=== PATIENT | female | born 1945 | race Caucasian/White ===

== ENCOUNTER 2019-04-07 10:59 | Emergency (ER) | payer OTHER, MEDICARE ==
--- OUTSIDE RECORDS SUMMARY | 2019-04-07 11:02 | XMS REPORT ---
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
--- OUTSIDE RECORDS SUMMARY | 2019-04-07 11:02 | XMS REPORT ---
:1945 Author Organization [employer] Care Team Providers Name Role Phone Jaziel Felder Provider Role Unavailable Allergies No Known Allergies [...] Problem Malaise and fatigue R53.81 Active Medications Medication Code Code Instructions Start End Date Status Dosage System Date Tramadol HCl [facility] 11043028629 50 MG Orally Apr 05, Active 1 tablet Once a day PRN 2019 as needed Pain Results No Known Results Summary Purpose [employer]Works Submission
--- OUTSIDE RECORDS SUMMARY | 2019-04-07 11:02 | XMS REPORT ---
[...] Medications Results No Known Results Summary Purpose [facility] Submission
--- OUTSIDE RECORDS SUMMARY | 2019-04-07 11:02 | XMS REPORT ---
:1945 Author Organization [employer] Care Team Providers Name Role Phone Padmini Hay Provider Role Unavailable Allergies, Adverse Reactions, Alerts Substance Reaction Event Type codeine Info Not Available Drug Allergy MORPHINE rash Drug Allergy Problems Problem Type Condition Code Onset Dates Condition Status Assessment Seasonal allergic rhinitis, J30.2 Active unspecified trigger Problem Vitamin D deficiency E55.9 Active Problem Benign essential HTN I10 Active Problem Anxiety and depression F41.8 Active Problem Current moderate episode of major F32.1 Active depressive disorder without prior episode Problem Gastro-esophageal reflux disease K21.9 Active without esophagitis Problem 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 Problem Restless leg syndrome G25.81 Active Problem Malaise and fatigue R53.81 Active Medications Medication Code Code Instructions Start End Status Dosage System Date Date Estrace [facility] 57772089983 0.1 MG/GM Active as Vaginal Daily directed for 2 Weeks, 2 Weeks off Vitamin D-1000 Max [facility] 26738625314 25 MCG ([address] [place]) Orally Once a day Amoxicillin-Pot [facility] [address]-98 Active not Clavulanate defined Requip [facility] 83397374089 3 MG Orally Active 1 tablet 1 Once a day to 3 hours before bedtime Citalopram [facility] 15822778854 40 MG Orally Active 1 tablet Hydrobromide Once a day Omeprazole [facility] 76902877153 10 MG Orally Active 1 capsule Once a day Ropinirole HCl [facility] [address]-76 Active not defined MethylPREDNISolone ND 04776159565 4 MG Orally Dec 23, Active as 2019 directed Hydrocodone-Acetamin [facility] [address]-14 Active not ophen defined Medrol [facility] 31639934280 4 MG Orally as Active as directed directed Vitamin D3 [facility] 10232857545 1000 UNIT Active 1 capsule Orally Once a day Trazodone HCl [facility] 88418465191 50 MG Orally Active 1 tablet Once a day at bedtime as needed Tramadol HCl ND 0 Active not defined Ropinirole HCl [facility] 33776649294 3 mg Active TAKE 1 TABLET BY MOUTH 1 TO 3 HOUR BEFORE AT BEDTIME. Results No Known Results Summary Purpose eClinicalWorks Submission
[2019-04-07] MEDS ORDERED: ONDANSETRON 4 MG/2 ML VIAL ONE (12:45)
[2019-04-07] MEDS ORDERED: FENTANYL CITR 100 MCG/2 ML ONE (12:45)
[2019-04-07 12:55] LABS: Hematocrit 36.6 % (36.0-45.0); RBC Red Blood Cell Count 4.02 M/uL (3.86-4.86)
--- NOTE | 2019-04-07 12:55 | RAD REPORT ---
EXAM DESCRIPTION: CT - Stone Protocol - 04/07/2019 12:38 pm CLINICAL HISTORY: Flank pain. Flank pain;Abd pain COMPARISON: <Comparisons> TECHNIQUE: Axial images were obtained without oral or IV contrast. Lack of contrast limits solid org an and vascular assessment. The [id number] spans the entirety of the system partially obscuring uppermost abdomen and lung bases. Coronal reformatted images were obtained and reviewed. All CT scans are performed using dose optimization technique as appropriate and may include automated exposure control or mA/KV adjustment according to patient size. FINDINGS: The lower lung babin are clear. Imaged portions of the liver and spleen show no suspicious findings on non-contrast imaging. The panc reas and adrenal glands are normal. No pathologic lymphadenopathy in the abdomen or pelvis. No urinary tract stones or obstructive uropathy. No bowel obstruction, free air, free fluid or abscess. Normal appendix noted. Moderate lower lumbar degenerative changes are present with mild degenerative anterolisthesis of L4 o n 5 seen. IMPRESSION: No urinary tract stones or obstructive uropathy. Moderate lower lumbar degenerative changes.
[2019-04-07 12:56] LABS: Absolute Lymphocytes (CBC) 2.3 K/uL (0.7-4.9); Basophils % 0.7 % (0-1.3); Lymphocytes % 32.8 % (15.3-44.8); MPV 8.2 fL (7.6-11.3)
[2019-04-07 13:20] LABS: Albumin 3.3 g/dL (3.4-5.0); Bilirubin Direct 0.1 mg/dL (0-0.2); Bilirubin Total 0.5 mg/dL (0.2-1.0); Potassium 3.4 mmol/L (3.5-5.1); Thyroid Stimulating Hormone 0.864 uIU/mL (0.360-3.740)
--- NOTE | 2019-04-07 13:33 | ER ---
Nurse's Notes [facility] Name: Oralia Garcia Age: 73 yrs Sex: Female : 1945 Arrival Date: 04/07/2019 Time: 11:01 Bed 6 Private MD: Diagnosis: Lumbago with sciatica, left side;Unspecified abdominal pain Presentation: 04/07 11:05 Presenting complaint: Patient states: "I hurt my back, I've been going to Dr. Dias, aj1 but I think I've pinched a nerve, it hurts so bad to bend over or stoop, and its going down my leg and its nauseating me. This has been going on for a week" Denies any recent injury to her back. Reports that she has had X-Rays done at Dr. Dias's office and they were normal. Transition of care: patient was not received from another setting of care. Onset of symptoms was April 07, 2019. Risk Assessment: Do you want to hurt yourself or someone else? Patient reports no desire to harm self or others. Initial Sepsis Screen: Does the patient meet any 2 criteria? No. Patient's initial sepsis screen is negative. Does the patient have a suspected source of infection? No. Patient's initial sepsis screen is negative. Care prior to arrival: None. 11:05 Method Of Arrival: Ambulatory aj1 11:05 Acuity: LIGIA 4 aj1 Triage Assessment: 11:08 General: Appears in no apparent distress. uncomfortable, Behavior is calm, cooperative, aj1 appropriate for age. Pain: Complains of pain in back Pain radiates to right leg and left leg Pain currently is 10 out of 10 on a pain scale. Neuro: Level of Consciousness is awake, alert, obeys commands, Oriented to person, place, time, situation. Cardiovascular: Patient's skin is warm and dry. Respiratory: Airway is patent Respiratory effort is even, unlabored, Respiratory pattern is regular, symmetrical. Musculoskeletal: Circulation, motion, and sensation intact. Historical: - Allergies: 11:08 Morphine; aj1 11:08 Codeine; aj1 - Home Meds: 11:08 None [Active]; aj1 - PMHx: 11:08 Hypertension; aj1 - PSHx: 11:08 Hysterectomy; Cholecystectomy; Tubal ligation; bladder lift; aj1 - Immunization history:: Flu vaccine is not up to date. - Social history:: Smoking status: Patient/guardian denies using tobacco. - Ebola Screening: : Patient denies travel to an Ebola-affected area in the 21 days before illness onset. Screenin:44 Abuse screen: Denies threats or abuse. Denies injuries from another. Nutritional ca1 screening: No deficits noted. Tuberculosis screening: No symptoms or risk factors identified. Fall Risk IV access (20 points). Gait- Weak (10 pts.). Total Galvin Fall Scale indicates Low Risk Score (25-44 pts). Fall prevention measures have been instituted. Side Rails Up X 2 Placed close to Nursing Station Frequent Obs/Assesments occuring As available Patient and Family Educated on Fall Prevention Program and strategies. Assessment: 12:44 General: Appears in no apparent distress. uncomfortable, Behavior is calm, cooperative, ca1 appropriate for age. Pain: Complains of pain in low back area Pain radiates to right leg Pain currently is 10 out of 10 on a pain scale. Quality of pain is described as sharp, shooting, Pain began 2-3 days ago. Is continuous. Neuro: Level of Consciousness is awake, alert, obeys commands, Oriented to person, place, time, situation, Moves all extremities. Cardiovascular: Patient's skin is warm and dry. Respiratory: Airway is patent Respiratory effort is even, unlabored, Respiratory pattern is regular, symmetrical. GI: Reports nausea. : No signs and/or symptoms were reported regarding the genitourinary system. EENT: No signs and/or symptoms were reported regarding the EENT system. Derm: Skin is pink, warm \\T\\ dry. 13:30 Reassessment: Patient appears in no apparent distress at this time. Patient and/or hb family updated on plan of care and expected duration. Pain level reassessed. Patient is alert, oriented x 3, equal unlabored respirations, skin warm/dry/pink. Vital Signs: 11:08 BP 133 / 83; Pulse 72; Resp 18; Temp 97.7; Pulse Ox 98% on R/A; Weight 99.79 kg (R); aj1 Height 5 ft. 4 in. (162.56 cm) (R); Pain 10/10; 12:00 BP 136 / 82; Pulse 70; Resp 15; Pulse Ox 100% on R/A; hb 11:08 Body Mass Index 37.76 (99.79 kg, 162.56 cm) aj1 ED Course: 11:01 Patient arrived in ED. as 11:07 Triage completed. aj1 11:08 Arm band placed on Patient placed in waiting room, Patient notified of wait time. aj1 11:43 Booker Cunningham NP is PHCP. pm1 11:43 Joshua Lincoln MD is Attending Physician. pm1 11:44 Attending Physician role handed off by Joshua Lincoln MD liset 11:44 Cyril Felton MD is Attending Physician. [facility] 11:50 Carey Mcnamara RN is Primary Nurse. jl7 12:38 Initial lab(s) drawn, by or, sent to lab. Inserted saline lock: 22 gauge in right ca1 forearm, using aseptic technique. Blood collected. 12:44 Patient has correct armband on for positive identification. Bed in low position. Call ca1 light in reach. Side rails up X 1. Pulse ox on. NIBP on. Warm blanket given. 12:46 CT Stone Protocol In Process Unspecified. EDMS 14:07 No provider procedures requiring assistance completed. IV discontinued, intact, jl7 bleeding controlled, No redness/swelling at site. Pressure dressing applied. Administered Medications: 13:45 Not Given (Other Intervention Used): fentaNYL (PF) 50 mcg IVP once; RASS on ADMIN: ss Combtv4, Very Agttd3, Agttd2, Rstlss1, AlertClm0, Drwsy-1, Lt Sdtn-2, Mod Sdtn-3, Dp Sdtn-4, UnArsble-5 13:50 Drug: TORadol - Ketorolac 15 mg Route: IVP; Site: right forearm; jl7 14:06 Follow up: Response: No adverse reaction; Pain is unchanged, physician notified jl7 13:51 Drug: Zofran 4 mg Route: IVP; Site: right forearm; jl7 14:07 Follow up: Response: No adverse reaction jl7 14:06 Drug: Lidocaine-Tetracaine 2 application Route: Topical; Site: affected area; jl7 14:06 Follow up: Response: Medication administered at discharge. jl7 Outcome: 13:32 Discharge ordered by . pm1 14:07 Discharged to home ambulatory. jl7 14:07 Condition: stable 14:07 Discharge instructions given to patient, Instructed on discharge instructions, follow up and referral plans. medication usage, Demonstrated understanding of instructions, follow-up care, medications, Prescriptions given X 2. 14:10 Patient left the ED. jl7 Signatures: Dispatcher [employer] EDJeanie Nunez RN RN aj1 Cyril Felton MD MD cha Martinez, Amelia as Marinas, Patrick, TOOL FILER HAND TOOL FILER HAND pm1 Marina Ayoub RN RN Carey Mcnamara RN RN jl7 Liz Dugan RN RN ca1 Tsering Ramos RN ss
--- NOTE | 2019-04-07 13:34 | EDPHYS ---
Physician Documentation [facility] Name: Oralia Garcia Age: 73 yrs Sex: Female : 1945 Arrival Date: 04/07/2019 Time: 11:01 Bed 6 Private MD: ED Physician Cyril Felton HPI: 04/07 12:29 This 73 yrs old Female presents to ER via Ambulatory with complaints of Back pm1 Pain, Nausea. 12:29 The patient presents with pain that is chronic, with no known mechanism of injury. The pm1 symptoms are located in the low back. Onset: The symptoms/episode began/occurred Back problems for many years but worse the past few weeks. Increased pain with bending forward. Noticed that her pain has been progressively getting worse since . The pain radiates to the left leg. Associated signs and symptoms: Pertinent positives: abdominal pain, nausea, Pertinent negatives: chest pain, dysuria, fever, incontinence, numbness, tingling, vomiting, weakness. Modifying factors: The patient symptoms are alleviated by rest, specific position, the patient symptoms are aggravated by bending. Severity of symptoms: in the emergency department the symptoms are actually worse. Has been seeing Dr. Dias for her right shoulder pain. Historical: - Allergies: 11:08 Morphine; aj1 11:08 Codeine; aj1 - Home Meds: 11:08 None [Active]; aj1 - PMHx: 11:08 Hypertension; aj1 - PSHx: 11:08 Hysterectomy; Cholecystectomy; Tubal ligation; bladder lift; aj1 - Immunization history:: Flu vaccine is not up to date. - Social history:: Smoking status: Patient/guardian denies using tobacco. - Ebola Screening: : Patient denies travel to an Ebola-affected area in the 21 days before illness onset. ROS: 12:29 Constitutional: Negative for fever, chills, and weight loss, Eyes: Negative for injury, pm1 pain, redness, and discharge, ENT: Negative for injury, pain, and discharge, Neck: Negative for injury, pain, and swelling, Cardiovascular: Negative for chest pain, palpitations, and edema, Respiratory: Negative for shortness of breath, cough, wheezing, and pleuritic chest pain. 12:29 : Negative for injury, bleeding, discharge, and swelling, MS/Extremity: Negative for injury and deformity, Skin: Negative for injury, rash, and discoloration, Neuro: Negative for headache, weakness, numbness, tingling, and seizure. 12:29 Abdomen/GI: Positive for abdominal pain, nausea, of the abdomen diffusely, Negative for vomiting, diarrhea, constipation. 12:29 Back: Positive for flank pain, on the left, radiation to left lower leg. Exam: 12:29 Constitutional: This is a well developed, well nourished patient who is awake, alert, pm1 and in no acute distress. Head/Face: Normocephalic, atraumatic. Neck: Trachea midline, no thyromegaly or masses palpated, and no cervical lymphadenopathy. Supple, full range of motion without nuchal rigidity, or vertebral point tenderness. No Meningismus. Chest/axilla: Normal chest wall appearance and motion. Nontender with no deformity. No lesions are appreciated. Cardiovascular: Regular rate and rhythm with a normal S1 and S2. No gallops, murmurs, or rubs. Normal PMI, no JVD. No pulse deficits. Respiratory: Lungs have equal breath sounds bilaterally, clear to auscultation and percussion. No rales, rhonchi or wheezes noted. No increased work of breathing, no retractions or nasal flaring. Abdomen/GI: Soft, non-tender, with normal bowel sounds. No distension or tympany. No guarding or rebound. No evidence of tenderness throughout. 12:29 Skin: Warm, dry with normal turgor. Normal color with no rashes, no lesions, and no evidence of cellulitis. MS/ Extremity: Pulses equal, no cyanosis. Neurovascular intact. Full, normal range of motion. 12:29 Back: normal spinal alignment noted, vertebral tenderness, is not appreciated, Straight leg raises: right lower extremity does not illicit pain, left lower extremity illicits pain, at 30 degrees. 12:29 Neuro: Orientation: is normal, Motor: is normal, moves all fours, Sensation: is normal, no obvious gross deficits. Vital Signs: 11:08 BP 133 / 83; Pulse 72; Resp 18; Temp 97.7; Pulse Ox 98% on R/A; Weight 99.79 kg (R); aj1 Height 5 ft. 4 in. (162.56 cm) (R); Pain 10/10; 12:00 BP 136 / 82; Pulse 70; Resp 15; Pulse Ox 100% on R/A; hb 11:08 Body Mass Index 37.76 (99.79 kg, 162.56 cm) aj1 MDM: 11:44 Patient medically screened. liset 13:30 Data reviewed: vital signs. Data interpreted: Pulse oximetry: on room air is 98 %. pm1 Interpretation: normal. Counseling: I had a detailed discussion with the patient and/or guardian regarding: the historical points, exam findings, and any diagnostic results supporting the discharge/admit diagnosis, lab results, radiology results, the need for outpatient follow up, for definitive care, a neurosurgeon, for MRI as needed, to return to the emergency department if symptoms worsen or persist or if there are any questions or concerns that arise at home. 04/07 12:14 Order name: Basic Metabolic Panel; Complete Time: 13:28 pm1 04/07 12:14 Order name: CBC with Diff; Complete Time: 13:28 pm1 04/07 12:14 Order name: Creatinine for Radiology; Complete Time: 13:57 pm1 04/07 12:14 Order name: Hepatic Function; Complete Time: 13:28 pm1 04/07 12:14 Order name: Lipase; Complete Time: 13:28 pm1 04/07 12:14 Order name: TSH; Complete Time: 13:28 pm1 04/07 12:14 Order name: IV Saline Lock; Complete Time: 12:42 pm1 04/07 12:14 Order name: Labs collected and sent; Complete Time: 12:42 pm1 04/07 12:14 Order name: CT Stone Protocol; Complete Time: 13:02 pm1 Administered Medications: 13:45 Not Given (Other Intervention Used): fentaNYL (PF) 50 mcg IVP once; RASS on ADMIN: ss Combtv4, Very Agttd3, Agttd2, Rstlss1, AlertClm0, Drwsy-1, Lt Sdtn-2, Mod Sdtn-3, Dp Sdtn-4, UnArsble-5 13:50 Drug: TORadol - Ketorolac 15 mg Route: IVP; Site: right forearm; jl7 14:06 Follow up: Response: No adverse reaction; Pain is unchanged, physician notified jl7 13:51 Drug: Zofran 4 mg Route: IVP; Site: right forearm; jl7 14:07 Follow up: Response: No adverse reaction [facility] 14:06 Drug: Lidocaine-Tetracaine 2 application Route: Topical; Site: affected area; [facility] 14:06 Follow up: Response: Medication administered at discharge. [facility] Disposition: 04/08 07:30 Co-signature as Attending Physician, Cyril Felton MD I agree with the assessment and liset plan of care. Disposition: 04/07/19 13:32 Discharged to Home. Impression: Lumbago with sciatica, left side, Unspecified abdominal pain. - Condition is Stable. - Discharge Instructions: Abdominal Pain, Adult, Back Pain, Adult, Sciatica. - Prescriptions for Zofran 4 mg Oral Tablet - take 1 tablet by ORAL route every 12 hours As needed; 20 tablet. Lidoderm 5 % Topical adhesive patch,medicated - apply 1 patch by TRANSDERMAL route once daily As needed; 30 unit. - Medication Reconciliation Form, Thank You Letter, Antibiotic Education, Prescription Opioid Use form. - Follow up: Emergency Department; When: As needed; Reason: Worsening of condition. Follow up: Private Physician; When: 2 - 3 days; Reason: Recheck today's complaints, Continuance of care, Re-evaluation by your physician. - Problem is new. - Symptoms have improved. Signatures: Dispatcher [employer] EDMS Jeanie Shirley RN RN aj1 Cyril Felton MD MD cha Marinas, Patrick, JERRY SHRIMP BOAT CAPTAIN pm1 Carey Mcnamara RN RN jl7 Tsering Ramos RN ss Corrections: (The following items were deleted from the chart) 04/07 14:10 13:32 04/07/2019 13:32 Discharged to Home. Impression: Lumbago with sciatica, left jl7 side; Unspecified abdominal pain. Condition is Stable. Forms are Medication Reconciliation Form, Thank You Letter, Antibiotic Education, Prescription Opioid Use. Follow up: Emergency Department; When: As needed; Reason: Worsening of condition. Follow up: Private Physician; When: 2 - 3 days; Reason: Recheck today's complaints, Continuance of care, Re-evaluation by your physician. Problem is new. Symptoms have improved. pm1
[2019-04-07] MEDS ORDERED: KETOROLAC 30 MG/ML INJ ONE (13:48)
[2019-04-07] MEDS ORDERED: LIDOCAINE 4% PATCH ONE (13:58)
[2019-04-07 14:17] VITALS: TEMP 97.7
[2019-04-07 14:19] VITALS: BP 136/82; O2SAT 100
== END 2019-04-07 14:10 | disposition home or self-care (01) ==
LOC: ER 10:59
DX: M54.42 Lumbago with sciatica, left side (principal); R10.9 Unspecified abdominal pain; Z88.6 Allergy status to analgesic agent
CPT/HCPCS: 85025; 80048; 36415; 80076; 84443; 83690; 76377; 74176; 96375; 96374; 99284; J2405; J3010

== ENCOUNTER 2020-11-26 15:02 | Emergency (ER) | payer OTHER ==
--- OUTSIDE RECORDS SUMMARY | 2020-11-26 15:06 | XMS REPORT | Continuity of Care Document ---
:1945 Author Organization [facility] t Address [address] [place] [address] Care Team Providers Name Role Phone Obi-Ofodile Attending Clinician Obi-Ofodile Admitting Clinician Problems Condition Condition Condition Status Onset Resolution Last Treating Co mments Source Name Details Category Date Date Treatment Clinician Date OBSTRUCTED Diagnosis Active 2016-09-02 Memoria UROPATHY 09-02 04:16:00 l 00:00: [place] OBSTRUCTED 00 UROPATHY Active 09/02/2016 [facility] KIDNEY Diagnosis Active 2016-09-07 Mem oria STONE ON 09-02 21:56:00 l RIGHT KIDNEY 00:00: [place] SIDE, STONE ON 00 ACCELERATE RIGHT D SIDE, ACCELERATE D Active 09/02/2016 [facility] ESSENTIAL Diagnosis Active 2016-09-07 Memoria (PRIMARY) 21:56:00 l HYPERTENSI Sheldon n ON ESSENTIAL (PRIMARY) HYPERTENSI ON Active [facility] ILLNESS, Diagnosis Active 2016-09-02 M emoria UNSPECIFIE 04:16:00 l D ILLNESS, [place]ldon n UNSPECIFIE D Active [facility] CALCULUS Diagnosis Active 2016-09-07 M emoria OF KIDNEY 21:56:00 l CALCULUS [place]on n OF KIDNEY Active [facility] Allergies, Adverse Reactions, Alerts Allergy Allergy Status Severity Reaction(s) Onset Inactive Treating Comm ents Source Name Type Date Date Clinician morphine morphine Active Memori a l [place] codeine Adverse Active rash [facility] MORPHINE Adverse Active rash [facility] Social History Smoking Status Start Date Stop Date Source Social History [facility] Medications Ordered Filled Start Stop Current Ordering Indication Dosage Frequency Signature Comments Components Source Medication Medication Date Date Medication? Clinician (SIG) Name Name Zolpidem Zolpidem 0 Yes Jaziel [address] [facility] Tartrate Tartrate 10-29 Fel[place] at bedtime [facility] 00:[facility]: Memoria 00 [facility] ondansetron No Route: IV, Memoria (ANES) 09-02 Drug form: l 16:25: INJ, ONCE, Stop date: 09/02/16 11:25:00 CDT dexamethaso No Route: IV, Memoria ne (ANES) 09-02 Drug form: l 16:25: INJ, ONCE, Stop date: 09/02/16 11:25:00 CDT propofol No Route: IV, Mem oria (ANES) 09-02 Drug form: l 16:25: INJ, ONCE, Stop date: 09/02/16 11:25:00 CDT lidocaine No Route: IV, Me moria (ANES) 09-02 Drug form: l 16:25: INJ, ONCE, Stop date: 09/02/16 11:25:00 CDT midazolam No Route: IV, Me moria (ANES) 09-02 Drug form: l 16:25: SOLN, Broderick 00 ONCE, Stop date: 09/02/16 11:25:00 CDT fentaNYL No Route: IV, Mem oria (ANES) 09-02 Drug form: l 16:25: INJ, ONCE, Stop date: 09/02/16 11:25:00 CDT tramadol Yes 1 - 2 Memoria hydrochlori -06 tabs, PO, l de 50 MG 16:23: Q4-6H, PRN Her jasso Oral Tablet 00 Pain Score [Ultram] 1-5, X 4 day, # 30 tab, 0 Refill(s) Phenazopyri Yes 200 mg = 1 Memoria dine 5-06 tab, PO, l hydrochlori 16:23: TID, PRN He qiann de 200 MG 00 Dysuria, X Oral Tablet 10 day, # [Pyridium] 30 tab, 0 Refill(s) Cephalexin Yes 500 mg = 1 M emoria 500 MG Oral 506 cap, PO, l Capsule 16:23: BID, X 10 Esme nn [Keflex] 00 day, # 20 cap, 0 Refill(s) acetaminoph No Route: IV, Memoria en (ANES) 09-02 Drug form: l (ANES) 16:00: INJ, Start Esme nn date: 09/02/16 11:00:00 CDT, Stop date: 09/02/16 12:00:00 CDT ceFAZolin No Route: IV, Me moria (ANES) 09-02 Drug form: l (ANES) 15:45: INJ, Start Esme nn date: 09/02/16 10:45:00 CDT, Stop date: 09/02/16 11:45:00 CDT sodium No Route: IV, Memor ia chloride 09-02 Total l 0.9% 1000 15:45: Volume: Esme nn ml INJ 00 1,000, (ANES) Start date: 09/02/16 10:45:00 CDT, Stop date: 09/02/16 11:45:00 CDT Hydromorpho No Notes: Diallo dulce maria ne -06 Same as l 15:14: Dilaudid Meperidine No Notes: Memor ia 5-06 (Same As: l 15:14: Demerol) Naloxone No Notes: Memoria 5-06 Same as l 15:14: Narcan Diphenhydra No Notes: Diallo dulce maria mine -06 (Same as: l 15:14: Benadryl) Glycopyrrol No Notes: Diallo dulce maria ate -06 (Same as: l 15:14: Robinul) Flumazenil No Notes: Memor ia 5-06 (Same as: l 15:14: Romazicon) Ephedrine No Notes: Memori a 5-06 final l 15:14: concentrat ion 5 mg/mL Promethazin No Notes: Do M emoria e 5-06 not give l 15:14: IV push. [place] (Same as: Phenergan) esmolol No Notes: Memoria 5-06 (Same as: l 15:14: Brevibloc) Labetalol No Notes: Memori a 5-06 (Same as: l 15:14: Normodyne, Trandate) Push over 2 minutes Give bolus over 2-3 minutes. Metoprolol No Notes: Memor ia 5-06 (Same as: l 15:14: Lopressor) Push over 2 minutes Hydralazine No Notes: Diallo dulce maria 5-06 (Same as: l 15:14: Apresoline ) Push over 5 minutes Calcium No 1,000 mL, Memor ia Chloride 06 Rate: 75 l 0.0014 15:14: ml/hr, [place] MEQ/ML / 00 Infuse Potassium over: 13.3 Chloride hr, Route: 0.004 IV, Dosing MEQ/ML / Weight Sodium 101.818 Chloride kg, Total 0.103 Volume: MEQ/ML / 1,000, Sodium Start Lactate date: 0.028 09/02/16 MEQ/ML 10:14:00 Injectable CDT, Solution Duration: 30 day, Stop date: 10/02/16 10:13:00 CDT Docusate No Notes: Memoria 5-06 (Same as: l 14:00: Colace) (Do Not Crush) Dilaudid No Notes: Memoria 5-06 Same as l 10:38: Dilaudid Saline No Notes: Memoria Flush 0.9% -06 (Same as: l 10:32: BD Posiflush) Sodium No 1,000 mL, Memori a Chloride 5-06 Rate: 75 l 0.154 10:32: ml/hr, [place] MEQ/ML 00 Infuse Injectable over: 13.3 Solution hr, Route: IV, Dosing Weight 101.818 kg, Total Volume: 1,000, Start date: 09/02/16 5:32:00 CDT, Duration: 30 day, Stop date: 10/02/16 5:31:00 CDT Ondansetron No Notes: Diallo dulce maria 09-02 (Same as: l 10:32: Zofran) [place] 00 MEDICATION WASTE Product Size: 4 mg Product Wasted: ___ mg Zofran No Notes: Memoria 09-02 (Same as: l 09:59: Zofran) [place] 00 MEDICATION WASTE Product Size: 4 mg Product Wasted: ___ mg Dilaudid No Notes: Memoria 09-02 Same as l 09:58: Dilaudid [place] 00 Sodium No 1,000 mL, Memori a Chloride 09-02 Rate: 125 l 0.154 09:52: ml/hr, [place] MEQ/ML 00 Infuse Injectable over: 8 Solution hr, Route: IV, Dosing Weight 101.818 kg, Total Volume: 1,000, Start date: 09/02/16 4:52:00 CDT, Duration: 30 day, Stop date: 10/02/16 4:51:00 CDT Trazodone Trazodone Yes Jaziel [address] [facility] HCl HCl Felder at bedtime [facility] Ondansetron Ondansetron Yes Jaziel not [facility] HCl HCl [facility] defined [facility] Mupirocin Mupirocin Yes Jaziel not [facility] Estrace Estrace Yes Jaziel as [facility] Citalopram Citalopram Yes Jaziel [address] [facility] Hydrobromid Hydrobromid Felder [facility] Lidocaine Lidocaine Yes Jaziel not [facility] Omeprazole Omeprazole Yes Jaziel [address] [facility] Requip Requip Yes Jaziel [address] [facility] Felder to 3 hours [facility] before [facility] Hydrocodone Hydrocodone Yes Jaziel (Schedule [facility] -Acetaminop -Acetaminop Felder II Drug) [facility] - hen hen TK 1 T PO Memoria Q 12 H l Outpati ent Clinics Ropinirole Ropinirole Yes Jaziel TAKE [address] [facility] HCl HCl [place]der TABLET BY [facility] - MOUTH 1 TO Memoria 3 HOUR l BEFORE AT Outpati BEDTIME. ent Clinics Celecoxib Celecoxib Yes Jaziel [address] [facility] [place] with food [facility] Methocarbam Methocarbam Yes Jaziel [address] [facility]der [facility] Immunizations Ordered Filled Immunization Date Status Comments Sourc e Immunization Name Name FluAD FluAD 2018-05-[address] [facility]00 [facility] Out[facility] Vital Signs Vital Name Observation Time Observation Value Comments Source Respitory Rate 2016-09-02 17:15:00 Memori al [place] Systolic (mm Hg) 2016-09-02 17:15:00 Diallo rial [place] Diastolic (mm Hg) 2016-09-02 17:15:00 Mem orial [place] Heart Rate 2016-09-02 17:15:00 [facility] [place] Respitory Rate 2016-09-02 17:00:00 Memori al [place] Systolic (mm Hg) 2016-09-02 17:00:00 Diallo rial [place] Diastolic (mm Hg) 2016-09-02 17:00:00 Mem orial [place] Diastolic (mm Hg) 2016-09-02 16:45:00 Mem orial [place] Respitory Rate 2016-09-02 16:45:00 Memori al [place] Systolic (mm Hg) 2016-09-02 16:45:00 Diallo rial [place] Heart Rate 2016-09-02 14:11:00 [facility] [place] Heart Rate 2016-09-02 12:41:00 [facility] [place] Temperature Oral (F) 2016-09-02 12:41:00 98.0 F [facility] [place] Height 2016-09-02 09:36:00 162.56 cm [facility] Weight 2016-09-02 09:36:00 [facility] [place] BMI Calculated 2016-09-02 09:36:00 Memori al [place] Temperature Oral (F) 2016-09-02 09:31:00 97.8 F [facility] Procedures This patient has no known procedures. Encounters Start End Encounter Admission Attending Care Care Encounter Source Date/Time Date/Time Type Type Clinicians Facility Department ID 2020-11-18 2020-11-18 Outpatient [facility] [id number] [facility] 2020-11-11 2020-11-11 Outpatient [facility]LMLC [facility] [id number] [facility] 2020-11-10 2020-11-10 Outpatient [facility] [id number] [facility] 2020-11-04 2020-11-04 [facility] [id number] [facility] 2020-10-15 2020-10-15 [facility] [id number] [facility] 2020-09-16 2020-09-16 Out[facility] [id number] [facility] 2020-09-07 2020-09-07 Outpatient STLMLC STLMLC [id number] [facility] 2020-09-02 2020-09-02 Outpatient [facility]C [facility] [id number] [facility] 2020-08-24 2020-08-24 Outpatient STLMLC STLMLC [id number] [facility] 2020-08-05 2020-08-05 Outpatient STLMLC STLMLC [id number] [facility] 2020-07-22 2020-07-22 Outpatient STLMLC STLMLC [id number] [facility] 2020-06-09 2020-06-09 Outpatient STLMLC STLMLC [id number] [facility] 2020-06-02 2020-06-02 Outpatient STLMLC STLMLC [id number] [facility] 2020-05-13 2020-05-13 Outpatient STLMLC STLMLC [id number] [facility] 2020-04-28 2020-04-28 Outpatient STLMLC STLMLC [id number] [facility] 2020-04-13 2020-04-13 Outpatient STLMLC STLMLC [id number] [facility] 2020-03-30 2020-03-30 Outpatient STLMLC STLMLC [id number] [facility] 2020-03-22 2020-03-22 Outpatient STLMLC STLMLC [id number] [facility] 2020-03-16 2020-03-16 Outpatient STLMLC STLMLC [id number] [facility] 2020-03-02 2020-03-02 Outpatient STLMLC STLMLC [id number] [facility] 2020-02-20 2020-02-20 Outpatient STLMLC STLMLC [id number] [facility] 2020-01-26 2020-01-26 Outpatient STLMLC STLMLC [id number] [facility] 2020-01-15 2020-01-15 [facility] [id number] [facility] 14:00:00 14:00:00 [place] [employer] [facility] Medicine l Medicine Outpati ent Clinics 2019-12-29 2019-12-29 [facility] [id number] [facility] 15:30:00 15:30:00 [place] [employer] [facility] l Medicine Outpati ent Clinics 2019-12-15 2019-12-15 [facility] [id number] [facility] 15:30:00 15:30:00 [place] [employer] [facility] Medicine l Medicine Outpati ent Clinics 2019-12-09 2019-12-09 [facility] [id number] [facility] 09:51:00 09:51:00 [place] [employer] [facility] Medicine Outpati ent Clinics 2019-12-01 2019-12-01 [facility] [id number] [facility] 16:45:00 16:45:00 [place] [employer] [facility] Medicine Outpati ent Clinics 2019-11-17 2019-11-17 [facility] [id number] [facility] 10:15:00 10:15:00 t [employer] [facility] Medicine Outpati ent Clinics 2019-10-30 2019-10-30 [facility] [id number] [facility] 16:00:00 16:00:00 t [employer] [facility] Medicine Outpati ent Clinics 2019-10-30 2019-10-30 [facility] [id number] [facility] 15:30:00 15:30:00 [place] [employer] [facility] Medicine Outpati ent Clinics 2019-10-16 2019-10-16 [facility] [id number] [facility] 13:30:00 13:30:00 [place] [employer] [facility] Medicine Outpati ent Clinics 2019-08-20 2019-08-20 [facility] [id number] [facility] 15:08:00 15:08:00 [place] [employer] [facility] l Medicine Outpati ent Clinics 2019 2019 [facility] [id number] [address] 10:45:00 10:45:00 t [employer] [facility] Outpati ent Clinics 2019-07-08 2019-07-08 [facility] [id number] [facility] 13:30:00 13:30:00 t [employer] [facility] Outpati ent Clinics 2019-07-02 2019-07-02 [facility] [id number] [facility] 11:14:00 11:14:00 t [employer] [facility] Medicine Outpati ent Clinics 2019-06-18 2019-06-18 [facility] [id number] [facility] 06:25:00 06:25:00 t [employer] [facility] Outpati ent Clinics 2019-06-17 2019-06-17 [facility] [id number] [facility] 14:15:00 14:15:00 t [employer] [facility] 2019-05-15 2019-05-15 [facility] [id number] [facility] 08:25:00 08:25:00 t [facility] ent Clinics 2019-05-13 2019-05-13 [facility] [id number] [facility] 14:39:00 14:39:00 t [facility] ent Clinics 2019-05-12 2019-05-12 [facility] [id number] [facility] 14:11:00 14:11:00 t [facility] ent Clinics 2019-05-07 2019-05-07 [facility] [id number] [facility] 13:00:00 13:00:00 t [employer] [facility] 2019-05-05 2019-05-05 [facility] [id number] 10:15:00 10:15:00 t [employer] [facility] ent Clinics 2019-05-01 2019-05-01 [facility] [id number] 08:30:00 08:30:00 [place] [facility] s - [facility] ent Clinics 2019-04-15 2019-04-15 [facility] [id number] 15:30:00 15:30:00 t [facility] ent Clinics 2019-04-11 2019-04-11 [facility] [id number] [facility] 11:41:00 11:41:00 t [facility] ent Clinics 2019-04-02 2019-04-02 [facility] [id number] 11:00:00 11:00:00 t [facility] ent Clinics 2019-03-05 2019-03-05 [facility] [id number] 13:00:00 13:00:00 t [facility] ent Clinics 2019-03-05 2019-03-05 [facility] [id number] 11:24:00 11:24:00 t [facility] [place] [facility] ent Clinics 2019-02-21 2019-02-21 [facility] [id number] 09:01:00 09:01:00 t [facility] ent Clinics 2019-02-12 2019-02-12 [facility] [id number] 16:21:00 16:21:00 t [facility] Clinics 2019-02-11 2019-02-11 [facility] [id number] 14:30:00 14:30:00 t [facility] ent Clinics 2019-01-30 2019-01-30 [facility] [id number] [facility] 13:10:00 13:10:00 t [facility] ent Clinics 2019-01-29 2019-01-29 [facility] [id number] 09:15:00 09:15:00 t [employer] [facility] 2018-12-23 2018-12-23 [facility] [id number] 14:30:00 14:30:00 t [facility] ent Clinics 2018-12-17 2018-12-17 [facility] [id number] [facility] 13:15:00 13:15:00 t [employer] [facility] 2018-10-03 2018-10-03 [facility] [id number] [facility] 13:30:00 13:30:00 t [facility] ent Clinics 2018-09-12 2018-09-12 [facility] [id number] [facility] 12:09:00 12:09:00 t [facility] ent Clinics 2018-09-11 2018-09-11 [facility] [id number] 10:28:00 10:28:00 t [facility] ent Clinics 2018-09-05 2018-09-05 [facility] [id number] [facility] 14:45:00 14:45:00 t [employer] [facility] 2018-08-26 2018-08-26 [facility] [id number] [facility] 13:00:00 13:00:00 t [employer] [facility] Medicine l Medicine Outpati ent Clinics 2018-07-29 2018-07-29 [facility] [id number] 16:45:00 16:45:[address] [place] [address] [facility] - [facility] Medicine l Medicine Outpati ent Clinics 2018-07-29 2018-07-29 [facility] [id number] 15:46:00 15:46:[address] [place] [address] Luke s - Drive [facility] Medicine l Medicine Outpati ent Clinics 2018-07-10 2018-07-10 [facility] [id number] [facility] 15:43:00 15:43:00 [place] [employer] [facility] s - [facility] Medicine l Medicine Outpati ent Clinics 2018-06-25 2018-06-25 [facility] [id number] 10:30:00 10:30:00 [place] [employer] [facility] s - [facility] Medicine l Medicine Outpati ent Clinics 2018-05-30 2018-05-30 [facility] [id number] [facility] 16:16:00 16:16:00 [place] [employer] [facility] - [facility] Medicine l Medicine Outpati ent Clinics 2018-05-27 2018-05-27 [facility] [id number] [facility] 13:00:00 13:00:00 [place] [employer] [facility] - [facility] Medicine l Medicine Outpati ent Clinics 2018-05-20 2018-05-20 [facility] [id number] [facility] 12:05:00 12:05:00 [place] [employer] [facility] s - [facility] Medicine l Medicine Outpati ent Clinics 2017-11-20 2017-11-20 [facility] [id number] [facility] 10:36:00 10:36:00 [place] [employer] [facility] - [facility] Medicine l Medicine Outpati ent Clinics 2017-10-02 2017-10-02 [facility] [id number] [facility] 13:15:00 13:15:[address] [place] [address] [facility] - Drive [facility] Medicine l Medicine Outpati ent Clinics 2017-09-13 2017-09-13 [facility] [id number] [facility] 10:07:00 10:07:[address] [place] [address] [facility] - Drive [facility] Medicine Outpati ent Clinics 2017-09-12 2017-09-12 [facility] [id number] [facility] 10:16:00 10:16:[address] [place] [address] [facility] - Drive [facility] Medicine Outpati ent Clinics 2017-09-11 2017-09-11 [facility] [id number] [facility] 13:15:00 13:15:[address] [place] [address] [facility] - Drive [facility] Medicine Outpati ent Clinics 2017-08-24 2017-08-24 [facility] [id number] [facility] 08:15:00 08:15:[address] [place] [address] [facility] s - Drive [facility] Outpati ent Clinics 2017-08-22 2017-08-22 [facility] [id number] 13:00:00 13:00:[address] [place] [address] [facility] s - Drive [facility] Outpati ent Clinics 2016-09-02 2016-09-02 Outpatient [facility] [id number] 05:32:00 16:00:00 , Mikael 26 Results Test Description Test Time Test Comments Results Result Comments Source CHEM PANEL 2016-09-02 0.8 [facility] 17:40:00 [place] PARATHYROID PROFILE 2016-09-02 1.17 Mem[facility] ial 17:40:00 [place] PARATHYROID PROFILE 2016-09-02 1.10 Memor ial 17:40:00 [place] CHEM PANEL 2016-09-02 2.1 [facility] 14:03:00 [place] ELECTROLYTES 2016-09-02 26 [facility] 14:03:00 [place] ELECTROLYTES 2016-09-02 8.4 [facility] 14:03:00 [place] ELECTROLYTES 2016-09-02 12.4 [facility] 14:03:00 [place] ELECTROLYTES 2016-09-02 4.4 [facility] 14:03:00 [place] ELECTROLYTES 2016-09-02 106 [facility] 14:03:00 [place] ELECTROLYTES 2016-09-02 29 [facility] 14:03:00 [place] ELECTROLYTES 2016-09-02 140 [facility] 14:03:00 [place] ELECTROLYTES 2016-09-02 51 [facility] 14:03:00 [place] ELECTROLYTES 2016-09-02 1.11 [facility] 14:03:00 [place] ELECTROLYTES 2016-09-02 98 [facility] 14:03:00 [place] ELECTROLYTES 2016-09-02 4.4 [facility] 14:03:00 [place] ELECTROLYTES 2016-09-02 8.4 [facility] 14:03:00 [place] ELECTROLYTES 2016-09-02 3.0 [facility] 14:03:00 [place] ELECTROLYTES 2016-09-02 25 [facility] 14:03:00 [place] ELECTROLYTES 2016-09-02 107 [facility] 14:03:00 [place] ELECTROLYTES 2016-09-02 141 [facility] 14:03:00 [place] ELECTROLYTES 2016-09-02 13.4 [facility] 14:03:00 [place] ELECTROLYTES 2016-09-02 49 [facility] 14:03:00 [place] ELECTROLYTES 2016-09-02 99 [facility] 14:03:00 [place] ELECTROLYTES 2016-09-02 29 [facility] 14:03:00 [place] ELECTROLYTES 2016-09-02 1.14 [facility] 14:03:00 [place] ELECTROLYTES 2016-09-02 4.5 [facility] 14:03:00 [place] HEMATOLOGY 2016-09-02 34.3 [facility] 14:03:00 [place] HEMATOLOGY 2016-09-02 11.8 [facility] 14:03:00 [place] HEMATOLOGY 2016-09-02 34.1 [facility] 14:03:00 [place] HEMATOLOGY 2016-09-02 8.3 [facility] 14:03:00 [place] HEMATOLOGY 2016-09-02 12.7 [facility] 14:03:00 [place] HEMATOLOGY 2016-09-02 213 [facility] 14:03:00 [place] HEMATOLOGY 2016-09-02 14:03:00 Test Item Value Reference Range Interpretation Comme nts MCH (test code = MCH) 30.5 pg 27.0-31.0 [facility] [id number] 14:03:0089.5[facility] 2016-09-02 14:03:0034.7[facility] [id number] 14:03:0011.8[facility] [id number] 14:03:003.88[facility] FzluhreNTZICRGYAL1066-36-19 14:03:007.3[facility] FtpiefoULRAHMCYZY6016-39-71 14:03:0038.0[facility] UFYBMEPUSO3640-23-78 14:03:0048.1[facility] LthiorfUGNCIUSYBY1668-72-39 14:03:00 0.8[facility] FaigtqvBXFWURZUUW4203-60-31 14:03:000.1[facility]annHEMATOLOGY 2016-09-02 14:03:0011.4[facility] [id number] 14:03:001.8[facility] [id number] 14:03:000.7[facility] [id number] 14:03:002.8[facility] [id number] 14:03:003.5[facility]
[2020-11-26 17:24] LABS: Absolute Lymphocytes (CBC) 2.2 K/uL (0.7-4.9); Basophils % 0.6 % (0-1.3); Hematocrit 40.8 % (36.0-45.0); Lymphocytes % 20.9 % (15.3-44.8); MPV 7.3 fL (7.6-11.3); RBC Red Blood Cell Count 4.54 M/uL (3.86-4.86)
[2020-11-26] MEDS ORDERED: FAMOTIDINE 20 MG/2 ML VIAL IV ONE (17:28)
[2020-11-26] MEDS ORDERED: ONDANSETRON 4 MG/2 ML VIAL ONE (17:28)
[2020-11-26] MEDS ORDERED: NA CHLORIDE 0.9% 1,000 ML ONE (17:28)
[2020-11-26 17:37] LABS: Protime INR 1.04
[2020-11-26 17:51] LABS: ALT/SGPT 19 U/L (12-78); AST/SGOT 17 U/L (15-37); Albumin 3.4 g/dL (3.4-5.0); Alkaline Phosphatase 81 U/L (45-117); BUN Blood Urea Nitrogen 21 mg/dL (7-18); Bicarbonate 28 mmol/L (21-32); Bilirubin Direct 0.2 mg/dL (0-0.2); Bilirubin Total 0.7 mg/dL (0.2-1.0); Glucose Level 90 mg/dL (74-106); Lipase 50 U/L (73-393); Magnesium 2.3 mg/dL (1.8-2.4); NT PRO-BNP 388 pg/mL (<125); Potassium 3.8 mmol/L (3.5-5.1); Sodium Level 140 mmol/L (136-145); Troponin (Emerg Dept Use Only) < 0.02 ng/mL (0.0-0.045)
--- NOTE | 2020-11-26 18:18 | RAD REPORT ---
EXAM DESCRIPTION: RAD - Chest Single View - 11/26/2020 5:43 pm CLINICAL HISTORY: COUGH COMPARISON: None TECHNIQUE: AP portable chest image was obtained 11/26/2020 5:43 pm . FINDINGS: Lungs are clear. Heart and vasculature are normal. No measurable pleural effusion and no p neumothorax. No acute bony abnormality seen. No acute aortic findings suspected. IMPRESSION: No acute cardiopulmonary process.
--- NOTE | 2020-11-26 18:29 | RAD REPORT ---
EXAM DESCRIPTION: CT - Abdomen Pelvis W Contrast - 11/26/2020 6:20 pm CLINICAL HISTORY: ABD PAIN COMPARISON: No comparisons TECHNIQUE: Biphasic, helical CT imaging of the abdomen and pelvis was performed following 100 ml non -ionic IV contrast. No oral contrast administered. All CT scans are performed using dose optimization technique as appropriate and may include automated exposure control or mA/KV adjustment according to patient size. FINDINGS: No suspicious findings in the lung bases. The liver, spleen, and pancreas show no suspicious findings. Gallbladder is absent. No biliary tree d ilatation. Symmetric renal function is seen with no hydronephrosis or suspicious renal mass. Two abutting upper pole left renal cysts are present 2.3 cm and 2.6 cm in size. No pyelonephritis or acute parenchymal p rocess. No bladder abnormalities. No adrenal abnormalities. No dilated bowel loops or bowel wall thickening. No suspicion for appendicitis No free air, free flui d or inflammatory stranding. No hernia, mass or bulky lymphadenopathy. Uterus is surgically absent. Ovaries are surgically absent or atrophic. No adnexal mass. Disc and bone degenerative changes are present. No acute findings seen. Vascular calcifications are p resent. IMPRESSION: Contrast enhanced CT abdomen and pelvis showing no significant or suspicious finding.
[2020-11-26 18:46] LABS: Urine Blood Trace-lysed (Negative); Urine Glucose Negative (Negative); Urine Protein Negative (Negative); Urine pH 5.5 (5.0-7.0)
[2020-11-26] MEDS ORDERED: ROPINIROLE HCL 1 MG TAB PO ONE (19:00)
--- NOTE | 2020-11-26 19:10 | ER ---
Nurse's Notes [facility] Name: Oralia Garcia Age: 75 yrs Sex: Female : 1945 Arrival Date: 11/26/2020 Time: 15:10 Bed 3 Private MD: Diagnosis: Vomiting;Diarrhea, unspecified;Headache;UTI/ Urinary tract infection, site not specified Presentation: 11/26 15:13 Chief complaint: Patient states: i was at work in the bathroom with a stomach ache. i tw2 did not pass out. i was laying on the floor to try to feel better. i eventually threw up and then felt better. i was going to lay back down. my company called them. i think i am ok. i vomited once today. yesterday i stayed home yesterday with fever, nausea. Chief complaint: Patient states: i was having stomach pain and headache before i threw up. Coronavirus screen: fatigue, nausea, vomiting. Client presents with at least one sign or symptom that may indicate coronavirus-19. Standard/surgical mask placed on the client. Provider contacted for isolation considerations. Ebola Screen: Patient denies travel to an Ebola-affected area in the 21 days before illness onset. Initial Sepsis Screen: Does the patient meet any 2 criteria? No. Patient's initial sepsis screen is negative. Does the patient have a suspected source of infection? No. Patient's initial sepsis screen is negative. Risk Assessment: Do you want to hurt yourself or someone else? Patient reports no desire to harm self or others. Onset of symptoms was November 26, 2020. 15:13 Method Of Arrival: EMS: [facility] tw2 15:13 Acuity: LIGIA 3 tw2 15:14 Chief complaint: EMS states: pt began to feel nauseous and weak yesterday , today iw vomited X 1 also having mid abd pain but felt better after vomiting. Risk Assessment: Do you want to hurt yourself or someone else? Patient reports no desire to harm self or others. Onset of symptoms. 15:14 Method Of Arrival: EMS: [facility] iw 15:14 Acuity: LIGIA 3 iw Triage Assessment: 15:17 General: Appears in no apparent distress. obese, well groomed, Behavior is calm, tw2 cooperative, appropriate for age. Pain: Complains of pain in abdomen. Neuro: Reports headache. GI: Reports nausea. Historical: - Allergies: 15:16 Codeine; tw2 15:16 Morphine; tw2 - Home Meds: 15:16 citalopram 10 mg tab 1 tab once daily [Active]; ropinirole oral [Active]; Celebrex Oral tw2 [Active]; - PMHx: 15:16 Arthritis; tw2 - PSHx: 15:16 Cholecystectomy; hysterectomy; tw2 - Immunization history:: Adult Immunizations Client reports having NOT received the Covid vaccine. - Social history:: Smoking status: Patient denies any tobacco usage or history of. - Family history:: not pertinent. Screenin:32 Abuse screen: Denies threats or abuse. Nutritional screening: No deficits noted. tw2 Tuberculosis screening: No symptoms or risk factors identified. Fall Risk Secondary diagnosis (15 points) impaired mobility, pt report weakness after throwing up and "just not feeling well". Assessment: 17:19 General: Appears in no apparent distress. Behavior is calm, cooperative. Pain: Denies hb pain. Neuro: Level of Consciousness is awake, alert, obeys commands, Oriented to person, place, time, situation, Reports dizziness. Cardiovascular: Patient's skin is warm and dry. Respiratory: Respiratory effort is even, unlabored, Respiratory pattern is regular, symmetrical. GI: Reports lower abdominal pain, nausea, vomiting. : No signs and/or symptoms were reported regarding the genitourinary system. EENT: No signs and/or symptoms were reported regarding the EENT system. Derm: Skin is pink, warm \\T\\ dry. Musculoskeletal: No signs and/or symptoms reported regarding the musculoskeletal system. 17:58 Reassessment: Dr Felton at the bedside. sv 18:23 Reassessment: Pt returned from CT. NAD. hb Vital Signs: 15:13 BP 110 / 63; Pulse 78; Resp 16; Temp 97.9(TE); Pulse Ox 96% on R/A; Weight 95.25 kg tw2 (R); Height 5 ft. 4 in. (162.56 cm); Pain 0/10; 18:00 BP 135 / 68; Pulse 73; Resp 15; Pulse Ox 99% ; hb 19:50 BP 126 / 71; Pulse 68; Resp 18; Pulse Ox 97% on R/A; ak2 15:13 Body Mass Index 36.05 (95.25 kg, 162.56 cm) tw2 Christina Coma Score: 18:04 Eye Response: spontaneous(4). Verbal Response: oriented(5). Motor Response: obeys liset commands(6). Total: 15. ED Course: 15:10 Patient arrived in ED. ds1 15:15 Triage completed. iw 15:18 Arm band placed on. tw2 16:40 Marina Ayoub RN is Primary Nurse. hb 16:59 Cyril Felton MD is Attending Physician. liset 17:10 Inserted saline lock: 20 gauge in right antecubital area, using aseptic technique. sv Blood collected. Flushed right antecubital with 5 ml normal saline. 17:14 EKG done, by ED staff, reviewed by Cyril Felton MD. sv 17:16 X-ray(s) taken. sv 17:19 Patient has correct armband on for positive identification. Placed in gown. Bed in low hb position. Call light in reach. Side rails up X 1. 17:44 XRAY Chest (1 view) In Process Unspecified. EDMS 18:20 CT Abd/Pelvis - IV Contrast Only In Process Unspecified. EDMS 18:24 Patient moved back from CT. sv 18:42 COVID swab sent to lab. sv 19:09 Report given to Keara CLARKE and Humphrey CLARKE. sv 19:51 IV discontinued. ak2 19:54 Primary Nurse role handed off by Marina Ayoub, RN mw2 Administered Medications: 17:13 Drug: NS 0.9% 1000 ml Route: IV; Rate: 1 bolus; Site: right antecubital; hb 17:13 Drug: Pepcid (famotidine) 20 mg Route: IVP; Site: right antecubital; hb 18:02 Follow up: Response: No adverse reaction hb 17:13 Drug: Zofran (Ondansetron) 4 mg Route: IVP; Site: right antecubital; hb 18:02 Follow up: Response: No adverse reaction hb 18:42 Drug: Requip (rOPINIRole) 4 mg Route: PO; sv 19:21 Drug: Rocephin (cefTRIAXone) 1 grams Route: IV; Rate: per protocol; Site: right ak2 antecubital; 19:21 Drug: Cipro (ciprofloxacin) 250 mg Route: PO; ak2 Outcome: 19:10 Discharge ordered by . liset 19:50 Discharged to home ambulatory. ak2 19:50 Condition: good 19:50 Discharge instructions given to patient. 20:10 Patient left the ED. ak2 Signatures: Dispatcher [employer] Xochitl Moraes, RN Cyril Almanzar MD MD cha Sanford, Demi ds1 Samina Sung RN RN Marina Ayoub RN RN hb Wise, Tara, RN RN tw2 [facility] Praneeth Vides ak2 Corrections: (The following items were deleted from the chart) 15:17 15:16 PMHx: Hypertension; 15:17 15:16 PSHx: Cholecystectomy; 15:17 15:16 PSHx: None; 18:26 18:23 Reassessment: Pt returned from CT. NAD. VSS. hb hb
--- NOTE | 2020-11-26 19:10 | EDPHYS ---
Physician Documentation [facility] Name: Oralia Garcia Age: 75 yrs Sex: Female : 1945 Arrival Date: 11/26/2020 Time: 15:10 Bed 3 Private MD: CHUY Physician Cyril Felton HPI: 11/26 18:02 This 75 yrs old Female presents to ER via EMS with complaints of Weakness, liset Vomiting. 18:02 The patient complains of pain to the top of head, left frontal area, left side of the liset back of head, left occipital area, left base of the skull, right frontal area, right side of the back of head, right occipital area and right base of the skull. The patient describes the headache as aching, constant. Onset: The symptoms/episode began/occurred today. The patient presents with abdominal pain in the upper abdomen, in the lower abdomen. Onset: The symptoms/episode began/occurred today. The patient presents to the emergency department with nausea, vomiting, diarrhea, abdominal pain, of the right upper quadrant, left upper quadrant, right lower quadrant and left lower quadrant, described as vague,\E\ and does not radiate. Onset: The symptoms/episode began/occurred today. Possible causes: unknown. Associated signs and symptoms: The patient has no apparent associated signs or symptoms. Severity of symptoms: At its worst the pain was mild, in the emergency department the pain is unchanged. Historical: - Allergies: 15:16 Codeine; tw2 15:16 Morphine; tw2 - Home Meds: 15:16 citalopram 10 mg tab 1 tab once daily [Active]; ropinirole oral [Active]; Celebrex Oral tw2 [Active]; - PMHx: 15:16 Arthritis; tw2 - PSHx: 15:16 Cholecystectomy; hysterectomy; tw2 - Immunization history:: Adult Immunizations Client reports having NOT received the Covid vaccine. - Social history:: Smoking status: Patient denies any tobacco usage or history of. - Family history:: not pertinent. ROS: 18:02 Constitutional: Negative for fever, chills, and weight loss, Eyes: Negative for injury, liset pain, redness, and discharge, ENT: Negative for injury, pain, and discharge, Neck: Negative for injury, pain, and swelling, Cardiovascular: Negative for chest pain, palpitations, and edema, Respiratory: Negative for shortness of breath, cough, wheezing, and pleuritic chest pain, Back: Negative for injury and pain, : Negative for injury, bleeding, discharge, and swelling, MS/Extremity: Negative for injury and deformity, Skin: Negative for injury, rash, and discoloration, Neuro: Negative for headache, weakness, numbness, tingling, and seizure, Psych: Negative for depression, anxiety, suicide ideation, homicidal ideation, and hallucinations, Allergy/Immunology: Negative for hives, rash, and allergies, Endocrine: Negative for neck swelling, polydipsia, polyuria, polyphagia, and marked weight changes, Hematologic/Lymphatic: Negative for swollen nodes, abnormal bleeding, and unusual bruising. 18:02 Abdomen/GI: Positive for abdominal pain, nausea and vomiting, diarrhea, of the right upper quadrant, left upper quadrant and abdomen diffusely. Exam: 18:02 Constitutional: This is a well developed, well nourished patient who is awake, alert, liset and in no acute distress. Head/Face: Normocephalic, atraumatic. Eyes: Pupils equal round and reactive to light, extra-ocular motions intact. Lids and lashes normal. Conjunctiva and sclera are non-icteric and not injected. Cornea within normal limits. Periorbital areas with no swelling, redness, or edema. ENT: Nares patent. No nasal discharge, no septal abnormalities noted. Tympanic membranes are normal and external auditory canals are clear. Oropharynx with no redness, swelling, or masses, exudates, or evidence of obstruction, uvula midline. Mucous membranes moist. Neck: Trachea midline, no thyromegaly or masses palpated, and no cervical lymphadenopathy. Supple, full range of motion without nuchal rigidity, or vertebral point tenderness. No Meningismus. Chest/axilla: Normal chest wall appearance and motion. Nontender with no deformity. No lesions are appreciated. Cardiovascular: Regular rate and rhythm with a normal S1 and S2. No gallops, murmurs, or rubs. Normal PMI, no JVD. No pulse deficits. Respiratory: Lungs have equal breath sounds bilaterally, clear to auscultation and percussion. No rales, rhonchi or wheezes noted. No increased work of breathing, no retractions or nasal flaring. Back: No spinal tenderness. No costovertebral tenderness. Full range of motion. Female : Normal external genitalia. Skin: Warm, dry with normal turgor. Normal color with no rashes, no lesions, and no evidence of cellulitis. MS/ Extremity: Pulses equal, no cyanosis. Neurovascular intact. Full, normal range of motion. Neuro: Awake and alert, GCS 15, oriented to person, place, time, and situation. Cranial nerves II-XII grossly intact. Motor strength 5/5 in all extremities. Sensory grossly intact. Cerebellar exam normal. Normal gait. Psych: Awake, alert, with orientation to person, place and time. Behavior, mood, and affect are within normal limits. 18:02 Abdomen/GI: Inspection: abdomen appears normal, Bowel sounds: normal, Palpation: mild abdominal tenderness, in all quadrants, Liver: no appreciated palpable abnormalities, Hernia: not appreciated. 18:11 ECG was reviewed by the Attending Physician. [facility] Vital Signs: 15:13 BP 110 / 63; Pulse 78; Resp 16; Temp 97.9(TE); Pulse Ox 96% on R/A; Weight 95.25 kg tw2 (R); Height 5 ft. 4 in. (162.56 cm); Pain 0/10; 18:00 BP 135 / 68; Pulse 73; Resp 15; Pulse Ox 99% ; hb 19:50 BP 126 / 71; Pulse 68; Resp 18; Pulse Ox 97% on R/A; ak2 15:13 Body Mass Index 36.05 (95.25 kg, 162.56 cm) tw2 Christina Coma Score: 18:04 Eye Response: spontaneous(4). Verbal Response: oriented(5). Motor Response: obeys [facility] commands(6). Total: 15. MDM: 17:06 Patient medically screened. [facility] 18:04 Differential diagnosis: Nonspecific abd pain, gastritis, cholecystitis, pancreatitis, liset diverticulitis, viral gastroenteritis, gastroenteritis, hyponatremia, migraine, otitis, subarachnoid bleed, myocardia ischemia or infarction, non-specific abd pain, Peptic Ulcer Disease, urinary tract infection. Data reviewed: vital signs, nurses notes, lab test result(s), EKG, radiologic studies, CT scan, plain films. Data interpreted: import specialist: rate is 78 beats/min, rhythm is regular, Pulse oximetry: on room air is 96 %. Test interpretation: by ED physician or midlevel provider: ECG, plain radiologic studies. Counseling: I had a detailed discussion with the patient and/or guardian regarding: the historical points, exam findings, and any diagnostic results supporting the discharge/admit diagnosis, the presence of at least one elevated blood pressure reading (>120/80) during this emergency department visit, lab results, radiology results, the need for outpatient follow up, for definitive care, 11/26 17:00 Order name: Basic Metabolic Panel; Complete Time: 18:00 [facility] 11/26 17:00 Order name: CBC with Diff; Complete Time: 18:00 [facility] 11/26 17:00 Order name: LFT's; Complete Time: 18:00 [facility] 11/26 17:00 Order name: Magnesium; Complete Time: 18:00 [facility] 11/26 17:00 Order name: NT PRO-BNP; Complete Time: 18:00 [facility] 11/26 17:00 Order name: PT-INR; Complete Time: 18:00 [facility] 11/26 17:00 Order name: Troponin (emerg Dept Use Only); Complete Time: 18:00 [facility] 11/26 17:00 Order name: XRAY Chest (1 view); Complete Time: 19:02 [facility] 11/26 17:00 Order name: Lipase; Complete Time: 18:00 [facility] 11/26 17:00 Order name: CT Abd/Pelvis - IV Contrast Only; Complete Time: 19:02 [facility] 11/26 17:00 Order name: Urine Culture [facility] 11/26 18:46 Order name: Urine Dipstick-Ancillary; Complete Time: 19:02 [facility] 11/26 19:36 Order name: SARS-COV-2 RT PCR; Complete Time: 20:05 [facility] 11/26 17:00 Order name: EKG; Complete Time: 17:01 [facility] 11/26 17:00 Order name: Cardiac monitoring; Complete Time: 17:13 [facility] 11/26 17:00 Order name: EKG - Nurse/Tech; Complete Time: 17:13 [facility] 11/26 17:00 Order name: IV Saline Lock; Complete Time: 17:13 [facility] 11/26 17:00 Order name: Labs collected and sent; Complete Time: 17:13 [facility] 11/26 17:00 Order name: O2 Per Protocol; Complete Time: 17:13 [facility] 11/26 17:00 Order name: O2 Sat Monitoring; Complete Time: 17: [facility] 11/26 17:00 Order name: Urine Dipstick-Ancillary (obtain specimen); Complete Time: 18:42 [facility] 11/26 19:09 Order name: Orthostatics liset EC:11 Rate is 72 beats/min. Rhythm is regular. QRS [place] is Normal. PA interval is normal. QRS liset interval is normal. QT interval is normal. No Q waves. T waves are Normal. No ST changes noted. Clinical impression: Normal ECG and No evidence of ischemia. Interpreted by me. Reviewed by me. Administered Medications: 17:13 Drug: NS 0.9% 1000 ml Route: IV; Rate: 1 bolus; Site: right antecubital; hb 17:13 Drug: Pepcid (famotidine) 20 mg Route: IVP; Site: right antecubital; hb 18:02 Follow up: Response: No adverse reaction hb 17:13 Drug: Zofran (Ondansetron) 4 mg Route: IVP; Site: right antecubital; hb 18:02 Follow up: Response: No adverse reaction hb 18:42 Drug: Requip (rOPINIRole) 4 mg Route: PO; sv 19:21 Drug: Rocephin (cefTRIAXone) 1 grams Route: IV; Rate: per protocol; Site: right ak2 antecubital; 19:21 Drug: Cipro (ciprofloxacin) 250 mg Route: PO; ak2 Disposition Summary: 11/26/20 19:10 Discharge Ordered Location: Home liset Problem: new liset Symptoms: have improved liset Condition: Stable liset Diagnosis - Vomiting liset - Diarrhea, unspecified liset - Headache liset - UTI/ Urinary tract infection, site not specified liset Followup: liset - With: Private Physician - When: 2 - 3 days - Reason: Recheck today's complaints, Continuance of care, Re-evaluation by your physician Discharge Instructions: - Discharge Summary Sheet liset - Abdominal Pain, Adult liset - Food Choices to Help Relieve Diarrhea, Adult liset - Diarrhea, Adult liset - General Headache Without Cause liset - Urinary Tract Infection, Adult liset - Diarrhea, Adult, Makp-cg-Tcet liset - General Headache Without Cause, Fvuc-fl-Hkrm liset - Abdominal Pain, Adult, Sdsn-iw-Xpwn liset - Urinary Tract Infection, Adult, Uypm-li-Mrco liset Forms: - Medication Reconciliation Form liset - Thank You Letter liset - Antibiotic Education liset - Prescription Opioid Use liset Prescriptions: - Pepcid 20 mg Oral Tablet - take 1 tablet by ORAL route every 12 hours for 10 days; 20 tablet; Refills: 0, [facility] Product Selection Permitted - Zofran 4 mg Oral Tablet - take 1 tablet by ORAL route every 12 hours As needed; 20 tablet; Refills: 0, [facility] Product Selection Permitted - dicyclomine 20 mg Oral Tablet - take 1 tablet by ORAL route 4 times per day; 20 tablet; Refills: 0, Product [facility] Selection Permitted - Cipro 250 mg Oral Tablet - take 1 tablet by ORAL route every 12 hours; 14 tablet; Refills: 0, Product [facility] Selection Permitted Signatures: Dispatcher [employer] EDXochitl Sifuentes RN Cyril Almanzar MD MD cha Baxter, Heather RN Arlin Brown RN RN [facility] Praneeth Vides id2 Corrections: (The following items were deleted from the chart) 15:17 15:16 PMHx: Hypertension; 15:17 15:16 PSHx: Cholecystectomy; 15:17 15:16 PSHx: None; 18:38 18:02 CORONAVIRUS+MR.LAB.BRZ ordered. EDIA EDMS
[2020-11-26] MEDS ORDERED: CIPROFLOXACIN HCL 500 MG TAB ONE (19:41)
[2020-11-26] MEDS ORDERED: CEFTRIAXONE/SWI 1gm 1 GM/10 ML SYR ONE (19:42)
[2020-11-26 20:22] VITALS: TEMP 97.9
[2020-11-26 20:26] VITALS: BP 126/71; O2SAT 97
== END 2020-11-26 20:10 | disposition home or self-care (01) ==
LOC: ER 15:02
DX: R51.9 Headache, unspecified (principal); N39.0 Urinary tract infection, site not specified; Z20.822 Contact with and (suspected) exposure to COVID-19; R19.7 Diarrhea, unspecified; R11.2 Nausea with vomiting, unspecified; M19.90 Unspecified osteoarthritis, unspecified site
CPT/HCPCS: 93005; 87088; 85025; 87086; 80048; 36415; 83735; 85610; 80076; 87077; 87186; 81003; 84484; 83690; 83880; 74177; 71045; 96375; 96374; 99284; U0003; Q9967; J0696; J7030; J2405

== ENCOUNTER 2021-03-25 03:06 | Emergency (ER) | payer OTHER ==
--- OUTSIDE RECORDS SUMMARY | 2021-03-25 03:12 | XMS REPORT | Continuity of Care Document ---
:1945 Author Organization [facility] t Address [address] [place] [address] [place] [id number] Care Team Providers Name Role Phone DAVID_S Attending Clinician Unavailable [place]enix_S Attending Clinician Unavailable DAVID_S Admitting Clinician Unavailable [place]_S Admitting Clinician Unavailable Payers Payer Name Policy Type Policy Number Effective Date Expiration Date S [facility] [id number] 2020 (MEDICARE 00:00:00 REPLACEMENT HMO) Problems This patient has no known problems. Allergies, Adverse Reactions, Alerts Allergy Allergy Status Severity Reaction(s) Onset Inactive Treating Comm ents Source Name Type Date Date Clinician codeine Adverse Active rash [facility] MORPHINE Adverse Active rash [facility] Medications Ordered Filled Start Stop Current Ordering Indication Dosage Frequency Signature Comments Components Source Medication Medication Date Date Medication? Clinician (SIG) Name Name Zolpidem Zolpidem 0 Yes Jaziel [address] [facility] Tartrate Tartrate 7-02 [facility] at bedtime [facility] Trazodone Trazodone Yes Jaziel [address] [facility] HCl HCl [facility] at bedtime [facility] Ondansetron Ondansetron Yes Jaziel not [facility] HCl HCl [facility] defined [facility] Mupirocin Mupirocin Yes Jaziel not [facility] Estrace Estrace Yes Jaziel as [facility] directed [facility] Citalopram Citalopram Yes Jaziel [address] [facility] Hydrobromid Hydrobromid Felder [facility] Lidocaine Lidocaine Yes Jaziel not [facility] defined [facility] Omeprazole Omeprazole Yes Jaziel [address] [facility] Felder [facility] Requip Requip Yes Jaziel [address] [facility] Felder to 3 hours [facility] before [facility] bedtime l [facility] Hydrocodone Hydrocodone Yes Jaziel (Schedule [facility] -Acetaminop -Acetaminop Felder II Drug) [facility] hen hen TK 1 T PO [facility] Q 12 H l [facility] Ropinirole Ropinirole Yes Jaziel TAKE [address] [facility] HCl HCl Felder TABLET BY [facility] MOUTH 1 TO [facility] 3 HOUR l BEFORE AT [facility]pat[facility] BEDTIME. ent Clinics Celecoxib Celecoxib Yes Jaziel [address] [facility] Felder with food [facility] Methocarbam Methocarbam Yes Jaziel [address] [facility] ol ol Felder [facility] Immunizations Ordered Filled Immunization Date Status Comments Sourc e Immunization Name Name Manjeet QuinonezAD 2018-05-[address] [facility] Procedures This patient has no known procedures. Encounters Start End Encounter Admission Attending Care Care Encounter Source Date/Time Date/Time Type Type Clinicians Facility Department ID 2021-03-15 Outpatient CURRY_S [facility] [id number] [facility] 07:38:40 [id number] 2021-03-14 Outpatient Kautz_S [facility] [id number] [facility] 11:31:58 [id number] [facility] 2021-03-13 Outpatient [facility] [id number] [facility] 20:26:20 [id number] [facility] 2021-03-21 2021-03-21 [facility] [id number] 2021-03-21 2021-03-21 [facility] [id number] [facility] 2021-03-18 2021-03-18 ambulatory [facility] [id number] [facility] 2021-02-16 2021-02-16 Outpatient [facility] [id number] [facility] 2021-02-02 2021-02-02 Outpatient [facility] [id number] [facility] 2021-01-20 2021-01-20 Outpatient [facility] [id number] [facility] 2021-01-12 2021-01-12 Outpatient [facility] [id number] [facility] 2021-01-12 2021-01-12 Outpatient [facility] [id number] [facility] 2020-12-29 2020-12-29 Outpatient [facility] [id number] [facility] 2020-12-29 2020-12-29 Outpatient [facility] [id number] [facility] 2020-12-22 2020-12-22 Outpatient [facility] [id number] [facility] 2020-12-17 2020-12-17 Outpatient [facility] [id number] [facility] 2020-12-08 2020-12-08 Outpatient [facility] [id number] [facility] 2020-11-18 2020-11-18 Outpatient [facility] [id number] [facility] 2020-11-11 2020-11-11 Outpatient [facility] [id number] [facility] 2020-11-10 2020-11-10 Outpatient [facility] [id number] [facility] 2020-11-04 2020-11-04 Outpatient [facility] [id number] [facility] 2020-10-15 2020-10-15 Outpatient [facility] [id number] [facility] 2020-09-16 2020-09-16 Outpatient [facility] [id number] [facility] 2020-09-07 2020-09-07 Outpatient [facility] [id number] [facility] 2020-09-02 2020-09-02 Outpatient [facility] [id number] [facility] 2020-08-24 2020-08-24 Outpatient [facility] [id number] [facility] 2020-08-05 2020-08-05 Outpatient [facility] [id number] [facility] 2020-07-22 2020-07-22 Outpatient [facility] [id number] [facility] 2020-06-09 2020-06-09 Outpatient [facility] [id number] [facility] 2020-06-02 2020-06-02 Outpatient [facility] [id number] [facility] 2020-05-13 2020-05-13 Outpatient [facility] [id number] [facility] 2020-04-28 2020-04-28 Outpatient [facility] [id number] [facility] 2020-04-13 2020-04-13 Outpatient [facility] [id number] [facility] 2020-03-30 2020-03-30 Outpatient [facility] [id number] [facility] 2020-03-22 2020-03-22 Outpatient [facility] [id number] [facility] 2020-03-16 2020-03-16 Outpatient [facility] [id number] [facility] 2020-03-02 2020-03-02 Outpatient [facility] [id number] [facility] 2020-02-20 2020-02-20 Outpatient [facility] [id number] [facility] 2020-01-26 2020-01-26 Outpatient [facility] [id number] [facility] 2020-01-15 2020-01-15 [facility] [id number] [facility] 14:00:00 14:00:00 [place] [place] [employer] [place] [facility] 2019-12-29 2019-12-29 [facility] [id number] [facility] 15:30:00 15:30:00 [place] [employer] [place] [facility] Medicine l Medicine Outpati ent Clinics 2019-12-15 2019-12-15 [facility] [id number] [facility] 15:30:00 15:30:00 [place] [employer] [place] [facility] Medicine l Medicine Outpati ent Clinics 2019-12-09 2019-12-09 [facility] [id number] [facility] 09[facility]51:00 09:51:00 [place] [employer] [place] [facility] Medicine l Medicine Outpati ent Clinics 2019-12-01 2019-12-01 [facility] [id number] [facility] 16[facility]45:00 16:45:00 t Inverted [employer] s [place] [facility] Medicine l Medicine Outpati ent Clinics 2019-11-17 2019-11-17 [facility] [id number] [facility] 10:15:00 10:15:00 t Inverted [employer] s [place] [facility] Medicine l Medicine Outpati ent Clinics 2019-10-30 2019-10-30 [facility] [id number] [facility] 16:00:00 16:00:00 t Attune RTD [facility] Medicine l Medicine Outpati ent Clinics 2019-10-30 2019-10-30 [facility] [id number] [facility] 15:30:00 15:30:00 t [employer] [place] [facility] Medicine l Medicine Outpati ent Clinics 2019-10-16 2019-10-16 [facility] [id number] [facility] 13:30:00 13:30:00 t [employer] [place] [facility] Medicine l Medicine Outpati ent Clinics 2019-08-20 2019-08-20 [facility] [id number] 15:08:00 15:08:00 t [employer] [place] [facility] Medicine l Medicine Outpati ent Clinics 2019 2019 [facility] [id number] 10:45:00 10:45:00 t Inverted [employer] s [place] [facility] Outpati ent Clinics 2019-07-08 2019-07-08 [facility] [id number] [facility] 13:30:00 13:30:00 t [place] [employer] [facility] Outpati ent Clinics 2019-07-02 2019-07-02 [facility] [id number] 11:14:00 11:14:00 t [place] [employer] [place] [facility] Outpati ent Clinics 2019-06-18 2019-06-18 [facility] [id number] 06:25:00 06:25:00 t Attune RTD [facility] Outpati ent Clinics 2019-06-17 2019-06-17 [facility] [id number] 14:15:00 14:15:00 t Attune RTD [facility] 2019-05-15 2019-05-15 [facility] [id number] [address] 08:25:00 08:25:00 t [facility] ent Clinics 2019-05-13 2019-05-13 [facility] [id number] [facility] 14:39:00 14:39:00 t [facility] ent Clinics 2019-05-12 2019-05-12 [facility] [id number] [facility] 14:11:00 14:11:00 t [facility] [place] ent Clinics 2019-05-07 2019-05-07 [facility] [id number] [facility] 13:00:00 13:00:00 t Attune RTD [facility] Outpati ent Clinics 2019-05-05 2019-05-05 [facility] [id number] [facility] 10:15:00 10:15:00 t Attune RTD [facility] 2019-05-01 2019-05-01 [facility] [id number] [facility] 08[facility]30:00 08:30:00 [place] [facility] ent Clinics 2019-04-15 2019-04-15 [facility] [id number] 15:30:00 15:30:00 t [facility] ent Clinics 2019-04-11 2019-04-11 [facility] [id number] [facility] 11:41:00 11:41:00 t [facility] ent [facility] 2019-04-02 2019-04-02 [facility] [id number] 11:00:00 11:00:00 t [facility] ent Clinics 2019-03-05 2019-03-05 [facility] [id number] [facility] 13:00:00 13:00:00 t [facility] ent [facility] 2019-03-05 2019-03-05 [facility] [id number] 11:24:00 11:24:00 [facility] 2019-02-21 2019-02-21 [facility] [id number] [facility] 09:01:00 09:01:00 t [facility] ent Clinics 2019-02-12 2019-02-12 [facility] [id number] [facility] 16:21:00 16:21:00 t [facility] ent [facility] 2019-02-11 2019-02-11 [facility] [id number] [facility] 14:30:00 14:30:00 t [facility] ent Clinics 2019-01-30 2019-01-30 [facility] [id number] 13:10:00 13:10:00 t [facility] ent Clinics 2019-01-29 2019-01-29 [facility] [id number] 09:15:00 09:15:00 t [facility] ent [facility] 2018-12-23 2018-12-23 [facility] [id number] 14:30:00 14:30:00 t [facility] ent Clinics 2018-12-17 2018-12-17 [facility] [id number] [facility] 13:15:00 13:15:00 t [facility] ent [facility] 2018-10-03 2018-10-03 [facility] [id number] [facility] 13:30:00 13:30:00 t [facility] ent Clinics 2018-09-12 2018-09-12 [facility] [id number] [facility] 12:09:00 12:09:00 t [facility] [place] ent Clinics 2018-09-11 2018-09-11 [facility] [id number] [facility] 10:28:00 10:28:00 t [facility] ent Clinics 2018-09-05 2018-09-05 [facility] [id number] 14:45:00 14:45:00 t [facility] ent [facility] 2018-08-26 2018-08-26 [facility] [id number] [facility] 13:00:00 13:00:00 t [facility] ent [facility] 2018-07-29 2018-07-29 [facility] [id number] 16:45:00 16:45:00 [place] [address] [place] [address] [address] Luke s - Drive [facility] Medicine l Medicine Outpati ent Clinics 2018-07-29 2018-07-29 [facility] [id number] 15:46:00 15:46:00 t [place] [address] [place] [address] Luke s - Drive [facility] Medicine l Medicine Outpati ent Clinics 2018-07-10 2018-07-10 [facility] [id number] [facility] 15:43:00 15:43:00 t [place] [address] [place] [address] Luke s - Drive [facility] Medicine l Medicine Outpati ent Clinics 2018-06-25 2018-06-25 [facility] [id number] 10:30:00 10:30:00 t [place] [address] [place] [place] [address] Luke s - Drive [facility] Medicine l Medicine Outpati ent Clinics 2018-05-30 2018-05-30 [facility] [id number] [facility] 16:16:00 16:16:00 t [place] [address] [place] [address] Luke s - Drive [facility] Medicine l Medicine Outpati ent Clinics 2018-05-27 2018-05-27 [facility] [id number] 13:00:00 13:00:00 t [place] [address] [place] [place] [address] Luke s - Drive [facility] Medicine l Medicine Outpati ent Clinics 2018-05-20 2018-05-20 [facility] [id number] [facility] 12:05:00 12:05:00 t [place] [address] [place] [address] Luke s - Drive [facility] Medicine l Medicine Outpati ent Clinics 2017-11-20 2017-11-20 [facility] [id number] 10:36:00 10:36:00 t [place] [address] [place] [address] Luke s - Drive [facility] Medicine l Medicine Outpati ent Clinics 2017-10-02 2017-10-02 [facility] [id number] 13:15:00 13:15:00 t [place] [address] [address] Luke s - Drive [facility] Medicine l Medicine Outpati ent Clinics 2017-09-13 2017-09-13 [facility] [id number] 10:07:00 10:07:00 t [place] [address] [place] [address] Luke s - Drive [facility] Medicine l Medicine Outpati ent Clinics 2017-09-12 2017-09-12 [facility] [id number] 10:16:00 10:16:00 t Attune RTD [facility] Medicine Outpati ent Clinics 2017-09-11 2017-09-11 [facility] [id number] 13:15:00 13:15:00 t Attune RTD [facility] Medicine Outpati ent Clinics 2017-08-24 2017-08-24 [facility] [id number] 08:15:00 08:15:00 t Attune RTD [facility] Medicine Outpati ent Clinics 2017-08-22 2017-08-22 [facility] [id number] [facility] 13:00:00 13:00:00 t Attune RTD [facility] Medicine Outpati ent Clinics Results This patient has no known results.
--- NOTE | 2021-03-25 04:06 | ER ---
Nurse's Notes [facility] Name: Oralia Garcia Age: 75 yrs Sex: Female : 1945 Arrival Date: 03/25/2021 Time: 03:16 Bed 18 Private MD: Diagnosis: Low back pain-chronic Presentation: 03/25 03:30 Chief complaint: Patient states: c/o left lower back \T\ left hip pain 10/10 on pain cc4 scale that reportedly radiates down left lateral thigh into left lateral calf SINCE 209903/24/2021. Coronavirus screen: Vaccine status: Patient reports being unvaccinated. Client denies travel out of the [place] in the last 14 days. At this time, the client does not indicate any symptoms associated with coronavirus-19. Ebola Screen: Patient negative for fever greater than or equal to 101.5 degrees Fahrenheit, and additional compatible Ebola Virus Disease symptoms No symptoms or risks identified at this time. Initial Sepsis Screen: Does the patient meet any 2 criteria? No. Patient's initial sepsis screen is negative. Risk Assessment: Do you want to hurt yourself or someone else? Patient reports no desire to harm self or others. Onset of symptoms was March 24, 2021 at 21:00. 03:30 Method Of Arrival: Ambulatory cc4 03:30 Acuity: LIGIA 5 cc4 03:30 Initial Sepsis Screen: Does the patient have a suspected source of infection? No. cc4 Patient's initial sepsis screen is negative. Triage Assessment: 03:30 General: Appears uncomfortable, Behavior is cooperative, anxious. Pain: Complains of cc4 pain in lumbar area and left leg \T\ left hip Pain radiates to lumbar area into lefthip \T\ left leg Pain currently is 10 out of 10 on a pain scale. at worst was 10 out of 10 on a pain scale. level that patient reports is acceptable is 0 out of 10 on a pain scale. Quality of pain is described as burning, throbbing, Pain began suddenly. Historical: - Allergies: 03:30 Darvon; cc4 03:30 Codeine; cc4 03:30 Morphine; cc4 - Home Meds: 04:15 ropinirole Oral once daily for restless leg syndrome [Active]; citalopram 10 mg tab 1 cc4 tab once daily for anxiety with depression [Active]; Celebrex Oral for siatica [Active]; tramadol 50 mg Oral tab 1 tab every 4-6 hours for pain [Active]; - PMHx: 03:30 Siatica; Restless leg; cc4 04:15 anxiety; Depression; cc4 - Immunization history:: Adult Immunizations up to date, Flu vaccine is up to date. - Social history:: Smoking status: Patient/guardian denies using alcohol, street drugs, IV drugs, over the counter diet medications, tobacco products. Screenin:30 Abuse screen: Denies threats or abuse. Nutritional screening: No deficits noted. cc4 Tuberculosis screening: No symptoms or risk factors identified. Fall Risk None identified. Assessment: 03:30 General: Appears uncomfortable, Behavior is cooperative, anxious. Pain: Complains of cc4 pain in lumbar area and left leg and lef hip Pain radiates to lumbar area into left hip \T\ left calf Pain currently is 10 out of 10 on a pain scale. Quality of pain is described as burning, throbbing, Pain began Is continuous, Alleviated by nothing. Neuro: No deficits noted. Level of Consciousness is awake, alert, obeys commands, Oriented to person, place, time, situation. Respiratory: No deficits noted. Airway is patent Respiratory effort is even, unlabored, Respiratory pattern is regular, symmetrical. GI: No signs and/or symptoms were reported involving the gastrointestinal system. : No signs and/or symptoms were reported regarding the genitourinary system. EENT: No signs and/or symptoms were reported regarding the EENT system. Derm: No deficits noted. Skin is intact. Musculoskeletal: Capillary refill < 3 seconds, Range of motion: intact in all extremities. 03:35 Reassessment: Dr. Garcia in to see. cc4 04:13 Reassessment: medicated as ordered;. cc4 Vital Signs: 03:30 BP 135 / 65; Pulse 69; Resp 20 S; Temp 97.7(O); Pulse Ox 96% on R/A; cc4 03:30 Weight 97.52 kg; Height 5 ft. 4 in. (162.56 cm); cc4 03:30 Body Mass Index 36.90 (97.52 kg, 162.56 cm) cc4 ED Course: 03:16 Patient arrived in ED. wm 03:19 Rock Garcia MD is Attending Physician. [facility] 03:30 Arm band placed on. cc4 03:30 Bed in low position. Call light in reach. cc4 03:30 No provider procedures requiring assistance completed. cc4 03:41 Felicitas Ramirez, RN is Primary Nurse. cc4 03:51 Triage completed. cc4 04:15 Patient did not have IV access during this emergency room visit. cc4 Administered Medications: 04:13 Drug: Acetaminophen 1000 mg Route: PO; cc4 04:15 Follow up: Response: No adverse reaction cc4 Outcome: 04:06 Discharge ordered by . [facility] 04:15 Discharged to home ambulatory. cc4 04:15 Condition: stable 04:15 Discharge instructions given to patient, Instructed on discharge instructions, follow up and referral plans. medication usage, Demonstrated understanding of instructions, follow-up care. 04:48 Patient left the ED. cc4 Signatures: Rock Garcia MD MD [facility] Krista Oliveros Felicitas Ramirez, TRICIA RN cc4 Corrections: (The following items were deleted from the chart) 03:56 03:30 PMHx: Arthritis; cc4 cc4 03:56 03:30 PSHx: Cholecystectomy; cc4 cc4 03:56 03:30 PSHx: hysterectomy; cc4 cc4 04:19 03:30 Home Meds: citalopram 10 mg tab 1 tab once daily [Inactive]; cc4 cc4 04:19 03:30 Home Meds: ropinirole Oral [Inactive]; cc4 cc4 04:19 03:30 Home Meds: Celebrex Oral [Inactive]; 4 cc4
--- NOTE | 2021-03-25 04:06 | EDPHYS ---
Physician Documentation [facility] Name: Oralia Garcia Age: 75 yrs Sex: Female : 1945 Arrival Date: 03/25/2021 Time: 03:16 Bed 18 Private MD: ED Physician Rock Garcia HPI: 03/25 03:40 This 75 yrs old Female presents to ER via Unassigned with complaints of SCIATIC PAIN. mh7 03:40 The patient presents with pain that is chronic, with no known mechanism of injury. The mh7 symptoms are located in the low back. 03:41 Onset: The symptoms/episode began/occurred 2 year(s) ago, and became worse 2 day(s) mh7 ago. The pain radiates to the left leg. Associated signs and symptoms: Pertinent negatives: abdominal pain, chest pain, constipation, dysuria, fever, headache, hematuria, incontinence, nausea, numbness, tingling, urinary retention, vomiting, weakness. The problem was sustained when bending over. Modifying factors: The patient symptoms are alleviated by remaining still, the patient symptoms are aggravated by bending, lifting, movement. Severity of symptoms: At their worst the symptoms were moderate, 2 day(s) ago, in the emergency department the symptoms have improved, moderately. The patient has experienced similar episodes in the past, chronically. Patient reports a history of sciatica for the last 2 years. Symptoms have been more frequent over the last several months. She states increased also in the last couple days due to a lot of bending standing for prolonged periods of time. She has an upcoming appointment to see a pain specialist to receive spinal injections. She came to the ED tonight in hopes of receiving those injections here. She denies any fever, chest pain, abdominal pain, nausea, vomiting, numbness/tingling, dizziness, bladder/bowel retention or incontinence, or weakness. She also request medication to help her sleep.. 03:41 She reports that she took tramadol last night. She also takes Celebrex daily. She has mh7 muscle relaxers at home but has not taken them.. Historical: - Allergies: 03:30 Darvon; cc4 03:30 Codeine; cc4 03:30 Morphine; cc4 - Home Meds: 04:15 ropinirole Oral once daily for restless leg syndrome [Active]; citalopram 10 mg tab 1 cc4 tab once daily for anxiety with depression [Active]; Celebrex Oral for siatica [Active]; tramadol 50 mg Oral tab 1 tab every 4-6 hours for pain [Active]; - PMHx: 03:30 Siatica; Restless leg; cc4 04:15 anxiety; Depression; cc4 - Immunization history:: Adult Immunizations up to date, Flu vaccine is up to date. - Social history:: Smoking status: Patient/guardian denies using alcohol, street drugs, IV drugs, over the counter diet medications, tobacco products. ROS: 03:41 Constitutional: Negative for fever, chills, and weight loss, Eyes: Negative for injury, mh7 pain, redness, and discharge, ENT: Negative for injury, pain, and discharge, Neck: Negative for injury, pain, and swelling, Cardiovascular: Negative for chest pain, palpitations, and edema, Respiratory: Negative for shortness of breath, cough, wheezing, and pleuritic chest pain, Abdomen/GI: Negative for abdominal pain, nausea, vomiting, diarrhea, and constipation, : Negative for injury, bleeding, discharge, and swelling, Skin: Negative for injury, rash, and discoloration, Neuro: Negative for headache, weakness, numbness, tingling, and seizure, Psych: Negative for depression, anxiety, suicide ideation, homicidal ideation, and hallucinations, Allergy/Immunology: Negative for hives, rash, and allergies, Endocrine: Negative for neck swelling, polydipsia, polyuria, polyphagia, and marked weight changes, Hematologic/Lymphatic: Negative for swollen nodes, abnormal bleeding, and unusual bruising. Exam: 03:41 Constitutional: This is a well developed, well nourished patient who is awake, alert, mh7 and in no acute distress. Head/Face: Normocephalic, atraumatic. Eyes: Pupils equal round and reactive to light, extra-ocular motions intact. Lids and lashes normal. Conjunctiva and sclera are non-icteric and not injected. Cornea within normal limits. Periorbital areas with no swelling, redness, or edema. Neck: Trachea midline, no thyromegaly or masses palpated, and no cervical lymphadenopathy. Supple, full range of motion without nuchal rigidity, or vertebral point tenderness. No Meningismus. Chest/axilla: Normal chest wall appearance and motion. Nontender with no deformity. No lesions are appreciated. Cardiovascular: Regular rate and rhythm with a normal S1 and S2. No gallops, murmurs, or rubs. Normal PMI, no JVD. No pulse deficits. Respiratory: Lungs have equal breath sounds bilaterally, clear to auscultation and percussion. No rales, rhonchi or wheezes noted. No increased work of breathing, no retractions or nasal flaring. Abdomen/GI: Soft, non-tender, with normal bowel sounds. No distension or tympany. No guarding or rebound. No evidence of tenderness throughout. 03:41 Neuro: Awake and alert, GCS 15, oriented to person, place, time, and situation. Cranial nerves II-XII grossly intact. Motor strength 5/5 in all extremities. Sensory grossly intact. Cerebellar exam normal. Normal gait. Psych: Awake, alert, with orientation to person, place and time. Behavior, mood, and affect are within normal limits. 03:41 Back: pain, that is mild, of the lumbar area, ROM is normal, normal spinal alignment noted, CVA tenderness, is absent, vertebral tenderness, is not appreciated, muscle spasm, is appreciated in the lumbar area, Straight leg raises: of both lower extremities does not illicit pain. Vital Signs: 03:30 BP 135 / 65; Pulse 69; Resp 20 S; Temp 97.7(O); Pulse Ox 96% on R/A; cc4 03:30 Weight 97.52 kg; Height 5 ft. 4 in. (162.56 cm); cc4 03:30 Body Mass Index 36.90 (97.52 kg, 162.56 cm) cc4 MDM: 03:41 Differential diagnosis: chronic back pain, Osteoarthritis Osteoporosis sprain, Strain. [facility] Data reviewed: vital signs, nurses notes, old medical records. 04:05 Data interpreted: Pulse oximetry: on room air is 96 %. Interpretation: normal. [facility] Counseling: I had a detailed discussion with the patient and/or guardian regarding: the historical points, exam findings, and any diagnostic results supporting the discharge/admit diagnosis, the need for outpatient follow up, a [employer]. Response to treatment: the patient's symptoms have markedly improved after treatment, patient is well hydrated. 04:06 Patient medically screened. [facility] Administered Medications: 04:13 Drug: Acetaminophen 1000 mg Route: PO; cc4 04:15 Follow up: Response: No adverse reaction cc4 Disposition Summary: 03/25/21 04:06 Discharge Ordered Location: Home [facility] Problem: chronic [facility] Symptoms: have improved [facility] Condition: Stable [facility] Diagnosis - Low back pain - chronic mh7 Followup: [facility] - With: Private Physician - When: 1 - 2 days - Reason: Worsening of condition, Recheck today's complaints, Continuance of care, Re-evaluation by your physician Discharge Instructions: - Discharge Summary Sheet [facility] - Chronic Back Pain, [id number] [facility] Forms: - Medication Reconciliation Form [facility] - Thank You Letter [facility] - Antibiotic Education [facility] - Prescription Opioid Use [facility] Signatures: Rock Garcia MD MD [facility] Felicitas Ramirez RN RN cc4 Corrections: (The following items were deleted from the chart) 03:45 03:40 Onset: The symptoms/episode began/occurred [place] [id number] 03:56 03:30 PMHx: Arthritis; cc4 cc4 03:56 03:30 PSHx: Cholecystectomy; cc4 cc4 03:56 03:30 PSHx: hysterectomy; cc4 cc4 04:19 03:30 Home Meds: citalopram 10 mg tab 1 tab once daily [Inactive]; cc4 cc4 04:19 03:30 Home Meds: ropinirole Oral [Inactive]; cc4 cc4 04:19 03:30 Home Meds: Celebrex Oral [Inactive]; cc4 cc4
[2021-03-25] MEDS ORDERED: ACETAMINOPHEN 500 MG TAB ONE (04:12)
[2021-03-25 04:53] VITALS: BP 135/65; TEMP 97.7; O2SAT 96
== END 2021-03-25 04:48 | disposition home or self-care (01) ==
LOC: ER 03:06
DX: M54.50 Low back pain, unspecified (principal); F41.8 Other specified anxiety disorders; Z88.5 Allergy status to narcotic agent
CPT/HCPCS: 99283

== ENCOUNTER 2021-09-21 14:19 | Emergency (ER) | payer OTHER ==
--- OUTSIDE RECORDS SUMMARY | 2021-09-21 14:23 | XMS REPORT | Continuity of Care Document ---
:1945 Author Organization [facility] t Address [address] [place] [address] Care Team Providers Name Role Phone David Felder Attending Clinician Unavailable DAVID_Laurie Attending Clinician Unavailable Uriel_Laurie Attending Clinician Unavailable DAVID_S Admitting Clinician Unavailable Uriel_S Admitting Clinician Unavailable Payers Payer Name Policy Type Policy Number Effective Date Expiration Date S ryan [facility] [id number] 2020 (MEDICARE 00:00:00 REPLACEMENT HMO) Problems This patient has no known problems. Allergies, Adverse Reactions, Alerts Allergy Allergy Status Severity Reaction(s) Onset Inactive Treating Comm ents Source Name Type Date Date Clinician codeine Adverse Active rash Common Reaction [facility] MORPHINE Adverse Active rash Common Reaction [facility] Medications Ordered Filled Start Stop Current Ordering Indication Dosage Frequency Signature Comments Components Source Medication Medication Date Date Medication? Clinician (SIG) Name Name Zolpidem Zolpidem Yes Jaziel 1 tablet Common Tartrate Tartrate 7-02 Felder at bedtime [facility] 00:[facility]: - [facility] 00 [facility] Trazodone Trazodone Yes Jaziel 1 tablet Common HCl HCl Felder at bedtime [facility] as needed [facility] Ondansetron Ondansetron Yes Jaziel not Common HCl HCl Felder defined [facility] Mupirocin Mupirocin Yes Jaziel not Com mon Felder defined [facility] Estrace Estrace Yes Jaziel as Common Felder directed [facility] Citalopram Citalopram Yes Jaziel 1 tablet Common Hydrobromid Hydrobromid Felder [facility] e e [facility] Lidocaine Lidocaine Yes Jaziel not Com mon Felder defined [facility] Omeprazole Omeprazole Yes Jaziel 1 capsule Common Felder [facility] Requip Requip Yes Jaziel 1 tablet 1 Com mon Felder to 3 hours Spirit before - [facility] bedtime [facility] Hydrocodone Hydrocodone Yes Jaziel (Schedule Common -Acetaminop -Acetaminop Felder II Drug) Spirit hen hen TK 1 T PO - [facility] Q 12 H [facility] Ropinirole Ropinirole Yes Jaziel TAKE 1 Common HCl HCl Felder TABLET BY Spirit MOUTH 1 TO - [facility] [address] [facility]FORE AT [facility] BEDTIME. Medical [place] Celecoxib Celecoxib Yes Jaziel 1 capsule Common Felder with food [facility] Methocarbam Methocarbam Yes Jaziel 1 tablet Common ol ol Felder [facility] Immunizations Ordered Immunization Filled Immunization Date Status Commen ts Source Name Name FluAD FluAD 2018-05-27 Completed Common [facility] 00:00:00 [facility] Procedures This patient has no known procedures. Encounters Start End Encounter Admission Attending Care Care Encounter Source Date/Time Date/Time Type Type Clinicians Facility Department ID 2021-08-31 Outpatient Felder, [facility] [id number] Common 08:13:00 Jaziel [facility] 2021-08-29 Outpatient Felder, [facility] [id number] Common 16:06:01 Jaziel [facility] 2021-08-02 Outpatient Felder, [facility] [id number] Common 15:06:01 Jaziel [facility] 2021-07-13 Outpatient Felder, [facility] [id number] Common 11:40:00 Jaziel [facility] 2021-05-25 Outpatient Felder, [facility] [id number] Common 14:11:12 Jaziel [facility] 2021-05-25 Outpatient Felder, [facility] [id number] Common 13:59:47 Jaziel [id number] [facility] 2021-05-25 Outpatient Felder, [facility] [id number] Common 13:46:37 Jaziel [id number] [facility] 2021-05-25 Outpatient Felder, [facility] [id number] Common 13:43:52 Jaziel [id number] [facility] 2021-05-25 Outpatient Felder, [facility] [id number] Common 13:36:49 Jaziel [id number] [facility] 2021-05-25 Outpatient Felder, [facility] [id number] Common 12:50:14 Jaziel [id number] [facility] 2021-05-25 Outpatient Felder, [facility] [id number] Common 12:30:16 Jazile [id number] [facility] 2021-05-25 Outpatient Felder, [facility] [id number] Common 12:29:57 Jaziel [id number] [facility] 2021-05-25 Outpatient Felder, [facility] [id number] Common 12:28:23 Jaziel [id number] [facility] 2021-05-25 Outpatient Felder, [facility] [id number] Common 12:08:37 Jaziel [id number] [facility] 2021-05-25 Outpatient Felder, [facility] [id number] Common 12:07:28 Jaziel [id number] [facility] 2021-05-25 Outpatient Felder, [facility] [id number] Common 12:01:53 Jaziel [id number] [facility] 2021-05-25 Outpatient Felder, [facility] [id number] Common 12:01:48 Jaziel [id number] [facility] 2021-05-25 Outpatient Felder, [facility] [id number] Common 11:49:47 Jaziel [id number] [facility] 2021-05-25 Outpatient Felder, [facility] [id number] Common 11:34:35 Jaziel [id number] [facility] 2021-05-25 Outpatient Felder, [facility] [id number] Common 11:27:18 Jaziel [id number] [facility] 2021-05-25 Outpatient Felder, [facility] [id number] Common 11:17:40 Jaziel 16550 [facility] 2021-05-25 Outpatient Felder, [facility] [id number] Common 11:17:19 Jaziel 16056 [facility] 2021-05-25 Outpatient Felder, [facility] [id number] Common 10:57:41 Jaziel [id number] [facility] 2021-09-15 2021-09-15 ambulatory [facility] [id number] Common 00:00:00 00:00:00 [facility] 2021-08-31 2021-08-31 ambulatory [facility]C [facility] [id number] Common 00:00:00 00:00:00 [facility] 2021-08-18 2021-08-18 ambulatory [facility]C [facility] [id number] Common 00:00:00 00:00:00 [facility] 2021-08-04 2021-08-04 ambulatory [facility] [id number] Common 00:00:00 00:00:00 [facility] 2021-08-02 2021-08-02 ambulatory [facility] [id number] Common 00:00:00 00:00:00 [facility] 2021-08-01 2021-08-01 ambulatory [facility]C ST[facility] [id number] Common 00:00:00 00:00:00 [facility] 2021-07-25 2021-07-25 ambulatory [facility]C ST[facility] [id number] Common 00:00:00 00:00:00 [facility] 2021-07-212021-07-21 ambulatory [facility]C [facility] [id number] Common 00:00:00 00:00:00 [facility] 2021-07-18 2021-07-18 ambulatory [facility]C ST[facility] [id number] Common 00:00:00 00:00:00 [facility] 2021-07-13 2021-07-13 ambulatory STLMLC ST[facility] [id number] Common 00:00:00 00:00:00 [facility] 2021-07-13 2021-07-13 ambulatory STLMLC STL[facility]C [id number] Common 00:00:00 00:00:00 [facility] 2021-07-12 2021-07-12 ambulatory STLMLC STL[facility]C [id number] Common 00:00:00 00:00:00 [facility] 2021-07-11 2021-07-11 ambulatory [facility]LMLC ST[facility] [id number] Common 00:00:00 00:00:00 [facility] 2021-07-07 2021-07-07 ambulatory STLMLC STL[facility]C [id number] Common 00:00:00 00:00:00 [facility] 2021-06-23 2021-06-23 ambulatory STLMLC ST[facility] [id number] Common 00:00:00 00:00:00 [facility] 2021-05-26 2021-05-26 ambulatory STLMLC STL[facility]C [id number] Common 00:00:00 00:00:00 [facility] 2021-05-20 2021-05-20 ambulatory STLMLC STL[facility] [id number] Common 00:00:00 00:00:00 [facility] 2021-05-20 2021-05-20 ambulatory STLMLC ST[facility]C [id number] Common 00:00:00 00:00:00 [facility] 2021-05-13 2021-05-13 ambulatory STLMLC STL[facility]C [id number] Common 00:00:00 00:00:00 [facility] 2021-05-12 2021-05-12 ambulatory STLMLC STL[facility]C [id number] Common 00:00:00 00:00:00 [facility] 2021-05-06 2021-05-06 ambulatory STLMLC STL[facility]C [id number] Common 00:00:00 00:00:00 [facility] 2021-05-06 2021-05-06 ambulatory STLMLC ST[facility] [id number] Common 00:00:00 00:00:00 [facility] 2021-04-15 2021-04-15 ambulatory STLMLC ST[facility] [id number] Common 00:00:00 00:00:00 [facility] 2021-04-05 2021-04-05 ambulatory [facility]LMLC ST[facility] [id number] Common 00:00:00 00:00:00 [facility] 2021-04-01 2021-04-01 ambulatory STLMLC STL[facility]C [id number] Common 00:00:00 00:00:00 [facility] 2021-03-21 2021-03-21 ambulatory [facility]LMLC ST[facility] [id number] Common 00:00:00 00:00:00 [facility] 2021-03-21 2021-03-21 ambulatory [facility]C ST[facility] [id number] Common 00:00:00 00:00:00 [facility] 2021-03-18 2021-03-18 ambulatory [facility]C STL[facility] [id number] Common 00:00:00 00:00:00 [facility] 2021-02-16 2021-02-16 Outpatient [facility] [id number] Common 00:00:00 00:00:00 [facility] 2021-02-02 2021-02-02 Outpatient [facility]C ST[facility] [id number] Common 00:00:00 00:00:00 [facility] 2021-01-20 2021-01-20 Outpatient [facility]C ST[facility] [id number] Common 00:00:00 00:00:00 [facility] 2021-01-12 2021-01-12 Outpatient STL[facility]C STL[facility]C [id number] Common 00:00:00 00:00:00 [facility] 2021-01-12 2021-01-12 Outpatient [facility]C ST[facility] [id number] Common 00:00:00 00:00:00 [facility] 2020-12-29 2020-12-29 Outpatient STL[facility]C ST[facility] [id number] Common 00:00:00 00:00:00 [facility] 2020-12-29 2020-12-29 Outpatient STL[facility]C STL[facility]C [id number] Common 00:00:00 00:00:00 [facility] 2020-12-22 2020-12-22 Outpatient STLMLC ST[facility]C [id number] Common 00:00:00 00:00:00 [facility] 2020-12-17 2020-12-17 Outpatient STL[facility]C ST[facility] [id number] Common 00:00:00 00:00:00 [facility] 2020-12-08 2020-12-08 Outpatient CURRY_S DMG [id number] [facility] 01:39:00 01:39:00 [facility] 2020-12-08 2020-12-08 Outpatient STLMLC STLMLC [id number] Common 00:00:00 00:00:00 [facility] 2020-11-18 2020-11-18 Outpatient STLMLC STL[facility]C [id number] Common 00:00:00 00:00:00 [facility] 2020-11-11 2020-11-11 Outpatient STLMLC STLMLC [id number] Common 00:00:00 00:00:00 [facility] 2020-11-10 2020-11-10 Outpatient STLMLC STLMLC [id number] Common 00:00:00 00:00:00 [facility] 2020-11-04 2020-11-04 Outpatient STLMLC STLMLC [id number] Common 00:00:00 00:00:00 [facility] 2020-10-29 2020-10-29 Outpatient Kautz_S DMG DMG [id number] [facility] 02:30:00 02:30:00 0702 [facility] 2020-10-15 2020-10-15 Outpatient STLMLC STLMLC [id number] Common 00:00:00 00:00:00 [facility] 2020-09-24 2020-09-24 Outpatient DMG DMG [id number] [facility] 08:00:00 08:00:00 0528 [facility] 2020-09-16 2020-09-16 Outpatient STLMLC STLMLC [id number] Common 00:00:00 00:00:00 [facility] 2020-09-07 2020-09-07 Outpatient STLMLC STLMLC [id number] Common 00:00:00 00:00:00 [facility] 2020-09-02 2020-09-02 Outpatient STLMLC STLMLC [id number] Common 00:00:00 00:00:00 [facility] 2020-08-24 2020-08-24 Outpatient STLMLC STLMLC [id number] Common 00:00:00 00:00:00 [facility] 2020-08-05 2020-08-05 Outpatient STLMLC STLMLC [id number] Common 00:00:00 00:00:00 [facility] 2020-07-22 2020-07-22 Outpatient STLMLC STLMLC [id number] Common 00:00:00 00:00:00 [facility] 2020-06-09 2020-06-09 Outpatient STLMLC STLMLC [id number] Common 00:00:00 00:00:00 [facility] 2020-06-02 2020-06-02 Outpatient STLMLC STLMLC [id number] Common 00:00:00 00:00:00 [facility] 2020-05-13 2020-05-13 Outpatient STLMLC STLMLC [id number] Common 00:00:00 00:00:00 [facility] 2020-04-28 2020-04-28 Outpatient STLMLC STLMLC [id number] Common 00:00:00 00:00:00 [facility] 2020-04-13 2020-04-13 Outpatient STLMLC STLMLC [id number] Common 00:00:00 00:00:00 [facility] 2020-03-30 2020-03-30 Outpatient STLMLC STLMLC [id number] Common 00:00:00 00:00:00 [facility] 2020-03-22 2020-03-22 Outpatient STLMLC STLMLC [id number] Common 00:00:00 00:00:00 [facility] 2020-03-16 2020-03-16 Outpatient STLMLC STLMLC [id number] Common 00:00:00 00:00:00 [facility] 2020-03-02 2020-03-02 Outpatient STLMLC STLMLC [id number] Common 00:00:00 00:00:00 [facility] 2020-02-20 2020-02-20 Outpatient STLMLC STLMLC [id number] Common 00:00:00 00:00:00 [facility] 2020-01-26 2020-01-26 Outpatient STLMLC STLMLC [id number] Common 00:00:00 00:00:00 [facility] 2020-01-15 2020-01-15 [id number] Common 14:00:00 14:00:[address] [place] [address] [facility] 2019-12-29 2019-12-29 [facility] [id number] Common 15:30:00 15:30:00 [address] [place] [address] [facility] 2019-12-15 2019-12-15 [facility] [id number] Common 15:30:00 15:30:00 [address] [place] [address] [facility] 2019-12-09 2019-12-09 [facility] [id number] Common 09:51:00 09:51:00 [address] [place] [address] [facility] 2019-12-01 2019-12-01 [facility] [id number] Common 16:45:00 16:45:00 [address] [place] [address] [facility] 2019-11-17 2019-11-17 [facility] [id number] Common 10:15:00 10:15:00 [address] [place] [address] [facility] 2019-10-30 2019-10-30 [facility] [id number] Common 16:00:00 16:00:00 [place] [address] [facility] 2019-10-30 2019-10-30 [facility] [id number] Common 15:30:00 15:30:00 [address] [place] [address] [facility] 2019-10-16 2019-10-16 [facility] [id number] Common 13:30:00 13:30:00 [address] [place] [address] [facility] 2019-08-20 2019-08-20 [facility] [id number] Common 15:08:00 15:08:00 [address] [place] [address] [facility] 2019 2019 [facility] [id number] Common 10:45:00 10:45:00 [address] [place] [address] [facility] 2019-07-08 2019-07-08 [facility] [id number] Common 13:30:00 13:30:00 [address] [place] [address] [facility] 2019-07-02 2019-07-02 [facility] [id number] Common 11:14:00 11:14:00 [address] [place] [address] [facility] 2019-06-18 2019-06-18 [facility] [id number] Common 06:25:00 06:25:00 [address] [place] [address] [facility] 2019-06-17 2019-06-17 [facility] [id number] Common 14:15:00 14:15:00 [address] [place] [address] [facility] 2019-05-15 2019-05-15 [facility] [id number] Common 08:25:00 08:25:00 [facility] 2019-05-13 2019-05-13 [facility] [id number] Common 14:39:00 14:39:00 [facility] 2019-05-12 2019-05-12 [facility] [id number] Common 14:11:00 14:11:00 [facility] 2019-05-07 2019-05-07 [facility] [id number] Common 13:00:00 13:00:00 [place] [address] [facility] 2019-05-05 2019-05-05 [facility] [id number] Common 10:15:00 10:15:00 [address] [place] [address] [facility] 2019-05-01 2019-05-01 [facility] [id number] Common 08:30:00 08:30:00 [place] [address] [facility] 2019-04-15 2019-04-15 [facility] [id number] Common 15:30:00 15:30:00 t [facility] 2019-04-11 2019-04-11 [facility] [id number] Common 11:41:00 11:41:00 t [facility] 2019-04-02 2019-04-02 [facility] [id number] Common 11:00:00 11:00:00 t [facility] 2019-03-05 2019-03-05 [facility] [id number] Common 13:00:00 13:00:[address] [facility] [address] [facility] 2019-03-05 2019-03-05 [facility] [id number] Common 11:24:00 11:24:00 [address] [place] [address] [facility] 2019-02-21 2019-02-21 [facility] [id number] Common 09:01:00 09:01:00 t [facility] 2019-02-12 2019-02-12 [facility] [id number] Common 16:21:00 16:21:00 t [facility] t [facility] 2019-02-11 2019-02-11 [facility] [id number] Common 14:30:00 14:30:00 t [facility] 2019-01-30 2019-01-30 [facility] [id number] Common 13:10:00 13:10:00 t [facility] 2019-01-29 2019-01-29 [facility] [id number] Common 09:15:00 09:15:00 [place] [address] [facility] 2018-12-23 2018-12-23 [facility] [id number] Common 14:30:00 14:30:00 [facility] 2018-12-17 2018-12-17 [facility] [id number] Common 13:15:00 13:15:00 [address] [place] [address] [facility] 2018-10-03 2018-10-03 [facility] [id number] Common 13:30:00 13:30:00 t [facility] 2018-09-12 2018-09-12 [facility] [id number] Common 12:09:00 12:09:00 t [facility] 2018-09-11 2018-09-11 [facility] [id number] Common 10:28:00 10:28:00 t [facility] 2018-09-05 2018-09-05 [facility] [id number] Common 14:45:00 14:45:00 [address] [place] [address] [facility] 2018-08-26 2018-08-26 [facility] [id number] Common 13:00:00 13:00:00 [place] [address] [facility] 2018-07-29 2018-07-29 [facility] [id number] Common 16:45:00 16:45:00 [place] [address] [facility] 2018-07-29 2018-07-29 [facility] [id number] Common 15:46:00 15:46:00 [address] [place] [address] [facility] 2018-07-10 2018-07-10 [facility] [id number] Common 15:43:00 15:43:00 [place] [address] [facility] 2018-06-25 2018-06-25 [facility] [id number] Common 10:30:00 10:30:00 [place] [address] [facility] 2018-05-30 2018-05-30 [facility] [id number] Common 16:16:00 16:16:00 [place] [address] [facility] 2018-05-27 2018-05-27 [facility] [id number] Common 13:00:00 13:00:00 [place] [address] [facility] 2018-05-20 2018-05-20 [facility] [id number] Common 12:05:00 12:05:00 [place] [address] [facility] 2017-11-20 2017-11-20 [facility] [id number] Common 10:36:00 10:36:00 [place] [address] [facility] 2017-10-02 2017-10-02 [facility] [id number] Common 13:15:00 13:15:00 [place] [address] [facility] 2017-09-13 2017-09-13 [facility] [id number] Common 10:07:00 10:07:00 [place] [address] [facility] 2017-09-12 2017-09-12 [facility] [id number] Common 10:16:00 10:16:00 [place] [address] [facility] 2017-09-11 2017-09-11 [facility] [id number] Common 13:15:00 13:15:00 [place] [address] [facility] 2017-08-24 2017-08-24 [facility] [id number] Common 08:15:00 08:15:00 [place] [address] [facility] 2017-08-22 2017-08-22 [facility] [id number] Common 13:00:00 13:00:00 [address] [place] [address] [facility] Results This patient has no known results.
[2021-09-21] MEDS ORDERED: MEPERIDINE HCL 25 MG/ML SYR ONE ×2 (14:58→19:44)
[2021-09-21] MEDS ORDERED: ONDANSETRON 4 MG/2 ML VIAL ONE ×2 (14:58→19:44)
[2021-09-21 15:02] LABS: Hematocrit 41.8 % (36.0-45.0); Lymphocytes % 9.5 % (15.3-44.8); MPV 7.3 fL (7.6-11.3); RBC Red Blood Cell Count 4.59 M/uL (3.86-4.86)
[2021-09-21] MEDS ORDERED: NA CHLORIDE 0.9% 500 ML ONE (15:04)
[2021-09-21 15:23] LABS: Bilirubin Total 1.8 mg/dL (0.2-1.0); Potassium 3.3 mmol/L (3.5-5.1); Protein, Total 7.8 g/dL (6.4-8.2)
[2021-09-21] MEDS ORDERED: PROMETHAZINE INJ 25 MG/ML AMP ONE (15:37)
[2021-09-21] MEDS ORDERED: NA CHLORIDE 0.9% 1,000 ML ONE (15:37)
[2021-09-21] MEDS ORDERED: CEFTRIAXONE 1000 MG/VIAL ONE (15:37)
--- NOTE | 2021-09-21 16:43 | RAD REPORT ---
EXAM DESCRIPTION: CT - Stone Protocol - 09/21/2021 4:36 pm CLINICAL HISTORY: Flank pain. Flank pain, kidney stone suspected COMPARISON: Abdomen Pelvis W Contrast dated 11/26/2020 TECHNIQUE: Axial images were obtained without oral or IV contrast. Lack of contrast limits solid org an and vascular assessment. The rcatn-cj-[id number] spans the entirety of the system partially obscuring uppermost abdomen and lung bases. Coronal reformatted images were obtained and reviewed. All CT scans are performed using dose optimization technique as appropriate and may include automated exposure control or mA/KV adjustment according to patient size. FINDINGS: The lower lung babin are clear. Cholecystectomy. Imaged portions of the liver and spleen show no suspicious findings on non-contrast imaging. The panc reas and adrenal glands are normal. No pathologic lymphadenopathy in the abdomen or pelvis. 6 mm stone is present distal right ureter with riqt-hv-ozfqjndx right-sided hydronephrosis and hydrou reter. Prominent cyst is present superior left kidney measuring 22 mm. No bowel obstruction, free air, free fluid or abscess. Appendectomy. No significant bony abnormality. IMPRESSION: 6 mm stone is present distal right ureter with mild to moderate right hydronephrosis.
--- NOTE | 2021-09-21 16:47 | ER ---
Nurse's Notes [facility] Name: Oralia Garcia Age: 76 yrs Sex: Female : 1945 Arrival Date: 09/21/2021 Time: 14:22 Bed 4 Private MD: Jaziel Felder Diagnosis: Severe sepsis without septic shock;UTI/ Urinary tract infection, site not specified;Hydronephrosis with renal and ureteral calculous obstruction Presentation: 09/21 17:10 Chief complaint: Patient states: burning with urination, generalized pain, bilateral oliveros flank pain. Coronavirus screen: Vaccine status: Patient reports receiving the 2nd dose of the covid vaccine. Ebola Screen: Patient denies travel to an Ebola-affected area in the 21 days before illness onset. Initial Sepsis Screen: Does the patient meet any 2 criteria? HR > 90 bpm. No. Patient's initial sepsis screen is negative. Does the patient have a suspected source of infection? Yes:. Risk Assessment: Do you want to hurt yourself or someone else? Patient reports no desire to harm self or others. Onset of symptoms was September 21, 2021. 17:10 Acuity: LIGIA 3 oliveros 17:10 Method Of Arrival: Ambulatory oliveros Triage Assessment: 17:10 General: Appears in no apparent distress. Behavior is agitated, anxious. oliveros Historical: - Allergies: 17:08 Codeine; oliveros 17:08 Morphine; oliveros 17:08 Darvon; oliveros - Home Meds: 17:08 Celebrex Oral for SIATICA [Active]; citalopram 10 mg tab 1 tab once daily for Anxiety oliveros with Depression [Active]; ropinirole Oral once daily for restless leg syndrome [Active]; - PMHx: 17:08 Anxiety; Depression; restless leg; SIATICA; oliveros - Immunization history:: Adult Immunizations up to date. - Family history:: not pertinent. - Social history:: Smoking status: Patient denies any tobacco usage or history of. - Hospitalizations: : No recent hospitalization is reported. Screenin:08 Abuse screen: Denies threats or abuse. Denies injuries from another. Nutritional oliveros screening: No deficits noted. Tuberculosis screening: No symptoms or risk factors identified. Fall Risk IV access (20 points). Gait- Weak (10 pts.). Mental Status- Overestimates/Forgets Limitations (15 pts.). Assessment: 17:08 Pain: Complains of pain in generalized pain. GI: Bowel sounds present X 4 quads. Abd is oliveros soft and non tender. : Reports burning with urination, pain urgency, urinary frequency. 17:32 Reassessment: No changes from previously documented assessment. Patient and/or family ll1 updated on plan of care and expected duration. Pain level reassessed. 18:18 Reassessment: No changes from previously documented assessment. Patient and/or family ll1 updated on plan of care and expected duration. Pain level reassessed. 18:30 General: Appears in no apparent distress. ill, Behavior is cooperative, drowsy. Neuro: jl7 Level of Consciousness is obeys commands, Drowsy, responds to verbal stimuli.. Oriented to person, place, time, situation. Cardiovascular: Patient's skin is warm and dry. Respiratory: Airway is patent Respiratory effort is even, unlabored, Respiratory pattern is regular, symmetrical. GI: Abdomen is non-distended. : Reports burning with urination. Derm: Skin is pink, warm \\T\\ dry. 19:45 Reassessment: No changes from previously documented assessment. Patient and/or family tw5 updated on plan of care and expected duration. Pain level reassessed. Vital Signs: 17:10 BP 103 / 55; Pulse 90; Resp 19; Temp 98.5(O); Pulse Ox 94% on R/A; Weight 102.06 kg; oliveros Height 5 ft. 4 in. (162.56 cm); 17:32 BP 123 / 53; Pulse 91; Resp 19; ll1 18:18 BP 132 / 59; Pulse 97; Resp 18; Pulse Ox 100% ; ll1 18:57 BP 137 / 53; Pulse 98; Resp 19 S; Temp 99.7(O); Pulse Ox 97% ; jl7 17:10 Body Mass Index 38.62 (102.06 kg, 162.56 cm) ED Course: 14:22 Patient arrived in ED. mr 14:22 Jaziel Felder DO is Private Physician. mr 14:33 Joshua Lincoln MD is Attending Physician. rn 14:38 Samina Sung, RN is Primary Nurse. iw 14:39 Samina Sung, RN is Primary Nurse. iw 15:08 Initial lab(s) drawn, by me, sent to lab. Inserted saline lock: 20 gauge in right [facility] antecubital area, using aseptic technique. Blood collected. 15:09 Patient has correct armband on for positive identification. Bed in low position. Call [facility] light in reach. Side rails up X 1. Pulse ox on. NIBP on. 15:17 Straight cath inserted, using sterile technique, 16 Fr. [facility] 15:18 Straight cath inserted, using sterile technique, 16 Fr. [facility] 15:40 First set of blood cultures drawn by ms. [facility] 15:47 Lactate Sent. 5 15:47 Blood Culture Adult (2) Sent. [facility] 15:48 Inserted saline lock: 20 gauge in left antecubital area, using aseptic technique. Blood [facility] collected. 16:38 CT Stone Protocol In Process Unspecified. EDMS 16:46 Maddy Randolph MD is Hospitalizing Provider. rn 16:52 Blood Culture Adult (2) Sent. 5 16:52 Urine Culture Sent. [facility] 16:52 Urine Microscopic Only Sent. [facility] 16:52 Urine collected: straight cath specimen, jesse colored. [facility] 16:53 COVID swab sent to lab. 5 16:53 Warm blanket given. [facility] 17:08 No provider procedures requiring assistance completed. oliveros 17:10 Arm band placed on. oliveros 17:17 Triage completed. oliveros 17:18 Marina Rodrigues, TRICIA is Primary Nurse. oliveros 17:32 SARS-COV-2 RT PCR (Document "Date of Onset" if Symptomatic) Sent. 5 17:[address] [facility]. bd 18:18 Primary Nurse role handed off by Marina Rodrigues, TRICIA [facility] 18:18 Beti Sanches, TRICIA is Primary Nurse. 1 19:00 Patient transferred, IV remains in place. intact, No redness/swelling at site. jl7 Administered Medications: 14:57 Drug: Zofran (Ondansetron) 4 mg Route: IVP; Site: right antecubital; oliveros 17:31 Follow up: Response: No adverse reaction 1 14:57 Drug: Demerol (meperidine) 25 mg Route: IVP; Site: right antecubital; oliveros 15:30 Follow up: Response: No adverse reaction oliveros 15:30 Drug: NS 0.9% 500 ml Route: IV; Rate: bolus; Site: right antecubital; oliveros 17:19 Follow up: Response: No adverse reaction oliveros 17:19 Follow up: IV Status: Completed infusion oliveros 15:42 Drug: NS 0.9% 1000 ml Route: IV; Rate: 1000 ml; Site: right antecubital; oliveros 17:19 Follow up: IV Status: Completed infusion oliveros 15:42 Drug: Rocephin (cefTRIAXone) 1 grams Route: IV; Rate: calculated rate; Site: right oliveros antecubital; 17:19 Follow up: IV Status: Completed infusion oliveros 16:48 Drug: NS 0.9% (30 ml/kg) 30 ml/kg Route: IV; Rate: bolus; Site: left antecubital; oliveros 16:48 Drug: Magnesium Sulfate 1 grams Route: IVPB; Infused Over: 1 hrs; Site: right oliveros antecubital; 17:19 Follow up: IV Status: Completed infusion oliveros 16:48 Drug: Flomax (tamsulosin) 0.4 mg Route: PO; oliveros 17:18 Follow up: Response: No adverse reaction oliveros 18:57 Drug: Tylenol 1000 mg Route: PO; jl7 19:52 Drug: Demerol (meperidine) 25 mg Route: IVP; Site: left antecubital; 5 19:52 Drug: Zofran (Ondansetron) 4 mg Route: IVP; Site: left antecubital; 5 Medication: 17:08 VIS not applicable for this client. Outcome: 16:47 Decision to Hospitalize by Provider. rn 17:24 ER care complete, transfer ordered by MD. rn 19:53 Patient left the ED. 5 Signatures: Dispatcher [employer] EDMS Martine Medina Mary mr Williams, Irene, RN Joshua Dennis MD MD rn Martinez, Maria Carey Kam RN RN jl7 Beti Sanches RN RN ll1 Wood, Tiffany 5 Kellee Weiss RN RN 5 Marina Rodrigues RN RN oliveros
--- NOTE | 2021-09-21 16:47 | EDPHYS ---
Physician Documentation [facility] Name: Oralia Garcia Age: 76 yrs Sex: Female : 1945 Arrival Date: 09/21/2021 Time: 14:22 Bed 4 Private MD: [facility] ED Physician Joshua Lincoln HPI: 09/21 15:27 This 76 yrs old Female presents to ER via Unassigned with complaints of flank rn pain/buttocks pain. 15:27 The patient complains of pain in the right low back. The pain radiates to the buttocks rn and abdomen. Onset: The symptoms/episode began/occurred 1 day(s) ago. Modifying factors: The symptoms are alleviated by nothing. the symptoms are aggravated by nothing. Associated signs and symptoms: Pertinent positives: dysuria, fever, nausea, vomiting, Pertinent negatives: headache. Severity of pain: At its worst the pain was moderate in the emergency department the pain is unchanged. The patient has experienced similar episodes in the past. The patient has not recently seen a physician. Pt reports right flank pain, right lower abd pain, radiates to buttocks, began 24 hours ago, assoc with nausea/vomiting/subjective fever. Denies trauma. Has had multiple kidney stones in past and this feels identical to her. . Historical: - Allergies: 17:08 Codeine; oliveros 17:08 Morphine; oliveros 17:08 Darvon; oliveros - Home Meds: 17:08 Celebrex Oral for SIATICA [Active]; citalopram 10 mg tab 1 tab once daily for Anxiety oliveros with Depression [Active]; ropinirole Oral once daily for restless leg syndrome [Active]; - PMHx: 17:08 Anxiety; Depression; restless leg; SIATICA; oliveros - Immunization history:: Adult Immunizations up to date. - Family history:: not pertinent. - Social history:: Smoking status: Patient denies any tobacco usage or history of. - Hospitalizations: : No recent hospitalization is reported. ROS: 15:27 Constitutional: + fever Eyes: Negative for injury, pain, redness, and discharge, ENT: rn Negative for injury, pain, and discharge, Neck: Negative for injury, pain, and swelling, Cardiovascular: Negative for chest pain, palpitations, and edema, Respiratory: Negative for shortness of breath, cough, wheezing, and pleuritic chest pain, Abdomen/GI: + abd pain and nausea/vomiting Back: + low back pain : Negative for injury, bleeding, discharge, and swelling, MS/Extremity: Negative for injury and deformity, Skin: Negative for injury, rash, and discoloration, Neuro: Negative for headache, weakness, numbness, tingling, and seizure. Exam: 15:27 Constitutional: This is a well developed, well nourished patient who is awake, alert, rn appears uncomfortable Head/Face: Normocephalic, atraumatic. Eyes: Periorbital areas with no swelling, redness, or edema. ENT: dry MM Cardiovascular: Tachycardic, regular Respiratory: Mild tachypnea Abdomen/GI: soft, non-tender Back: No spinal tenderness. No costovertebral tenderness. Skin: Warm, dry MS/ Extremity: Pulses equal, no cyanosis. Neuro: Awake and alert, GCS 15 Vital Signs: 17:10 BP 103 / 55; Pulse 90; Resp 19; Temp 98.5(O); Pulse Ox 94% on R/A; Weight 102.06 kg; oliveros Height 5 ft. 4 in. (162.56 cm); 17:32 BP 123 / 53; Pulse 91; Resp 19; ll1 18:18 BP 132 / 59; Pulse 97; Resp 18; Pulse Ox 100% ; ll1 18:57 BP 137 / 53; Pulse 98; Resp 19 S; Temp 99.7(O); Pulse Ox 97% ; jl7 17:10 Body Mass Index 38.62 (102.06 kg, 162.56 cm) oliveros MDM: 14:33 Patient medically screened. rn 16:36 ED course: Pt improved, seems much more comfortable. . rn 16:46 Differential diagnosis: nephrolithiasis, pyelonephritis, UTI, sepsis,. severe sepsis. rn Data reviewed: vital signs, nurses notes, lab test result(s), radiologic studies, CT scan, and as a result, I will admit patient. Counseling: I had a detailed discussion with the patient and/or guardian regarding: the historical points, exam findings, and any diagnostic results supporting the discharge/admit diagnosis, lab results, radiology results, the need for further work-up and treatment in the hospital. Response to treatment: the patient's symptoms have markedly improved after treatment, and as a result, I will admit patient. Admission orders: after a detailed discussion of the patient's condition and case, the admit orders are written by me. 16:50 ED course: Pt with elevate lactate, UTI as source, meets criteria for severe sepsis rn without septic shock. Abx ordered. Consulting Dr. Nevarez. . 17:06 ED course: Called Dr. Nevarez twice, no answer, will have to transfer patient without rn being able to confirm his availability and clinical condition of patient with severe sepsis. Initiating transfer to [facility].. 17:45 ED course: Accepted for transfer to [facility]. Spoke with Urology, awaiting rn hospitalist consultation.. 18:03 ED course: Sepsis reevaluation complete. . rn 18:45 ED course: Lactate improved to 2.0. rn 09/21 14:37 Order name: CBC with Diff; Complete Time: 18:07 09/21 14:37 Order name: CMP; Complete Time: 16:34 09/21 14:37 Order name: Urine Microscopic Only; Complete Time: 17:43 09/21 14:37 Order name: Urine Culture 09/21 15:20 Order name: Blood Culture Adult (2) rn 09/21 15:20 Order name: Lactate; Complete Time: 16:34 09/21 14:37 Order name: CT Stone Protocol; Complete Time: 16:45 09/21 16:51 Order name: Urine Dipstick-Ancillary; Complete Time: 16:52 [facility] 09/21 16:55 Order name: SARS-COV-2 RT PCR (Document "Date of Onset" if Symptomatic); Complete Time: iw 18:45 09/21 17:39 Order name: Manual Differential; Complete Time: 18:07 EDIL 09/21 18:03 Order name: Lactate; Complete Time: 18:45 09/21 14:37 Order name: IV Saline Lock; Complete Time: 14:57 rn 09/21 14:37 Order name: Labs collected and sent; Complete Time: 14:57 09/21 14:37 Order name: Urine Dipstick-Ancillary (obtain specimen); Complete Time: 16:52 rn Administered Medications: 14:57 Drug: Zofran (Ondansetron) 4 mg Route: IVP; Site: right antecubital; oliveros 17:31 Follow up: Response: No adverse reaction ll1 14:57 Drug: Demerol (meperidine) 25 mg Route: IVP; Site: right antecubital; oliveros 15:30 Follow up: Response: No adverse reaction oliveros 15:30 Drug: NS 0.9% 500 ml Route: IV; Rate: bolus; Site: right antecubital; oliveros 17:19 Follow up: Response: No adverse reaction oliveros 17:19 Follow up: IV Status: Completed infusion oliveros 15:42 Drug: NS 0.9% 1000 ml Route: IV; Rate: 1000 ml; Site: right antecubital; oliveros 17:19 Follow up: IV Status: Completed infusion oliveros 15:42 Drug: Rocephin (cefTRIAXone) 1 grams Route: IV; Rate: calculated rate; Site: right oliveros antecubital; 17:19 Follow up: IV Status: Completed infusion oliveros 16:48 Drug: NS 0.9% (30 ml/kg) 30 ml/kg Route: IV; Rate: bolus; Site: left antecubital; oliveros 16:48 Drug: Magnesium Sulfate 1 grams Route: IVPB; Infused Over: 1 hrs; Site: right oliveros antecubital; 17:19 Follow up: IV Status: Completed infusion oliveros 16:48 Drug: Flomax (tamsulosin) 0.4 mg Route: PO; oliveros 17:18 Follow up: Response: No adverse reaction oliveros 18:57 Drug: Tylenol 1000 mg Route: PO; jl7 19:52 Drug: Demerol (meperidine) 25 mg Route: IVP; Site: left antecubital; sm5 19:52 Drug: Zofran (Ondansetron) 4 mg Route: IVP; Site: left antecubital; 5 Disposition Summary: 09/21/21 17:24 Transfer Ordered Transfer Location: [facility] rn Reason: Higher level of care rn Condition: Stable(09/21/21 17:24) rn Problem: new(09/21/21 17:24) rn Symptoms: have improved(09/21/21 17:24) rn Accepting Physician: (09/21/21 19:53) sm5 Diagnosis - Severe sepsis without septic shock(09/21/21 17:24) rn - UTI/ Urinary tract infection, site not specified(09/21/21 17:24) rn - Hydronephrosis with renal and ureteral calculous obstruction(09/21/21 17:24) rn Forms: - Medication Reconciliation Form rn - SBAR form rn Signatures: Dispatcher [employer] EDJoshua Wallis MD MD rn Leal, Jahala, RN RN Daniela Tapia tw5 Kellee Weiss, RN RN sm5 Marina Rodrigues, RN RN Beti Gaytan RN ll1 Corrections: (The following items were deleted from the chart) 17:23 16:47 Inpatient Admission rn rn 17:23 16:47 Maddy Randolph rn rn 17:23 16:47 Telemetry/MedSurg (Inpatient) rn rn 17:23 16:47 Stable rn rn 17:23 16:47 new rn rn 17:23 16:47 have improved rn rn 17:23 16:47 Standard rn rn 17:23 16:47 rn rn 17:23 16:47 Hydronephrosis with renal and ureteral calculous obstruction rn rn 17:23 16:47 Severe sepsis without septic shock rn rn 17:23 16:47 UTI/ Urinary tract infection, site not specified rn rn 19:53 17:24 rn sm5
[2021-09-21 16:51] LABS: Urine Blood 3+ (Negative); Urine Glucose Negative (Negative); Urine Protein 3+ (Negative); Urine Specific Gravity >=1.030 (1.005-1.030)
[2021-09-21] MEDS ORDERED: NA CHLORIDE 0.9% 2,000 ML ONE (17:03)
[2021-09-21] MEDS ORDERED: TAMSULOSIN 0.4 MG SR CAP ONE (17:03)
[2021-09-21] MEDS ORDERED: Magnesium Sulfate 2gm IVPB 2 G/50 ML BAG IV ONE (17:04)
[2021-09-21 17:35] LABS: Urine Amorphous Sediment 3+ /HPF (NONE SEEN); Urine Bacteria 20-50 /HPF (<20); Urine Mucus HEAVY /HPF (NONE SEEN)
[2021-09-21 17:38] LABS: Platelet Estimate DECR
[2021-09-21 17:39] LABS: Blood Morphology Comment NOT SEEN (NOT SEEN)
[2021-09-21] MEDS ORDERED: ACETAMINOPHEN 500 MG TAB ONE (18:58)
[2021-09-21 20:04] VITALS: BP 137/53; TEMP 99.7; O2SAT 97
--- NOTE | 2021-09-22 07:53 | EKG ---
Test Date: 2021-09-21 Test Time: 18:15:52 Geodetic Technician: JOSE MEASUREMENT RESULTS: Intervals: Rate: 99 GA: 152 QRSD: 78 QT: 540 QTc: 693 [place]: P: 66 GA: 152 QRS: 67 T: 58 INTERPRETIVE STATEMENTS: Sinus rhythm with premature atrial complexes Otherwise normal ECG Compared to ECG 11/26/2020 17:12:12 Atrial premature complex(es) now present Electronically Signed On 09-22-21 07:51:58 CDT by Clifford Jerry
== END 2021-09-21 19:53 | disposition short-term general hospital (02) ==
LOC: ER 14:19
DX: N39.0 Urinary tract infection, site not specified (principal); R65.20 Severe sepsis without septic shock; N13.2 Hydronephrosis with renal and ureteral calculous obstruction; F32.A Depression, unspecified; F41.9 Anxiety disorder, unspecified; Z20.822 Contact with and (suspected) exposure to COVID-19; Z88.5 Allergy status to narcotic agent
CPT/HCPCS: 93005; 87040 ×2; 87088; 85025; 87086; 36415; 87205; 83605 ×2; 87077 ×2; 87186 ×2; 80053; 76377; 74176; 51702; 99284; U0003; J2550; J2175 ×2; J3475; J7040; J7030 ×2; J2405 ×2; 81003; 81015

== ENCOUNTER 2022-06-06 13:33 | Emergency (ER) | payer OTHER ==
--- OUTSIDE RECORDS SUMMARY | 2022-06-06 14:08 | XMS REPORT | Continuity of Care Document ---
:1945 Author Organization [facility] t Address [address] [place] [address] Care Team Providers Name Role Phone Felder DO [facility] Primary Care Physician [phone] Jaziel Felder Attending Clinician Unavailable Leon VILLATORO, Osmar Weems Attending Clinician Leena Singleton OT Attending Clinician Unavailable Hector VILLATORO, Dottie Ware Attending Clinician Lorraine Mitchell RN Attending Clinician Unavailable Shannan Hung Attending Clinician Garrett Chávez MD Attending Clinician GARRETT CHÁVEZ Attending Clinician Unavailable Lottie Shirley Attending Clinician Valentin Attending Clinician Unavailable Fam Attending Clinician Unavailable AUSTIN Attending Clinician Unavailable Margarita Quintero Attending Clinician [phone] MILLER COLEMAN Attending Clinician Unavailable Sumanth Mc Attending Clinician [phone] Brent VILLATORO, Kj Ruelas Attending Clinician [phone] Maribell Suresh MD Attending Clinician Randy VILLATORO, Nanda Nkaniu Attending Clinician KJ DIEHL Attending Clinician Unavailable MARIBELL SURESH Attending Clinician Unavailable Da VILLATORO, Jacob Garcia Attending Clinician Sumanth Mc MD Attending Clinician Kautz_S Attending Clinician Unavailable OSMAR ROUSE Admitting Clinician Unavailable GARRETT CHÁVEZ Admitting Clinician Unavailable Valentin Admitting Clinician Unavailable Fam Admitting Clinician Unavailable CURRApollo_S Admitting Clinician Unavailable MILLER COLEMAN Admitting Clinician Unavailable NANDA DUBON Admitting Clinician Unavailable Uriel_S Admitting Clinician Unavailable Payers Payer Name Policy Type Policy Effective Date Expiration Date Sour ce Number [facility] [id number] 2020 (MEDICARE 00:00:00 REPLACEMENT HMO) [place] [id number] 2020 [facility] 00:00:00 - [facility] MEDICARE NOVITAS MB [id number] 2013 [facility] 00:[facility] - [facility] MEDICARE NOVITAS [id number] 2013 [facility] 00:00:[facility] - [place] [id number] 2020 [facility] 00:00:[facility] - [place] [id number] 2020 [facility] 00:00:00 - [facility] MEDICARE NOVITAS MB [id number] 2013 [facility] 00:00:[facility] - [place] [id number] 2020 [facility] 00:00:00 - [facility] MEDICARE NOVITAS MB [id number] 2013 [facility] 00:00:00 - [facility] MEDICARE NOVITAS [id number] 2013 [facility] 00:00:00 - [place] [address] [id number] [facility] - [facility] MEDICARE NOVITAS MB [id number] 2013 [facility] 00:00:00 - [facility] [id number] [facility] [id number] [facility] MEDICARE NOVITAS MB [id number] 2013 [facility] 00[facility]00:00 - [facility] Problems Condition Condition Condition Status Onset Resolution Last Treating Co mments Source Name Details Category Date Date Treatment Clinician Date Fracture, Fracture, Disease Active 2021-04 Overview: Methodi Nely Mckay, 1-[address] left, left, 00:00: g of this Hospita closed closed 00 note l might be different from the original. Added automatic ally from request for surgery [id number] Left Left Disease Active 2021-04 Overview: Method i carpal carpal 05-[address] tunnel tunnel 00:00: g of this Hospita syndrome syndrome 00 note l might be different from the original. Added automatic ally from request for surgery [id number] Severe Severe Disease [facility] Right Right Disease Active [facility] ureteral [facility]teral [facility] calculus calculus 00:00: Medica l 00 Center Acute UTI Acute UTI Disease Active [facility] (urinary (urinary [facility] tract tract 00:00: Medical infection) infection) 00 Ce nter No known No known Disease Unive rs active active ity of problems problems [facility] Gastro-eso Gastro-eso Problem C ommon phageal phageal Spirit reflux reflux - [facility]I disease disease St without without [facility] esophagiti esophagiti Me dical s s [place] [id number] Vitamin D Problem Comm on deficiency Spirit - [facility] Restless Restless Problem Commo n legs leg Spirit syndrome syndrome - [facility] Malaise Malaise Problem Common and and Spirit fatigue fatigue - [facility] Essential Benign Problem Common hypertensi essential Spi rit on HTN - [facility] 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 - [facility] depressive [facility] [id number] Current Problem Common moderate Spirit episode of - CHI major [facility] disorder Medical without Center prior episode Postural Postural Problem Commo n vertigo vertigo Spirit - [facility] [id number] Tear of Problem Commo n right Spirit rotator - CHI cuff, unspecie [facility] d tear Medical extent, Center unspecifie d whether traumatic Sciatica Low back Problem Commo n pain with Spirit left-sided - [facility], [facility] Medical pain Center laterality , unspecifie d chronicity [id number] Daytime Problem Comm on 00 somnolence Spirit - [facility] [id number] Mixed Problem Common hyperlipid Spirit emia - [facility] [id number] Vitamin Problem Commo n B12 Spirit deficiency [facility] [id number] Constipati Problem Com mon on, Spirit unspecifie - CHI d constipati [facility] on type [facility] [id number] Insomnia, Problem Com mon unspecifie Spirit d type - [facility] [id number] Body mass Problem Com mon index [facility] [BMI] - [facility] 34.0-34.9[facility] [id number] Other Problem Common obesity 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 [facility] [id number] Status Problem Common post Spirit cystoscopy - [facility] with ureteral [facility] stent Medical placement Center Carpal Carpal Problem Common tunnel tunnel Spirit syndrome syndrome - [facility] Allergies, Adverse Reactions, Alerts Allergy Allergy Status Severity Reaction(s) Onset Inactive Treating Comm ents Source Name Type Date Date Clinician Acetamin Propensi Active GI 2021-04 Method i ophen-Co ty to Intolerance 05-09 st deine adverse 00:00: Hospita reaction 00 l s to drug Codeine Propensi Active Rash [facility] ty to 09-21 [facility] adverse 00:00: Medical reaction 00 Center s Morphine Drug Active Itching [facility] Allergy [facility]25 [facility] 00:[facility]: Medical 00 [place] MORPHINE Allergy Active Itching [facility] 5[facility]25 [facility] 00:[facility] Medical 00 Center CODEINE Allergy Active Low Rash [facility] 5[facility] 00:[facility]: Medical 00 [place] Morphine Morphine Active rash [facility] NO KNOWN Allergy Active [facility] NO KNOWN Drug Active Univers ALLERGIE Class ity of [facility] Medical Branch Family History Family Member Diagnosis Comments Start Date Stop Date Source Natural mother Heart disease [facility] Natural mother Parkinsonism [facility] Social History Social Habit Start Date Stop Date Quantity Comments Source [facility] of [facility] - Tobacco Use [facility] SDOH [facility] Alcohol Std Medical Cente r Drinks History SDOH [facility] Alcohol Binge Medical Eren ter History SDOH [facility] Alcohol Comment Medical C enter History SDOH [facility] Transport Non-Med Medical Center Alcohol intake 2022-05-18 2022-05-18 [facility] 00:00:00 00:00:00 non-drinker (finding) Exposure to 2022-02-19 2022-03-01 Not sure University SARS-CoV-2 00:00:00 17:44:00 [facility] (event) Branch History SDOH 2021-09-22 2021-09-[address] [facility] Transport Med 00:00:00 00:00:[address] [facility] 2021-09-22 2021-09-[address] [facility] Housing Unable to 00:00:00 00:00:00 Medical Center Pay History [facility] 2021-09-22 2021-09-[address] [facility] Housing Places 00:00:00 00:00:00 Medical Ce nter Lived History [facility] 2021-09-22 2021-09-[address] [facility] Housing Homeless 00:00:00 00:00:00 Medical Center Last Year History [facility] 2021-09-21 2021-09-[address] [facility] Alcohol Frequency 00:00:00 00:00:00 Medical Center Tobacco use and 2021-09-21 2021-09-[address] [facility] exposure 00:00:00 00:00:00 Medical Center Sex Assigned At [address] [facility] 00:00:00 00:00:00 Medical Center Smoking Status Start Date Stop Date Source Tobacco smoking consumption [facility] Branch Never smoked [facility] Medications Ordered Filled Start Stop Current Ordering Indication Dosage Frequency Signature Comments Components Source Medication Medication Date Date Medication? Clinician (SIG) Name Name Vitamin B12 Vitamin B12 2021-04 No 1000ug Common (Cyanocobal (Cyanocobal 2-15 S pirit rivera) rivera) 00:00: - [facility] [address] [facility] Vitamin B12 Vitamin B12 2021-04 No 1000ug Common (Cyanocobal (Cyanocobal 2-15 S pirit rivera) rivera) 00:00: - [facility] [address] [facility] Vitamin B12 Vitamin B12 2021-04 No 1000ug Common (Cyanocobal (Cyanocobal 2-15 S pirit rivera) rivera) 00:00: - [facility]I [address] [facility] Vitamin B12 Vitamin B12 2021-04 No 1000ug Common (Cyanocobal (Cyanocobal 2-01 S pirit rivera) rivera) 00:00: - [facility] [address] [facility] Vitamin B12 Vitamin B12 2021-04 No 1000ug Common (Cyanocobal (Cyanocobal 2-01 S pirit rivera) rivera) 00:00: - [facility]I [address] [facility] Vitamin B12 Vitamin B12 2021-04 No 1000ug Common (Cyanocobal (Cyanocobal 2-01 S pirit rivera) rivera) 00:00: - [facility] [address] [facility] Vitamin B12 Vitamin B12 2021-04 No 1000ug Common (Cyanocobal (Cyanocobal 2-01 S pirit rivera) rivera) 00:00: - [facility]I [address] [facility] celecoxib 2021-04 Yes celecoxib Met hodi (CeleBREX) 1-[address] 200 MG 15:38: capsule Hospita capsule 39 TAKE 1 l CAPSULE BY MOUTH EVERY DAY WITH FOOD citalopram 2021-04 Yes citalopram M ethodi (CeleXA) 40 1-[address] MG tablet 15:38: tablet Hospit a 39 l HYDROcodone 2021-04 Yes hydrocodon Methodi -acetaminop 1-[address] hen (NORCO) 15:38: mg-acetami Hospita 7.5-325 mg 39 nophen 325 l per tablet mg tablet TAKE 1 TABLET BY MOUTH EVERY 12 HOURS NEEDED FOR PAIN rOPINIRole 2021-04 Yes ropinirole M ethodi (REQUIP) 4 1-[address] MG tablet 15:38: tablet Hospit a 39 l albuterol 2021-04- No albuterol Me thodi (PROAIR 05-07 11-[address] HFA) 90 14:34: 00:00 HFA 90 Hospita mcg/actuati 43 :00 mcg/actuat l on inhaler ion aerosol inhaler INHALE 2 PUFFS BY MOUTH EVERY 6 HOURS NEEDED FOR COUGH OR WHEEZING OR SHORTNESS OF BREATH acetaminoph 2021-04- No 82058 1{tbl} Q6H Take 1 Methodi en-codeine 05-07 11-[address] (TYLENOL 00:00: 05:59 mouth Hospita WITH 00 :00 every 6 l CODEINE #3) (six) 300-30 mg hours as per tablet needed for moderate pain for up to 5 days .acute pain. FENTanyl PF 2021-04 No 50ug 50 mcg, Un eve (SUBLIMAZE 05-02 Intramuscu it y of (PF)) 00:00: 00:04 lar, ONCE, [place] injection 00 :00 1 dose, On Medi brad 50 mcg Wed Branch 03/01/22 at 1900, STAT HYDROcodone 2021-04 No 1{tbl} 1 tablet, Univers -acetaminop 05-01 Oral, ity of hen (NORCO 23:00: 00:04 ONCE, 1 Adis as 5) 5-325 mg 00 :00 dose, On Medi brad tablet 1 Wed Branch tablet 03/01/22 at 1800, PRIYA HYDROcodone 2021-04 No [id number] 1{tbl} Take 1 U nivers -acetaminop 05-01 tablet by it y of hen 5-325 00:00: 05:59 mouth [place] mg tablet 00 :00 every 6 Medical (six) Branch hours as needed for Pain (scale 4-6) or Pain (scale 7-10) for up to 20 days. Indication s: acute pain Vitamin B12 Vitamin B12 2021-04 No 1000ug Common (Cyanocobal (Cyanocobal 0-27 S pirit rivera) rivera) 00:00: - [facility] Vitamin B12 Vitamin B12 2021-04 No 1000ug Common (Cyanocobal (Cyanocobal 0-27 S pirit rivera) rivera) 00:00: - [facility] Vitamin B12 Vitamin B12 2021-04 No 1000ug Common (Cyanocobal (Cyanocobal 0-27 S pirit rivera) rivera) 00:00: - [facility] Vitamin B12 Vitamin B12 2021-04 No 1000ug Common (Cyanocobal (Cyanocobal 0-27 S pirit rivera) rivera) 00:00: - [facility] [address] [facility] Vitamin B12 Vitamin B12 2021-04 No 1000ug Common (Cyanocobal (Cyanocobal 0-27 S pirit rivera) rivera) 00:00: - [facility]I [address] [facility] Vitamin B12 Vitamin B12 2021-04 No 1000ug Common (Cyanocobal (Cyanocobal 0-27 S pirit rivera) rivera) 00:00: - [facility] [address] [facility] Vitamin B12 Vitamin B12 2021-04 No 1000ug Common (Cyanocobal (Cyanocobal 0-14 S pirit rivera) rivera) 00:00: - [facility] [address] [facility] Vitamin B12 Vitamin B12 2021-04 No 1000ug Common (Cyanocobal (Cyanocobal 0-14 S pirit rivera) rivera) 00:00: - [facility] [address] [facility] Vitamin B12 Vitamin B12 2021-04 No 1000ug Common (Cyanocobal (Cyanocobal 0-14 S pirit rivera) rivera) 00:00: - [facility] [address] [facility] Vitamin B12 Vitamin B12 2021-04 No 1000ug Common (Cyanocobal (Cyanocobal 0-14 S pirit rivera) rivera) 00:00: - [facility] [address] [facility] Vitamin B12 Vitamin B12 2021-04 No 1000ug Common (Cyanocobal (Cyanocobal 0-14 S pirit rivera) rivera) 00:00: - [facility]I [address] [facility] Vitamin B12 Vitamin B12 2021-04 No 1000ug Common (Cyanocobal (Cyanocobal 0-14 S pirit rivera) rivera) 00:00: - [facility] [address] [facility] Vitamin B12 Vitamin B12 2021-04 No 1000ug Common (Cyanocobal (Cyanocobal 0-14 S pirit rivera) rivera) 00:00: - [facility] [address] [facility] Vitamin B12 Vitamin B12 2021-04 No 1000ug Common (Cyanocobal (Cyanocobal 0-14 S pirit rivera) rivera) 00:00: - [facility] [address] [facility] Sulfamethox Sulfamethox 2021-042- No 1{table BID Sulfametho azole-Trime azole-Trime 0-14 10-24 t} xazole-Tri thoprim thoprim 00:00: 00:00 methoprim 800-160 MG 800-160 MG 00 :00 800-160 MG Sulfamethox Sulfamethox 2021-04- No 1{table BID Sulfametho azole-Trime azole-Trime 0-14 -24 t} xazole-Tri thoprim thoprim 00:00: 00:00 methoprim 800-160 MG 800-160 MG 00 :00 800-160 MG Pyridium Pyridium 2021-04- No 1{table TID Pyridium 200 MG 200 MG 0-14 -16 t_after 200 MG 00:00: 00:00 _meals} 00 :00 Pyridium Pyridium 2021-04- No 1{table TID Pyridium 200 MG 200 MG 0-14 -16 t_after 200 MG 00:00: 00:00 _meals} 00 :00 albuterol 2021-04 Yes albuterol Met hodi (PROAIR 0-[address] HFA) 90 15:27: HFA 90 Hospita mcg/actuati 55 mcg/actuat l on inhaler ion aerosol inhaler INHALE 2 PUFFS BY MOUTH EVERY 6 HOURS NEEDED FOR COUGH OR WHEEZING OR SHORTNESS OF BREATH celecoxib 2021-04 Yes celecoxib Met hodi (CeleBREX) 0-[address] 200 MG 15:27: capsule Hospita capsule 55 TAKE 1 l CAPSULE BY MOUTH EVERY DAY WITH FOOD citalopram 2021-04 Yes citalopram M ethodi (CeleXA) 40 0-[address] MG tablet 15:27: tablet Hospit a 55 l HYDROcodone 2021-04 Yes hydrocodon Methodi -acetaminop 0-[address] hen (NORCO) 15:27: mg-acetami Hospita 7.5-325 mg 55 nophen 325 l per tablet mg tablet TAKE 1 TABLET BY MOUTH EVERY 12 HOURS NEEDED FOR PAIN rOPINIRole 2021-04 Yes ropinirole M ethodi (REQUIP) 4 0-[address] MG tablet 15:27: tablet Hospit a 55 l gabapentin 2021-04 Yes 100mg Q.[id number] Take 1 Methodi (Neurontin) 0-[id number] 100 mg 00:00: 3D (100 mg Hospita capsule 00 total) by l mouth 3 (three) times a day. gabapentin 2021-04- No 100mg Q.[id number] Take 1 Methodi (Neurontin) 0-[id number] 100 mg 00:00: 00:00 3D (100 mg Hospita capsule 00 :00 total) by l mouth 3 (three) times a day. Vitamin B12 Vitamin B12 2021-0 No 1000ug Common (Cyanocobal (Cyanocobal 9-28 S pirit rivera) rivera) 00:00: - [facility] [address] [facility] Vitamin B12 Vitamin B12 2021-0 No 1000ug Common (Cyanocobal (Cyanocobal 9-28 S pirit rivera) rivera) 00:00: - [facility] [address] [facility] Vitamin B12 Vitamin B12 2021-0 No 1000ug Common (Cyanocobal (Cyanocobal 9-28 S pirit rivera) rivera) 00:00: - [facility] [address] [facility] Vitamin B12 Vitamin B12 2021-0 No 1000ug Common (Cyanocobal (Cyanocobal 9-28 S pirit rivera) rivera) 00:00: - [facility] [address] [facility] Vitamin B12 Vitamin B12 2021-0 No 1000ug Common (Cyanocobal (Cyanocobal 9-28 S pirit rivera) rivera) 00:00: - [facility] [address] [facility] Vitamin B12 Vitamin B12 2-0 No 1000ug Common (Cyanocobal (Cyanocobal 9-28 S pirit rivera) rivera) 00:00: - [facility] [address] [facility] Vitamin B12 Vitamin B12 2021-0 No 1000ug Common (Cyanocobal (Cyanocobal 9-28 S pirit rivera) rivera) 00:00: - [facility] [address] [facility] Vitamin B12 Vitamin B12 2-0 No 1000ug Common (Cyanocobal (Cyanocobal 9-28 S pirit rivera) rivera) 00:00: - [facility] [address] [facility] Vitamin B12 Vitamin B12 2-0 No 1000ug Common (Cyanocobal (Cyanocobal 9-28 S pirit rivera) rivera) 00:00: - [facility] [address] [facility] Vitamin B12 Vitamin B12 2022-0 No 1000ug Common (Cyanocobal (Cyanocobal 9-28 S pirit rivera) rivera) 00:00: - [facility] [address] [facility] Vitamin B12 Vitamin B12 2-0 No 1000ug Common (Cyanocobal (Cyanocobal 9-14 S pirit rivera) rivera) 00:00: - [facility] [address] [facility] Vitamin B12 Vitamin B12 2-0 No 1000ug Common (Cyanocobal (Cyanocobal 9-14 S pirit rivera) rivera) 00:00: - [facility] [address] [facility] Vitamin B12 Vitamin B12 2021-0 No 1000ug Common (Cyanocobal (Cyanocobal 9-14 S pirit rivera) rivera) 00:00: - [facility] [address] [facility] Vitamin B12 Vitamin B12 2021-0 No 1000ug Common (Cyanocobal (Cyanocobal 9-14 S pirit rivera) rivera) 00:00: - [facility] [address] [facility] Vitamin B12 Vitamin B12 2021-0 No 1000ug Common (Cyanocobal (Cyanocobal 9-14 S pirit rivera) rivera) 00:00: - [facility] [address] [facility] Vitamin B12 Vitamin B12 2021-0 No 1000ug Common (Cyanocobal (Cyanocobal 9-14 S pirit rivera) rivera) 00:00: - [facility] [address] [facility] Vitamin B12 Vitamin B12 2021-0 No 1000ug Common (Cyanocobal (Cyanocobal 9-14 S pirit rivear) rivera) 00:00: - [facility] [address] [facility] Vitamin B12 Vitamin B12 2-0 No 1000ug Common (Cyanocobal (Cyanocobal 9-14 S pirit rviera) rivera) 00:00: - [facility] [address] [facility] Vitamin B12 Vitamin B12 2-0 No 1000ug Common (Cyanocobal (Cyanocobal 9-14 S pirit rivera) rivera) 00:00: - [facility] [address] [facility] Vitamin B12 Vitamin B12 2-0 No 1000ug Common (Cyanocobal (Cyanocobal 9-14 S pirit rivera) rivera) 00:00: - [facility] [address] [facility] Vitamin B12 Vitamin B12 2022-0 No 1000ug Common (Cyanocobal (Cyanocobal 9-14 S pirit rivera) rivera) 00:00: - [facility] [address] [facility] Vitamin B12 Vitamin B12 2-0 No 1000ug Common (Cyanocobal (Cyanocobal 9-14 S pirit rivera) rivera) 00:00: - [facility] [address] [facility] Vitamin B12 Vitamin B12 2-0 No 1000ug Common (Cyanocobal (Cyanocobal 8-30 S pirit rivera) rivera) 00:00: - [facility] [address] [facility] Vitamin B12 Vitamin B12 2-0 No 1000ug Common (Cyanocobal (Cyanocobal 8-30 S pirit rivera) rivera) 00:00: - [facility] [address] [facility] Vitamin B12 Vitamin B12 2-0 No 1000ug Common (Cyanocobal (Cyanocobal 8-30 S pirit rivera) rivera) 00:00: - [facility] [address] [facility] Vitamin B12 Vitamin B12 2-0 No 1000ug Common (Cyanocobal (Cyanocobal 8-30 S pirit rivera) rivera) 00:00: - [facility] [address] [facility] Vitamin B12 Vitamin B12 2-0 No 1000ug Common (Cyanocobal (Cyanocobal 8-30 S pirit rivera) rivera) 00:00: - [facility] [address] [facility] Vitamin B12 Vitamin B12 2-0 No 1000ug Common (Cyanocobal (Cyanocobal 8-30 S pirit rivera) rivera) 00:00: - [facility] [address] [facility] Vitamin B12 Vitamin B12 2021-0 No 1000ug Common (Cyanocobal (Cyanocobal 8-30 S pirit rivera) rivera) 00:00: - [facility] [address] [facility] Vitamin B12 Vitamin B12 2-0 No 1000ug Common (Cyanocobal (Cyanocobal 8-30 S pirit rivera) rivera) 00:00: - [facility] [address] [facility] Vitamin B12 Vitamin B12 2-0 No 1000ug Common (Cyanocobal (Cyanocobal 8-30 S pirit rivera) rivera) 00:00: - [facility] [address] [facility] Vitamin B12 Vitamin B12 2-0 No 1000ug Common (Cyanocobal (Cyanocobal 8-30 S pirit rivera) rivera) 00:00: - [facility] [address] [facility] Vitamin B12 Vitamin B12 2022-0 No 1000ug Common (Cyanocobal (Cyanocobal 8-30 S pirit rivera) rivera) 00:00: - [facility] [address] [facility] Vitamin B12 Vitamin B12 2-0 No 1000ug Common (Cyanocobal (Cyanocobal 8-30 S pirit rivera) rivera) 00:00: - [facility] [address] [facility] Vitamin B12 Vitamin B12 2021-0 No 1000ug Common (Cyanocobal (Cyanocobal 8-30 S pirit rivera) rivera) 00:00: - [facility] [address] [facility] Vitamin B12 Vitamin B12 2021-0 No 1000ug Common (Cyanocobal (Cyanocobal 8-30 S pirit rivera) rivera) 00:00: - [facility] [address] [facility] Vitamin B12 Vitamin B12 2021-0 No 1000ug Common (Cyanocobal (Cyanocobal 8-15 S pirit rivera) rivera) 00:00: - [facility] [address] [facility] Vitamin B12 Vitamin B12 2021-0 No 1000ug Common (Cyanocobal (Cyanocobal 8-15 S pirit rivera) rivera) 00:00: - [facility] [address] [facility] Vitamin B12 Vitamin B12 2021-0 No 1000ug Common (Cyanocobal (Cyanocobal 8-15 S pirit rivera) rivera) 00:00: - [facility] [address] [facility] Vitamin B12 Vitamin B12 2021-0 No 1000ug Common (Cyanocobal (Cyanocobal 8-15 S pirit rivera) rivera) 00:00: - [facility] [address] [facility] Vitamin B12 Vitamin B12 2021-0 No 1000ug Common (Cyanocobal (Cyanocobal 8-15 S pirit rivera) rivera) 00:00: - [facility] [address] [facility] Vitamin B12 Vitamin B12 2-0 No 1000ug Common (Cyanocobal (Cyanocobal 8-15 S pirit rivera) rivera) 00:00: - [facility] [address] [facility] Vitamin B12 Vitamin B12 2-0 No 1000ug Common (Cyanocobal (Cyanocobal 8-15 S pirit rivera) rivera) 00:00: - [facility] [address] [facility] Vitamin B12 Vitamin B12 2-0 No 1000ug Common (Cyanocobal (Cyanocobal 8-15 S pirit rivera) rivera) 00:00: - [facility] [address] [facility] Vitamin B12 Vitamin B12 2022-0 No 1000ug Common (Cyanocobal (Cyanocobal 8-15 S pirit rivera) rivera) 00:00: - [facility] [address] [facility] Vitamin B12 Vitamin B12 2-0 No 1000ug Common (Cyanocobal (Cyanocobal 8-15 S pirit rivera) rivera) 00:00: - [facility] [address] [facility] Vitamin B12 Vitamin B12 2021-0 No 1000ug Common (Cyanocobal (Cyanocobal 8-15 S pirit rivera) rivera) 00:00: - [facility] [address] [facility] Vitamin B12 Vitamin B12 2-0 No 1000ug Common (Cyanocobal (Cyanocobal 8-15 S pirit rivera) rivera) 00:00: - [facility] [address] [facility] Vitamin B12 Vitamin B12 2021-0 No 1000ug Common (Cyanocobal (Cyanocobal 8-15 S pirit rivera) rivera) 00:00: - [facility] [address] [facility] Vitamin B12 Vitamin B12 2021-0 No 1000ug Common (Cyanocobal (Cyanocobal 8-15 S pirit rivera) rivera) 00:00: - [facility] [address] [facility] Vitamin B12 Vitamin B12 2021-0 No 1000ug Common (Cyanocobal (Cyanocobal 8-01 S pirit rivera) rivera) 00:00: - [facility] [address] [facility] Vitamin B12 Vitamin B12 2021-0 No 1000ug Common (Cyanocobal (Cyanocobal 8-01 S pirit rivera) rivera) 00:00: - [facility] [address] [facility] Vitamin B12 Vitamin B12 2021-0 No 1000ug Common (Cyanocobal (Cyanocobal 8-01 S pirit rivera) rivera) 00:00: - [facility] [address] [facility] Vitamin B12 Vitamin B12 2-0 No 1000ug Common (Cyanocobal (Cyanocobal 8-01 S pirit rivera) rivera) 00:00: - [facility] [address] [facility] Vitamin B12 Vitamin B12 2-0 No 1000ug Common (Cyanocobal (Cyanocobal 8-01 S pirit rivera) rivera) 00:00: - [facility] [address] [facility] Vitamin B12 Vitamin B12 2-0 No 1000ug Common (Cyanocobal (Cyanocobal 8-01 S pirit rivera) rivera) 00:00: - [facility] [address] [facility] Vitamin B12 Vitamin B12 2022-0 No 1000ug Common (Cyanocobal (Cyanocobal 8-01 S pirit rivera) rivera) 00:00: - [facility] [address] [facility] Vitamin B12 Vitamin B12 2-0 No 1000ug Common (Cyanocobal (Cyanocobal 8-01 S pirit rivera) rivera) 00:00: - [facility] [address] [facility] Vitamin B12 Vitamin B12 2-0 No 1000ug Common (Cyanocobal (Cyanocobal 8-01 S pirit rivera) rivera) 00:00: - [facility] [address] [facility] Vitamin B12 Vitamin B12 2022-0 No 1000ug Common (Cyanocobal (Cyanocobal 8-01 S pirit rivera) rivera) 00:00: - [facility] [address] [facility] Vitamin B12 Vitamin B12 2022-0 No 1000ug Common (Cyanocobal (Cyanocobal 8-01 S pirit rivera) rivera) 00:00: - [facility] [address] [facility] Vitamin B12 Vitamin B12 2-0 No 1000ug Common (Cyanocobal (Cyanocobal 8-01 S pirit rivera) rivera) 00:00: - [facility] [address] [facility] Vitamin B12 Vitamin B12 2022-0 No 1000ug Common (Cyanocobal (Cyanocobal 8-01 S pirit rivera) rivera) 00:00: - [facility] [address] [facility] Vitamin B12 Vitamin B12 2-0 No 1000ug Common (Cyanocobal (Cyanocobal 8-01 S pirit rivera) rivera) 00:00: - [facility] [address] [facility] Vitamin B12 Vitamin B12 2-0 No 1000ug Common (Cyanocobal (Cyanocobal 8-01 S pirit rivera) rivera) 00:00: - [facility] [address] [facility] Vitamin B12 Vitamin B12 2022-0 No 1000ug Common (Cyanocobal (Cyanocobal 8-01 S pirit rivera) rivera) 00:00: - [facility] [address] [facility] Vitamin B12 Vitamin B12 2022-0 No 1000ug Common (Cyanocobal (Cyanocobal 6-09 S pirit rivera) rivera) 00:00: - [facility] [address] [facility] Vitamin B12 Vitamin B12 2022-0 No 1000ug Common (Cyanocobal (Cyanocobal 6-09 S pirit rivera) rivera) 00:00: - [facility] [address] [facility] Vitamin B12 Vitamin B12 2022-0 No 1000ug Common (Cyanocobal (Cyanocobal 6-09 S pirit rivera) rivera) 00:00: - [facility] [address] [facility] Vitamin B12 Vitamin B12 2022-0 No 1000ug Common (Cyanocobal (Cyanocobal 6-09 S pirit rivera) rivera) 00:00: - [facility] [address] [facility] Vitamin B12 Vitamin B12 2022-0 No 1000ug Common (Cyanocobal (Cyanocobal 6-09 S pirit rivera) rivera) 00:00: - [facility] [address] [facility] Vitamin B12 Vitamin B12 2022-0 No 1000ug Common (Cyanocobal (Cyanocobal 6-09 S pirit rivera) rivera) 00:00: - [facility] [address] [facility] Vitamin B12 Vitamin B12 2022-0 No 1000ug Common (Cyanocobal (Cyanocobal 6-09 S pirit rivera) rivera) 00:00: - [facility] [address] [facility] Vitamin B12 Vitamin B12 2-0 No 1000ug Common (Cyanocobal (Cyanocobal 6-09 S pirit rivera) rivera) 00:00: - [facility] [address] [facility] Vitamin B12 Vitamin B12 2022-0 No 1000ug Common (Cyanocobal (Cyanocobal 6-09 S pirit rivera) rivera) 00:00: - [facility] [address] [facility] Vitamin B12 Vitamin B12 2022-0 No 1000ug Common (Cyanocobal (Cyanocobal 6-09 S pirit rivera) rivera) 00:00: - [facility] [address] [facility] Vitamin B12 Vitamin B12 2-0 No 1000ug Common (Cyanocobal (Cyanocobal 6-09 S pirit rivera) rivera) 00:00: - [facility] [address] [facility] Vitamin B12 Vitamin B12 2022-0 No 1000ug Common (Cyanocobal (Cyanocobal 6-09 S pirit rivera) rivera) 00:00: - [facility] [address] [facility] Vitamin B12 Vitamin B12 2022-0 No 1000ug Common (Cyanocobal (Cyanocobal 6-09 S pirit rivera) rivera) 00:00: - [facility] [address] [facility] Vitamin B12 Vitamin B12 2022-0 No 1000ug Common (Cyanocobal (Cyanocobal 6-09 S pirit rivera) rivera) 00:00: - [facility] [address] [facility] Vitamin B12 Vitamin B12 2022-0 No 1000ug Common (Cyanocobal (Cyanocobal 6-09 S pirit rivera) rivera) 00:00: - [facility] [address] [facility] Vitamin B12 Vitamin B12 2022-0 No 1000ug Common (Cyanocobal (Cyanocobal 6-09 S pirit rivera) rivera) 00:00: - [facility] [address] [facility] Vitamin B12 Vitamin B12 2021-0 No 1000ug Common (Cyanocobal (Cyanocobal 6-09 S pirit rivera) rivera) 00:00: - [facility] [address] [facility] Vitamin B12 Vitamin B12 2021-0 No 1000ug Common (Cyanocobal (Cyanocobal 6-09 S pirit rivera) rivera) 00:00: - [facility] [address] [facility] Ondansetron Ondansetron 0 No 1{table Ondansetro 4 MG 4 MG 6-01 t_on n 4 MG 00:00: e_tongu 00 e_and_a llow_to _dissol ve} Ondansetron Ondansetron 2021-0 No 1{table Ondansetro 4 MG 4 MG 6-01 t_on n 4 MG 00:00: e_tongu 00 e_and_a llow_to _dissol ve} Ondansetron Ondansetron 2021-0 No 1{table Ondansetro 4 MG 4 MG 6-01 t_ n 4 MG 00:00: e_tongu 00 e_and_a llow_to _dissol ve} Ondansetron Ondansetron 2021-0 No 1{table Ondansetro 4 MG 4 MG 6-01 t_ n 4 MG 00:00: e_tongu 00 e_and_a llow_to _dissol ve} Ondansetron Ondansetron 2021-0 No 1{table Ondansetro 4 MG 4 MG 6-01 t_on n 4 MG 00:00: e_tongu 00 e_and_a llow_to _dissol ve} Ondansetron Ondansetron 2021-0 No 1{table Ondansetro 4 MG 4 MG 6-01 t_onth n 4 MG 00:00: e_tongu 00 e_and_a llow_to _dissol ve} Ondansetron Ondansetron 2021-0 No 1{table Ondansetro 4 MG 4 MG 6-01 t_on n 4 MG 00:00: e_tongu 00 e_and_a llow_to _dissol ve} Ondansetron Ondansetron 2021-0 No 1{table Ondansetro 4 MG 4 MG 6-01 t_ n 4 MG 00:00: e_tongu 00 e_and_a llow_to _dissol ve} Ondansetron Ondansetron 2021-0 No 1{table Ondansetro 4 MG 4 MG 6-01 t_ n 4 MG 00:00: e_tongu 00 e_and_a llow_to _dissol ve} Ondansetron Ondansetron 2021-0 No 1{table Ondansetro 4 MG 4 MG 6- t n 4 MG 00:00: e_tongu 00 e_and_a llow_to _dissol ve} Ondansetron Ondansetron 2021-0 No 1{table Ondansetro 4 MG 4 MG 6- t n 4 MG 00:00: e_tongu 00 e_and_a llow_to _dissol ve} Ondansetron Ondansetron 2021-0 No 1{table Ondansetro 4 MG 4 MG 6- t n 4 MG 00:00: e_tongu 00 e_and_a llow_to _dissol ve} Ondansetron Ondansetron 2-0 No 1{table Ondansetro 4 MG 4 MG 6-01 t n 4 MG 00:00: e_tongu 00 e_and_a llow_to _dissol ve} Ondansetron Ondansetron 2-0 No 1{table Ondansetro 4 MG 4 MG 6-01 t_on n 4 MG 00:00: e_tongu 00 e_and_a llow_to _dissol ve} Ondansetron Ondansetron 2-0 No 1{table Ondansetro 4 MG 4 MG 6-01 t n 4 MG 00:00: e_tongu 00 e_and_a llow_to _dissol ve} Ondansetron Ondansetron No 1{table Ondansetro 4 MG 4 MG 6-01 t_ n 4 MG 00:00: e_tong e_and_a llow_to _dissol ve} Ondansetron Ondansetron No 1{table Ondansetro 4 MG 4 MG 6- t_ n 4 MG 00:00: e e_and_a llow_to _dissol ve} Ondansetron Ondansetron No 1{table Ondansetro 4 MG 4 MG 6- t_ n 4 MG 00:00: e e_and_a llow_to _dissol ve} Ondansetron Ondansetron No 1{table Ondansetro 4 MG 4 MG 6- t_ n 4 MG 00:00: e e_and_a llow_to _dissol ve} rOPINIRole Yes 4mg QD Take [address] [facility] (REQUIP) 4 5-28 by mouth [facility] tablet 13:08: nightly. [facility] celecoxib Yes 200mg QD Take [address] [facility] (CeleBREX) 5-28 mg by [facility] 200 MG 13:08: mouth Medical capsule 51 daily. [place] HYDROcodone Yes 1{tbl} Take [address] [facility] -acetaminop 5-28 tablet by Chanel yin (NORCO 13:08: mouth Medica l 7.5-325) 51 every 12 Center 7.5-325 mg (twelve) per tablet hours as needed for Pain. sulfamethox 2021- No 160mg{t Q.5D Take [address] [facility] azole-trime 5-28 06-04 rimetho tablet Sofia kenicole thoprim 00:00: 23:59 prim} (160 mg of Me dical (BACTRIM 00 :00 trimethopr Cente r DS) 800-160 im total) mg per by mouth 2 tablet (two) times daily for 7 days. nitrofurant 2021- No bacterial 100mg Q.5D Take [address] [facility] oin 5-25 05-25 urinary mg by Ivy (MACRODANTI 23:00: 00:00 tract mouth 2 M edical N) 100 MG 19 :00 infection (two) Cent er capsule times daily. Vitamin B12 Vitamin B12 2021-0 No 1000ug Common (Cyanocobal (Cyanocobal 5-19 S pirit rivera) rivera) 00:00: - [facility] [address] [facility] Vitamin B12 Vitamin B12 2021-0 No 1000ug Common (Cyanocobal (Cyanocobal 5-19 S pirit rivera) rivera) 00:00: - [facility] [address] [facility] Vitamin B12 Vitamin B12 2021-0 No 1000ug Common (Cyanocobal (Cyanocobal 5-19 S pirit rivera) rivera) 00:00: - [facility] [address] [facility] Vitamin B12 Vitamin B12 2021-0 No 1000ug Common (Cyanocobal (Cyanocobal 5-19 S pirit rivera) rivera) 00:00: - [facility] [address] [facility] Vitamin B12 Vitamin B12 2-0 No 1000ug Common (Cyanocobal (Cyanocobal 5-19 S pirit rivera) rivera) 00:00: - [facility] [address] [facility] Vitamin B12 Vitamin B12 2-0 No 1000ug Common (Cyanocobal (Cyanocobal 5-19 S pirit rivera) rivera) 00:00: - [facility] [address] [facility] Vitamin B12 Vitamin B12 2-0 No 1000ug Common (Cyanocobal (Cyanocobal 5-19 S pirit rivera) rivera) 00:00: - [facility] [address] [facility] Vitamin B12 Vitamin B12 2-0 No 1000ug Common (Cyanocobal (Cyanocobal 5-19 S pirit rivera) rivera) 00:00: - [facility] [address] [facility] Vitamin B12 Vitamin B12 2022-0 No 1000ug Common (Cyanocobal (Cyanocobal 5-19 S pirit rivera) rivera) 00:00: - [facility] [address] [facility] Vitamin B12 Vitamin B12 2022-0 No 1000ug Common (Cyanocobal (Cyanocobal 5-19 S pirit rivera) rivera) 00:00: - [facility] [address] [facility] Vitamin B12 Vitamin B12 2022-0 No 1000ug Common (Cyanocobal (Cyanocobal 5-19 S pirit rivera) rivera) 00:00: - [facility] [address] [facility] Vitamin B12 Vitamin B12 2-0 No 1000ug Common (Cyanocobal (Cyanocobal 5-19 S pirit rivera) rivera) 00:00: - [facility] [address] [facility] Vitamin B12 Vitamin B12 2-0 No 1000ug Common (Cyanocobal (Cyanocobal 5-19 S pirit rivera) rivera) 00:00: - [facility] [address] [facility] Vitamin B12 Vitamin B12 2-0 No 1000ug Common (Cyanocobal (Cyanocobal 5-19 S pirit rivera) rivera) 00:00: - [facility] [address] [facility] Vitamin B12 Vitamin B12 2-0 No 1000ug Common (Cyanocobal (Cyanocobal 5-19 S pirit rivera) rivera) 00:00: - [facility] [address] [facility] Vitamin B12 Vitamin B12 2-0 No 1000ug Common (Cyanocobal (Cyanocobal 5-19 S pirit rivera) rivera) 00:00: - [facility] [address] [facility] Vitamin B12 Vitamin B12 2-0 No 1000ug Common (Cyanocobal (Cyanocobal 5-19 S pirit rivera) rivera) 00:00: - [facility] [address] [facility] Vitamin B12 Vitamin B12 2-0 No 1000ug Common (Cyanocobal (Cyanocobal 5-19 S pirit rivera) rivera) 00:00: - [facility] [address] [facility] Vitamin B12 Vitamin B12 2-0 No 1000ug Common (Cyanocobal (Cyanocobal 5-19 S pirit rivera) rivera) 00:00: - [facility] [address] [facility] Vitamin B12 Vitamin B12 2-0 No 1000ug Common (Cyanocobal (Cyanocobal 5-19 S pirit rivera) rivera) 00:00: - [facility] [address] [facility] Vitamin B12 Vitamin B12 2-0 No 1000ug Common (Cyanocobal (Cyanocobal 5-19 S pirit rivera) rivera) 00:00: - [facility] [address] [facility] Vitamin B12 Vitamin B12 2022-0 No 1000ug Common (Cyanocobal (Cyanocobal 5-19 S pirit rivera) rivera) 00:00: - [facility] [address] [facility] Vitamin B12 Vitamin B12 2-0 No 1000ug Common (Cyanocobal (Cyanocobal 5-19 S pirit rivera) rivera) 00:00: - [facility] [address] [facility] Macrobid Macrobid 2021-0 2- No BID Macrobid 100 MG 100 MG 09-15 100 MG 00:00: 00:00 00 :00 Pyridium Pyridium 2-0 2022- No 1{table BID Pyridium 200 MG 200 MG 09-15 t_after 200 MG 00:00: 00:00 _meals} 00 :00 Vitamin B12 Vitamin B12 2021-0 No 1000ug Common (Cyanocobal (Cyanocobal 5-04 S pirit rivera) rivera) 00:00: - [facility] [address] [facility] Vitamin B12 Vitamin B12 2021-0 No 1000ug Common (Cyanocobal (Cyanocobal 5-04 S pirit rivera) rivera) 00:00: - [facility] [address] [facility] Vitamin B12 Vitamin B12 2021-0 No 1000ug Common (Cyanocobal (Cyanocobal 5-04 S pirit rivera) rivera) 00:00: - [facility] [address] [facility] Vitamin B12 Vitamin B12 2021-0 No 1000ug Common (Cyanocobal (Cyanocobal 5-04 S pirit rivera) rivera) 00:00: - [facility] [address] [facility] Vitamin B12 Vitamin B12 2021-0 No 1000ug Common (Cyanocobal (Cyanocobal 5-04 S pirit rivera) rivera) 00:00: - [facility] [address] [facility] Vitamin B12 Vitamin B12 2-0 No 1000ug Common (Cyanocobal (Cyanocobal 5-04 S pirit rivera) rivera) 00:00: - [facility] [address] [facility] Vitamin B12 Vitamin B12 2-0 No 1000ug Common (Cyanocobal (Cyanocobal 5-04 S pirit rivera) rivera) 00:00: - [facility] [address] [facility] Vitamin B12 Vitamin B12 2022-0 No 1000ug Common (Cyanocobal (Cyanocobal 5-04 S pirit rivera) rivera) 00:00: - [facility] [address] [facility] Vitamin B12 Vitamin B12 2022-0 No 1000ug Common (Cyanocobal (Cyanocobal 5-04 S pirit rivera) rivera) 00:00: - [facility] [address] [facility] Vitamin B12 Vitamin B12 2-0 No 1000ug Common (Cyanocobal (Cyanocobal 5-04 S pirit rivera) rivera) 00:00: - [facility] [address] [facility] Vitamin B12 Vitamin B12 2021-0 No 1000ug Common (Cyanocobal (Cyanocobal 5-04 S pirit rivera) rivera) 00:00: - [facility] [address] [facility] Vitamin B12 Vitamin B12 2-0 No 1000ug Common (Cyanocobal (Cyanocobal 5-04 S pirit rivera) rivera) 00:00: - [facility] [address] [facility] Vitamin B12 Vitamin B12 2021-0 No 1000ug Common (Cyanocobal (Cyanocobal 5-04 S pirit rivera) rivera) 00:00: - [facility] [address] [facility] Vitamin B12 Vitamin B12 2021-0 No 1000ug Common (Cyanocobal (Cyanocobal 5-04 S pirit rivera) rivera) 00:00: - [facility] [address] [facility] Vitamin B12 Vitamin B12 2021-0 No 1000ug Common (Cyanocobal (Cyanocobal 5-04 S pirit rivera) rivera) 00:00: - [facility] [address] [facility] Vitamin B12 Vitamin B12 2021-0 No 1000ug Common (Cyanocobal (Cyanocobal 5-04 S pirit rivera) rivera) 00:00: - [facility] [address] [facility] Vitamin B12 Vitamin B12 2021-0 No 1000ug Common (Cyanocobal (Cyanocobal 5-04 S pirit rivera) rivera) 00:00: - [facility] [address] [facility] Vitamin B12 Vitamin B12 2-0 No 1000ug Common (Cyanocobal (Cyanocobal 5-04 S pirit rivera) rivera) 00:00: - [facility] [address] [facility] Vitamin B12 Vitamin B12 2-0 No 1000ug Common (Cyanocobal (Cyanocobal 5-04 S pirit rivera) rivera) 00:00: - [facility] [address] [facility] Vitamin B12 Vitamin B12 2-0 No 1000ug Common (Cyanocobal (Cyanocobal 5-04 S pirit rivera) rivera) 00:00: - [facility] [address] [facility] Vitamin B12 Vitamin B12 2022-0 No 1000ug Common (Cyanocobal (Cyanocobal 5-04 S pirit rivera) rivera) 00:00: - [facility] [address] [facility] Vitamin B12 Vitamin B12 2-0 No 1000ug Common (Cyanocobal (Cyanocobal 5-04 S pirit rivera) rivera) 00:00: - [facility] [address] [facility] Vitamin B12 Vitamin B12 2-0 No 1000ug Common (Cyanocobal (Cyanocobal 5-04 S pirit rivera) rivera) 00:00: - [facility] [address] [facility] Vitamin B12 Vitamin B12 2022-0 No 1000ug Common (Cyanocobal (Cyanocobal 5-04 S pirit rivera) rivera) 00:00: - [facility] [address] [facility] Vitamin B12 Vitamin B12 2-0 No 1000ug Common (Cyanocobal (Cyanocobal 4-21 S pirit rivera) rivera) 00:00: - [facility] [address] [facility] Vitamin B12 Vitamin B12 2021-0 No 1000ug Common (Cyanocobal (Cyanocobal 4-21 S pirit rivera) rivera) 00:00: - [facility] [address] [facility] Vitamin B12 Vitamin B12 2-0 No 1000ug Common (Cyanocobal (Cyanocobal 4-21 S pirit rivera) rivera) 00:00: - [facility] [address] [facility] Vitamin B12 Vitamin B12 2-0 No 1000ug Common (Cyanocobal (Cyanocobal 4-21 S pirit rivera) rivera) 00:00: - [facility] [address] [facility] Vitamin B12 Vitamin B12 2-0 No 1000ug Common (Cyanocobal (Cyanocobal 4-21 S pirit rivera) rivear) 00:00: - [facility] [address] [facility] Vitamin B12 Vitamin B12 2-0 No 1000ug Common (Cyanocobal (Cyanocobal 4-21 S pirit rivera) rivera) 00:00: - [facility] [address] [facility] Vitamin B12 Vitamin B12 2022-0 No 1000ug Common (Cyanocobal (Cyanocobal 4-21 S pirit rivera) rivera) 00:00: - [facility] [address] [facility] Vitamin B12 Vitamin B12 2022-0 No 1000ug Common (Cyanocobal (Cyanocobal 4-21 S pirit rivera) rivera) 00:00: - [facility] [address] [facility] Vitamin B12 Vitamin B12 2022-0 No 1000ug Common (Cyanocobal (Cyanocobal 4-21 S pirit rivera) rivera) 00:00: - [facility] [address] [facility] Vitamin B12 Vitamin B12 2022-0 No 1000ug Common (Cyanocobal (Cyanocobal 4-21 S pirit rivera) rivera) 00:00: - [facility] [address] [facility] Vitamin B12 Vitamin B12 2022-0 No 1000ug Common (Cyanocobal (Cyanocobal 4-21 S pirit rivera) rivera) 00:00: - [facility] [address] [facility] Vitamin B12 Vitamin B12 2022-0 No 1000ug Common (Cyanocobal (Cyanocobal 4-21 S pirit rivera) rivera) 00:00: - [facility] [address] [facility] Vitamin B12 Vitamin B12 2022-0 No 1000ug Common (Cyanocobal (Cyanocobal 4-21 S pirit rivera) rivera) 00:00: - [facility] [address] [facility] Vitamin B12 Vitamin B12 2-0 No 1000ug Common (Cyanocobal (Cyanocobal 4-21 S pirit rivera) rivera) 00:00: - [facility] [address] [facility] Vitamin B12 Vitamin B12 2022-0 No 1000ug Common (Cyanocobal (Cyanocobal 4-21 S pirit rivera) rivera) 00:00: - [facility] [address] [facility] Vitamin B12 Vitamin B12 2-0 No 1000ug Common (Cyanocobal (Cyanocobal 4-21 S pirit rivera) rivera) 00:00: - [facility] [address] [facility] Vitamin B12 Vitamin B12 2-0 No 1000ug Common (Cyanocobal (Cyanocobal 4-21 S pirit rivera) rivera) 00:00: - [facility] [address] [facility] Vitamin B12 Vitamin B12 2022-0 No 1000ug Common (Cyanocobal (Cyanocobal 4-21 S pirit rivera) rivera) 00:00: - [facility] [address] [facility] Vitamin B12 Vitamin B12 2022-0 No 1000ug Common (Cyanocobal (Cyanocobal 4-21 S pirit rivera) rivera) 00:00: - [facility] [address] [facility] Vitamin B12 Vitamin B12 2022-0 No 1000ug Common (Cyanocobal (Cyanocobal 4-21 S pirit rivera) rivera) 00:00: - [facility] [address] [facility] Vitamin B12 Vitamin B12 2022-0 No 1000ug Common (Cyanocobal (Cyanocobal 4-21 S pirit rivera) rivera) 00:00: - [facility] [address] [facility] Vitamin B12 Vitamin B12 2022-0 No 1000ug Common (Cyanocobal (Cyanocobal 4-21 S pirit rivera) rivera) 00:00: - [facility] [address] [facility] Vitamin B12 Vitamin B12 2-0 No 1000ug Common (Cyanocobal (Cyanocobal 4-21 S pirit rivera) rivera) 00:00: - [facility] [address] [facility] Vitamin B12 Vitamin B12 2022-0 No 1000ug Common (Cyanocobal (Cyanocobal 4-21 S pirit rivera) rivera) 00:00: - [facility] [address] [facility] Vitamin B12 Vitamin B12 2022-0 No 1000ug Common (Cyanocobal (Cyanocobal 4-21 S pirit rivera) rivera) 00:00: - [facility] [address] [facility] Vitamin B12 Vitamin B12 2-0 No 1000ug Common (Cyanocobal (Cyanocobal 4-07 S pirit rivera) rivera) 00:00: - [facility] [address] [facility] Vitamin B12 Vitamin B12 2-0 No 1000ug Common (Cyanocobal (Cyanocobal 4-07 S pirit rivera) rivera) 00:00: - [facility] [address] [facility] Vitamin B12 Vitamin B12 2-0 No 1000ug Common (Cyanocobal (Cyanocobal 4-07 S pirit rivera) rivera) 00:00: - [facility] [address] [facility] Vitamin B12 Vitamin B12 2-0 No 1000ug Common (Cyanocobal (Cyanocobal 4-07 S pirit rivera) rivera) 00:00: - [facility] [address] [facility] Vitamin B12 Vitamin B12 2-0 No 1000ug Common (Cyanocobal (Cyanocobal 4-07 S pirit rivera) rivera) 00:00: - [facility] [address] [facility] Vitamin B12 Vitamin B12 2022-0 No 1000ug Common (Cyanocobal (Cyanocobal 4-07 S pirit rivera) rivera) 00:00: - [facility] [address] [facility] Vitamin B12 Vitamin B12 2022-0 No 1000ug Common (Cyanocobal (Cyanocobal 4-07 S pirit rivera) rivera) 00:00: - [facility] [address] [facility] Vitamin B12 Vitamin B12 2022-0 No 1000ug Common (Cyanocobal (Cyanocobal 4-07 S pirit rivera) rivera) 00:00: - [facility] [address] [facility] Vitamin B12 Vitamin B12 2022-0 No 1000ug Common (Cyanocobal (Cyanocobal 4-07 S pirit rivera) rivera) 00:00: - [facility] [address] [facility] Vitamin B12 Vitamin B12 2022-0 No 1000ug Common (Cyanocobal (Cyanocobal 4-07 S pirit rivera) rivera) 00:00: - [facility] [address] [facility] Vitamin B12 Vitamin B12 2-0 No 1000ug Common (Cyanocobal (Cyanocobal 4-07 S pirit rivera) rivera) 00:00: - [facility] [address] [facility] Vitamin B12 Vitamin B12 2-0 No 1000ug Common (Cyanocobal (Cyanocobal 4-07 S pirit rivera) rivera) 00:00: - [facility] [address] [facility] Vitamin B12 Vitamin B12 2-0 No 1000ug Common (Cyanocobal (Cyanocobal 4-07 S pirit rivera) rivera) 00:00: - [facility] [address] [facility] Vitamin B12 Vitamin B12 2-0 No 1000ug Common (Cyanocobal (Cyanocobal 4-07 S pirit rivera) rivera) 00:00: - [facility] [address] [facility] Vitamin B12 Vitamin B12 2-0 No 1000ug Common (Cyanocobal (Cyanocobal 4-07 S pirit rivera) rivera) 00:00: - [facility] [address] [facility] Vitamin B12 Vitamin B12 2-0 No 1000ug Common (Cyanocobal (Cyanocobal 4-07 S pirit rivera) rivera) 00:00: - [facility] [address] [facility] Vitamin B12 Vitamin B12 2-0 No 1000ug Common (Cyanocobal (Cyanocobal 4-07 S pirit rivera) rivera) 00:00: - [facility] [address] [facility] Vitamin B12 Vitamin B12 2022-0 No 1000ug Common (Cyanocobal (Cyanocobal 4-07 S pirit rivera) rivera) 00:00: - [facility] [address] [facility] Vitamin B12 Vitamin B12 2022-0 No 1000ug Common (Cyanocobal (Cyanocobal 4-07 S pirit rivera) rivera) 00:00: - [facility] [address] [facility] Vitamin B12 Vitamin B12 2022-0 No 1000ug Common (Cyanocobal (Cyanocobal 4-07 S pirit rivera) rivera) 00:00: - [facility] [address] [facility] Vitamin B12 Vitamin B12 2021-0 No 1000ug Common (Cyanocobal (Cyanocobal 4-07 S pirit rivera) rivera) 00:00: - [facility] [address] [facility] Vitamin B12 Vitamin B12 2021-0 No 1000ug Common (Cyanocobal (Cyanocobal 4-07 S pirit rivera) rivera) 00:00: - [facility] [address] [facility] Vitamin B12 Vitamin B12 2021-0 No 1000ug Common (Cyanocobal (Cyanocobal 4-07 S pirit rivera) rivera) 00:00: - [facility] [address] [facility] Vitamin B12 Vitamin B12 2021-0 No 1000ug Common (Cyanocobal (Cyanocobal 4-07 S pirit rivera) rivera) 00:00: - [facility] [address] [facility] Vitamin B12 Vitamin B12 2021-0 No 1000ug Common (Cyanocobal (Cyanocobal 4-07 S pirit rivera) rivera) 00:00: - [facility] [address] [facility] Vitamin B12 Vitamin B12 2021-0 No 1000ug Common (Cyanocobal (Cyanocobal 4-07 S pirit rivera) rivera) 00:00: - [facility] [address] [facility] Vitamin B12 Vitamin B12 2021-0 No 1000ug Common (Cyanocobal (Cyanocobal 4-07 S pirit rivera) rivera) 00:00: - [facility] [address] [facility] Vitamin B12 Vitamin B12 2021-0 No 1000ug Common (Cyanocobal (Cyanocobal 4-07 S pirit rivera) rivera) 00:00: - [facility] [address] [facility] Vitamin B12 Vitamin B12 2021-0 No 1000ug Common (Cyanocobal (Cyanocobal 4-07 S pirit rivera) rivera) 00:00: - [facility] [address] [facility] ProAir HFA ProAir HFA 2021-0 No 2{puffs ProAir HFA 108 (90 108 (90 3-24 _as_nee 108 (90 Base) Base) 00:00: ded} Base) MCG/ACT MCG/ACT 00 MCG/ACT Vitamin B12 Vitamin B12 0 No 1000ug Common (Cyanocobal (Cyanocobal 3-24 S pirit rivera) rivera) 00:00: - [facility] [address] [facility] ProAir HFA ProAir HFA 2021-0 No 2{puffs ProAir HFA 108 (90 108 (90 3-24 _as_nee 108 (90 Base) Base) 00:00: ded} Base) MCG/ACT MCG/ACT 00 MCG/ACT Vitamin B12 Vitamin B12 0 No 1000ug Common (Cyanocobal (Cyanocobal 3-24 S pirit rivera) rivera) 00:00: - [facility] [address] [facility] ProAir HFA ProAir HFA 0 No 2{puffs ProAir HFA 108 (90 108 (90 3-24 _as_nee 108 (90 Base) Base) 00:00: ded} Base) MCG/ACT MCG/ACT 00 MCG/ACT Vitamin B12 Vitamin B12 0 No 1000ug Common (Cyanocobal (Cyanocobal 3-24 S pirit rivera) rivera) 00:00: - [facility] ProAir HFA ProAir HFA 0 No 2{puffs ProAir HFA 108 (90 108 (90 3-24 _as_nee 108 (90 Base) Base) 00:00: ded} Base) MCG/ACT MCG/ACT 00 MCG/ACT Vitamin B12 Vitamin B12 0 No 1000ug Common (Cyanocobal (Cyanocobal 3-24 S pirit rivera) rivera) 00:00: - [facility] ProAir HFA ProAir HFA 0 No 2{puffs ProAir HFA 108 (90 108 (90 3-24 _as_nee 108 (90 Base) Base) 00:00: ded} Base) MCG/ACT MCG/ACT 00 MCG/ACT Vitamin B12 Vitamin B12 0 No 1000ug Common (Cyanocobal (Cyanocobal 3-24 S pirit rivera) rivera) 00:00: - [facility] ProAir HFA ProAir HFA 0 No 2{puffs ProAir HFA 108 (90 108 (90 3-24 _as_nee 108 (90 Base) Base) 00:00: ded} Base) MCG/ACT MCG/ACT 00 MCG/ACT Vitamin B12 Vitamin B12 0 No 1000ug Common (Cyanocobal (Cyanocobal 3-24 S pirit rivera) rivera) 00:00: - [facility] ProAir HFA ProAir HFA No 2{puffs ProAir HFA 108 (90 108 (90 3-24 _as_nee 108 (90 Base) Base) 00:00: ded} Base) MCG/ACT MCG/ACT 00 MCG/ACT ProAir HFA ProAir HFA 0 No 2{puffs ProAir HFA 108 (90 108 (90 3-24 _as_nee 108 (90 Base) Base) 00:00: ded} Base) MCG/ACT MCG/ACT 00 MCG/ACT Vitamin B12 Vitamin B12 0 No 1000ug Common (Cyanocobal (Cyanocobal 3-24 S pirit rviera) rivera) 00:00: - [facility] [address] [facility] ProAir HFA ProAir HFA No 2{puffs ProAir HFA 108 (90 108 (90 3-24 _as_nee 108 (90 Base) Base) 00:00: ded} Base) MCG/ACT MCG/ACT 00 MCG/ACT Vitamin B12 Vitamin B12 0 No 1000ug Common (Cyanocobal (Cyanocobal 3-24 S pirit rivera) rivera) 00:00: - [facility] [address] [facility] ProAir HFA ProAir HFA No 2{puffs ProAir HFA 108 (90 108 (90 3-24 _as_nee 108 (90 Base) Base) 00:00: ded} Base) MCG/ACT MCG/ACT 00 MCG/ACT Vitamin B12 Vitamin B12 0 No 1000ug Common (Cyanocobal (Cyanocobal 3-24 S pirit rivera) rivera) 00:00: - [facility] [address] [facility] ProAir HFA ProAir HFA No 2{puffs ProAir HFA 108 (90 108 (90 3-24 _as_nee 108 (90 Base) Base) 00:00: ded} Base) MCG/ACT MCG/ACT 00 MCG/ACT Vitamin B12 Vitamin B12 0 No 1000ug Common (Cyanocobal (Cyanocobal 3-24 S pirit rivera) rivera) 00:00: - [facility] [address] [facility] ProAir HFA ProAir HFA 0 No 2{puffs ProAir HFA 108 (90 108 (90 3-24 _as_nee 108 (90 Base) Base) 00:00: ded} Base) MCG/ACT MCG/ACT 00 MCG/ACT Vitamin B12 Vitamin B12 0 No 1000ug Common (Cyanocobal (Cyanocobal 3-24 S pirit rivera) rivera) 00:00: - [facility] [address] [facility] ProAir HFA ProAir HFA 0 No 2{puffs ProAir HFA 108 (90 108 (90 3-24 _as_nee 108 (90 Base) Base) 00:00: ded} Base) MCG/ACT MCG/ACT 00 MCG/ACT Vitamin B12 Vitamin B12 0 No 1000ug Common (Cyanocobal (Cyanocobal 3-24 S pirit rivera) rivera) 00:00: - [facility] [address] [facility] ProAir HFA ProAir HFA 0 No 2{puffs ProAir HFA 108 (90 108 (90 3-24 _as_nee 108 (90 Base) Base) 00:00: ded} Base) MCG/ACT MCG/ACT 00 MCG/ACT Vitamin B12 Vitamin B12 0 No 1000ug Common (Cyanocobal (Cyanocobal 3-24 S pirit rivera) rivera) 00:00: - [facility] [address] [facility] ProAir HFA ProAir HFA 0 No 2{puffs ProAir HFA 108 (90 108 (90 3-24 _as_nee 108 (90 Base) Base) 00:00: ded} Base) MCG/ACT MCG/ACT 00 MCG/ACT Vitamin B12 Vitamin B12 0 No 1000ug Common (Cyanocobal (Cyanocobal 3-24 S pirit rivera) rivera) 00:00: - [facility] [address] [facility] Vitamin B12 Vitamin B12 0 No 1000ug Common (Cyanocobal (Cyanocobal 3-24 S pirit rivera) rivera) 00:00: - [facility] [address] [facility] ProAir HFA ProAir HFA 2021-0 No 2{puffs ProAir HFA 108 (90 108 (90 3-24 _as_nee 108 (90 Base) Base) 00:00: ded} Base) MCG/ACT MCG/ACT 00 MCG/ACT Vitamin B12 Vitamin B12 0 No 1000ug Common (Cyanocobal (Cyanocobal 3-24 S pirit rivera) rivera) 00:00: - [facility] ProAir HFA ProAir HFA 0 No 2{puffs ProAir HFA 108 (90 108 (90 3-24 _as_nee 108 (90 Base) Base) 00:00: ded} Base) MCG/ACT MCG/ACT 00 MCG/ACT Vitamin B12 Vitamin B12 0 No 1000ug Common (Cyanocobal (Cyanocobal 3-24 S pirit rivera) rivera) 00:00: - [facility] ProAir HFA ProAir HFA 0 No 2{puffs ProAir HFA 108 (90 108 (90 3-24 _as_nee 108 (90 Base) Base) 00:00: ded} Base) MCG/ACT MCG/ACT 00 MCG/ACT Vitamin B12 Vitamin B12 0 No 1000ug Common (Cyanocobal (Cyanocobal 3-24 S pirit rivera) rivera) 00:00: - [facility] ProAir HFA ProAir HFA 0 No 2{puffs ProAir HFA 108 (90 108 (90 3-24 _as_nee 108 (90 Base) Base) 00:00: ded} Base) MCG/ACT MCG/ACT 00 MCG/ACT Vitamin B12 Vitamin B12 0 No 1000ug Common (Cyanocobal (Cyanocobal 3-24 S pirit rivera) rivera) 00:00: - [facility] ProAir HFA ProAir HFA 0 No 2{puffs ProAir HFA 108 (90 108 (90 3-24 _as_nee 108 (90 Base) Base) 00:00: ded} Base) MCG/ACT MCG/ACT 00 MCG/ACT Vitamin B12 Vitamin B12 0 No 1000ug Common (Cyanocobal (Cyanocobal 3-24 S pirit rivera) rivera) 00:00: - [facility] ProAir HFA ProAir HFA 0 No 2{puffs ProAir HFA 108 (90 108 (90 3-24 _as_nee 108 (90 Base) Base) 00:00: ded} Base) MCG/ACT MCG/ACT 00 MCG/ACT Vitamin B12 Vitamin B12 0 No 1000ug Common (Cyanocobal (Cyanocobal 3-24 S pirit rivera) rivera) 00:00: - [facility] [address] [facility] ProAir HFA ProAir HFA 0 No 2{puffs ProAir HFA 108 (90 108 (90 3-24 _as_nee 108 (90 Base) Base) 00:00: ded} Base) MCG/ACT MCG/ACT 00 MCG/ACT Vitamin B12 Vitamin B12 0 No 1000ug Common (Cyanocobal (Cyanocobal 3-24 S pirit rivera) rivera) 00:00: - [facility] [address] [facility] ProAir HFA ProAir HFA 0 No 2{puffs ProAir HFA 108 (90 108 (90 3-24 _as_nee 108 (90 Base) Base) 00:00: ded} Base) MCG/ACT MCG/ACT 00 MCG/ACT Vitamin B12 Vitamin B12 0 No 1000ug Common (Cyanocobal (Cyanocobal 3-24 S pirit rivera) rivera) 00:00: - [facility] ProAir HFA ProAir HFA 0 No 2{puffs ProAir HFA 108 (90 108 (90 3-24 _as_nee 108 (90 Base) Base) 00:00: ded} Base) MCG/ACT MCG/ACT 00 MCG/ACT Vitamin B12 Vitamin B12 0 No 1000ug Common (Cyanocobal (Cyanocobal 3-24 S pirit rivera) rivera) 00:00: - [facility] ProAir HFA ProAir HFA 0 No 2{puffs ProAir HFA 108 (90 108 (90 3-24 _as_nee 108 (90 Base) Base) 00:00: ded} Base) MCG/ACT MCG/ACT 00 MCG/ACT Vitamin B12 Vitamin B12 0 No 1000ug Common (Cyanocobal (Cyanocobal 3-24 S pirit rivera) rivera) 00:00: - [facility] ProAir HFA ProAir HFA 0 No 2{puffs ProAir HFA 108 (90 108 (90 3-24 _as_nee 108 (90 Base) Base) 00:00: ded} Base) MCG/ACT MCG/ACT 00 MCG/ACT Vitamin B12 Vitamin B12 2022-0 No 1000ug Common (Cyanocobal (Cyanocobal 3-24 S pirit rivera) rivera) 00:00: - [facility] [address] [facility] ProAir HFA ProAir HFA 0 No 2{puffs ProAir HFA 108 (90 108 (90 3-24 _as_nee 108 (90 Base) Base) 00:00: ded} Base) MCG/ACT MCG/ACT 00 MCG/ACT Vitamin B12 Vitamin B12 0 No 1000ug Common (Cyanocobal (Cyanocobal 3-24 S pirit rivera) rivera) 00:00: - [facility] [address] [facility] ProAir HFA ProAir HFA 0 No 2{puffs ProAir HFA 108 (90 108 (90 3-24 _as_nee 108 (90 Base) Base) 00:00: ded} Base) MCG/ACT MCG/ACT 00 MCG/ACT Vitamin B12 Vitamin B12 0 No 1000ug Common (Cyanocobal (Cyanocobal 3-24 S pirit rivera) rivera) 00:00: - [facility] ProAir HFA ProAir HFA 0 No 2{puffs ProAir HFA 108 (90 108 (90 3-24 _as_nee 108 (90 Base) Base) 00:00: ded} Base) MCG/ACT MCG/ACT 00 MCG/ACT Vitamin B12 Vitamin B12 0 No 1000ug Common (Cyanocobal (Cyanocobal 3-24 S pirit rivera) rivrea) 00:00: - [facility] ProAir HFA ProAir HFA 0 No 2{puffs ProAir HFA 108 (90 108 (90 3-24 _as_nee 108 (90 Base) Base) 00:00: ded} Base) MCG/ACT MCG/ACT 00 MCG/ACT Vitamin B12 Vitamin B12 0 No 1000ug Common (Cyanocobal (Cyanocobal 3-24 S pirit rivera) rivera) 00:00: - [facility] Medrol 4 MG Medrol 4 MG 2021- No Medrol 4 3-24 03-30 MG 00:00: 00:00 00 :00 Azithromyci Azithromyci 0 2021- No QD Azithromyc n 250 MG n 250 MG 24 03-29 in 250 MG 00:00: 00:00 00 :00 Kenalog Kenalog 2021-0 No 40mg Common (Triamcinol (Triamcinol 3-16 S pirit one) one) 00:00: - [facility] [address] [facility] Kenalog Kenalog 2021-0 No 40mg Common (Triamcinol (Triamcinol 3-16 S pirit one) one) 00:00: - [facility] [address] [facility] Kenalog Kenalog 2021-0 No 40mg Common (Triamcinol (Triamcinol 3-16 S pirit one) one) 00:00: - [facility] [address] [facility] Kenalog Kenalog 2021-0 No 40mg Common (Triamcinol (Triamcinol 3-16 S pirit one) one) 00:00: - [facility] [address] [facility] Kenalog Kenalog 2021-0 No 40mg Common (Triamcinol (Triamcinol 3-16 S pirit one) one) 00:00: - [facility] [address] [facility] Kenalog Kenalog 2021-0 No 40mg Common (Triamcinol (Triamcinol 3-16 S pirit one) one) 00:00: - [facility] [address] [facility] Kenalog Kenalog 2021-0 No 40mg Common (Triamcinol (Triamcinol 3-16 S pirit one) one) 00:00: - [facility] [address] [facility] Kenalog Kenalog 2021-0 No 40mg Common (Triamcinol (Triamcinol 3-16 S pirit one) one) 00:00: - [facility] [address] [facility] Kenalog Kenalog 2021-0 No 40mg Common (Triamcinol (Triamcinol 3-16 S pirit one) one) 00:00: - [facility] [address] [facility] Kenalog Kenalog 2021-0 No 40mg Common (Triamcinol (Triamcinol 3-16 S pirit one) one) 00:00: - [facility] [address] [facility] Kenalog Kenalog 2021-0 No 40mg Common (Triamcinol (Triamcinol 3-16 S pirit one) one) 00:00: - [facility] [address] [facility] Kenalog Kenalog 2021-0 No 40mg Common (Triamcinol (Triamcinol 3-16 S pirit one) one) 00:00: - [facility] [address] [facility] Kenalog Kenalog 2021-0 No 40mg Common (Triamcinol (Triamcinol 3-16 S pirit one) one) 00:00: - [facility] [address] [facility] Kenalog Kenalog 2021-0 No 40mg Common (Triamcinol (Triamcinol 3-16 S pirit one) one) 00:00: - [facility] [address] [facility] Kenalog Kenalog 2021-0 No 40mg Common (Triamcinol (Triamcinol 3-16 S pirit one) one) 00:00: - [facility] [address] [facility] Kenalog Kenalog 0 No 40mg Common (Triamcinol (Triamcinol 3-16 S pirit one) one) 00:00: - [facility] [address] [facility] Kenalog Kenalog 0 No 40mg Common (Triamcinol (Triamcinol 3-16 S pirit one) one) 00:00: - [facility] [address] [facility] Kenalog Kenalog 2021-0 No 40mg Common (Triamcinol (Triamcinol 3-16 S pirit one) one) 00:00: - [facility] [address] [facility] Kenalog Kenalog 2021-0 No 40mg Common (Triamcinol (Triamcinol 3-16 S pirit one) one) 00:00: - [facility] [address] [facility] Kenalog Kenalog 2021-0 No 40mg Common (Triamcinol (Triamcinol 3-16 S pirit one) one) 00:00: - [facility] [address] [facility] Kenalog Kenalog 2021-0 No 40mg Common (Triamcinol (Triamcinol 3-16 S pirit one) one) 00:00: - [facility] [address] [facility] Kenalog Kenalog 2021-0 No 40mg Common (Triamcinol (Triamcinol 3-16 S pirit one) one) 00:00: - [facility] [address] [facility] Kenalog Kenalog 2021-0 No 40mg Common (Triamcinol (Triamcinol 3-16 S pirit one) one) 00:00: - [facility] [address] [facility] Kenalog Kenalog 2021-0 No 40mg Common (Triamcinol (Triamcinol 3-16 S pirit one) one) 00:00: - [facility] [address] [facility] Kenalog Kenalog 2021-0 No 40mg Common (Triamcinol (Triamcinol 3-16 S pirit one) one) 00:00: - [facility] [address] [facility] Kenalog Kenalog 2021-0 No 40mg Common (Triamcinol (Triamcinol 3-16 S pirit one) one) 00:00: - [facility] [address] [facility] Kenjama Kenalog 0 No 40mg Common (Triamcinol (Triamcinol 3-16 S pirit one) one) 00:00: - [facility] [address] [facility] Kenjama Kenalog 2021-0 No 40mg Common (Triamcinol (Triamcinol 3-16 S pirit one) one) 00:00: - [facility] [address] [facility] Kenjama Kenalog 2021-0 No 40mg Common (Triamcinol (Triamcinol 3-16 S pirit one) one) 00:00: - [facility] [address] [facility] Kenjama Kenalog 2021-0 No 40mg Common (Triamcinol (Triamcinol 3-16 S pirit one) one) 00:00: - [facility] [address] [facility] Kenalog Kenalog 2021-0 No 40mg Common (Triamcinol (Triamcinol 3-16 S pirit one) one) 00:00: - [facility] [address] [facility] Kenalog Kenalog 2021-0 No 40mg Common (Triamcinol (Triamcinol 3-16 S pirit one) one) 00:00: - [facility] [address] [facility] Kenalog Kenalog 2021-0 No 40mg Common (Triamcinol (Triamcinol 3-16 S pirit one) one) 00:00: - [facility] [address] [facility] Kenalog Kenalog 2021-0 No 40mg Common (Triamcinol (Triamcinol 3-16 S pirit one) one) 00:00: - [facility] [address] [facility] Kenalog Kenalog 2021-0 No 40mg Common (Triamcinol (Triamcinol 3-16 S pirit one) one) 00:00: - [facility] [address] [facility] Vitamin B12 Vitamin B12 2021-0 No 1000ug Common (Cyanocobal (Cyanocobal 3-10 S pirit rivera) rivera) 00:00: - [facility] [address] [facility] Vitamin B12 Vitamin B12 2021-0 No 1000ug Common (Cyanocobal (Cyanocobal 3-10 S pirit rivera) rivera) 00:00: - [facility] [address] [facility] Vitamin B12 Vitamin B12 2021-0 No 1000ug Common (Cyanocobal (Cyanocobal 3-10 S pirit rivera) rivera) 00:00: - [facility] [address] [facility] Vitamin B12 Vitamin B12 2021-0 No 1000ug Common (Cyanocobal (Cyanocobal 3-10 S pirit rivera) rivera) 00:00: - [facility] [address] [facility] Vitamin B12 Vitamin B12 2021-0 No 1000ug Common (Cyanocobal (Cyanocobal 3-10 S pirit rivera) rivera) 00:00: - [facility] [address] [facility] Vitamin B12 Vitamin B12 2021-0 No 1000ug Common (Cyanocobal (Cyanocobal 3-10 S pirit rivera) rivera) 00:00: - [facility] [address] [facility] Vitamin B12 Vitamin B12 2021-0 No 1000ug Common (Cyanocobal (Cyanocobal 3-10 S pirit rivera) rivera) 00:00: - [facility] [address] [facility] Vitamin B12 Vitamin B12 2021-0 No 1000ug Common (Cyanocobal (Cyanocobal 3-10 S pirit rivera) rivera) 00:00: - [facility] [address] [facility] Vitamin B12 Vitamin B12 2021-0 No 1000ug Common (Cyanocobal (Cyanocobal 3-10 S pirit rivera) rivera) 00:00: - [facility] [address] [facility] Vitamin B12 Vitamin B12 2021-0 No 1000ug Common (Cyanocobal (Cyanocobal 3-10 S pirit rivera) rivera) 00:00: - [facility] [address] [facility] Vitamin B12 Vitamin B12 2021-0 No 1000ug Common (Cyanocobal (Cyanocobal 3-10 S pirit rivera) rivera) 00:00: - [facility] [address] [facility] Vitamin B12 Vitamin B12 2021-0 No 1000ug Common (Cyanocobal (Cyanocobal 3-10 S pirit rivera) rivera) 00:00: - [facility] [address] [facility] Vitamin B12 Vitamin B12 2022-0 No 1000ug Common (Cyanocobal (Cyanocobal 3-10 S pirit rivera) rivera) 00:00: - [facility] [address] [facility] Vitamin B12 Vitamin B12 2021-0 No 1000ug Common (Cyanocobal (Cyanocobal 3-10 S pirit rivera) rivera) 00:00: - [facility] [address] [facility] Vitamin B12 Vitamin B12 2021-0 No 1000ug Common (Cyanocobal (Cyanocobal 3-10 S pirit rivera) rivera) 00:00: - [facility] [address] [facility] Vitamin B12 Vitamin B12 2021-0 No 1000ug Common (Cyanocobal (Cyanocobal 3-10 S pirit rivera) rivera) 00:00: - [facility] [address] [facility] Vitamin B12 Vitamin B12 2021-0 No 1000ug Common (Cyanocobal (Cyanocobal 3-10 S pirit rivera) rivera) 00:00: - [facility] [address] [facility] Vitamin B12 Vitamin B12 2021-0 No 1000ug Common (Cyanocobal (Cyanocobal 3-10 S pirit rivera) rievra) 00:00: - [facility] [address] [facility] Vitamin B12 Vitamin B12 2-0 No 1000ug Common (Cyanocobal (Cyanocobal 3-10 S pirit rivera) rivera) 00:00: - [facility] [address] [facility] Vitamin B12 Vitamin B12 2-0 No 1000ug Common (Cyanocobal (Cyanocobal 3-10 S pirit rivera) rivera) 00:00: - [facility] [address] [facility] Vitamin B12 Vitamin B12 2-0 No 1000ug Common (Cyanocobal (Cyanocobal 3-10 S pirit rivera) rivera) 00:00: - [facility] [address] [facility] Vitamin B12 Vitamin B12 2022-0 No 1000ug Common (Cyanocobal (Cyanocobal 3-10 S pirit rivera) rivera) 00:00: - [facility] [address] [facility] Vitamin B12 Vitamin B12 2-0 No 1000ug Common (Cyanocobal (Cyanocobal 3-10 S pirit rivera) rivera) 00:00: - [facility] [address] [facility] Vitamin B12 Vitamin B12 2-0 No 1000ug Common (Cyanocobal (Cyanocobal 3-10 S pirit rivera) rivera) 00:00: - [facility] [address] [facility] Vitamin B12 Vitamin B12 2-0 No 1000ug Common (Cyanocobal (Cyanocobal 3-10 S pirit rivera) rivera) 00:00: - [facility] [address] [facility] Vitamin B12 Vitamin B12 2-0 No 1000ug Common (Cyanocobal (Cyanocobal 3-10 S pirit rivera) rivera) 00:00: - [facility] [address] [facility] Vitamin B12 Vitamin B12 2-0 No 1000ug Common (Cyanocobal (Cyanocobal 3-10 S pirit rivera) rivera) 00:00: - [facility] [address] [facility] Vitamin B12 Vitamin B12 2-0 No 1000ug Common (Cyanocobal (Cyanocobal 3-10 S pirit rivera) rivera) 00:00: - [facility] [address] [facility] Vitamin B12 Vitamin B12 2-0 No 1000ug Common (Cyanocobal (Cyanocobal 3-10 S pirit rivera) rivera) 00:00: - [facility] [address] [facility] Vitamin B12 Vitamin B12 2-0 No 1000ug Common (Cyanocobal (Cyanocobal 3-10 S pirit rivera) rivera) 00:00: - [facility] [address] [facility] Vitamin B12 Vitamin B12 2-0 No 1000ug Common (Cyanocobal (Cyanocobal 3-10 S pirit rivera) rivera) 00:00: - [facility] [address] [facility] Vitamin B12 Vitamin B12 2-0 No 1000ug Common (Cyanocobal (Cyanocobal 3-10 S pirit rivera) rivera) 00:00: - [facility] [address] [facility] Vitamin B12 Vitamin B12 2022-0 No 1000ug Common (Cyanocobal (Cyanocobal 3-10 S pirit rivera) rivera) 00:00: - [facility] [address] [facility] Vitamin B12 Vitamin B12 2022-0 No 1000ug Common (Cyanocobal (Cyanocobal 3-10 S pirit rivera) rivera) 00:00: - [facility] [address] [facility] Vitamin B12 Vitamin B12 2022-0 No 1000ug Common (Cyanocobal (Cyanocobal 3-10 S pirit rivera) rivera) 00:00: - [facility] [address] [facility] Vitamin B12 Vitamin B12 2022-0 No 1000ug Common (Cyanocobal (Cyanocobal 3-10 S pirit rivera) rivera) 00:00: - [facility] [address] [facility] Vitamin B12 Vitamin B12 2022-0 No 1000ug Common (Cyanocobal (Cyanocobal 2-24 S pirit rivera) rivera) 00:00: - [facility] [address] [facility] Vitamin B12 Vitamin B12 2022-0 No 1000ug Common (Cyanocobal (Cyanocobal 2-24 S pirit rivera) rivera) 00:00: - [facility] [address] [facility] Vitamin B12 Vitamin B12 2-0 No 1000ug Common (Cyanocobal (Cyanocobal 2-24 S pirit rivera) rivera) 00:00: - [facility] [address] [facility] Vitamin B12 Vitamin B12 2-0 No 1000ug Common (Cyanocobal (Cyanocobal 2-24 S pirit rivera) rivera) 00:00: - [facility] [address] [facility] Vitamin B12 Vitamin B12 2-0 No 1000ug Common (Cyanocobal (Cyanocobal 2-24 S pirit rivera) rivera) 00:00: - [facility] [address] [facility] Vitamin B12 Vitamin B12 2-0 No 1000ug Common (Cyanocobal (Cyanocobal 2-24 S pirit rivera) rivera) 00:00: - [facility] [address] [facility] Vitamin B12 Vitamin B12 2-0 No 1000ug Common (Cyanocobal (Cyanocobal 2-24 S pirit rivera) rivera) 00:00: - [facility] [address] [facility] Vitamin B12 Vitamin B12 2022-0 No 1000ug Common (Cyanocobal (Cyanocobal 2-24 S pirit rivera) rivera) 00:00: - [facility] [address] [facility] Vitamin B12 Vitamin B12 2022-0 No 1000ug Common (Cyanocobal (Cyanocobal 2-24 S pirit rivera) rivera) 00:00: - [facility] [address] [facility] Vitamin B12 Vitamin B12 2022-0 No 1000ug Common (Cyanocobal (Cyanocobal 2-24 S pirit rivera) rivera) 00:00: - [facility] [address] [facility] Vitamin B12 Vitamin B12 2022-0 No 1000ug Common (Cyanocobal (Cyanocobal 2-24 S pirit rivera) rivera) 00:00: - [facility] [address] [facility] Vitamin B12 Vitamin B12 2022-0 No 1000ug Common (Cyanocobal (Cyanocobal 2-24 S pirit rivera) rivera) 00:00: - [facility] [address] [facility] Vitamin B12 Vitamin B12 2022-0 No 1000ug Common (Cyanocobal (Cyanocobal 2-24 S pirit rivera) rivera) 00:00: - [facility] [address] [facility] Vitamin B12 Vitamin B12 2022-0 No 1000ug Common (Cyanocobal (Cyanocobal 2-24 S pirit rivera) rivera) 00:00: - [facility] [address] [facility] Vitamin B12 Vitamin B12 2-0 No 1000ug Common (Cyanocobal (Cyanocobal 2-24 S pirit rivera) rivera) 00:00: - [facility] [address] [facility] Vitamin B12 Vitamin B12 2-0 No 1000ug Common (Cyanocobal (Cyanocobal 2-24 S pirit rivera) rivera) 00:00: - [facility] [address] [facility] Vitamin B12 Vitamin B12 2-0 No 1000ug Common (Cyanocobal (Cyanocobal 2-24 S pirit rivera) rivera) 00:00: - [facility] [address] [facility] Vitamin B12 Vitamin B12 2-0 No 1000ug Common (Cyanocobal (Cyanocobal 2-24 S pirit rivera) rivera) 00:00: - [facility] [address] [facility] Vitamin B12 Vitamin B12 2-0 No 1000ug Common (Cyanocobal (Cyanocobal 2-24 S pirit rivera) rivera) 00:00: - [facility] [address] [facility] Vitamin B12 Vitamin B12 2022-0 No 1000ug Common (Cyanocobal (Cyanocobal 2-24 S pirit rivera) rivera) 00:00: - [facility] [address] [facility] Vitamin B12 Vitamin B12 2022-0 No 1000ug Common (Cyanocobal (Cyanocobal 2-24 S pirit rivera) rivera) 00:00: - [facility] [address] [facility] Vitamin B12 Vitamin B12 2022-0 No 1000ug Common (Cyanocobal (Cyanocobal 2-24 S pirit rivera) rivera) 00:00: - [facility] [address] [facility] Vitamin B12 Vitamin B12 2022-0 No 1000ug Common (Cyanocobal (Cyanocobal 2-24 S pirit rivera) rivera) 00:00: - [facility] [address] [facility] Vitamin B12 Vitamin B12 2-0 No 1000ug Common (Cyanocobal (Cyanocobal 2-24 S pirit rivera) rivera) 00:00: - [facility] [address] [facility] Vitamin B12 Vitamin B12 2-0 No 1000ug Common (Cyanocobal (Cyanocobal 2-24 S pirit rivera) rivera) 00:00: - [facility] [address] [facility] Vitamin B12 Vitamin B12 2-0 No 1000ug Common (Cyanocobal (Cyanocobal 2-24 S pirit rivera) rivera) 00:00: - [facility] [address] [facility] Vitamin B12 Vitamin B12 2-0 No 1000ug Common (Cyanocobal (Cyanocobal 2-24 S pirit rivera) rivera) 00:00: - [facility] [address] [facility] Vitamin B12 Vitamin B12 2-0 No 1000ug Common (Cyanocobal (Cyanocobal 2-24 S pirit rivera) rivera) 00:00: - [facility] [address] [facility] Vitamin B12 Vitamin B12 2-0 No 1000ug Common (Cyanocobal (Cyanocobal 2-24 S pirit rivera) rivera) 00:00: - [facility] [address] [facility] Vitamin B12 Vitamin B12 2-0 No 1000ug Common (Cyanocobal (Cyanocobal 2-24 S pirit rivera) rivera) 00:00: - [facility] [address] [facility] Vitamin B12 Vitamin B12 2-0 No 1000ug Common (Cyanocobal (Cyanocobal 2-24 S pirit rivera) rivera) 00:00: - [facility] [address] [facility] Vitamin B12 Vitamin B12 2022-0 No 1000ug Common (Cyanocobal (Cyanocobal 2-24 S pirit rivera) rivera) 00:00: - [facility] [address] [facility] Vitamin B12 Vitamin B12 2022-0 No 1000ug Common (Cyanocobal (Cyanocobal 2-24 S pirit rivera) rivera) 00:00: - [facility] [address] [facility] Vitamin B12 Vitamin B12 2022-0 No 1000ug Common (Cyanocobal (Cyanocobal 2-24 S pirit rivera) rivera) 00:00: - [facility] [address] [facility] Vitamin B12 Vitamin B12 2021-0 No 1000ug Common (Cyanocobal (Cyanocobal 2-24 S pirit rivera) rivera) 00:00: - [facility] [address] [facility] Vitamin B12 Vitamin B12 2021-0 No 1000ug Common (Cyanocobal (Cyanocobal 2-24 S pirit rivera) rivera) 00:00: - [facility] [address] [facility] Vitamin B12 Vitamin B12 2021-0 No 1000ug Common (Cyanocobal (Cyanocobal 2-24 S pirit rivera) rivera) 00:00: - [facility] [address] [facility] CeleBREX CeleBREX 2021-0 2022- No 1{capsu QD CeleBREX 200 MG 200 MG 05-26 le_with 200 MG 00:00: 00:00 _food} 00 :00 CeleBREX CeleBREX 2021-0 2022- No 1{capsu QD CeleBREX 200 MG 200 MG 05-26 le_with 200 MG 00:00: 00:00 _food} 00 :00 CeleBREX CeleBREX 2021-0 2022- No 1{capsu QD CeleBREX 200 MG 200 MG 05-26 le_with 200 MG 00:00: 00:00 _food} 00 :00 CeleBREX CeleBREX 2021-0 2022- No 1{capsu QD CeleBREX 200 MG 200 MG 05-26 le_with 200 MG 00:00: 00:00 _food} 00 :00 CeleBREX CeleBREX 2021-0 2022- No 1{capsu QD CeleBREX 200 MG 200 MG 05-26 le_with 200 MG 00:00: 00:00 _food} 00 :00 CeleBREX CeleBREX 2021-0 2022- No 1{capsu QD CeleBREX 200 MG 200 MG 05-26 le_with 200 MG 00:00: 00:00 _food} 00 :00 CeleBREX CeleBREX 2021-0 2022- No 1{capsu QD CeleBREX 200 MG 200 MG 05-26 le_with 200 MG 00:00: 00:00 _food} 00 :00 CeleBREX CeleBREX 2021-0 2022- No 1{capsu QD CeleBREX 200 MG 200 MG 05-26 le_with 200 MG 00:00: 00:00 _food} 00 :00 CeleBREX CeleBREX 2021-0 2022- No 1{capsu QD CeleBREX 200 MG 200 MG 05-26 le_with 200 MG 00:00: 00:00 _food} 00 :00 CeleBREX CeleBREX 2021-0 2022- No 1{capsu QD CeleBREX 200 MG 200 MG 05-26 le_with 200 MG 00:00: 00:00 _food} 00 :00 CeleBREX CeleBREX 2021-0 2022- No 1{capsu QD CeleBREX 200 MG 200 MG 05-26 le_with 200 MG 00:00: 00:00 _food} 00 :00 CeleBREX CeleBREX 2021-0 2022- No 1{capsu QD CeleBREX 200 MG 200 MG 05-26 le_with 200 MG 00:00: 00:00 _food} 00 :00 CeleBREX CeleBREX 2021-0 2022- No 1{capsu QD CeleBREX 200 MG 200 MG 05-26 le_with 200 MG 00:00: 00:00 _food} 00 :00 CeleBREX CeleBREX 2021-0 2022- No 1{capsu QD CeleBREX 200 MG 200 MG 05-26 le_with 200 MG 00:00: 00:00 _food} 00 :00 Vitamin B12 Vitamin B12 2021-0 No 1000ug Common (Cyanocobal (Cyanocobal 1-21 S pirit rivera) rivera) 00:00: - [facility] [address] [facility] Vitamin B12 Vitamin B12 2021-0 No 1000ug Common (Cyanocobal (Cyanocobal 1-21 S pirit rivera) rivera) 00:00: - [facility] [address] [facility] Vitamin B12 Vitamin B12 2021-0 No 1000ug Common (Cyanocobal (Cyanocobal 1-21 S pirit rivera) rivera) 00:00: - [facility] [address] [facility] Vitamin B12 Vitamin B12 2021-0 No 1000ug Common (Cyanocobal (Cyanocobal 1-21 S pirit rivera) rivera) 00:00: - [facility] [address] [facility] Vitamin B12 Vitamin B12 2022-0 No 1000ug Common (Cyanocobal (Cyanocobal 1-21 S pirit rivera) rivera) 00:00: - [facility] [address] [facility] Vitamin B12 Vitamin B12 2022-0 No 1000ug Common (Cyanocobal (Cyanocobal 1-21 S pirit rivera) rivera) 00:00: - [facility] [address] [facility] Vitamin B12 Vitamin B12 2-0 No 1000ug Common (Cyanocobal (Cyanocobal 1-21 S pirit rivera) rivera) 00:00: - [facility] [address] [facility] Vitamin B12 Vitamin B12 2-0 No 1000ug Common (Cyanocobal (Cyanocobal 1-21 S pirit rivera) rivera) 00:00: - [facility] [address] [facility] Vitamin B12 Vitamin B12 2-0 No 1000ug Common (Cyanocobal (Cyanocobal 1-21 S pirit rivera) rivera) 00:00: - [facility] [address] [facility] Vitamin B12 Vitamin B12 2-0 No 1000ug Common (Cyanocobal (Cyanocobal 1-21 S pirit rivera) rivera) 00:00: - [facility] [address] [facility] Vitamin B12 Vitamin B12 2-0 No 1000ug Common (Cyanocobal (Cyanocobal 1-21 S pirit rivera) rivera) 00:00: - [facility] [address] [facility] Vitamin B12 Vitamin B12 2-0 No 1000ug Common (Cyanocobal (Cyanocobal 1-21 S pirit rivera) rivera) 00:00: - [facility] [address] [facility] Vitamin B12 Vitamin B12 2-0 No 1000ug Common (Cyanocobal (Cyanocobal 1-21 S pirit rivera) rivera) 00:00: - [facility] [address] [facility] Vitamin B12 Vitamin B12 2022-0 No 1000ug Common (Cyanocobal (Cyanocobal 1-21 S pirit rivera) rivera) 00:00: - [facility] [address] [facility] Vitamin B12 Vitamin B12 2022-0 No 1000ug Common (Cyanocobal (Cyanocobal 1-21 S pirit rivera) rivera) 00:00: - [facility] [address] [facility] Vitamin B12 Vitamin B12 2022-0 No 1000ug Common (Cyanocobal (Cyanocobal 1-21 S pirit rivera) rivera) 00:00: - [facility] [address] [facility] Vitamin B12 Vitamin B12 2022-0 No 1000ug Common (Cyanocobal (Cyanocobal 1-21 S pirit rivera) rivera) 00:00: - [facility] [address] [facility] Vitamin B12 Vitamin B12 2-0 No 1000ug Common (Cyanocobal (Cyanocobal 1-21 S pirit rivera) rivera) 00:00: - [facility] [address] [facility] Vitamin B12 Vitamin B12 2-0 No 1000ug Common (Cyanocobal (Cyanocobal 1-21 S pirit rivera) rivera) 00:00: - [facility] [address] [facility] Vitamin B12 Vitamin B12 2-0 No 1000ug Common (Cyanocobal (Cyanocobal 1-21 S pirit rivera) rivera) 00:00: - [facility] [address] [facility] Vitamin B12 Vitamin B12 2-0 No 1000ug Common (Cyanocobal (Cyanocobal 1-21 S pirit rivera) rivera) 00:00: - [facility] [address] [facility] Vitamin B12 Vitamin B12 2-0 No 1000ug Common (Cyanocobal (Cyanocobal 1-21 S pirit rivera) rivera) 00:00: - [facility] [address] [facility] Vitamin B12 Vitamin B12 2-0 No 1000ug Common (Cyanocobal (Cyanocobal 1-21 S pirit rivera) rivera) 00:00: - [facility] [address] [facility] Vitamin B12 Vitamin B12 2-0 No 1000ug Common (Cyanocobal (Cyanocobal 1-21 S pirit rivera) rivera) 00:00: - [facility] [address] [facility] Vitamin B12 Vitamin B12 2-0 No 1000ug Common (Cyanocobal (Cyanocobal 1-21 S pirit rivera) rivera) 00:00: - [facility] [address] [facility] Vitamin B12 Vitamin B12 2022-0 No 1000ug Common (Cyanocobal (Cyanocobal 1-21 S pirit rivera) rivera) 00:00: - [facility] [address] [facility] Vitamin B12 Vitamin B12 2022-0 No 1000ug Common (Cyanocobal (Cyanocobal 1-21 S pirit rivera) rivera) 00:00: - [facility] [address] [facility] Vitamin B12 Vitamin B12 2022-0 No 1000ug Common (Cyanocobal (Cyanocobal 1-21 S pirit rivera) rivera) 00:00: - [facility] [address] [facility] Vitamin B12 Vitamin B12 2022-0 No 1000ug Common (Cyanocobal (Cyanocobal 1-21 S pirit rivera) rivera) 00:00: - [facility] [address] [facility] Vitamin B12 Vitamin B12 2022-0 No 1000ug Common (Cyanocobal (Cyanocobal 1-21 S pirit rivera) rivera) 00:00: - [facility] [address] [facility] Vitamin B12 Vitamin B12 2-0 No 1000ug Common (Cyanocobal (Cyanocobal 1-21 S pirit rivera) rivera) 00:00: - [facility] [address] [facility] Vitamin B12 Vitamin B12 2-0 No 1000ug Common (Cyanocobal (Cyanocobal 1-21 S pirit rivera) rivera) 00:00: - [facility] [address] [facility] Vitamin B12 Vitamin B12 2-0 No 1000ug Common (Cyanocobal (Cyanocobal 1-21 S pirit rivera) rivera) 00:00: - [facility] [address] [facility] Vitamin B12 Vitamin B12 2-0 No 1000ug Common (Cyanocobal (Cyanocobal 1-21 S pirit rivera) rivera) 00:00: - [facility] [address] [facility] Vitamin B12 Vitamin B12 2-0 No 1000ug Common (Cyanocobal (Cyanocobal 1-21 S pirit rivera) rivera) 00:00: - [facility] [address] [facility] Vitamin B12 Vitamin B12 2-0 No 1000ug Common (Cyanocobal (Cyanocobal 1-21 S pirit rivera) rivera) 00:00: - [facility] [address] [facility] Vitamin B12 Vitamin B12 2-0 No 1000ug Common (Cyanocobal (Cyanocobal 1-21 S pirit rivera) rivera) 00:00: - [facility] [address] [facility] Vitamin B12 Vitamin B12 2022-0 No 1000ug Common (Cyanocobal (Cyanocobal 1-07 S pirit rivera) rivera) 00:00: - [facility] [address] [facility] Vitamin B12 Vitamin B12 2022-0 No 1000ug Common (Cyanocobal (Cyanocobal 1-07 S pirit rivera) rivera) 00:00: - [facility] [address] [facility] Vitamin B12 Vitamin B12 2022-0 No 1000ug Common (Cyanocobal (Cyanocobal 1-07 S pirit rivera) rivera) 00:00: - [facility] [address] [facility] Vitamin B12 Vitamin B12 2022-0 No 1000ug Common (Cyanocobal (Cyanocobal 1-07 S pirit rivera) rivera) 00:00: - [facility] [address] [facility] Vitamin B12 Vitamin B12 2-0 No 1000ug Common (Cyanocobal (Cyanocobal 1-07 S pirit rivera) rivera) 00:00: - [facility] [address] [facility] Vitamin B12 Vitamin B12 2-0 No 1000ug Common (Cyanocobal (Cyanocobal 1-07 S pirit rivera) rivera) 00:00: - [facility] [address] [facility] Vitamin B12 Vitamin B12 2-0 No 1000ug Common (Cyanocobal (Cyanocobal 1-07 S pirit rivera) rivera) 00:00: - [facility] [address] [facility] Vitamin B12 Vitamin B12 2-0 No 1000ug Common (Cyanocobal (Cyanocobal 1-07 S pirit rivera) rivera) 00:00: - [facility] [address] [facility] Vitamin B12 Vitamin B12 2-0 No 1000ug Common (Cyanocobal (Cyanocobal 1-07 S pirit rivera) rivera) 00:00: - [facility] [address] [facility] Vitamin B12 Vitamin B12 2-0 No 1000ug Common (Cyanocobal (Cyanocobal 1-07 S pirit rivera) rivera) 00:00: - [facility] [address] [facility] Vitamin B12 Vitamin B12 2022-0 No 1000ug Common (Cyanocobal (Cyanocobal 1-07 S pirit rivera) rivera) 00:00: - [facility] [address] [facility] Vitamin B12 Vitamin B12 2-0 No 1000ug Common (Cyanocobal (Cyanocobal 1-07 S pirit rivera) rivera) 00:00: - [facility] [address] [facility] Vitamin B12 Vitamin B12 2022-0 No 1000ug Common (Cyanocobal (Cyanocobal 1-07 S pirit rivera) rivera) 00:00: - [facility] [address] [facility] Vitamin B12 Vitamin B12 2022-0 No 1000ug Common (Cyanocobal (Cyanocobal 1-07 S pirit rivera) rivera) 00:00: - [facility] [address] [facility] Vitamin B12 Vitamin B12 2022-0 No 1000ug Common (Cyanocobal (Cyanocobal 1-07 S pirit rivera) rivera) 00:00: - [facility] [address] [facility] Vitamin B12 Vitamin B12 2-0 No 1000ug Common (Cyanocobal (Cyanocobal 1-07 S pirit rivera) rivera) 00:00: - [facility] [address] [facility] Vitamin B12 Vitamin B12 2022-0 No 1000ug Common (Cyanocobal (Cyanocobal 1-07 S pirit rivera) rivera) 00:00: - [facility] [address] [facility] Vitamin B12 Vitamin B12 2-0 No 1000ug Common (Cyanocobal (Cyanocobal 1-07 S pirit rivera) rivera) 00:00: - [facility] [address] [facility] Vitamin B12 Vitamin B12 2-0 No 1000ug Common (Cyanocobal (Cyanocobal 1-07 S pirit rivera) rivera) 00:00: - [facility] [address] [facility] Vitamin B12 Vitamin B12 2022-0 No 1000ug Common (Cyanocobal (Cyanocobal 1-07 S pirit rivera) rivera) 00:00: - [facility] [address] [facility] Vitamin B12 Vitamin B12 2-0 No 1000ug Common (Cyanocobal (Cyanocobal 1-07 S pirit rivera) rivera) 00:00: - [facility] [address] [facility] Vitamin B12 Vitamin B12 2-0 No 1000ug Common (Cyanocobal (Cyanocobal 1-07 S pirit rivera) rivera) 00:00: - [facility] [address] [facility] Vitamin B12 Vitamin B12 2022-0 No 1000ug Common (Cyanocobal (Cyanocobal 1-07 S pirit rivera) rivera) 00:00: - [facility] [address] [facility] Vitamin B12 Vitamin B12 2022-0 No 1000ug Common (Cyanocobal (Cyanocobal 1-07 S pirit rivera) rivera) 00:00: - [facility] [address] [facility] Vitamin B12 Vitamin B12 2022-0 No 1000ug Common (Cyanocobal (Cyanocobal 1-07 S pirit rivera) rivera) 00:00: - [facility] [address] [facility] Vitamin B12 Vitamin B12 2022-0 No 1000ug Common (Cyanocobal (Cyanocobal 1-07 S pirit rivera) rivera) 00:00: - [facility] [address] [facility] Vitamin B12 Vitamin B12 2022-0 No 1000ug Common (Cyanocobal (Cyanocobal 1-07 S pirit rivera) rivera) 00:00: - [facility] [address] [facility] Vitamin B12 Vitamin B12 2021-0 No 1000ug Common (Cyanocobal (Cyanocobal 1-07 S pirit rivera) rviera) 00:00: - [facility] [address] [facility] Vitamin B12 Vitamin B12 2021-0 No 1000ug Common (Cyanocobal (Cyanocobal 1-07 S pirit rivera) rivera) 00:00: - [facility] [address] [facility] Vitamin B12 Vitamin B12 2021-0 No 1000ug Common (Cyanocobal (Cyanocobal 1-07 S pirit rivera) rivera) 00:00: - [facility] [address] [facility] Vitamin B12 Vitamin B12 2021-0 No 1000ug Common (Cyanocobal (Cyanocobal 1-07 S pirit rivera) rivera) 00:00: - [facility] [address] [facility] Vitamin B12 Vitamin B12 2021-0 No 1000ug Common (Cyanocobal (Cyanocobal 1-07 S pirit rivera) rivera) 00:00: - [facility] [address] [facility] Vitamin B12 Vitamin B12 2021-0 No 1000ug Common (Cyanocobal (Cyanocobal 1-07 S pirit rivera) rivera) 00:00: - [facility] [address] [facility] Vitamin B12 Vitamin B12 2021-0 No 1000ug Common (Cyanocobal (Cyanocobal 1-07 S pirit rivera) rivera) 00:00: - [facility] [address] [facility] Vitamin B12 Vitamin B12 2-0 No 1000ug Common (Cyanocobal (Cyanocobal 1-07 S pirit rivera) rivera) 00:00: - [facility] [address] [facility] Vitamin B12 Vitamin B12 2-0 No 1000ug Common (Cyanocobal (Cyanocobal 1-07 S pirit rivera) rivera) 00:00: - [facility] [address] [facility] Vitamin B12 Vitamin B12 2-0 No 1000ug Common (Cyanocobal (Cyanocobal 1-07 S pirit rivera) rivera) 00:00: - [facility] [address] [facility] Vitamin B12 Vitamin B12 2020-1 No 1000ug Common (Cyanocobal (Cyanocobal 2-17 S pirit rivera) rivera) 00:00: - [facility] [address] [facility] Vitamin B12 Vitamin B12 2020-1 No 1000ug Common (Cyanocobal (Cyanocobal 2-17 S pirit rivera) rivera) 00:00: - [facility] [address] [facility] Vitamin B12 Vitamin B12 2020-04 No 1000ug Common (Cyanocobal (Cyanocobal 2-17 S pirit rivera) rivera) 00:00: - [facility] [address] [facility] Vitamin B12 Vitamin B12 2020-04 No 1000ug Common (Cyanocobal (Cyanocobal 2-17 S pirit rivera) rivera) 00:00: - [facility] [address] [facility] Vitamin B12 Vitamin B12 2020-04 No 1000ug Common (Cyanocobal (Cyanocobal 2-17 S pirit rivera) rivera) 00:00: - [facility] [address] [facility] Vitamin B12 Vitamin B12 2020-04 No 1000ug Common (Cyanocobal (Cyanocobal 2-17 S pirit rivera) rivera) 00:00: - [facility] [address] [facility] Vitamin B12 Vitamin B12 2020-04 No 1000ug Common (Cyanocobal (Cyanocobal 2-17 S pirit rivera) rivera) 00:00: - [facility] [address] [facility] Vitamin B12 Vitamin B12 2020-04 No 1000ug Common (Cyanocobal (Cyanocobal 2-17 S pirit rivera) rivera) 00:00: - [facility] [address] [facility] Vitamin B12 Vitamin B12 2020-04 No 1000ug Common (Cyanocobal (Cyanocobal 2-17 S pirit rivera) rivera) 00:00: - [facility] [address] [facility] Vitamin B12 Vitamin B12 2020-04 No 1000ug Common (Cyanocobal (Cyanocobal 2-17 S pirit rivera) rivera) 00:00: - [facility] [address] [facility] Vitamin B12 Vitamin B12 2020-04 No 1000ug Common (Cyanocobal (Cyanocobal 2-17 S pirit rivera) rivera) 00:00: - [facility] [address] [facility] Vitamin B12 Vitamin B12 2020-04 No 1000ug Common (Cyanocobal (Cyanocobal 2-17 S pirit rivera) rivera) 00:00: - [facility] [address] [facility] Vitamin B12 Vitamin B12 2020-04 No 1000ug Common (Cyanocobal (Cyanocobal 2-17 S pirit rivera) rivera) 00:00: - [facility] [address] [facility] Vitamin B12 Vitamin B12 2020-04 No 1000ug Common (Cyanocobal (Cyanocobal 2-17 S pirit rivera) rivera) 00:00: - [facility] [address] [facility] Vitamin B12 Vitamin B12 2020-04 No 1000ug Common (Cyanocobal (Cyanocobal 2-17 S pirit rivera) rivera) 00:00: - [facility] [address] [facility] Vitamin B12 Vitamin B12 2020-04 No 1000ug Common (Cyanocobal (Cyanocobal 2-17 S pirit rivera) rivera) 00:00: - [facility] [address] [facility] Vitamin B12 Vitamin B12 2020-04 No 1000ug Common (Cyanocobal (Cyanocobal 2-17 S pirit rivera) rivera) 00:00: - [facility] [address] [facility] Vitamin B12 Vitamin B12 2020-04 No 1000ug Common (Cyanocobal (Cyanocobal 2-17 S pirit rivera) rivera) 00:00: - [facility] [address] [facility] Vitamin B12 Vitamin B12 2020-04 No 1000ug Common (Cyanocobal (Cyanocobal 2-17 S pirit rivera) rivera) 00:00: - [facility] [address] [facility] Vitamin B12 Vitamin B12 2020-04 No 1000ug Common (Cyanocobal (Cyanocobal 2-17 S pirit rivera) rivera) 00:00: - [facility] [address] [facility] Vitamin B12 Vitamin B12 2020-04 No 1000ug Common (Cyanocobal (Cyanocobal 2-17 S pirit rivera) rivera) 00:00: - [facility] [address] [facility] Vitamin B12 Vitamin B12 2020-04 No 1000ug Common (Cyanocobal (Cyanocobal 2-17 S pirit rivera) rivera) 00:00: - [facility] [address] [facility] Vitamin B12 Vitamin B12 2020-04 No 1000ug Common (Cyanocobal (Cyanocobal 2-17 S pirit rivera) rivera) 00:00: - [facility] [address] [facility] Vitamin B12 Vitamin B12 2020-04 No 1000ug Common (Cyanocobal (Cyanocobal 2-17 S pirit rivera) rivera) 00:00: - [facility] [address] [facility] Vitamin B12 Vitamin B12 2020-04 No 1000ug Common (Cyanocobal (Cyanocobal 2-17 S pirit rivera) rivera) 00:00: - [facility] [address] [facility] Vitamin B12 Vitamin B12 2021-1 No 1000ug Common (Cyanocobal (Cyanocobal 2-17 S pirit rivera) rivera) 00:00: - [facility] [address] [facility] Vitamin B12 Vitamin B12 2020-04 No 1000ug Common (Cyanocobal (Cyanocobal 2-17 S pirit rivera) rivera) 00:00: - [facility] [address] [facility] Vitamin B12 Vitamin B12 2020-04 No 1000ug Common (Cyanocobal (Cyanocobal 2-17 S pirit rivera) rivera) 00:00: - [facility] [address] [facility] Vitamin B12 Vitamin B12 2020-04 No 1000ug Common (Cyanocobal (Cyanocobal 2-17 S pirit rivera) rivera) 00:00: - [facility] [address] [facility] Vitamin B12 Vitamin B12 2020-04 No 1000ug Common (Cyanocobal (Cyanocobal 2-17 S pirit rivera) rivera) 00:00: - [facility] [address] [facility] Vitamin B12 Vitamin B12 2020-04 No 1000ug Common (Cyanocobal (Cyanocobal 2-17 S pirit rivera) rivera) 00:00: - [facility] [address] [facility] Vitamin B12 Vitamin B12 2020-04 No 1000ug Common (Cyanocobal (Cyanocobal 2-17 S pirit rivera) rivera) 00:00: - [facility] [address] [facility] Vitamin B12 Vitamin B12 2020-04 No 1000ug Common (Cyanocobal (Cyanocobal 2-17 S pirit rivera) rivera) 00:00: - [facility] [address] [facility] Vitamin B12 Vitamin B12 2020-04 No 1000ug Common (Cyanocobal (Cyanocobal 2-17 S pirit rivera) rivera) 00:00: - [facility] [address] [facility] Vitamin B12 Vitamin B12 2020-04 No 1000ug Common (Cyanocobal (Cyanocobal 2-17 S pirit rivera) rivera) 00:00: - [facility] [address] [facility] Vitamin B12 Vitamin B12 2020-04 No 1000ug Common (Cyanocobal (Cyanocobal 2-17 S pirit rivera) rivera) 00:00: - [facility] [address] [facility] Vitamin B12 Vitamin B12 2020-04 No 1000ug Common (Cyanocobal (Cyanocobal 2-17 S pirit rivera) rivera) 00:00: - [facility] [address] [facility] Vitamin B12 Vitamin B12 2020-04 No 1000ug Common (Cyanocobal (Cyanocobal 2-03 S pirit rivera) rivera) 00:00: - [facility] [address] [facility] Vitamin B12 Vitamin B12 2020-04 No 1000ug Common (Cyanocobal (Cyanocobal 2-03 S pirit rivera) rivera) 00:00: - [facility] [address] [facility] Vitamin B12 Vitamin B12 2020-04 No 1000ug Common (Cyanocobal (Cyanocobal 2-03 S pirit rivera) rivera) 00:00: - [facility] [address] [facility] Vitamin B12 Vitamin B12 2020-04 No 1000ug Common (Cyanocobal (Cyanocobal 2-03 S pirit rivera) rivera) 00:00: - [facility] [address] [facility] Vitamin B12 Vitamin B12 2020-04 No 1000ug Common (Cyanocobal (Cyanocobal 2-03 S pirit rivera) rivera) 00:00: - [facility] [address] [facility] Vitamin B12 Vitamin B12 2020-04 No 1000ug Common (Cyanocobal (Cyanocobal 2-03 S pirit rivera) rivera) 00:00: - [facility] [address] [facility] Vitamin B12 Vitamin B12 2020-04 No 1000ug Common (Cyanocobal (Cyanocobal 2-03 S pirit rivera) rivera) 00:00: - [facility] [address] [facility] Vitamin B12 Vitamin B12 2020-04 No 1000ug Common (Cyanocobal (Cyanocobal 2-03 S pirit rivera) rivera) 00:00: - [facility] [address] [facility] Vitamin B12 Vitamin B12 2020-04 No 1000ug Common (Cyanocobal (Cyanocobal 2-03 S pirit rivera) rivera) 00:00: - [facility] [address] [facility] Vitamin B12 Vitamin B12 2020-04 No 1000ug Common (Cyanocobal (Cyanocobal 2-03 S pirit rivera) rivera) 00:00: - [facility] [address] [facility] Vitamin B12 Vitamin B12 2020-04 No 1000ug Common (Cyanocobal (Cyanocobal 2-03 S pirit rivera) rivera) 00:00: - [facility] [address] [facility] Vitamin B12 Vitamin B12 2020-04 No 1000ug Common (Cyanocobal (Cyanocobal 2-03 S pirit rivera) rivera) 00:00: - [facility] [address] [facility] Vitamin B12 Vitamin B12 2020-04 No 1000ug Common (Cyanocobal (Cyanocobal 2-03 S pirit rivera) rivera) 00:00: - [facility] [address] [facility] Vitamin B12 Vitamin B12 2020-04 No 1000ug Common (Cyanocobal (Cyanocobal 2-03 S pirit rivera) rivera) 00:00: - [facility] [address] [facility] Vitamin B12 Vitamin B12 2020-04 No 1000ug Common (Cyanocobal (Cyanocobal 2-03 S pirit rivera) rivera) 00:00: - [facility] [address] [facility] Vitamin B12 Vitamin B12 2020-04 No 1000ug Common (Cyanocobal (Cyanocobal 2-03 S pirit rivera) rivera) 00:00: - [facility] [address] [facility] Vitamin B12 Vitamin B12 2020-04 No 1000ug Common (Cyanocobal (Cyanocobal 2-03 S pirit rivera) rivera) 00:00: - [facility] [address] [facility] Vitamin B12 Vitamin B12 2020-04 No 1000ug Common (Cyanocobal (Cyanocobal 2-03 S pirit rivera) rivera) 00:00: - [facility] [address] [facility] Vitamin B12 Vitamin B12 2020-04 No 1000ug Common (Cyanocobal (Cyanocobal 2-03 S pirit rivera) rivera) 00:00: - [facility] [address] [facility] Vitamin B12 Vitamin B12 2020-04 No 1000ug Common (Cyanocobal (Cyanocobal 2-03 S pirit rivera) rivera) 00:00: - [facility] [address] [facility] Vitamin B12 Vitamin B12 2020-04 No 1000ug Common (Cyanocobal (Cyanocobal 2-03 S pirit rivera) rivera) 00:00: - [facility] [address] [facility] Vitamin B12 Vitamin B12 2020-04 No 1000ug Common (Cyanocobal (Cyanocobal 2-03 S pirit rivera) rivera) 00:00: - [facility] [address] [facility] Vitamin B12 Vitamin B12 2020-04 No 1000ug Common (Cyanocobal (Cyanocobal 2-03 S pirit rivera) rivera) 00:00: - [facility] [address] [facility] Vitamin B12 Vitamin B12 2020-04 No 1000ug Common (Cyanocobal (Cyanocobal 2-03 S pirit rivera) rivera) 00:00: - [facility] [address] [facility] Vitamin B12 Vitamin B12 2020-04 No 1000ug Common (Cyanocobal (Cyanocobal 2-03 S pirit rivera) rivera) 00:00: - [facility] [address] [facility] Vitamin B12 Vitamin B12 2020-04 No 1000ug Common (Cyanocobal (Cyanocobal 2-03 S pirit rivera) rivera) 00:00: - [facility] [address] [facility] Vitamin B12 Vitamin B12 2020-04 No 1000ug Common (Cyanocobal (Cyanocobal 2-03 S pirit rivera) rivera) 00:00: - [facility] [address] [facility] Vitamin B12 Vitamin B12 2020-04 No 1000ug Common (Cyanocobal (Cyanocobal 2-03 S pirit rivera) rivera) 00:00: - [facility] [address] [facility] Vitamin B12 Vitamin B12 2020-04 No 1000ug Common (Cyanocobal (Cyanocobal 2-03 S pirit rivera) rivera) 00:00: - [facility] [address] [facility] Vitamin B12 Vitamin B12 2020-04 No 1000ug Common (Cyanocobal (Cyanocobal 2-03 S pirit rivera) rivera) 00:00: - [facility] [address] [facility] Vitamin B12 Vitamin B12 2020-04 No 1000ug Common (Cyanocobal (Cyanocobal 2-03 S pirit rivera) rivera) 00:00: - [facility] [address] [facility] Vitamin B12 Vitamin B12 2020-04 No 1000ug Common (Cyanocobal (Cyanocobal 2-03 S pirit rivera) rivera) 00:00: - [facility] [address] [facility] Vitamin B12 Vitamin B12 2020-04 No 1000ug Common (Cyanocobal (Cyanocobal 2-03 S pirit rivera) rivera) 00:00: - [facility] [address] [facility] Vitamin B12 Vitamin B12 2020-04 No 1000ug Common (Cyanocobal (Cyanocobal 2-03 S pirit rivera) rivera) 00:00: - [facility] [address] [facility] Vitamin B12 Vitamin B12 2020-04 No 1000ug Common (Cyanocobal (Cyanocobal 2-03 S pirit rivera) rivera) 00:00: - [facility] [address] [facility] Vitamin B12 Vitamin B12 2020-04 No 1000ug Common (Cyanocobal (Cyanocobal 2-03 S pirit rivera) rivera) 00:00: - [facility] [address] [facility] Vitamin B12 Vitamin B12 2020-04 No 1000ug Common (Cyanocobal (Cyanocobal 2-03 S pirit rivera) rivera) 00:00: - [facility] [address] [facility] Augmentin Augmentin 2020-041- No 1{table Augmentin 500-125 MG 500-125 MG 05-21 t} 500-125 MG 00:00: 00:00 00 :00 Augmentin Augmentin 2020-04- No 1{table Augmentin 500-125 MG 500-125 MG 05-21 t} 500-125 MG 00:00: 00:00 00 :00 Vitamin B12 Vitamin B12 2020-04 No 1000ug Common (Cyanocobal (Cyanocobal 1-19 S pirit rivera) rivera) 00:00: - [facility] [address] [facility] Vitamin B12 Vitamin B12 2020-04 No 1000ug Common (Cyanocobal (Cyanocobal 1-19 S pirit rivera) rivera) 00:00: - [facility] [address] [facility] Vitamin B12 Vitamin B12 2020-04 No 1000ug Common (Cyanocobal (Cyanocobal 1-19 S pirit rivera) rivera) 00:00: - [facility] [address] [facility] Vitamin B12 Vitamin B12 2020-04 No 1000ug Common (Cyanocobal (Cyanocobal 1-19 S pirit rivera) rivera) 00:00: - [facility] [address] [facility] Vitamin B12 Vitamin B12 2020-04 No 1000ug Common (Cyanocobal (Cyanocobal 1-19 S pirit rivera) rivera) 00:00: - [facility] [address] [facility] Vitamin B12 Vitamin B12 2020-04 No 1000ug Common (Cyanocobal (Cyanocobal 1-19 S pirit rivera) rivera) 00:00: - [facility] [address] [facility] Vitamin B12 Vitamin B12 2020-04 No 1000ug Common (Cyanocobal (Cyanocobal 1-19 S pirit rivera) rivera) 00:00: - [facility] [address] [facility] Vitamin B12 Vitamin B12 2020-04 No 1000ug Common (Cyanocobal (Cyanocobal 1-19 S pirit rivera) rivera) 00:00: - [facility] [address] [facility] Vitamin B12 Vitamin B12 2020-04 No 1000ug Common (Cyanocobal (Cyanocobal 1-19 S pirit rivera) rivera) 00:00: - [facility] [address] [facility] Vitamin B12 Vitamin B12 2020-04 No 1000ug Common (Cyanocobal (Cyanocobal 1-19 S pirit rivera) rivera) 00:00: - [facility] [address] [facility] Vitamin B12 Vitamin B12 2020-04 No 1000ug Common (Cyanocobal (Cyanocobal 1-19 S pirit rivera) rivera) 00:00: - [facility] [address] [facility] Vitamin B12 Vitamin B12 2020-04 No 1000ug Common (Cyanocobal (Cyanocobal 1-19 S pirit rivera) rivera) 00:00: - [facility] [address] [facility] Vitamin B12 Vitamin B12 2020-04 No 1000ug Common (Cyanocobal (Cyanocobal 1-19 S pirit rivera) rivera) 00:00: - [facility] [address] [facility] Vitamin B12 Vitamin B12 2020-04 No 1000ug Common (Cyanocobal (Cyanocobal 1-19 S pirit rivera) rivera) 00:00: - [facility] [address] [facility] Vitamin B12 Vitamin B12 2020-04 No 1000ug Common (Cyanocobal (Cyanocobal 1-19 S pirit rivera) rivera) 00:00: - [facility] [address] [facility] Vitamin B12 Vitamin B12 2020-04 No 1000ug Common (Cyanocobal (Cyanocobal 1-19 S pirit rivera) rivera) 00:00: - [facility] [address] [facility] Vitamin B12 Vitamin B12 2020-04 No 1000ug Common (Cyanocobal (Cyanocobal 1-19 S pirit rivera) rivera) 00:00: - [facility] [address] [facility] Vitamin B12 Vitamin B12 2020-04 No 1000ug Common (Cyanocobal (Cyanocobal 1-19 S pirit rivera) rivera) 00:00: - [facility] [address] [facility] Vitamin B12 Vitamin B12 2020-04 No 1000ug Common (Cyanocobal (Cyanocobal 1-19 S pirit rivera) rivera) 00:00: - [facility] [address] [facility] Vitamin B12 Vitamin B12 2020-04 No 1000ug Common (Cyanocobal (Cyanocobal 1-19 S pirit rivera) rivera) 00:00: - [facility] [address] [facility] Vitamin B12 Vitamin B12 2020-04 No 1000ug Common (Cyanocobal (Cyanocobal 1-19 S pirit rivera) rivera) 00:00: - [facility] [address] [facility] Vitamin B12 Vitamin B12 2020-04 No 1000ug Common (Cyanocobal (Cyanocobal 1-19 S pirit rivera) rivera) 00:00: - [facility] [address] [facility] Vitamin B12 Vitamin B12 2020-04 No 1000ug Common (Cyanocobal (Cyanocobal 1-19 S pirit rivera) rivera) 00:00: - [facility] [address] [facility] Vitamin B12 Vitamin B12 2020-04 No 1000ug Common (Cyanocobal (Cyanocobal 1-19 S pirit rivera) rivera) 00:00: - [facility] [address] [facility] Vitamin B12 Vitamin B12 2020-04 No 1000ug Common (Cyanocobal (Cyanocobal 1-19 S pirit rivera) rivera) 00:00: - [facility] [address] [facility] Vitamin B12 Vitamin B12 2020-04 No 1000ug Common (Cyanocobal (Cyanocobal 1-19 S pirit rivera) rivera) 00:00: - [facility] [address] [facility] Vitamin B12 Vitamin B12 2020-04 No 1000ug Common (Cyanocobal (Cyanocobal 1-19 S pirit rivera) rivera) 00:00: - [facility] [address] [facility] Vitamin B12 Vitamin B12 2020-04 No 1000ug Common (Cyanocobal (Cyanocobal 1-19 S pirit rivera) rivera) 00:00: - [facility] [address] [facility] Vitamin B12 Vitamin B12 2020-04 No 1000ug Common (Cyanocobal (Cyanocobal 1-19 S pirit rivera) rivera) 00:00: - [facility] [address] [facility] Vitamin B12 Vitamin B12 2020-04 No 1000ug Common (Cyanocobal (Cyanocobal 1-19 S pirit rivera) rivera) 00:00: - [facility] [address] [facility] Vitamin B12 Vitamin B12 2020-04 No 1000ug Common (Cyanocobal (Cyanocobal 1-19 S pirit rivera) rivera) 00:00: - [facility] [address] [facility] Vitamin B12 Vitamin B12 2020-04 No 1000ug Common (Cyanocobal (Cyanocobal 1-19 S pirit rivera) rivera) 00:00: - [facility] [address] [facility] Vitamin B12 Vitamin B12 2020-04 No 1000ug Common (Cyanocobal (Cyanocobal 1-19 S pirit rivera) rivera) 00:00: - [facility] [address] [facility] Vitamin B12 Vitamin B12 2020-04 No 1000ug Common (Cyanocobal (Cyanocobal 1-19 S pirit rivera) rivera) 00:00: - [facility] [address] [facility] Vitamin B12 Vitamin B12 2020-04 No 1000ug Common (Cyanocobal (Cyanocobal 1-19 S pirit rivera) rivera) 00:00: - [facility] [address] [facility] Vitamin B12 Vitamin B12 2020-04 No 1000ug Common (Cyanocobal (Cyanocobal 1-19 S pirit rivera) rivera) 00:00: - [facility] [address] [facility] Vitamin B12 Vitamin B12 2020-04 No 1000ug Common (Cyanocobal (Cyanocobal 1-19 S pirit rivera) rivera) 00:00: - [facility] [address] [facility] Vitamin B12 Vitamin B12 2020-04 No 1000ug Common (Cyanocobal (Cyanocobal 0-20 S pirit rivera) rivera) 00:00: - [facility] [address] [facility] Vitamin B12 Vitamin B12 2020-04 No 1000ug Common (Cyanocobal (Cyanocobal 0-20 S pirit rivera) rivera) 00:00: - [facility] [address] [facility] Vitamin B12 Vitamin B12 2020-04 No 1000ug Common (Cyanocobal (Cyanocobal 0-20 S pirit rivera) rivera) 00:00: - [facility] [address] [facility] Vitamin B12 Vitamin B12 2020-04 No 1000ug Common (Cyanocobal (Cyanocobal 0-20 S pirit rivera) rivera) 00:00: - [facility] [address] [facility] Vitamin B12 Vitamin B12 2020-04 No 1000ug Common (Cyanocobal (Cyanocobal 0-20 S pirit rivera) rivera) 00:00: - [facility] [address] [facility] Vitamin B12 Vitamin B12 2020-04 No 1000ug Common (Cyanocobal (Cyanocobal 0-20 S pirit rivera) rivera) 00:00: - [facility] [address] [facility] Vitamin B12 Vitamin B12 2020-04 No 1000ug Common (Cyanocobal (Cyanocobal 0-20 S pirit rivera) rivera) 00:00: - [facility] [address] [facility] Vitamin B12 Vitamin B12 2021-1 No 1000ug Common (Cyanocobal (Cyanocobal 0-20 S pirit rivera) irvera) 00:00: - [facility] [address] [facility] Vitamin B12 Vitamin B12 2020-04 No 1000ug Common (Cyanocobal (Cyanocobal 0-20 S pirit rivera) rivera) 00:00: - [facility] [address] [facility] Vitamin B12 Vitamin B12 2020-04 No 1000ug Common (Cyanocobal (Cyanocobal 0-20 S pirit rivera) rivera) 00:00: - [facility] [address] [facility] Vitamin B12 Vitamin B12 2020-04 No 1000ug Common (Cyanocobal (Cyanocobal 0-20 S pirit rivera) rivera) 00:00: - [facility] [address] [facility] Vitamin B12 Vitamin B12 2020-04 No 1000ug Common (Cyanocobal (Cyanocobal 0-20 S pirit rivera) rivera) 00:00: - [facility] [address] [facility] Vitamin B12 Vitamin B12 2020-04 No 1000ug Common (Cyanocobal (Cyanocobal 0-20 S pirit rivera) rivera) 00:00: - [facility] [address] [facility] Vitamin B12 Vitamin B12 2020-04 No 1000ug Common (Cyanocobal (Cyanocobal 0-20 S pirit rivera) rivera) 00:00: - [facility] [address] [facility] Vitamin B12 Vitamin B12 2020-04 No 1000ug Common (Cyanocobal (Cyanocobal 0-20 S pirit rivera) rivera) 00:00: - [facility] [address] [facility] Vitamin B12 Vitamin B12 2020-04 No 1000ug Common (Cyanocobal (Cyanocobal 0-20 S pirit rivera) rivera) 00:00: - [facility] [address] [facility] Vitamin B12 Vitamin B12 2020-04 No 1000ug Common (Cyanocobal (Cyanocobal 0-20 S pirit rivera) rivera) 00:00: - [facility] [address] [facility] Vitamin B12 Vitamin B12 2020-04 No 1000ug Common (Cyanocobal (Cyanocobal 0-20 S pirit rivera) rivera) 00:00: - [facility] [address] [facility] Vitamin B12 Vitamin B12 2020-04 No 1000ug Common (Cyanocobal (Cyanocobal 0-20 S pirit rivera) rivera) 00:00: - [facility] [address] [facility] Vitamin B12 Vitamin B12 2020-04 No 1000ug Common (Cyanocobal (Cyanocobal 0-20 S pirit rivera) rivera) 00:00: - [facility] [address] [facility] Vitamin B12 Vitamin B12 2020-04 No 1000ug Common (Cyanocobal (Cyanocobal 0-20 S pirit rivera) rivera) 00:00: - [facility] [address] [facility] Vitamin B12 Vitamin B12 2020-04 No 1000ug Common (Cyanocobal (Cyanocobal 0-20 S pirit rivera) rivera) 00:00: - [facility] [address] [facility] Vitamin B12 Vitamin B12 2020-04 No 1000ug Common (Cyanocobal (Cyanocobal 0-20 S pirit rivera) rivera) 00:00: - [facility] [address] [facility] Vitamin B12 Vitamin B12 2020-04 No 1000ug Common (Cyanocobal (Cyanocobal 0-20 S pirit rivera) rivera) 00:00: - [facility] [address] [facility] Vitamin B12 Vitamin B12 2020-04 No 1000ug Common (Cyanocobal (Cyanocobal 0-20 S pirit rivera) rivera) 00:00: - [facility] [address] [facility] Vitamin B12 Vitamin B12 2020-04 No 1000ug Common (Cyanocobal (Cyanocobal 0-20 S pirit rivera) rivera) 00:00: - [facility] [address] [facility] Vitamin B12 Vitamin B12 2020-04 No 1000ug Common (Cyanocobal (Cyanocobal 0-20 S pirit rivera) rivera) 00:00: - [facility] [address] [facility] Vitamin B12 Vitamin B12 2020-04 No 1000ug Common (Cyanocobal (Cyanocobal 0-20 S pirit rivera) rivera) 00:00: - [facility] [address] [facility] Vitamin B12 Vitamin B12 2020-04 No 1000ug Common (Cyanocobal (Cyanocobal 0-20 S pirit rivera) rivera) 00:00: - [facility] [address] [facility] Vitamin B12 Vitamin B12 2020-04 No 1000ug Common (Cyanocobal (Cyanocobal 0-20 S pirit rivera) rivera) 00:00: - [facility] [address] [facility] Vitamin B12 Vitamin B12 2020-04 No 1000ug Common (Cyanocobal (Cyanocobal 0-20 S pirit rivera) rivera) 00:00: - [facility] [address] [facility] Vitamin B12 Vitamin B12 2021-1 No 1000ug Common (Cyanocobal (Cyanocobal 0-20 S pirit rivera) rivera) 00:00: - [facility] [address] [facility] Vitamin B12 Vitamin B12 2020-1 No 1000ug Common (Cyanocobal (Cyanocobal 0-20 S pirit rivera) rivera) 00:00: - [facility] [address] [facility] Vitamin B12 Vitamin B12 2020-1 No 1000ug Common (Cyanocobal (Cyanocobal 0-20 S pirit rivera) rivera) 00:00: - [facility] [address] [facility] Vitamin B12 Vitamin B12 2020-1 No 1000ug Common (Cyanocobal (Cyanocobal 0-20 S pirit rivera) rivera) 00:00: - [facility] [address] [facility] Vitamin B12 Vitamin B12 2020-1 No 1000ug Common (Cyanocobal (Cyanocobal 0-20 S pirit rivera) rivera) 00:00: - [facility] [address] [facility] Vitamin B12 Vitamin B12 2020-1 No 1000ug Common (Cyanocobal (Cyanocobal 0-20 S pirit rivera) rivera) 00:00: - [facility] [address] [facility] Vitamin B12 Vitamin B12 2020-0 No 1000ug Common (Cyanocobal (Cyanocobal 8-25 S pirit rivera) rivera) 00:00: - [facility] [address] [facility] Vitamin B12 Vitamin B12 2020-0 No 1000ug Common (Cyanocobal (Cyanocobal 8-25 S pirit rivera) rivera) 00:00: - [facility] [address] [facility] Vitamin B12 Vitamin B12 2020-0 No 1000ug Common (Cyanocobal (Cyanocobal 8-25 S pirit rivera) rivera) 00:00: - [facility] [address] [facility] Vitamin B12 Vitamin B12 2020-0 No 1000ug Common (Cyanocobal (Cyanocobal 8-25 S pirit rivera) rivera) 00:00: - [facility] [address] [facility] Vitamin B12 Vitamin B12 2020-0 No 1000ug Common (Cyanocobal (Cyanocobal 8-25 S pirit rivera) rivera) 00:00: - [facility] [address] [facility] Vitamin B12 Vitamin B12 2020-0 No 1000ug Common (Cyanocobal (Cyanocobal 8-25 S pirit rivera) rivera) 00:00: - [facility] [address] [facility] Vitamin B12 Vitamin B12 2021-0 No 1000ug Common (Cyanocobal (Cyanocobal 8-25 S pirit rivera) rivera) 00:00: - [facility] [address] [facility] Vitamin B12 Vitamin B12 2020-0 No 1000ug Common (Cyanocobal (Cyanocobal 8-25 S pirit rivera) rivera) 00:00: - [facility] [address] [facility] Vitamin B12 Vitamin B12 1-0 No 1000ug Common (Cyanocobal (Cyanocobal 8-25 S pirit rivera) rivera) 00:00: - [facility] [address] [facility] Vitamin B12 Vitamin B12 2020-0 No 1000ug Common (Cyanocobal (Cyanocobal 8-25 S pirit rivera) rivera) 00:00: - [facility] [address] [facility] Vitamin B12 Vitamin B12 2020-0 No 1000ug Common (Cyanocobal (Cyanocobal 8-25 S pirit rivera) rivera) 00:00: - [facility] [address] [facility] Vitamin B12 Vitamin B12 2020-0 No 1000ug Common (Cyanocobal (Cyanocobal 8-25 S pirit rivera) rivera) 00:00: - [facility] [address] [facility] Vitamin B12 Vitamin B12 2020-0 No 1000ug Common (Cyanocobal (Cyanocobal 8-25 S pirit rivera) rivera) 00:00: - [facility] [address] [facility] Vitamin B12 Vitamin B12 1-0 No 1000ug Common (Cyanocobal (Cyanocobal 8-25 S pirit rivera) rivera) 00:00: - [facility] [address] [facility] Vitamin B12 Vitamin B12 1-0 No 1000ug Common (Cyanocobal (Cyanocobal 8-25 S pirit rivera) rivera) 00:00: - [facility] [address] [facility] Vitamin B12 Vitamin B12 2021-0 No 1000ug Common (Cyanocobal (Cyanocobal 8-25 S pirit rivera) rivera) 00:00: - [facility] [address] [facility] Vitamin B12 Vitamin B12 2021-0 No 1000ug Common (Cyanocobal (Cyanocobal 8-25 S pirit rivera) rivera) 00:00: - [facility] [address] [facility] Vitamin B12 Vitamin B12 2021-0 No 1000ug Common (Cyanocobal (Cyanocobal 8-25 S pirit rivera) rivera) 00:00: - [facility] [address] [facility] Vitamin B12 Vitamin B12 1-0 No 1000ug Common (Cyanocobal (Cyanocobal 8-25 S pirit rivera) rivera) 00:00: - [facility] [address] [facility] Vitamin B12 Vitamin B12 202-0 No 1000ug Common (Cyanocobal (Cyanocobal 8-25 S pirit rivera) rivera) 00:00: - [facility] [address] [facility] Vitamin B12 Vitamin B12 2020-0 No 1000ug Common (Cyanocobal (Cyanocobal 8-25 S pirit rivera) rivera) 00:00: - [facility] [address] [facility] Vitamin B12 Vitamin B12 2020-0 No 1000ug Common (Cyanocobal (Cyanocobal 8-25 S pirit rivera) rivera) 00:00: - [facility] [address] [facility] Vitamin B12 Vitamin B12 2020-0 No 1000ug Common (Cyanocobal (Cyanocobal 8-25 S pirit rivera) rivera) 00:00: - [facility] [address] [facility] Vitamin B12 Vitamin B12 2020-0 No 1000ug Common (Cyanocobal (Cyanocobal 8-25 S pirit rivera) rivera) 00:00: - [facility] [address] [facility] Vitamin B12 Vitamin B12 2020-0 No 1000ug Common (Cyanocobal (Cyanocobal 8-25 S pirit rivera) rivera) 00:00: - [facility] [address] [facility] Vitamin B12 Vitamin B12 2020-0 No 1000ug Common (Cyanocobal (Cyanocobal 8-25 S pirit rivera) rivera) 00:00: - [facility] [address] [facility] Vitamin B12 Vitamin B12 2020-0 No 1000ug Common (Cyanocobal (Cyanocobal 8-25 S pirit rivera) rivera) 00:00: - [facility] [address] [facility] Vitamin B12 Vitamin B12 1-0 No 1000ug Common (Cyanocobal (Cyanocobal 8-25 S pirit rivera) rivera) 00:00: - [facility] [address] [facility] Vitamin B12 Vitamin B12 2021-0 No 1000ug Common (Cyanocobal (Cyanocobal 8-25 S pirit rivera) rivera) 00:00: - [facility] [address] [facility] Vitamin B12 Vitamin B12 2021-0 No 1000ug Common (Cyanocobal (Cyanocobal 8-25 S pirit rivera) rivera) 00:00: - [facility] [address] [facility] Vitamin B12 Vitamin B12 2020-0 No 1000ug Common (Cyanocobal (Cyanocobal 8-25 S pirit rivera) rivera) 00:00: - [facility] [address] [facility] Vitamin B12 Vitamin B12 2020-0 No 1000ug Common (Cyanocobal (Cyanocobal 8-25 S pirit rivera) rivera) 00:00: - [facility] [address] [facility] Vitamin B12 Vitamin B12 2020-0 No 1000ug Common (Cyanocobal (Cyanocobal 8-25 S pirit rivera) rivera) 00:00: - [facility] [address] [facility] Vitamin B12 Vitamin B12 2020-0 No 1000ug Common (Cyanocobal (Cyanocobal 8-25 S pirit rivera) rivera) 00:00: - [facility] [address] [facility] Vitamin B12 Vitamin B12 2020-0 No 1000ug Common (Cyanocobal (Cyanocobal 8-25 S pirit rivera) rivera) 00:00: - [facility] [address] [facility] Vitamin B12 Vitamin B12 2020-0 No 1000ug Common (Cyanocobal (Cyanocobal 8-25 S pirit rivera) rivera) 00:00: - [facility] [address] [facility] Vitamin B12 Vitamin B12 2020-0 No 1000ug Common (Cyanocobal (Cyanocobal 8-25 S pirit rivera) rivera) 00:00: - [facility] [address] [facility] Vitamin B12 Vitamin B12 1-0 No 1000ug Common (Cyanocobal (Cyanocobal 8-11 S pirit rivera) rivera) 00:00: - [facility] [address] [facility] Vitamin B12 Vitamin B12 2020-0 No 1000ug Common (Cyanocobal (Cyanocobal 8-11 S pirit rivera) rivera) 00:00: - [facility] [address] [facility] Vitamin B12 Vitamin B12 1-0 No 1000ug Common (Cyanocobal (Cyanocobal 8-11 S pirit rivera) rivera) 00:00: - [facility] [address] [facility] Vitamin B12 Vitamin B12 2021-0 No 1000ug Common (Cyanocobal (Cyanocobal 8-11 S pirit rivera) rivera) 00:00: - [facility] [address] [facility] Vitamin B12 Vitamin B12 2021-0 No 1000ug Common (Cyanocobal (Cyanocobal 8-11 S pirit rivera) rivera) 00:00: - [facility] [address] [facility] Vitamin B12 Vitamin B12 2021-0 No 1000ug Common (Cyanocobal (Cyanocobal 8-11 S pirit rivera) rivera) 00:00: - [facility] [address] [facility] Vitamin B12 Vitamin B12 2021-0 No 1000ug Common (Cyanocobal (Cyanocobal 8-11 S pirit rivera) rivera) 00:00: - [facility] [address] [facility] Vitamin B12 Vitamin B12 1-0 No 1000ug Common (Cyanocobal (Cyanocobal 8-11 S pirit rivera) rivera) 00:00: - [facility] [address] [facility] Vitamin B12 Vitamin B12 1-0 No 1000ug Common (Cyanocobal (Cyanocobal 8-11 S pirit rivera) rivera) 00:00: - [facility] [address] [facility] Vitamin B12 Vitamin B12 1-0 No 1000ug Common (Cyanocobal (Cyanocobal 8-11 S pirit rivera) rivera) 00:00: - [facility] [address] [facility] Vitamin B12 Vitamin B12 1-0 No 1000ug Common (Cyanocobal (Cyanocobal 8-11 S pirit rivera) rivera) 00:00: - [facility] [address] [facility] Vitamin B12 Vitamin B12 1-0 No 1000ug Common (Cyanocobal (Cyanocobal 8-11 S pirit rivera) rivera) 00:00: - [facility] [address] [facility] Vitamin B12 Vitamin B12 1-0 No 1000ug Common (Cyanocobal (Cyanocobal 8-11 S pirit rivera) rivera) 00:00: - [facility] [address] [facility] Vitamin B12 Vitamin B12 1-0 No 1000ug Common (Cyanocobal (Cyanocobal 8-11 S pirit rivera) rivera) 00:00: - [facility] [address] [facility] Vitamin B12 Vitamin B12 2021-0 No 1000ug Common (Cyanocobal (Cyanocobal 8-11 S pirit rivera) rivera) 00:00: - [facility] [address] [facility] Vitamin B12 Vitamin B12 2021-0 No 1000ug Common (Cyanocobal (Cyanocobal 8-11 S pirit rivera) rivera) 00:00: - [facility] [address] [facility] Vitamin B12 Vitamin B12 2021-0 No 1000ug Common (Cyanocobal (Cyanocobal 8-11 S pirit rivera) rivera) 00:00: - [facility] [address] [facility] Vitamin B12 Vitamin B12 1-0 No 1000ug Common (Cyanocobal (Cyanocobal 8-11 S pirit rivera) rivera) 00:00: - [facility] [address] [facility] Vitamin B12 Vitamin B12 1-0 No 1000ug Common (Cyanocobal (Cyanocobal 8-11 S pirit rivera) rivera) 00:00: - [facility] [address] [facility] Vitamin B12 Vitamin B12 2020-0 No 1000ug Common (Cyanocobal (Cyanocobal 8-11 S pirit rivera) rviera) 00:00: - [facility] [address] [facility] Vitamin B12 Vitamin B12 2020-0 No 1000ug Common (Cyanocobal (Cyanocobal 8-11 S pirit rivera) rivera) 00:00: - [facility] [address] [facility] Vitamin B12 Vitamin B12 2020-0 No 1000ug Common (Cyanocobal (Cyanocobal 8-11 S pirit rivera) rivera) 00:00: - [facility] [address] [facility] Vitamin B12 Vitamin B12 2020-0 No 1000ug Common (Cyanocobal (Cyanocobal 8-11 S pirit rivera) rivera) 00:00: - [facility] [address] [facility] Vitamin B12 Vitamin B12 2020-0 No 1000ug Common (Cyanocobal (Cyanocobal 8-11 S pirit rivera) rivera) 00:00: - [facility] [address] [facility] Vitamin B12 Vitamin B12 1-0 No 1000ug Common (Cyanocobal (Cyanocobal 8-11 S pirit rivera) rivera) 00:00: - [facility] [address] [facility] Vitamin B12 Vitamin B12 1-0 No 1000ug Common (Cyanocobal (Cyanocobal 8-11 S pirit rivera) rivera) 00:00: - [facility] [address] [facility] Vitamin B12 Vitamin B12 1-0 No 1000ug Common (Cyanocobal (Cyanocobal 8-11 S pirit rivera) rivera) 00:00: - [facility] [address] [facility] Vitamin B12 Vitamin B12 2021-0 No 1000ug Common (Cyanocobal (Cyanocobal 8-11 S pirit rivera) rivera) 00:00: - [facility] [address] [facility] Vitamin B12 Vitamin B12 1-0 No 1000ug Common (Cyanocobal (Cyanocobal 8-11 S pirit rivera) rivera) 00:00: - [facility] [address] [facility] Vitamin B12 Vitamin B12 1-0 No 1000ug Common (Cyanocobal (Cyanocobal 8-11 S pirit rivera) rivera) 00:00: - [facility] [address] [facility] Vitamin B12 Vitamin B12 2021-0 No 1000ug Common (Cyanocobal (Cyanocobal 8-11 S pirit rivera) rivera) 00:00: - [facility] [address] [facility] Vitamin B12 Vitamin B12 1-0 No 1000ug Common (Cyanocobal (Cyanocobal 8-11 S pirit rivera) rivera) 00:00: - [facility] [address] [facility] Vitamin B12 Vitamin B12 1-0 No 1000ug Common (Cyanocobal (Cyanocobal 8-11 S pirit rivera) rivera) 00:00: - [facility] [address] [facility] Vitamin B12 Vitamin B12 1-0 No 1000ug Common (Cyanocobal (Cyanocobal 8-11 S pirit rivera) rivera) 00:00: - [facility] [address] [facility] Vitamin B12 Vitamin B12 1-0 No 1000ug Common (Cyanocobal (Cyanocobal 8-11 S pirit rivera) rivera) 00:00: - [facility] [address] [facility] Vitamin B12 Vitamin B12 1-0 No 1000ug Common (Cyanocobal (Cyanocobal 8-11 S pirit rivera) rivera) 00:00: - [facility] [address] [facility] Vitamin B12 Vitamin B12 1-0 No 1000ug Common (Cyanocobal (Cyanocobal 8-11 S pirit rivera) rivera) 00:00: - [facility] [address] [facility] CeleBREX CeleBREX 2020-0 2021- No 1{capsu CeleBREX 200 MG 200 MG 12-08 le_with 200 MG 00:00: 00:00 _food} 00 :00 CeleBREX CeleBREX 2020-0 2021- No 1{capsu CeleBREX 200 MG 200 MG 12-08 le_with 200 MG 00:00: 00:00 _food} 00 :00 CeleBREX CeleBREX 2020-0 2021- No 1{capsu CeleBREX 200 MG 200 MG 12-08 le_with 200 MG 00:00: 00:00 _food} 00 :00 Vitamin B12 Vitamin B12 2020-0 No 1000ug Common (Cyanocobal (Cyanocobal 7-22 S pirit rivera) rivera) 00:00: - [facility] [address] [facility] Vitamin B12 Vitamin B12 1-0 No 1000ug Common (Cyanocobal (Cyanocobal 7-22 S pirit rivera) rivera) 00:00: - [facility] [address] [facility] Vitamin B12 Vitamin B12 2020-0 No 1000ug Common (Cyanocobal (Cyanocobal 7-22 S pirit rivera) rivera) 00:00: - [facility] [address] [facility] Vitamin B12 Vitamin B12 2020-0 No 1000ug Common (Cyanocobal (Cyanocobal 7-22 S pirit rivera) rivera) 00:00: - [facility] [address] [facility] Vitamin B12 Vitamin B12 2020-0 No 1000ug Common (Cyanocobal (Cyanocobal 7-22 S pirit rivera) rivera) 00:00: - [facility] [address] [facility] Vitamin B12 Vitamin B12 2020-0 No 1000ug Common (Cyanocobal (Cyanocobal 7-22 S pirit rivera) rivera) 00:00: - [facility] [address] [facility] Vitamin B12 Vitamin B12 2020-0 No 1000ug Common (Cyanocobal (Cyanocobal 7-22 S pirit rivera) rivera) 00:00: - [facility] [address] [facility] Vitamin B12 Vitamin B12 2020-0 No 1000ug Common (Cyanocobal (Cyanocobal 7-22 S pirit rivera) rivera) 00:00: - [facility] [address] [facility] Vitamin B12 Vitamin B12 2020-0 No 1000ug Common (Cyanocobal (Cyanocobal 7-22 S pirit rivera) rivera) 00:00: - [facility] [address] [facility] Vitamin B12 Vitamin B12 1-0 No 1000ug Common (Cyanocobal (Cyanocobal 7-22 S pirit rivera) rivera) 00:00: - [facility] [address] [facility] Vitamin B12 Vitamin B12 2021-0 No 1000ug Common (Cyanocobal (Cyanocobal 7-22 S pirit rivera) rivera) 00:00: - [facility] [address] [facility] Vitamin B12 Vitamin B12 2021-0 No 1000ug Common (Cyanocobal (Cyanocobal 7-22 S pirit rivera) rivera) 00:00: - [facility] [address] [facility] Vitamin B12 Vitamin B12 2021-0 No 1000ug Common (Cyanocobal (Cyanocobal 7-22 S pirit rivera) rivera) 00:00: - [facility] [address] [facility] Vitamin B12 Vitamin B12 1-0 No 1000ug Common (Cyanocobal (Cyanocobal 7-22 S pirit rivera) rivera) 00:00: - [facility] [address] [facility] Vitamin B12 Vitamin B12 1-0 No 1000ug Common (Cyanocobal (Cyanocobal 7-22 S pirit rivera) rivera) 00:00: - [facility] [address] [facility] Vitamin B12 Vitamin B12 2020-0 No 1000ug Common (Cyanocobal (Cyanocobal 7-22 S pirit rivera) rivera) 00:00: - [facility] [address] [facility] Vitamin B12 Vitamin B12 2020-0 No 1000ug Common (Cyanocobal (Cyanocobal 7-22 S pirit rivera) rivera) 00:00: - [facility] [address] [facility] Vitamin B12 Vitamin B12 2020-0 No 1000ug Common (Cyanocobal (Cyanocobal 7-22 S pirit rivera) rivera) 00:00: - [facility] [address] [facility] Vitamin B12 Vitamin B12 1-0 No 1000ug Common (Cyanocobal (Cyanocobal 7-22 S pirit rivera) rivera) 00:00: - [facility] [address] [facility] Vitamin B12 Vitamin B12 1-0 No 1000ug Common (Cyanocobal (Cyanocobal 7-22 S pirit rivera) rivera) 00:00: - [facility] [address] [facility] Vitamin B12 Vitamin B12 1-0 No 1000ug Common (Cyanocobal (Cyanocobal 7-22 S pirit rivera) rivera) 00:00: - [facility] [address] [facility] Vitamin B12 Vitamin B12 2021-0 No 1000ug Common (Cyanocobal (Cyanocobal 7-22 S pirit rivera) rivera) 00:00: - [facility] [address] [facility] Vitamin B12 Vitamin B12 2021-0 No 1000ug Common (Cyanocobal (Cyanocobal 7-22 S pirit rivera) rivera) 00:00: - [facility] [address] [facility] Vitamin B12 Vitamin B12 2021-0 No 1000ug Common (Cyanocobal (Cyanocobal 7-22 S pirit rivera) rivera) 00:00: - [facility] [address] [facility] Vitamin B12 Vitamin B12 1-0 No 1000ug Common (Cyanocobal (Cyanocobal 7-22 S pirit rivera) rivera) 00:00: - [facility] [address] [facility] Vitamin B12 Vitamin B12 1-0 No 1000ug Common (Cyanocobal (Cyanocobal 7-22 S pirit rivera) rivera) 00:00: - [facility] [address] [facility] Vitamin B12 Vitamin B12 2020-0 No 1000ug Common (Cyanocobal (Cyanocobal 7-22 S pirit rivera) rivera) 00:00: - [facility] [address] [facility] Vitamin B12 Vitamin B12 2020-0 No 1000ug Common (Cyanocobal (Cyanocobal 7-22 S pirit rivera) rivera) 00:00: - [facility] [address] [facility] Vitamin B12 Vitamin B12 2020-0 No 1000ug Common (Cyanocobal (Cyanocobal 7-22 S pirit rivera) rivera) 00:00: - [facility] [address] [facility] Vitamin B12 Vitamin B12 1-0 No 1000ug Common (Cyanocobal (Cyanocobal 7-22 S pirit rivera) rivera) 00:00: - [facility] [address] [facility] Vitamin B12 Vitamin B12 1-0 No 1000ug Common (Cyanocobal (Cyanocobal 7-22 S pirit rivera) rivera) 00:00: - [facility] [address] [facility] Vitamin B12 Vitamin B12 1-0 No 1000ug Common (Cyanocobal (Cyanocobal 7-22 S pirit rivera) rivera) 00:00: - [facility] [address] [facility] Vitamin B12 Vitamin B12 1-0 No 1000ug Common (Cyanocobal (Cyanocobal 7-22 S pirit rivera) rivera) 00:00: - [facility] [address] [facility] Vitamin B12 Vitamin B12 2021-0 No 1000ug Common (Cyanocobal (Cyanocobal 7-22 S pirit rivera) rivera) 00:00: - [facility] [address] [facility] Vitamin B12 Vitamin B12 2021-0 No 1000ug Common (Cyanocobal (Cyanocobal 7-22 S pirit rivera) rivera) 00:00: - [facility] [address] [facility] Vitamin B12 Vitamin B12 2021-0 No 1000ug Common (Cyanocobal (Cyanocobal 7-22 S pirit rivera) rivera) 00:00: - [facility] Vitamin B12 Vitamin B12 0 No 1000ug Common (Cyanocobal (Cyanocobal 7-22 S pirit rivera) rivera) 00:00: - [facility] LORazepam LORazepam 0 No QD LORazepam 0.5 MG 0.5 MG 7-14 0.5 MG 00:: LORazepam LORazepam 2020-0 No QD LORazepam 0.5 MG 0.5 MG 7-14 0.5 MG 00:: LORazepam LORazepam 0 No QD LORazepam 0.5 MG 0.5 MG 7-14 0.5 MG 00:: LORazepam LORazepam 0 No QD LORazepam 0.5 MG 0.5 MG 7-14 0.5 MG 00:: LORazepam LORazepam 0 No QD LORazepam 0.5 MG 0.5 MG 7-14 0.5 MG 00:: LORazepam LORazepam 2020-0 No QD LORazepam 0.5 MG 0.5 MG 7-14 0.5 MG 00:: LORazepam LORazepam 0 No QD LORazepam 0.5 MG 0.5 MG 7-14 0.5 MG 00:: LORazepam LORazepam 0 No QD LORazepam 0.5 MG 0.5 MG 7-14 0.5 MG 00:: LORazepam LORazepam 2020-0 No QD LORazepam 0.5 MG 0.5 MG 7-14 0.5 MG 00:: LORazepam LORazepam 0 No QD LORazepam 0.5 MG 0.5 MG 7-14 0.5 MG 00:: LORazepam LORazepam 2020-0 No QD LORazepam 0.5 MG 0.5 MG 7-14 0.5 MG 00:00: LORazepam LORazepam 2020-0 No QD LORazepam 0.5 MG 0.5 MG 7-14 0.5 MG 00:00: LORazepam LORazepam 0 No QD LORazepam 0.5 MG 0.5 MG 7-14 0.5 MG 00:00: 00 LORazepam LORazepam 2020-0 No QD LORazepam 0.5 MG 0.5 MG 7-14 0.5 MG 00:00: LORazepam LORazepam 0 No QD LORazepam 0.5 MG 0.5 MG 7-14 0.5 MG 00: LORazepam LORazepam 0 No QD LORazepam 0.5 MG 0.5 MG 7-14 0.5 MG :: LORazepam LORazepam 0 No QD LORazepam 0.5 MG 0.5 MG 7-14 0.5 MG :: LORazepam LORazepam 0 No QD LORazepam 0.5 MG 0.5 MG 7-14 0.5 MG :: LORazepam LORazepam 0 No QD LORazepam 0.5 MG 0.5 MG 7-14 0.5 MG : LORazepam LORazepam 0 No QD LORazepam 0.5 MG 0.5 MG 7-14 0.5 MG 00:: LORazepam LORazepam 0 No QD LORazepam 0.5 MG 0.5 MG 7-14 0.5 MG : LORazepam LORazepam 0 No QD LORazepam 0.5 MG 0.5 MG 7-14 0.5 MG :: LORazepam LORazepam 0 No QD LORazepam 0.5 MG 0.5 MG 7-14 0.5 MG :: LORazepam LORazepam 0 No QD LORazepam 0.5 MG 0.5 MG 7-14 0.5 MG 00:: LORazepam LORazepam 0 No QD LORazepam 0.5 MG 0.5 MG 7-14 0.5 MG :: LORazepam LORazepam 0 No QD LORazepam 0.5 MG 0.5 MG 7-14 0.5 MG 00:: LORazepam LORazepam 0 No QD LORazepam 0.5 MG 0.5 MG 7-14 0.5 MG :: LORazepam LORazepam 0 No QD LORazepam 0.5 MG 0.5 MG 7-14 0.5 MG 00:: LORazepam LORazepam 0 No QD LORazepam 0.5 MG 0.5 MG 7-14 0.5 MG :: LORazepam LORazepam 0 No QD LORazepam 0.5 MG 0.5 MG 7-14 0.5 MG 00:: LORazepam LORazepam 0 No QD LORazepam 0.5 MG 0.5 MG 7-14 0.5 MG 00:: LORazepam LORazepam 0 No QD LORazepam 0.5 MG 0.5 MG 7-14 0.5 MG 00:: LORazepam LORazepam 2020-0 No QD LORazepam 0.5 MG 0.5 MG 7-14 0.5 MG :: LORazepam LORazepam 2020-0 No QD LORazepam 0.5 MG 0.5 MG 7-14 0.5 MG 00:: LORazepam LORazepam 0 No QD LORazepam 0.5 MG 0.5 MG 7-14 0.5 MG :: LORazepam LORazepam 0 No QD LORazepam 0.5 MG 0.5 MG 7-14 0.5 MG 00:: LORazepam LORazepam 2020-0 No QD LORazepam 0.5 MG 0.5 MG 7-14 0.5 MG : LORazepam LORazepam 0 No QD LORazepam 0.5 MG 0.5 MG 7-14 0.5 MG 00:: LORazepam LORazepam 0 No QD LORazepam 0.5 MG 0.5 MG 7-14 0.5 MG :: LORazepam LORazepam 2020-0 No QD LORazepam 0.5 MG 0.5 MG 7-14 0.5 MG 00:: LORazepam LORazepam 2020-0 No QD LORazepam 0.5 MG 0.5 MG 7-14 0.5 MG :: LORazepam LORazepam 2020-0 No QD LORazepam 0.5 MG 0.5 MG 7-14 0.5 MG 00:: LORazepam LORazepam 2020-0 No QD LORazepam 0.5 MG 0.5 MG 7-14 0.5 MG 00:: LORazepam LORazepam 2020-0 No QD LORazepam 0.5 MG 0.5 MG 7-14 0.5 MG 00:00: LORazepam LORazepam 2020-0 No QD LORazepam 0.5 MG 0.5 MG 7-14 0.5 MG :: 00 LORazepam LORazepam 2020-0 No QD LORazepam 0.5 MG 0.5 MG 7-14 0.5 MG 00:00: 00 LORazepam LORazepam 2020-0 No QD LORazepam 0.5 MG 0.5 MG 7-14 0.5 MG 00:00: 00 LORazepam LORazepam 2020-0 No QD LORazepam 0.5 MG 0.5 MG 7-14 0.5 MG 00:00: 00 LORazepam LORazepam 2020-0 No QD LORazepam 0.5 MG 0.5 MG 7-14 0.5 MG 00:00: 00 LORazepam LORazepam 2020-0 No QD LORazepam 0.5 MG 0.5 MG 7-14 0.5 MG 00:00: 00 LORazepam LORazepam 2020-0 No QD LORazepam 0.5 MG 0.5 MG 7-14 0.5 MG 00:00: 00 LORazepam LORazepam 2020-0 No QD LORazepam 0.5 MG 0.5 MG 7-14 0.5 MG 00:00: 00 LORazepam LORazepam 2020-0 No QD LORazepam 0.5 MG 0.5 MG 7-14 0.5 MG 00:00: 00 Vitamin B12 Vitamin B12 0 No 1000ug Common (Cyanocobal (Cyanocobal 7-08 S pirit rivera) rivera) 00:00: - [facility] Vitamin B12 Vitamin B12 2020-0 No 1000ug Common (Cyanocobal (Cyanocobal 7-08 S pirit rivera) rivera) 00:00: - [facility] Vitamin B12 Vitamin B12 2020-0 No 1000ug Common (Cyanocobal (Cyanocobal 7-08 S pirit rivera) rivera) 00:00: - [facility] [address] [facility] Vitamin B12 Vitamin B12 2020-0 No 1000ug Common (Cyanocobal (Cyanocobal 7-08 S pirit rivera) rivera) 00:00: - [facility] Vitamin B12 Vitamin B12 2020-0 No 1000ug Common (Cyanocobal (Cyanocobal 7-08 S pirit rivera) rivera) 00:00: - [facility] Vitamin B12 Vitamin B12 2020-0 No 1000ug Common (Cyanocobal (Cyanocobal 7-08 S pirit rivera) rivera) 00:00: - [facility] Vitamin B12 Vitamin B12 2021-0 No 1000ug Common (Cyanocobal (Cyanocobal 7-08 S pirit rivera) rivera) 00:00: - [facility] [address] [facility] Vitamin B12 Vitamin B12 2021-0 No 1000ug Common (Cyanocobal (Cyanocobal 7-08 S pirit rivera) rivera) 00:00: - [facility] [address] [facility] Vitamin B12 Vitamin B12 2021-0 No 1000ug Common (Cyanocobal (Cyanocobal 7-08 S pirit rivera) rivera) 00:00: - [facility] [address] [facility] Vitamin B12 Vitamin B12 2020-0 No 1000ug Common (Cyanocobal (Cyanocobal 7-08 S pirit rivera) rivera) 00:00: - [facility] [address] [facility] Vitamin B12 Vitamin B12 2020-0 No 1000ug Common (Cyanocobal (Cyanocobal 7-08 S pirit rivera) rivera) 00:00: - [facility] [address] [facility] Vitamin B12 Vitamin B12 2020-0 No 1000ug Common (Cyanocobal (Cyanocobal 7-08 S pirit rivera) rivera) 00:00: - [facility] [address] [facility] Vitamin B12 Vitamin B12 1-0 No 1000ug Common (Cyanocobal (Cyanocobal 7-08 S pirit rivera) rivera) 00:00: - [facility] [address] [facility] Vitamin B12 Vitamin B12 1-0 No 1000ug Common (Cyanocobal (Cyanocobal 7-08 S pirit rivera) rivera) 00:00: - [facility] [address] [facility] Vitamin B12 Vitamin B12 2021-0 No 1000ug Common (Cyanocobal (Cyanocobal 7-08 S pirit rivera) rivera) 00:00: - [facility] [address] [facility] Vitamin B12 Vitamin B12 2021-0 No 1000ug Common (Cyanocobal (Cyanocobal 7-08 S pirit rivera) rivera) 00:00: - [facility] [address] [facility] Vitamin B12 Vitamin B12 2021-0 No 1000ug Common (Cyanocobal (Cyanocobal 7-08 S pirit rivera) rivera) 00:00: - [facility] [address] [facility] Vitamin B12 Vitamin B12 2021-0 No 1000ug Common (Cyanocobal (Cyanocobal 7-08 S pirit rivera) rivera) 00:00: - [facility] [address] [facility] Vitamin B12 Vitamin B12 2021-0 No 1000ug Common (Cyanocobal (Cyanocobal 7-08 S pirit rivera) rivera) 00:00: - [facility] [address] [facility] Vitamin B12 Vitamin B12 1-0 No 1000ug Common (Cyanocobal (Cyanocobal 7-08 S pirit rivera) rivera) 00:00: - [facility] [address] [facility] Vitamin B12 Vitamin B12 2021-0 No 1000ug Common (Cyanocobal (Cyanocobal 7-08 S pirit rivera) rivera) 00:00: - [facility] [address] [facility] Vitamin B12 Vitamin B12 2020-0 No 1000ug Common (Cyanocobal (Cyanocobal 7-08 S pirit rivera) rivera) 00:00: - [facility] [address] [facility] Vitamin B12 Vitamin B12 1-0 No 1000ug Common (Cyanocobal (Cyanocobal 7-08 S pirit rivera) rivera) 00:00: - [facility] [address] [facility] Vitamin B12 Vitamin B12 1-0 No 1000ug Common (Cyanocobal (Cyanocobal 7-08 S pirit rivera) rivera) 00:00: - [facility] [address] [facility] Vitamin B12 Vitamin B12 1-0 No 1000ug Common (Cyanocobal (Cyanocobal 7-08 S pirit rivera) rivera) 00:00: - [facility] [address] [facility] Vitamin B12 Vitamin B12 2021-0 No 1000ug Common (Cyanocobal (Cyanocobal 7-08 S pirit rivera) rivera) 00:00: - [facility] [address] [facility] Vitamin B12 Vitamin B12 1-0 No 1000ug Common (Cyanocobal (Cyanocobal 7-08 S pirit rivera) rivera) 00:00: - [facility] [address] [facility] Vitamin B12 Vitamin B12 2021-0 No 1000ug Common (Cyanocobal (Cyanocobal 7-08 S pirit rivera) rivera) 00:00: - [facility] [address] [facility] Vitamin B12 Vitamin B12 2021-0 No 1000ug Common (Cyanocobal (Cyanocobal 7-08 S pirit rivera) rivera) 00:00: - [facility] [address] [facility] Vitamin B12 Vitamin B12 2021-0 No 1000ug Common (Cyanocobal (Cyanocobal 7-08 S pirit rivera) rivera) 00:00: - [facility] [address] [facility] Vitamin B12 Vitamin B12 1-0 No 1000ug Common (Cyanocobal (Cyanocobal 7-08 S pirit rivera) rivera) 00:00: - [facility] [address] [facility] Vitamin B12 Vitamin B12 1-0 No 1000ug Common (Cyanocobal (Cyanocobal 7-08 S pirit rivera) rivera) 00:00: - [facility] [address] [facility] Vitamin B12 Vitamin B12 2020-0 No 1000ug Common (Cyanocobal (Cyanocobal 7-08 S pirit rivera) rivera) 00:00: - [facility] [address] [facility] Vitamin B12 Vitamin B12 2020-0 No 1000ug Common (Cyanocobal (Cyanocobal 7-08 S pirit rivera) rivera) 00:00: - [facility] [address] [facility] Vitamin B12 Vitamin B12 2020-0 No 1000ug Common (Cyanocobal (Cyanocobal 7-08 S pirit rivera) rivera) 00:00: - [facility] [address] [facility] Vitamin B12 Vitamin B12 2020-0 No 1000ug Common (Cyanocobal (Cyanocobal 7-08 S pirit rivera) rivera) 00:00: - [facility] [address] [facility] Vitamin B12 Vitamin B12 2020-0 No 1000ug Common (Cyanocobal (Cyanocobal 7-08 S pirit rivera) rivera) 00:00: - [facility] [address] [facility] Vitamin B12 Vitamin B12 1-0 No 1000ug Common (Cyanocobal (Cyanocobal 6-18 S pirit rivera) rivera) 00:00: - [facility] [address] [facility] Vitamin B12 Vitamin B12 1-0 No 1000ug Common (Cyanocobal (Cyanocobal 6-18 S pirit rivera) rivera) 00:00: - [facility] [address] [facility] Vitamin B12 Vitamin B12 2021-0 No 1000ug Common (Cyanocobal (Cyanocobal 6-18 S pirit rivera) rivera) 00:00: - [facility] [address] [facility] Vitamin B12 Vitamin B12 2021-0 No 1000ug Common (Cyanocobal (Cyanocobal 6-18 S pirit rivera) rivera) 00:00: - [facility] [address] [facility] Vitamin B12 Vitamin B12 2021-0 No 1000ug Common (Cyanocobal (Cyanocobal 6-18 S pirit rivera) rivera) 00:00: - [facility] [address] [facility] Vitamin B12 Vitamin B12 2020-0 No 1000ug Common (Cyanocobal (Cyanocobal 6-18 S pirit rivera) rivera) 00:00: - [facility] [address] [facility] Vitamin B12 Vitamin B12 2020-0 No 1000ug Common (Cyanocobal (Cyanocobal 6-18 S pirit rivera) rivera) 00:00: - [facility] [address] [facility] Vitamin B12 Vitamin B12 2020-0 No 1000ug Common (Cyanocobal (Cyanocobal 6-18 S pirit rivera) rivera) 00:00: - [facility] [address] [facility] Vitamin B12 Vitamin B12 2020-0 No 1000ug Common (Cyanocobal (Cyanocobal 6-18 S pirit rivera) rivera) 00:00: - [facility] [address] [facility] Vitamin B12 Vitamin B12 2020-0 No 1000ug Common (Cyanocobal (Cyanocobal 6-18 S pirit rivera) rivera) 00:00: - [facility] [address] [facility] Vitamin B12 Vitamin B12 2020-0 No 1000ug Common (Cyanocobal (Cyanocobal 6-18 S pirit rivera) rivera) 00:00: - [facility] [address] [facility] Vitamin B12 Vitamin B12 2020-0 No 1000ug Common (Cyanocobal (Cyanocobal 6-18 S pirit rivera) rivera) 00:00: - [facility] [address] [facility] Vitamin B12 Vitamin B12 1-0 No 1000ug Common (Cyanocobal (Cyanocobal 6-18 S pirit rivera) rivera) 00:00: - [facility] [address] [facility] Vitamin B12 Vitamin B12 2020-0 No 1000ug Common (Cyanocobal (Cyanocobal 6-18 S pirit rivera) rivera) 00:00: - [facility] [address] [facility] Vitamin B12 Vitamin B12 1-0 No 1000ug Common (Cyanocobal (Cyanocobal 6-18 S pirit rivera) rivera) 00:00: - [facility] [address] [facility] Vitamin B12 Vitamin B12 1-0 No 1000ug Common (Cyanocobal (Cyanocobal 6-18 S pirit rivera) rivera) 00:00: - [facility] [address] [facility] Vitamin B12 Vitamin B12 2020-0 No 1000ug Common (Cyanocobal (Cyanocobal 6-18 S pirit rivera) rivera) 00:00: - [facility] [address] [facility] Vitamin B12 Vitamin B12 2020-0 No 1000ug Common (Cyanocobal (Cyanocobal 6-18 S pirit rivera) rivera) 00:00: - [facility] [address] [facility] Vitamin B12 Vitamin B12 2020-0 No 1000ug Common (Cyanocobal (Cyanocobal 6-18 S pirit rivera) rivera) 00:00: - [facility] [address] [facility] Vitamin B12 Vitamin B12 2020-0 No 1000ug Common (Cyanocobal (Cyanocobal 6-18 S pirit rivera) rivera) 00:00: - [facility] [address] [facility] Vitamin B12 Vitamin B12 2020-0 No 1000ug Common (Cyanocobal (Cyanocobal 6-18 S pirit rivera) rivera) 00:00: - [facility] [address] [facility] Vitamin B12 Vitamin B12 2020-0 No 1000ug Common (Cyanocobal (Cyanocobal 6-18 S pirit rivera) rivera) 00:00: - [facility] [address] [facility] Vitamin B12 Vitamin B12 2020-0 No 1000ug Common (Cyanocobal (Cyanocobal 6-18 S pirit rivera) rivera) 00:00: - [facility] [address] [facility] Vitamin B12 Vitamin B12 2020-0 No 1000ug Common (Cyanocobal (Cyanocobal 6-18 S pirit rivera) rivera) 00:00: - [facility] [address] [facility] Vitamin B12 Vitamin B12 2020-0 No 1000ug Common (Cyanocobal (Cyanocobal 6-18 S pirit rivera) rivera) 00:00: - [facility] [address] [facility] Vitamin B12 Vitamin B12 2020-0 No 1000ug Common (Cyanocobal (Cyanocobal 6-18 S pirit rivera) rivera) 00:00: - [facility] [address] [facility] Vitamin B12 Vitamin B12 1-0 No 1000ug Common (Cyanocobal (Cyanocobal 6-18 S pirit rivera) rivera) 00:00: - [facility] [address] [facility] Vitamin B12 Vitamin B12 2021-0 No 1000ug Common (Cyanocobal (Cyanocobal 6-18 S pirit rivera) rivera) 00:00: - [facility] [address] [facility] Vitamin B12 Vitamin B12 2020-0 No 1000ug Common (Cyanocobal (Cyanocobal 6-18 S pirit rivera) rivera) 00:00: - [facility] [address] [facility] Vitamin B12 Vitamin B12 2020-0 No 1000ug Common (Cyanocobal (Cyanocobal 6-18 S pirit rivera) rivera) 00:00: - [facility] [address] [facility] Vitamin B12 Vitamin B12 2020-0 No 1000ug Common (Cyanocobal (Cyanocobal 6-18 S pirit rivera) rivera) 00:00: - [facility] [address] [facility] Vitamin B12 Vitamin B12 2020-0 No 1000ug Common (Cyanocobal (Cyanocobal 6-18 S pirit rivera) rivera) 00:00: - [facility] [address] [facility] Vitamin B12 Vitamin B12 2020-0 No 1000ug Common (Cyanocobal (Cyanocobal 6-18 S pirit rivera) rivera) 00:00: - [facility] [address] [facility] Vitamin B12 Vitamin B12 2020-0 No 1000ug Common (Cyanocobal (Cyanocobal 6-18 S pirit rivera) rivera) 00:00: - [facility] [address] [facility] Vitamin B12 Vitamin B12 2020-0 No 1000ug Common (Cyanocobal (Cyanocobal 6-18 S pirit rivera) rivera) 00:00: - [facility] [address] [facility] Vitamin B12 Vitamin B12 2020-0 No 1000ug Common (Cyanocobal (Cyanocobal 6-18 S pirit rivera) rivera) 00:00: - [facility] [address] [facility] Vitamin B12 Vitamin B12 2020-0 No 1000ug Common (Cyanocobal (Cyanocobal 6-18 S pirit rivera) rivera) 00:00: - [facility] [address] [facility] Vitamin B12 Vitamin B12 2020-0 No 1000ug Common (Cyanocobal (Cyanocobal 5-20 S pirit rivera) rivera) 00:00: - [facility] [address] [facility] Vitamin B12 Vitamin B12 2020-0 No 1000ug Common (Cyanocobal (Cyanocobal 5-20 S pirit rivera) rivera) 00:00: - [facility] [address] [facility] Vitamin B12 Vitamin B12 2020-0 No 1000ug Common (Cyanocobal (Cyanocobal 5-20 S pirit rivera) rivera) 00:00: - [facility] [address] [facility] Vitamin B12 Vitamin B12 2020-0 No 1000ug Common (Cyanocobal (Cyanocobal 5-20 S pirit rivera) rivera) 00:00: - [facility] [address] [facility] Vitamin B12 Vitamin B12 1-0 No 1000ug Common (Cyanocobal (Cyanocobal 5-20 S pirit rivera) rivera) 00:00: - [facility] [address] [facility] Vitamin B12 Vitamin B12 1-0 No 1000ug Common (Cyanocobal (Cyanocobal 5-20 S pirit rivera) rivera) 00:00: - [facility] [address] [facility] Vitamin B12 Vitamin B12 2020-0 No 1000ug Common (Cyanocobal (Cyanocobal 5-20 S pirit rivera) rivera) 00:00: - [facility] [address] [facility] Vitamin B12 Vitamin B12 2020-0 No 1000ug Common (Cyanocobal (Cyanocobal 5-20 S pirit rivera) rviera) 00:00: - [facility] [address] [facility] Vitamin B12 Vitamin B12 2020-0 No 1000ug Common (Cyanocobal (Cyanocobal 5-20 S pirit rivera) rivera) 00:00: - [facility] [address] [facility] Vitamin B12 Vitamin B12 2020-0 No 1000ug Common (Cyanocobal (Cyanocobal 5-20 S pirit rivera) rivera) 00:00: - [facility] [address] [facility] Vitamin B12 Vitamin B12 2020-0 No 1000ug Common (Cyanocobal (Cyanocobal 5-20 S pirit rivera) rivera) 00:00: - [facility] [address] [facility] Vitamin B12 Vitamin B12 1-0 No 1000ug Common (Cyanocobal (Cyanocobal 5-20 S pirit rivera) rivera) 00:00: - [facility] [address] [facility] Vitamin B12 Vitamin B12 1-0 No 1000ug Common (Cyanocobal (Cyanocobal 5-20 S pirit rivera) rivera) 00:00: - [facility] [address] [facility] Vitamin B12 Vitamin B12 1-0 No 1000ug Common (Cyanocobal (Cyanocobal 5-20 S pirit rivera) rivera) 00:00: - [facility] [address] [facility] Vitamin B12 Vitamin B12 2021-0 No 1000ug Common (Cyanocobal (Cyanocobal 5-20 S pirit rivera) rivera) 00:00: - [facility] [address] [facility] Vitamin B12 Vitamin B12 2021-0 No 1000ug Common (Cyanocobal (Cyanocobal 5-20 S pirit rivera) rivera) 00:00: - [facility] [address] [facility] Vitamin B12 Vitamin B12 2020-0 No 1000ug Common (Cyanocobal (Cyanocobal 5-20 S pirit rivera) rivera) 00:00: - [facility] [address] [facility] Vitamin B12 Vitamin B12 1-0 No 1000ug Common (Cyanocobal (Cyanocobal 5-20 S pirit rivera) rivera) 00:00: - [facility] [address] [facility] Vitamin B12 Vitamin B12 2020-0 No 1000ug Common (Cyanocobal (Cyanocobal 5-20 S pirit rivera) rivera) 00:00: - [facility] [address] [facility] Vitamin B12 Vitamin B12 2020-0 No 1000ug Common (Cyanocobal (Cyanocobal 5-20 S pirit rivera) rivera) 00:00: - [facility] [address] [facility] Vitamin B12 Vitamin B12 2020-0 No 1000ug Common (Cyanocobal (Cyanocobal 5-20 S pirit rivera) rivera) 00:00: - [facility] [address] [facility] Vitamin B12 Vitamin B12 2020-0 No 1000ug Common (Cyanocobal (Cyanocobal 5-20 S pirit rivera) rivera) 00:00: - [facility] [address] [facility] Vitamin B12 Vitamin B12 2020-0 No 1000ug Common (Cyanocobal (Cyanocobal 5-20 S pirit rivera) rivera) 00:00: - [facility] [address] [facility] Vitamin B12 Vitamin B12 1-0 No 1000ug Common (Cyanocobal (Cyanocobal 5-20 S pirit rivera) rivera) 00:00: - [facility] [address] [facility] Vitamin B12 Vitamin B12 1-0 No 1000ug Common (Cyanocobal (Cyanocobal 5-20 S pirit rivera) rivera) 00:00: - [facility] [address] [facility] Vitamin B12 Vitamin B12 1-0 No 1000ug Common (Cyanocobal (Cyanocobal 5-20 S pirit rivera) rivera) 00:00: - [facility] [address] [facility] Vitamin B12 Vitamin B12 2021-0 No 1000ug Common (Cyanocobal (Cyanocobal 5-20 S pirit rivera) rivera) 00:00: - [facility] [address] [facility] Vitamin B12 Vitamin B12 2021-0 No 1000ug Common (Cyanocobal (Cyanocobal 5-20 S pirit rivera) rivera) 00:00: - [facility] [address] [facility] Vitamin B12 Vitamin B12 1-0 No 1000ug Common (Cyanocobal (Cyanocobal 5-20 S pirit rivera) rivera) 00:00: - [facility] [address] [facility] Vitamin B12 Vitamin B12 1-0 No 1000ug Common (Cyanocobal (Cyanocobal 5-20 S pirit rivera) rivera) 00:00: - [facility] [address] [facility] Vitamin B12 Vitamin B12 1-0 No 1000ug Common (Cyanocobal (Cyanocobal 5-20 S pirit rivera) rivera) 00:00: - [facility] [address] [facility] Vitamin B12 Vitamin B12 2020-0 No 1000ug Common (Cyanocobal (Cyanocobal 5-20 S pirit rivera) rivera) 00:00: - [facility] [address] [facility] Vitamin B12 Vitamin B12 1-0 No 1000ug Common (Cyanocobal (Cyanocobal 5-20 S pirit rivera) rivera) 00:00: - [facility] [address] [facility] Vitamin B12 Vitamin B12 1-0 No 1000ug Common (Cyanocobal (Cyanocobal 5-20 S pirit rivera) rivera) 00:00: - [facility] [address] [facility] Vitamin B12 Vitamin B12 1-0 No 1000ug Common (Cyanocobal (Cyanocobal 5-20 S pirit rivera) rivera) 00:00: - [facility] [address] [facility] Vitamin B12 Vitamin B12 1-0 No 1000ug Common (Cyanocobal (Cyanocobal 5-20 S pirit rivera) rivera) 00:00: - [facility] [address] [facility] Vitamin B12 Vitamin B12 2021-0 No 1000ug Common (Cyanocobal (Cyanocobal 5-20 S pirit rivera) rivera) 00:00: - [facility] [address] [facility] Vitamin B12 Vitamin B12 2021-0 No 1000ug Common (Cyanocobal (Cyanocobal 5-06 S pirit rivera) rivera) 00:00: - [facility] [address] [facility] Vitamin B12 Vitamin B12 2021-0 No 1000ug Common (Cyanocobal (Cyanocobal 5-06 S pirit rivera) rivera) 00:00: - [facility] [address] [facility] Vitamin B12 Vitamin B12 2021-0 No 1000ug Common (Cyanocobal (Cyanocobal 5-06 S pirit rivera) rivera) 00:00: - [facility] [address] [facility] Vitamin B12 Vitamin B12 2021-0 No 1000ug Common (Cyanocobal (Cyanocobal 5-06 S pirit rivera) rivera) 00:00: - [facility] [address] [facility] Vitamin B12 Vitamin B12 1-0 No 1000ug Common (Cyanocobal (Cyanocobal 5-06 S pirit rivera) rivera) 00:00: - [facility] [address] [facility] Vitamin B12 Vitamin B12 2020-0 No 1000ug Common (Cyanocobal (Cyanocobal 5-06 S pirit rivera) rivera) 00:00: - [facility] [address] [facility] Vitamin B12 Vitamin B12 2020-0 No 1000ug Common (Cyanocobal (Cyanocobal 5-06 S pirit rivera) rivera) 00:00: - [facility] [address] [facility] Vitamin B12 Vitamin B12 2020-0 No 1000ug Common (Cyanocobal (Cyanocobal 5-06 S pirit rivera) rivera) 00:00: - [facility] [address] [facility] Vitamin B12 Vitamin B12 1-0 No 1000ug Common (Cyanocobal (Cyanocobal 5-06 S pirit rivera) rivera) 00:00: - [facility] [address] [facility] Vitamin B12 Vitamin B12 1-0 No 1000ug Common (Cyanocobal (Cyanocobal 5-06 S pirit rivera) rivera) 00:00: - [facility] [address] [facility] Vitamin B12 Vitamin B12 1-0 No 1000ug Common (Cyanocobal (Cyanocobal 5-06 S pirit rivera) irvera) 00:00: - [facility] [address] [facility] Vitamin B12 Vitamin B12 2021-0 No 1000ug Common (Cyanocobal (Cyanocobal 5-06 S pirit rivera) rivera) 00:00: - [facility] [address] [facility] Vitamin B12 Vitamin B12 2021-0 No 1000ug Common (Cyanocobal (Cyanocobal 5-06 S pirit rivera) rivera) 00:00: - [facility] [address] [facility] Vitamin B12 Vitamin B12 2021-0 No 1000ug Common (Cyanocobal (Cyanocobal 5-06 S pirit rivera) rivera) 00:00: - [facility] [address] [facility] Vitamin B12 Vitamin B12 2021-0 No 1000ug Common (Cyanocobal (Cyanocobal 5-06 S pirit rivera) rivera) 00:00: - [facility] [address] [facility] Vitamin B12 Vitamin B12 2021-0 No 1000ug Common (Cyanocobal (Cyanocobal 5-06 S pirit rivera) rivera) 00:00: - [facility] [address] [facility] Vitamin B12 Vitamin B12 2020-0 No 1000ug Common (Cyanocobal (Cyanocobal 5-06 S pirit rivera) rivera) 00:00: - [facility] [address] [facility] Vitamin B12 Vitamin B12 2020-0 No 1000ug Common (Cyanocobal (Cyanocobal 5-06 S pirit rivera) rivera) 00:00: - [facility] [address] [facility] Vitamin B12 Vitamin B12 2020-0 No 1000ug Common (Cyanocobal (Cyanocobal 5-06 S pirit rivera) rivera) 00:00: - [facility] [address] [facility] Vitamin B12 Vitamin B12 2020-0 No 1000ug Common (Cyanocobal (Cyanocobal 5-06 S pirit rivera) rivera) 00:00: - [facility] [address] [facility] Vitamin B12 Vitamin B12 2020-0 No 1000ug Common (Cyanocobal (Cyanocobal 5-06 S pirit rivera) rivera) 00:00: - [facility] [address] [facility] Vitamin B12 Vitamin B12 1-0 No 1000ug Common (Cyanocobal (Cyanocobal 5-06 S pirit rivera) rivera) 00:00: - [facility] [address] [facility] Vitamin B12 Vitamin B12 2020-0 No 1000ug Common (Cyanocobal (Cyanocobal 5-06 S pirit rivera) rivera) 00:00: - [facility] [address] [facility] Vitamin B12 Vitamin B12 2021-0 No 1000ug Common (Cyanocobal (Cyanocobal 5-06 S pirit rivera) rivera) 00:00: - [facility] [address] [facility] Vitamin B12 Vitamin B12 2021-0 No 1000ug Common (Cyanocobal (Cyanocobal 5-06 S pirit rivera) rivera) 00:00: - [facility] [address] [facility] Vitamin B12 Vitamin B12 2021-0 No 1000ug Common (Cyanocobal (Cyanocobal 5-06 S pirit rivera) rivera) 00:00: - [facility] [address] [facility] Vitamin B12 Vitamin B12 1-0 No 1000ug Common (Cyanocobal (Cyanocobal 5-06 S pirit rivera) rivera) 00:00: - [facility] [address] [facility] Vitamin B12 Vitamin B12 2020-0 No 1000ug Common (Cyanocobal (Cyanocobal 5-06 S pirit rivera) rivera) 00:00: - [facility] [address] [facility] Vitamin B12 Vitamin B12 2020-0 No 1000ug Common (Cyanocobal (Cyanocobal 5-06 S pirit rivera) rivera) 00:00: - [facility] [address] [facility] Vitamin B12 Vitamin B12 2020-0 No 1000ug Common (Cyanocobal (Cyanocobal 5-06 S pirit rivera) rivera) 00:00: - [facility] [address] [facility] Vitamin B12 Vitamin B12 2020-0 No 1000ug Common (Cyanocobal (Cyanocobal 5-06 S pirit rivera) rivera) 00:00: - [facility] [address] [facility] Vitamin B12 Vitamin B12 2020-0 No 1000ug Common (Cyanocobal (Cyanocobal 5-06 S pirit rivera) rivera) 00:00: - [facility] [address] [facility] Vitamin B12 Vitamin B12 2020-0 No 1000ug Common (Cyanocobal (Cyanocobal 5-06 S pirit rivera) rivera) 00:00: - [facility] [address] [facility] Vitamin B12 Vitamin B12 1-0 No 1000ug Common (Cyanocobal (Cyanocobal 5-06 S pirit rivera) rivera) 00:00: - [facility] [address] [facility] Vitamin B12 Vitamin B12 2020-0 No 1000ug Common (Cyanocobal (Cyanocobal 5-06 S pirit rivera) rivera) 00:00: - [facility] [address] [facility] Vitamin B12 Vitamin B12 1-0 No 1000ug Common (Cyanocobal (Cyanocobal 5-06 S pirit rivera) rivera) 00:00: - [facility] [address] [facility] Vitamin B12 Vitamin B12 2021-0 No 1000ug Common (Cyanocobal (Cyanocobal 5-06 S pirit rivera) rivera) 00:00: - [facility] [address] [facility] Vitamin B12 Vitamin B12 2021-0 No 1000ug Common (Cyanocobal (Cyanocobal 4-27 S pirit rivera) rivera) 00:00: - [facility] [address] [facility] Vitamin B12 Vitamin B12 1-0 No 1000ug Common (Cyanocobal (Cyanocobal 4-27 S pirit rivera) rivrea) 00:00: - [facility] [address] [facility] Vitamin B12 Vitamin B12 1-0 No 1000ug Common (Cyanocobal (Cyanocobal 4-27 S pirit rivera) rivera) 00:00: - [facility] [address] [facility] Vitamin B12 Vitamin B12 2020-0 No 1000ug Common (Cyanocobal (Cyanocobal 4-27 S pirit rivera) rivera) 00:00: - [facility] [address] [facility] Vitamin B12 Vitamin B12 2020-0 No 1000ug Common (Cyanocobal (Cyanocobal 4-27 S pirit rivera) rivera) 00:00: - [facility] [address] [facility] Vitamin B12 Vitamin B12 2020-0 No 1000ug Common (Cyanocobal (Cyanocobal 4-27 S pirit rivera) rivera) 00:00: - [facility] [address] [facility] Vitamin B12 Vitamin B12 1-0 No 1000ug Common (Cyanocobal (Cyanocobal 4-27 S pirit rivera) rivera) 00:00: - [facility] [address] [facility] Vitamin B12 Vitamin B12 2020-0 No 1000ug Common (Cyanocobal (Cyanocobal 4-27 S pirit rivera) rivera) 00:00: - [facility] [address] [facility] Vitamin B12 Vitamin B12 1-0 No 1000ug Common (Cyanocobal (Cyanocobal 4-27 S pirit rivera) rivera) 00:00: - [facility] [address] [facility] Vitamin B12 Vitamin B12 1-0 No 1000ug Common (Cyanocobal (Cyanocobal 4-27 S pirit rivera) rivera) 00:00: - [facility] [address] [facility] Vitamin B12 Vitamin B12 2021-0 No 1000ug Common (Cyanocobal (Cyanocobal 4-27 S pirit rivera) rivera) 00:00: - [facility] [address] [facility] Vitamin B12 Vitamin B12 2021-0 No 1000ug Common (Cyanocobal (Cyanocobal 4-27 S pirit rivera) rivera) 00:00: - [facility] [address] [facility] Vitamin B12 Vitamin B12 2021-0 No 1000ug Common (Cyanocobal (Cyanocobal 4-27 S pirit rivera) rivera) 00:00: - [facility] [address] [facility] Vitamin B12 Vitamin B12 1-0 No 1000ug Common (Cyanocobal (Cyanocobal 4-27 S pirit rivera) rivera) 00:00: - [facility] [address] [facility] Vitamin B12 Vitamin B12 1-0 No 1000ug Common (Cyanocobal (Cyanocobal 4-27 S pirit rivera) rivera) 00:00: - [facility] [address] [facility] Vitamin B12 Vitamin B12 1-0 No 1000ug Common (Cyanocobal (Cyanocobal 4-27 S pirit rivera) rivera) 00:00: - [facility] [address] [facility] Vitamin B12 Vitamin B12 1-0 No 1000ug Common (Cyanocobal (Cyanocobal 4-27 S pirit rivera) rivera) 00:00: - [facility] [address] [facility] Vitamin B12 Vitamin B12 2020-0 No 1000ug Common (Cyanocobal (Cyanocobal 4-27 S pirit rivera) rivera) 00:00: - [facility] [address] [facility] Vitamin B12 Vitamin B12 2020-0 No 1000ug Common (Cyanocobal (Cyanocobal 4-27 S pirit rivera) rivera) 00:00: - [facility] [address] [facility] Vitamin B12 Vitamin B12 2020-0 No 1000ug Common (Cyanocobal (Cyanocobal 4-27 S pirit rivera) rivera) 00:00: - [facility] [address] [facility] Vitamin B12 Vitamin B12 1-0 No 1000ug Common (Cyanocobal (Cyanocobal 4-27 S pirit rivera) rivera) 00:00: - [facility] [address] [facility] Vitamin B12 Vitamin B12 1-0 No 1000ug Common (Cyanocobal (Cyanocobal 4-27 S pirit rivera) rivera) 00:00: - [facility] [address] [facility] Vitamin B12 Vitamin B12 2021-0 No 1000ug Common (Cyanocobal (Cyanocobal 4-27 S pirit rivera) rivera) 00:00: - [facility] [address] [facility] Vitamin B12 Vitamin B12 2021-0 No 1000ug Common (Cyanocobal (Cyanocobal 4-27 S pirit rivera) rivera) 00:00: - [facility] [address] [facility] Vitamin B12 Vitamin B12 2021-0 No 1000ug Common (Cyanocobal (Cyanocobal 4-27 S pirit rivera) rivera) 00:00: - [facility] [address] [facility] Vitamin B12 Vitamin B12 1-0 No 1000ug Common (Cyanocobal (Cyanocobal 4-27 S pirit rivera) rivera) 00:00: - [facility] [address] [facility] Vitamin B12 Vitamin B12 2020-0 No 1000ug Common (Cyanocobal (Cyanocobal 4-27 S pirit rivera) rivera) 00:00: - [facility] [address] [facility] Vitamin B12 Vitamin B12 2020-0 No 1000ug Common (Cyanocobal (Cyanocobal 4-27 S pirit rivera) rivera) 00:00: - [facility] [address] [facility] Vitamin B12 Vitamin B12 2020-0 No 1000ug Common (Cyanocobal (Cyanocobal 4-27 S pirit rivera) rivera) 00:00: - [facility] [address] [facility] Vitamin B12 Vitamin B12 2020-0 No 1000ug Common (Cyanocobal (Cyanocobal 4-27 S pirit rivera) rivera) 00:00: - [facility] [address] [facility] Vitamin B12 Vitamin B12 2020-0 No 1000ug Common (Cyanocobal (Cyanocobal 4-27 S pirit rivera) rivera) 00:00: - [facility] [address] [facility] Vitamin B12 Vitamin B12 2020-0 No 1000ug Common (Cyanocobal (Cyanocobal 4-27 S pirit rivera) rivera) 00:00: - [facility] [address] [facility] Vitamin B12 Vitamin B12 1-0 No 1000ug Common (Cyanocobal (Cyanocobal 4-27 S pirit rivera) rivera) 00:00: - [facility] [address] [facility] Vitamin B12 Vitamin B12 1-0 No 1000ug Common (Cyanocobal (Cyanocobal 4-27 S pirit rivera) rivera) 00:00: - [facility] [address] [facility] Vitamin B12 Vitamin B12 1-0 No 1000ug Common (Cyanocobal (Cyanocobal 4-27 S pirit rivera) rivera) 00:00: - [facility] [address] [facility] Vitamin B12 Vitamin B12 2021-0 No 1000ug Common (Cyanocobal (Cyanocobal 4-27 S pirit rivera) rivera) 00:00: - [facility] [address] [facility] Vitamin B12 Vitamin B12 2020-0 No 1000ug Common (Cyanocobal (Cyanocobal 4-27 S pirit rivera) rivera) 00:00: - [facility] [address] [facility] Vitamin B12 Vitamin B12 2020-0 No 1000ug Common (Cyanocobal (Cyanocobal 4-08 S pirit rivera) rivera) 00:00: - [facility] [address] [facility] Vitamin B12 Vitamin B12 2020-0 No 1000ug Common (Cyanocobal (Cyanocobal 4-08 S pirit rivera) rivera) 00:00: - [facility] [address] [facility] Vitamin B12 Vitamin B12 2020-0 No 1000ug Common (Cyanocobal (Cyanocobal 4-08 S pirit rivera) rivera) 00:00: - [facility] [address] [facility] Vitamin B12 Vitamin B12 2020-0 No 1000ug Common (Cyanocobal (Cyanocobal 4-08 S pirit rivera) rivera) 00:00: - [facility] [address] [facility] Vitamin B12 Vitamin B12 2020-0 No 1000ug Common (Cyanocobal (Cyanocobal 4-08 S pirit rivera) rivera) 00:00: - [facility] [address] [facility] Vitamin B12 Vitamin B12 2020-0 No 1000ug Common (Cyanocobal (Cyanocobal 4-08 S pirit rivera) rivera) 00:00: - [facility] [address] [facility] Vitamin B12 Vitamin B12 2020-0 No 1000ug Common (Cyanocobal (Cyanocobal 4-08 S pirit rivera) rivera) 00:00: - [facility] [address] [facility] Vitamin B12 Vitamin B12 2020-0 No 1000ug Common (Cyanocobal (Cyanocobal 4-08 S pirit rivera) rivera) 00:00: - [facility] [address] [facility] Vitamin B12 Vitamin B12 2020-0 No 1000ug Common (Cyanocobal (Cyanocobal 4-08 S pirit rivera) rivera) 00:00: - [facility] [address] [facility] Vitamin B12 Vitamin B12 2020-0 No 1000ug Common (Cyanocobal (Cyanocobal 4-08 S pirit rivera) rivera) 00:00: - [facility] [address] [facility] Vitamin B12 Vitamin B12 2021-0 No 1000ug Common (Cyanocobal (Cyanocobal 4-08 S pirit rivera) rivera) 00:00: - [facility] [address] [facility] Vitamin B12 Vitamin B12 2020-0 No 1000ug Common (Cyanocobal (Cyanocobal 4-08 S pirit rivera) rivera) 00:00: - [facility] [address] [facility] Vitamin B12 Vitamin B12 2021-0 No 1000ug Common (Cyanocobal (Cyanocobal 4-08 S pirit rivera) rivera) 00:00: - [facility] [address] [facility] Vitamin B12 Vitamin B12 2021-0 No 1000ug Common (Cyanocobal (Cyanocobal 4-08 S pirit rivera) rivera) 00:00: - [facility] [address] [facility] Vitamin B12 Vitamin B12 2021-0 No 1000ug Common (Cyanocobal (Cyanocobal 4-08 S pirit rivera) rivera) 00:00: - [facility] [address] [facility] Vitamin B12 Vitamin B12 2020-0 No 1000ug Common (Cyanocobal (Cyanocobal 4-08 S pirit rivera) rivera) 00:00: - [facility] [address] [facility] Vitamin B12 Vitamin B12 2021-0 No 1000ug Common (Cyanocobal (Cyanocobal 4-08 S pirit rivera) rivera) 00:00: - [facility] [address] [facility] Vitamin B12 Vitamin B12 1-0 No 1000ug Common (Cyanocobal (Cyanocobal 4-08 S pirit rivera) rivera) 00:00: - [facility] [address] [facility] Vitamin B12 Vitamin B12 2020-0 No 1000ug Common (Cyanocobal (Cyanocobal 4-08 S pirit rivera) rivera) 00:00: - [facility] [address] [facility] Vitamin B12 Vitamin B12 2021-0 No 1000ug Common (Cyanocobal (Cyanocobal 4-08 S pirit rivera) rivera) 00:00: - [facility] [address] [facility] Vitamin B12 Vitamin B12 2021-0 No 1000ug Common (Cyanocobal (Cyanocobal 4-08 S pirit rivera) rivera) 00:00: - [facility] [address] [facility] Vitamin B12 Vitamin B12 2021-0 No 1000ug Common (Cyanocobal (Cyanocobal 4-08 S pirit rivera) rivera) 00:00: - [facility] [address] [facility] Vitamin B12 Vitamin B12 2021-0 No 1000ug Common (Cyanocobal (Cyanocobal 4-08 S pirit rivera) rivera) 00:00: - [facility] [address] [facility] Vitamin B12 Vitamin B12 2021-0 No 1000ug Common (Cyanocobal (Cyanocobal 4-08 S pirit rivera) rivera) 00:00: - [facility] [address] [facility] Vitamin B12 Vitamin B12 2021-0 No 1000ug Common (Cyanocobal (Cyanocobal 4-08 S pirit rivera) rivera) 00:00: - [facility] [address] [facility] Vitamin B12 Vitamin B12 2021-0 No 1000ug Common (Cyanocobal (Cyanocobal 4-08 S pirit rivera) rivera) 00:00: - [facility] [address] [facility] Vitamin B12 Vitamin B12 2021-0 No 1000ug Common (Cyanocobal (Cyanocobal 4-08 S pirit rivera) rivera) 00:00: - [facility] [address] [facility] Vitamin B12 Vitamin B12 2020-0 No 1000ug Common (Cyanocobal (Cyanocobal 4-08 S pirit rivera) rivera) 00:00: - [facility] [address] [facility] Vitamin B12 Vitamin B12 2021-0 No 1000ug Common (Cyanocobal (Cyanocobal 4-08 S pirit rivera) rivera) 00:00: - [facility] [address] [facility] Vitamin B12 Vitamin B12 1-0 No 1000ug Common (Cyanocobal (Cyanocobal 4-08 S pirit rivera) rivera) 00:00: - [facility] [address] [facility] Vitamin B12 Vitamin B12 1-0 No 1000ug Common (Cyanocobal (Cyanocobal 4-08 S pirit rivera) rivera) 00:00: - [facility] [address] [facility] Vitamin B12 Vitamin B12 2021-0 No 1000ug Common (Cyanocobal (Cyanocobal 4-08 S pirit rivera) rivera) 00:00: - [facility] [address] [facility] Vitamin B12 Vitamin B12 2021-0 No 1000ug Common (Cyanocobal (Cyanocobal 4-08 S pirit rivera) rivera) 00:00: - [facility] [address] [facility] Vitamin B12 Vitamin B12 2021-0 No 1000ug Common (Cyanocobal (Cyanocobal 4-08 S pirit rivera) rivera) 00:00: - [facility] [address] [facility] Vitamin B12 Vitamin B12 2021-0 No 1000ug Common (Cyanocobal (Cyanocobal 4-08 S pirit rivera) rivera) 00:00: - [facility] [address] [facility] Vitamin B12 Vitamin B12 2021-0 No 1000ug Common (Cyanocobal (Cyanocobal 4-08 S pirit rivera) rivera) 00:00: - [facility] [address] [facility] Vitamin B12 Vitamin B12 2021-0 No 1000ug Common (Cyanocobal (Cyanocobal 4-08 S pirit rivera) rivera) 00:00: - [facility] [address] [facility] Vitamin B12 Vitamin B12 2021-0 No 1000ug Common (Cyanocobal (Cyanocobal 3-25 S pirit rivera) rivera) 00:00: - [facility] [address] [facility] Vitamin B12 Vitamin B12 2021-0 No 1000ug Common (Cyanocobal (Cyanocobal 3-25 S pirit rivera) rivera) 00:00: - [facility] [address] [facility] Vitamin B12 Vitamin B12 1-0 No 1000ug Common (Cyanocobal (Cyanocobal 3-25 S pirit rivera) rivera) 00:00: - [facility] [address] [facility] Vitamin B12 Vitamin B12 1-0 No 1000ug Common (Cyanocobal (Cyanocobal 3-25 S pirit rivera) rivera) 00:00: - [facility] [address] [facility] Vitamin B12 Vitamin B12 1-0 No 1000ug Common (Cyanocobal (Cyanocobal 3-25 S pirit rivera) rivera) 00:00: - [facility] [address] [facility] Vitamin B12 Vitamin B12 1-0 No 1000ug Common (Cyanocobal (Cyanocobal 3-25 S pirit rivera) rivera) 00:00: - [facility] [address] [facility] Vitamin B12 Vitamin B12 1-0 No 1000ug Common (Cyanocobal (Cyanocobal 3-25 S pirit rivera) rivera) 00:00: - [facility] [address] [facility] Vitamin B12 Vitamin B12 2021-0 No 1000ug Common (Cyanocobal (Cyanocobal 3-25 S pirit rivera) rivera) 00:00: - [facility] [address] [facility] Vitamin B12 Vitamin B12 2021-0 No 1000ug Common (Cyanocobal (Cyanocobal 3-25 S pirit rivera) rivera) 00:00: - [facility] [address] [facility] Vitamin B12 Vitamin B12 2021-0 No 1000ug Common (Cyanocobal (Cyanocobal 3-25 S pirit rivera) rivera) 00:00: - [facility] [address] [facility] Vitamin B12 Vitamin B12 2021-0 No 1000ug Common (Cyanocobal (Cyanocobal 3-25 S pirit rivera) rivera) 00:00: - [facility] [address] [facility] Vitamin B12 Vitamin B12 2021-0 No 1000ug Common (Cyanocobal (Cyanocobal 3-25 S pirit rivera) rivera) 00:00: - [facility] [address] [facility] Vitamin B12 Vitamin B12 1-0 No 1000ug Common (Cyanocobal (Cyanocobal 3-25 S pirit rivera) rivera) 00:00: - [facility] [address] [facility] Vitamin B12 Vitamin B12 1-0 No 1000ug Common (Cyanocobal (Cyanocobal 3-25 S pirit rivera) rivera) 00:00: - [facility] [address] [facility] Vitamin B12 Vitamin B12 2020-0 No 1000ug Common (Cyanocobal (Cyanocobal 3-25 S pirit rivera) rivera) 00:00: - [facility] [address] [facility] Vitamin B12 Vitamin B12 1-0 No 1000ug Common (Cyanocobal (Cyanocobal 3-25 S pirit rivera) rivera) 00:00: - [facility] [address] [facility] Vitamin B12 Vitamin B12 1-0 No 1000ug Common (Cyanocobal (Cyanocobal 3-25 S pirit rivera) rivera) 00:00: - [facility] [address] [facility] Vitamin B12 Vitamin B12 1-0 No 1000ug Common (Cyanocobal (Cyanocobal 3-25 S pirit rivera) rivera) 00:00: - [facility] [address] [facility] Vitamin B12 Vitamin B12 1-0 No 1000ug Common (Cyanocobal (Cyanocobal 3-25 S pirit rivera) rivera) 00:00: - [facility] [address] [facility] Vitamin B12 Vitamin B12 2021-0 No 1000ug Common (Cyanocobal (Cyanocobal 3-25 S pirit rivera) rivera) 00:00: - [facility] [address] [facility] Vitamin B12 Vitamin B12 2021-0 No 1000ug Common (Cyanocobal (Cyanocobal 3-25 S pirit rivera) rivera) 00:00: - [facility] [address] [facility] Vitamin B12 Vitamin B12 2021-0 No 1000ug Common (Cyanocobal (Cyanocobal 3-25 S pirit rivera) rivera) 00:00: - [facility] [address] [facility] Vitamin B12 Vitamin B12 1-0 No 1000ug Common (Cyanocobal (Cyanocobal 3-25 S pirit rivera) rivera) 00:00: - [facility] [address] [facility] Vitamin B12 Vitamin B12 2020-0 No 1000ug Common (Cyanocobal (Cyanocobal 3-25 S pirit rivera) rivera) 00:00: - [facility] [address] [facility] Vitamin B12 Vitamin B12 1-0 No 1000ug Common (Cyanocobal (Cyanocobal 3-25 S pirit rivera) rivera) 00:00: - [facility] [address] [facility] Vitamin B12 Vitamin B12 2020-0 No 1000ug Common (Cyanocobal (Cyanocobal 3-25 S pirit rivera) rivera) 00:00: - [facility] [address] [facility] Vitamin B12 Vitamin B12 2020-0 No 1000ug Common (Cyanocobal (Cyanocobal 3-25 S pirit rivera) rivera) 00:00: - [facility] [address] [facility] Vitamin B12 Vitamin B12 2020-0 No 1000ug Common (Cyanocobal (Cyanocobal 3-25 S pirit rivera) rivera) 00:00: - [facility] [address] [facility] Vitamin B12 Vitamin B12 2020-0 No 1000ug Common (Cyanocobal (Cyanocobal 3-25 S pirit rivera) rivera) 00:00: - [facility] [address] [facility] Vitamin B12 Vitamin B12 2020-0 No 1000ug Common (Cyanocobal (Cyanocobal 3-25 S pirit rivera) rivera) 00:00: - [facility] [address] [facility] Vitamin B12 Vitamin B12 2020-0 No 1000ug Common (Cyanocobal (Cyanocobal 3-25 S pirit rivera) rivera) 00:00: - [facility] [address] [facility] Vitamin B12 Vitamin B12 1-0 No 1000ug Common (Cyanocobal (Cyanocobal 3-25 S pirit rivera) rivera) 00:00: - [facility] [address] [facility] Vitamin B12 Vitamin B12 2021-0 No 1000ug Common (Cyanocobal (Cyanocobal 3-25 S pirit rivera) rivera) 00:00: - [facility] [address] [facility] Vitamin B12 Vitamin B12 2021-0 No 1000ug Common (Cyanocobal (Cyanocobal 3-25 S pirit rivera) rivera) 00:00: - [facility] [address] [facility] Vitamin B12 Vitamin B12 2020-0 No 1000ug Common (Cyanocobal (Cyanocobal 3-25 S pirit rivera) rivera) 00:00: - [facility] [address] [facility] Vitamin B12 Vitamin B12 2020-0 No 1000ug Common (Cyanocobal (Cyanocobal 3-25 S pirit rivera) rivera) 00:00: - [facility] [address] [facility] Vitamin B12 Vitamin B12 2020-0 No 1000ug Common (Cyanocobal (Cyanocobal 3-25 S pirit rivera) rivera) 00:00: - [facility] [address] [facility] Vitamin B12 Vitamin B12 2020-0 No 1000ug Common (Cyanocobal (Cyanocobal 2-10 S pirit rivera) rivera) 00:00: - [facility] [address] [facility] Vitamin B12 Vitamin B12 2020-0 No 1000ug Common (Cyanocobal (Cyanocobal 2-10 S pirit rivera) rivera) 00:00: - [facility] [address] [facility] Vitamin B12 Vitamin B12 2020-0 No 1000ug Common (Cyanocobal (Cyanocobal 2-10 S pirit rivera) rivera) 00:00: - [facility] [address] [facility] Vitamin B12 Vitamin B12 2020-0 No 1000ug Common (Cyanocobal (Cyanocobal 2-10 S pirit rivera) rivera) 00:00: - [facility] [address] [facility] Vitamin B12 Vitamin B12 2020-0 No 1000ug Common (Cyanocobal (Cyanocobal 2-10 S pirit rivera) rivera) 00:00: - [facility] [address] [facility] Vitamin B12 Vitamin B12 2020-0 No 1000ug Common (Cyanocobal (Cyanocobal 2-10 S pirit rivera) rivera) 00:00: - [facility] [address] [facility] Vitamin B12 Vitamin B12 2020-0 No 1000ug Common (Cyanocobal (Cyanocobal 2-10 S pirit rivera) rivera) 00:00: - [facility] [address] [facility] Vitamin B12 Vitamin B12 202-0 No 1000ug Common (Cyanocobal (Cyanocobal 2-10 S pirit rivera) rivera) 00:00: - [facility] [address] [facility] Vitamin B12 Vitamin B12 2021-0 No 1000ug Common (Cyanocobal (Cyanocobal 2-10 S pirit rivera) rivera) 00:00: - [facility] [address] [facility] Vitamin B12 Vitamin B12 2020-0 No 1000ug Common (Cyanocobal (Cyanocobal 2-10 S pirit rivera) rivera) 00:00: - [facility] [address] [facility] Vitamin B12 Vitamin B12 2020-0 No 1000ug Common (Cyanocobal (Cyanocobal 2-10 S pirit rivera) rivera) 00:00: - [facility] [address] [facility] Vitamin B12 Vitamin B12 2020-0 No 1000ug Common (Cyanocobal (Cyanocobal 2-10 S pirit rivera) rivera) 00:00: - [facility] [address] [facility] Vitamin B12 Vitamin B12 2020-0 No 1000ug Common (Cyanocobal (Cyanocobal 2-10 S pirit rivera) rivera) 00:00: - [facility] [address] [facility] Vitamin B12 Vitamin B12 2020-0 No 1000ug Common (Cyanocobal (Cyanocobal 2-10 S pirit rivera) rivera) 00:00: - [facility] [address] [facility] Vitamin B12 Vitamin B12 2020-0 No 1000ug Common (Cyanocobal (Cyanocobal 2-10 S pirit rivera) rivera) 00:00: - [facility] [address] [facility] Vitamin B12 Vitamin B12 2020-0 No 1000ug Common (Cyanocobal (Cyanocobal 2-10 S pirit rivera) rivera) 00:00: - [facility] [address] [facility] Vitamin B12 Vitamin B12 2020-0 No 1000ug Common (Cyanocobal (Cyanocobal 2-10 S pirit rivera) rivera) 00:00: - [facility] [address] [facility] Vitamin B12 Vitamin B12 2020-0 No 1000ug Common (Cyanocobal (Cyanocobal 2-10 S pirit rivera) rivera) 00:00: - [facility] [address] [facility] Vitamin B12 Vitamin B12 1-0 No 1000ug Common (Cyanocobal (Cyanocobal 2-10 S pirit rivera) rivera) 00:00: - [facility] [address] [facility] Vitamin B12 Vitamin B12 2020-0 No 1000ug Common (Cyanocobal (Cyanocobal 2-10 S pirit rivera) rivera) 00:00: - [facility] [address] [facility] Vitamin B12 Vitamin B12 1-0 No 1000ug Common (Cyanocobal (Cyanocobal 2-10 S pirit rivera) rivera) 00:00: - [facility] [address] [facility] Vitamin B12 Vitamin B12 2020-0 No 1000ug Common (Cyanocobal (Cyanocobal 2-10 S pirit rivera) rivera) 00:00: - [facility] [address] [facility] Vitamin B12 Vitamin B12 2020-0 No 1000ug Common (Cyanocobal (Cyanocobal 2-10 S pirit rivera) rivera) 00:00: - [facility] [address] [facility] Vitamin B12 Vitamin B12 2020-0 No 1000ug Common (Cyanocobal (Cyanocobal 2-10 S pirit rivera) rivera) 00:00: - [facility] [address] [facility] Vitamin B12 Vitamin B12 2020-0 No 1000ug Common (Cyanocobal (Cyanocobal 2-10 S pirit rivera) rivera) 00:00: - [facility] [address] [facility] Vitamin B12 Vitamin B12 2020-0 No 1000ug Common (Cyanocobal (Cyanocobal 2-10 S pirit rivera) rivera) 00:00: - [facility] [address] [facility] Vitamin B12 Vitamin B12 2020-0 No 1000ug Common (Cyanocobal (Cyanocobal 2-10 S pirit rivera) rivera) 00:00: - [facility] [address] [facility] Vitamin B12 Vitamin B12 2020-0 No 1000ug Common (Cyanocobal (Cyanocobal 2-10 S pirit rivera) rivera) 00:00: - [facility] [address] [facility] Vitamin B12 Vitamin B12 2020-0 No 1000ug Common (Cyanocobal (Cyanocobal 2-10 S pirit rivera) rivera) 00:00: - [facility] [address] [facility] Vitamin B12 Vitamin B12 2020-0 No 1000ug Common (Cyanocobal (Cyanocobal 2-10 S pirit rivera) rivera) 00:00: - [facility] [address] [facility] Vitamin B12 Vitamin B12 1-0 No 1000ug Common (Cyanocobal (Cyanocobal 2-10 S pirit rivera) rivera) 00:00: - [facility] [address] [facility] Vitamin B12 Vitamin B12 1-0 No 1000ug Common (Cyanocobal (Cyanocobal 2-10 S pirit rivera) rivera) 00:00: - [facility] [address] [facility] Vitamin B12 Vitamin B12 2020-0 No 1000ug Common (Cyanocobal (Cyanocobal 2-10 S pirit rivera) rivera) 00:00: - [facility] [address] [facility] Vitamin B12 Vitamin B12 2020-0 No 1000ug Common (Cyanocobal (Cyanocobal 2-10 S pirit rivera) rivera) 00:00: - [facility] [address] [facility] Vitamin B12 Vitamin B12 2020-0 No 1000ug Common (Cyanocobal (Cyanocobal 2-10 S pirit rivera) rivera) 00:00: - [facility] [address] [facility] Vitamin B12 Vitamin B12 2020-0 No 1000ug Common (Cyanocobal (Cyanocobal 2-10 S pirit rivera) rivera) 00:00: - [facility] [address] [facility] Vitamin B12 Vitamin B12 2020-0 No 1000ug Common (Cyanocobal (Cyanocobal 2-10 S pirit rivera) rivera) 00:00: - [facility] [address] [facility] Vitamin B12 Vitamin B12 2020-0 No 1000ug Common (Cyanocobal (Cyanocobal 2-03 S pirit rivera) rivera) 00:00: - [facility] [address] [facility] Vitamin B12 Vitamin B12 2020-0 No 1000ug Common (Cyanocobal (Cyanocobal 2-03 S pirit rivera) rivera) 00:00: - [facility] [address] [facility] Vitamin B12 Vitamin B12 2020-0 No 1000ug Common (Cyanocobal (Cyanocobal 2-03 S pirit rivera) rivera) 00:00: - [facility] [address] [facility] Vitamin B12 Vitamin B12 1-0 No 1000ug Common (Cyanocobal (Cyanocobal 2-03 S pirit rivera) rivera) 00:00: - [facility] [address] [facility] Vitamin B12 Vitamin B12 2020-0 No 1000ug Common (Cyanocobal (Cyanocobal 2-03 S pirit rivera) rivera) 00:00: - [facility] [address] [facility] Vitamin B12 Vitamin B12 1-0 No 1000ug Common (Cyanocobal (Cyanocobal 2-03 S pirit rivera) rivera) 00:00: - [facility] [address] [facility] Vitamin B12 Vitamin B12 1-0 No 1000ug Common (Cyanocobal (Cyanocobal 2-03 S pirit rivera) rivera) 00:00: - [facility] [address] [facility] Vitamin B12 Vitamin B12 2020-0 No 1000ug Common (Cyanocobal (Cyanocobal 2-03 S pirit rivera) rivera) 00:00: - [facility] [address] [facility] Vitamin B12 Vitamin B12 2020-0 No 1000ug Common (Cyanocobal (Cyanocobal 2-03 S pirit rivera) rivera) 00:00: - [facility] [address] [facility] Vitamin B12 Vitamin B12 2020-0 No 1000ug Common (Cyanocobal (Cyanocobal 2-03 S pirit rivera) rivera) 00:00: - [facility] [address] [facility] Vitamin B12 Vitamin B12 2020-0 No 1000ug Common (Cyanocobal (Cyanocobal 2-03 S pirit rivera) rivera) 00:00: - [facility] [address] [facility] Vitamin B12 Vitamin B12 2020-0 No 1000ug Common (Cyanocobal (Cyanocobal 2-03 S pirit rivera) rivera) 00:00: - [facility] [address] [facility] Vitamin B12 Vitamin B12 2020-0 No 1000ug Common (Cyanocobal (Cyanocobal 2-03 S pirit rivera) rivera) 00:00: - [facility] [address] [facility] Vitamin B12 Vitamin B12 2020-0 No 1000ug Common (Cyanocobal (Cyanocobal 2-03 S pirit rivera) rivera) 00:00: - [facility] [address] [facility] [place] Vitamin B12 Vitamin B12 2020-0 No 1000ug Common (Cyanocobal (Cyanocobal 2-03 S pirit rivera) rivera) 00:00: - [facility] [address] [facility] [place] Vitamin B12 Vitamin B12 2020-0 No 1000ug Common (Cyanocobal (Cyanocobal 2-03 S pirit rivera) rivera) 00:00: - [facility] [address] [facility] [place] Vitamin B12 Vitamin B12 2020-0 No 1000ug Common (Cyanocobal (Cyanocobal 2-03 S pirit rivera) rivera) 00:00: - [facility] [address] [facility] [place] Vitamin B12 Vitamin B12 1-0 No 1000ug Common (Cyanocobal (Cyanocobal 2-03 S pirit rivera) rivera) 00:00: - [facility] [address] [facility] [place] Vitamin B12 Vitamin B12 2021-0 No 1000ug Common (Cyanocobal (Cyanocobal 2-03 S pirit rivera) rivera) 00:00: - [facility] [address] [facility] [place] Vitamin B12 Vitamin B12 2020-0 No 1000ug Common (Cyanocobal (Cyanocobal 2-03 S pirit rivera) rivera) 00:00: - [facility] [address] [facility] [place] Vitamin B12 Vitamin B12 2020-0 No 1000ug Common (Cyanocobal (Cyanocobal 2-03 S pirit rivera) rivera) 00:00: - [facility] [address] [facility] [place] Vitamin B12 Vitamin B12 2020-0 No 1000ug Common (Cyanocobal (Cyanocobal 2-03 S pirit rivera) rivera) 00:00: - [facility] [address] [facility] [place] Vitamin B12 Vitamin B12 2020-0 No 1000ug Common (Cyanocobal (Cyanocobal 2-03 S pirit rivera) rivera) 00:00: - [facility] [address] [facility] [place] Vitamin B12 Vitamin B12 2020-0 No 1000ug Common (Cyanocobal (Cyanocobal 2-03 S pirit rivera) rivera) 00:00: - [facility] [address] [facility] [place] Vitamin B12 Vitamin B12 2020-0 No 1000ug Common (Cyanocobal (Cyanocobal 2-03 S pirit rivera) rivera) 00:00: - [facility] [address] [facility] [place] Vitamin B12 Vitamin B12 2020-0 No 1000ug Common (Cyanocobal (Cyanocobal 2-03 S pirit rivera) rivera) 00:00: - [facility] [address] [facility] [place] Vitamin B12 Vitamin B12 2020-0 No 1000ug Common (Cyanocobal (Cyanocobal 2-03 S pirit rivera) rivera) 00:00: - [facility] [address] [facility] [place] Vitamin B12 Vitamin B12 2020-0 No 1000ug Common (Cyanocobal (Cyanocobal 2-03 S pirit rivera) rivera) 00:00: - [facility] [address] [facility] [place] Vitamin B12 Vitamin B12 2020-0 No 1000ug Common (Cyanocobal (Cyanocobal 2-03 S pirit rivera) rivera) 00:00: - [facility] [address] [facility] [place] Vitamin B12 Vitamin B12 2020-0 No 1000ug Common (Cyanocobal (Cyanocobal 2-03 S pirit rivera) rivera) 00:00: - [facility] [address] [facility] [place] Vitamin B12 Vitamin B12 2021-0 No 1000ug Common (Cyanocobal (Cyanocobal 2-03 S pirit rivera) rivera) 00:00: - [facility] [address] [facility] [place] Vitamin B12 Vitamin B12 2020-0 No 1000ug Common (Cyanocobal (Cyanocobal 2-03 S pirit rivera) rivera) 00:00: - [facility] [address] [facility] [place] Vitamin B12 Vitamin B12 1-0 No 1000ug Common (Cyanocobal (Cyanocobal 2-03 S pirit rivera) rivera) 00:00: - [facility] [address] [facility] [place] Vitamin B12 Vitamin B12 2021-0 No 1000ug Common (Cyanocobal (Cyanocobal 2-03 S pirit rivera) rivera) 00:00: - [facility] [address] [facility] [place] Vitamin B12 Vitamin B12 2020-0 No 1000ug Common (Cyanocobal (Cyanocobal 2-03 S pirit rivera) rivera) 00:00: - [facility] [address] [facility] [place] Vitamin B12 Vitamin B12 2020-0 No 1000ug Common (Cyanocobal (Cyanocobal 2-03 S pirit rivera) rivera) 00:00: - [facility] [address] [facility] [place] Vitamin B12 Vitamin B12 2020-0 No 1000ug Common (Cyanocobal (Cyanocobal 2-03 S pirit rivera) rivera) 00:00: - [facility] [address] [facility] [place] Vitamin B12 Vitamin B12 2020-0 No 1000ug Common (Cyanocobal (Cyanocobal 1-14 S pirit rivera) rivera) 00:00: - [facility] [address] [facility] [place] Vitamin B12 Vitamin B12 2020-0 No 1000ug Common (Cyanocobal (Cyanocobal 1-14 S pirit rivera) rivera) 00:00: - [facility] [address] [facility] [place] Vitamin B12 Vitamin B12 2020-0 No 1000ug Common (Cyanocobal (Cyanocobal 1-14 S pirit rivera) rivera) 00:00: - [facility] [address] [facility] [place] Vitamin B12 Vitamin B12 2021-0 No 1000ug Common (Cyanocobal (Cyanocobal 1-14 S pirit rivera) rivera) 00:00: - [facility] [address] [facility] [place] Vitamin B12 Vitamin B12 2021-0 No 1000ug Common (Cyanocobal (Cyanocobal 1-14 S pirit rivera) rivera) 00:00: - [facility] [address] [facility] [place] Vitamin B12 Vitamin B12 2021-0 No 1000ug Common (Cyanocobal (Cyanocobal 1-14 S pirit rivera) rivera) 00:00: - [facility] [address] [facility] [place] Vitamin B12 Vitamin B12 2021-0 No 1000ug Common (Cyanocobal (Cyanocobal 1-14 S pirit rivera) rivera) 00:00: - [facility] [address] [facility] [place] Vitamin B12 Vitamin B12 2020-0 No 1000ug Common (Cyanocobal (Cyanocobal 1-14 S pirit rivera) rivera) 00:00: - [facility] [address] [facility] [place] Vitamin B12 Vitamin B12 1-0 No 1000ug Common (Cyanocobal (Cyanocobal 1-14 S pirit rivera) rivera) 00:00: - [facility] [address] [facility] [place] Vitamin B12 Vitamin B12 2020-0 No 1000ug Common (Cyanocobal (Cyanocobal 1-14 S pirit rivera) rivera) 00:00: - [facility] [address] [facility] [place] Vitamin B12 Vitamin B12 2020-0 No 1000ug Common (Cyanocobal (Cyanocobal 1-14 S pirit rivera) rivera) 00:00: - [facility] [address] [facility] [place] Vitamin B12 Vitamin B12 2020-0 No 1000ug Common (Cyanocobal (Cyanocobal 1-14 S pirit rivera) rivera) 00:00: - [facility] [address] [facility] [place] Vitamin B12 Vitamin B12 2020-0 No 1000ug Common (Cyanocobal (Cyanocobal 1-14 S pirit rivera) rivera) 00:00: - [facility] [address] [facility] [place] Vitamin B12 Vitamin B12 2020-0 No 1000ug Common (Cyanocobal (Cyanocobal 1-14 S pirit rivera) rivera) 00:00: - [facility] [address] [facility] [place] Vitamin B12 Vitamin B12 1-0 No 1000ug Common (Cyanocobal (Cyanocobal 1-14 S pirit rivera) rivera) 00:00: - [facility] [address] [facility] [place] Vitamin B12 Vitamin B12 2021-0 No 1000ug Common (Cyanocobal (Cyanocobal 1-14 S pirit rivera) rivera) 00:00: - [facility] [address] [facility] [place] Vitamin B12 Vitamin B12 2021-0 No 1000ug Common (Cyanocobal (Cyanocobal 1-14 S pirit rivera) rivera) 00:00: - [facility] [address] [facility] [place] Vitamin B12 Vitamin B12 2021-0 No 1000ug Common (Cyanocobal (Cyanocobal 1-14 S pirit rivera) rivera) 00:00: - [facility] [address] [facility] [place] Vitamin B12 Vitamin B12 2021-0 No 1000ug Common (Cyanocobal (Cyanocobal 1-14 S pirit rivera) rivera) 00:00: - [facility] [address] [facility] [place] Vitamin B12 Vitamin B12 1-0 No 1000ug Common (Cyanocobal (Cyanocobal 1-14 S pirit rivera) rivera) 00:00: - [facility] [address] [facility] [place] Vitamin B12 Vitamin B12 2021-0 No 1000ug Common (Cyanocobal (Cyanocobal 1-14 S pirit rivera) rivera) 00:00: - [facility] [address] [facility] [place] Vitamin B12 Vitamin B12 2020-0 No 1000ug Common (Cyanocobal (Cyanocobal 1-14 S pirit rivera) rivera) 00:00: - [facility] [address] [facility] [place] Vitamin B12 Vitamin B12 2020-0 No 1000ug Common (Cyanocobal (Cyanocobal 1-14 S pirit rivera) rivera) 00:00: - [facility] [address] [facility] [place] Vitamin B12 Vitamin B12 2020-0 No 1000ug Common (Cyanocobal (Cyanocobal 1-14 S pirit rivera) rivera) 00:00: - [facility] [address] [facility] [place] Vitamin B12 Vitamin B12 2020-0 No 1000ug Common (Cyanocobal (Cyanocobal 1-14 S pirit rivera) rivera) 00:00: - [facility] [address] [facility] [place] Vitamin B12 Vitamin B12 2020-0 No 1000ug Common (Cyanocobal (Cyanocobal 1-14 S pirit rivera) rivera) 00:00: - [facility] [address] [facility] [place] Vitamin B12 Vitamin B12 1-0 No 1000ug Common (Cyanocobal (Cyanocobal 1-14 S pirit rivera) rivera) 00:00: - [facility] [address] [facility] [place] Vitamin B12 Vitamin B12 2021-0 No 1000ug Common (Cyanocobal (Cyanocobal 1-14 S pirit rivera) rivera) 00:00: - [facility] [address] [facility] [place] Vitamin B12 Vitamin B12 2021-0 No 1000ug Common (Cyanocobal (Cyanocobal 1-14 S pirit rivera) rivera) 00:00: - [facility] [address] [facility] [place] Vitamin B12 Vitamin B12 2021-0 No 1000ug Common (Cyanocobal (Cyanocobal 1-14 S pirit rivera) rivera) 00:00: - [facility] [address] [facility] [place] Vitamin B12 Vitamin B12 2021-0 No 1000ug Common (Cyanocobal (Cyanocobal 1-14 S pirit rivera) rivera) 00:00: - [facility] [address] [facility] [place] Vitamin B12 Vitamin B12 2020-0 No 1000ug Common (Cyanocobal (Cyanocobal 1-14 S pirit rivera) rivera) 00:00: - [facility] [address] [facility] [place] Vitamin B12 Vitamin B12 2020-0 No 1000ug Common (Cyanocobal (Cyanocobal 1-14 S pirit rivera) rivera) 00:00: - [facility] [address] [facility] [place] Vitamin B12 Vitamin B12 2020-0 No 1000ug Common (Cyanocobal (Cyanocobal 1-14 S pirit rivera) rivera) 00:00: - [facility] [address] [facility] [place] Vitamin B12 Vitamin B12 2020-0 No 1000ug Common (Cyanocobal (Cyanocobal 1-14 S pirit rivera) rivera) 00:00: - [facility] [address] [facility] [place] Vitamin B12 Vitamin B12 2020-0 No 1000ug Common (Cyanocobal (Cyanocobal 1-14 S pirit rivera) rivera) 00:00: - [facility] [address] [facility] [place] Vitamin B12 Vitamin B12 2020-0 No 1000ug Common (Cyanocobal (Cyanocobal 1-14 S pirit rivera) rivera) 00:00: - [facility] [address] [facility] [place] Vitamin B12 Vitamin B12 2020-1 No 1000ug Common (Cyanocobal (Cyanocobal 2-30 S pirit rivera) rivera) 00:00: - [facility] [address] [facility] [place] Vitamin B12 Vitamin B12 2020-1 No 1000ug Common (Cyanocobal (Cyanocobal 2-30 S pirit rivera) rivera) 00:00: - [facility] [address] [facility] [place] Vitamin B12 Vitamin B12 2020-1 No 1000ug Common (Cyanocobal (Cyanocobal 2-30 S pirit rivera) rivera) 00:00: - [facility] [address] [facility] [place] Vitamin B12 Vitamin B12 2020-1 No 1000ug Common (Cyanocobal (Cyanocobal 2-30 S pirit rivera) rivera) 00:00: - [facility] [address] [facility] [place] Vitamin B12 Vitamin B12 2020-1 No 1000ug Common (Cyanocobal (Cyanocobal 2-30 S pirit rivera) rivera) 00:00: - [facility] [address] [facility] [place] Vitamin B12 Vitamin B12 2020-1 No 1000ug Common (Cyanocobal (Cyanocobal 2-30 S pirit rviera) rivera) 00:00: - [facility] [address] [facility] [place] Vitamin B12 Vitamin B12 2020-1 No 1000ug Common (Cyanocobal (Cyanocobal 2-30 S pirit rivera) rivera) 00:00: - [facility] [address] [facility] [place] Vitamin B12 Vitamin B12 2020-1 No 1000ug Common (Cyanocobal (Cyanocobal 2-30 S pirit rivera) rivera) 00:00: - [facility] [address] [facility] [place] Vitamin B12 Vitamin B12 2020-1 No 1000ug Common (Cyanocobal (Cyanocobal 2-30 S pirit rivera) rivera) 00:00: - [facility] [address] [facility] [place] Vitamin B12 Vitamin B12 2020-1 No 1000ug Common (Cyanocobal (Cyanocobal 2-30 S pirit rivera) rivera) 00:00: - [facility] [address] [facility] [place] Vitamin B12 Vitamin B12 2020-1 No 1000ug Common (Cyanocobal (Cyanocobal 2-30 S pirit rivera) rivera) 00:00: - [facility] [address] [facility] [place] Vitamin B12 Vitamin B12 2020-1 No 1000ug Common (Cyanocobal (Cyanocobal 2-30 S pirit rivera) rivera) 00:00: - [facility] [address] [facility] [place] Vitamin B12 Vitamin B12 2020-1 No 1000ug Common (Cyanocobal (Cyanocobal 2-30 S pirit rivera) rivera) 00:00: - [facility] [address] [facility] [place] Vitamin B12 Vitamin B12 2020-1 No 1000ug Common (Cyanocobal (Cyanocobal 2-30 S pirit rivera) rivera) 00:00: - [facility] [address] [facility] [place] Vitamin B12 Vitamin B12 2020-1 No 1000ug Common (Cyanocobal (Cyanocobal 2-30 S pirit rivera) rivera) 00:00: - [facility] [address] [facility] [place] Vitamin B12 Vitamin B12 2020-1 No 1000ug Common (Cyanocobal (Cyanocobal 2-30 S pirit rivera) rivera) 00:00: - [facility] [address] [facility] [place] Vitamin B12 Vitamin B12 2020-1 No 1000ug Common (Cyanocobal (Cyanocobal 2-30 S pirit rivera) rivera) 00:00: - [facility] [address] [facility] [place] Vitamin B12 Vitamin B12 2020-1 No 1000ug Common (Cyanocobal (Cyanocobal 2-30 S pirit rivera) rivera) 00:00: - [facility] [address] [facility] [place] Vitamin B12 Vitamin B12 2020-1 No 1000ug Common (Cyanocobal (Cyanocobal 2-30 S pirit rivera) rivera) 00:00: - [facility] [address] [facility] [place] Vitamin B12 Vitamin B12 2020-1 No 1000ug Common (Cyanocobal (Cyanocobal 2-30 S pirit rivera) rivera) 00:00: - [facility] [address] [facility] [place] Vitamin B12 Vitamin B12 2020-1 No 1000ug Common (Cyanocobal (Cyanocobal 2-30 S pirit rivera) rivera) 00:00: - [facility] [address] [facility] [place] Vitamin B12 Vitamin B12 2020-1 No 1000ug Common (Cyanocobal (Cyanocobal 2-30 S pirit rivera) rivera) 00:00: - [facility] [address] [facility] [place] Vitamin B12 Vitamin B12 2020-1 No 1000ug Common (Cyanocobal (Cyanocobal 2-30 S pirit rivera) rivera) 00:00: - [facility] [address] [facility] [place] Vitamin B12 Vitamin B12 2020-1 No 1000ug Common (Cyanocobal (Cyanocobal 2-30 S pirit rivera) rivera) 00:00: - [facility] [address] [facility] [place] Vitamin B12 Vitamin B12 2020-1 No 1000ug Common (Cyanocobal (Cyanocobal 2-30 S pirit rivera) rivera) 00:00: - [facility] [address] [facility] [place] Vitamin B12 Vitamin B12 2020-1 No 1000ug Common (Cyanocobal (Cyanocobal 2-30 S pirit rivera) rivera) 00:00: - [facility] [address] [facility] [place] Vitamin B12 Vitamin B12 2020-1 No 1000ug Common (Cyanocobal (Cyanocobal 2-30 S pirit rivera) rivera) 00:00: - [facility] [address] [facility] [place] Vitamin B12 Vitamin B12 2020-1 No 1000ug Common (Cyanocobal (Cyanocobal 2-30 S pirit rivera) rivera) 00:00: - [facility] [address] [facility] [place] Vitamin B12 Vitamin B12 2020-1 No 1000ug Common (Cyanocobal (Cyanocobal 2-30 S pirit rivera) rivera) 00:00: - [facility] [address] [facility] [place] Vitamin B12 Vitamin B12 2020-1 No 1000ug Common (Cyanocobal (Cyanocobal 2-30 S pirit rivera) rivera) 00:00: - [facility] [address] [facility] [place] Vitamin B12 Vitamin B12 2020-1 No 1000ug Common (Cyanocobal (Cyanocobal 2-30 S pirit rivera) rivera) 00:00: - [facility] [address] [facility] [place] Vitamin B12 Vitamin B12 2020-1 No 1000ug Common (Cyanocobal (Cyanocobal 2-30 S pirit rivera) rivera) 00:00: - [facility] [address] [facility] [place] Vitamin B12 Vitamin B12 2020-1 No 1000ug Common (Cyanocobal (Cyanocobal 2-30 S pirit rivera) rivera) 00:00: - [facility] [address] [facility] [place] Vitamin B12 Vitamin B12 2020-1 No 1000ug Common (Cyanocobal (Cyanocobal 2-30 S pirit rivera) rivera) 00:00: - [facility] [address] [facility] [place] Vitamin B12 Vitamin B12 2020-1 No 1000ug Common (Cyanocobal (Cyanocobal 2-30 S pirit rivera) rivera) 00:00: - [facility] [address] [facility] [place] Vitamin B12 Vitamin B12 2020-1 No 1000ug Common (Cyanocobal (Cyanocobal 2-30 S pirit rivera) rivera) 00:00: - [facility] [address] [facility] [place] Vitamin B12 Vitamin B12 2020-1 No 1000ug Common (Cyanocobal (Cyanocobal 2-30 S pirit rivera) rivera) 00:00: - [facility] [address] [facility] [place] Vitamin B12 Vitamin B12 2020-1 No 1000ug Common (Cyanocobal (Cyanocobal 2-15 S pirit rivera) rivera) 00:00: - [facility] [address] [facility] [place] Vitamin B12 Vitamin B12 2020-1 No 1000ug Common (Cyanocobal (Cyanocobal 2-15 S pirit rivera) rivera) 00:00: - [facility] [address] [facility] [place] Vitamin B12 Vitamin B12 2020-1 No 1000ug Common (Cyanocobal (Cyanocobal 2-15 S pirit rivera) rivera) 00:00: - [facility] [address] [facility] [place] Vitamin B12 Vitamin B12 2020-1 No 1000ug Common (Cyanocobal (Cyanocobal 2-15 S pirit rivera) rivera) 00:00: - [facility] [address] [facility] [place] Vitamin B12 Vitamin B12 2020-1 No 1000ug Common (Cyanocobal (Cyanocobal 2-15 S pirit rivera) rivera) 00:00: - [facility] [address] [facility] [place] Vitamin B12 Vitamin B12 2020-1 No 1000ug Common (Cyanocobal (Cyanocobal 2-15 S pirit rivera) rivera) 00:00: - [facility] [address] [facility] [place] Vitamin B12 Vitamin B12 2020-1 No 1000ug Common (Cyanocobal (Cyanocobal 2-15 S pirit rivera) rivera) 00:00: - [facility] [address] [facility] [place] Vitamin B12 Vitamin B12 2020-1 No 1000ug Common (Cyanocobal (Cyanocobal 2-15 S pirit rivera) rivera) 00:00: - [facility] [address] [facility] [place] Vitamin B12 Vitamin B12 2020-1 No 1000ug Common (Cyanocobal (Cyanocobal 2-15 S pirit rivera) rivera) 00:00: - [facility] [address] [facility] [place] Vitamin B12 Vitamin B12 2020-1 No 1000ug Common (Cyanocobal (Cyanocobal 2-15 S pirit rivera) rivera) 00:00: - [facility] [address] [facility] [place] Vitamin B12 Vitamin B12 2020-1 No 1000ug Common (Cyanocobal (Cyanocobal 2-15 S pirit rivera) rivera) 00:00: - [facility] [address] [facility] [place] Vitamin B12 Vitamin B12 2020-1 No 1000ug Common (Cyanocobal (Cyanocobal 2-15 S pirit rivera) rivera) 00:00: - [facility] [address] [facility] [place] Vitamin B12 Vitamin B12 2020-1 No 1000ug Common (Cyanocobal (Cyanocobal 2-15 S pirit rivera) rivera) 00:00: - [facility] [address] [facility] [place] Vitamin B12 Vitamin B12 2020-1 No 1000ug Common (Cyanocobal (Cyanocobal 2-15 S pirit rivera) rivera) 00:00: - [facility] [address] [facility] [place] Vitamin B12 Vitamin B12 2020-1 No 1000ug Common (Cyanocobal (Cyanocobal 2-15 S pirit rivera) rivera) 00:00: - [facility] [address] [facility] [place] Vitamin B12 Vitamin B12 2020-1 No 1000ug Common (Cyanocobal (Cyanocobal 2-15 S pirit rivera) rivera) 00:00: - [facility] [address] [facility] [place] Vitamin B12 Vitamin B12 2020-1 No 1000ug Common (Cyanocobal (Cyanocobal 2-15 S pirit rivera) rivera) 00:00: - [facility] [address] [facility] [place] Vitamin B12 Vitamin B12 2020-1 No 1000ug Common (Cyanocobal (Cyanocobal 2-15 S pirit rivera) rivera) 00:00: - [facility] [address] [facility] [place] Vitamin B12 Vitamin B12 2020-1 No 1000ug Common (Cyanocobal (Cyanocobal 2-15 S pirit rivera) rivera) 00:00: - [facility] [address] [facility] [place] Vitamin B12 Vitamin B12 2020-1 No 1000ug Common (Cyanocobal (Cyanocobal 2-15 S pirit rivera) rivera) 00:00: - [facility] [address] [facility] [place] Vitamin B12 Vitamin B12 2020-1 No 1000ug Common (Cyanocobal (Cyanocobal 2-15 S pirit rivera) rivera) 00:00: - [facility] [address] [facility] [place] Vitamin B12 Vitamin B12 2020-1 No 1000ug Common (Cyanocobal (Cyanocobal 2-15 S pirit rivera) rivera) 00:00: - [facility] [address] [facility] [place] Vitamin B12 Vitamin B12 2020-1 No 1000ug Common (Cyanocobal (Cyanocobal 2-15 S pirit rivera) rivera) 00:00: - [facility] [address] [facility] [place] Vitamin B12 Vitamin B12 2020-1 No 1000ug Common (Cyanocobal (Cyanocobal 2-15 S pirit rivera) rivera) 00:00: - [facility] [address] [facility] [place] Vitamin B12 Vitamin B12 2020-1 No 1000ug Common (Cyanocobal (Cyanocobal 2-15 S pirit rivera) rivera) 00:00: - [facility] [address] [facility] [place] Vitamin B12 Vitamin B12 2020-1 No 1000ug Common (Cyanocobal (Cyanocobal 2-15 S pirit rivera) rivera) 00:00: - [facility] [address] [facility] [place] Vitamin B12 Vitamin B12 2020-1 No 1000ug Common (Cyanocobal (Cyanocobal 2-15 S pirit rivera) rivera) 00:00: - [facility] [address] [facility] [place] Vitamin B12 Vitamin B12 2020-1 No 1000ug Common (Cyanocobal (Cyanocobal 2-15 S pirit rivera) rivera) 00:00: - [facility] [address] [facility] [place] Vitamin B12 Vitamin B12 2020-1 No 1000ug Common (Cyanocobal (Cyanocobal 2-15 S pirit rivera) rivera) 00:00: - [facility] [address] [facility] [place] Vitamin B12 Vitamin B12 2020-1 No 1000ug Common (Cyanocobal (Cyanocobal 2-15 S pirit rivera) rivera) 00:00: - [facility] [address] [facility] [place] Vitamin B12 Vitamin B12 2020-1 No 1000ug Common (Cyanocobal (Cyanocobal 2-15 S pirit rivera) rivera) 00:00: - [facility] [address] [facility] [place] Vitamin B12 Vitamin B12 2020-1 No 1000ug Common (Cyanocobal (Cyanocobal 2-15 S pirit rivera) rivera) 00:00: - [facility] [address] [facility] [place] Vitamin B12 Vitamin B12 2020-1 No 1000ug Common (Cyanocobal (Cyanocobal 2-15 S pirit rivera) rivera) 00:00: - [facility] [address] [facility] [place] Vitamin B12 Vitamin B12 2020-1 No 1000ug Common (Cyanocobal (Cyanocobal 2-15 S pirit rivera) rivera) 00:00: - [facility] [address] [facility] [place] Vitamin B12 Vitamin B12 2020-1 No 1000ug Common (Cyanocobal (Cyanocobal 2-15 S pirit rivera) rivera) 00:00: - [facility] [address] [facility] [place] Vitamin B12 Vitamin B12 2020-1 No 1000ug Common (Cyanocobal (Cyanocobal 2-15 S pirit rivera) rivera) 00:00: - [facility] [address] [facility] [place] Vitamin B12 Vitamin B12 2020-1 No 1000ug Common (Cyanocobal (Cyanocobal 2-15 S pirit rivera) rivera) 00:00: - [facility] [address] [facility] [place] Vitamin B12 Vitamin B12 2020-1 No 1000ug Common (Cyanocobal (Cyanocobal 2-01 S pirit rivera) rivera) 00:00: - [facility] [address] [facility] [place] Vitamin B12 Vitamin B12 2020-1 No 1000ug Common (Cyanocobal (Cyanocobal 2-01 S pirit rivera) rivera) 00:00: - [facility] [address] [facility] [place] Vitamin B12 Vitamin B12 2020-1 No 1000ug Common (Cyanocobal (Cyanocobal 2-01 S pirit rivera) rivera) 00:00: - [facility] [address] [facility] [place] Vitamin B12 Vitamin B12 2020-1 No 1000ug Common (Cyanocobal (Cyanocobal 2-01 S pirit rivera) rivera) 00:00: - [facility] [address] [facility] [place] Vitamin B12 Vitamin B12 2020-1 No 1000ug Common (Cyanocobal (Cyanocobal 2-01 S pirit rivera) rivera) 00:00: - [facility] [address] [facility] [place] Vitamin B12 Vitamin B12 2020-1 No 1000ug Common (Cyanocobal (Cyanocobal 2-01 S pirit rivera) rivera) 00:00: - [facility] [address] [facility] [place] Vitamin B12 Vitamin B12 2020-1 No 1000ug Common (Cyanocobal (Cyanocobal 2-01 S pirit rivera) rivera) 00:00: - [facility] [address] [facility] [place] Vitamin B12 Vitamin B12 2020-1 No 1000ug Common (Cyanocobal (Cyanocobal 2-01 S pirit rivera) rivera) 00:00: - [facility] [address] [facility] [place] Vitamin B12 Vitamin B12 2020-1 No 1000ug Common (Cyanocobal (Cyanocobal 2-01 S pirit rivera) rivera) 00:00: - [facility] [address] [facility] [place] Vitamin B12 Vitamin B12 2020-1 No 1000ug Common (Cyanocobal (Cyanocobal 2-01 S pirit rivera) rivera) 00:00: - [facility] [address] [facility] [place] Vitamin B12 Vitamin B12 2020-1 No 1000ug Common (Cyanocobal (Cyanocobal 2-01 S pirit rivera) rivera) 00:00: - [facility] [address] [facility] [place] Vitamin B12 Vitamin B12 2020-1 No 1000ug Common (Cyanocobal (Cyanocobal 2-01 S pirit rivera) rivera) 00:00: - [facility] [address] [facility] [place] Vitamin B12 Vitamin B12 2020-1 No 1000ug Common (Cyanocobal (Cyanocobal 2-01 S pirit rivera) rivera) 00:00: - [facility] [address] [facility] [place] Vitamin B12 Vitamin B12 2020-1 No 1000ug Common (Cyanocobal (Cyanocobal 2-01 S pirit rivera) rivera) 00:00: - [facility] [address] [facility] [place] Vitamin B12 Vitamin B12 2020-1 No 1000ug Common (Cyanocobal (Cyanocobal 2-01 S pirit rivera) rivera) 00:00: - [facility] [address] [facility] [place] Vitamin B12 Vitamin B12 2020-1 No 1000ug Common (Cyanocobal (Cyanocobal 2-01 S pirit rivera) rviera) 00:00: - [facility] [address] [facility] [place] Vitamin B12 Vitamin B12 2020-1 No 1000ug Common (Cyanocobal (Cyanocobal 2-01 S pirit rivera) rivera) 00:00: - [facility] [address] [facility] [place] Vitamin B12 Vitamin B12 2020-1 No 1000ug Common (Cyanocobal (Cyanocobal 2-01 S pirit rivera) rivera) 00:00: - [facility] [address] [facility] [place] Vitamin B12 Vitamin B12 2020-1 No 1000ug Common (Cyanocobal (Cyanocobal 2-01 S pirit rivera) rivera) 00:00: - [facility] [address] [facility] [place] Vitamin B12 Vitamin B12 2020-1 No 1000ug Common (Cyanocobal (Cyanocobal 2-01 S pirit rivera) rivera) 00:00: - [facility] [address] [facility] [place] Vitamin B12 Vitamin B12 2020-1 No 1000ug Common (Cyanocobal (Cyanocobal 2-01 S pirit rivera) rivera) 00:00: - [facility] [address] [facility] [place] Vitamin B12 Vitamin B12 2020-1 No 1000ug Common (Cyanocobal (Cyanocobal 2-01 S pirit rivera) rivera) 00:00: - [facility] [address] [facility] [place] Vitamin B12 Vitamin B12 2020-1 No 1000ug Common (Cyanocobal (Cyanocobal 2-01 S pirit rivera) rivera) 00:00: - [facility] [address] [facility] [place] Vitamin B12 Vitamin B12 2020-1 No 1000ug Common (Cyanocobal (Cyanocobal 2-01 S pirit rivera) rivera) 00:00: - [facility] [address] [facility] [place] Vitamin B12 Vitamin B12 2020-1 No 1000ug Common (Cyanocobal (Cyanocobal 2-01 S pirit rivera) rivera) 00:00: - [facility] [address] [facility] [place] Vitamin B12 Vitamin B12 2020-1 No 1000ug Common (Cyanocobal (Cyanocobal 2-01 S pirit rivera) rivera) 00:00: - [facility] [address] [facility] [place] Vitamin B12 Vitamin B12 2020-1 No 1000ug Common (Cyanocobal (Cyanocobal 2-01 S pirit rivera) rivera) 00:00: - [facility] [address] [facility] [place] Vitamin B12 Vitamin B12 2020-1 No 1000ug Common (Cyanocobal (Cyanocobal 2-01 S pirit rivera) rivera) 00:00: - [facility] [address] [facility] Vitamin B12 Vitamin B12 2020-1 No 1000ug Common (Cyanocobal (Cyanocobal 2-01 S pirit rivera) rivera) 00:00: - [facility] [address] [facility] Vitamin B12 Vitamin B12 2020-1 No 1000ug Common (Cyanocobal (Cyanocobal 2-01 S pirit rivera) rivera) 00:00: - [facility] [address] [facility] Vitamin B12 Vitamin B12 2020-1 No 1000ug Common (Cyanocobal (Cyanocobal 2-01 S pirit rivera) rivera) 00:00: - [facility] [address] [facility] Vitamin B12 Vitamin B12 2020-1 No 1000ug Common (Cyanocobal (Cyanocobal 2-01 S pirit rivera) rivera) 00:00: - [facility] [address] [facility] Vitamin B12 Vitamin B12 2020-1 No 1000ug Common (Cyanocobal (Cyanocobal 2-01 S pirit rivera) rivera) 00:00: - [facility] [address] [facility] Vitamin B12 Vitamin B12 2020-1 No 1000ug Common (Cyanocobal (Cyanocobal 2-01 S pirit rivera) rivera) 00:00: - [facility] [address] [facility] Vitamin B12 Vitamin B12 2020-1 No 1000ug Common (Cyanocobal (Cyanocobal 2-01 S pirit rivera) rivera) 00:00: - [facility] [address] [facility] Vitamin B12 Vitamin B12 2020-1 No 1000ug Common (Cyanocobal (Cyanocobal 2-01 S pirit rivera) rivera) 00:00: - [facility] [address] [facility] Vitamin B12 Vitamin B12 2020-1 No 1000ug Common (Cyanocobal (Cyanocobal 2-01 S pirit rivera) rivera) 00:00: - [facility] [address] [facility] Bupivicaine Bupivicaine 2020-1 No Common [place]-23 Spirit 00:00: - [facility] [address] [facility] Kenalog Kenalog 2020-1 No 40mg Common (Triamcinol (Triamcinol 1-23 S pirit one) one) 00:00: - [facility] [address] [facility] Bupivicaine Bupivicaine 2020-1 No Common [place] 1-23 Spirit 00:00: - [facility] [address] [facility] Kenalog Kenalog 2020-1 No 40mg Common (Triamcinol (Triamcinol 1-23 S pirit one) one) 00:00: - [facility] [address] [facility] Bupivicaine Bupivicaine 2020-1 No Common [place] 1-23 Spirit 00:00: - [facility] [address] [facility] Kenalog Kenalog 2020- No 40mg Common (Triamcinol (Triamcinol 1-23 S pirit one) one) 00:00: - [facility] [address] [facility] Bupivicaine Bupivicaine 2020- No Common [place] 1-23 Spirit 00:00: - [facility] [address] [facility] Kenalog Kenalog 2020- No 40mg Common (Triamcinol (Triamcinol 1-23 S pirit one) one) 00:00: - [facility] [address] [facility] Kenalog Kenalog 2020- No 40mg Common (Triamcinol (Triamcinol 1-23 S pirit one) one) 00:00: - [facility] [address] [facility] Bupivicaine Bupivicaine 2020- No Common [place] 1-23 Spirit 00:00: - [facility] [address] [facility] Bupivicaine Bupivicaine 2020- No 2.5mg Common [place] 1-23 Spirit 00:00: - [facility] [address] [facility] Kenalog Kenalog 2019- No 40mg Common (Triamcinol (Triamcinol 1-23 S pirit one) one) 00:00: - [facility] [address] [facility] Bupivicaine Bupivicaine 2020- No 2.5mg Common [place] 1-23 Spirit 00:00: - [facility] [address] [facility] Kenalog Kenalog 2020- No 40mg Common (Triamcinol (Triamcinol 1-23 S pirit one) one) 00:00: - [facility] [address] [facility] Bupivicaine Bupivicaine 2020- No 2.5mg Common [place] 1-23 Spirit 00:00: - [facility] [address] [facility] Kenalog Kenalog 2020- No 40mg Common (Triamcinol (Triamcinol 1-23 S pirit one) one) 00:00: - [facility] [address] [facility] Bupivicaine Bupivicaine 2020- No 2.5mg Common [place] 1-23 Spirit 00:00: - [facility] [address] [facility] Kenalog Kenalog 2020- No 40mg Common (Triamcinol (Triamcinol 1-23 S pirit one) one) 00:00: - [facility] [address] [facility] Kenalog Kenalog 2020- No 40mg Common (Triamcinol (Triamcinol 1-23 S pirit one) one) 00:00: - [facility] [address] [facility] Bupivicaine Bupivicaine 2020-1 No 2.5mg Common [place] 1-23 Spirit 00:00: - [facility] [address] [facility] Kenalog Kenalog 2019- No 40mg Common (Triamcinol (Triamcinol 1-23 S pirit one) one) 00:00: - [facility] [address] [facility] Bupivicaine Bupivicaine 2020-1 No 2.5mg Common [place] 1-23 Spirit 00:00: - [facility] [address] [facility] Kenalog Kenalog 2019- No 40mg Common (Triamcinol (Triamcinol 1-23 S pirit one) one) 00:00: - [facility] [address] [facility] Bupivicaine Bupivicaine 2020-1 No 2.5mg Common [place] 1-23 Spirit 00:00: - [facility] [address] [facility] Kenalog Kenalog 2019- No 40mg Common (Triamcinol (Triamcinol 1-23 S pirit one) one) 00:00: - [facility] [address] [facility] Bupivicaine Bupivicaine 2019-1 No 2.5mg Common [place] 1-23 Spirit 00:00: - [facility] [address] [facility] Bupivicaine Bupivicaine 2019-1 No 2.5mg Common [place] 1-23 Spirit 00:00: - [facility] [address] [facility] Kenalog Kenalog 2019- No 40mg Common (Triamcinol (Triamcinol 1-23 S pirit one) one) 00:00: - [facility] [address] [facility] Bupivicaine Bupivicaine 2020-1 No 2.5mg Common [place] 1-23 Spirit 00:00: - [facility] [address] [facility] Kenalog Kenalog 2020- No 40mg Common (Triamcinol (Triamcinol 1-23 S pirit one) one) 00:00: - [facility] [address] [facility] Kenalog Kenalog 2020-1 No 40mg Common (Triamcinol (Triamcinol 1-23 S pirit one) one) 00:00: - [facility] [address] [facility] Bupivicaine Bupivicaine 2020-1 No 2.5mg Common [place] 1-23 Spirit 00:00: - [facility] [address] [facility] Kenalog Kenalog 2019- No 40mg Common (Triamcinol (Triamcinol 1-23 S pirit one) one) 00:00: - [facility] [address] [facility] Bupivicaine Bupivicaine 2019-1 No 2.5mg Common [place] 1-23 Spirit 00:00: - [facility] [address] [facility] Kenalog Kenalog 2019- No 40mg Common (Triamcinol (Triamcinol 1-23 S pirit one) one) 00:00: - [facility] [address] [facility] Bupivicaine Bupivicaine 2020-1 No 2.5mg Common [place] 1-23 Spirit 00:00: - [facility] [address] [facility] Kenalog Kenalog 2019- No 40mg Common (Triamcinol (Triamcinol 1-23 S pirit one) one) 00:00: - [facility] [address] [facility] Bupivicaine Bupivicaine 2020-1 No 2.5mg Common [place] 1-23 Spirit 00:00: - [facility] [address] [facility] Kenalog Kenalog 2019- No 40mg Common (Triamcinol (Triamcinol 1-23 S pirit one) one) 00:00: - [facility] [address] [facility] Bupivicaine Bupivicaine 2020-1 No 2.5mg Common [place] 1-23 Spirit 00:00: - [facility] [address] [facility] Kenalog Kenalog 2020-1 No 40mg Common (Triamcinol (Triamcinol 1-23 S pirit one) one) 00:00: - [facility] [address] [facility] Bupivicaine Bupivicaine 2020-1 No 2.5mg Common [place] 1-23 Spirit 00:00: - [facility] [address] [facility] Kenalog Kenalog 2020-1 No 40mg Common (Triamcinol (Triamcinol 1-23 S pirit one) one) 00:00: - [facility] [address] [facility] Bupivicaine Bupivicaine 2020-1 No 2.5mg Common [place] 1-23 Spirit 00:00: - [facility] [address] [facility] Kenalog Kenalog 2019- No 40mg Common (Triamcinol (Triamcinol 1-23 S pirit one) one) 00:00: - [facility] [address] [facility] Bupivicaine Bupivicaine 2020-1 No 2.5mg Common [place] 1-23 Spirit 00:00: - [facility] [address] [facility] Kenalog Kenalog 2019- No 40mg Common (Triamcinol (Triamcinol 1-23 S pirit one) one) 00:00: - [facility] [address] [facility] Bupivicaine Bupivicaine 2020-1 No 2.5mg Common [place] 1-23 Spirit 00:00: - [facility] [address] [facility] Kenalog Kenalog 2019-1 No 40mg Common (Triamcinol (Triamcinol 1-23 S pirit one) one) 00:00: - [facility] [address] [facility] Bupivicaine Bupivicaine 2020-1 No 2.5mg Common [place] 1-23 Spirit 00:00: - [facility] [address] [facility] Bupivicaine Bupivicaine 2020-1 No 2.5mg Common [place] -23 Spirit 00:00: - [facility] [address] [facility] Kenalog Kenalog 2019-1 No 40mg Common (Triamcinol (Triamcinol 1-23 S pirit one) one) 00:00: - [facility] [address] [facility] Kenalog Kenalog 2020-1 No 40mg Common (Triamcinol (Triamcinol 1-23 S pirit one) one) 00:00: - [facility] [address] [facility] Bupivicaine Bupivicaine 2020-1 No 2.5mg Common [place] 1-23 Spirit 00:00: - [facility] [address] [facility] Kenalog Kenalog 2020-1 No 40mg Common (Triamcinol (Triamcinol 1-23 S pirit one) one) 00:00: - [facility] [address] [facility] Bupivicaine Bupivicaine 2020-1 No 2.5mg Common [place] 1-23 Spirit 00:00: - [facility] [address] [facility] Kenalog Kenalog 2020-1 No 40mg Common (Triamcinol (Triamcinol 1-23 S pirit one) one) 00:00: - [facility] [address] [facility] Bupivicaine Bupivicaine 2020-1 No 2.5mg Common [place] 1-23 Spirit 00:00: - [facility] [address] [facility] Kenalog Kenalog 2020-1 No 40mg Common (Triamcinol (Triamcinol 1-23 S pirit one) one) 00:00: - [facility] [address] [facility] Bupivicaine Bupivicaine 2020-1 No 2.5mg Common [place] 1-23 Spirit 00:00: - [facility] [address] [facility] Kenalog Kenalog 2020-1 No 40mg Common (Triamcinol (Triamcinol 1-23 S pirit one) one) 00:00: - [facility] [address] [facility] Bupivicaine Bupivicaine 2020-1 No 2.5mg Common [place] 1-23 Spirit 00:00: - [facility] [address] [facility] Kenalog Kenalog 2020-1 No 40mg Common (Triamcinol (Triamcinol 1-23 S pirit one) one) 00:00: - [facility] [address] [facility] Bupivicaine Bupivicaine 2020-1 No 2.5mg Common [place] 1-23 Spirit 00:00: - [facility] [address] [facility] Kenalog Kenalog 2020-1 No 40mg Common (Triamcinol (Triamcinol 1-23 S pirit one) one) 00:00: - [facility] [address] [facility] Bupivicaine Bupivicaine 2020-1 No 2.5mg Common [place] 1-23 Spirit 00:00: - [facility] [address] [facility] Kenalog Kenalog 2020-1 No 40mg Common (Triamcinol (Triamcinol 1-23 S pirit one) one) 00:00: - [facility] [address] [facility] Bupivicaine Bupivicaine 2020-1 No 2.5mg Common [place] 1-23 Spirit 00:00: - [facility] [address] [facility] Bupivicaine Bupivicaine 2020-1 No Common [place] 1-23 Spirit 00:00: - [facility] [address] [facility] Kenalog Kenalog 2020-1 No 40mg Common (Triamcinol (Triamcinol 1-23 S pirit one) one) 00:00: - [facility] [address] [facility] Kenalog Kenalog 2020-1 No 40mg Common (Triamcinol (Triamcinol 1-23 S pirit one) one) 00:00: - [facility] [address] [facility] Bupivicaine Bupivicaine 2020-1 No Common [place] 1-23 Spirit 00:00: - [facility] [address] [facility] Bupivicaine Bupivicaine 2020-1 No Common [place] 1-23 Spirit 00:00: - [facility] [address] [facility] Kenalog Kenalog 2020-1 No 40mg Common (Triamcinol (Triamcinol 1-23 S pirit one) one) 00:00: - [facility] [address] [facility] Vitamin B12 Vitamin B12 2020-1 No 1000ug Common (Cyanocobal (Cyanocobal 1-17 S pirit rivera) rivera) 00:00: - [facility] [address] [facility] Vitamin B12 Vitamin B12 2020-1 No 1000ug Common (Cyanocobal (Cyanocobal 1-17 S pirit rivera) rivera) 00:00: - [facility] [address] [facility] Vitamin B12 Vitamin B12 2020-1 No 1000ug Common (Cyanocobal (Cyanocobal 1-17 S pirit rivera) rivera) 00:00: - [facility] [address] [facility] Vitamin B12 Vitamin B12 2020-1 No 1000ug Common (Cyanocobal (Cyanocobal 1-17 S pirit rivera) rivera) 00:00: - [facility] [address] [facility] Vitamin B12 Vitamin B12 2020-1 No 1000ug Common (Cyanocobal (Cyanocobal 1-17 S pirit rivera) rivera) 00:00: - [facility] [address] [facility] Vitamin B12 Vitamin B12 2020-1 No 1000ug Common (Cyanocobal (Cyanocobal 1-17 S pirit rivera) rivera) 00:00: - [facility] [address] [facility] Vitamin B12 Vitamin B12 2020-1 No 1000ug Common (Cyanocobal (Cyanocobal 1-17 S pirit rivera) rivera) 00:00: - [facility] [address] [facility] Vitamin B12 Vitamin B12 2020-1 No 1000ug Common (Cyanocobal (Cyanocobal 1-17 S pirit rivera) rivera) 00:00: - [facility] [address] [facility] Vitamin B12 Vitamin B12 2020-1 No 1000ug Common (Cyanocobal (Cyanocobal 1-17 S pirit rivera) rivera) 00:00: - [facility] [address] [facility] Vitamin B12 Vitamin B12 2020-1 No 1000ug Common (Cyanocobal (Cyanocobal 1-17 S pirit rivera) rivera) 00:00: - [facility] [address] [facility] Vitamin B12 Vitamin B12 2020-1 No 1000ug Common (Cyanocobal (Cyanocobal 1-17 S pirit rivera) rivera) 00:00: - [facility] [address] [facility] Vitamin B12 Vitamin B12 2020-1 No 1000ug Common (Cyanocobal (Cyanocobal 1-17 S pirit rivera) rivera) 00:00: - [facility] [address] [facility] Vitamin B12 Vitamin B12 2020-1 No 1000ug Common (Cyanocobal (Cyanocobal 1-17 S pirit rivera) rivera) 00:00: - [facility] [address] [facility] Vitamin B12 Vitamin B12 2020-1 No 1000ug Common (Cyanocobal (Cyanocobal 1-17 S pirit rivera) rivera) 00:00: - [facility] [address] [facility] Vitamin B12 Vitamin B12 2020-1 No 1000ug Common (Cyanocobal (Cyanocobal 1-17 S pirit rivera) rivera) 00:00: - [facility] [address] [facility] Vitamin B12 Vitamin B12 2020-1 No 1000ug Common (Cyanocobal (Cyanocobal 1-17 S pirit rivera) rivera) 00:00: - [facility] [address] [facility] Vitamin B12 Vitamin B12 2020-1 No 1000ug Common (Cyanocobal (Cyanocobal 1-17 S pirit rivera) rivera) 00:00: - [facility] [address] [facility] Vitamin B12 Vitamin B12 2020-1 No 1000ug Common (Cyanocobal (Cyanocobal 1-17 S pirit rivera) rivera) 00:00: - [facility] [address] [facility] Vitamin B12 Vitamin B12 2020-1 No 1000ug Common (Cyanocobal (Cyanocobal 1-17 S pirit rivera) rivera) 00:00: - [facility] [address] [facility] Vitamin B12 Vitamin B12 2020-1 No 1000ug Common (Cyanocobal (Cyanocobal 1-17 S pirit rivera) rivera) 00:00: - [facility] [address] [facility] Vitamin B12 Vitamin B12 2020-1 No 1000ug Common (Cyanocobal (Cyanocobal 1-17 S pirit rivera) rivera) 00:00: - [facility] [address] [facility] Vitamin B12 Vitamin B12 2020-1 No 1000ug Common (Cyanocobal (Cyanocobal 1-17 S pirit rivera) rivera) 00:00: - [facility] [address] [facility] Vitamin B12 Vitamin B12 2020-1 No 1000ug Common (Cyanocobal (Cyanocobal 1-17 S pirit rivera) rivera) 00:00: - [facility] [address] [facility] Vitamin B12 Vitamin B12 2020-1 No 1000ug Common (Cyanocobal (Cyanocobal 1-17 S pirit rivera) rivera) 00:00: - [facility] [address] [facility] Vitamin B12 Vitamin B12 2020-1 No 1000ug Common (Cyanocobal (Cyanocobal 1-17 S pirit rivera) rivera) 00:00: - [facility] [address] [facility] Vitamin B12 Vitamin B12 2020-1 No 1000ug Common (Cyanocobal (Cyanocobal 1-17 S pirit rivera) rivera) 00:00: - [facility] [address] [facility] Vitamin B12 Vitamin B12 2020-1 No 1000ug Common (Cyanocobal (Cyanocobal 1-17 S pirit rivera) rivera) 00:00: - [facility] [address] [facility] Vitamin B12 Vitamin B12 2020-1 No 1000ug Common (Cyanocobal (Cyanocobal 1-17 S pirit rivera) rivera) 00:00: - [facility] [address] [facility] Vitamin B12 Vitamin B12 2020-1 No 1000ug Common (Cyanocobal (Cyanocobal 1-17 S pirit rivera) rivera) 00:00: - [facility] [address] [facility] Vitamin B12 Vitamin B12 2020-1 No 1000ug Common (Cyanocobal (Cyanocobal 1-17 S pirit rivera) rivera) 00:00: - [facility] [address] [facility] Vitamin B12 Vitamin B12 2020-1 No 1000ug Common (Cyanocobal (Cyanocobal 1-17 S pirit rivera) rivera) 00:00: - [facility] [address] [facility] Vitamin B12 Vitamin B12 2020-1 No 1000ug Common (Cyanocobal (Cyanocobal 1-17 S pirit rivera) rivera) 00:00: - [facility] [address] [facility] Vitamin B12 Vitamin B12 2020-1 No 1000ug Common (Cyanocobal (Cyanocobal 1-17 S pirit rivera) rivera) 00:00: - [facility] [address] [facility] Vitamin B12 Vitamin B12 2020-1 No 1000ug Common (Cyanocobal (Cyanocobal 1-17 S pirit rivera) rivera) 00:00: - [facility] [address] [facility] Vitamin B12 Vitamin B12 2020-1 No 1000ug Common (Cyanocobal (Cyanocobal 1-17 S pirit rivera) rivera) 00:00: - [facility] [address] [facility] Vitamin B12 Vitamin B12 2020-1 No 1000ug Common (Cyanocobal (Cyanocobal 1-17 S pirit rivera) rivera) 00:00: - [facility] [address] [facility] Vitamin B12 Vitamin B12 2020-1 No 1000ug Common (Cyanocobal (Cyanocobal 1-17 S pirit rivera) rivera) 00:00: - [facility] [address] [facility] Vitamin B12 Vitamin B12 2020-1 No 1000ug Common (Cyanocobal (Cyanocobal 1-03 S pirit rivera) rivera) 00:00: - [facility] [address] [facility] Vitamin B12 Vitamin B12 2020-1 No 1000ug Common (Cyanocobal (Cyanocobal 1-03 S pirit rivera) rivera) 00:00: - [facility] [address] [facility] Vitamin B12 Vitamin B12 2020-1 No 1000ug Common (Cyanocobal (Cyanocobal 1-03 S pirit rivera) rivera) 00:00: - [facility] [address] [facility] Vitamin B12 Vitamin B12 2020-1 No 1000ug Common (Cyanocobal (Cyanocobal 1-03 S pirit rivera) rivera) 00:00: - [facility] [address] [facility] Vitamin B12 Vitamin B12 2020-1 No 1000ug Common (Cyanocobal (Cyanocobal 1-03 S pirit rivera) rivera) 00:00: - [facility] [address] [facility] Vitamin B12 Vitamin B12 2020-1 No 1000ug Common (Cyanocobal (Cyanocobal 1-03 S pirit rivera) rivera) 00:00: - [facility] [address] [facility] Vitamin B12 Vitamin B12 2020-1 No 1000ug Common (Cyanocobal (Cyanocobal 1-03 S pirit rivera) rivera) 00:00: - [facility] [address] [facility] Vitamin B12 Vitamin B12 2020-1 No 1000ug Common (Cyanocobal (Cyanocobal 1-03 S pirit rivera) rivera) 00:00: - [facility] [address] [facility] Vitamin B12 Vitamin B12 2020-1 No 1000ug Common (Cyanocobal (Cyanocobal 1-03 S pirit rivera) rivera) 00:00: - [facility] [address] [facility] Vitamin B12 Vitamin B12 2020-1 No 1000ug Common (Cyanocobal (Cyanocobal 1-03 S pirit rivera) rivera) 00:00: - [facility] [address] [facility] Vitamin B12 Vitamin B12 2020-1 No 1000ug Common (Cyanocobal (Cyanocobal 1-03 S pirit rivera) rivera) 00:00: - [facility] [address] [facility] Vitamin B12 Vitamin B12 2020-1 No 1000ug Common (Cyanocobal (Cyanocobal 1-03 S pirit rivera) rivera) 00:00: - [facility] [address] [facility] Vitamin B12 Vitamin B12 2020-1 No 1000ug Common (Cyanocobal (Cyanocobal 1-03 S pirit rivera) rivera) 00:00: - [facility] [address] [facility] Vitamin B12 Vitamin B12 2020-1 No 1000ug Common (Cyanocobal (Cyanocobal 1-03 S pirit rivera) rivera) 00:00: - [facility] [address] [facility] Vitamin B12 Vitamin B12 2020-1 No 1000ug Common (Cyanocobal (Cyanocobal 1-03 S pirit rivera) rivera) 00:00: - [facility] [address] [facility] Vitamin B12 Vitamin B12 2020-1 No 1000ug Common (Cyanocobal (Cyanocobal 1-03 S pirit rivera) rivera) 00:00: - [facility] [address] [facility] Vitamin B12 Vitamin B12 2020-1 No 1000ug Common (Cyanocobal (Cyanocobal 1-03 S pirit rivera) rivera) 00:00: - [facility] [address] [facility] Vitamin B12 Vitamin B12 2020-1 No 1000ug Common (Cyanocobal (Cyanocobal 1-03 S pirit rivera) rivera) 00:00: - [facility] [address] [facility] Vitamin B12 Vitamin B12 2020-1 No 1000ug Common (Cyanocobal (Cyanocobal 1-03 S pirit rivera) rivera) 00:00: - [facility] [address] [facility] Vitamin B12 Vitamin B12 2020-1 No 1000ug Common (Cyanocobal (Cyanocobal 1-03 S pirit rivera) rivera) 00:00: - [facility] [address] [facility] Vitamin B12 Vitamin B12 2020-1 No 1000ug Common (Cyanocobal (Cyanocobal 1-03 S pirit rivera) rivera) 00:00: - [facility] [address] [facility] Vitamin B12 Vitamin B12 2020-1 No 1000ug Common (Cyanocobal (Cyanocobal 1-03 S pirit rivera) rivera) 00:00: - [facility] [address] [facility] Vitamin B12 Vitamin B12 2020-1 No 1000ug Common (Cyanocobal (Cyanocobal 1-03 S pirit rivera) rivera) 00:00: - [facility] [address] [facility] Vitamin B12 Vitamin B12 2020-1 No 1000ug Common (Cyanocobal (Cyanocobal 1-03 S pirit rivera) rivera) 00:00: - [facility] [address] [facility] Vitamin B12 Vitamin B12 2020-1 No 1000ug Common (Cyanocobal (Cyanocobal 1-03 S pirit rivera) rivera) 00:00: - [facility] [address] [facility] Vitamin B12 Vitamin B12 2020-1 No 1000ug Common (Cyanocobal (Cyanocobal 1-03 S pirit rivera) rivera) 00:00: - [facility] [address] [facility] Vitamin B12 Vitamin B12 2020-1 No 1000ug Common (Cyanocobal (Cyanocobal 1-03 S pirit rivera) rivera) 00:00: - [facility] [address] [facility] Vitamin B12 Vitamin B12 2020-1 No 1000ug Common (Cyanocobal (Cyanocobal 1-03 S pirit rivera) rivera) 00:00: - [facility] [address] [facility] Vitamin B12 Vitamin B12 2020-1 No 1000ug Common (Cyanocobal (Cyanocobal 1-03 S pirit rivera) rivera) 00:00: - [facility] [address] [facility] Vitamin B12 Vitamin B12 2020-1 No 1000ug Common (Cyanocobal (Cyanocobal 1-03 S pirit rivera) rivera) 00:00: - [facility] [address] [facility] Vitamin B12 Vitamin B12 2020-1 No 1000ug Common (Cyanocobal (Cyanocobal 1-03 S pirit rivera) rivera) 00:00: - [facility] [address] [facility] Vitamin B12 Vitamin B12 2020-1 No 1000ug Common (Cyanocobal (Cyanocobal 1-03 S pirit rivera) rivera) 00:00: - [facility] [address] [facility] Vitamin B12 Vitamin B12 2020-1 No 1000ug Common (Cyanocobal (Cyanocobal 1-03 S pirit rivera) rivera) 00:00: - [facility] [address] [facility] Vitamin B12 Vitamin B12 2020-1 No 1000ug Common (Cyanocobal (Cyanocobal 1-03 S pirit rivera) rivera) 00:00: - [facility] [address] [facility] Vitamin B12 Vitamin B12 2020-1 No 1000ug Common (Cyanocobal (Cyanocobal 1-03 S pirit rivera) rivera) 00:00: - [facility] [address] [facility] Vitamin B12 Vitamin B12 2020-1 No 1000ug Common (Cyanocobal (Cyanocobal 1-03 S pirit rivera) rivera) 00:00: - [facility] [address] [facility] Vitamin B12 Vitamin B12 2020-1 No 1000ug Common (Cyanocobal (Cyanocobal 1-03 S pirit rivera) rivera) 00:00: - [facility] [address] [facility] Vitamin B12 Vitamin B12 2020-1 No 1000ug Common (Cyanocobal (Cyanocobal 0-23 S pirit rivera) rivera) 00:00: - [facility] [address] [facility] Vitamin B12 Vitamin B12 2020-1 No 1000ug Common (Cyanocobal (Cyanocobal 0-23 S pirit rivera) rivera) 00:00: - [facility] [address] [facility] Vitamin B12 Vitamin B12 2020-1 No 1000ug Common (Cyanocobal (Cyanocobal 0-23 S pirit rivera) rivera) 00:00: - [facility] [address] [facility] Vitamin B12 Vitamin B12 2020-1 No 1000ug Common (Cyanocobal (Cyanocobal 0-23 S pirit rivera) rivera) 00:00: - [facility] [address] [facility] Vitamin B12 Vitamin B12 2020-1 No 1000ug Common (Cyanocobal (Cyanocobal 0-23 S pirit rivera) rivera) 00:00: - [facility] [address] [facility] Vitamin B12 Vitamin B12 2020-1 No 1000ug Common (Cyanocobal (Cyanocobal 0-23 S pirit rivera) rivera) 00:00: - [facility] [address] [facility] Vitamin B12 Vitamin B12 2020-1 No 1000ug Common (Cyanocobal (Cyanocobal 0-23 S pirit rivera) rivera) 00:00: - [facility] [address] [facility] Vitamin B12 Vitamin B12 2020-1 No 1000ug Common (Cyanocobal (Cyanocobal 0-23 S pirit rivera) rivera) 00:00: - [facility] [address] [facility] Vitamin B12 Vitamin B12 2020-1 No 1000ug Common (Cyanocobal (Cyanocobal 0-23 S pirit rivera) rivera) 00:00: - [facility] [address] [facility] Vitamin B12 Vitamin B12 2020-1 No 1000ug Common (Cyanocobal (Cyanocobal 0-23 S pirit rivera) rivera) 00:00: - [facility] [address] [facility] Vitamin B12 Vitamin B12 2020-1 No 1000ug Common (Cyanocobal (Cyanocobal 0-23 S pirit rivera) rivera) 00:00: - [facility] [address] [facility] Vitamin B12 Vitamin B12 2020-1 No 1000ug Common (Cyanocobal (Cyanocobal 0-23 S pirit rivera) rivera) 00:00: - [facility] [address] [facility] Vitamin B12 Vitamin B12 2020-1 No 1000ug Common (Cyanocobal (Cyanocobal 0-23 S pirit rivera) rivera) 00:00: - [facility] [address] [facility] Vitamin B12 Vitamin B12 2020-1 No 1000ug Common (Cyanocobal (Cyanocobal 0-23 S pirit rivera) rivera) 00:00: - [facility] [address] [facility] Vitamin B12 Vitamin B12 2020-1 No 1000ug Common (Cyanocobal (Cyanocobal 0-23 S pirit rivera) rivera) 00:00: - [facility] [address] [facility] Vitamin B12 Vitamin B12 2020-1 No 1000ug Common (Cyanocobal (Cyanocobal 0-23 S pirit rivera) rivear) 00:00: - [facility] [address] [facility] Vitamin B12 Vitamin B12 2020-1 No 1000ug Common (Cyanocobal (Cyanocobal 0-23 S pirit rivera) rivera) 00:00: - [facility] [address] [facility] Vitamin B12 Vitamin B12 2020-1 No 1000ug Common (Cyanocobal (Cyanocobal 0-23 S pirit rivera) rivera) 00:00: - [facility] [address] [facility] Vitamin B12 Vitamin B12 2020-1 No 1000ug Common (Cyanocobal (Cyanocobal 0-23 S pirit rivera) rivera) 00:00: - [facility] [address] [facility] Vitamin B12 Vitamin B12 2020-1 No 1000ug Common (Cyanocobal (Cyanocobal 0-23 S pirit rivera) rivera) 00:00: - [facility] [address] [facility] Vitamin B12 Vitamin B12 2020-1 No 1000ug Common (Cyanocobal (Cyanocobal 0-23 S pirit rivera) rivera) 00:00: - [facility] [address] [facility] Vitamin B12 Vitamin B12 2020-1 No 1000ug Common (Cyanocobal (Cyanocobal 0-23 S pirit rivera) rivera) 00:00: - [facility] [address] [facility] Vitamin B12 Vitamin B12 2020-1 No 1000ug Common (Cyanocobal (Cyanocobal 0-23 S pirit rivera) rivera) 00:00: - [facility] [address] [facility] Vitamin B12 Vitamin B12 2020-1 No 1000ug Common (Cyanocobal (Cyanocobal 0-23 S pirit rivera) rivera) 00:00: - [facility] [address] [facility] Vitamin B12 Vitamin B12 2020-1 No 1000ug Common (Cyanocobal (Cyanocobal 0-23 S pirit rivera) rivera) 00:00: - [facility] [address] [facility] Vitamin B12 Vitamin B12 2020-1 No 1000ug Common (Cyanocobal (Cyanocobal 0-23 S pirit rivera) rivera) 00:00: - [facility] [address] [facility] Vitamin B12 Vitamin B12 2020-1 No 1000ug Common (Cyanocobal (Cyanocobal 0-23 S pirit rivera) rivera) 00:00: - [facility] [address] [facility] Vitamin B12 Vitamin B12 2020-1 No 1000ug Common (Cyanocobal (Cyanocobal 0-23 S pirit rivera) rivera) 00:00: - [facility] [address] [facility] Vitamin B12 Vitamin B12 2020-1 No 1000ug Common (Cyanocobal (Cyanocobal 0-23 S pirit rivera) rivera) 00:00: - [facility] [address] [facility] Vitamin B12 Vitamin B12 2020-1 No 1000ug Common (Cyanocobal (Cyanocobal 0-23 S pirit rivera) rivera) 00:00: - [facility] [address] [facility] Vitamin B12 Vitamin B12 2020-1 No 1000ug Common (Cyanocobal (Cyanocobal 0-23 S pirit rivera) rivera) 00:00: - [facility] [address] [facility] Vitamin B12 Vitamin B12 2020-1 No 1000ug Common (Cyanocobal (Cyanocobal 0-23 S pirit rivera) rivera) 00:00: - [facility] [address] [facility] Vitamin B12 Vitamin B12 2020-1 No 1000ug Common (Cyanocobal (Cyanocobal 0-23 S pirit rivera) rivera) 00:00: - [facility] [address] [facility] Vitamin B12 Vitamin B12 2020-1 No 1000ug Common (Cyanocobal (Cyanocobal 0-23 S pirit rivera) rivera) 00:00: - [facility] [address] [facility] Vitamin B12 Vitamin B12 2020-1 No 1000ug Common (Cyanocobal (Cyanocobal 0-23 S pirit rivera) rivera) 00:00: - [facility] [address] [facility] Vitamin B12 Vitamin B12 2020-1 No 1000ug Common (Cyanocobal (Cyanocobal 0-23 S pirit rivera) rivera) 00:00: - [facility] [address] [facility] Vitamin B12 Vitamin B12 2020-1 No 1000ug Common (Cyanocobal (Cyanocobal 0-23 S pirit rivera) rivera) 00:00: - [facility] [address] [facility] Vitamin B12 Vitamin B12 2020-0 No 1000ug Common (Cyanocobal (Cyanocobal 9-28 S pirit rivera) rivera) 00:00: - [facility] [address] [facility] Vitamin B12 Vitamin B12 2020-0 No 1000ug Common (Cyanocobal (Cyanocobal 9-28 S pirit rivera) rivera) 00:00: - [facility] [address] [facility] Vitamin B12 Vitamin B12 2020-0 No 1000ug Common (Cyanocobal (Cyanocobal 9-28 S pirit rivera) rivera) 00:00: - [facility] [address] [facility] Vitamin B12 Vitamin B12 2020-0 No 1000ug Common (Cyanocobal (Cyanocobal 9-28 S pirit rivera) rivera) 00:00: - [facility] [address] [facility] Vitamin B12 Vitamin B12 2020-0 No 1000ug Common (Cyanocobal (Cyanocobal 9-28 S pirit rivera) rivera) 00:00: - [facility] [address] [facility] Vitamin B12 Vitamin B12 2020-0 No 1000ug Common (Cyanocobal (Cyanocobal 9-28 S pirit rivera) rivera) 00:00: - [facility] [address] [facility] Vitamin B12 Vitamin B12 2020-0 No 1000ug Common (Cyanocobal (Cyanocobal 9-28 S pirit rivera) rivera) 00:00: - [facility] [address] [facility] Vitamin B12 Vitamin B12 2020-0 No 1000ug Common (Cyanocobal (Cyanocobal 9-28 S pirit rivera) rivera) 00:00: - [facility] [address] [facility] Vitamin B12 Vitamin B12 2020-0 No 1000ug Common (Cyanocobal (Cyanocobal 9-28 S pirit rivera) rivera) 00:00: - [facility] [address] [facility] Vitamin B12 Vitamin B12 2020-0 No 1000ug Common (Cyanocobal (Cyanocobal 9-28 S pirit rivera) rivera) 00:00: - [facility] [address] [facility] Vitamin B12 Vitamin B12 2020-0 No 1000ug Common (Cyanocobal (Cyanocobal 9-28 S pirit rivera) rivera) 00:00: - [facility] [address] [facility] Vitamin B12 Vitamin B12 2020-0 No 1000ug Common (Cyanocobal (Cyanocobal 9-28 S pirit rivera) rivera) 00:00: - [facility] [address] [facility] Vitamin B12 Vitamin B12 2020-0 No 1000ug Common (Cyanocobal (Cyanocobal 9-28 S pirit rivera) rivera) 00:00: - [facility] [address] [facility] Vitamin B12 Vitamin B12 2020-0 No 1000ug Common (Cyanocobal (Cyanocobal 9-28 S pirit rivera) rivera) 00:00: - [facility] [address] [facility] Vitamin B12 Vitamin B12 2020-0 No 1000ug Common (Cyanocobal (Cyanocobal 9-28 S pirit rivera) rivera) 00:00: - [facility] [address] [facility] Vitamin B12 Vitamin B12 2020-0 No 1000ug Common (Cyanocobal (Cyanocobal 9-28 S pirit rivera) rivera) 00:00: - [facility] [address] [facility] Vitamin B12 Vitamin B12 2020-0 No 1000ug Common (Cyanocobal (Cyanocobal 9-28 S pirit rivera) rivera) 00:00: - [facility] [address] [facility] Vitamin B12 Vitamin B12 2020-0 No 1000ug Common (Cyanocobal (Cyanocobal 9-28 S pirit rivera) rivera) 00:00: - [facility] [address] [facility] Vitamin B12 Vitamin B12 2020-0 No 1000ug Common (Cyanocobal (Cyanocobal 9-28 S pirit rivera) rivera) 00:00: - [facility] [address] [facility] Vitamin B12 Vitamin B12 2020-0 No 1000ug Common (Cyanocobal (Cyanocobal 9-28 S pirit rivera) rivera) 00:00: - [facility] [address] [facility] Vitamin B12 Vitamin B12 2020-0 No 1000ug Common (Cyanocobal (Cyanocobal 9-28 S pirit rivera) rivera) 00:00: - [facility] [address] [facility] Vitamin B12 Vitamin B12 2020-0 No 1000ug Common (Cyanocobal (Cyanocobal 9-28 S pirit rivera) rivera) 00:00: - [facility] [address] [facility] Vitamin B12 Vitamin B12 2020-0 No 1000ug Common (Cyanocobal (Cyanocobal 9-28 S pirit rivera) rivera) 00:00: - [facility] [address] [facility] Vitamin B12 Vitamin B12 2020-0 No 1000ug Common (Cyanocobal (Cyanocobal 9-28 S pirit rivera) rivera) 00:00: - [facility] [address] [facility] Vitamin B12 Vitamin B12 2020-0 No 1000ug Common (Cyanocobal (Cyanocobal 9-28 S pirit rivera) rivera) 00:00: - [facility] [address] [facility] Vitamin B12 Vitamin B12 2020-0 No 1000ug Common (Cyanocobal (Cyanocobal 9-28 S pirit rivera) rivera) 00:00: - [facility] [address] [facility] Vitamin B12 Vitamin B12 2020-0 No 1000ug Common (Cyanocobal (Cyanocobal 9-28 S pirit rivera) rivera) 00:00: - [facility] [address] [facility] Vitamin B12 Vitamin B12 2020-0 No 1000ug Common (Cyanocobal (Cyanocobal 9-28 S pirit rivera) rivera) 00:00: - [facility] [address] [facility] Vitamin B12 Vitamin B12 2020-0 No 1000ug Common (Cyanocobal (Cyanocobal 9-28 S pirit rivera) rivera) 00:00: - [facility] [address] [facility] Vitamin B12 Vitamin B12 2020-0 No 1000ug Common (Cyanocobal (Cyanocobal 9-28 S pirit rivera) rivera) 00:00: - [facility] [address] [facility] Vitamin B12 Vitamin B12 2020-0 No 1000ug Common (Cyanocobal (Cyanocobal 9-28 S pirit rivera) rivera) 00:00: - [facility] [address] [facility] Vitamin B12 Vitamin B12 2020-0 No 1000ug Common (Cyanocobal (Cyanocobal 9-28 S pirit rivera) rivera) 00:00: - [facility] [address] [facility] Vitamin B12 Vitamin B12 2020-0 No 1000ug Common (Cyanocobal (Cyanocobal 9-28 S pirit rivera) rivera) 00:00: - [facility] [address] [facility] Vitamin B12 Vitamin B12 2020-0 No 1000ug Common (Cyanocobal (Cyanocobal 9-28 S pirit rivera) rivera) 00:00: - [facility] [address] [facility] Vitamin B12 Vitamin B12 2020-0 No 1000ug Common (Cyanocobal (Cyanocobal 9-28 S pirit rivera) rivera) 00:00: - [facility] [address] [facility] Vitamin B12 Vitamin B12 2020-0 No 1000ug Common (Cyanocobal (Cyanocobal 9-28 S pirit rivera) rivera) 00:00: - [facility] [address] [facility] Vitamin B12 Vitamin B12 2020-0 No 1000ug Common (Cyanocobal (Cyanocobal 9-28 S pirit rivera) rivera) 00:00: - [facility] [address] [facility] Vitamin B12 Vitamin B12 2020-0 No 1000ug Common (Cyanocobal (Cyanocobal 9-17 S pirit rivera) rivera) 00:00: - [facility] [address] [facility] Vitamin B12 Vitamin B12 2020-0 No 1000ug Common (Cyanocobal (Cyanocobal 9-17 S pirit rivera) rivera) 00:00: - [facility] [address] [facility] Vitamin B12 Vitamin B12 2020-0 No 1000ug Common (Cyanocobal (Cyanocobal 9-17 S pirit rivera) rivera) 00:00: - [facility] [address] [facility] Vitamin B12 Vitamin B12 2020-0 No 1000ug Common (Cyanocobal (Cyanocobal 9-17 S pirit rivera) rivera) 00:00: - [facility] [address] [facility] Vitamin B12 Vitamin B12 2020-0 No 1000ug Common (Cyanocobal (Cyanocobal 9-17 S pirit rivera) rivera) 00:00: - [facility] [address] [facility] Vitamin B12 Vitamin B12 2020-0 No 1000ug Common (Cyanocobal (Cyanocobal 9-17 S pirit rivera) rivera) 00:00: - [facility] [address] [facility] Vitamin B12 Vitamin B12 2020-0 No 1000ug Common (Cyanocobal (Cyanocobal 9-17 S pirit rivera) rivera) 00:00: - [facility] [address] [facility] Vitamin B12 Vitamin B12 2020-0 No 1000ug Common (Cyanocobal (Cyanocobal 9-17 S pirit rivera) rivera) 00:00: - [facility] [address] [facility] Vitamin B12 Vitamin B12 2020-0 No 1000ug Common (Cyanocobal (Cyanocobal 9-17 S pirit rivera) rivera) 00:00: - [facility] [address] [facility] Vitamin B12 Vitamin B12 2020-0 No 1000ug Common (Cyanocobal (Cyanocobal 9-17 S pirit rivera) rivera) 00:00: - [facility] [address] [facility] Vitamin B12 Vitamin B12 2020-0 No 1000ug Common (Cyanocobal (Cyanocobal 9-17 S pirit rivera) rivera) 00:00: - [facility] [address] [facility] Vitamin B12 Vitamin B12 2020-0 No 1000ug Common (Cyanocobal (Cyanocobal 9-17 S pirit rivera) rivera) 00:00: - [facility] [address] [facility] Vitamin B12 Vitamin B12 2020-0 No 1000ug Common (Cyanocobal (Cyanocobal 9-17 S pirit rivera) rivera) 00:00: - [facility] [address] [facility] Vitamin B12 Vitamin B12 2020-0 No 1000ug Common (Cyanocobal (Cyanocobal 9-17 S pirit rivera) rivera) 00:00: - [facility] [address] [facility] Vitamin B12 Vitamin B12 2020-0 No 1000ug Common (Cyanocobal (Cyanocobal 9-17 S pirit rivera) rivera) 00:00: - [facility] [address] [facility] Vitamin B12 Vitamin B12 2020-0 No 1000ug Common (Cyanocobal (Cyanocobal 9-17 S pirit rivera) rivera) 00:00: - [facility] [address] [facility] Vitamin B12 Vitamin B12 2020-0 No 1000ug Common (Cyanocobal (Cyanocobal 9-17 S pirit rivera) rivera) 00:00: - [facility] [address] [facility] Vitamin B12 Vitamin B12 2020-0 No 1000ug Common (Cyanocobal (Cyanocobal 9-17 S pirit rivera) rivera) 00:00: - [facility] [address] [facility] Vitamin B12 Vitamin B12 2020-0 No 1000ug Common (Cyanocobal (Cyanocobal 9-17 S pirit rivera) rivera) 00:00: - [facility] [address] [facility] Vitamin B12 Vitamin B12 2020-0 No 1000ug Common (Cyanocobal (Cyanocobal 9-17 S pirit rivera) rivera) 00:00: - [facility] [address] [facility] Vitamin B12 Vitamin B12 2020-0 No 1000ug Common (Cyanocobal (Cyanocobal 9-17 S pirit rivera) rivera) 00:00: - [facility] [address] [facility] Vitamin B12 Vitamin B12 2020-0 No 1000ug Common (Cyanocobal (Cyanocobal 9-17 S pirit rivera) rivera) 00:00: - [facility] [address] [facility] Vitamin B12 Vitamin B12 2020-0 No 1000ug Common (Cyanocobal (Cyanocobal 9-17 S pirit rivera) rivera) 00:00: - [facility] [address] [facility] Vitamin B12 Vitamin B12 2020-0 No 1000ug Common (Cyanocobal (Cyanocobal 9-17 S pirit rivera) rivera) 00:00: - [facility] [address] [facility] Vitamin B12 Vitamin B12 2020-0 No 1000ug Common (Cyanocobal (Cyanocobal 9-17 S pirit rivera) rivera) 00:00: - [facility] [address] [facility] Vitamin B12 Vitamin B12 2020-0 No 1000ug Common (Cyanocobal (Cyanocobal 9-17 S pirit rivera) rivera) 00:00: - [facility] [address] [facility] Vitamin B12 Vitamin B12 2020-0 No 1000ug Common (Cyanocobal (Cyanocobal 9-17 S pirit rivera) rivera) 00:00: - [facility] [address] [facility] Vitamin B12 Vitamin B12 2020-0 No 1000ug Common (Cyanocobal (Cyanocobal 9-17 S pirit rivera) rivera) 00:00: - [facility] [address] [facility] Vitamin B12 Vitamin B12 2020-0 No 1000ug Common (Cyanocobal (Cyanocobal 9-17 S pirit rivera) rivera) 00:00: - [facility] [address] [facility] Vitamin B12 Vitamin B12 2020-0 No 1000ug Common (Cyanocobal (Cyanocobal 9-17 S pirit rivera) rivera) 00:00: - [facility] [address] [facility] Vitamin B12 Vitamin B12 2020-0 No 1000ug Common (Cyanocobal (Cyanocobal 9-17 S pirit rivera) rivera) 00:00: - [facility] [address] [facility] Vitamin B12 Vitamin B12 2020-0 No 1000ug Common (Cyanocobal (Cyanocobal 9-17 S pirit rivera) rivera) 00:00: - [facility] [address] [facility] Vitamin B12 Vitamin B12 2020-0 No 1000ug Common (Cyanocobal (Cyanocobal 9-17 S pirit rivera) rivera) 00:00: - [facility] [address] [facility] Vitamin B12 Vitamin B12 2020-0 No 1000ug Common (Cyanocobal (Cyanocobal 9-17 S pirit rivera) rivera) 00:00: - [facility] [address] [facility] Vitamin B12 Vitamin B12 2020-0 No 1000ug Common (Cyanocobal (Cyanocobal 9-17 S pirit rivera) rivera) 00:00: - [facility] [address] [facility] Vitamin B12 Vitamin B12 2020-0 No 1000ug Common (Cyanocobal (Cyanocobal 9-17 S pirit rivera) rivera) 00:00: - [facility] [address] [facility] Vitamin B12 Vitamin B12 2020-0 No 1000ug Common (Cyanocobal (Cyanocobal 9-17 S pirit rivera) rivera) 00:00: - [facility] [address] [facility] Vitamin B12 Vitamin B12 2020-0 No 1000ug Common (Cyanocobal (Cyanocobal 8-31 S pirit rivera) rivera) 00:00: - [facility] [address] [facility] Vitamin B12 Vitamin B12 2020-0 No 1000ug Common (Cyanocobal (Cyanocobal 8-31 S pirit rivera) rivera) 00:00: - [facility] [address] [facility] Vitamin B12 Vitamin B12 2020-0 No 1000ug Common (Cyanocobal (Cyanocobal 8-31 S pirit rivera) rivera) 00:00: - [facility] [address] [facility] Vitamin B12 Vitamin B12 2020-0 No 1000ug Common (Cyanocobal (Cyanocobal 8-31 S pirit rivera) rivera) 00:00: - [facility] [address] [facility] Vitamin B12 Vitamin B12 2020-0 No 1000ug Common (Cyanocobal (Cyanocobal 8-31 S pirit rivera) rivera) 00:00: - [facility] [address] [facility] Vitamin B12 Vitamin B12 2020-0 No 1000ug Common (Cyanocobal (Cyanocobal 8-31 S pirit rivera) rivera) 00:00: - [facility] [address] [facility] Vitamin B12 Vitamin B12 2020-0 No 1000ug Common (Cyanocobal (Cyanocobal 8-31 S pirit rivera) rivera) 00:00: - [facility] [address] [facility] Vitamin B12 Vitamin B12 2020-0 No 1000ug Common (Cyanocobal (Cyanocobal 8-31 S pirit rivera) rivera) 00:00: - [facility] [address] [facility] Vitamin B12 Vitamin B12 2020-0 No 1000ug Common (Cyanocobal (Cyanocobal 8-31 S pirit rivera) rivera) 00:00: - [facility] [address] [facility] Vitamin B12 Vitamin B12 2020-0 No 1000ug Common (Cyanocobal (Cyanocobal 8-31 S pirit rivera) rivera) 00:00: - [facility] [address] [facility] Vitamin B12 Vitamin B12 2020-0 No 1000ug Common (Cyanocobal (Cyanocobal 8-31 S pirit rivera) rivera) 00:00: - [facility] [address] [facility] Vitamin B12 Vitamin B12 2020-0 No 1000ug Common (Cyanocobal (Cyanocobal 8-31 S pirit rivera) rivera) 00:00: - [facility] [address] [facility] Vitamin B12 Vitamin B12 2020-0 No 1000ug Common (Cyanocobal (Cyanocobal 8-31 S pirit rivera) rivera) 00:00: - [facility] [address] [facility] Vitamin B12 Vitamin B12 2020-0 No 1000ug Common (Cyanocobal (Cyanocobal 8-31 S pirit rivera) rivera) 00:00: - [facility] [address] [facility] Vitamin B12 Vitamin B12 2020-0 No 1000ug Common (Cyanocobal (Cyanocobal 8-31 S pirit rivera) rivera) 00:00: - [facility] [address] [facility] Vitamin B12 Vitamin B12 2020-0 No 1000ug Common (Cyanocobal (Cyanocobal 8-31 S pirit rivera) rivera) 00:00: - [facility] [address] [facility] Vitamin B12 Vitamin B12 2020-0 No 1000ug Common (Cyanocobal (Cyanocobal 8-31 S pirit rivera) rivera) 00:00: - [facility] [address] [facility] Vitamin B12 Vitamin B12 2020-0 No 1000ug Common (Cyanocobal (Cyanocobal 8-31 S pirit rivera) rivera) 00:00: - [facility] [address] [facility] Vitamin B12 Vitamin B12 2020-0 No 1000ug Common (Cyanocobal (Cyanocobal 8-31 S pirit rivera) rivera) 00:00: - [facility] [address] [facility] Vitamin B12 Vitamin B12 2020-0 No 1000ug Common (Cyanocobal (Cyanocobal 8-31 S pirit rivera) rivera) 00:00: - [facility] [address] [facility] Vitamin B12 Vitamin B12 2020-0 No 1000ug Common (Cyanocobal (Cyanocobal 8-31 S pirit rivera) rivera) 00:00: - [facility] [address] [facility] Vitamin B12 Vitamin B12 2020-0 No 1000ug Common (Cyanocobal (Cyanocobal 8-31 S pirit rievra) rivera) 00:00: - [facility] [address] [facility] Vitamin B12 Vitamin B12 2020-0 No 1000ug Common (Cyanocobal (Cyanocobal 8-31 S pirit rivera) rivera) 00:00: - [facility] [address] [facility] Vitamin B12 Vitamin B12 2020-0 No 1000ug Common (Cyanocobal (Cyanocobal 8-31 S pirit rivera) rivera) 00:00: - [facility] [address] [facility] Vitamin B12 Vitamin B12 2020-0 No 1000ug Common (Cyanocobal (Cyanocobal 8-31 S pirit rivera) rivera) 00:00: - [facility] [address] [facility] Vitamin B12 Vitamin B12 2020-0 No 1000ug Common (Cyanocobal (Cyanocobal 8-31 S pirit rivera) rivera) 00:00: - [facility] [address] [facility] Vitamin B12 Vitamin B12 2020-0 No 1000ug Common (Cyanocobal (Cyanocobal 8-31 S pirit rivera) rivera) 00:00: - [facility] [address] [facility] Vitamin B12 Vitamin B12 2020-0 No 1000ug Common (Cyanocobal (Cyanocobal 8-31 S pirit rivera) rivera) 00:00: - [facility] [address] [facility] Vitamin B12 Vitamin B12 2020-0 No 1000ug Common (Cyanocobal (Cyanocobal 8-31 S pirit rivera) rivera) 00:00: - [facility] [address] [facility] Vitamin B12 Vitamin B12 2020-0 No 1000ug Common (Cyanocobal (Cyanocobal 8-31 S pirit rivera) rivera) 00:00: - [facility] [address] [facility] Vitamin B12 Vitamin B12 2020-0 No 1000ug Common (Cyanocobal (Cyanocobal 8-31 S pirit rivera) rivera) 00:00: - [facility] [address] [facility] Vitamin B12 Vitamin B12 2020-0 No 1000ug Common (Cyanocobal (Cyanocobal 8-31 S pirit rivera) rivera) 00:00: - [facility] [address] [facility] Vitamin B12 Vitamin B12 2020-0 No 1000ug Common (Cyanocobal (Cyanocobal 8-31 S pirit rivera) rivera) 00:00: - [facility] [address] [facility] Vitamin B12 Vitamin B12 2020-0 No 1000ug Common (Cyanocobal (Cyanocobal 8-31 S pirit rivera) rivera) 00:00: - [facility] [address] [facility] Vitamin B12 Vitamin B12 2020-0 No 1000ug Common (Cyanocobal (Cyanocobal 8-31 S pirit rivera) rivera) 00:00: - [facility] [address] [facility] Vitamin B12 Vitamin B12 2020-0 No 1000ug Common (Cyanocobal (Cyanocobal 8-31 S pirit rivera) rivera) 00:00: - [facility] [address] [facility] Vitamin B12 Vitamin B12 2020-0 No 1000ug Common (Cyanocobal (Cyanocobal 8-31 S pirit rivera) rivera) 00:00: - [facility] [address] [facility] Vitamin B12 Vitamin B12 2020-0 No 1000ug Common (Cyanocobal (Cyanocobal 8-17 S pirit rivera) rivera) 00:00: - [facility] [address] [facility] Vitamin B12 Vitamin B12 2020-0 No 1000ug Common (Cyanocobal (Cyanocobal 8-17 S pirit rivera) rivera) 00:00: - [facility] [address] [facility] Vitamin B12 Vitamin B12 2020-0 No 1000ug Common (Cyanocobal (Cyanocobal 8-17 S pirit rivera) rivera) 00:00: - [facility] [address] [facility] Vitamin B12 Vitamin B12 2020-0 No 1000ug Common (Cyanocobal (Cyanocobal 8-17 S pirit rivera) rivera) 00:00: - [facility] [address] [facility] Vitamin B12 Vitamin B12 2020-0 No 1000ug Common (Cyanocobal (Cyanocobal 8-17 S pirit rivera) rivera) 00:00: - [facility] [address] [facility] Vitamin B12 Vitamin B12 2020-0 No 1000ug Common (Cyanocobal (Cyanocobal 8-17 S pirit rivera) rivera) 00:00: - [facility] [address] [facility] Vitamin B12 Vitamin B12 2020-0 No 1000ug Common (Cyanocobal (Cyanocobal 8-17 S pirit rivera) rivera) 00:00: - [facility] [address] [facility] Vitamin B12 Vitamin B12 2020-0 No 1000ug Common (Cyanocobal (Cyanocobal 8-17 S pirit rivera) rivera) 00:00: - [facility] [address] [facility] Vitamin B12 Vitamin B12 2020-0 No 1000ug Common (Cyanocobal (Cyanocobal 8-17 S pirit rivera) rivera) 00:00: - [facility] [address] [facility] Vitamin B12 Vitamin B12 2020-0 No 1000ug Common (Cyanocobal (Cyanocobal 8-17 S pirit rivera) rivera) 00:00: - [facility] [address] [facility] Vitamin B12 Vitamin B12 2020-0 No 1000ug Common (Cyanocobal (Cyanocobal 8-17 S pirit rivera) rivera) 00:00: - [facility] [address] [facility] Vitamin B12 Vitamin B12 2020-0 No 1000ug Common (Cyanocobal (Cyanocobal 8-17 S pirit rivera) rivera) 00:00: - [facility] [address] [facility] Vitamin B12 Vitamin B12 2020-0 No 1000ug Common (Cyanocobal (Cyanocobal 8-17 S pirit rivera) rivera) 00:00: - [facility] [address] [facility] Vitamin B12 Vitamin B12 2020-0 No 1000ug Common (Cyanocobal (Cyanocobal 8-17 S pirit rivera) rivera) 00:00: - [facility] [address] [facility] Vitamin B12 Vitamin B12 2020-0 No 1000ug Common (Cyanocobal (Cyanocobal 8-17 S pirit rivera) rivera) 00:00: - [facility] [address] [facility] Vitamin B12 Vitamin B12 2020-0 No 1000ug Common (Cyanocobal (Cyanocobal 8-17 S pirit rivera) rivera) 00:00: - [facility] [address] [facility] Vitamin B12 Vitamin B12 2020-0 No 1000ug Common (Cyanocobal (Cyanocobal 8-17 S pirit rivera) rivera) 00:00: - [facility] [address] [facility] Vitamin B12 Vitamin B12 2020-0 No 1000ug Common (Cyanocobal (Cyanocobal 8-17 S pirit rivera) rivera) 00:00: - [facility] [address] [facility] Vitamin B12 Vitamin B12 2020-0 No 1000ug Common (Cyanocobal (Cyanocobal 8-17 S pirit rivera) rivera) 00:00: - [facility] [address] [facility] Vitamin B12 Vitamin B12 2020-0 No 1000ug Common (Cyanocobal (Cyanocobal 8-17 S pirit rivera) rivera) 00:00: - [facility] [address] [facility] Vitamin B12 Vitamin B12 2020-0 No 1000ug Common (Cyanocobal (Cyanocobal 8-17 S pirit rivera) rivera) 00:00: - [facility] [address] [facility] Vitamin B12 Vitamin B12 2020-0 No 1000ug Common (Cyanocobal (Cyanocobal 8-17 S pirit rivera) rivera) 00:00: - [facility] [address] [facility] Vitamin B12 Vitamin B12 2020-0 No 1000ug Common (Cyanocobal (Cyanocobal 8-17 S pirit rivera) rivera) 00:00: - [facility] [address] [facility] Vitamin B12 Vitamin B12 2020-0 No 1000ug Common (Cyanocobal (Cyanocobal 8-17 S pirit rivera) rivera) 00:00: - [facility] [address] [facility] Vitamin B12 Vitamin B12 2020-0 No 1000ug Common (Cyanocobal (Cyanocobal 8-17 S pirit rivera) rivera) 00:00: - [facility] [address] [facility] Vitamin B12 Vitamin B12 2020-0 No 1000ug Common (Cyanocobal (Cyanocobal 8-17 S pirit rivera) rivera) 00:00: - [facility] [address] [facility] Vitamin B12 Vitamin B12 2020-0 No 1000ug Common (Cyanocobal (Cyanocobal 8-17 S pirit rivera) rivera) 00:00: - [facility] [address] [facility] Vitamin B12 Vitamin B12 2020-0 No 1000ug Common (Cyanocobal (Cyanocobal 8-17 S pirit rivera) rivera) 00:00: - [facility] [address] [facility] Vitamin B12 Vitamin B12 2020-0 No 1000ug Common (Cyanocobal (Cyanocobal 8-17 S pirit rivera) rivera) 00:00: - [facility] [address] [facility] Vitamin B12 Vitamin B12 2020-0 No 1000ug Common (Cyanocobal (Cyanocobal 8-17 S pirit rivera) rivera) 00:00: - [facility] [address] [facility] Vitamin B12 Vitamin B12 2020-0 No 1000ug Common (Cyanocobal (Cyanocobal 8-17 S pirit rivera) rivera) 00:00: - [facility] [address] [facility] Vitamin B12 Vitamin B12 2020-0 No 1000ug Common (Cyanocobal (Cyanocobal 8-17 S pirit rivera) rivera) 00:00: - [facility] [address] [facility] Vitamin B12 Vitamin B12 2020-0 No 1000ug Common (Cyanocobal (Cyanocobal 8-17 S pirit rivera) rivera) 00:00: - [facility] [address] [facility] Vitamin B12 Vitamin B12 2020-0 No 1000ug Common (Cyanocobal (Cyanocobal 8-17 S pirit rivera) rivera) 00:00: - [facility] [address] [facility] Vitamin B12 Vitamin B12 2020-0 No 1000ug Common (Cyanocobal (Cyanocobal 8-17 S pirit rivera) rivera) 00:00: - [facility] [address] [facility] Vitamin B12 Vitamin B12 2020-0 No 1000ug Common (Cyanocobal (Cyanocobal 8-17 S pirit rivera) rivera) 00:00: - [facility] [address] [facility] [place] Vitamin B12 Vitamin B12 2020-0 No 1000ug Common (Cyanocobal (Cyanocobal 8-17 S pirit rivera) rivera) 00:00: - [facility] [address] [facility] [place] Vitamin B12 Vitamin B12 2020-0 No 1000ug Common (Cyanocobal (Cyanocobal 8-03 S pirit rivera) rivera) 00:00: - [facility] [address] [facility] [place] Vitamin B12 Vitamin B12 2020-0 No 1000ug Common (Cyanocobal (Cyanocobal 8-03 S pirit rivera) rivera) 00:00: - [facility] [address] [facility] [place] Vitamin B12 Vitamin B12 2020-0 No 1000ug Common (Cyanocobal (Cyanocobal 8-03 S pirit rivera) rivera) 00:00: - [facility] [address] [facility] Vitamin B12 Vitamin B12 2020-0 No 1000ug Common (Cyanocobal (Cyanocobal 8-03 S pirit rivera) rivera) 00:00: - [facility] [address] [facility] Vitamin B12 Vitamin B12 2020-0 No 1000ug Common (Cyanocobal (Cyanocobal 8-03 S pirit rivera) rivera) 00:00: - [facility] [address] [facility] Vitamin B12 Vitamin B12 2020-0 No 1000ug Common (Cyanocobal (Cyanocobal 8-03 S pirit rivera) rivera) 00:00: - [facility] [address] [facility] Vitamin B12 Vitamin B12 2020-0 No 1000ug Common (Cyanocobal (Cyanocobal 8-03 S pirit rivera) rivera) 00:00: - [facility] [address] [facility] Vitamin B12 Vitamin B12 2020-0 No 1000ug Common (Cyanocobal (Cyanocobal 8-03 S pirit rivera) rivera) 00:00: - [facility] [address] [facility] Vitamin B12 Vitamin B12 2020-0 No 1000ug Common (Cyanocobal (Cyanocobal 8-03 S pirit rivera) rivera) 00:00: - [facility] [address] [facility] Vitamin B12 Vitamin B12 2020-0 No 1000ug Common (Cyanocobal (Cyanocobal 8-03 S pirit rivera) rivera) 00:00: - [facility] [address] [facility] Vitamin B12 Vitamin B12 2020-0 No 1000ug Common (Cyanocobal (Cyanocobal 8-03 S pirit irvera) rivera) 00:00: - [facility] [address] [facility] Vitamin B12 Vitamin B12 2020-0 No 1000ug Common (Cyanocobal (Cyanocobal 8-03 S pirit rivera) rivera) 00:00: - [facility] [address] [facility] Vitamin B12 Vitamin B12 2020-0 No 1000ug Common (Cyanocobal (Cyanocobal 8-03 S pirit rivera) rivera) 00:00: - [facility] [address] [facility] Vitamin B12 Vitamin B12 2020-0 No 1000ug Common (Cyanocobal (Cyanocobal 8-03 S pirit rivera) rivera) 00:00: - [facility] [address] [facility] Vitamin B12 Vitamin B12 2020-0 No 1000ug Common (Cyanocobal (Cyanocobal 8-03 S pirit rivera) rivera) 00:00: - [facility] [address] [facility] Vitamin B12 Vitamin B12 2020-0 No 1000ug Common (Cyanocobal (Cyanocobal 8-03 S pirit rivera) rivera) 00:00: - [facility] [address] [facility] Vitamin B12 Vitamin B12 2020-0 No 1000ug Common (Cyanocobal (Cyanocobal 8-03 S pirit rivera) rivera) 00:00: - [facility] [address] [facility] Vitamin B12 Vitamin B12 2020-0 No 1000ug Common (Cyanocobal (Cyanocobal 8-03 S pirit rivera) rivera) 00:00: - [facility] [address] [facility] Vitamin B12 Vitamin B12 2020-0 No 1000ug Common (Cyanocobal (Cyanocobal 8-03 S pirit rivera) rivera) 00:00: - [facility] [address] [facility] Vitamin B12 Vitamin B12 2020-0 No 1000ug Common (Cyanocobal (Cyanocobal 8-03 S pirit rivera) rivera) 00:00: - [facility] [address] [facility] Vitamin B12 Vitamin B12 2020-0 No 1000ug Common (Cyanocobal (Cyanocobal 8-03 S pirit rivera) rivera) 00:00: - [facility] [address] [facility] Vitamin B12 Vitamin B12 2020-0 No 1000ug Common (Cyanocobal (Cyanocobal 8-03 S pirit rivera) rivera) 00:00: - [facility] [address] [facility] Vitamin B12 Vitamin B12 2020-0 No 1000ug Common (Cyanocobal (Cyanocobal 8-03 S pirit rivera) rivera) 00:00: - [facility] [address] [facility] Vitamin B12 Vitamin B12 2020-0 No 1000ug Common (Cyanocobal (Cyanocobal 8-03 S pirit rivera) rivera) 00:00: - [facility] [address] [facility] Vitamin B12 Vitamin B12 2020-0 No 1000ug Common (Cyanocobal (Cyanocobal 8-03 S pirit rivera) rivera) 00:00: - [facility] [address] [facility] Vitamin B12 Vitamin B12 2020-0 No 1000ug Common (Cyanocobal (Cyanocobal 8-03 S pirit rivera) rivera) 00:00: - [facility] [address] [facility] Vitamin B12 Vitamin B12 2020-0 No 1000ug Common (Cyanocobal (Cyanocobal 8-03 S pirit rivera) rivera) 00:00: - [facility] [address] [facility] Vitamin B12 Vitamin B12 2020-0 No 1000ug Common (Cyanocobal (Cyanocobal 8-03 S pirit rivera) rivera) 00:00: - [facility] [address] [facility] Vitamin B12 Vitamin B12 2020-0 No 1000ug Common (Cyanocobal (Cyanocobal 8-03 S pirit rivera) rivera) 00:00: - [facility] [address] [facility] Vitamin B12 Vitamin B12 2020-0 No 1000ug Common (Cyanocobal (Cyanocobal 8-03 S pirit rivera) rivera) 00:00: - [facility] [address] [facility] Vitamin B12 Vitamin B12 2020-0 No 1000ug Common (Cyanocobal (Cyanocobal 8-03 S pirit rivera) rivera) 00:00: - [facility] [address] [facility] Vitamin B12 Vitamin B12 2020-0 No 1000ug Common (Cyanocobal (Cyanocobal 8-03 S pirit rivera) rivera) 00:00: - [facility] [address] [facility] Vitamin B12 Vitamin B12 2020-0 No 1000ug Common (Cyanocobal (Cyanocobal 8-03 S pirit rivera) rivera) 00:00: - [facility] [address] [facility] Vitamin B12 Vitamin B12 2020-0 No 1000ug Common (Cyanocobal (Cyanocobal 8-03 S pirit rivera) rivera) 00:00: - [facility] [address] [facility] Vitamin B12 Vitamin B12 2020-0 No 1000ug Common (Cyanocobal (Cyanocobal 8-03 S pirit rivera) rivera) 00:00: - [facility] [address] [facility] Vitamin B12 Vitamin B12 2020-0 No 1000ug Common (Cyanocobal (Cyanocobal 8-03 S pirit rivera) rivera) 00:00: - [facility] [address] [facility] Vitamin B12 Vitamin B12 2020-0 No 1000ug Common (Cyanocobal (Cyanocobal 8-03 S pirit rivera) rivera) 00:00: - [facility] [address] [facility] Vitamin B12 Vitamin B12 2020-0 No 1000ug Common (Cyanocobal (Cyanocobal 7-20 S pirit rivera) rivera) 00:00: - [facility] [address] [facility] Vitamin B12 Vitamin B12 2020-0 No 1000ug Common (Cyanocobal (Cyanocobal 7-20 S pirit rivera) rivera) 00:00: - [facility] [address] [facility] Vitamin B12 Vitamin B12 2020-0 No 1000ug Common (Cyanocobal (Cyanocobal 7-20 S pirit rivera) rivera) 00:00: - [facility] [address] [facility] Vitamin B12 Vitamin B12 2020-0 No 1000ug Common (Cyanocobal (Cyanocobal 7-20 S pirit rivera) rivera) 00:00: - [facility] [address] [facility] Vitamin B12 Vitamin B12 2020-0 No 1000ug Common (Cyanocobal (Cyanocobal 7-20 S pirit rivera) rivera) 00:00: - [facility] [address] [facility] Vitamin B12 Vitamin B12 2020-0 No 1000ug Common (Cyanocobal (Cyanocobal 7-20 S pirit rivera) rivera) 00:00: - [facility] [address] [facility] Vitamin B12 Vitamin B12 2020-0 No 1000ug Common (Cyanocobal (Cyanocobal 7-20 S pirit rivera) rivera) 00:00: - [facility] [address] [facility] Vitamin B12 Vitamin B12 2020-0 No 1000ug Common (Cyanocobal (Cyanocobal 7-20 S pirit rivera) rivera) 00:00: - [facility] [address] [facility] Vitamin B12 Vitamin B12 2020-0 No 1000ug Common (Cyanocobal (Cyanocobal 7-20 S pirit rivera) rivera) 00:00: - [facility] [address] [facility] Vitamin B12 Vitamin B12 2020-0 No 1000ug Common (Cyanocobal (Cyanocobal 7-20 S pirit rivera) rivera) 00:00: - [facility] [address] [facility] Vitamin B12 Vitamin B12 2020-0 No 1000ug Common (Cyanocobal (Cyanocobal 7-20 S pirit rivera) rivera) 00:00: - [facility] [address] [facility] Vitamin B12 Vitamin B12 2020-0 No 1000ug Common (Cyanocobal (Cyanocobal 7-20 S pirit rivera) rivera) 00:00: - [facility] [address] [facility] Vitamin B12 Vitamin B12 2020-0 No 1000ug Common (Cyanocobal (Cyanocobal 7-20 S pirit rivera) rivera) 00:00: - [facility] [address] [facility] Vitamin B12 Vitamin B12 2020-0 No 1000ug Common (Cyanocobal (Cyanocobal 7-20 S pirit rivera) rivera) 00:00: - [facility] [address] [facility] Vitamin B12 Vitamin B12 2020-0 No 1000ug Common (Cyanocobal (Cyanocobal 7-20 S pirit rivera) rivera) 00:00: - [facility] [address] [facility] Vitamin B12 Vitamin B12 2020-0 No 1000ug Common (Cyanocobal (Cyanocobal 7-20 S pirit rivera) rivera) 00:00: - [facility] [address] [facility] Vitamin B12 Vitamin B12 2020-0 No 1000ug Common (Cyanocobal (Cyanocobal 7-20 S pirit rivera) rivera) 00:00: - [facility] [address] [facility] Vitamin B12 Vitamin B12 2020-0 No 1000ug Common (Cyanocobal (Cyanocobal 7-20 S pirit rivera) rivera) 00:00: - [facility] [address] [facility] Vitamin B12 Vitamin B12 2020-0 No 1000ug Common (Cyanocobal (Cyanocobal 7-20 S pirit rivera) rivera) 00:00: - [facility] [address] [facility] Vitamin B12 Vitamin B12 2020-0 No 1000ug Common (Cyanocobal (Cyanocobal 7-20 S pirit rivera) rivera) 00:00: - [facility] [address] [facility] Vitamin B12 Vitamin B12 2020-0 No 1000ug Common (Cyanocobal (Cyanocobal 7-20 S pirit rivera) rivear) 00:00: - [facility] [address] [facility] Vitamin B12 Vitamin B12 2020-0 No 1000ug Common (Cyanocobal (Cyanocobal 7-20 S pirit rivera) rivera) 00:00: - [facility] [address] [facility] Vitamin B12 Vitamin B12 2020-0 No 1000ug Common (Cyanocobal (Cyanocobal 7-20 S pirit rivera) rivera) 00:00: - [facility] [address] [facility] Vitamin B12 Vitamin B12 2020-0 No 1000ug Common (Cyanocobal (Cyanocobal 7-20 S pirit rivera) rivera) 00:00: - [facility] [address] [facility] Vitamin B12 Vitamin B12 2020-0 No 1000ug Common (Cyanocobal (Cyanocobal 7-20 S pirit rivera) rivera) 00:00: - [facility] [address] [facility] Vitamin B12 Vitamin B12 2020-0 No 1000ug Common (Cyanocobal (Cyanocobal 7-20 S pirit rivera) rivera) 00:00: - [facility] [address] [facility] Vitamin B12 Vitamin B12 2020-0 No 1000ug Common (Cyanocobal (Cyanocobal 7-20 S pirit rivera) rivera) 00:00: - [facility] [address] [facility] Vitamin B12 Vitamin B12 2020-0 No 1000ug Common (Cyanocobal (Cyanocobal 7-20 S pirit rivera) rivera) 00:00: - [facility] [address] [facility] Vitamin B12 Vitamin B12 2020-0 No 1000ug Common (Cyanocobal (Cyanocobal 7-20 S pirit rivera) rivera) 00:00: - [facility] [address] [facility] Vitamin B12 Vitamin B12 2020-0 No 1000ug Common (Cyanocobal (Cyanocobal 7-20 S pirit rivera) rivera) 00:00: - [facility] [address] [facility] Vitamin B12 Vitamin B12 2020-0 No 1000ug Common (Cyanocobal (Cyanocobal 7-20 S pirit rivera) rivera) 00:00: - [facility] [address] [facility] Vitamin B12 Vitamin B12 2020-0 No 1000ug Common (Cyanocobal (Cyanocobal 7-20 S pirit rivera) rivera) 00:00: - [facility] [address] [facility] Vitamin B12 Vitamin B12 2020-0 No 1000ug Common (Cyanocobal (Cyanocobal 7-20 S pirit rivera) rivera) 00:00: - [facility] [address] [facility] Vitamin B12 Vitamin B12 2020-0 No 1000ug Common (Cyanocobal (Cyanocobal 7-20 S pirit rivera) rivera) 00:00: - [facility] [address] [facility] Vitamin B12 Vitamin B12 2020-0 No 1000ug Common (Cyanocobal (Cyanocobal 7-20 S pirit rivera) rivera) 00:00: - [facility] [address] [facility] Vitamin B12 Vitamin B12 2020-0 No 1000ug Common (Cyanocobal (Cyanocobal 7-20 S pirit rivera) rivera) 00:00: - [facility] [address] [facility] Vitamin B12 Vitamin B12 2020-0 No 1000ug Common (Cyanocobal (Cyanocobal 7-20 S pirit rivera) rivera) 00:00: - [facility] [address] [facility] Zolpidem Zolpidem 2020-0 Yes Jaziel 1 tablet Common Tartrate Tartrate 7- Felder at bedtime Spirit 00:00: - [facility] [address] [facility] Vitamin B12 Vitamin B12 2020-0 No 1000ug Common (Cyanocobal (Cyanocobal 7-02 S pirit rivera) rivera) 00:00: - [facility] [address] [facility] Vitamin B12 Vitamin B12 2020-0 No 1000ug Common (Cyanocobal (Cyanocobal 7-02 S pirit rivera) rivera) 00:00: - [facility] [address] [facility] Vitamin B12 Vitamin B12 2020-0 No 1000ug Common (Cyanocobal (Cyanocobal 7-02 S pirit rivera) rivera) 00:00: - [facility] [address] [facility] Vitamin B12 Vitamin B12 2020-0 No 1000ug Common (Cyanocobal (Cyanocobal 7-02 S pirit rivera) rivera) 00:00: - [facility] [address] [facility] Vitamin B12 Vitamin B12 2020-0 No 1000ug Common (Cyanocobal (Cyanocobal 7-02 S pirit rivera) rivera) 00:00: - [facility] [address] [facility] Vitamin B12 Vitamin B12 2020-0 No 1000ug Common (Cyanocobal (Cyanocobal 7-02 S pirit rivera) rivera) 00:00: - [facility] [address] [facility] Vitamin B12 Vitamin B12 2020-0 No 1000ug Common (Cyanocobal (Cyanocobal 7-02 S pirit rivera) rivera) 00:00: - [facility] [address] [facility] Vitamin B12 Vitamin B12 2020-0 No 1000ug Common (Cyanocobal (Cyanocobal 7-02 S pirit rivera) rivera) 00:00: - [facility] [address] [facility] Vitamin B12 Vitamin B12 2020-0 No 1000ug Common (Cyanocobal (Cyanocobal 7-02 S pirit rivera) rivera) 00:00: - [facility] [address] [facility] Vitamin B12 Vitamin B12 2020-0 No 1000ug Common (Cyanocobal (Cyanocobal 7-02 S pirit rivera) rivera) 00:00: - [facility] [address] [facility] Vitamin B12 Vitamin B12 2020-0 No 1000ug Common (Cyanocobal (Cyanocobal 7-02 S pirit rivera) rivera) 00:00: - [facility] [address] [facility] Vitamin B12 Vitamin B12 2020-0 No 1000ug Common (Cyanocobal (Cyanocobal 7-02 S pirit rivera) rivera) 00:00: - [facility] [address] [facility] Vitamin B12 Vitamin B12 2020-0 No 1000ug Common (Cyanocobal (Cyanocobal 7-02 S pirit rivera) rivera) 00:00: - [facility] [address] [facility] Vitamin B12 Vitamin B12 2020-0 No 1000ug Common (Cyanocobal (Cyanocobal 7-02 S pirit rivera) rivera) 00:00: - [facility] [address] [facility] Vitamin B12 Vitamin B12 2020-0 No 1000ug Common (Cyanocobal (Cyanocobal 7-02 S pirit rivera) rivera) 00:00: - [facility] [address] [facility] Vitamin B12 Vitamin B12 2020-0 No 1000ug Common (Cyanocobal (Cyanocobal 7-02 S pirit rivera) rivera) 00:00: - [facility] [address] [facility] Vitamin B12 Vitamin B12 2020-0 No 1000ug Common (Cyanocobal (Cyanocobal 7-02 S pirit rivera) rivera) 00:00: - [facility] [address] [facility] Vitamin B12 Vitamin B12 2020-0 No 1000ug Common (Cyanocobal (Cyanocobal 7-02 S pirit rivera) rivera) 00:00: - [facility] [address] [facility] Vitamin B12 Vitamin B12 2020-0 No 1000ug Common (Cyanocobal (Cyanocobal 7-02 S pirit rivera) rivera) 00:00: - [facility] [address] [facility] Vitamin B12 Vitamin B12 2020-0 No 1000ug Common (Cyanocobal (Cyanocobal 7-02 S pirit rivera) rivera) 00:00: - [facility] [address] [facility] Vitamin B12 Vitamin B12 2020-0 No 1000ug Common (Cyanocobal (Cyanocobal 7-02 S pirit rivera) rivera) 00:00: - [facility] [address] [facility] Vitamin B12 Vitamin B12 2020-0 No 1000ug Common (Cyanocobal (Cyanocobal 7-02 S pirit rivera) rivera) 00:00: - [facility] [address] [facility] Vitamin B12 Vitamin B12 2020-0 No 1000ug Common (Cyanocobal (Cyanocobal 7-02 S pirit rivera) rivera) 00:00: - [facility] [address] [facility] Vitamin B12 Vitamin B12 2020-0 No 1000ug Common (Cyanocobal (Cyanocobal 7-02 S pirit rivera) rivera) 00:00: - [facility] [address] [facility] Vitamin B12 Vitamin B12 2020-0 No 1000ug Common (Cyanocobal (Cyanocobal 7-02 S pirit rivera) rivera) 00:00: - [facility] [address] [facility] Vitamin B12 Vitamin B12 2020-0 No 1000ug Common (Cyanocobal (Cyanocobal 7-02 S pirit rivera) rivera) 00:00: - [facility] [address] [facility] Vitamin B12 Vitamin B12 2020-0 No 1000ug Common (Cyanocobal (Cyanocobal 7-02 S pirit rivera) rivera) 00:00: - [facility] [address] [facility] Vitamin B12 Vitamin B12 2020-0 No 1000ug Common (Cyanocobal (Cyanocobal 7-02 S pirit rivera) rivera) 00:00: - [facility] [address] [facility] Vitamin B12 Vitamin B12 2020-0 No 1000ug Common (Cyanocobal (Cyanocobal 7-02 S pirit rivera) rivera) 00:00: - [facility] [address] [facility] Vitamin B12 Vitamin B12 2020-0 No 1000ug Common (Cyanocobal (Cyanocobal 7-02 S pirit rivera) rivera) 00:00: - [facility] [address] [facility] Vitamin B12 Vitamin B12 2020-0 No 1000ug Common (Cyanocobal (Cyanocobal 7-02 S pirit rivera) rivera) 00:00: - [facility] [address] [facility] Vitamin B12 Vitamin B12 2020-0 No 1000ug Common (Cyanocobal (Cyanocobal 7-02 S pirit rivera) rivera) 00:00: - [facility] [address] [facility] Vitamin B12 Vitamin B12 2020-0 No 1000ug Common (Cyanocobal (Cyanocobal 7-02 S pirit rivera) rivera) 00:00: - [facility] [address] [facility] Vitamin B12 Vitamin B12 2020-0 No 1000ug Common (Cyanocobal (Cyanocobal 7-02 S pirit rivera) rivera) 00:00: - [facility] [address] [facility] Vitamin B12 Vitamin B12 2020-0 No 1000ug Common (Cyanocobal (Cyanocobal 7-02 S pirit rivera) rivera) 00:00: - [facility] [address] [facility] Vitamin B12 Vitamin B12 2020-0 No 1000ug Common (Cyanocobal (Cyanocobal 7-02 S pirit rivera) rivera) 00:00: - [facility] [address] [facility] Vitamin B12 Vitamin B12 2020-0 No 1000ug Common (Cyanocobal (Cyanocobal 7-02 S pirit rivera) rivera) 00:00: - [facility] [address] [facility] Kenalog Kenalog 2020-0 No 40mg Common (Triamcinol (Triamcinol 6-18 S pirit one) one) 00:00: - [facility] [address] [facility] Kenalog Kenalog 2020-0 No 40mg Common (Triamcinol (Triamcinol 6-18 S pirit one) one) 00:00: - [facility] [address] [facility] Kenalog Kenalog 2020-0 No 40mg Common (Triamcinol (Triamcinol 6-18 S pirit one) one) 00:00: - [facility] [address] [facility] Kenalog Kenalog 2020-0 No 40mg Common (Triamcinol (Triamcinol 6-18 S pirit one) one) 00:00: - [facility] [address] [facility] Kenalog Kenalog 2020-0 No 40mg Common (Triamcinol (Triamcinol 6-18 S pirit one) one) 00:00: - [facility] [address] [facility] Kenalog Kenalog 2020-0 No 40mg Common (Triamcinol (Triamcinol 6-18 S pirit one) one) 00:00: - [facility] [address] [facility] Kenalog Kenalog 2020-0 No 40mg Common (Triamcinol (Triamcinol 6-18 S pirit one) one) 00:00: - [facility] [address] [facility] Kenalog Kenalog 2020-0 No 40mg Common (Triamcinol (Triamcinol 6-18 S pirit one) one) 00:00: - [facility] [address] [facility] Kenalog Kenalog 2020-0 No 40mg Common (Triamcinol (Triamcinol 6-18 S pirit one) one) 00:00: - [facility] [address] [facility] Kenalog Kenalog 2020-0 No 40mg Common (Triamcinol (Triamcinol 6-18 S pirit one) one) 00:00: - [facility] [address] [facility] Kenalog Kenalog 2020-0 No 40mg Common (Triamcinol (Triamcinol 6-18 S pirit one) one) 00:00: - [facility] [address] [facility] Kenalog Kenalog 2020-0 No 40mg Common (Triamcinol (Triamcinol 6-18 S pirit one) one) 00:00: - [facility] [address] [facility] Kenalog Kenalog 2020-0 No 40mg Common (Triamcinol (Triamcinol 6-18 S pirit one) one) 00:00: - [facility] [address] [facility] Kenalog Kenalog 2020-0 No 40mg Common (Triamcinol (Triamcinol 6-18 S pirit one) one) 00:00: - [facility] [address] [facility] Kenalog Kenalog 2020-0 No 40mg Common (Triamcinol (Triamcinol 6-18 S pirit one) one) 00:00: - [facility] [address] [facility] Kenalog Kenalog 2020-0 No 40mg Common (Triamcinol (Triamcinol 6-18 S pirit one) one) 00:00: - [facility] [address] [facility] Kenalog Kenalog 2020-0 No 40mg Common (Triamcinol (Triamcinol 6-18 S pirit one) one) 00:00: - [facility] [address] [facility] Kenalog Kenalog 2020-0 No 40mg Common (Triamcinol (Triamcinol 6-18 S pirit one) one) 00:00: - [facility] [address] [facility] Kenalog Kenalog 2020-0 No 40mg Common (Triamcinol (Triamcinol 6-18 S pirit one) one) 00:00: - [facility] [address] [facility] Kenalog Kenalog 2020-0 No 40mg Common (Triamcinol (Triamcinol 6-18 S pirit one) one) 00:00: - [facility] [address] [facility] Kenalog Kenalog 2020-0 No 40mg Common (Triamcinol (Triamcinol 6-18 S pirit one) one) 00:00: - [facility] [address] [facility] Kenalog Kenalog 2020-0 No 40mg Common (Triamcinol (Triamcinol 6-18 S pirit one) one) 00:00: - [facility] [address] [facility] Kenalog Kenalog 2020-0 No 40mg Common (Triamcinol (Triamcinol 6-18 S pirit one) one) 00:00: - [facility] [address] [facility] Kenalog Kenalog 2020-0 No 40mg Common (Triamcinol (Triamcinol 6-18 S pirit one) one) 00:00: - [facility] [address] [facility] Kenalog Kenalog 2020-0 No 40mg Common (Triamcinol (Triamcinol 6-18 S pirit one) one) 00:00: - [facility] [address] [facility] Kenalog Kenalog 2020-0 No 40mg Common (Triamcinol (Triamcinol 6-18 S pirit one) one) 00:00: - [facility] [address] [facility] Kenalog Kenalog 2020-0 No 40mg Common (Triamcinol (Triamcinol 6-18 S pirit one) one) 00:00: - [facility] [address] [facility] Kenalog Kenalog 2020-0 No 40mg Common (Triamcinol (Triamcinol 6-18 S pirit one) one) 00:00: - [facility] [address] [facility] Kenalog Kenalog 2020-0 No 40mg Common (Triamcinol (Triamcinol 6-18 S pirit one) one) 00:00: - [facility] [address] [facility] Kenalog Kenalog 2020-0 No 40mg Common (Triamcinol (Triamcinol 6-18 S pirit one) one) 00:00: - [facility] [address] [facility] Kenalog Kenalog 2020-0 No 40mg Common (Triamcinol (Triamcinol 6-18 S pirit one) one) 00:00: - [facility] [address] [facility] Kenalog Kenalog 2020-0 No 40mg Common (Triamcinol (Triamcinol 6-18 S pirit one) one) 00:00: - [facility] [address] [facility] Kenalog Kenalog 2020-0 No 40mg Common (Triamcinol (Triamcinol 6-18 S pirit one) one) 00:00: - [facility] [address] [facility] Kenalog Kenalog 2020-0 No 40mg Common (Triamcinol (Triamcinol 6-18 S pirit one) one) 00:00: - [facility] [address] [facility] Kenalog Kenalog 2020-0 No 40mg Common (Triamcinol (Triamcinol 6-18 S pirit one) one) 00:00: - [facility] [address] [facility] Kenalog Kenalog 2020-0 No 40mg Common (Triamcinol (Triamcinol 6-18 S pirit one) one) 00:00: - [facility] [address] [facility] Kenalog Kenalog 2020-0 No 40mg Common (Triamcinol (Triamcinol 6-18 S pirit one) one) 00:00: - [facility] [address] [facility] Vitamin B12 Vitamin B12 2020-0 No 1000ug Common (Cyanocobal (Cyanocobal 3-10 S pirit rivera) rivera) 00:00: - [facility] [address] [facility] Vitamin B12 Vitamin B12 2020-0 No 1000ug Common (Cyanocobal (Cyanocobal 3-10 S pirit rivera) rivera) 00:00: - [facility] [address] [facility] Vitamin B12 Vitamin B12 2020-0 No 1000ug Common (Cyanocobal (Cyanocobal 3-10 S pirit rivera) rivera) 00:00: - [facility] [address] [facility] Vitamin B12 Vitamin B12 2020-0 No 1000ug Common (Cyanocobal (Cyanocobal 3-10 S pirit rivera) rivera) 00:00: - [facility] [address] [facility] Vitamin B12 Vitamin B12 2020-0 No 1000ug Common (Cyanocobal (Cyanocobal 3-10 S pirit rivera) rivera) 00:00: - [facility] [address] [facility] Vitamin B12 Vitamin B12 2020-0 No 1000ug Common (Cyanocobal (Cyanocobal 3-10 S pirit rivera) rivera) 00:00: - [facility] [address] [facility] Vitamin B12 Vitamin B12 2020-0 No 1000ug Common (Cyanocobal (Cyanocobal 3-10 S pirit rivera) rivera) 00:00: - [facility] [address] [facility] Vitamin B12 Vitamin B12 2020-0 No 1000ug Common (Cyanocobal (Cyanocobal 3-10 S pirit rivera) rivera) 00:00: - [facility] [address] [facility] Vitamin B12 Vitamin B12 2020-0 No 1000ug Common (Cyanocobal (Cyanocobal 3-10 S pirit rivera) rivera) 00:00: - [facility] [address] [facility] Vitamin B12 Vitamin B12 2020-0 No 1000ug Common (Cyanocobal (Cyanocobal 3-10 S pirit rivera) rivera) 00:00: - [facility] [address] [facility] Vitamin B12 Vitamin B12 2020-0 No 1000ug Common (Cyanocobal (Cyanocobal 3-10 S pirit rivera) rivera) 00:00: - [facility] [address] [facility] Vitamin B12 Vitamin B12 2020-0 No 1000ug Common (Cyanocobal (Cyanocobal 3-10 S pirit rivera) rivera) 00:00: - [facility] [address] [facility] Vitamin B12 Vitamin B12 2020-0 No 1000ug Common (Cyanocobal (Cyanocobal 3-10 S pirit rivera) rivera) 00:00: - [facility] [address] [facility] Vitamin B12 Vitamin B12 2020-0 No 1000ug Common (Cyanocobal (Cyanocobal 3-10 S pirit rivera) rivera) 00:00: - [facility] [address] [facility] Vitamin B12 Vitamin B12 2020-0 No 1000ug Common (Cyanocobal (Cyanocobal 3-10 S pirit rivera) rivera) 00:00: - [facility] [address] [facility] Vitamin B12 Vitamin B12 2020-0 No 1000ug Common (Cyanocobal (Cyanocobal 3-10 S pirit rivera) rivera) 00:00: - [facility] [address] [facility] Vitamin B12 Vitamin B12 2020-0 No 1000ug Common (Cyanocobal (Cyanocobal 3-10 S pirit rivera) rivera) 00:00: - [facility] [address] [facility] Vitamin B12 Vitamin B12 2020-0 No 1000ug Common (Cyanocobal (Cyanocobal 3-10 S pirit rivera) rivera) 00:00: - [facility] [address] [facility] Vitamin B12 Vitamin B12 2020-0 No 1000ug Common (Cyanocobal (Cyanocobal 3-10 S pirit rivera) rivera) 00:00: - [facility] [address] [facility] Vitamin B12 Vitamin B12 2020-0 No 1000ug Common (Cyanocobal (Cyanocobal 3-10 S pirit rivera) rivera) 00:00: - [facility] [address] [facility] Vitamin B12 Vitamin B12 2020-0 No 1000ug Common (Cyanocobal (Cyanocobal 3-10 S pirit rivera) rivera) 00:00: - [facility] [address] [facility] Vitamin B12 Vitamin B12 2020-0 No 1000ug Common (Cyanocobal (Cyanocobal 3-10 S pirit rivera) rivera) 00:00: - [facility] [address] [facility] Vitamin B12 Vitamin B12 2020-0 No 1000ug Common (Cyanocobal (Cyanocobal 3-10 S pirit rivera) rivera) 00:00: - [facility] [address] [facility] Vitamin B12 Vitamin B12 2020-0 No 1000ug Common (Cyanocobal (Cyanocobal 3-10 S pirit rivera) rivera) 00:00: - [facility] [address] [facility] Vitamin B12 Vitamin B12 2020-0 No 1000ug Common (Cyanocobal (Cyanocobal 3-10 S pirit rivera) rivera) 00:00: - [facility] [address] [facility] Vitamin B12 Vitamin B12 2020-0 No 1000ug Common (Cyanocobal (Cyanocobal 3-10 S pirit rivera) rivera) 00:00: - [facility] [address] [facility] Vitamin B12 Vitamin B12 2020-0 No 1000ug Common (Cyanocobal (Cyanocobal 3-10 S pirit rivera) rivera) 00:00: - [facility] [address] [facility] Vitamin B12 Vitamin B12 2020-0 No 1000ug Common (Cyanocobal (Cyanocobal 3-10 S pirit rivera) rivera) 00:00: - [facility] [address] [facility] Vitamin B12 Vitamin B12 2020-0 No 1000ug Common (Cyanocobal (Cyanocobal 3-10 S pirit rivera) rivera) 00:00: - [facility] [address] [facility] Vitamin B12 Vitamin B12 2020-0 No 1000ug Common (Cyanocobal (Cyanocobal 3-10 S pirit rivera) rivera) 00:00: - [facility] [address] [facility] Vitamin B12 Vitamin B12 2020-0 No 1000ug Common (Cyanocobal (Cyanocobal 3-10 S pirit rivera) rivera) 00:00: - [facility] [address] [facility] Vitamin B12 Vitamin B12 2020-0 No 1000ug Common (Cyanocobal (Cyanocobal 3-10 S pirit rivera) rivera) 00:00: - [facility] [address] [facility] Vitamin B12 Vitamin B12 2020-0 No 1000ug Common (Cyanocobal (Cyanocobal 3-10 S pirit rivera) rivera) 00:00: - [facility] [address] [facility] Vitamin B12 Vitamin B12 2020-0 No 1000ug Common (Cyanocobal (Cyanocobal 3-10 S pirit rivera) rivera) 00:00: - [facility] [address] [facility] Vitamin B12 Vitamin B12 2020-0 No 1000ug Common (Cyanocobal (Cyanocobal 3-10 S pirit rivera) rivera) 00:00: - [facility] [address] [facility] Vitamin B12 Vitamin B12 2020-0 No 1000ug Common (Cyanocobal (Cyanocobal 3-10 S pirit rivera) rivera) 00:00: - [facility] [address] [facility] Vitamin B12 Vitamin B12 2020-0 No 1000ug Common (Cyanocobal (Cyanocobal 3-10 S pirit rivera) rivera) 00:00: - [facility] [address] [facility] Vitamin B12 Vitamin B12 2020-0 No 1000ug Common (Cyanocobal (Cyanocobal 2-18 S pirit rivera) rivera) 00:00: - [facility] [address] [facility] Vitamin B12 Vitamin B12 2020-0 No 1000ug Common (Cyanocobal (Cyanocobal 2-18 S pirit rivera) rivera) 00:00: - [facility] [address] [facility] Vitamin B12 Vitamin B12 2020-0 No 1000ug Common (Cyanocobal (Cyanocobal 2-18 S pirit rivera) rivera) 00:00: - [facility] [address] [facility] Vitamin B12 Vitamin B12 2020-0 No 1000ug Common (Cyanocobal (Cyanocobal 2-18 S pirit rivera) rivera) 00:00: - [facility] [address] [facility] Vitamin B12 Vitamin B12 2020-0 No 1000ug Common (Cyanocobal (Cyanocobal 2-18 S pirit rivera) rivera) 00:00: - [facility] [address] [facility] Vitamin B12 Vitamin B12 2020-0 No 1000ug Common (Cyanocobal (Cyanocobal 2-18 S pirit rivera) rivera) 00:00: - [facility] [address] [facility] Vitamin B12 Vitamin B12 2020-0 No 1000ug Common (Cyanocobal (Cyanocobal 2-18 S pirit rivera) rivera) 00:00: - [facility] [address] [facility] Vitamin B12 Vitamin B12 2020-0 No 1000ug Common (Cyanocobal (Cyanocobal 2-18 S pirit rivera) rivera) 00:00: - [facility] [address] [facility] Vitamin B12 Vitamin B12 2020-0 No 1000ug Common (Cyanocobal (Cyanocobal 2-18 S pirit rivera) rivera) 00:00: - [facility] [address] [facility] Vitamin B12 Vitamin B12 2020-0 No 1000ug Common (Cyanocobal (Cyanocobal 2-18 S pirit rivera) rivera) 00:00: - [facility] [address] [facility] Vitamin B12 Vitamin B12 2020-0 No 1000ug Common (Cyanocobal (Cyanocobal 2-18 S pirit rivera) rivera) 00:00: - [facility] [address] [facility] Vitamin B12 Vitamin B12 2020-0 No 1000ug Common (Cyanocobal (Cyanocobal 2-18 S pirit rivera) rivera) 00:00: - [facility] [address] [facility] Vitamin B12 Vitamin B12 2020-0 No 1000ug Common (Cyanocobal (Cyanocobal 2-18 S pirit rivera) rivera) 00:00: - [facility] [address] [facility] Vitamin B12 Vitamin B12 2020-0 No 1000ug Common (Cyanocobal (Cyanocobal 2-18 S pirit rivera) rivera) 00:00: - [facility] [address] [facility] Vitamin B12 Vitamin B12 2020-0 No 1000ug Common (Cyanocobal (Cyanocobal 2-18 S pirit rivera) rivera) 00:00: - [facility] [address] [facility] Vitamin B12 Vitamin B12 2020-0 No 1000ug Common (Cyanocobal (Cyanocobal 2-18 S pirit rivera) rivera) 00:00: - [facility] [address] [facility] Vitamin B12 Vitamin B12 2020-0 No 1000ug Common (Cyanocobal (Cyanocobal 2-18 S pirit rivera) rivera) 00:00: - [facility] [address] [facility] Vitamin B12 Vitamin B12 2020-0 No 1000ug Common (Cyanocobal (Cyanocobal 2-18 S pirit rivera) rivera) 00:00: - [facility] [address] [facility] Vitamin B12 Vitamin B12 2020-0 No 1000ug Common (Cyanocobal (Cyanocobal 2-18 S pirit rivera) rivera) 00:00: - [facility] [address] [facility] Vitamin B12 Vitamin B12 2020-0 No 1000ug Common (Cyanocobal (Cyanocobal 2-18 S pirit rivera) rivera) 00:00: - [facility] [address] [facility] Vitamin B12 Vitamin B12 2020-0 No 1000ug Common (Cyanocobal (Cyanocobal 2-18 S pirit rivera) rivera) 00:00: - [facility] [address] [facility] Vitamin B12 Vitamin B12 2020-0 No 1000ug Common (Cyanocobal (Cyanocobal 2-18 S pirit rivera) rivera) 00:00: - [facility] [address] [facility] Vitamin B12 Vitamin B12 2020-0 No 1000ug Common (Cyanocobal (Cyanocobal 2-18 S pirit rivera) rivera) 00:00: - [facility] [address] [facility] Vitamin B12 Vitamin B12 2020-0 No 1000ug Common (Cyanocobal (Cyanocobal 2-18 S pirit rivera) rivera) 00:00: - [facility] [address] [facility] Vitamin B12 Vitamin B12 2020-0 No 1000ug Common (Cyanocobal (Cyanocobal 2-18 S pirit rivera) rivera) 00:00: - [facility] [address] [facility] Vitamin B12 Vitamin B12 2020-0 No 1000ug Common (Cyanocobal (Cyanocobal 2-18 S pirit rivera) rivera) 00:00: - [facility] [address] [facility] Vitamin B12 Vitamin B12 2020-0 No 1000ug Common (Cyanocobal (Cyanocobal 2-18 S pirit rivera) rivera) 00:00: - [facility] [address] [facility] Vitamin B12 Vitamin B12 2020-0 No 1000ug Common (Cyanocobal (Cyanocobal 2-18 S pirit rivera) rivera) 00:00: - [facility] [address] [facility] Vitamin B12 Vitamin B12 2020-0 No 1000ug Common (Cyanocobal (Cyanocobal 2-18 S pirit rivera) rivera) 00:00: - [facility] [address] [facility] Vitamin B12 Vitamin B12 2020-0 No 1000ug Common (Cyanocobal (Cyanocobal 2-18 S pirit rivera) rivera) 00:00: - [facility] [address] [facility] Vitamin B12 Vitamin B12 2020-0 No 1000ug Common (Cyanocobal (Cyanocobal 2-18 S pirit rivera) rivera) 00:00: - [facility] [address] [facility] Vitamin B12 Vitamin B12 2020-0 No 1000ug Common (Cyanocobal (Cyanocobal 2-18 S pirit rivera) rivera) 00:00: - [facility] [address] [facility] Vitamin B12 Vitamin B12 2020-0 No 1000ug Common (Cyanocobal (Cyanocobal 2-18 S pirit rivera) rivera) 00:00: - [facility] [address] [facility] Vitamin B12 Vitamin B12 2020-0 No 1000ug Common (Cyanocobal (Cyanocobal 2-18 S pirit rivera) rivera) 00:00: - [facility] [address] [facility] Vitamin B12 Vitamin B12 2020-0 No 1000ug Common (Cyanocobal (Cyanocobal 2-18 S pirit rivera) rivera) 00:00: - [facility] [address] [facility] Vitamin B12 Vitamin B12 2020-0 No 1000ug Common (Cyanocobal (Cyanocobal 2-18 S pirit rivera) rivera) 00:00: - [facility] [address] [facility] Vitamin B12 Vitamin B12 2020-0 No 1000ug Common (Cyanocobal (Cyanocobal 2-18 S pirit rivera) rivera) 00:00: - [facility] [address] [facility] Vitamin B12 Vitamin B12 2020-0 No 1000ug Common (Cyanocobal (Cyanocobal 1-08 S pirit rivera) rivera) 00:00: - [facility] [address] [facility] Vitamin B12 Vitamin B12 2020-0 No 1000ug Common (Cyanocobal (Cyanocobal 1-08 S pirit rivera) rivera) 00:00: - [facility] [address] [facility] Vitamin B12 Vitamin B12 2020-0 No 1000ug Common (Cyanocobal (Cyanocobal 1-08 S pirit rivera) rivera) 00:00: - [facility] [address] [facility] Vitamin B12 Vitamin B12 2020-0 No 1000ug Common (Cyanocobal (Cyanocobal 1-08 S pirit rivera) rivera) 00:00: - [facility] [address] [facility] Vitamin B12 Vitamin B12 2020-0 No 1000ug Common (Cyanocobal (Cyanocobal 1-08 S pirit rivera) rivera) 00:00: - [facility] [address] [facility] Vitamin B12 Vitamin B12 2020-0 No 1000ug Common (Cyanocobal (Cyanocobal 1-08 S pirit rivera) rivera) 00:00: - [facility] [address] [facility] Vitamin B12 Vitamin B12 2020-0 No 1000ug Common (Cyanocobal (Cyanocobal 1-08 S pirit rivera) rivera) 00:00: - [facility] [address] [facility] Vitamin B12 Vitamin B12 2020-0 No 1000ug Common (Cyanocobal (Cyanocobal 1-08 S pirit rivera) rivera) 00:00: - [facility] [address] [facility] Vitamin B12 Vitamin B12 2020-0 No 1000ug Common (Cyanocobal (Cyanocobal 1-08 S pirit rivera) rivera) 00:00: - [facility] [address] [facility] Vitamin B12 Vitamin B12 2020-0 No 1000ug Common (Cyanocobal (Cyanocobal 1-08 S pirit rivera) rivera) 00:00: - [facility] [address] [facility] Vitamin B12 Vitamin B12 2020-0 No 1000ug Common (Cyanocobal (Cyanocobal 1-08 S pirit rivera) rivera) 00:00: - [facility] [address] [facility] Vitamin B12 Vitamin B12 2020-0 No 1000ug Common (Cyanocobal (Cyanocobal 1-08 S pirit rivera) rivera) 00:00: - [facility] [address] [facility] Vitamin B12 Vitamin B12 2020-0 No 1000ug Common (Cyanocobal (Cyanocobal 1-08 S pirit rivera) rivera) 00:00: - [facility] [address] [facility] Vitamin B12 Vitamin B12 2020-0 No 1000ug Common (Cyanocobal (Cyanocobal 1-08 S pirit rivera) rivera) 00:00: - [facility] [address] [facility] Vitamin B12 Vitamin B12 2020-0 No 1000ug Common (Cyanocobal (Cyanocobal 1-08 S pirit rivera) rivera) 00:00: - [facility] [address] [facility] Vitamin B12 Vitamin B12 2020-0 No 1000ug Common (Cyanocobal (Cyanocobal 1-08 S pirit rivera) rivera) 00:00: - [facility] [address] [facility] Vitamin B12 Vitamin B12 2020-0 No 1000ug Common (Cyanocobal (Cyanocobal 1-08 S pirit rivera) rivera) 00:00: - [facility] [address] [facility] Vitamin B12 Vitamin B12 2020-0 No 1000ug Common (Cyanocobal (Cyanocobal 1-08 S pirit rivera) rivera) 00:00: - [facility] [address] [facility] Vitamin B12 Vitamin B12 2020-0 No 1000ug Common (Cyanocobal (Cyanocobal 1-08 S pirit rivera) rivera) 00:00: - [facility] [address] [facility] Vitamin B12 Vitamin B12 2020-0 No 1000ug Common (Cyanocobal (Cyanocobal 1-08 S pirit rivera) rivera) 00:00: - [facility] [address] [facility] Vitamin B12 Vitamin B12 2020-0 No 1000ug Common (Cyanocobal (Cyanocobal 1-08 S pirit rivera) rivera) 00:00: - [facility] [address] [facility] Vitamin B12 Vitamin B12 2020-0 No 1000ug Common (Cyanocobal (Cyanocobal 1-08 S pirit rivera) rivera) 00:00: - [facility] [address] [facility] Vitamin B12 Vitamin B12 2020-0 No 1000ug Common (Cyanocobal (Cyanocobal 1-08 S pirit rivera) rivera) 00:00: - [facility] [address] [facility] Vitamin B12 Vitamin B12 2020-0 No 1000ug Common (Cyanocobal (Cyanocobal 1-08 S pirit rivera) rivera) 00:00: - [facility] [address] [facility] Vitamin B12 Vitamin B12 2020-0 No 1000ug Common (Cyanocobal (Cyanocobal 1-08 S pirit rivera) rivera) 00:00: - [facility] [address] [facility] Vitamin B12 Vitamin B12 2020-0 No 1000ug Common (Cyanocobal (Cyanocobal 1-08 S pirit rivera) rivera) 00:00: - [facility] [address] [facility] Vitamin B12 Vitamin B12 2020-0 No 1000ug Common (Cyanocobal (Cyanocobal 1-08 S pirit rivera) rivera) 00:00: - [facility] [address] [facility] Vitamin B12 Vitamin B12 2020-0 No 1000ug Common (Cyanocobal (Cyanocobal 1-08 S pirit rivera) rivera) 00:00: - [facility] [address] [facility] Vitamin B12 Vitamin B12 2020-0 No 1000ug Common (Cyanocobal (Cyanocobal 1-08 S pirit rivera) rivera) 00:00: - [facility] [address] [facility] Vitamin B12 Vitamin B12 2020-0 No 1000ug Common (Cyanocobal (Cyanocobal 1-08 S pirit rivera) rivera) 00:00: - [facility] [address] [facility] Vitamin B12 Vitamin B12 2020-0 No 1000ug Common (Cyanocobal (Cyanocobal 1-08 S pirit rivera) rivera) 00:00: - [facility] [address] [facility] Vitamin B12 Vitamin B12 2020-0 No 1000ug Common (Cyanocobal (Cyanocobal 1-08 S pirit rivera) rivera) 00:00: - [facility] [address] [facility] Vitamin B12 Vitamin B12 2020-0 No 1000ug Common (Cyanocobal (Cyanocobal 1-08 S pirit rivera) rivera) 00:00: - [facility] [address] [facility] Vitamin B12 Vitamin B12 2020-0 No 1000ug Common (Cyanocobal (Cyanocobal 1-08 S pirit rivera) rivera) 00:00: - [facility] [address] [facility] Vitamin B12 Vitamin B12 2020-0 No 1000ug Common (Cyanocobal (Cyanocobal 1-08 S pirit rivera) rivera) 00:00: - [facility] [address] [facility] Vitamin B12 Vitamin B12 2020-0 No 1000ug Common (Cyanocobal (Cyanocobal 1-08 S pirit rivera) rivera) 00:00: - [facility] [address] [facility] Vitamin B12 Vitamin B12 2020-0 No 1000ug Common (Cyanocobal (Cyanocobal 1-08 S pirit rivera) rivera) 00:00: - [facility] [address] [facility] Kenalog Kenalog 2019-1 No 1mL Common (Triamcinol (Triamcinol 0-15 S pirit one) one) 00:00: - [facility] [address] [facility] LIDOCAINE LIDOCAINE 2019-1 No 5mL Com mon HCL 10MG/ML HCL 10MG/ML 0-15 S pirit 00:00: - [facility] [address] [facility] Kenalog Kenalog 2019-1 No 1mL Common (Triamcinol (Triamcinol 0-15 S pirit one) one) 00:00: - [facility] [address] [facility] LIDOCAINE LIDOCAINE 2019-1 No 5mL Com mon HCL 10MG/ML HCL 10MG/ML 0-15 S pirit 00:00: - [facility] [address] [facility] Kenalog Kenalog 2019-1 No 1mL Common (Triamcinol (Triamcinol 0-15 S pirit one) one) 00:00: - [facility] [address] [facility] LIDOCAINE LIDOCAINE 2019-1 No 5mL Com mon HCL 10MG/ML HCL 10MG/ML 0-15 S pirit 00:00: - [facility] [address] [facility] Kenalog Kenalog 2019-1 No 1mL Common (Triamcinol (Triamcinol 0-15 S pirit one) one) 00:00: - [facility] [address] [facility] LIDOCAINE LIDOCAINE 2019-1 No 5mL Com mon HCL 10MG/ML HCL 10MG/ML 0-15 S pirit 00:00: - [facility] [address] [facility] Kenalog Kenalog 2019-1 No 1mL Common (Triamcinol (Triamcinol 0-15 S pirit one) one) 00:00: - [facility] [address] [facility] LIDOCAINE LIDOCAINE 2019-1 No 5mL Com mon HCL 10MG/ML HCL 10MG/ML 0-15 S pirit 00:00: - [facility] [address] [facility] Kenalog Kenalog 2019-1 No 1mL Common (Triamcinol (Triamcinol 0-15 S pirit one) one) 00:00: - [facility] [address] [facility] LIDOCAINE LIDOCAINE 2019-1 No 5mL Com mon HCL 10MG/ML HCL 10MG/ML 0-15 S pirit 00:00: - [facility] [address] [facility] Kenalog Kenalog 2019-1 No 1mL Common (Triamcinol (Triamcinol 0-15 S pirit one) one) 00:00: - [facility] [address] [facility] LIDOCAINE LIDOCAINE 2019-1 No 5mL Com mon HCL 10MG/ML HCL 10MG/ML 0-15 S pirit 00:00: - [facility] [address] [facility] Kenalog Kenalog 2019-1 No 1mL Common (Triamcinol (Triamcinol 0-15 S pirit one) one) 00:00: - [facility] [address] [facility] LIDOCAINE LIDOCAINE 2019-1 No 5mL Com mon HCL 10MG/ML HCL 10MG/ML 0-15 S pirit 00:00: - [facility] [address] [facility] Kenalog Kenalog 2019-1 No 1mL Common (Triamcinol (Triamcinol 0-15 S pirit one) one) 00:00: - [facility] [address] [facility] LIDOCAINE LIDOCAINE 2019-1 No 5mL Com mon HCL 10MG/ML HCL 10MG/ML 0-15 S pirit 00:00: - [facility] [address] [facility] Kenalog Kenalog 2019-1 No 1mL Common (Triamcinol (Triamcinol 0-15 S pirit one) one) 00:00: - [facility] [address] [facility] LIDOCAINE LIDOCAINE 2019-1 No 5mL Com mon HCL 10MG/ML HCL 10MG/ML 0-15 S pirit 00:00: - [facility] [address] [facility] LIDOCAINE LIDOCAINE 2019-1 No 5mL Com mon HCL 10MG/ML HCL 10MG/ML 0-15 S pirit 00:00: - [facility] [address] [facility] Kenalog Kenalog 2019-1 No 1mL Common (Triamcinol (Triamcinol 0-15 S pirit one) one) 00:00: - [facility] [address] [facility] LIDOCAINE LIDOCAINE 2019-1 No 5mL Com mon HCL 10MG/ML HCL 10MG/ML 0-15 S pirit 00:00: - [facility] [address] [facility] Kenalog Kenalog 2019-1 No 1mL Common (Triamcinol (Triamcinol 0-15 S pirit one) one) 00:00: - [facility] [address] [facility] LIDOCAINE LIDOCAINE 2019-1 No 5mL Com mon HCL 10MG/ML HCL 10MG/ML 0-15 S pirit 00:00: - [facility] [address] [facility] Kenalog Kenalog 2019-1 No 1mL Common (Triamcinol (Triamcinol 0-15 S pirit one) one) 00:00: - [facility] [address] [facility] LIDOCAINE LIDOCAINE 2019-1 No 5mL Com mon HCL 10MG/ML HCL 10MG/ML 0-15 S pirit 00:00: - [facility] [address] [facility] LIDOCAINE LIDOCAINE 2019-1 No 5mL Com mon HCL 10MG/ML HCL 10MG/ML 0-15 S pirit 00:00: - [facility] Kenalog Kenalog 2019-1 No 1mL Common (Triamcinol (Triamcinol 0-15 S pirit one) one) 00:00: - [facility] LIDOCAINE LIDOCAINE 2019-1 No 5mL Com mon HCL 10MG/ML HCL 10MG/ML 0-15 S pirit 00:00: - [facility] [address] [facility] Kenalog Kenalog 2019-1 No 1mL Common (Triamcinol (Triamcinol 0-15 S pirit one) one) 00:00: - [facility] [address] [facility] LIDOCAINE LIDOCAINE 2019-1 No 5mL Com mon HCL 10MG/ML HCL 10MG/ML 0-15 S pirit 00:00: - [facility] Kenalog Kenalog 2019-1 No 1mL Common (Triamcinol (Triamcinol 0-15 S pirit one) one) 00:00: - [facility] [address] [facility] Kenalog Kenalog 2019-1 No 1mL Common (Triamcinol (Triamcinol 0-15 S pirit one) one) 00:00: - [facility] [address] [facility] LIDOCAINE LIDOCAINE 2019-1 No 5mL Com mon HCL 10MG/ML HCL 10MG/ML 0-15 S pirit 00:00: - [facility] [address] [facility] Kenalog Kenalog 2019-1 No 1mL Common (Triamcinol (Triamcinol 0-15 S pirit one) one) 00:00: - [facility] [address] [facility] LIDOCAINE LIDOCAINE 2019-1 No 5mL Com mon HCL 10MG/ML HCL 10MG/ML 0-15 S pirit 00:00: - [facility] [address] [facility] Kenalog Kenalog 2019-1 No 1mL Common (Triamcinol (Triamcinol 0-15 S pirit one) one) 00:00: - [facility] [address] [facility] LIDOCAINE LIDOCAINE 2019-1 No 5mL Com mon HCL 10MG/ML HCL 10MG/ML 0-15 S pirit 00:00: - [facility] [address] [facility] Kenalog Kenalog 2019-1 No 1mL Common (Triamcinol (Triamcinol 0-15 S pirit one) one) 00:00: - [facility] [address] [facility] LIDOCAINE LIDOCAINE 2019-1 No 5mL Com mon HCL 10MG/ML HCL 10MG/ML 0-15 S pirit 00:00: - [facility] [address] [facility] Kenalog Kenalog 2019-1 No 1mL Common (Triamcinol (Triamcinol 0-15 S pirit one) one) 00:00: - [facility] [address] [facility] LIDOCAINE LIDOCAINE 2019-1 No 5mL Com mon HCL 10MG/ML HCL 10MG/ML 0-15 S pirit 00:00: - [facility] [address] [facility] Kenalog Kenalog 2019-1 No 1mL Common (Triamcinol (Triamcinol 0-15 S pirit one) one) 00:00: - [facility] [address] [facility] LIDOCAINE LIDOCAINE 2019-1 No 5mL Com mon HCL 10MG/ML HCL 10MG/ML 0-15 S pirit 00:00: - [facility] [address] [facility] Kenalog Kenalog 2019-1 No 1mL Common (Triamcinol (Triamcinol 0-15 S pirit one) one) 00:00: - [facility] [address] [facility] LIDOCAINE LIDOCAINE 2019-1 No 5mL Com mon HCL 10MG/ML HCL 10MG/ML 0-15 S pirit 00:00: - [facility] [address] [facility] Kenalog Kenalog 2019-1 No 1mL Common (Triamcinol (Triamcinol 0-15 S pirit one) one) 00:00: - [facility] [address] [facility] LIDOCAINE LIDOCAINE 2019-1 No 5mL Com mon HCL 10MG/ML HCL 10MG/ML 0-15 S pirit 00:00: - [facility] [address] [facility] Kenalog Kenalog 2019-1 No 1mL Common (Triamcinol (Triamcinol 0-15 S pirit one) one) 00:00: - [facility] [address] [facility] LIDOCAINE LIDOCAINE 2019-1 No 5mL Com mon HCL 10MG/ML HCL 10MG/ML 0-15 S pirit 00:00: - [facility] [address] [facility] Kenalog Kenalog 2019-1 No 1mL Common (Triamcinol (Triamcinol 0-15 S pirit one) one) 00:00: - [facility] [address] [facility] LIDOCAINE LIDOCAINE 2019-1 No 5mL Com mon HCL 10MG/ML HCL 10MG/ML 0-15 S pirit 00:00: - [facility] [address] [facility] Hardyalog Kenalog 2019-1 No 1mL Common (Triamcinol (Triamcinol 0-15 S pirit one) one) 00:00: - [facility] [address] [facility] LIDOCAINE LIDOCAINE 2019-1 No 5mL Com mon HCL 10MG/ML HCL 10MG/ML 0-15 S pirit 00:00: - [facility] [address] [facility] Kenalog Kenalog 2019-1 No 1mL Common (Triamcinol (Triamcinol 0-15 S pirit one) one) 00:00: - [facility] [address] [facility] LIDOCAINE LIDOCAINE 2019-1 No 5mL Com mon HCL 10MG/ML HCL 10MG/ML 0-15 S pirit 00:00: - [facility] [address] [facility] Kenalog Kenalog 2019-1 No 1mL Common (Triamcinol (Triamcinol 0-15 S pirit one) one) 00:00: - [facility] [address] [facility] LIDOCAINE LIDOCAINE 2019-1 No 5mL Com mon HCL 10MG/ML HCL 10MG/ML 0-15 S pirit 00:00: - [facility] [address] [facility] Kenalog Kenalog 2019-1 No 1mL Common (Triamcinol (Triamcinol 0-15 S pirit one) one) 00:00: - [facility] [address] [facility] LIDOCAINE LIDOCAINE 2019-1 No 5mL Com mon HCL 10MG/ML HCL 10MG/ML 0-15 S pirit 00:00: - [facility] [address] [facility] Kenalog Kenalog 2019-1 No 1mL Common (Triamcinol (Triamcinol 0-15 S pirit one) one) 00:00: - [facility] [address] [facility] LIDOCAINE LIDOCAINE 2019-1 No 5mL Com mon HCL 10MG/ML HCL 10MG/ML 0-15 S pirit 00:00: - [facility] [address] [facility] Kenalog Kenalog 2019-1 No 1mL Common (Triamcinol (Triamcinol 0-15 S pirit one) one) 00:00: - [facility] [address] [facility] LIDOCAINE LIDOCAINE 2019-1 No 5mL Com mon HCL 10MG/ML HCL 10MG/ML 0-15 S pirit 00:00: - [facility] [address] [facility] Kenalog Kenalog 2019-1 No 1mL Common (Triamcinol (Triamcinol 0-15 S pirit one) one) 00:00: - [facility] LIDOCAINE LIDOCAINE 2019-1 No 5mL Com mon HCL 10MG/ML HCL 10MG/ML 0-15 S pirit 00:00: - [facility] [address] [facility] Kenalog Kenalog 2019-1 No 1mL Common (Triamcinol (Triamcinol 0-15 S pirit one) one) 00:00: - [facility] [address] [facility] Kenalog Kenalog 2019-1 No 1mL Common (Triamcinol (Triamcinol 0-15 S pirit one) one) 00:00: - [facility] [address] [facility] LIDOCAINE LIDOCAINE 2019-1 No 5mL Com mon HCL 10MG/ML HCL 10MG/ML 0-15 S pirit 00:00: - [facility] [address] [facility] Kenalog Kenalog 2019-1 No 1mL Common (Triamcinol (Triamcinol 0-15 S pirit one) one) 00:00: - [facility] [address] [facility] LIDOCAINE LIDOCAINE 2019-1 No 5mL Com mon HCL 10MG/ML HCL 10MG/ML 0-15 S pirit 00:00: - [facility] [address] [facility] Kenalog Kenalog 2019-1 No 1mL Common (Triamcinol (Triamcinol 0-15 S pirit one) one) 00:00: - [facility] [address] [facility] LIDOCAINE LIDOCAINE 2019-1 No 5mL Com mon HCL 10MG/ML HCL 10MG/ML 0-15 S pirit 00:00: - [facility] [address] [facility] Kenalog Kenalog 2019-0 No 40mg Common (Triamcinol (Triamcinol 8-20 S pirit one) one) 00:00: - [facility] [address] [facility] Kenalog Kenalog 2019-0 No 40mg Common (Triamcinol (Triamcinol 8-20 S pirit one) one) 00:00: - [facility] [address] [facility] Kenalog Kenalog 2019-0 No 40mg Common (Triamcinol (Triamcinol 8-20 S pirit one) one) 00:00: - [facility] [address] [facility] Kenjama Kenalog 2019-0 No 40mg Common (Triamcinol (Triamcinol 8-20 S pirit one) one) 00:00: - [facility] [address] [facility] Kenjama Kenalog 2019-0 No 40mg Common (Triamcinol (Triamcinol 8-20 S pirit one) one) 00:00: - [facility] [address] [facility] Kenjama Kenalog 2019-0 No 40mg Common (Triamcinol (Triamcinol 8-20 S pirit one) one) 00:00: - [facility] [address] [facility] Kenjama Kenalog 2019-0 No 40mg Common (Triamcinol (Triamcinol 8-20 S pirit one) one) 00:00: - [facility] [address] [facility] Kenalog Kenalog 2019-0 No 40mg Common (Triamcinol (Triamcinol 8-20 S pirit one) one) 00:00: - [facility] [address] [facility] Kenalog Kenalog 2019-0 No 40mg Common (Triamcinol (Triamcinol 8-20 S pirit one) one) 00:00: - [facility] [address] [facility] Kenalog Kenalog 2019-0 No 40mg Common (Triamcinol (Triamcinol 8-20 S pirit one) one) 00:00: - [facility] [address] [facility] Kenalog Kenalog 2019-0 No 40mg Common (Triamcinol (Triamcinol 8-20 S pirit one) one) 00:00: - [facility] [address] [facility] Kenalog Kenalog 2019-0 No 40mg Common (Triamcinol (Triamcinol 8-20 S pirit one) one) 00:00: - [facility] [address] [facility] Kenalog Kenalog 2019-0 No 40mg Common (Triamcinol (Triamcinol 8-20 S pirit one) one) 00:00: - [facility] [address] [facility] Kenalog Kenalog 2019-0 No 40mg Common (Triamcinol (Triamcinol 8-20 S pirit one) one) 00:00: - [facility] [address] [facility] Kenalog Kenalog 2019-0 No 40mg Common (Triamcinol (Triamcinol 8-20 S pirit one) one) 00:00: - [facility] [address] [facility] Kenalog Kenalog 2019-0 No 40mg Common (Triamcinol (Triamcinol 8-20 S pirit one) one) 00:00: - [facility] [address] [facility] Kenalog Kenalog 2019-0 No 40mg Common (Triamcinol (Triamcinol 8-20 S pirit one) one) 00:00: - [facility] [address] [facility] Kenalog Kenalog 2019-0 No 40mg Common (Triamcinol (Triamcinol 8-20 S pirit one) one) 00:00: - [facility] [address] [facility] Kenalog Kenalog 2019-0 No 40mg Common (Triamcinol (Triamcinol 8-20 S pirit one) one) 00:00: - [facility] [address] [facility] Kenalog Kenalog 2019-0 No 40mg Common (Triamcinol (Triamcinol 8-20 S pirit one) one) 00:00: - [facility] [address] [facility] Kenalog Kenalog 2019-0 No 40mg Common (Triamcinol (Triamcinol 8-20 S pirit one) one) 00:00: - [facility] [address] [facility] Kenalog Kenalog 2019-0 No 40mg Common (Triamcinol (Triamcinol 8-20 S pirit one) one) 00:00: - [facility] [address] [facility] Kenalog Kenalog 2019-0 No 40mg Common (Triamcinol (Triamcinol 8-20 S pirit one) one) 00:00: - [facility] [address] [facility] Kenalog Kenalog 2019-0 No 40mg Common (Triamcinol (Triamcinol 8-20 S pirit one) one) 00:00: - [facility] [address] [facility] Kenalog Kenalog 2019-0 No 40mg Common (Triamcinol (Triamcinol 8-20 S pirit one) one) 00:00: - [facility] [address] [facility] Kenalog Kenalog 2019-0 No 40mg Common (Triamcinol (Triamcinol 8-20 S pirit one) one) 00:00: - [facility] [address] [facility] Kenalog Kenalog 2019-0 No 40mg Common (Triamcinol (Triamcinol 8-20 S pirit one) one) 00:00: - [facility] [address] [facility] Kenalog Kenalog 2019-0 No 40mg Common (Triamcinol (Triamcinol 8-20 S pirit one) one) 00:00: - [facility] [address] [facility] Kenalog Kenalog 2019-0 No 40mg Common (Triamcinol (Triamcinol 8-20 S pirit one) one) 00:00: - [facility] [address] [facility] Kenjama Kenalog 2019-0 No 40mg Common (Triamcinol (Triamcinol 8-20 S pirit one) one) 00:00: - [facility] [address] [facility] Kenalog Kenalog 2019-0 No 40mg Common (Triamcinol (Triamcinol 8-20 S pirit one) one) 00:00: - [facility] [address] [facility] Kenalog Kenalog 2019-0 No 40mg Common (Triamcinol (Triamcinol 8-20 S pirit one) one) 00:00: - [facility] [address] [facility] Kenalog Kenalog 2019-0 No 40mg Common (Triamcinol (Triamcinol 8-20 S pirit one) one) 00:00: - [facility] [address] [facility] Kenalog Kenalog 2019-0 No 40mg Common (Triamcinol (Triamcinol 8-20 S pirit one) one) 00:00: - [facility] [address] [facility] Kenalog Kenalog 2019-0 No 40mg Common (Triamcinol (Triamcinol 8-20 S pirit one) one) 00:00: - [facility] [address] [facility] Kenalog Kenalog 2019-0 No 40mg Common (Triamcinol (Triamcinol 8-20 S pirit one) one) 00:00: - [facility] [address] [facility] Kenalog Kenalog 2019-0 No 40mg Common (Triamcinol (Triamcinol 8-20 S pirit one) one) 00:00: - [facility] [address] [facility] Kenalog Kenalog 2019-0 No 40mg Common (Triamcinol (Triamcinol 2-26 S pirit one) one) 00:00: - [facility] [address] [facility] Kenjama Kenalog 2019-0 No 40mg Common (Triamcinol (Triamcinol 2-26 S pirit one) one) 00:00: - [facility] [address] [facility] Kenalog Kenalog 2019-0 No 40mg Common (Triamcinol (Triamcinol 2-26 S pirit one) one) 00:00: - [facility] [address] [facility] Kenjama Kenalog 2019-0 No 40mg Common (Triamcinol (Triamcinol 2-26 S pirit one) one) 00:00: - [facility] [address] [facility] Kenjama Kenalog 2019-0 No 40mg Common (Triamcinol (Triamcinol 2-26 S pirit one) one) 00:00: - [facility] [address] [facility] Kenalog Kenalog 2019-0 No 40mg Common (Triamcinol (Triamcinol 2-26 S pirit one) one) 00:00: - [facility] [address] [facility] Kenalog Kenalog 2019-0 No 40mg Common (Triamcinol (Triamcinol 2-26 S pirit one) one) 00:00: - [facility] [address] [facility] Kenalog Kenalog 2019-0 No 40mg Common (Triamcinol (Triamcinol 2-26 S pirit one) one) 00:00: - [facility] [address] [facility] Kenalog Kenalog 2019-0 No 40mg Common (Triamcinol (Triamcinol 2-26 S pirit one) one) 00:00: - [facility] [address] [facility] Kenalog Kenalog 2019-0 No 40mg Common (Triamcinol (Triamcinol 2-26 S pirit one) one) 00:00: - [facility] [address] [facility] Kenalog Kenalog 2019-0 No 40mg Common (Triamcinol (Triamcinol 2-26 S pirit one) one) 00:00: - [facility] [address] [facility] Kenalog Kenalog 2019-0 No 40mg Common (Triamcinol (Triamcinol 2-26 S pirit one) one) 00:00: - [facility] [address] [facility] Kenalog Kenalog 2019-0 No 40mg Common (Triamcinol (Triamcinol 2-26 S pirit one) one) 00:00: - [facility] [address] [facility] Kenalog Kenalog 2019-0 No 40mg Common (Triamcinol (Triamcinol 2-26 S pirit one) one) 00:00: - [facility] [address] [facility] Kenalog Kenalog 2019-0 No 40mg Common (Triamcinol (Triamcinol 2-26 S pirit one) one) 00:00: - [facility] [address] [facility] Kenjama Kenalog 2019-0 No 40mg Common (Triamcinol (Triamcinol 2-26 S pirit one) one) 00:00: - [facility] [address] [facility] Kenalog Kenalog 2019-0 No 40mg Common (Triamcinol (Triamcinol 2-26 S pirit one) one) 00:00: - [facility] [address] [facility] Kenalog Kenalog 2019-0 No 40mg Common (Triamcinol (Triamcinol 2-26 S pirit one) one) 00:00: - [facility] [address] [facility] Kenalog Kenalog 2019-0 No 40mg Common (Triamcinol (Triamcinol 2-26 S pirit one) one) 00:00: - [facility] [address] [facility] Kenalog Kenalog 2019-0 No 40mg Common (Triamcinol (Triamcinol 2-26 S pirit one) one) 00:00: - [facility] [address] [facility] Kenalog Kenalog 2019-0 No 40mg Common (Triamcinol (Triamcinol 2-26 S pirit one) one) 00:00: - [facility] [address] [facility] Kenalog Kenalog 2019-0 No 40mg Common (Triamcinol (Triamcinol 2-26 S pirit one) one) 00:00: - [facility] [address] [facility] Kenalog Kenalog 2019-0 No 40mg Common (Triamcinol (Triamcinol 2-26 S pirit one) one) 00:00: - [facility] [address] [facility] Kenjama Kenalog 2019-0 No 40mg Common (Triamcinol (Triamcinol 2-26 S pirit one) one) 00:00: - [facility] [address] [facility] Kenjama Kenalog 2019-0 No 40mg Common (Triamcinol (Triamcinol 2-26 S pirit one) one) 00:00: - [facility] [address] [facility] Kenjama Kenalog 2019-0 No 40mg Common (Triamcinol (Triamcinol 2-26 S pirit one) one) 00:00: - [facility] [address] [facility] Kenjama Kenalog 2019-0 No 40mg Common (Triamcinol (Triamcinol 2-26 S pirit one) one) 00:00: - [facility] [address] [facility] Kenjama Kenalog 2019-0 No 40mg Common (Triamcinol (Triamcinol 2-26 S pirit one) one) 00:00: - [facility] [address] [facility] Kenjama Kenalog 2019-0 No 40mg Common (Triamcinol (Triamcinol 2-26 S pirit one) one) 00:00: - [facility] [address] [facility] Kenalog Kenalog 2019-0 No 40mg Common (Triamcinol (Triamcinol 2-26 S pirit one) one) 00:00: - [facility] [address] [facility] Kenjama Kenalog 2019-0 No 40mg Common (Triamcinol (Triamcinol 2-26 S pirit one) one) 00:00: - [facility] [address] [facility] Kenalog Kenalog 2019-0 No 40mg Common (Triamcinol (Triamcinol 2-26 S pirit one) one) 00:00: - [facility] [address] [facility] Xochitl Leung 2018-0 No 40mg Common (Triamcinol (Triamcinol 2-26 S pirit one) one) 00:00: - [facility] [address] [facility] Xochitl Leung 2018-0 No 40mg Common (Triamcinol (Triamcinol 2-26 S pirit one) one) 00:00: - [facility] Xochitl Leung 2018-0 No 40mg Common (Triamcinol (Triamcinol 2-26 S pirit one) one) 00:00: - [facility] [address] [facility] Xochitl Leung 0 No 40mg Common (Triamcinol (Triamcinol 2-26 S pirit one) one) 00:00: - [facility] [address] [facility] Xochitl Leung 0 No 40mg Common (Triamcinol (Triamcinol 2-26 S pirit one) one) 00:00: - [facility] [address] [facility] albuterol albuterol No albuterol [place] sulfate HFA sulfate HFA sulfate [facility] 90 90 HFA 90 Urology mcg/actuati mcg/actuati mcg/actuat on aerosol on aerosol ion inhaler inhaler aerosol INHALE 2 INHALE 2 inhaler PUFFS BY PUFFS BY INHALE 2 MOUTH EVERY MOUTH EVERY PUFFS BY 6 HOURS 6 HOURS MOUTH NEEDED FOR NEEDED FOR EVERY 6 COUGH OR COUGH OR HOURS WHEEZING OR WHEEZING OR NEEDED FOR SHORTNESS SHORTNESS COUGH OR OF BREATH OF BREATH WHEEZING OR SHORTNESS OF BREATH azelastine- azelastine- No azelastine [place] fluticasone fluticasone -fluticaso [facility] 137 mcg-50 137 mcg-50 ne 137 U rology mcg/spray mcg/spray mcg-50 nasal spray nasal spray mcg/spray SHAKE SHAKE nasal LIQUID AND LIQUID AND spray USE 1 SPRAY USE 1 SPRAY SHAKE IN EACH IN EACH LIQUID AND NOSTRIL NOSTRIL USE 1 TWICE DAILY TWICE DAILY SPRAY IN EACH NOSTRIL TWICE DAILY Bactrim DS Bactrim DS No 1 Q12H Bactrim DS [place] 800 mg-160 800 mg-160 800 mg-160 Metro mg tablet mg tablet mg tablet Urology Take 1 Take 1 Take 1 tablet tablet tablet every 12 every 12 every 12 hours by hours by hours by oral route oral route oral route for 14 for 14 for 14 days. days. days. celecoxib celecoxib No celecoxib [place] 200 mg 200 mg 200 mg [facility] capsule capsule capsule Urolog y TAKE 1 TAKE 1 TAKE 1 CAPSULE BY CAPSULE BY CAPSULE BY MOUTH EVERY MOUTH EVERY MOUTH DAY WITH DAY WITH EVERY DAY FOOD FOOD WITH FOOD citalopram citalopram No citalopram [place] 40 mg 40 mg 40 mg [facility] tablet TAKE tablet TAKE tablet Urology 1 TABLET BY 1 TABLET BY TAKE 1 MOUTH EVERY MOUTH EVERY TABLET BY DAY DAY MOUTH EVERY DAY dexamethaso dexamethaso No dexamethas [place] ne 4 mg ne 4 mg one 4 mg [facility] tablet TAKE tablet TAKE tablet Urology ONE TABLET ONE TABLET TAKE ONE BY MOUTH BY MOUTH TABLET BY ONCE A DAY ONCE A DAY MOUTH ONCE WITH FOOD WITH FOOD A DAY WITH FOOD dicyclomine dicyclomine No dicyclomin [place] 20 mg 20 mg e 20 mg [facility] tablet TAKE tablet TAKE tablet Urology 1 TABLET BY 1 TABLET BY TAKE 1 MOUTH FOUR MOUTH FOUR TABLET BY TIMES DAILY TIMES DAILY MOUTH FOUR TIMES DAILY famotidine famotidine No famotidine [place] 20 mg 20 mg 20 mg [facility] tablet TAKE tablet TAKE tablet Urology 1 TABLET BY 1 TABLET BY TAKE 1 MOUTH EVERY MOUTH EVERY TABLET BY 12 HOURS 12 HOURS MOUTH FOR 10 DAYS FOR 10 DAYS EVERY 12 HOURS FOR 10 DAYS hydrocodone hydrocodone No hydrocodon [place] 7.5 7.5 e 7.5 [facility] mg-acetamin mg-acetamin mg-acetami Urology ophen 325 ophen 325 nophen 325 mg tablet mg tablet mg tablet TAKE 1 TAKE 1 TAKE 1 TABLET BY TABLET BY TABLET BY MOUTH EVERY MOUTH EVERY MOUTH 12 HOURS 12 HOURS EVERY 12 NEEDED FOR NEEDED FOR HOURS PAIN PAIN NEEDED FOR PAIN lorazepam lorazepam No lorazepam [place] 0.5 mg 0.5 mg 0.5 mg [facility] tablet TAKE tablet TAKE tablet Urology 1 TABLET BY 1 TABLET BY TAKE 1 MOUTH PRIOR MOUTH PRIOR TABLET BY TO MRI. AUGUST TO . AUGUST MOUTH REPEAT IN REPEAT IN PRIOR TO 15 MINUTES 15 MINUTES MRI. MAY NEEDED NEEDED REPEAT IN 15 MINUTES NEEDED montelukast montelukast No montelukas [place] 10 mg 10 mg t 10 mg [facility] tablet TAKE tablet TAKE tablet Urology 1 TABLET BY 1 TABLET BY TAKE 1 MOUTH EVERY MOUTH EVERY TABLET BY DAY DAY MOUTH EVERY DAY ondansetron ondansetron No ondansetro [place] HCl 8 mg HCl 8 mg n HCl 8 mg M etro tablet TAKE tablet TAKE tablet Urology 1 TABLET BY 1 TABLET BY TAKE 1 MOUTH TWICE MOUTH TWICE TABLET BY DAILY FOR 5 DAILY FOR 5 MOUTH DAYS DAYS TWICE DAILY FOR 5 DAYS phenazopyri phenazopyri No phenazopyr [place] dine 200 mg dine 200 mg idine 200 [facility] tablet TAKE tablet TAKE mg tablet Urology 1 TABLET BY 1 TABLET BY TAKE 1 MOUTH TWICE MOUTH TWICE TABLET BY DAILY AFTER DAILY AFTER MOUTH MEALS FOR 2 MEALS FOR 2 TWICE DAYS DAYS DAILY AFTER MEALS FOR 2 DAYS prednisone prednisone No prednisone [place] 10 mg 10 mg 10 mg [facility] tablet tablet tablet Urology Promethegan Promethegan No Promethega [place] 12.5 mg 12.5 mg n 12.5 mg Metr o rectal rectal rectal Urology suppository suppository suppositor INSERT ONE INSERT ONE y INSERT SUPPOSITORY SUPPOSITORY ONE RECTALLY RECTALLY SUPPOSITOR EVERY 12 EVERY 12 Y RECTALLY HOURS FOR HOURS FOR EVERY 12 10 DAYS 10 DAYS HOURS FOR 10 DAYS ropinirole ropinirole No ropinirole [place] 4 mg tablet 4 mg tablet 4 mg M etro TAKE 1 TAKE 1 tablet Urology TABLET BY TABLET BY TAKE 1 MOUTH EVERY MOUTH EVERY TABLET BY NIGHT 1 TO NIGHT 1 TO MOUTH 3 HOURS 3 HOURS EVERY BEFORE BEFORE NIGHT 1 TO BEDTIME BEDTIME 3 HOURS BEFORE BEDTIME tramadol 50 tramadol 50 No tramadol [place] mg tablet mg tablet 50 mg Metr o TAKE 1 TAKE 1 tablet Urology TABLET BY TABLET BY TAKE 1 MOUTH EVERY MOUTH EVERY TABLET BY 12 HOURS 12 HOURS MOUTH NEEDED FOR NEEDED FOR EVERY 12 PAIN PAIN HOURS NEEDED FOR PAIN albuterol albuterol No albuterol [place] sulfate HFA sulfate HFA sulfate [facility] 90 90 HFA 90 Urology mcg/actuati mcg/actuati mcg/actuat on aerosol on aerosol ion inhaler inhaler aerosol INHALE 2 INHALE 2 inhaler PUFFS BY PUFFS BY INHALE 2 MOUTH EVERY MOUTH EVERY PUFFS BY 6 HOURS 6 HOURS MOUTH NEEDED FOR NEEDED FOR EVERY 6 COUGH OR COUGH OR HOURS WHEEZING OR WHEEZING OR NEEDED FOR SHORTNESS SHORTNESS COUGH OR OF BREATH OF BREATH WHEEZING OR SHORTNESS OF BREATH azelastine- azelastine- No azelastine [place] fluticasone fluticasone -fluticaso [facility] 137 mcg-50 137 mcg-50 ne 137 U rology mcg/spray mcg/spray mcg-50 nasal spray nasal spray mcg/spray SHAKE SHAKE nasal LIQUID AND LIQUID AND spray USE 1 SPRAY USE 1 SPRAY SHAKE IN EACH IN EACH LIQUID AND NOSTRIL NOSTRIL USE 1 TWICE DAILY TWICE DAILY SPRAY IN EACH NOSTRIL TWICE DAILY celecoxib celecoxib No celecoxib [place] 200 mg 200 mg 200 mg [facility] capsule capsule capsule Urolog y TAKE 1 TAKE 1 TAKE 1 CAPSULE BY CAPSULE BY CAPSULE BY MOUTH EVERY MOUTH EVERY MOUTH DAY WITH DAY WITH EVERY DAY FOOD FOOD WITH FOOD ciprofloxac ciprofloxac No ciprofloxa [place] in 500 mg in 500 mg avril 500 mg [facility] tablet TAKE tablet TAKE tablet Urology 1 TABLET BY 1 TABLET BY TAKE 1 MOUTH EVERY MOUTH EVERY TABLET BY 12 HOURS 12 HOURS MOUTH FOR 5 DAYS FOR 5 DAYS EVERY 12 HOURS FOR 5 DAYS citalopram citalopram No citalopram [place] 40 mg 40 mg 40 mg [facility] tablet TAKE tablet TAKE tablet Urology 1 TABLET BY 1 TABLET BY TAKE 1 MOUTH EVERY MOUTH EVERY TABLET BY DAY DAY MOUTH EVERY DAY dexamethaso dexamethaso No dexamethas [place] ne 4 mg ne 4 mg one 4 mg [facility] tablet TAKE tablet TAKE tablet Urology ONE TABLET ONE TABLET TAKE ONE BY MOUTH BY MOUTH TABLET BY ONCE A DAY ONCE A DAY MOUTH ONCE WITH FOOD WITH FOOD A DAY WITH FOOD dicyclomine dicyclomine No dicyclomin [place] 20 mg 20 mg e 20 mg [facility] tablet TAKE tablet TAKE tablet Urology 1 TABLET BY 1 TABLET BY TAKE 1 MOUTH FOUR MOUTH FOUR TABLET BY TIMES DAILY TIMES DAILY MOUTH FOUR TIMES DAILY famotidine famotidine No famotidine [place] 20 mg 20 mg 20 mg [facility] tablet TAKE tablet TAKE tablet Urology 1 TABLET BY 1 TABLET BY TAKE 1 MOUTH EVERY MOUTH EVERY TABLET BY 12 HOURS 12 HOURS MOUTH FOR 10 DAYS FOR 10 DAYS EVERY 12 HOURS FOR 10 DAYS fluconazole fluconazole No 1 Q2D fluconazol [place] 150 mg 150 mg e 150 mg [facility] tablet Take tablet Take tablet Urology 1 tablet 1 tablet Take 1 every other every other tablet day by oral day by oral every route for 3 route for 3 other day days. days. by oral route for 3 days. hydrocodone hydrocodone No hydrocodon [place] 7.5 7.5 e 7.5 [facility] mg-acetamin mg-acetamin mg-acetami Urology ophen 325 ophen 325 nophen 325 mg tablet mg tablet mg tablet TAKE 1 TAKE 1 TAKE 1 TABLET BY TABLET BY TABLET BY MOUTH EVERY MOUTH EVERY MOUTH 12 HOURS 12 HOURS EVERY 12 NEEDED FOR NEEDED FOR HOURS PAIN PAIN NEEDED FOR PAIN levofloxaci levofloxaci No levofloxac [place] n 500 mg n 500 mg in 500 mg Me tro tablet TAKE tablet TAKE tablet Urology 1 TABLET BY 1 TABLET BY TAKE 1 MOUTH EVERY MOUTH EVERY TABLET BY 24 HOURS 24 HOURS MOUTH FOR 7 DAYS FOR 7 DAYS EVERY 24 HOURS FOR 7 DAYS lorazepam lorazepam No lorazepam [place] 0.5 mg 0.5 mg 0.5 mg [facility] tablet TAKE tablet TAKE tablet Urology 1 TABLET BY 1 TABLET BY TAKE 1 MOUTH PRIOR MOUTH PRIOR TABLET BY TO MRI. AUGUST TO MRI. AUGUST MOUTH REPEAT IN REPEAT IN PRIOR TO 15 MINUTES 15 MINUTES MRI. MAY NEEDED NEEDED REPEAT IN 15 MINUTES NEEDED montelukast montelukast No montelukas [place] 10 mg 10 mg t 10 mg [facility] tablet TAKE tablet TAKE tablet Urology 1 TABLET BY 1 TABLET BY TAKE 1 MOUTH EVERY MOUTH EVERY TABLET BY DAY DAY MOUTH EVERY DAY nystatin nystatin No nystatin Jacob ston 100,000 100,000 100,000 [facility] unit/gram unit/gram unit/gram Urology topical topical topical cream APPLY cream APPLY cream TO THE TO THE APPLY TO AFFECTED AFFECTED THE AREA(S) BY AREA(S) BY AFFECTED TOPICAL TOPICAL AREA(S) BY ROUTE 2 ROUTE 2 TOPICAL TIMES PER TIMES PER ROUTE 2 DAY DAY TIMES PER DAY ondansetron ondansetron No ondansetro [place] HCl 8 mg HCl 8 mg n HCl 8 mg M etro tablet TAKE tablet TAKE tablet Urology 1 TABLET BY 1 TABLET BY TAKE 1 MOUTH TWICE MOUTH TWICE TABLET BY DAILY FOR 5 DAILY FOR 5 MOUTH DAYS DAYS TWICE DAILY FOR 5 DAYS phenazopyri phenazopyri No phenazopyr [place] dine 200 mg dine 200 mg idine 200 [facility] tablet TAKE tablet TAKE mg tablet Urology 1 TABLET BY 1 TABLET BY TAKE 1 MOUTH TWICE MOUTH TWICE TABLET BY DAILY AFTER DAILY AFTER MOUTH MEALS FOR 2 MEALS FOR 2 TWICE DAYS DAYS DAILY AFTER MEALS FOR 2 DAYS prednisone prednisone No prednisone [place] 10 mg 10 mg 10 mg [facility] tablet tablet tablet Urology Promethegan Promethegan No Promethega [place] 12.5 mg 12.5 mg n 12.5 mg Metr o rectal rectal rectal Urology suppository suppository suppositor INSERT ONE INSERT ONE y INSERT SUPPOSITORY SUPPOSITORY ONE RECTALLY RECTALLY SUPPOSITOR EVERY 12 EVERY 12 Y RECTALLY HOURS FOR HOURS FOR EVERY 12 10 DAYS 10 DAYS HOURS FOR 10 DAYS ropinirole ropinirole No ropinirole [place] 4 mg tablet 4 mg tablet 4 mg M etro TAKE 1 TAKE 1 tablet Urology TABLET BY TABLET BY TAKE 1 MOUTH EVERY MOUTH EVERY TABLET BY NIGHT 1 TO NIGHT 1 TO MOUTH 3 HOURS 3 HOURS EVERY BEFORE BEFORE NIGHT 1 TO BEDTIME BEDTIME 3 HOURS BEFORE BEDTIME sulfamethox sulfamethox No sulfametho [place] azole 800 azole 800 xazole 800 [facility] mg-trimetho mg-trimetho mg-trimeth Urology prim 160 mg prim 160 mg oprim 160 tablet TAKE tablet TAKE mg tablet 1 TABLET BY 1 TABLET BY TAKE 1 MOUTH EVERY MOUTH EVERY TABLET BY 12 HOURS 12 HOURS MOUTH FOR 14 DAYS FOR 14 DAYS EVERY 12 HOURS FOR 14 DAYS tramadol 50 tramadol 50 No tramadol [place] mg tablet mg tablet 50 mg Metr o TAKE 1 TAKE 1 tablet Urology TABLET BY TABLET BY TAKE 1 MOUTH EVERY MOUTH EVERY TABLET BY 12 HOURS 12 HOURS MOUTH NEEDED FOR NEEDED FOR EVERY 12 PAIN PAIN HOURS NEEDED FOR PAIN Trazodone Trazodone Yes Jaziel 1 tablet Common HCl HCl Felder at bedtime [facility] as needed [facility] Ondansetron Ondansetron Yes Jaziel not Common HCl HCl Felder defined [facility] Mupirocin Mupirocin Yes Jaziel not Com mon Felder defined [facility] Estrace Estrace Yes Jaziel as Common Felder directed [facility] Citalopram Citalopram Yes Jaziel 1 tablet Common Hydrobromid Hydrobromid Felder [facility] e e [facility] Lidocaine Lidocaine Yes Jaziel not Com mon Felder defined [facility] Omeprazole Omeprazole Yes Jaziel 1 capsule Common Felder [facility] Requip Requip Yes Jaziel 1 tablet 1 Com mon Felder to 3 hours [facility] before [facility] bedtime [facility] Hydrocodone Hydrocodone Yes Jaziel (Schedule Common -Acetaminop -Acetaminop Felder II Drug) [facility] hen hen TK 1 T PO - [facility] Q [address] [facility] Ropinirole Ropinirole Yes Jaziel TAKE 1 Common HCl HCl Felder TABLET BY [facility] MOUTH 1 TO - [facility] [address] [facility] AT [facility] Celecoxib Celecoxib Yes Jaziel 1 capsule Common Felder with food [facility] Methocarbam Methocarbam Yes Jaziel 1 tablet Common ol ol Felder [facility] rOPINIRole rOPINIRole No rOPINIRole HCl 3 MG HCl 3 MG HCl 3 MG HYDROcodone HYDROcodone No HYDROcodon -Acetaminop -Acetaminop e-Acetamin hen 7.5-325 hen 7.5-325 ophen MG MG 7.5-325 MG Pregabalin Pregabalin No Pregabalin 75 MG 75 MG 75 MG Citalopram Citalopram No Citalopram Hydrobromid Hydrobromid Hydrobromi e 40 MG e 40 MG de 40 MG Montelukast Montelukast No Montelukas Sodium 10 Sodium 10 t Sodium MG MG 10 MG Benzonatate Benzonatate No 1{capsu TID Benzonatat 200 MG 200 MG le} e 200 MG Methocarbam Methocarbam No 1{table QD Methocarba ol 750 MG ol 750 MG t} mol 750 MG Azelastine- Azelastine- No 1{spray BID Azelastine Fluticasone Fluticasone _in_eac -Fluticaso 137-50 137-50 h_nostr ne 137-50 MCG/ACT MCG/ACT il} MCG/ACT Lidocaine Lidocaine No Lidocaine Vitamin D3 Vitamin D3 No 1{capsu Vitamin D3 [id number] UNIT [id number] UNIT le} [id number] UNIT Dicyclomine Dicyclomine No Dicyclomin HCl 20 MG HCl 20 MG e HCl 20 MG Estrace 0.1 Estrace 0.1 No Estrace MG/GM MG/GM 0.1 MG/GM traMADol traMADol No traMADol HCl 50 MG HCl 50 MG HCl 50 MG Ondansetron Ondansetron No Ondansetro HCl HCl n HCl Famotidine Famotidine No Famotidine 20 MG 20 MG 20 MG rOPINIRole rOPINIRole No rOPINIRole HCl 4 MG HCl 4 MG HCl 4 MG predniSONE predniSONE No QD predniSONE 10 MG 10 MG 10 MG Omeprazole Omeprazole No 1{capsu QD Omeprazole 10 MG 10 MG le} 10 MG Mupirocin Mupirocin No Mupirocin rOPINIRole rOPINIRole No rOPINIRole HCl 3 MG HCl 3 MG HCl 3 MG HYDROcodone HYDROcodone No HYDROcodon -Acetaminop -Acetaminop e-Acetamin hen 7.5-325 hen 7.5-325 ophen MG MG 7.5-325 MG Pregabalin Pregabalin No Pregabalin 75 MG 75 MG 75 MG Citalopram Citalopram No Citalopram Hydrobromid Hydrobromid Hydrobromi e 40 MG e 40 MG de 40 MG Montelukast Montelukast No Montelukas Sodium 10 Sodium 10 t Sodium MG MG 10 MG Benzonatate Benzonatate No 1{capsu TID Benzonatat 200 MG 200 MG le} e 200 MG Methocarbam Methocarbam No 1{table QD Methocarba ol 750 MG ol 750 MG t} mol 750 MG Azelastine- Azelastine- No 1{spray BID Azelastine Fluticasone Fluticasone _in_eac -Fluticaso 137-50 137-50 h_nostr ne 137-50 MCG/ACT MCG/ACT il} MCG/ACT Lidocaine Lidocaine No Lidocaine Vitamin D3 Vitamin D3 No 1{capsu Vitamin D3 69205 UNIT [id number] UNIT le} [id number] UNIT Dicyclomine Dicyclomine No Dicyclomin HCl 20 MG HCl 20 MG e HCl 20 MG Estrace 0.1 Estrace 0.1 No Estrace MG/GM MG/GM 0.1 MG/GM traMADol traMADol No traMADol HCl 50 MG HCl 50 MG HCl 50 MG Ondansetron Ondansetron No Ondansetro HCl HCl n HCl Famotidine Famotidine No Famotidine 20 MG 20 MG 20 MG rOPINIRole rOPINIRole No rOPINIRole HCl 4 MG HCl 4 MG HCl 4 MG predniSONE predniSONE No QD predniSONE 10 MG 10 MG 10 MG Omeprazole Omeprazole No 1{capsu QD Omeprazole 10 MG 10 MG le} 10 MG Mupirocin Mupirocin No Mupirocin rOPINIRole rOPINIRole No rOPINIRole HCl 3 MG HCl 3 MG HCl 3 MG HYDROcodone HYDROcodone No HYDROcodon -Acetaminop -Acetaminop e-Acetamin hen 7.5-325 hen 7.5-325 ophen MG MG 7.5-325 MG Pregabalin Pregabalin No Pregabalin 75 MG 75 MG 75 MG Citalopram Citalopram No Citalopram Hydrobromid Hydrobromid Hydrobromi e 40 MG e 40 MG de 40 MG Montelukast Montelukast No Montelukas Sodium 10 Sodium 10 t Sodium MG MG 10 MG Benzonatate Benzonatate No 1{capsu TID Benzonatat 200 MG 200 MG le} e 200 MG Methocarbam Methocarbam No 1{table QD Methocarba ol 750 MG ol 750 MG t} mol 750 MG Azelastine- Azelastine- No 1{spray BID Azelastine Fluticasone Fluticasone _in_eac -Fluticaso 137-50 137-50 h_nostr ne 137-50 MCG/ACT MCG/ACT il} MCG/ACT Lidocaine Lidocaine No Lidocaine Vitamin D3 Vitamin D3 No 1{capsu Vitamin D3 41489 UNIT [id number] UNIT le} [id number] UNIT Dicyclomine Dicyclomine No Dicyclomin HCl 20 MG HCl 20 MG e HCl 20 MG Estrace 0.1 Estrace 0.1 No Estrace MG/GM MG/GM 0.1 MG/GM traMADol traMADol No traMADol HCl 50 MG HCl 50 MG HCl 50 MG Ondansetron Ondansetron No Ondansetro HCl HCl n HCl Famotidine Famotidine No Famotidine 20 MG 20 MG 20 MG rOPINIRole rOPINIRole No rOPINIRole HCl 4 MG HCl 4 MG HCl 4 MG predniSONE predniSONE No QD predniSONE 10 MG 10 MG 10 MG Omeprazole Omeprazole No 1{capsu QD Omeprazole 10 MG 10 MG le} 10 MG Mupirocin Mupirocin No Mupirocin rOPINIRole rOPINIRole No rOPINIRole HCl 3 MG HCl 3 MG HCl 3 MG HYDROcodone HYDROcodone No HYDROcodon -Acetaminop -Acetaminop e-Acetamin hen 7.5-325 hen 7.5-325 ophen MG MG 7.5-325 MG Pregabalin Pregabalin No Pregabalin 75 MG 75 MG 75 MG Citalopram Citalopram No Citalopram Hydrobromid Hydrobromid Hydrobromi e 40 MG e 40 MG de 40 MG Montelukast Montelukast No Montelukas Sodium 10 Sodium 10 t Sodium MG MG 10 MG Benzonatate Benzonatate No 1{capsu TID Benzonatat 200 MG 200 MG le} e 200 MG Methocarbam Methocarbam No 1{table QD Methocarba ol 750 MG ol 750 MG t} mol 750 MG Azelastine- Azelastine- No 1{spray BID Azelastine Fluticasone Fluticasone _in_eac -Fluticaso 137-50 137-50 h_nostr ne 137-50 MCG/ACT MCG/ACT il} MCG/ACT Lidocaine Lidocaine No Lidocaine Vitamin D3 Vitamin D3 No 1{capsu Vitamin D3 23564 UNIT 82944 UNIT le} 73238 UNIT Dicyclomine Dicyclomine No Dicyclomin HCl 20 MG HCl 20 MG e HCl 20 MG Estrace 0.1 Estrace 0.1 No Estrace MG/GM MG/GM 0.1 MG/GM traMADol traMADol No traMADol HCl 50 MG HCl 50 MG HCl 50 MG Ondansetron Ondansetron No Ondansetro HCl HCl n HCl Famotidine Famotidine No Famotidine 20 MG 20 MG 20 MG rOPINIRole rOPINIRole No rOPINIRole HCl 3 MG HCl 3 MG HCl 3 MG Citalopram Citalopram No QD Citalopram Hydrobromid Hydrobromid Hydrobromi e 40 MG e 40 MG de 40 MG Ondansetron Ondansetron No Ondansetro HCl HCl n HCl Montelukast Montelukast No Montelukas Sodium 10 Sodium 10 t Sodium MG MG 10 MG Benzonatate Benzonatate No 1{capsu TID Benzonatat 200 MG 200 MG le} e 200 MG Methocarbam Methocarbam No 1{table QD Methocarba ol 750 MG ol 750 MG t} mol 750 MG Pregabalin Pregabalin No Pregabalin 75 MG 75 MG 75 MG Estrace 0.1 Estrace 0.1 No Estrace MG/GM MG/GM 0.1 MG/GM Omeprazole Omeprazole No 1{capsu QD Omeprazole 10 MG 10 MG le} 10 MG Vitamin D3 Vitamin D3 No 1{capsu Vitamin D3 94884 UNIT 10102 UNIT le} 40970 UNIT rOPINIRole rOPINIRole No rOPINIRole HCl 4 MG HCl 4 MG HCl 4 MG Dicyclomine Dicyclomine No Dicyclomin HCl 20 MG HCl 20 MG e HCl 20 MG Lidocaine Lidocaine No Lidocaine Famotidine Famotidine No Famotidine 20 MG 20 MG 20 MG traMADol traMADol No traMADol HCl 50 MG HCl 50 MG HCl 50 MG Azelastine- Azelastine- No 1{spray BID Azelastine Fluticasone Fluticasone _in_eac -Fluticaso 137-50 137-50 h_nostr ne 137-50 MCG/ACT MCG/ACT il} MCG/ACT predniSONE predniSONE No QD predniSONE 10 MG 10 MG 10 MG Mupirocin Mupirocin No Mupirocin HYDROcodone HYDROcodone No HYDROcodon -Acetaminop -Acetaminop e-Acetamin hen 7.5-325 hen 7.5-325 ophen MG MG 7.5-325 MG Azelastine- Azelastine- No 1{spray BID Azelastine Fluticasone Fluticasone _in_eac -Fluticaso 137-50 137-50 h_nostr ne 137-50 MCG/ACT MCG/ACT il} MCG/ACT Famotidine Famotidine No Famotidine 20 MG 20 MG 20 MG Benzonatate Benzonatate No 1{capsu TID Benzonatat 200 MG 200 MG le} e 200 MG rOPINIRole rOPINIRole No rOPINIRole HCl 3 MG HCl 3 MG HCl 3 MG Dicyclomine Dicyclomine No Dicyclomin HCl 20 MG HCl 20 MG e HCl 20 MG Lidocaine Lidocaine No Lidocaine Omeprazole Omeprazole No 1{capsu QD Omeprazole 10 MG 10 MG le} 10 MG Citalopram Citalopram No QD Citalopram Hydrobromid Hydrobromid Hydrobromi e 40 MG e 40 MG de 40 MG Montelukast Montelukast No Montelukas Sodium 10 Sodium 10 t Sodium MG MG 10 MG Methocarbam Methocarbam No 1{table QD Methocarba ol 750 MG ol 750 MG t} mol 750 MG Mupirocin Mupirocin No Mupirocin traMADol traMADol No traMADol HCl 50 MG HCl 50 MG HCl 50 MG Vitamin D3 Vitamin D3 No 1{capsu Vitamin D3 67725 UNIT 56118 UNIT le} 63362 UNIT Ondansetron Ondansetron No Ondansetro HCl HCl n HCl Pregabalin Pregabalin No Pregabalin 75 MG 75 MG 75 MG rOPINIRole rOPINIRole No rOPINIRole HCl 4 MG HCl 4 MG HCl 4 MG Estrace 0.1 Estrace 0.1 No Estrace MG/GM MG/GM 0.1 MG/GM HYDROcodone HYDROcodone No HYDROcodon -Acetaminop -Acetaminop e-Acetamin hen 7.5-325 hen 7.5-325 ophen MG MG 7.5-325 MG predniSONE predniSONE No QD predniSONE 10 MG 10 MG 10 MG Azelastine- Azelastine- No 1{spray BID Azelastine Fluticasone Fluticasone _in_eac -Fluticaso 137-50 137-50 h_nostr ne 137-50 MCG/ACT MCG/ACT il} MCG/ACT Famotidine Famotidine No Famotidine 20 MG 20 MG 20 MG Benzonatate Benzonatate No 1{capsu TID Benzonatat 200 MG 200 MG le} e 200 MG rOPINIRole rOPINIRole No rOPINIRole HCl 3 MG HCl 3 MG HCl 3 MG Dicyclomine Dicyclomine No Dicyclomin HCl 20 MG HCl 20 MG e HCl 20 MG Lidocaine Lidocaine No Lidocaine Omeprazole Omeprazole No 1{capsu QD Omeprazole 10 MG 10 MG le} 10 MG Citalopram Citalopram No QD Citalopram Hydrobromid Hydrobromid Hydrobromi e 40 MG e 40 MG de 40 MG Montelukast Montelukast No Montelukas Sodium 10 Sodium 10 t Sodium MG MG 10 MG Methocarbam Methocarbam No 1{table QD Methocarba ol 750 MG ol 750 MG t} mol 750 MG Mupirocin Mupirocin No Mupirocin traMADol traMADol No traMADol HCl 50 MG HCl 50 MG HCl 50 MG Vitamin D3 Vitamin D3 No 1{capsu Vitamin D3 97746 UNIT 73877 UNIT le} 12374 UNIT Ondansetron Ondansetron No Ondansetro HCl HCl n HCl Pregabalin Pregabalin No Pregabalin 75 MG 75 MG 75 MG rOPINIRole rOPINIRole No rOPINIRole HCl 4 MG HCl 4 MG HCl 4 MG Estrace 0.1 Estrace 0.1 No Estrace MG/GM MG/GM 0.1 MG/GM HYDROcodone HYDROcodone No HYDROcodon -Acetaminop -Acetaminop e-Acetamin hen 7.5-325 hen 7.5-325 ophen MG MG 7.5-325 MG predniSONE predniSONE No QD predniSONE 10 MG 10 MG 10 MG Azelastine- Azelastine- No 1{spray BID Azelastine Fluticasone Fluticasone _in_eac -Fluticaso 137-50 137-50 h_nostr ne 137-50 MCG/ACT MCG/ACT il} MCG/ACT Famotidine Famotidine No Famotidine 20 MG 20 MG 20 MG Benzonatate Benzonatate No 1{capsu TID Benzonatat 200 MG 200 MG le} e 200 MG rOPINIRole rOPINIRole No rOPINIRole HCl 3 MG HCl 3 MG HCl 3 MG Dicyclomine Dicyclomine No Dicyclomin HCl 20 MG HCl 20 MG e HCl 20 MG Lidocaine Lidocaine No Lidocaine Omeprazole Omeprazole No 1{capsu QD Omeprazole 10 MG 10 MG le} 10 MG Citalopram Citalopram No QD Citalopram Hydrobromid Hydrobromid Hydrobromi e 40 MG e 40 MG de 40 MG Montelukast Montelukast No Montelukas Sodium 10 Sodium 10 t Sodium MG MG 10 MG Methocarbam Methocarbam No 1{table QD Methocarba ol 750 MG ol 750 MG t} mol 750 MG Mupirocin Mupirocin No Mupirocin traMADol traMADol No traMADol HCl 50 MG HCl 50 MG HCl 50 MG Vitamin D3 Vitamin D3 No 1{capsu Vitamin D3 01492 UNIT 37843 UNIT le} 30271 UNIT Ondansetron Ondansetron No Ondansetro HCl HCl n HCl Pregabalin Pregabalin No Pregabalin 75 MG 75 MG 75 MG rOPINIRole rOPINIRole No rOPINIRole HCl 4 MG HCl 4 MG HCl 4 MG Estrace 0.1 Estrace 0.1 No Estrace MG/GM MG/GM 0.1 MG/GM HYDROcodone HYDROcodone No HYDROcodon -Acetaminop -Acetaminop e-Acetamin hen 7.5-325 hen 7.5-325 ophen MG MG 7.5-325 MG predniSONE predniSONE No QD predniSONE 10 MG 10 MG 10 MG Azelastine- Azelastine- No 1{spray BID Azelastine Fluticasone Fluticasone _in_eac -Fluticaso 137-50 137-50 h_nostr ne 137-50 MCG/ACT MCG/ACT il} MCG/ACT Famotidine Famotidine No Famotidine 20 MG 20 MG 20 MG Benzonatate Benzonatate No 1{capsu TID Benzonatat 200 MG 200 MG le} e 200 MG rOPINIRole rOPINIRole No rOPINIRole HCl 3 MG HCl 3 MG HCl 3 MG Dicyclomine Dicyclomine No Dicyclomin HCl 20 MG HCl 20 MG e HCl 20 MG Lidocaine Lidocaine No Lidocaine Omeprazole Omeprazole No 1{capsu QD Omeprazole 10 MG 10 MG le} 10 MG Citalopram Citalopram No QD Citalopram Hydrobromid Hydrobromid Hydrobromi e 40 MG e 40 MG de 40 MG Montelukast Montelukast No Montelukas Sodium 10 Sodium 10 t Sodium MG MG 10 MG Methocarbam Methocarbam No 1{table QD Methocarba ol 750 MG ol 750 MG t} mol 750 MG Mupirocin Mupirocin No Mupirocin traMADol traMADol No traMADol HCl 50 MG HCl 50 MG HCl 50 MG Vitamin D3 Vitamin D3 No 1{capsu Vitamin D3 51729 UNIT 92000 UNIT le} 05498 UNIT Ondansetron Ondansetron No Ondansetro HCl HCl n HCl Pregabalin Pregabalin No Pregabalin 75 MG 75 MG 75 MG rOPINIRole rOPINIRole No rOPINIRole HCl 4 MG HCl 4 MG HCl 4 MG Estrace 0.1 Estrace 0.1 No Estrace MG/GM MG/GM 0.1 MG/GM HYDROcodone HYDROcodone No HYDROcodon -Acetaminop -Acetaminop e-Acetamin hen 7.5-325 hen 7.5-325 ophen MG MG 7.5-325 MG predniSONE predniSONE No QD predniSONE 10 MG 10 MG 10 MG Citalopram Citalopram No QD Citalopram Hydrobromid Hydrobromid Hydrobromi e 40 MG e 40 MG de 40 MG rOPINIRole rOPINIRole No QD rOPINIRole HCl 4 MG HCl 4 MG HCl 4 MG Pregabalin Pregabalin No Pregabalin 75 MG 75 MG 75 MG Vitamin D3 Vitamin D3 No 1{capsu Vitamin D3 23366 UNIT 88424 UNIT le} 87126 UNIT Lidocaine Lidocaine No Lidocaine Famotidine Famotidine No Famotidine 20 MG 20 MG 20 MG traMADol traMADol No traMADol HCl 50 MG HCl 50 MG HCl 50 MG Montelukast Montelukast No Montelukas Sodium 10 Sodium 10 t Sodium MG MG 10 MG rOPINIRole rOPINIRole No rOPINIRole HCl 3 MG HCl 3 MG HCl 3 MG Mupirocin Mupirocin No Mupirocin HYDROcodone HYDROcodone No HYDROcodon -Acetaminop -Acetaminop e-Acetamin hen 7.5-325 hen 7.5-325 ophen MG MG 7.5-325 MG Ondansetron Ondansetron No Ondansetro HCl HCl n HCl predniSONE predniSONE No QD predniSONE 10 MG 10 MG 10 MG Dicyclomine Dicyclomine No Dicyclomin HCl 20 MG HCl 20 MG e HCl 20 MG Methocarbam Methocarbam No 1{table QD Methocarba ol 750 MG ol 750 MG t} mol 750 MG Citalopram Citalopram No 1{table QD Citalopram Hydrobromid Hydrobromid t} Hydrobromi e 40 MG e 40 MG de 40 MG rOPINIRole rOPINIRole No rOPINIRole HCl 4 MG HCl 4 MG HCl 4 MG Azelastine- Azelastine- No 1{spray BID Azelastine Fluticasone Fluticasone _in_eac -Fluticaso 137-50 137-50 h_nostr ne 137-50 MCG/ACT MCG/ACT il} MCG/ACT Estrace 0.1 Estrace 0.1 No Estrace MG/GM MG/GM 0.1 MG/GM Omeprazole Omeprazole No 1{capsu QD Omeprazole 10 MG 10 MG le} 10 MG Benzonatate Benzonatate No 1{capsu TID Benzonatat 200 MG 200 MG le} e 200 MG rOPINIRole rOPINIRole No rOPINIRole HCl 3 MG HCl 3 MG HCl 3 MG Famotidine Famotidine No Famotidine 20 MG 20 MG 20 MG Estrace 0.1 Estrace 0.1 No Estrace MG/GM MG/GM 0.1 MG/GM Lidocaine Lidocaine No Lidocaine HYDROcodone HYDROcodone No HYDROcodon -Acetaminop -Acetaminop e-Acetamin hen 7.5-325 hen 7.5-325 ophen MG MG 7.5-325 MG HYDROcodone HYDROcodone No HYDROcodon -Acetaminop -Acetaminop e-Acetamin hen 7.5-325 hen 7.5-325 ophen MG MG 7.5-325 MG Citalopram Citalopram No 1{table QD Citalopram Hydrobromid Hydrobromid t} Hydrobromi e 40 MG e 40 MG de 40 MG Montelukast Montelukast No Montelukas Sodium 10 Sodium 10 t Sodium MG MG 10 MG Pregabalin Pregabalin No Pregabalin 75 MG 75 MG 75 MG rOPINIRole rOPINIRole No rOPINIRole HCl 3 MG HCl 3 MG HCl 3 MG Ondansetron Ondansetron No Ondansetro HCl HCl n HCl Vitamin D3 Vitamin D3 No 1{capsu Vitamin D3 37026 UNIT 94832 UNIT le} 58383 UNIT CeleBREX CeleBREX No 1{capsu QD CeleBREX 200 MG 200 MG le_with 200 MG _food} Azelastine- Azelastine- No 1{spray BID Azelastine Fluticasone Fluticasone _in_eac -Fluticaso 137-50 137-50 h_nostr ne 137-50 MCG/ACT MCG/ACT il} MCG/ACT Mupirocin Mupirocin No Mupirocin Famotidine Famotidine No Famotidine 20 MG 20 MG 20 MG Methocarbam Methocarbam No 1{table QD Methocarba ol 750 MG ol 750 MG t} mol 750 MG traMADol traMADol No traMADol HCl 50 MG HCl 50 MG HCl 50 MG Benzonatate Benzonatate No 1{capsu TID Benzonatat 200 MG 200 MG le} e 200 MG Dicyclomine Dicyclomine No Dicyclomin HCl 20 MG HCl 20 MG e HCl 20 MG Omeprazole Omeprazole No 1{capsu QD Omeprazole 10 MG 10 MG le} 10 MG Citalopram Citalopram No QD Citalopram Hydrobromid Hydrobromid Hydrobromi e 40 MG e 40 MG de 40 MG rOPINIRole rOPINIRole No rOPINIRole HCl 4 MG HCl 4 MG HCl 4 MG rOPINIRole rOPINIRole No QD rOPINIRole HCl 4 MG HCl 4 MG HCl 4 MG Estrace 0.1 Estrace 0.1 No Estrace MG/GM MG/GM 0.1 MG/GM predniSONE predniSONE No QD predniSONE 10 MG 10 MG 10 MG Methocarbam Methocarbam No 1{table QD Methocarba ol 750 MG ol 750 MG t} mol 750 MG rOPINIRole rOPINIRole No rOPINIRole HCl 4 MG HCl 4 MG HCl 4 MG Azelastine- Azelastine- No 1{spray BID Azelastine Fluticasone Fluticasone _in_eac -Fluticaso 137-50 137-50 h_nostr ne 137-50 MCG/ACT MCG/ACT il} MCG/ACT Citalopram Citalopram No Citalopram Hydrobromid Hydrobromid Hydrobromi e 40 MG e 40 MG de 40 MG predniSONE predniSONE No QD predniSONE 10 MG 10 MG 10 MG Celecoxib Celecoxib No Celecoxib 200 MG 200 MG 200 MG Montelukast Montelukast No Montelukas Sodium 10 Sodium 10 t Sodium MG MG 10 MG Montelukast Montelukast No Montelukas Sodium 10 Sodium 10 t Sodium MG MG 10 MG rOPINIRole rOPINIRole No rOPINIRole HCl 3 MG HCl 3 MG HCl 3 MG Azelastine- Azelastine- No 1{spray BID Azelastine Fluticasone Fluticasone _in_eac -Fluticaso 137-50 137-50 h_nostr ne 137-50 MCG/ACT MCG/ACT il} MCG/ACT Omeprazole Omeprazole No 1{capsu QD Omeprazole 10 MG 10 MG le} 10 MG predniSONE predniSONE No QD predniSONE 10 MG 10 MG 10 MG CeleBREX CeleBREX No 1{capsu QD CeleBREX 200 MG 200 MG le_with 200 MG _food} Benzonatate Benzonatate No 1{capsu TID Benzonatat 200 MG 200 MG le} e 200 MG rOPINIRole rOPINIRole No QD rOPINIRole HCl 4 MG HCl 4 MG HCl 4 MG Vitamin D3 Vitamin D3 No 1{capsu Vitamin D3 71014 UNIT 51873 UNIT le} 77875 UNIT Dicyclomine Dicyclomine No Dicyclomin HCl 20 MG HCl 20 MG e HCl 20 MG Citalopram Citalopram No 1{table QD Citalopram Hydrobromid Hydrobromid t} Hydrobromi e 40 MG e 40 MG de 40 MG traMADol traMADol No traMADol HCl 50 MG HCl 50 MG HCl 50 MG CeleBREX CeleBREX No 1{capsu QD CeleBREX 200 MG 200 MG le_with 200 MG _food} Estrace 0.1 Estrace 0.1 No Estrace MG/GM MG/GM 0.1 MG/GM Citalopram Citalopram No QD Citalopram Hydrobromid Hydrobromid Hydrobromi e 40 MG e 40 MG de 40 MG Dicyclomine Dicyclomine No Dicyclomin HCl 20 MG HCl 20 MG e HCl 20 MG rOPINIRole rOPINIRole No rOPINIRole HCl 4 MG HCl 4 MG HCl 4 MG HYDROcodone HYDROcodone No HYDROcodon -Acetaminop -Acetaminop e-Acetamin hen 7.5-325 hen 7.5-325 ophen MG MG 7.5-325 MG Lidocaine Lidocaine No Lidocaine Famotidine Famotidine No Famotidine 20 MG 20 MG 20 MG Methocarbam Methocarbam No 1{table QD Methocarba ol 750 MG ol 750 MG t} mol 750 MG Pregabalin Pregabalin No Pregabalin 75 MG 75 MG 75 MG Ondansetron Ondansetron No Ondansetro HCl HCl n HCl Mupirocin Mupirocin No Mupirocin Mupirocin Mupirocin No Mupirocin Vitamin D3 Vitamin D3 No 1{capsu Vitamin D3 83550 UNIT 05448 UNIT le} 56728 UNIT Ondansetron Ondansetron No Ondansetro HCl HCl n HCl traMADol traMADol No traMADol HCl 50 MG HCl 50 MG HCl 50 MG Pregabalin Pregabalin No Pregabalin 75 MG 75 MG 75 MG Omeprazole Omeprazole No 1{capsu QD Omeprazole 10 MG 10 MG le} 10 MG Dicyclomine Dicyclomine No Dicyclomin HCl 20 MG HCl 20 MG e HCl 20 MG Citalopram Citalopram No 1{table QD Citalopram Hydrobromid Hydrobromid t} Hydrobromi e 40 MG e 40 MG de 40 MG CeleBREX CeleBREX No 1{capsu QD CeleBREX 200 MG 200 MG le_with 200 MG _food} Methocarbam Methocarbam No 1{table QD Methocarba ol 750 MG ol 750 MG t} mol 750 MG Mupirocin Mupirocin No Mupirocin Lidocaine Lidocaine No Lidocaine Montelukast Montelukast No Montelukas Sodium 10 Sodium 10 t Sodium MG MG 10 MG Omeprazole Omeprazole No 1{capsu QD Omeprazole 10 MG 10 MG le} 10 MG predniSONE predniSONE No QD predniSONE 10 MG 10 MG 10 MG rOPINIRole rOPINIRole No rOPINIRole HCl 3 MG HCl 3 MG HCl 3 MG Pregabalin Pregabalin No Pregabalin 75 MG 75 MG 75 MG Citalopram Citalopram No QD Citalopram Hydrobromid Hydrobromid Hydrobromi e 40 MG e 40 MG de 40 MG Azelastine- Azelastine- No 1{spray BID Azelastine Fluticasone Fluticasone _in_eac -Fluticaso 137-50 137-50 h_nostr ne 137-50 MCG/ACT MCG/ACT il} MCG/ACT Famotidine Famotidine No Famotidine 20 MG 20 MG 20 MG rOPINIRole rOPINIRole No QD rOPINIRole HCl 4 MG HCl 4 MG HCl 4 MG Benzonatate Benzonatate No 1{capsu TID Benzonatat 200 MG 200 MG le} e 200 MG traMADol traMADol No traMADol HCl 50 MG HCl 50 MG HCl 50 MG Vitamin D3 Vitamin D3 No 1{capsu Vitamin D3 20183 UNIT 60792 UNIT le} 42481 UNIT Benzonatate Benzonatate No 1{capsu TID Benzonatat 200 MG 200 MG le} e 200 MG Estrace 0.1 Estrace 0.1 No Estrace MG/GM MG/GM 0.1 MG/GM HYDROcodone HYDROcodone No HYDROcodon -Acetaminop -Acetaminop e-Acetamin hen 7.5-325 hen 7.5-325 ophen MG MG 7.5-325 MG Ondansetron Ondansetron No Ondansetro HCl HCl n HCl rOPINIRole rOPINIRole No rOPINIRole HCl 4 MG HCl 4 MG HCl 4 MG Lidocaine Lidocaine No Lidocaine Omeprazole Omeprazole No 1{capsu QD Omeprazole 10 MG 10 MG le} 10 MG Dicyclomine Dicyclomine No Dicyclomin HCl 20 MG HCl 20 MG e HCl 20 MG Citalopram Citalopram No 1{table QD Citalopram Hydrobromid Hydrobromid t} Hydrobromi e 40 MG e 40 MG de 40 MG CeleBREX CeleBREX No 1{capsu QD CeleBREX 200 MG 200 MG le_with 200 MG _food} Methocarbam Methocarbam No 1{table QD Methocarba ol 750 MG ol 750 MG t} mol 750 MG Mupirocin Mupirocin No Mupirocin Lidocaine Lidocaine No Lidocaine Montelukast Montelukast No Montelukas Sodium 10 Sodium 10 t Sodium MG MG 10 MG predniSONE predniSONE No QD predniSONE 10 MG 10 MG 10 MG rOPINIRole rOPINIRole No rOPINIRole HCl 3 MG HCl 3 MG HCl 3 MG Pregabalin Pregabalin No Pregabalin 75 MG 75 MG 75 MG Citalopram Citalopram No QD Citalopram Hydrobromid Hydrobromid Hydrobromi e 40 MG e 40 MG de 40 MG Azelastine- Azelastine- No 1{spray BID Azelastine Fluticasone Fluticasone _in_eac -Fluticaso 137-50 137-50 h_nostr ne 137-50 MCG/ACT MCG/ACT il} MCG/ACT Famotidine Famotidine No Famotidine 20 MG 20 MG 20 MG rOPINIRole rOPINIRole No QD rOPINIRole HCl 4 MG HCl 4 MG HCl 4 MG Benzonatate Benzonatate No 1{capsu TID Benzonatat 200 MG 200 MG le} e 200 MG traMADol traMADol No traMADol HCl 50 MG HCl 50 MG HCl 50 MG Vitamin D3 Vitamin D3 No 1{capsu Vitamin D3 91266 UNIT 04704 UNIT le} 77480 UNIT Estrace 0.1 Estrace 0.1 No Estrace MG/GM MG/GM 0.1 MG/GM HYDROcodone HYDROcodone No HYDROcodon -Acetaminop -Acetaminop e-Acetamin hen 7.5-325 hen 7.5-325 ophen MG MG 7.5-325 MG Ondansetron Ondansetron No Ondansetro HCl HCl n HCl rOPINIRole rOPINIRole No rOPINIRole HCl 4 MG HCl 4 MG HCl 4 MG Omeprazole Omeprazole No 1{capsu QD Omeprazole 10 MG 10 MG le} 10 MG Dicyclomine Dicyclomine No Dicyclomin HCl 20 MG HCl 20 MG e HCl 20 MG Citalopram Citalopram No 1{table QD Citalopram Hydrobromid Hydrobromid t} Hydrobromi e 40 MG e 40 MG de 40 MG CeleBREX CeleBREX No 1{capsu QD CeleBREX 200 MG 200 MG le_with 200 MG _food} Methocarbam Methocarbam No 1{table QD Methocarba ol 750 MG ol 750 MG t} mol 750 MG Mupirocin Mupirocin No Mupirocin Lidocaine Lidocaine No Lidocaine Montelukast Montelukast No Montelukas Sodium 10 Sodium 10 t Sodium MG MG 10 MG predniSONE predniSONE No QD predniSONE 10 MG 10 MG 10 MG rOPINIRole rOPINIRole No rOPINIRole HCl 3 MG HCl 3 MG HCl 3 MG Pregabalin Pregabalin No Pregabalin 75 MG 75 MG 75 MG Citalopram Citalopram No QD Citalopram Hydrobromid Hydrobromid Hydrobromi e 40 MG e 40 MG de 40 MG Azelastine- Azelastine- No 1{spray BID Azelastine Fluticasone Fluticasone _in_eac -Fluticaso 137-50 137-50 h_nostr ne 137-50 MCG/ACT MCG/ACT il} MCG/ACT Famotidine Famotidine No Famotidine 20 MG 20 MG 20 MG rOPINIRole rOPINIRole No QD rOPINIRole HCl 4 MG HCl 4 MG HCl 4 MG Benzonatate Benzonatate No 1{capsu TID Benzonatat 200 MG 200 MG le} e 200 MG traMADol traMADol No traMADol HCl 50 MG HCl 50 MG HCl 50 MG Vitamin D3 Vitamin D3 No 1{capsu Vitamin D3 90585 UNIT 96227 UNIT le} 10324 UNIT Estrace 0.1 Estrace 0.1 No Estrace MG/GM MG/GM 0.1 MG/GM HYDROcodone HYDROcodone No HYDROcodon -Acetaminop -Acetaminop e-Acetamin hen 7.5-325 hen 7.5-325 ophen MG MG 7.5-325 MG Ondansetron Ondansetron No Ondansetro HCl HCl n HCl rOPINIRole rOPINIRole No rOPINIRole HCl 4 MG HCl 4 MG HCl 4 MG Famotidine Famotidine No Famotidine 20 MG 20 MG 20 MG Pregabalin Pregabalin No Pregabalin 75 MG 75 MG 75 MG Vitamin D3 Vitamin D3 No 1{capsu Vitamin D3 50034 UNIT 14200 UNIT le} 58889 UNIT Ondansetron Ondansetron No Ondansetro HCl HCl n HCl Omeprazole Omeprazole No 1{capsu QD Omeprazole 10 MG 10 MG le} 10 MG rOPINIRole rOPINIRole No QD rOPINIRole HCl 4 MG HCl 4 MG HCl 4 MG Methocarbam Methocarbam No 1{table QD Methocarba ol 750 MG ol 750 MG t} mol 750 MG rOPINIRole rOPINIRole No rOPINIRole HCl 3 MG HCl 3 MG HCl 3 MG Benzonatate Benzonatate No 1{capsu TID Benzonatat 200 MG 200 MG le} e 200 MG traMADol traMADol No traMADol HCl 50 MG HCl 50 MG HCl 50 MG Citalopram Citalopram No 1{table QD Citalopram Hydrobromid Hydrobromid t} Hydrobromi e 40 MG e 40 MG de 40 MG predniSONE predniSONE No QD predniSONE 10 MG 10 MG 10 MG CeleBREX CeleBREX No 1{capsu QD CeleBREX 200 MG 200 MG le_with 200 MG _food} Estrace 0.1 Estrace 0.1 No Estrace MG/GM MG/GM 0.1 MG/GM Mupirocin Mupirocin No Mupirocin Montelukast Montelukast No Montelukas Sodium 10 Sodium 10 t Sodium MG MG 10 MG rOPINIRole rOPINIRole No rOPINIRole HCl 4 MG HCl 4 MG HCl 4 MG HYDROcodone HYDROcodone No HYDROcodon -Acetaminop -Acetaminop e-Acetamin hen 7.5-325 hen 7.5-325 ophen MG MG 7.5-325 MG Azelastine- Azelastine- No 1{spray BID Azelastine Fluticasone Fluticasone _in_eac -Fluticaso 137-50 137-50 h_nostr ne 137-50 MCG/ACT MCG/ACT il} MCG/ACT Dicyclomine Dicyclomine No Dicyclomin HCl 20 MG HCl 20 MG e HCl 20 MG Citalopram Citalopram No QD Citalopram Hydrobromid Hydrobromid Hydrobromi e 40 MG e 40 MG de 40 MG Lidocaine Lidocaine No Lidocaine predniSONE predniSONE No QD predniSONE 10 MG 10 MG 10 MG Vitamin D3 Vitamin D3 No 1{capsu Vitamin D3 65443 UNIT 24326 UNIT le} 08500 UNIT Citalopram Citalopram No QD Citalopram Hydrobromid Hydrobromid Hydrobromi e 40 MG e 40 MG de 40 MG CeleBREX CeleBREX No 1{capsu QD CeleBREX 200 MG 200 MG le_with 200 MG _food} Azelastine- Azelastine- No 1{spray BID Azelastine Fluticasone Fluticasone _in_eac -Fluticaso 137-50 137-50 h_nostr ne 137-50 MCG/ACT MCG/ACT il} MCG/ACT HYDROcodone HYDROcodone No HYDROcodon -Acetaminop -Acetaminop e-Acetamin hen 7.5-325 hen 7.5-325 ophen MG MG 7.5-325 MG Methocarbam Methocarbam No 1{table QD Methocarba ol 750 MG ol 750 MG t} mol 750 MG Omeprazole Omeprazole No 1{capsu QD Omeprazole 10 MG 10 MG le} 10 MG Pregabalin Pregabalin No Pregabalin 75 MG 75 MG 75 MG Estrace 0.1 Estrace 0.1 No Estrace MG/GM MG/GM 0.1 MG/GM rOPINIRole rOPINIRole No rOPINIRole HCl 4 MG HCl 4 MG HCl 4 MG Citalopram Citalopram No 1{table QD Citalopram Hydrobromid Hydrobromid t} Hydrobromi e 40 MG e 40 MG de 40 MG rOPINIRole rOPINIRole No QD rOPINIRole HCl 4 MG HCl 4 MG HCl 4 MG traMADol traMADol No traMADol HCl 50 MG HCl 50 MG HCl 50 MG Benzonatate Benzonatate No 1{capsu TID Benzonatat 200 MG 200 MG le} e 200 MG Famotidine Famotidine No Famotidine 20 MG 20 MG 20 MG Mupirocin Mupirocin No Mupirocin Ondansetron Ondansetron No Ondansetro HCl HCl n HCl rOPINIRole rOPINIRole No rOPINIRole HCl 3 MG HCl 3 MG HCl 3 MG Dicyclomine Dicyclomine No Dicyclomin HCl 20 MG HCl 20 MG e HCl 20 MG Lidocaine Lidocaine No Lidocaine Montelukast Montelukast No Montelukas Sodium 10 Sodium 10 t Sodium MG MG 10 MG predniSONE predniSONE No QD predniSONE 10 MG 10 MG 10 MG Vitamin D3 Vitamin D3 No 1{capsu Vitamin D3 16627 UNIT [id number] UNIT le} [id number] UNIT Citalopram Citalopram No QD Citalopram Hydrobromid Hydrobromid Hydrobromi e 40 MG e 40 MG de 40 MG CeleBREX CeleBREX No 1{capsu QD CeleBREX 200 MG 200 MG le_with 200 MG _food} Azelastine- Azelastine- No 1{spray BID Azelastine Fluticasone Fluticasone _in_eac -Fluticaso 137-50 137-50 h_nostr ne 137-50 MCG/ACT MCG/ACT il} MCG/ACT HYDROcodone HYDROcodone No HYDROcodon -Acetaminop -Acetaminop e-Acetamin hen 7.5-325 hen 7.5-325 ophen MG MG 7.5-325 MG Methocarbam Methocarbam No 1{table QD Methocarba ol 750 MG ol 750 MG t} mol 750 MG Omeprazole Omeprazole No 1{capsu QD Omeprazole 10 MG 10 MG le} 10 MG Pregabalin Pregabalin No Pregabalin 75 MG 75 MG 75 MG Estrace 0.1 Estrace 0.1 No Estrace MG/GM MG/GM 0.1 MG/GM rOPINIRole rOPINIRole No rOPINIRole HCl 4 MG HCl 4 MG HCl 4 MG Citalopram Citalopram No 1{table QD Citalopram Hydrobromid Hydrobromid t} Hydrobromi e 40 MG e 40 MG de 40 MG rOPINIRole rOPINIRole No QD rOPINIRole HCl 4 MG HCl 4 MG HCl 4 MG traMADol traMADol No traMADol HCl 50 MG HCl 50 MG HCl 50 MG Benzonatate Benzonatate No 1{capsu TID Benzonatat 200 MG 200 MG le} e 200 MG Famotidine Famotidine No Famotidine 20 MG 20 MG 20 MG Mupirocin Mupirocin No Mupirocin Ondansetron Ondansetron No Ondansetro HCl HCl n HCl rOPINIRole rOPINIRole No rOPINIRole HCl 3 MG HCl 3 MG HCl 3 MG Dicyclomine Dicyclomine No Dicyclomin HCl 20 MG HCl 20 MG e HCl 20 MG Lidocaine Lidocaine No Lidocaine Montelukast Montelukast No Montelukas Sodium 10 Sodium 10 t Sodium MG MG 10 MG Ondansetron Ondansetron No Ondansetro HCl HCl n HCl CeleBREX CeleBREX No 1{capsu QD CeleBREX 200 MG 200 MG le_with 200 MG _food} Methocarbam Methocarbam No 1{table QD Methocarba ol 750 MG ol 750 MG t} mol 750 MG HYDROcodone HYDROcodone No HYDROcodon -Acetaminop -Acetaminop e-Acetamin hen 7.5-325 hen 7.5-325 ophen MG MG 7.5-325 MG Montelukast Montelukast No Montelukas Sodium 10 Sodium 10 t Sodium MG MG 10 MG traMADol traMADol No traMADol HCl 50 MG HCl 50 MG HCl 50 MG predniSONE predniSONE No QD predniSONE 10 MG 10 MG 10 MG rOPINIRole rOPINIRole No rOPINIRole HCl 4 MG HCl 4 MG HCl 4 MG Mupirocin Mupirocin No Mupirocin Famotidine Famotidine No Famotidine 20 MG 20 MG 20 MG Dicyclomine Dicyclomine No Dicyclomin HCl 20 MG HCl 20 MG e HCl 20 MG Citalopram Citalopram No Citalopram Hydrobromid Hydrobromid Hydrobromi e 40 MG e 40 MG de 40 MG Celecoxib Celecoxib No Celecoxib 200 MG 200 MG 200 MG Omeprazole Omeprazole No 1{capsu QD Omeprazole 10 MG 10 MG le} 10 MG Lidocaine Lidocaine No Lidocaine Estrace 0.1 Estrace 0.1 No Estrace MG/GM MG/GM 0.1 MG/GM Benzonatate Benzonatate No 1{capsu TID Benzonatat 200 MG 200 MG le} e 200 MG Pregabalin Pregabalin No Pregabalin 75 MG 75 MG 75 MG Azelastine- Azelastine- No 1{spray BID Azelastine Fluticasone Fluticasone _in_eac -Fluticaso 137-50 137-50 h_nostr ne 137-50 MCG/ACT MCG/ACT il} MCG/ACT rOPINIRole rOPINIRole No rOPINIRole HCl 3 MG HCl 3 MG HCl 3 MG Vitamin D3 Vitamin D3 No 1{capsu Vitamin D3 63313 UNIT 71851 UNIT le} 66445 UNIT Ondansetron Ondansetron No Ondansetro HCl HCl n HCl CeleBREX CeleBREX No 1{capsu QD CeleBREX 200 MG 200 MG le_with 200 MG _food} Methocarbam Methocarbam No 1{table QD Methocarba ol 750 MG ol 750 MG t} mol 750 MG HYDROcodone HYDROcodone No HYDROcodon -Acetaminop -Acetaminop e-Acetamin hen 7.5-325 hen 7.5-325 ophen MG MG 7.5-325 MG Montelukast Montelukast No Montelukas Sodium 10 Sodium 10 t Sodium MG MG 10 MG traMADol traMADol No traMADol HCl 50 MG HCl 50 MG HCl 50 MG predniSONE predniSONE No QD predniSONE 10 MG 10 MG 10 MG rOPINIRole rOPINIRole No rOPINIRole HCl 4 MG HCl 4 MG HCl 4 MG Mupirocin Mupirocin No Mupirocin Famotidine Famotidine No Famotidine 20 MG 20 MG 20 MG Dicyclomine Dicyclomine No Dicyclomin HCl 20 MG HCl 20 MG e HCl 20 MG Citalopram Citalopram No Citalopram Hydrobromid Hydrobromid Hydrobromi e 40 MG e 40 MG de 40 MG Celecoxib Celecoxib No Celecoxib 200 MG 200 MG 200 MG Omeprazole Omeprazole No 1{capsu QD Omeprazole 10 MG 10 MG le} 10 MG Lidocaine Lidocaine No Lidocaine Estrace 0.1 Estrace 0.1 No Estrace MG/GM MG/GM 0.1 MG/GM Benzonatate Benzonatate No 1{capsu TID Benzonatat 200 MG 200 MG le} e 200 MG Pregabalin Pregabalin No Pregabalin 75 MG 75 MG 75 MG Azelastine- Azelastine- No 1{spray BID Azelastine Fluticasone Fluticasone _in_eac -Fluticaso 137-50 137-50 h_nostr ne 137-50 MCG/ACT MCG/ACT il} MCG/ACT rOPINIRole rOPINIRole No rOPINIRole HCl 3 MG HCl 3 MG HCl 3 MG Vitamin D3 Vitamin D3 No 1{capsu Vitamin D3 46348 UNIT 66975 UNIT le} 44060 UNIT HYDROcodone HYDROcodone No HYDROcodon -Acetaminop -Acetaminop e-Acetamin hen 7.5-325 hen 7.5-325 ophen MG MG 7.5-325 MG Ondansetron Ondansetron No Ondansetro HCl HCl n HCl CeleBREX CeleBREX No 1{capsu QD CeleBREX 200 MG 200 MG le_with 200 MG _food} Mupirocin Mupirocin No Mupirocin Famotidine Famotidine No Famotidine 20 MG 20 MG 20 MG Estrace 0.1 Estrace 0.1 No Estrace MG/GM MG/GM 0.1 MG/GM Pregabalin Pregabalin No Pregabalin 75 MG 75 MG 75 MG Montelukast Montelukast No Montelukas Sodium 10 Sodium 10 t Sodium MG MG 10 MG Celecoxib Celecoxib No Celecoxib 200 MG 200 MG 200 MG Omeprazole Omeprazole No 1{capsu QD Omeprazole 10 MG 10 MG le} 10 MG rOPINIRole rOPINIRole No rOPINIRole HCl 4 MG HCl 4 MG HCl 4 MG predniSONE predniSONE No QD predniSONE 10 MG 10 MG 10 MG rOPINIRole rOPINIRole No rOPINIRole HCl 3 MG HCl 3 MG HCl 3 MG Methocarbam Methocarbam No 1{table QD Methocarba ol 750 MG ol 750 MG t} mol 750 MG Vitamin D3 Vitamin D3 No 1{capsu Vitamin D3 98783 UNIT 93383 UNIT le} 92976 UNIT Azelastine- Azelastine- No 1{spray BID Azelastine Fluticasone Fluticasone _in_eac -Fluticaso 137-50 137-50 h_nostr ne 137-50 MCG/ACT MCG/ACT il} MCG/ACT traMADol traMADol No traMADol HCl 50 MG HCl 50 MG HCl 50 MG Lidocaine Lidocaine No Lidocaine Dicyclomine Dicyclomine No Dicyclomin HCl 20 MG HCl 20 MG e HCl 20 MG Citalopram Citalopram No Citalopram Hydrobromid Hydrobromid Hydrobromi e 40 MG e 40 MG de 40 MG Benzonatate Benzonatate No 1{capsu TID Benzonatat 200 MG 200 MG le} e 200 MG Vitamin D3 Vitamin D3 No 1{capsu Vitamin D3 98521 UNIT 44164 UNIT le} 02285 UNIT Mupirocin Mupirocin No Mupirocin Ondansetron Ondansetron No Ondansetro HCl HCl n HCl Celecoxib Celecoxib No 1{capsu QD Celecoxib 200 MG 200 MG le_with 200 MG _food} HYDROcodone HYDROcodone No HYDROcodon -Acetaminop -Acetaminop e-Acetamin hen 7.5-325 hen 7.5-325 ophen MG MG 7.5-325 MG Ondansetron Ondansetron No Ondansetro HCl HCl n HCl CeleBREX CeleBREX No 1{capsu QD CeleBREX 200 MG 200 MG le_with 200 MG _food} Mupirocin Mupirocin No Mupirocin Famotidine Famotidine No Famotidine 20 MG 20 MG 20 MG Estrace 0.1 Estrace 0.1 No Estrace MG/GM MG/GM 0.1 MG/GM Pregabalin Pregabalin No Pregabalin 75 MG 75 MG 75 MG Montelukast Montelukast No Montelukas Sodium 10 Sodium 10 t Sodium MG MG 10 MG rOPINIRole rOPINIRole No rOPINIRole HCl 3 MG HCl 3 MG HCl 3 MG Celecoxib Celecoxib No Celecoxib 200 MG 200 MG 200 MG Omeprazole Omeprazole No 1{capsu QD Omeprazole 10 MG 10 MG le} 10 MG rOPINIRole rOPINIRole No rOPINIRole HCl 4 MG HCl 4 MG HCl 4 MG predniSONE predniSONE No QD predniSONE 10 MG 10 MG 10 MG rOPINIRole rOPINIRole No rOPINIRole HCl 3 MG HCl 3 MG HCl 3 MG Methocarbam Methocarbam No 1{table QD Methocarba ol 750 MG ol 750 MG t} mol 750 MG Vitamin D3 Vitamin D3 No 1{capsu Vitamin D3 76034 UNIT 07631 UNIT le} 35977 UNIT Azelastine- Azelastine- No 1{spray BID Azelastine Fluticasone Fluticasone _in_eac -Fluticaso 137-50 137-50 h_nostr ne 137-50 MCG/ACT MCG/ACT il} MCG/ACT traMADol traMADol No traMADol HCl 50 MG HCl 50 MG HCl 50 MG Lidocaine Lidocaine No Lidocaine Dicyclomine Dicyclomine No Dicyclomin HCl 20 MG HCl 20 MG e HCl 20 MG Citalopram Citalopram No Citalopram Hydrobromid Hydrobromid Hydrobromi e 40 MG e 40 MG de 40 MG Benzonatate Benzonatate No 1{capsu TID Benzonatat 200 MG 200 MG le} e 200 MG HYDROcodone HYDROcodone No HYDROcodon -Acetaminop -Acetaminop e-Acetamin hen 7.5-325 hen 7.5-325 ophen MG MG 7.5-325 MG predniSONE predniSONE No QD predniSONE 10 MG 10 MG 10 MG Pregabalin Pregabalin No Pregabalin 75 MG 75 MG 75 MG Azelastine- Azelastine- No 1{spray BID Azelastine Fluticasone Fluticasone _in_eac -Fluticaso 137-50 137-50 h_nostr ne 137-50 MCG/ACT MCG/ACT il} MCG/ACT rOPINIRole rOPINIRole No rOPINIRole HCl 4 MG HCl 4 MG HCl 4 MG Dicyclomine Dicyclomine No Dicyclomin HCl 20 MG HCl 20 MG e HCl 20 MG Omeprazole Omeprazole No 1{capsu QD Omeprazole 10 MG 10 MG le} 10 MG Estrace 0.1 Estrace 0.1 No Estrace MG/GM MG/GM 0.1 MG/GM Mupirocin Mupirocin No Mupirocin Montelukast Montelukast No Montelukas Sodium 10 Sodium 10 t Sodium MG MG 10 MG Ondansetron Ondansetron No Ondansetro HCl HCl n HCl rOPINIRole rOPINIRole No rOPINIRole HCl 4 MG HCl 4 MG HCl 4 MG Dicyclomine Dicyclomine No Dicyclomin HCl 20 MG HCl 20 MG e HCl 20 MG rOPINIRole rOPINIRole No rOPINIRole HCl 3 MG HCl 3 MG HCl 3 MG Lidocaine Lidocaine No Lidocaine Celecoxib Celecoxib No Celecoxib 200 MG 200 MG 200 MG Benzonatate Benzonatate No 1{capsu TID Benzonatat 200 MG 200 MG le} e 200 MG Citalopram Citalopram No Citalopram Hydrobromid Hydrobromid Hydrobromi e 40 MG e 40 MG de 40 MG Vitamin D3 Vitamin D3 No 1{capsu Vitamin D3 93085 UNIT 87912 UNIT le} 34885 UNIT traMADol traMADol No traMADol HCl 50 MG HCl 50 MG HCl 50 MG Famotidine Famotidine No Famotidine 20 MG 20 MG 20 MG HYDROcodone HYDROcodone No HYDROcodon -Acetaminop -Acetaminop e-Acetamin hen 7.5-325 hen 7.5-325 ophen MG MG 7.5-325 MG CeleBREX CeleBREX No 1{capsu QD CeleBREX 200 MG 200 MG le_with 200 MG _food} predniSONE predniSONE No QD predniSONE 10 MG 10 MG 10 MG Pregabalin Pregabalin No Pregabalin 75 MG 75 MG 75 MG Azelastine- Azelastine- No 1{spray BID Azelastine Fluticasone Fluticasone _in_eac -Fluticaso 137-50 137-50 h_nostr ne 137-50 MCG/ACT MCG/ACT il} MCG/ACT Citalopram Citalopram No Citalopram Hydrobromid Hydrobromid Hydrobromi e 40 MG e 40 MG de 40 MG Methocarbam Methocarbam No 1{table QD Methocarba ol 750 MG ol 750 MG t} mol 750 MG Methocarbam Methocarbam No 1{table QD Methocarba ol 750 MG ol 750 MG t} mol 750 MG Omeprazole Omeprazole No 1{capsu QD Omeprazole 10 MG 10 MG le} 10 MG traMADol traMADol No traMADol HCl 50 MG HCl 50 MG HCl 50 MG Benzonatate Benzonatate No 1{capsu TID Benzonatat 200 MG 200 MG le} e 200 MG Citalopram Citalopram No 1{table QD Citalopram Hydrobromid Hydrobromid t} Hydrobromi e 40 MG e 40 MG de 40 MG Estrace 0.1 Estrace 0.1 No Estrace MG/GM MG/GM 0.1 MG/GM Montelukast Montelukast No Montelukas Sodium 10 Sodium 10 t Sodium MG MG 10 MG Famotidine Famotidine No Famotidine 20 MG 20 MG 20 MG Lidocaine Lidocaine No Lidocaine Estrace 0.1 Estrace 0.1 No Estrace MG/GM MG/GM 0.1 MG/GM Mupirocin Mupirocin No Mupirocin Montelukast Montelukast No Montelukas Sodium 10 Sodium 10 t Sodium MG MG 10 MG Ondansetron Ondansetron No Ondansetro HCl HCl n HCl rOPINIRole rOPINIRole No rOPINIRole HCl 4 MG HCl 4 MG HCl 4 MG Dicyclomine Dicyclomine No Dicyclomin HCl 20 MG HCl 20 MG e HCl 20 MG rOPINIRole rOPINIRole No rOPINIRole HCl 3 MG HCl 3 MG HCl 3 MG Lidocaine Lidocaine No Lidocaine Celecoxib Celecoxib No Celecoxib 200 MG 200 MG 200 MG Benzonatate Benzonatate No 1{capsu TID Benzonatat 200 MG 200 MG le} e 200 MG Vitamin D3 Vitamin D3 No 1{capsu Vitamin D3 94934 UNIT 99930 UNIT le} 65770 UNIT traMADol traMADol No traMADol HCl 50 MG HCl 50 MG HCl 50 MG Famotidine Famotidine No Famotidine 20 MG 20 MG 20 MG HYDROcodone HYDROcodone No HYDROcodon -Acetaminop -Acetaminop e-Acetamin hen 7.5-325 hen 7.5-325 ophen MG MG 7.5-325 MG CeleBREX CeleBREX No 1{capsu QD CeleBREX 200 MG 200 MG le_with 200 MG _food} predniSONE predniSONE No QD predniSONE 10 MG 10 MG 10 MG Pregabalin Pregabalin No Pregabalin 75 MG 75 MG 75 MG Azelastine- Azelastine- No 1{spray BID Azelastine Fluticasone Fluticasone _in_eac -Fluticaso 137-50 137-50 h_nostr ne 137-50 MCG/ACT MCG/ACT il} MCG/ACT Citalopram Citalopram No Citalopram Hydrobromid Hydrobromid Hydrobromi e 40 MG e 40 MG de 40 MG Methocarbam Methocarbam No 1{table QD Methocarba ol 750 MG ol 750 MG t} mol 750 MG Omeprazole Omeprazole No 1{capsu QD Omeprazole 10 MG 10 MG le} 10 MG rOPINIRole rOPINIRole No rOPINIRole HCl 3 MG HCl 3 MG HCl 3 MG Famotidine Famotidine No Famotidine 20 MG 20 MG 20 MG Estrace 0.1 Estrace 0.1 No Estrace MG/GM MG/GM 0.1 MG/GM HYDROcodone HYDROcodone No HYDROcodon -Acetaminop -Acetaminop e-Acetamin hen 7.5-325 hen 7.5-325 ophen MG MG 7.5-325 MG Methocarbam Methocarbam No 1{table QD Methocarba ol 750 MG ol 750 MG t} mol 750 MG rOPINIRole rOPINIRole No rOPINIRole HCl 4 MG HCl 4 MG HCl 4 MG Azelastine- Azelastine- No 1{spray BID Azelastine Fluticasone Fluticasone _in_eac -Fluticaso 137-50 137-50 h_nostr ne 137-50 MCG/ACT MCG/ACT il} MCG/ACT Citalopram Citalopram No Citalopram Hydrobromid Hydrobromid Hydrobromi e 40 MG e 40 MG de 40 MG predniSONE predniSONE No QD predniSONE 10 MG 10 MG 10 MG Celecoxib Celecoxib No Celecoxib 200 MG 200 MG 200 MG Montelukast Montelukast No Montelukas Sodium 10 Sodium 10 t Sodium MG MG 10 MG CeleBREX CeleBREX No 1{capsu QD CeleBREX 200 MG 200 MG le_with 200 MG _food} Dicyclomine Dicyclomine No Dicyclomin HCl 20 MG HCl 20 MG e HCl 20 MG Mupirocin Mupirocin No Mupirocin Vitamin D3 Vitamin D3 No 1{capsu Vitamin D3 01763 UNIT 44081 UNIT le} 55269 UNIT Ondansetron Ondansetron No Ondansetro HCl HCl n HCl traMADol traMADol No traMADol HCl 50 MG HCl 50 MG HCl 50 MG Pregabalin Pregabalin No Pregabalin 75 MG 75 MG 75 MG Omeprazole Omeprazole No 1{capsu QD Omeprazole 10 MG 10 MG le} 10 MG Benzonatate Benzonatate No 1{capsu TID Benzonatat 200 MG 200 MG le} e 200 MG Lidocaine Lidocaine No Lidocaine Omeprazole Omeprazole No 1{capsu QD Omeprazole 10 MG 10 MG le} 10 MG Dicyclomine Dicyclomine No Dicyclomin HCl 20 MG HCl 20 MG e HCl 20 MG Estrace 0.1 Estrace 0.1 No Estrace MG/GM MG/GM 0.1 MG/GM Pregabalin Pregabalin No Pregabalin 75 MG 75 MG 75 MG Celecoxib Celecoxib No Celecoxib 200 MG 200 MG 200 MG Methocarbam Methocarbam No 1{table QD Methocarba ol 750 MG ol 750 MG t} mol 750 MG rOPINIRole rOPINIRole No rOPINIRole HCl 3 MG HCl 3 MG HCl 3 MG traMADol traMADol No traMADol HCl 50 MG HCl 50 MG HCl 50 MG Citalopram Citalopram No Citalopram Hydrobromid Hydrobromid Hydrobromi e 40 MG e 40 MG de 40 MG Mupirocin Mupirocin No Mupirocin Lidocaine Lidocaine No Lidocaine Vitamin D3 Vitamin D3 No 1{capsu Vitamin D3 73762 UNIT 23036 UNIT le} 90392 UNIT Famotidine Famotidine No Famotidine 20 MG 20 MG 20 MG CeleBREX CeleBREX No 1{capsu QD CeleBREX 200 MG 200 MG le_with 200 MG _food} Ondansetron Ondansetron No Ondansetro HCl HCl n HCl HYDROcodone HYDROcodone No HYDROcodon -Acetaminop -Acetaminop e-Acetamin hen 7.5-325 hen 7.5-325 ophen MG MG 7.5-325 MG predniSONE predniSONE No QD predniSONE 10 MG 10 MG 10 MG Montelukast Montelukast No Montelukas Sodium 10 Sodium 10 t Sodium MG MG 10 MG rOPINIRole rOPINIRole No rOPINIRole HCl 4 MG HCl 4 MG HCl 4 MG Benzonatate Benzonatate No 1{capsu TID Benzonatat 200 MG 200 MG le} e 200 MG Azelastine- Azelastine- No 1{spray BID Azelastine Fluticasone Fluticasone _in_eac -Fluticaso 137-50 137-50 h_nostr ne 137-50 MCG/ACT MCG/ACT il} MCG/ACT Omeprazole Omeprazole No 1{capsu QD Omeprazole 10 MG 10 MG le} 10 MG Dicyclomine Dicyclomine No Dicyclomin HCl 20 MG HCl 20 MG e HCl 20 MG Estrace 0.1 Estrace 0.1 No Estrace MG/GM MG/GM 0.1 MG/GM Pregabalin Pregabalin No Pregabalin 75 MG 75 MG 75 MG Celecoxib Celecoxib No Celecoxib 200 MG 200 MG 200 MG Methocarbam Methocarbam No 1{table QD Methocarba ol 750 MG ol 750 MG t} mol 750 MG rOPINIRole rOPINIRole No rOPINIRole HCl 3 MG HCl 3 MG HCl 3 MG traMADol traMADol No traMADol HCl 50 MG HCl 50 MG HCl 50 MG Citalopram Citalopram No Citalopram Hydrobromid Hydrobromid Hydrobromi e 40 MG e 40 MG de 40 MG Mupirocin Mupirocin No Mupirocin Lidocaine Lidocaine No Lidocaine Vitamin D3 Vitamin D3 No 1{capsu Vitamin D3 55074 UNIT 39434 UNIT le} 16205 UNIT Famotidine Famotidine No Famotidine 20 MG 20 MG 20 MG CeleBREX CeleBREX No 1{capsu QD CeleBREX 200 MG 200 MG le_with 200 MG _food} Ondansetron Ondansetron No Ondansetro HCl HCl n HCl HYDROcodone HYDROcodone No HYDROcodon -Acetaminop -Acetaminop e-Acetamin hen 7.5-325 hen 7.5-325 ophen MG MG 7.5-325 MG predniSONE predniSONE No QD predniSONE 10 MG 10 MG 10 MG Montelukast Montelukast No Montelukas Sodium 10 Sodium 10 t Sodium MG MG 10 MG rOPINIRole rOPINIRole No rOPINIRole HCl 4 MG HCl 4 MG HCl 4 MG Benzonatate Benzonatate No 1{capsu TID Benzonatat 200 MG 200 MG le} e 200 MG Azelastine- Azelastine- No 1{spray BID Azelastine Fluticasone Fluticasone _in_eac -Fluticaso 137-50 137-50 h_nostr ne 137-50 MCG/ACT MCG/ACT il} MCG/ACT Lidocaine Lidocaine No Lidocaine Pregabalin Pregabalin No Pregabalin 75 MG 75 MG 75 MG Vitamin D3 Vitamin D3 No 1{capsu Vitamin D3 83591 UNIT 51037 UNIT le} 33044 UNIT Famotidine Famotidine No Famotidine 20 MG 20 MG 20 MG Celecoxib Celecoxib No Celecoxib 200 MG 200 MG 200 MG HYDROcodone HYDROcodone No HYDROcodon -Acetaminop -Acetaminop e-Acetamin hen 7.5-325 hen 7.5-325 ophen MG MG 7.5-325 MG Omeprazole Omeprazole No 1{capsu QD Omeprazole 10 MG 10 MG le} 10 MG Benzonatate Benzonatate No 1{capsu TID Benzonatat 200 MG 200 MG le} e 200 MG Ondansetron Ondansetron No Ondansetro HCl HCl n HCl Mupirocin Mupirocin No Mupirocin Citalopram Citalopram No Citalopram Hydrobromid Hydrobromid Hydrobromi e 40 MG e 40 MG de 40 MG Estrace 0.1 Estrace 0.1 No Estrace MG/GM MG/GM 0.1 MG/GM Montelukast Montelukast No Montelukas Sodium 10 Sodium 10 t Sodium MG MG 10 MG CeleBREX CeleBREX No 1{capsu QD CeleBREX 200 MG 200 MG le_with 200 MG _food} traMADol traMADol No traMADol HCl 50 MG HCl 50 MG HCl 50 MG predniSONE predniSONE No QD predniSONE 10 MG 10 MG 10 MG rOPINIRole rOPINIRole No rOPINIRole HCl 3 MG HCl 3 MG HCl 3 MG Dicyclomine Dicyclomine No Dicyclomin HCl 20 MG HCl 20 MG e HCl 20 MG Methocarbam Methocarbam No 1{table QD Methocarba ol 750 MG ol 750 MG t} mol 750 MG Azelastine- Azelastine- No 1{spray BID Azelastine Fluticasone Fluticasone _in_eac -Fluticaso 137-50 137-50 h_nostr ne 137-50 MCG/ACT MCG/ACT il} MCG/ACT rOPINIRole rOPINIRole No rOPINIRole HCl 4 MG HCl 4 MG HCl 4 MG Vitamin D3 Vitamin D3 No 1{capsu Vitamin D3 68461 UNIT 57588 UNIT le} 60728 UNIT Mupirocin Mupirocin No Mupirocin Ondansetron Ondansetron No Ondansetro HCl HCl n HCl Celecoxib Celecoxib No 1{capsu QD Celecoxib 200 MG 200 MG le_with 200 MG _food} rOPINIRole rOPINIRole No rOPINIRole HCl 3 MG HCl 3 MG HCl 3 MG Lidocaine Lidocaine No Lidocaine Pregabalin Pregabalin No Pregabalin 75 MG 75 MG 75 MG Vitamin D3 Vitamin D3 No 1{capsu Vitamin D3 70485 UNIT 96735 UNIT le} 76708 UNIT Famotidine Famotidine No Famotidine 20 MG 20 MG 20 MG Celecoxib Celecoxib No Celecoxib 200 MG 200 MG 200 MG HYDROcodone HYDROcodone No HYDROcodon -Acetaminop -Acetaminop e-Acetamin hen 7.5-325 hen 7.5-325 ophen MG MG 7.5-325 MG Omeprazole Omeprazole No 1{capsu QD Omeprazole 10 MG 10 MG le} 10 MG Benzonatate Benzonatate No 1{capsu TID Benzonatat 200 MG 200 MG le} e 200 MG Ondansetron Ondansetron No Ondansetro HCl HCl n HCl Mupirocin Mupirocin No Mupirocin Citalopram Citalopram No Citalopram Hydrobromid Hydrobromid Hydrobromi e 40 MG e 40 MG de 40 MG Estrace 0.1 Estrace 0.1 No Estrace MG/GM MG/GM 0.1 MG/GM Montelukast Montelukast No Montelukas Sodium 10 Sodium 10 t Sodium MG MG 10 MG CeleBREX CeleBREX No 1{capsu QD CeleBREX 200 MG 200 MG le_with 200 MG _food} traMADol traMADol No traMADol HCl 50 MG HCl 50 MG HCl 50 MG predniSONE predniSONE No QD predniSONE 10 MG 10 MG 10 MG rOPINIRole rOPINIRole No rOPINIRole HCl 3 MG HCl 3 MG HCl 3 MG HYDROcodone HYDROcodone No HYDROcodon -Acetaminop -Acetaminop e-Acetamin hen 7.5-325 hen 7.5-325 ophen MG MG 7.5-325 MG Dicyclomine Dicyclomine No Dicyclomin HCl 20 MG HCl 20 MG e HCl 20 MG Methocarbam Methocarbam No 1{table QD Methocarba ol 750 MG ol 750 MG t} mol 750 MG Azelastine- Azelastine- No 1{spray BID Azelastine Fluticasone Fluticasone _in_eac -Fluticaso 137-50 137-50 h_nostr ne 137-50 MCG/ACT MCG/ACT il} MCG/ACT rOPINIRole rOPINIRole No rOPINIRole HCl 4 MG HCl 4 MG HCl 4 MG predniSONE predniSONE No QD predniSONE 10 MG 10 MG 10 MG Pregabalin Pregabalin No Pregabalin 75 MG 75 MG 75 MG Azelastine- Azelastine- No 1{spray BID Azelastine Fluticasone Fluticasone _in_eac -Fluticaso 137-50 137-50 h_nostr ne 137-50 MCG/ACT MCG/ACT il} MCG/ACT rOPINIRole rOPINIRole No rOPINIRole HCl 4 MG HCl 4 MG HCl 4 MG Dicyclomine Dicyclomine No Dicyclomin HCl 20 MG HCl 20 MG e HCl 20 MG Omeprazole Omeprazole No 1{capsu QD Omeprazole 10 MG 10 MG le} 10 MG Citalopram Citalopram No Citalopram Hydrobromid Hydrobromid Hydrobromi e 40 MG e 40 MG de 40 MG HYDROcodone HYDROcodone No HYDROcodon -Acetaminop -Acetaminop e-Acetamin hen 7.5-325 hen 7.5-325 ophen MG MG 7.5-325 MG CeleBREX CeleBREX No 1{capsu QD CeleBREX 200 MG 200 MG le_with 200 MG _food} Lidocaine Lidocaine No Lidocaine Dicyclomine Dicyclomine No Dicyclomin HCl 20 MG HCl 20 MG e HCl 20 MG Montelukast Montelukast No Montelukas Sodium 10 Sodium 10 t Sodium MG MG 10 MG Famotidine Famotidine No Famotidine 20 MG 20 MG 20 MG Estrace 0.1 Estrace 0.1 No Estrace MG/GM MG/GM 0.1 MG/GM traMADol traMADol No traMADol HCl 50 MG HCl 50 MG HCl 50 MG Methocarbam Methocarbam No 1{table QD Methocarba ol 750 MG ol 750 MG t} mol 750 MG Methocarbam Methocarbam No 1{table QD Methocarba ol 750 MG ol 750 MG t} mol 750 MG Pregabalin Pregabalin No Pregabalin 75 MG 75 MG 75 MG Benzonatate Benzonatate No 1{capsu TID Benzonatat 200 MG 200 MG le} e 200 MG rOPINIRole rOPINIRole No rOPINIRole HCl 4 MG HCl 4 MG HCl 4 MG predniSONE predniSONE No QD predniSONE 10 MG 10 MG 10 MG Azelastine- Azelastine- No 1{spray BID Azelastine Fluticasone Fluticasone _in_eac -Fluticaso 137-50 137-50 h_nostr ne 137-50 MCG/ACT MCG/ACT il} MCG/ACT Citalopram Citalopram No Citalopram Hydrobromid Hydrobromid Hydrobromi e 40 MG e 40 MG de 40 MG Omeprazole Omeprazole No 1{capsu QD Omeprazole 10 MG 10 MG le} 10 MG Ondansetron Ondansetron No Ondansetro HCl HCl n HCl rOPINIRole rOPINIRole No rOPINIRole HCl 3 MG HCl 3 MG HCl 3 MG traMADol traMADol No traMADol HCl 50 MG HCl 50 MG HCl 50 MG Vitamin D3 Vitamin D3 No 1{capsu Vitamin D3 65873 UNIT 06185 UNIT le} 69012 UNIT Celecoxib Celecoxib No Celecoxib 200 MG 200 MG 200 MG Mupirocin Mupirocin No Mupirocin Benzonatate Benzonatate No 1{capsu TID Benzonatat 200 MG 200 MG le} e 200 MG Citalopram Citalopram No 1{table QD Citalopram Hydrobromid Hydrobromid t} Hydrobromi e 40 MG e 40 MG de 40 MG Estrace 0.1 Estrace 0.1 No Estrace MG/GM MG/GM 0.1 MG/GM Montelukast Montelukast No Montelukas Sodium 10 Sodium 10 t Sodium MG MG 10 MG Famotidine Famotidine No Famotidine 20 MG 20 MG 20 MG Lidocaine Lidocaine No Lidocaine Benzonatate Benzonatate No 1{capsu TID Benzonatat 200 MG 200 MG le} e 200 MG rOPINIRole rOPINIRole No rOPINIRole HCl 4 MG HCl 4 MG HCl 4 MG Methocarbam Methocarbam No 1{table QD Methocarba ol 750 MG ol 750 MG t} mol 750 MG Montelukast Montelukast No Montelukas Sodium 10 Sodium 10 t Sodium MG MG 10 MG Azelastine- Azelastine- No 1{spray BID Azelastine Fluticasone Fluticasone _in_eac -Fluticaso 137-50 137-50 h_nostr ne 137-50 MCG/ACT MCG/ACT il} MCG/ACT Dicyclomine Dicyclomine No Dicyclomin HCl 20 MG HCl 20 MG e HCl 20 MG Ondansetron Ondansetron No Ondansetro HCl HCl n HCl Lidocaine Lidocaine No Lidocaine Mupirocin Mupirocin No Mupirocin Citalopram Citalopram No Citalopram Hydrobromid Hydrobromid Hydrobromi e 40 MG e 40 MG de 40 MG Vitamin D3 Vitamin D3 No 1{capsu Vitamin D3 68435 UNIT 12143 UNIT le} 27869 UNIT rOPINIRole rOPINIRole No rOPINIRole HCl 3 MG HCl 3 MG HCl 3 MG Famotidine Famotidine No Famotidine 20 MG 20 MG 20 MG HYDROcodone HYDROcodone No HYDROcodon -Acetaminop -Acetaminop e-Acetamin hen 7.5-325 hen 7.5-325 ophen MG MG 7.5-325 MG CeleBREX CeleBREX No 1{capsu QD CeleBREX 200 MG 200 MG le_with 200 MG _food} Pregabalin Pregabalin No Pregabalin 75 MG 75 MG 75 MG Celecoxib Celecoxib No Celecoxib 200 MG 200 MG 200 MG predniSONE predniSONE No QD predniSONE 10 MG 10 MG 10 MG Omeprazole Omeprazole No 1{capsu QD Omeprazole 10 MG 10 MG le} 10 MG Estrace 0.1 Estrace 0.1 No Estrace MG/GM MG/GM 0.1 MG/GM traMADol traMADol No traMADol HCl 50 MG HCl 50 MG HCl 50 MG Methocarbam Methocarbam No 1{table QD Methocarba ol 750 MG ol 750 MG t} mol 750 MG Montelukast Montelukast No Montelukas Sodium 10 Sodium 10 t Sodium MG MG 10 MG traMADol traMADol No traMADol HCl 50 MG HCl 50 MG HCl 50 MG Omeprazole Omeprazole No 1{capsu QD Omeprazole 10 MG 10 MG le} 10 MG Ondansetron Ondansetron No Ondansetro HCl HCl n HCl Benzonatate Benzonatate No 1{capsu TID Benzonatat 200 MG 200 MG le} e 200 MG Vitamin D3 Vitamin D3 No 1{capsu Vitamin D3 78610 UNIT 17852 UNIT le} [id number] UNIT Azelastine- Azelastine- No 1{spray BID Azelastine Fluticasone Fluticasone _in_eac -Fluticaso 137-50 137-50 h_nostr ne 137-50 MCG/ACT MCG/ACT il} MCG/ACT rOPINIRole rOPINIRole No rOPINIRole HCl 3 MG HCl 3 MG HCl 3 MG Citalopram Citalopram No Citalopram Hydrobromid Hydrobromid Hydrobromi e 40 MG e 40 MG de 40 MG Estrace 0.1 Estrace 0.1 No Estrace MG/GM MG/GM 0.1 MG/GM HYDROcodone HYDROcodone No HYDROcodon -Acetaminop -Acetaminop e-Acetamin hen 7.5-325 hen 7.5-325 ophen MG MG 7.5-325 MG Dicyclomine Dicyclomine No Dicyclomin HCl 20 MG HCl 20 MG e HCl 20 MG Lidocaine Lidocaine No Lidocaine predniSONE predniSONE No QD predniSONE 10 MG 10 MG 10 MG Famotidine Famotidine No Famotidine 20 MG 20 MG 20 MG Mupirocin Mupirocin No Mupirocin Celecoxib Celecoxib No Celecoxib 200 MG 200 MG 200 MG rOPINIRole rOPINIRole No rOPINIRole HCl 4 MG HCl 4 MG HCl 4 MG CeleBREX CeleBREX No 1{capsu QD CeleBREX 200 MG 200 MG le_with 200 MG _food} Pregabalin Pregabalin No Pregabalin 75 MG 75 MG 75 MG CeleBREX CeleBREX No 1{capsu QD CeleBREX 200 MG 200 MG le_with 200 MG _food} Lidocaine Lidocaine No Lidocaine rOPINIRole rOPINIRole No QD rOPINIRole HCl 4 MG HCl 4 MG HCl 4 MG rOPINIRole rOPINIRole No rOPINIRole HCl 3 MG HCl 3 MG HCl 3 MG Ondansetron Ondansetron No Ondansetro HCl HCl n HCl Pregabalin Pregabalin No Pregabalin 75 MG 75 MG 75 MG Omeprazole Omeprazole No 1{capsu QD Omeprazole 10 MG 10 MG le} 10 MG Famotidine Famotidine No Famotidine 20 MG 20 MG 20 MG Citalopram Citalopram No 1{table QD Citalopram Hydrobromid Hydrobromid t} Hydrobromi e 40 MG e 40 MG de 40 MG Citalopram Citalopram No Citalopram Hydrobromid Hydrobromid Hydrobromi e 40 MG e 40 MG de 40 MG traMADol traMADol No traMADol HCl 50 MG HCl 50 MG HCl 50 MG Celecoxib Celecoxib No Celecoxib 200 MG 200 MG 200 MG Methocarbam Methocarbam No 1{table QD Methocarba ol 750 MG ol 750 MG t} mol 750 MG rOPINIRole rOPINIRole No rOPINIRole HCl 4 MG HCl 4 MG HCl 4 MG Mupirocin Mupirocin No Mupirocin Dicyclomine Dicyclomine No Dicyclomin HCl 20 MG HCl 20 MG e HCl 20 MG Vitamin D3 Vitamin D3 No 1{capsu Vitamin D3 73676 UNIT 30970 UNIT le} 37910 UNIT Estrace 0.1 Estrace 0.1 No Estrace MG/GM MG/GM 0.1 MG/GM HYDROcodone HYDROcodone No HYDROcodon -Acetaminop -Acetaminop e-Acetamin hen 7.5-325 hen 7.5-325 ophen MG MG 7.5-325 MG Benzonatate Benzonatate No 1{capsu TID Benzonatat 200 MG 200 MG le} e 200 MG Azelastine- Azelastine- No 1{spray BID Azelastine Fluticasone Fluticasone _in_eac -Fluticaso 137-50 137-50 h_nostr ne 137-50 MCG/ACT MCG/ACT il} MCG/ACT Montelukast Montelukast No Montelukas Sodium 10 Sodium 10 t Sodium MG MG 10 MG predniSONE predniSONE No QD predniSONE 10 MG 10 MG 10 MG Famotidine Famotidine No Famotidine 20 MG 20 MG 20 MG Montelukast Montelukast No Montelukas Sodium 10 Sodium 10 t Sodium MG MG 10 MG traMADol traMADol No traMADol HCl 50 MG HCl 50 MG HCl 50 MG Citalopram Citalopram No Citalopram Hydrobromid Hydrobromid Hydrobromi e 40 MG e 40 MG de 40 MG Benzonatate Benzonatate No 1{capsu TID Benzonatat 200 MG 200 MG le} e 200 MG rOPINIRole rOPINIRole No rOPINIRole HCl 3 MG HCl 3 MG HCl 3 MG Azelastine- Azelastine- No 1{spray BID Azelastine Fluticasone Fluticasone _in_eac -Fluticaso 137-50 137-50 h_nostr ne 137-50 MCG/ACT MCG/ACT il} MCG/ACT rOPINIRole rOPINIRole No rOPINIRole HCl 4 MG HCl 4 MG HCl 4 MG Estrace 0.1 Estrace 0.1 No Estrace MG/GM MG/GM 0.1 MG/GM Dicyclomine Dicyclomine No Dicyclomin HCl 20 MG HCl 20 MG e HCl 20 MG Ondansetron Ondansetron No Ondansetro HCl HCl n HCl Omeprazole Omeprazole No 1{capsu QD Omeprazole 10 MG 10 MG le} 10 MG Vitamin D3 Vitamin D3 No 1{capsu Vitamin D3 69601 UNIT 14402 UNIT le} 43419 UNIT predniSONE predniSONE No QD predniSONE 10 MG 10 MG 10 MG Lidocaine Lidocaine No Lidocaine Methocarbam Methocarbam No 1{table QD Methocarba ol 750 MG ol 750 MG t} mol 750 MG Pregabalin Pregabalin No Pregabalin 75 MG 75 MG 75 MG Celecoxib Celecoxib No 1{capsu QD Celecoxib 200 MG 200 MG le_with 200 MG _food} Mupirocin Mupirocin No Mupirocin HYDROcodone HYDROcodone No HYDROcodon -Acetaminop -Acetaminop e-Acetamin hen 7.5-325 hen 7.5-325 ophen MG MG 7.5-325 MG Celecoxib Celecoxib No 1{capsu QD Celecoxib 200 MG 200 MG le_with 200 MG _food} Lidocaine Lidocaine No Lidocaine traMADol traMADol No traMADol HCl 50 MG HCl 50 MG HCl 50 MG Mupirocin Mupirocin No Mupirocin HYDROcodone HYDROcodone No HYDROcodon -Acetaminop -Acetaminop e-Acetamin hen 7.5-325 hen 7.5-325 ophen MG MG 7.5-325 MG rOPINIRole rOPINIRole No rOPINIRole HCl 4 MG HCl 4 MG HCl 4 MG rOPINIRole rOPINIRole No rOPINIRole HCl 3 MG HCl 3 MG HCl 3 MG Estrace 0.1 Estrace 0.1 No Estrace MG/GM MG/GM 0.1 MG/GM Omeprazole Omeprazole No 1{capsu QD Omeprazole 10 MG 10 MG le} 10 MG Pregabalin Pregabalin No Pregabalin 75 MG 75 MG 75 MG predniSONE predniSONE No QD predniSONE 10 MG 10 MG 10 MG Vitamin D3 Vitamin D3 No 1{capsu Vitamin D3 99629 UNIT 69453 UNIT le} 49397 UNIT Methocarbam Methocarbam No 1{table QD Methocarba ol 750 MG ol 750 MG t} mol 750 MG Benzonatate Benzonatate No 1{capsu TID Benzonatat 200 MG 200 MG le} e 200 MG Azelastine- Azelastine- No 1{spray BID Azelastine Fluticasone Fluticasone _in_eac -Fluticaso 137-50 137-50 h_nostr ne 137-50 MCG/ACT MCG/ACT il} MCG/ACT Montelukast Montelukast No Montelukas Sodium 10 Sodium 10 t Sodium MG MG 10 MG Dicyclomine Dicyclomine No Dicyclomin HCl 20 MG HCl 20 MG e HCl 20 MG Ondansetron Ondansetron No Ondansetro HCl HCl n HCl Famotidine Famotidine No Famotidine 20 MG 20 MG 20 MG Citalopram Citalopram No Citalopram Hydrobromid Hydrobromid Hydrobromi e 40 MG e 40 MG de 40 MG Ondansetron Ondansetron No Ondansetro HCl HCl n HCl Benzonatate Benzonatate No 1{capsu TID Benzonatat 200 MG 200 MG le} e 200 MG rOPINIRole rOPINIRole No rOPINIRole HCl 3 MG HCl 3 MG HCl 3 MG Azelastine- Azelastine- No 1{spray BID Azelastine Fluticasone Fluticasone _in_eac -Fluticaso 137-50 137-50 h_nostr ne 137-50 MCG/ACT MCG/ACT il} MCG/ACT Omeprazole Omeprazole No 1{capsu QD Omeprazole 10 MG 10 MG le} 10 MG Lidocaine Lidocaine No Lidocaine Pregabalin Pregabalin No Pregabalin 75 MG 75 MG 75 MG Vitamin D3 Vitamin D3 No 1{capsu Vitamin D3 42044 UNIT 11584 UNIT le} 64843 UNIT HYDROcodone HYDROcodone No HYDROcodon -Acetaminop -Acetaminop e-Acetamin hen 7.5-325 hen 7.5-325 ophen MG MG 7.5-325 MG predniSONE predniSONE No QD predniSONE 10 MG 10 MG 10 MG traMADol traMADol No traMADol HCl 50 MG HCl 50 MG HCl 50 MG Celecoxib Celecoxib No 1{capsu QD Celecoxib 200 MG 200 MG le_with 200 MG _food} rOPINIRole rOPINIRole No rOPINIRole HCl 4 MG HCl 4 MG HCl 4 MG Methocarbam Methocarbam No 1{table QD Methocarba ol 750 MG ol 750 MG t} mol 750 MG Famotidine Famotidine No Famotidine 20 MG 20 MG 20 MG Montelukast Montelukast No Montelukas Sodium 10 Sodium 10 t Sodium MG MG 10 MG Citalopram Citalopram No Citalopram Hydrobromid Hydrobromid Hydrobromi e 40 MG e 40 MG de 40 MG Estrace 0.1 Estrace 0.1 No Estrace MG/GM MG/GM 0.1 MG/GM Mupirocin Mupirocin No Mupirocin Dicyclomine Dicyclomine No Dicyclomin HCl 20 MG HCl 20 MG e HCl 20 MG Ondansetron Ondansetron No Ondansetro HCl HCl n HCl Benzonatate Benzonatate No 1{capsu TID Benzonatat 200 MG 200 MG le} e 200 MG rOPINIRole rOPINIRole No rOPINIRole HCl 3 MG HCl 3 MG HCl 3 MG Azelastine- Azelastine- No 1{spray BID Azelastine Fluticasone Fluticasone _in_eac -Fluticaso 137-50 137-50 h_nostr ne 137-50 MCG/ACT MCG/ACT il} MCG/ACT Omeprazole Omeprazole No 1{capsu QD Omeprazole 10 MG 10 MG le} 10 MG Lidocaine Lidocaine No Lidocaine Pregabalin Pregabalin No Pregabalin 75 MG 75 MG 75 MG Vitamin D3 Vitamin D3 No 1{capsu Vitamin D3 44957 UNIT 84408 UNIT le} 96263 UNIT HYDROcodone HYDROcodone No HYDROcodon -Acetaminop -Acetaminop e-Acetamin hen 7.5-325 hen 7.5-325 ophen MG MG 7.5-325 MG predniSONE predniSONE No QD predniSONE 10 MG 10 MG 10 MG traMADol traMADol No traMADol HCl 50 MG HCl 50 MG HCl 50 MG Celecoxib Celecoxib No 1{capsu QD Celecoxib 200 MG 200 MG le_with 200 MG _food} rOPINIRole rOPINIRole No rOPINIRole HCl 4 MG HCl 4 MG HCl 4 MG Methocarbam Methocarbam No 1{table QD Methocarba ol 750 MG ol 750 MG t} mol 750 MG Famotidine Famotidine No Famotidine 20 MG 20 MG 20 MG Montelukast Montelukast No Montelukas Sodium 10 Sodium 10 t Sodium MG MG 10 MG Citalopram Citalopram No Citalopram Hydrobromid Hydrobromid Hydrobromi e 40 MG e 40 MG de 40 MG Estrace 0.1 Estrace 0.1 No Estrace MG/GM MG/GM 0.1 MG/GM Mupirocin Mupirocin No Mupirocin Dicyclomine Dicyclomine No Dicyclomin HCl 20 MG HCl 20 MG e HCl 20 MG HYDROcodone HYDROcodone No HYDROcodon -Acetaminop -Acetaminop e-Acetamin hen 7.5-325 hen 7.5-325 ophen MG MG 7.5-325 MG Estrace 0.1 Estrace 0.1 No Estrace MG/GM MG/GM 0.1 MG/GM rOPINIRole rOPINIRole No rOPINIRole HCl 3 MG HCl 3 MG HCl 3 MG Benzonatate Benzonatate No 1{capsu TID Benzonatat 200 MG 200 MG le} e 200 MG Omeprazole Omeprazole No 1{capsu QD Omeprazole 10 MG 10 MG le} 10 MG Mupirocin Mupirocin No Mupirocin traMADol traMADol No traMADol HCl 50 MG HCl 50 MG HCl 50 MG predniSONE predniSONE No QD predniSONE 10 MG 10 MG 10 MG Celecoxib Celecoxib No 1{capsu QD Celecoxib 200 MG 200 MG le_with 200 MG _food} Montelukast Montelukast No Montelukas Sodium 10 Sodium 10 t Sodium MG MG 10 MG rOPINIRole rOPINIRole No rOPINIRole HCl 4 MG HCl 4 MG HCl 4 MG Vitamin D3 Vitamin D3 No 1{capsu Vitamin D3 44657 UNIT 26831 UNIT le} 60433 UNIT Methocarbam Methocarbam No 1{table QD Methocarba ol 750 MG ol 750 MG t} mol 750 MG Azelastine- Azelastine- No 1{spray BID Azelastine Fluticasone Fluticasone _in_eac -Fluticaso 137-50 137-50 h_nostr ne 137-50 MCG/ACT MCG/ACT il} MCG/ACT Dicyclomine Dicyclomine No Dicyclomin HCl 20 MG HCl 20 MG e HCl 20 MG Ondansetron Ondansetron No Ondansetro HCl HCl n HCl Famotidine Famotidine No Famotidine 20 MG 20 MG 20 MG Pregabalin Pregabalin No Pregabalin 75 MG 75 MG 75 MG Lidocaine Lidocaine No Lidocaine Citalopram Citalopram No Citalopram Hydrobromid Hydrobromid Hydrobromi e 40 MG e 40 MG de 40 MG Omeprazole Omeprazole No 1{capsu QD Omeprazole 10 MG 10 MG le} 10 MG HYDROcodone HYDROcodone No HYDROcodon -Acetaminop -Acetaminop e-Acetamin hen 7.5-325 hen 7.5-325 ophen MG MG 7.5-325 MG traMADol traMADol No traMADol HCl 50 MG HCl 50 MG HCl 50 MG Benzonatate Benzonatate No 1{capsu TID Benzonatat 200 MG 200 MG le} e 200 MG rOPINIRole rOPINIRole No rOPINIRole HCl 3 MG HCl 3 MG HCl 3 MG Mupirocin Mupirocin No Mupirocin Famotidine Famotidine No Famotidine 20 MG 20 MG 20 MG predniSONE predniSONE No QD predniSONE 10 MG 10 MG 10 MG rOPINIRole rOPINIRole No rOPINIRole HCl 4 MG HCl 4 MG HCl 4 MG Montelukast Montelukast No Montelukas Sodium 10 Sodium 10 t Sodium MG MG 10 MG Ondansetron Ondansetron No Ondansetro HCl HCl n HCl Vitamin D3 Vitamin D3 No 1{capsu Vitamin D3 25485 UNIT 46262 UNIT le} 59311 UNIT Citalopram Citalopram No Citalopram Hydrobromid Hydrobromid Hydrobromi e 40 MG e 40 MG de 40 MG Dicyclomine Dicyclomine No Dicyclomin HCl 20 MG HCl 20 MG e HCl 20 MG Methocarbam Methocarbam No 1{table QD Methocarba ol 750 MG ol 750 MG t} mol 750 MG Azelastine- Azelastine- No 1{spray BID Azelastine Fluticasone Fluticasone _in_eac -Fluticaso 137-50 137-50 h_nostr ne 137-50 MCG/ACT MCG/ACT il} MCG/ACT Pregabalin Pregabalin No Pregabalin 75 MG 75 MG 75 MG Lidocaine Lidocaine No Lidocaine Estrace 0.1 Estrace 0.1 No Estrace MG/GM MG/GM 0.1 MG/GM Mupirocin Mupirocin No Mupirocin Dicyclomine Dicyclomine No Dicyclomin HCl 20 MG HCl 20 MG e HCl 20 MG rOPINIRole rOPINIRole No rOPINIRole HCl 3 MG HCl 3 MG HCl 3 MG Benzonatate Benzonatate No 1{capsu TID Benzonatat 200 MG 200 MG le} e 200 MG Methocarbam Methocarbam No 1{table QD Methocarba ol 750 MG ol 750 MG t} mol 750 MG Azelastine- Azelastine- No 1{spray BID Azelastine Fluticasone Fluticasone _in_eac -Fluticaso 137-50 137-50 h_nostr ne 137-50 MCG/ACT MCG/ACT il} MCG/ACT Pregabalin Pregabalin No Pregabalin 75 MG 75 MG 75 MG Citalopram Citalopram No Citalopram Hydrobromid Hydrobromid Hydrobromi e 40 MG e 40 MG de 40 MG Montelukast Montelukast No Montelukas Sodium 10 Sodium 10 t Sodium MG MG 10 MG HYDROcodone HYDROcodone No HYDROcodon -Acetaminop -Acetaminop e-Acetamin hen 7.5-325 hen 7.5-325 ophen MG MG 7.5-325 MG Omeprazole Omeprazole No 1{capsu QD Omeprazole 10 MG 10 MG le} 10 MG rOPINIRole rOPINIRole No rOPINIRole HCl 4 MG HCl 4 MG HCl 4 MG Lidocaine Lidocaine No Lidocaine predniSONE predniSONE No QD predniSONE 10 MG 10 MG 10 MG Ondansetron Ondansetron No Ondansetro HCl HCl n HCl Estrace 0.1 Estrace 0.1 No Estrace MG/GM MG/GM 0.1 MG/GM Famotidine Famotidine No Famotidine 20 MG 20 MG 20 MG traMADol traMADol No traMADol HCl 50 MG HCl 50 MG HCl 50 MG Vitamin D3 Vitamin D3 No 1{capsu Vitamin D3 58553 UNIT 31802 UNIT le} 20648 UNIT HYDROcodone HYDROcodone No HYDROcodon -Acetaminop -Acetaminop e-Acetamin hen 7.5-325 hen 7.5-325 ophen MG MG 7.5-325 MG Omeprazole Omeprazole No 1{capsu QD Omeprazole 10 MG 10 MG le} 10 MG Benzonatate Benzonatate No 1{capsu TID Benzonatat 200 MG 200 MG le} e 200 MG Montelukast Montelukast No Montelukas Sodium 10 Sodium 10 t Sodium MG MG 10 MG rOPINIRole rOPINIRole No rOPINIRole HCl 3 MG HCl 3 MG HCl 3 MG Vitamin D3 Vitamin D3 No 1{capsu Vitamin D3 01159 UNIT 16649 UNIT le} 99143 UNIT Pregabalin Pregabalin No Pregabalin 75 MG 75 MG 75 MG Citalopram Citalopram No Citalopram Hydrobromid Hydrobromid Hydrobromi e 40 MG e 40 MG de 40 MG rOPINIRole rOPINIRole No rOPINIRole HCl 4 MG HCl 4 MG HCl 4 MG predniSONE predniSONE No QD predniSONE 10 MG 10 MG 10 MG Famotidine Famotidine No Famotidine 20 MG 20 MG 20 MG Ondansetron Ondansetron No Ondansetro HCl HCl n HCl Estrace 0.1 Estrace 0.1 No Estrace MG/GM MG/GM 0.1 MG/GM traMADol traMADol No traMADol HCl 50 MG HCl 50 MG HCl 50 MG Dicyclomine Dicyclomine No Dicyclomin HCl 20 MG HCl 20 MG e HCl 20 MG Mupirocin Mupirocin No Mupirocin Methocarbam Methocarbam No 1{table QD Methocarba ol 750 MG ol 750 MG t} mol 750 MG Azelastine- Azelastine- No 1{spray BID Azelastine Fluticasone Fluticasone _in_eac -Fluticaso 137-50 137-50 h_nostr ne 137-50 MCG/ACT MCG/ACT il} MCG/ACT Lidocaine Lidocaine No Lidocaine HYDROcodone HYDROcodone No HYDROcodon -Acetaminop -Acetaminop e-Acetamin hen 7.5-325 hen 7.5-325 ophen MG MG 7.5-325 MG Omeprazole Omeprazole No 1{capsu QD Omeprazole 10 MG 10 MG le} 10 MG Benzonatate Benzonatate No 1{capsu TID Benzonatat 200 MG 200 MG le} e 200 MG Montelukast Montelukast No Montelukas Sodium 10 Sodium 10 t Sodium MG MG 10 MG rOPINIRole rOPINIRole No rOPINIRole HCl 3 MG HCl 3 MG HCl 3 MG Vitamin D3 Vitamin D3 No 1{capsu Vitamin D3 80061 UNIT 70882 UNIT le} 58014 UNIT Pregabalin Pregabalin No Pregabalin 75 MG 75 MG 75 MG Citalopram Citalopram No Citalopram Hydrobromid Hydrobromid Hydrobromi e 40 MG e 40 MG de 40 MG rOPINIRole rOPINIRole No rOPINIRole HCl 4 MG HCl 4 MG HCl 4 MG predniSONE predniSONE No QD predniSONE 10 MG 10 MG 10 MG Famotidine Famotidine No Famotidine 20 MG 20 MG 20 MG Ondansetron Ondansetron No Ondansetro HCl HCl n HCl Estrace 0.1 Estrace 0.1 No Estrace MG/GM MG/GM 0.1 MG/GM traMADol traMADol No traMADol HCl 50 MG HCl 50 MG HCl 50 MG Dicyclomine Dicyclomine No Dicyclomin HCl 20 MG HCl 20 MG e HCl 20 MG Mupirocin Mupirocin No Mupirocin Methocarbam Methocarbam No 1{table QD Methocarba ol 750 MG ol 750 MG t} mol 750 MG Azelastine- Azelastine- No 1{spray BID Azelastine Fluticasone Fluticasone _in_eac -Fluticaso 137-50 137-50 h_nostr ne 137-50 MCG/ACT MCG/ACT il} MCG/ACT Lidocaine Lidocaine No Lidocaine predniSONE predniSONE No QD predniSONE 10 MG 10 MG 10 MG Famotidine Famotidine No Famotidine 20 MG 20 MG 20 MG Montelukast Montelukast No Montelukas Sodium 10 Sodium 10 t Sodium MG MG 10 MG rOPINIRole rOPINIRole No rOPINIRole HCl 3 MG HCl 3 MG HCl 3 MG traMADol traMADol No traMADol HCl 50 MG HCl 50 MG HCl 50 MG Vitamin D3 Vitamin D3 No 1{capsu Vitamin D3 54542 UNIT 98232 UNIT le} 16151 UNIT Pregabalin Pregabalin No Pregabalin 75 MG 75 MG 75 MG Estrace 0.1 Estrace 0.1 No Estrace MG/GM MG/GM 0.1 MG/GM Lidocaine Lidocaine No Lidocaine HYDROcodone HYDROcodone No HYDROcodon -Acetaminop -Acetaminop e-Acetamin hen 7.5-325 hen 7.5-325 ophen MG MG 7.5-325 MG Citalopram Citalopram No Citalopram Hydrobromid Hydrobromid Hydrobromi e 40 MG e 40 MG de 40 MG Methocarbam Methocarbam No 1{table QD Methocarba ol 750 MG ol 750 MG t} mol 750 MG Mupirocin Mupirocin No Mupirocin Dicyclomine Dicyclomine No Dicyclomin HCl 20 MG HCl 20 MG e HCl 20 MG Benzonatate Benzonatate No 1{capsu TID Benzonatat 200 MG 200 MG le} e 200 MG Ondansetron Ondansetron No Ondansetro HCl HCl n HCl rOPINIRole rOPINIRole No rOPINIRole HCl 4 MG HCl 4 MG HCl 4 MG Omeprazole Omeprazole No 1{capsu QD Omeprazole 10 MG 10 MG le} 10 MG Azelastine- Azelastine- No 1{spray BID Azelastine Fluticasone Fluticasone _in_eac -Fluticaso 137-50 137-50 h_nostr ne 137-50 MCG/ACT MCG/ACT il} MCG/ACT Lidocaine Lidocaine No Lidocaine Estrace 0.1 Estrace 0.1 No Estrace MG/GM MG/GM 0.1 MG/GM HYDROcodone HYDROcodone No HYDROcodon -Acetaminop -Acetaminop e-Acetamin hen 7.5-325 hen 7.5-325 ophen MG MG 7.5-325 MG Dicyclomine Dicyclomine No Dicyclomin HCl 20 MG HCl 20 MG e HCl 20 MG Omeprazole Omeprazole No 1{capsu QD Omeprazole 10 MG 10 MG le} 10 MG Citalopram Citalopram No Citalopram Hydrobromid Hydrobromid Hydrobromi e 40 MG e 40 MG de 40 MG rOPINIRole rOPINIRole No rOPINIRole HCl 3 MG HCl 3 MG HCl 3 MG Montelukast Montelukast No Montelukas Sodium 10 Sodium 10 t Sodium MG MG 10 MG Methocarbam Methocarbam No 1{table QD Methocarba ol 750 MG ol 750 MG t} mol 750 MG traMADol traMADol No traMADol HCl 50 MG HCl 50 MG HCl 50 MG Azelastine- Azelastine- No 1{spray BID Azelastine Fluticasone Fluticasone _in_eac -Fluticaso 137-50 137-50 h_nostr ne 137-50 MCG/ACT MCG/ACT il} MCG/ACT rOPINIRole rOPINIRole No rOPINIRole HCl 4 MG HCl 4 MG HCl 4 MG Vitamin D3 Vitamin D3 No 1{capsu Vitamin D3 78864 UNIT 77410 UNIT le} 62785 UNIT predniSONE predniSONE No QD predniSONE 10 MG 10 MG 10 MG Benzonatate Benzonatate No 1{capsu TID Benzonatat 200 MG 200 MG le} e 200 MG Ondansetron Ondansetron No Ondansetro HCl HCl n HCl Pregabalin Pregabalin No Pregabalin 75 MG 75 MG 75 MG Famotidine Famotidine No Famotidine 20 MG 20 MG 20 MG Mupirocin Mupirocin No Mupirocin Lidocaine Lidocaine No Lidocaine Estrace 0.1 Estrace 0.1 No Estrace MG/GM MG/GM 0.1 MG/GM HYDROcodone HYDROcodone No HYDROcodon -Acetaminop -Acetaminop e-Acetamin hen 7.5-325 hen 7.5-325 ophen MG MG 7.5-325 MG Dicyclomine Dicyclomine No Dicyclomin HCl 20 MG HCl 20 MG e HCl 20 MG Omeprazole Omeprazole No 1{capsu QD Omeprazole 10 MG 10 MG le} 10 MG Citalopram Citalopram No Citalopram Hydrobromid Hydrobromid Hydrobromi e 40 MG e 40 MG de 40 MG rOPINIRole rOPINIRole No rOPINIRole HCl 3 MG HCl 3 MG HCl 3 MG Montelukast Montelukast No Montelukas Sodium 10 Sodium 10 t Sodium MG MG 10 MG Methocarbam Methocarbam No 1{table QD Methocarba ol 750 MG ol 750 MG t} mol 750 MG traMADol traMADol No traMADol HCl 50 MG HCl 50 MG HCl 50 MG Azelastine- Azelastine- No 1{spray BID Azelastine Fluticasone Fluticasone _in_eac -Fluticaso 137-50 137-50 h_nostr ne 137-50 MCG/ACT MCG/ACT il} MCG/ACT rOPINIRole rOPINIRole No rOPINIRole HCl 4 MG HCl 4 MG HCl 4 MG Vitamin D3 Vitamin D3 No 1{capsu Vitamin D3 83796 UNIT 82105 UNIT le} 44834 UNIT predniSONE predniSONE No QD predniSONE 10 MG 10 MG 10 MG Benzonatate Benzonatate No 1{capsu TID Benzonatat 200 MG 200 MG le} e 200 MG Ondansetron Ondansetron No Ondansetro HCl HCl n HCl Pregabalin Pregabalin No Pregabalin 75 MG 75 MG 75 MG Famotidine Famotidine No Famotidine 20 MG 20 MG 20 MG Mupirocin Mupirocin No Mupirocin Lidocaine Lidocaine No Lidocaine Estrace 0.1 Estrace 0.1 No Estrace MG/GM MG/GM 0.1 MG/GM HYDROcodone HYDROcodone No HYDROcodon -Acetaminop -Acetaminop e-Acetamin hen 7.5-325 hen 7.5-325 ophen MG MG 7.5-325 MG Dicyclomine Dicyclomine No Dicyclomin HCl 20 MG HCl 20 MG e HCl 20 MG Omeprazole Omeprazole No 1{capsu QD Omeprazole 10 MG 10 MG le} 10 MG Citalopram Citalopram No Citalopram Hydrobromid Hydrobromid Hydrobromi e 40 MG e 40 MG de 40 MG rOPINIRole rOPINIRole No rOPINIRole HCl 3 MG HCl 3 MG HCl 3 MG Montelukast Montelukast No Montelukas Sodium 10 Sodium 10 t Sodium MG MG 10 MG Methocarbam Methocarbam No 1{table QD Methocarba ol 750 MG ol 750 MG t} mol 750 MG traMADol traMADol No traMADol HCl 50 MG HCl 50 MG HCl 50 MG Azelastine- Azelastine- No 1{spray BID Azelastine Fluticasone Fluticasone _in_eac -Fluticaso 137-50 137-50 h_nostr ne 137-50 MCG/ACT MCG/ACT il} MCG/ACT rOPINIRole rOPINIRole No rOPINIRole HCl 4 MG HCl 4 MG HCl 4 MG Vitamin D3 Vitamin D3 No 1{capsu Vitamin D3 55517 UNIT 33211 UNIT le} 01902 UNIT predniSONE predniSONE No QD predniSONE 10 MG 10 MG 10 MG Benzonatate Benzonatate No 1{capsu TID Benzonatat 200 MG 200 MG le} e 200 MG Ondansetron Ondansetron No Ondansetro HCl HCl n HCl Pregabalin Pregabalin No Pregabalin 75 MG 75 MG 75 MG Famotidine Famotidine No Famotidine 20 MG 20 MG 20 MG Mupirocin Mupirocin No Mupirocin Estrace 0.1 Estrace 0.1 No Estrace MG/GM MG/GM 0.1 MG/GM Mupirocin Mupirocin No Mupirocin Omeprazole Omeprazole No 1{capsu QD Omeprazole 10 MG 10 MG le} 10 MG predniSONE predniSONE No QD predniSONE 10 MG 10 MG 10 MG Lidocaine Lidocaine No Lidocaine Methocarbam Methocarbam No 1{table QD Methocarba ol 750 MG ol 750 MG t} mol 750 MG HYDROcodone HYDROcodone No HYDROcodon -Acetaminop -Acetaminop e-Acetamin hen 7.5-325 hen 7.5-325 ophen MG MG 7.5-325 MG Montelukast Montelukast No Montelukas Sodium 10 Sodium 10 t Sodium MG MG 10 MG traMADol traMADol No traMADol HCl 50 MG HCl 50 MG HCl 50 MG Azelastine- Azelastine- No 1{spray BID Azelastine Fluticasone Fluticasone _in_eac -Fluticaso 137-50 137-50 h_nostr ne 137-50 MCG/ACT MCG/ACT il} MCG/ACT Dicyclomine Dicyclomine No Dicyclomin HCl 20 MG HCl 20 MG e HCl 20 MG Citalopram Citalopram No Citalopram Hydrobromid Hydrobromid Hydrobromi e 40 MG e 40 MG de 40 MG Benzonatate Benzonatate No 1{capsu TID Benzonatat 200 MG 200 MG le} e 200 MG Ondansetron Ondansetron No Ondansetro HCl HCl n HCl Famotidine Famotidine No Famotidine 20 MG 20 MG 20 MG rOPINIRole rOPINIRole No rOPINIRole HCl 3 MG HCl 3 MG HCl 3 MG Pregabalin Pregabalin No Pregabalin 75 MG 75 MG 75 MG rOPINIRole rOPINIRole No rOPINIRole HCl 4 MG HCl 4 MG HCl 4 MG Vitamin D3 Vitamin D3 No 1{capsu Vitamin D3 48586 UNIT 59156 UNIT le} 84402 UNIT predniSONE predniSONE No QD predniSONE 10 MG 10 MG 10 MG Famotidine Famotidine No Famotidine 20 MG 20 MG 20 MG Methocarbam Methocarbam No 1{table QD Methocarba ol 750 MG ol 750 MG t} mol 750 MG Dicyclomine Dicyclomine No Dicyclomin HCl 20 MG HCl 20 MG e HCl 20 MG HYDROcodone HYDROcodone No HYDROcodon -Acetaminop -Acetaminop e-Acetamin hen 7.5-325 hen 7.5-325 ophen MG MG 7.5-325 MG Benzonatate Benzonatate No 1{capsu TID Benzonatat 200 MG 200 MG le} e 200 MG Lidocaine Lidocaine No Lidocaine Omeprazole Omeprazole No 1{capsu QD Omeprazole 10 MG 10 MG le} 10 MG Estrace 0.1 Estrace 0.1 No Estrace MG/GM MG/GM 0.1 MG/GM Pregabalin Pregabalin No Pregabalin 75 MG 75 MG 75 MG Citalopram Citalopram No Citalopram Hydrobromid Hydrobromid Hydrobromi e 40 MG e 40 MG de 40 MG rOPINIRole rOPINIRole No rOPINIRole HCl 3 MG HCl 3 MG HCl 3 MG traMADol traMADol No traMADol HCl 50 MG HCl 50 MG HCl 50 MG Mupirocin Mupirocin No Mupirocin Ondansetron Ondansetron No Ondansetro HCl HCl n HCl rOPINIRole rOPINIRole No rOPINIRole HCl 4 MG HCl 4 MG HCl 4 MG Vitamin D3 Vitamin D3 No 1{capsu Vitamin D3 64858 UNIT 93334 UNIT le} 30725 UNIT Azelastine- Azelastine- No 1{spray BID Azelastine Fluticasone Fluticasone _in_eac -Fluticaso 137-50 137-50 h_nostr ne 137-50 MCG/ACT MCG/ACT il} MCG/ACT Montelukast Montelukast No Montelukas Sodium 10 Sodium 10 t Sodium MG MG 10 MG Estrace 0.1 Estrace 0.1 No Estrace MG/GM MG/GM 0.1 MG/GM Famotidine Famotidine No Famotidine 20 MG 20 MG 20 MG Omeprazole Omeprazole No 1{capsu QD Omeprazole 10 MG 10 MG le} 10 MG Citalopram Citalopram No Citalopram Hydrobromid Hydrobromid Hydrobromi e 40 MG e 40 MG de 40 MG Lidocaine Lidocaine No Lidocaine Azelastine- Azelastine- No 1{spray BID Azelastine Fluticasone Fluticasone _in_eac -Fluticaso 137-50 137-50 h_nostr ne 137-50 MCG/ACT MCG/ACT il} MCG/ACT HYDROcodone HYDROcodone No HYDROcodon -Acetaminop -Acetaminop e-Acetamin hen 7.5-325 hen 7.5-325 ophen MG MG 7.5-325 MG Vitamin D3 Vitamin D3 No 1{capsu Vitamin D3 16397 UNIT 93618 UNIT le} 83070 UNIT predniSONE predniSONE No QD predniSONE 10 MG 10 MG 10 MG Montelukast Montelukast No Montelukas Sodium 10 Sodium 10 t Sodium MG MG 10 MG rOPINIRole rOPINIRole No rOPINIRole HCl 4 MG HCl 4 MG HCl 4 MG Benzonatate Benzonatate No 1{capsu TID Benzonatat 200 MG 200 MG le} e 200 MG Pregabalin Pregabalin No Pregabalin 75 MG 75 MG 75 MG Ondansetron Ondansetron No Ondansetro HCl HCl n HCl Methocarbam Methocarbam No 1{table QD Methocarba ol 750 MG ol 750 MG t} mol 750 MG rOPINIRole rOPINIRole No rOPINIRole HCl 3 MG HCl 3 MG HCl 3 MG Dicyclomine Dicyclomine No Dicyclomin HCl 20 MG HCl 20 MG e HCl 20 MG Mupirocin Mupirocin No Mupirocin traMADol traMADol No traMADol HCl 50 MG HCl 50 MG HCl 50 MG rOPINIRole rOPINIRole No rOPINIRole HCl 4 MG HCl 4 MG HCl 4 MG predniSONE predniSONE No QD predniSONE 10 MG 10 MG 10 MG Omeprazole Omeprazole No 1{capsu QD Omeprazole 10 MG 10 MG le} 10 MG Mupirocin Mupirocin No Mupirocin rOPINIRole rOPINIRole No rOPINIRole HCl 3 MG HCl 3 MG HCl 3 MG HYDROcodone HYDROcodone No HYDROcodon -Acetaminop -Acetaminop e-Acetamin hen 7.5-325 hen 7.5-325 ophen MG MG 7.5-325 MG Pregabalin Pregabalin No Pregabalin 75 MG 75 MG 75 MG Citalopram Citalopram No Citalopram Hydrobromid Hydrobromid Hydrobromi e 40 MG e 40 MG de 40 MG Montelukast Montelukast No Montelukas Sodium 10 Sodium 10 t Sodium MG MG 10 MG Benzonatate Benzonatate No 1{capsu TID Benzonatat 200 MG 200 MG le} e 200 MG Methocarbam Methocarbam No 1{table QD Methocarba ol 750 MG ol 750 MG t} mol 750 MG Azelastine- Azelastine- No 1{spray BID Azelastine Fluticasone Fluticasone _in_eac -Fluticaso 137-50 137-50 h_nostr ne 137-50 MCG/ACT MCG/ACT il} MCG/ACT Lidocaine Lidocaine No Lidocaine Vitamin D3 Vitamin D3 No 1{capsu Vitamin D3 07989 UNIT 48242 UNIT le} 75034 UNIT Dicyclomine Dicyclomine No Dicyclomin HCl 20 MG HCl 20 MG e HCl 20 MG Estrace 0.1 Estrace 0.1 No Estrace MG/GM MG/GM 0.1 MG/GM traMADol traMADol No traMADol HCl 50 MG HCl 50 MG HCl 50 MG Ondansetron Ondansetron No Ondansetro HCl HCl n HCl Famotidine Famotidine No Famotidine 20 MG 20 MG 20 MG rOPINIRole rOPINIRole No rOPINIRole HCl 4 MG HCl 4 MG HCl 4 MG predniSONE predniSONE No QD predniSONE 10 MG 10 MG 10 MG Omeprazole Omeprazole No 1{capsu QD Omeprazole 10 MG 10 MG le} 10 MG Mupirocin Mupirocin No Mupirocin Celecoxib Celecoxib 2021- No 1{capsu QD Celecoxib 200 MG 200 MG 05-05 le_with 200 MG 00:00 _food} :00 Celecoxib Celecoxib 2021- No 1{capsu QD Celecoxib 200 MG 200 MG -06 le_with 200 MG 00:00 _food} :00 Immunizations Ordered Immunization Filled Immunization Date Status Commen ts Source Name Name Vitamin B12 Vitamin B12 2021-02-16 [facility]Cyanocobalamin[facility] 11:21:00 - [facility] FluAD FluAD 2021-02-16 [facility] 11:19:00 - [facility] FluAD FluAD 2021-02-16 [facility] 11:19:00 - [facility] FluAD FluAD 2021-02-16 [facility] 11:19: - [facility] FluAD FluAD 2021-02-16 [facility] 11:: - [facility] FluAD FluAD 2021-02-16 [facility] 11:: - [facility] FluAD FluAD 2021-02-16 [facility] 11:: - [facility] FluAD FluAD 2021-02-16 [facility] 11:19: - [facility] FluAD FluAD 2021-02-16 [facility] 11:19: - [facility] FluAD FluAD 2021-02-16 [facility] 11:: - [facility] Flu[facility] FluAD 2021-02-16 [facility] 11:: - [facility] Flu[facility] FluAD 2021-02-16 [facility] 11:: - [facility] Flu[facility] FluAD 2021-02-16 [facility] 11:: - [facility] Flu[facility] FluAD 2021-02-16 [facility] 11:: - [facility] Flu[facility] FluAD 2021-02-16 [facility] 11:: - [facility] Flu[facility] FluAD 2021-02-16 [facility] 11:: - [facility] Flu[facility] FluAD 2021-02-16 [facility] 11:: - [facility] Flu[facility] FluAD 2021-02-16 [facility] 11:: - [facility] Flu[facility] FluAD 2021-02-16 Com[facility] 11::00 - [facility] FluAD FluAD 2021-02-16 Completed [facility] 11:19:00 - [facility] FluAD FluAD 2021-02-16 Completed [facility] 11::00 - [facility] FluAD FluAD 2021-02-16 Completed [facility] 11::00 - [facility] FluAD FluAD 2021-02-16 Completed [facility] 11::00 - [facility] FluAD FluAD 2021-02-16 Completed [facility] 11:19: - [facility] FluAD FluAD 2021-02-16 Completed [facility] 11:: - [facility] Flu[facility] FluAD 2021-02-16 Com[facility] 11:: - [facility] Flu[facility] FluAD 2021-02-16 [facility] 11:: - [facility] FluAD FluAD 2021-02-16 Completed [facility] 11:19: - [facility] FluAD FluAD 2021-02-16 Completed [facility] 11:19: - [facility] Flu[facility] FluAD 2021-02-16 Completed [facility] 11:: - [facility] Flu[facility] FluAD 2021-02-16 Com[facility] 11:: - [facility] Flu[facility] FluAD 2021-02-16 Com[facility] 11:: - [facility] Flu[facility] FluAD 2021-02-16 Com[facility] 11:: - [facility] Flu[facility] FluAD 2021-02-16 Com[facility] 11:: - [facility] Flu[facility] FluAD 2021-02-16 Completed [facility] 11:: - [facility] Flu[facility] FluAD 2021-02-16 Completed [facility] 11:: - [facility] Flu[facility] FluAD 2021-02-16 Completed [facility] 11:: - [facility] FluAD FluAD 2021-02-16 Completed [facility] 11:: - [facility] Flu[facility] FluAD 2021-02-16 Completed [facility] 11::00 - [facility] FluAD FluAD 2021-02-16 Completed [facility] 11:19:00 - [facility] FluAD FluAD 2021-02-16 Completed [facility] 11::00 - [facility] FluAD FluAD 2021-02-16 Completed [facility] 11::00 - [facility] FluAD FluAD 2021-02-16 Completed [facility] 11::00 - [facility] FluAD FluAD 2021-02-16 Completed [facility] 11:19:00 - [facility] FluAD FluAD 2021-02-16 Completed [facility] 11:19:00 - [facility] FluAD FluAD 2021-02-16 Completed [facility] 11::00 - [facility] FluAD FluAD 2021-02-16 Completed [facility] 11:19:00 - [facility] FluAD FluAD 2021-02-16 Completed [facility] 11:19:00 - [facility] FluAD FluAD 2021-02-16 Completed [facility] 11:19:00 - [facility] FluAD FluAD 2021-02-16 Completed [facility] 11::00 - [facility] FluAD FluAD 2021-02-16 Completed [facility] 11::00 - [facility] FluAD FluAD 2021-02-16 Com[facility] 11:: [facility] Vitamin B12 Vitamin B12 2020-12-22 [facility] (Cyanocobalamin) (Cyanocobalamin) 14:35:00 [facility] Vitamin B12 Vitamin B12 2020-12-22 Com[facility] (Cyanocobalamin) (Cyanocobalamin) 14:35:00 [facility] Vitamin B12 Vitamin B12 2020-12-22 Completed [facility] (Cyanocobalamin) (Cyanocobalamin) 14:35:00 [facility] Vitamin B12 Vitamin B12 2020-12-08 Completed [facility] (Cyanocobalamin) (Cyanocobalamin) 15:07:00 [facility] Vitamin B12 Vitamin B12 2020-12-08 Completed [facility] (Cyanocobalamin) (Cyanocobalamin) 15:07:00 [facility] Vitamin B12 Vitamin B12 2020-12-08 Completed [facility] (Cyanocobalamin) (Cyanocobalamin) 15::00 [facility] Vitamin B12 Vitamin B12 2020-11-18 Completed [facility] (Cyanocobalamin) (Cyanocobalamin) 09:43:00 [facility] Vitamin B12 Vitamin B12 2020-11-18 Completed [facility] (Cyanocobalamin) (Cyanocobalamin) 09:43:00 [facility] Vitamin B12 Vitamin B12 2020-11-18 Completed [facility] (Cyanocobalamin) (Cyanocobalamin) 09:43:00 [facility] Vitamin B12 Vitamin B12 2020-11-04 Completed [facility] (Cyanocobalamin) (Cyanocobalamin) 15:40:00 [facility] Vitamin B12 Vitamin B12 2020-11-04 Completed [facility] (Cyanocobalamin) (Cyanocobalamin) 15:40:00 [facility] Vitamin B12 Vitamin B12 2020-11-04 Completed [facility] (Cyanocobalamin) (Cyanocobalamin) 15:40:00 [facility] Vitamin B12 Vitamin B12 2020-10-15 Completed [facility] (Cyanocobalamin) (Cyanocobalamin) 10:32:00 [facility] Vitamin B12 Vitamin B12 2020-10-15 Completed [facility] (Cyanocobalamin) (Cyanocobalamin) 10:32:00 [facility] Vitamin B12 Vitamin B12 2020-10-15 Completed [facility] (Cyanocobalamin) (Cyanocobalamin) 10:32:00 [facility] Vitamin B12 Vitamin B12 2020-09-16 Completed [facility] (Cyanocobalamin) (Cyanocobalamin) 15:47:00 [facility] Vitamin B12 Vitamin B12 2020-09-16 Completed [facility] (Cyanocobalamin) (Cyanocobalamin) 15:47:00 [facility] Vitamin B12 Vitamin B12 2020-09-16 Completed [facility] (Cyanocobalamin) (Cyanocobalamin) 15:47:00 [facility] Vitamin B12 Vitamin B12 2020-09-02 Completed [facility] (Cyanocobalamin) (Cyanocobalamin) 13:49:00 [facility] Vitamin B12 Vitamin B12 2020-09-02 Completed [facility] (Cyanocobalamin) (Cyanocobalamin) 13:49:00 [facility] Vitamin B12 Vitamin B12 2020-09-02 Completed [facility] (Cyanocobalamin) (Cyanocobalamin) 13:49:00 [facility] Vitamin B12 Vitamin B12 2020-08-24 Completed [facility] (Cyanocobalamin) (Cyanocobalamin) 14:16:00 [facility] Vitamin B12 Vitamin B12 2020-08-24 Completed [facility] (Cyanocobalamin) (Cyanocobalamin) 14:16:00 [facility] Vitamin B12 Vitamin B12 2020-08-24 Completed [facility] (Cyanocobalamin) (Cyanocobalamin) 14:16:00 [facility] Vitamin B12 Vitamin B12 2020-08-05 Completed [facility] (Cyanocobalamin) (Cyanocobalamin) 13:38:00 [facility] Vitamin B12 Vitamin B12 2020-08-05 Completed [facility] (Cyanocobalamin) (Cyanocobalamin) 13:38:00 [facility] Vitamin B12 Vitamin B12 2020-08-05 Completed [facility] (Cyanocobalamin) (Cyanocobalamin) 13:38:00 [facility] Vitamin B12 Vitamin B12 2020-07-22 Completed [facility] (Cyanocobalamin) (Cyanocobalamin) 13:34:00 [facility] Vitamin B12 Vitamin B12 2020-07-22 Completed [facility] (Cyanocobalamin) (Cyanocobalamin) 13:34:00 [facility] Vitamin B12 Vitamin B12 2020-07-22 Completed [facility] (Cyanocobalamin) (Cyanocobalamin) 13:34:00 [facility] Vitamin B12 Vitamin B12 2020-06-09 Completed [facility] (Cyanocobalamin) (Cyanocobalamin) 14:06:00 [facility] Vitamin B12 Vitamin B12 2020-06-09 Completed [facility] (Cyanocobalamin) (Cyanocobalamin) 14:06:00 [facility] Vitamin B12 Vitamin B12 2020-06-09 Completed [facility] (Cyanocobalamin) (Cyanocobalamin) 14:06: [facility] Vitamin B12 Vitamin B12 2020-06-02 Completed [facility] (Cyanocobalamin) (Cyanocobalamin) 14:19:00 [facility] Vitamin B12 Vitamin B12 2020-06-02 Completed [facility] (Cyanocobalamin) (Cyanocobalamin) 14:19: [facility] Vitamin B12 Vitamin B12 2020-06-02 Completed [facility] (Cyanocobalamin) (Cyanocobalamin) 14:19: [facility] Vitamin B12 Vitamin B12 2020-05-13 Completed [facility] (Cyanocobalamin) (Cyanocobalamin) 14:12: [facility] Vitamin B12 Vitamin B12 2020-05-13 Completed [facility] (Cyanocobalamin) (Cyanocobalamin) 14:12: [facility] Vitamin B12 Vitamin B12 2020-05-13 Completed [facility] (Cyanocobalamin) (Cyanocobalamin) 14:12: [facility] Vitamin B12 Vitamin B12 2020-04-28 Completed [facility] (Cyanocobalamin) (Cyanocobalamin) 09:47:00 [facility] Vitamin B12 Vitamin B12 2020-04-28 Completed [facility] (Cyanocobalamin) (Cyanocobalamin) 09:47:00 [facility] Vitamin B12 Vitamin B12 2020-04-28 Completed [facility] (Cyanocobalamin) (Cyanocobalamin) 09:47:00 [facility] Vitamin B12 Vitamin B12 2020-04-13 Completed [facility] (Cyanocobalamin) (Cyanocobalamin) 15:44:00 [facility] Vitamin B12 Vitamin B12 2020-04-13 Completed [facility] (Cyanocobalamin) (Cyanocobalamin) 15:44: [facility] Vitamin B12 Vitamin B12 2020-04-13 Completed [facility] (Cyanocobalamin) (Cyanocobalamin) 15:44:00 [facility] Vitamin B12 Vitamin B12 2020-03-30 Completed [facility] (Cyanocobalamin) (Cyanocobalamin) 15:59:00 [facility] Vitamin B12 Vitamin B12 2020-03-30 Completed [facility] (Cyanocobalamin) (Cyanocobalamin) 15:59:00 - [facility] Vitamin B12 Vitamin B12 2020-03-30 Completed [facility] (Cyanocobalamin) (Cyanocobalamin) 15:59:00 - [facility] Kenalog Kenalog 2020-03-22 Completed [facility] (Triamcinolone) (Triamcinolone) 10:40:00 - [facility] Kenalog Kenalog 2020-03-22 Completed [facility] (Triamcinolone) (Triamcinolone) 10:40:00 - [facility] Kenalog Kenalog 2020-03-22 Completed [facility] (Triamcinolone) (Triamcinolone) 10:40:00 [facility] Bupivicaine [place] Bupivicaine [place] 2020-03-22 Completed [facility] 10:39:00 - [facility] Bupivicaine [place] Bupivicaine [place] 2020-03-22 Completed [facility] 10:39:00 - [facility] Bupivicaine [place] Bupivicaine [place] 2020-03-22 Completed [facility] 10:39:00 - [facility] Vitamin B12 Vitamin B12 2020-03-16 Completed [facility] (Cyanocobalamin) (Cyanocobalamin) 15:51:00 - [facility] Vitamin B12 Vitamin B12 2020-03-16 Completed [facility] (Cyanocobalamin) (Cyanocobalamin) 15:51:00 - [facility] Vitamin B12 Vitamin B12 2020-03-16 Completed [facility] (Cyanocobalamin) (Cyanocobalamin) 15:51:00 [facility] FLUZONE HIGH DOSE FLUZONE HIGH DOSE 2020-03-02 Completed [facility] OVER 65 OVER 65 17:02:00 - [facility] FLUZONE HIGH DOSE FLUZONE HIGH DOSE 2020-03-02 Completed [facility] OVER 65 OVER 65 17:02:00 - [facility] FLUZONE HIGH DOSE FLUZONE HIGH DOSE 2020-03-02 Completed [facility] OVER 65 OVER 65 17:02:00 - [facility] FLUZONE HIGH DOSE FLUZONE HIGH DOSE 2020-03-02 Completed [facility] OVER 65 OVER 65 17:02:00 - [facility] FLUZONE HIGH DOSE FLUZONE HIGH DOSE 2020-03-02 Completed [facility] OVER 65 OVER 65 17:02:00 - [facility] FLUZONE HIGH DOSE FLUZONE HIGH DOSE 2020-03-02 Completed [facility] OVER 65 OVER 65 17:02:00 - [facility] FLUZONE HIGH DOSE FLUZONE HIGH DOSE 2020-03-02 Completed [facility] OVER 65 OVER 65 17:02:00 - [facility] FLUZONE HIGH DOSE FLUZONE HIGH DOSE 2020-03-02 Completed [facility] OVER 65 OVER 65 17:02:00 - [facility] FLUZONE HIGH DOSE FLUZONE HIGH DOSE 2020-03-02 Completed [facility] OVER 65 OVER 65 17:02:00 - [facility] FLUZONE HIGH DOSE FLUZONE HIGH DOSE 2020-03-02 Completed [facility] OVER 65 OVER 65 17:02:00 - [facility] FLUZONE HIGH DOSE FLUZONE HIGH DOSE 2020-03-02 Completed [facility] OVER 65 OVER 65 17:02:00 - [facility] FLUZONE HIGH DOSE FLUZONE HIGH DOSE 2020-03-02 Completed [facility] OVER 65 OVER 65 17:02:00 - [facility] FLUZONE HIGH DOSE FLUZONE HIGH DOSE 2020-03-02 Completed [facility] OVER 65 OVER 65 17:02:00 - [facility] FLUZONE HIGH DOSE FLUZONE HIGH DOSE 2020-03-02 Completed [facility] OVER 65 OVER 65 17:02:00 - [facility] FLUZONE HIGH DOSE FLUZONE HIGH DOSE 2020-03-02 Completed [facility] OVER 65 OVER 65 17:02:00 - [facility] FLUZONE HIGH DOSE FLUZONE HIGH DOSE 2020-03-02 Completed [facility] OVER 65 OVER 65 17:02:00 - [facility] FLUZONE HIGH DOSE FLUZONE HIGH DOSE 2020-03-02 Completed [facility] OVER 65 OVER 65 17:02:00 - [facility] FLUZONE HIGH DOSE FLUZONE HIGH DOSE 2020-03-02 Completed [facility] OVER 65 OVER 65 17:02:00 - [facility] FLUZONE HIGH DOSE FLUZONE HIGH DOSE 2020-03-02 Completed [facility] OVER 65 OVER 65 17:02:00 - [facility] FLUZONE HIGH DOSE FLUZONE HIGH DOSE 2020-03-02 Completed [facility] OVER 65 OVER 65 17:02:00 - [facility] FLUZONE HIGH DOSE FLUZONE HIGH DOSE 2020-03-02 Completed [facility] OVER 65 OVER 65 17:02:00 - [facility] FLUZONE HIGH DOSE FLUZONE HIGH DOSE 2020-03-02 Completed [facility] OVER 65 OVER 65 17:02:00 - [facility] FLUZONE HIGH DOSE FLUZONE HIGH DOSE 2020-03-02 Completed [facility] OVER 65 OVER 65 17:02:00 - [facility] FLUZONE HIGH DOSE FLUZONE HIGH DOSE 2020-03-02 Completed [facility] OVER 65 OVER 65 17:02:00 - [facility] FLUZONE HIGH DOSE FLUZONE HIGH DOSE 2020-03-02 Completed [facility] OVER 65 OVER 65 17:02:00 - [facility] FLUZONE HIGH DOSE FLUZONE HIGH DOSE 2020-03-02 Completed [facility] OVER 65 OVER 65 17:02:00 - [facility] FLUZONE HIGH DOSE FLUZONE HIGH DOSE 2020-03-02 Completed [facility] OVER 65 OVER 65 17:02:00 - [facility] FLUZONE HIGH DOSE FLUZONE HIGH DOSE 2020-03-02 Completed [facility] OVER 65 OVER 65 17:02:00 - [facility] FLUZONE HIGH DOSE FLUZONE HIGH DOSE 2020-03-02 Completed [facility] OVER 65 OVER 65 17:02:00 - [facility] Vitamin B12 Vitamin B12 2020-03-02 Completed [facility] (Cyanocobalamin) (Cyanocobalamin) 17:02:00 - [facility] FLUZONE HIGH DOSE FLUZONE HIGH DOSE 2020-03-02 Completed [facility] OVER 65 OVER 65 17:02:00 - [facility] FLUZONE HIGH DOSE FLUZONE HIGH DOSE 2020-03-02 Completed [facility] OVER 65 OVER 65 17:02:00 - [facility] FLUZONE HIGH DOSE FLUZONE HIGH DOSE 2020-03-02 Completed [facility] OVER 65 OVER 65 17:02:00 - [facility] FLUZONE HIGH DOSE FLUZONE HIGH DOSE 2020-03-02 Completed [facility] OVER 65 OVER 65 17:02:00 - [facility] FLUZONE HIGH DOSE FLUZONE HIGH DOSE 2020-03-02 Completed [facility] OVER 65 OVER 65 17:02:00 - [facility] FLUZONE HIGH DOSE FLUZONE HIGH DOSE 2020-03-02 Completed [facility] OVER 65 OVER 65 17:02:00 - [facility] FLUZONE HIGH DOSE FLUZONE HIGH DOSE 2020-03-02 Completed [facility] OVER 65 OVER 65 17:02:00 - [facility] Vitamin B12 Vitamin B12 2020-03-02 Com[facility] (Cyanocobalamin) (Cyanocobalamin) 17:02:00 - [facility] FLUZONE HIGH DOSE FLUZONE HIGH DOSE 2020-03-02 Completed [facility] OVER 65 OVER 65 17:02:00 - [facility] Vitamin B12 Vitamin B12 2020-03-02 Completed [facility] (Cyanocobalamin) (Cyanocobalamin) 17:02:00 - [facility] FLUZONE HIGH DOSE FLUZONE HIGH DOSE 2020-03-02 Completed [facility] OVER 65 OVER 65 17:02:00 - [facility] FLUZONE HIGH DOSE FLUZONE HIGH DOSE 2020-03-02 Completed [facility] OVER 65 OVER 65 17:02:00 - [facility] FLUZONE HIGH DOSE FLUZONE HIGH DOSE 2020-03-02 Completed [facility] OVER 65 OVER 65 17:02:00 - [facility] FLUZONE HIGH DOSE FLUZONE HIGH DOSE 2020-03-02 Completed [facility] OVER 65 OVER 65 17:02:00 - [facility] FLUZONE HIGH DOSE FLUZONE HIGH DOSE 2020-03-02 Completed [facility] OVER 65 OVER 65 17:02:00 - [facility] FLUZONE HIGH DOSE FLUZONE HIGH DOSE 2020-03-02 Completed [facility] OVER 65 OVER 65 17:02:00 - [facility] FLUZONE HIGH DOSE FLUZONE HIGH DOSE 2020-03-02 Completed [facility] OVER 65 OVER 65 17:02:00 - [facility] FLUZONE HIGH DOSE FLUZONE HIGH DOSE 2020-03-02 Completed [facility] OVER 65 OVER 65 17:02:00 - [facility] FLUZONE HIGH DOSE FLUZONE HIGH DOSE 2020-03-02 Completed [facility] OVER 65 OVER 65 17:02:00 - [facility] FLUZONE HIGH DOSE FLUZONE HIGH DOSE 2020-03-02 Completed [facility] OVER 65 OVER 65 17:02:00 - [facility] FLUZONE HIGH DOSE FLUZONE HIGH DOSE 2020-03-02 Completed [facility] OVER 65 OVER 65 17:02:00 - [facility] FLUZONE HIGH DOSE FLUZONE HIGH DOSE 2020-03-02 Completed [facility] OVER 65 OVER 65 17:02:00 - [facility] FLUZONE HIGH DOSE FLUZONE HIGH DOSE 2020-03-02 Completed [facility] OVER 65 OVER 65 17:02:00 - [facility] FLUZONE HIGH DOSE FLUZONE HIGH DOSE 2020-03-02 Completed [facility] OVER 65 OVER 65 17:02:00 - [facility] FLUZONE HIGH DOSE FLUZONE HIGH DOSE 2020-03-02 Completed [facility] OVER 65 OVER 65 17:02:00 - [facility] FLUZONE HIGH DOSE FLUZONE HIGH DOSE 2020-03-02 Completed [facility] OVER 65 OVER 65 17:02:00 [facility] Vitamin B12 Vitamin B12 2020-02-20 Com[facility] (Cyanocobalamin) (Cyanocobalamin) 09:11: [facility] Vitamin B12 Vitamin B12 2020-02-20 Completed [facility] (Cyanocobalamin) (Cyanocobalamin) 09:11: [facility] Vitamin B12 Vitamin B12 2020-02-20 Completed [facility] (Cyanocobalamin) (Cyanocobalamin) 09:: [facility] Vitamin B12 Vitamin B12 2020-01-26 Completed [facility] (Cyanocobalamin) (Cyanocobalamin) 13:24: [facility] Vitamin B12 Vitamin B12 2020-01-26 Completed [facility] (Cyanocobalamin) (Cyanocobalamin) 13:24: [facility] Vitamin B12 Vitamin B12 2020-01-26 Completed [facility] (Cyanocobalamin) (Cyanocobalamin) 13:24:00 [facility] Vitamin B12 Vitamin B12 2020-01-15 Completed [facility] (Cyanocobalamin) (Cyanocobalamin) 15:: [facility] Vitamin B12 Vitamin B12 2020-01-15 Completed [facility] (Cyanocobalamin) (Cyanocobalamin) 15:: [facility] Vitamin B12 Vitamin B12 2020-01-15 Completed [facility] (Cyanocobalamin) (Cyanocobalamin) 15:09: [facility] Vitamin B12 Vitamin B12 2019-12-29 Completed [facility] (Cyanocobalamin) (Cyanocobalamin) 16:18: [facility] Vitamin B12 Vitamin B12 2019-12-29 Completed [facility] (Cyanocobalamin) (Cyanocobalamin) 16:18: [facility] Vitamin B12 Vitamin B12 2019-12-29 Completed [facility] (Cyanocobalamin) (Cyanocobalamin) 16:18: [facility] Vitamin B12 Vitamin B12 2019-12-15 Completed [facility] (Cyanocobalamin) (Cyanocobalamin) 15:48:00 [facility] Vitamin B12 Vitamin B12 2019-12-15 Completed [facility] (Cyanocobalamin) (Cyanocobalamin) 15:48: [facility] Vitamin B12 Vitamin B12 2019-12-15 Completed [facility] (Cyanocobalamin) (Cyanocobalamin) 15:48:00 [facility] Vitamin B12 Vitamin B12 2019-12-01 Completed [facility] (Cyanocobalamin) (Cyanocobalamin) 16:57:00 [facility] Vitamin B12 Vitamin B12 2019-12-01 Completed [facility] (Cyanocobalamin) (Cyanocobalamin) 16:57:00 [facility] Vitamin B12 Vitamin B12 2019-12-01 Completed [facility] (Cyanocobalamin) (Cyanocobalamin) 16:57: [facility] Vitamin B12 Vitamin B12 2019-11-17 Completed [facility] (Cyanocobalamin) (Cyanocobalamin) 00:00:00 - [facility] Vitamin B12 Vitamin B12 2019-11-17 Completed [facility] (Cyanocobalamin) (Cyanocobalamin) 00:00: [facility] Vitamin B12 Vitamin B12 2019-11-17 Completed [facility] (Cyanocobalamin) (Cyanocobalamin) 00:00: [facility] Vitamin B12 Vitamin B12 2019-10-30 Completed [facility] (Cyanocobalamin) (Cyanocobalamin) 16:10: [facility] Vitamin B12 Vitamin B12 2019-10-30 Completed [facility] (Cyanocobalamin) (Cyanocobalamin) 16:10: [facility] Vitamin B12 Vitamin B12 2019-10-30 Completed [facility] (Cyanocobalamin) (Cyanocobalamin) 16:10: [facility] Kenalog Kenalog 2019-10-16 Completed [facility] (Triamcinolone) (Triamcinolone) 13:33:00 - [facility] Kenalog Kenalog 2019-10-16 Completed [facility] (Triamcinolone) (Triamcinolone) 13:33:00 - [facility] Kenalog Kenalog 2019-10-16 Completed [facility] (Triamcinolone) (Triamcinolone) 13:33:00 - [facility] Vitamin B12 Vitamin B12 2019-07-08 Completed [facility] (Cyanocobalamin) (Cyanocobalamin) 14:11:00 [facility] Vitamin B12 Vitamin B12 2019-07-08 Completed [facility] (Cyanocobalamin) (Cyanocobalamin) 14:11: [facility] Vitamin B12 Vitamin B12 2019-07-08 Completed [facility] (Cyanocobalamin) (Cyanocobalamin) 14:11: [facility] Vitamin B12 Vitamin B12 2019-06-17 Completed [facility] (Cyanocobalamin) (Cyanocobalamin) 15:37:00 [facility] Vitamin B12 Vitamin B12 2019-06-17 Completed [facility] (Cyanocobalamin) (Cyanocobalamin) 15:37:00 - [facility] Vitamin B12 Vitamin B12 2019-06-17 Completed [facility] (Cyanocobalamin) (Cyanocobalamin) 15:37:00 [facility] Vitamin B12 Vitamin B12 2019-05-07 Completed [facility] (Cyanocobalamin) (Cyanocobalamin) 13:27: [facility] Vitamin B12 Vitamin B12 2019-05-07 Completed [facility] (Cyanocobalamin) (Cyanocobalamin) 13:27: - [facility] Vitamin B12 Vitamin B12 2019-05-07 [facility] (Cyanocobalamin) (Cyanocobalamin) 13:: [facility] 2019-02-11 Completed [facility] (Triamcinolone) (Triamcinolone) 16:18:00 [facility] 2019-02-11 Completed [facility] (Triamcinolone) (Triamcinolone) 16:18:00 - [facility] 2019-02-11 Completed [facility] (Triamcinolone) (Triamcinolone) 16:18:00 [facility] LIDOCAINE HCL LIDOCAINE HCL 2019-02-11 [facility] 10MG/ML 10MG/ML 16:17: [facility] LIDOCAINE HCL LIDOCAINE HCL 2019-02-11 Completed [facility] 10MG/ML 10MG/ML 16:17: [facility] LIDOCAINE HCL LIDOCAINE HCL 2019-02-11 Completed [facility] 10MG/ML 10MG/ML 16:17:00 [facility] 2018-12-17 Completed [facility] (Triamcinolone) (Triamcinolone) 13:45:00 - [facility] 2018-12-17 Com[facility] (Triamcinolone) (Triamcinolone) 13:45:00 [facility] 2018-12-17 Completed [facility] (Triamcinolone) (Triamcinolone) 13:45:00 [facility] 2018-06-25 Completed [facility] (Triamcinolone) (Triamcinolone) 10:58:00 - I [facility] Xochitl Leung 2018-06-25 Completed [facility] (Triamcinolone) (Triamcinolone) 10:58:00 - [facility] Xochitl Leung 2018-06-25 Completed [facility] (Triamcinolone) (Triamcinolone) 10:58:00 - [facility] FluAD FluAD 2018-05-27 Completed [facility] 13:25:00 - [facility] FluAD FluAD 2018-05-27 Completed [facility] 13:25:00 - [facility] FluAD FluAD 2018-05-27 Completed [facility] 13:25:00 - [facility] FluAD FluAD 2018-05-27 Completed [facility] 13:25:00 - [facility] FluAD FluAD 2018-05-27 Completed [facility] 13:25:00 - [facility] FluAD FluAD 2018-05-27 Completed [facility] 13:25:00 - [facility] FluAD FluAD 2018-05-27 Completed [facility] 13:25:00 - [facility] FluAD FluAD 2018-05-27 Completed [facility] 13:25:00 - [facility] FluAD FluAD 2018-05-27 Completed [facility] 13:25:00 - [facility] FluAD FluAD 2018-05-27 Completed [facility] 13:25:00 - [facility] FluAD FluAD 2018-05-27 Completed [facility] 13:25:00 - [facility] FluAD FluAD 2018-05-27 Completed [facility] 13:25:00 - [facility] FluAD FluAD 2018-05-27 Completed [facility] 13:25:00 - [facility] FluAD FluAD 2018-05-27 Completed [facility] 13:25:00 - [facility] FluAD FluAD 2018-05-27 Completed [facility] 13:25:00 - [facility] FluAD FluAD 2018-05-27 Completed [facility] 13:25:00 - [facility] FluAD FluAD 2018-05-27 Completed [facility] 13:25:00 - [facility] FluAD FluAD 2018-05-27 Completed [facility] 13:25:00 - [facility] FluAD FluAD 2018-05-27 Completed [facility] 13:25:00 - [facility] FluAD FluAD 2018-05-27 Completed [facility] 13:25:00 - [facility] FluAD FluAD 2018-05-27 Completed [facility] 13:25:00 - [facility] FluAD FluAD 2018-05-27 Completed [facility] 13:25:00 - [facility] FluAD FluAD 2018-05-27 Completed [facility] 13:25:00 - [facility] FluAD FluAD 2018-05-27 Completed [facility] 13:25:00 - [facility] FluAD FluAD 2018-05-27 Completed [facility] 13:25:00 - [facility] FluAD FluAD 2018-05-27 Completed [facility] 13:25:00 - [facility] FluAD FluAD 2018-05-27 Completed [facility] 13:25:00 - [facility] FluAD FluAD 2018-05-27 Completed [facility] 13:25:00 - [facility] FluAD FluAD 2018-05-27 Completed [facility] 13:25:00 - [facility] FluAD FluAD 2018-05-27 Completed [facility] 13:25:00 - [facility] FluAD FluAD 2018-05-27 Completed [facility] 13:25:00 - [facility] FluAD FluAD 2018-05-27 Completed [facility] 13:25:00 - [facility] FluAD FluAD 2018-05-27 Completed [facility] 13:25:00 - [facility] FluAD FluAD 2018-05-27 Completed [facility] 13:25:00 - [facility] FluAD FluAD 2018-05-27 Completed [facility] 13:25:00 - [facility] FluAD FluAD 2018-05-27 Completed [facility] 13:25:00 - [facility] FluAD FluAD 2018-05-27 Completed [facility] 13:25:00 - [facility] FluAD FluAD 2018-05-27 Completed [facility] 13:25:00 - [facility] FluAD FluAD 2018-05-27 Completed [facility] 13:25:00 - [facility] FluAD FluAD 2018-05-27 Completed [facility] 13:25:00 - [facility] FluAD FluAD 2018-05-27 Completed [facility] 13:25:00 - [facility] FluAD FluAD 2018-05-27 Completed [facility] 13:25:00 - [facility] FluAD FluAD 2018-05-27 Completed [facility] 13:25:00 - [facility] FluAD FluAD 2018-05-27 Completed [facility] 13:25:00 - [facility] FluAD FluAD 2018-05-27 Completed [facility] 13:25:00 - [facility] FluAD FluAD 2018-05-27 Completed [facility] 13:25:00 - [facility] FluAD FluAD 2018-05-27 Completed [facility] 13:25:00 - [facility] FluAD FluAD 2018-05-27 Completed [facility] 13:25:00 - [facility] FluAD FluAD 2018-05-27 Completed [facility] 13:25:00 - [facility] FluAD FluAD 2018-05-27 Completed [facility] 13:25:00 - [facility] FluAD FluAD 2018-05-27 Completed [facility] 13:25:00 - [facility] FluAD FluAD 2018-05-27 Completed [facility] 13:25:00 - [facility] FluAD FluAD 2018-05-27 Completed [facility] 13:25:00 - [facility] FluAD FluAD 2018-05-27 Completed [facility] 00:00:00 - [facility] Vital Signs Vital Name Observation Time Observation Value Comments Source height 2022-05-05 14:00:00 64.5 [in_i] Common [facility] weight 2022-05-05 14:00:00 195.0 [lb_av] Common [facility] temperature 2022-05-05 14:00:00 97.2 [degF] [facility] bmi 2022-05-05 14:00:00 32.95 kg/m2 [facility] oximetry 2022-05-05 14:00:00 97 % [facility] respiratory rate 2022-05-05 14:00:00 18 /min Comm on [facility] blood pressure 2022-05-05 14:00:00 130 mm[Hg] Common [facility] - systolic [facility] blood pressure 2022-05-05 14:00:00 70 mm[Hg] Common [facility] - diastolic [facility] height 2022-03-30 10:00:00 64.5 [in_i] [facility] weight 2022-03-30 10:00:00 198.6 [lb_av] [facility] temperature 2022-03-30 10:00:00 97.5 [degF] [facility] bmi 2022-03-30 10:00:00 33.56 kg/m2 [facility] oximetry 2022-03-30 10:00:00 97 % [facility] respiratory rate 2022-03-30 10:00:00 18 /min Comm on [facility] blood pressure 2022-03-30 10:00:00 138 mm[Hg] Common [facility] - systolic [facility] blood pressure 2022-03-30 10:00:00 71 mm[Hg] Common [facility] diastolic [facility] Systolic blood 2022-03-02 00:31:00 179 mm[Hg] Univer sity of pressure [facility] Diastolic blood 2022-03-02 00:31:00 84 mm[Hg] Unive rsity of pressure [facility] Heart rate 2022-03-02 00:31:00 71 /min [facility] of [facility] Respiratory rate 2022-03-02 00:31:00 18 /min Univ ersity [facility] Oxygen saturation in 2022-03-02 00:31:00 97 /min [facility] Arterial blood by [facility] Pulse oximetry Branch Body temperature 2022-03-01 22:45:00 36.39 [facility] Body height 2022-03-01 22:45:00 162.6 cm [facility] Body weight 2022-03-01 22:45:00 90.719 kg [facility] BMI 2022-03-01 22:45:00 34.33 kg/m2 [facility] height 2022-02-10 09:00:00 64.5 [in_i] Common [facility] weight 2022-02-10 09:00:00 202.3 [lb_av] [facility] temperature 2022-02-10 09:00:00 97.1 [degF] [facility] bmi 2022-02-10 09:00:00 34.18 kg/m2 [facility] oximetry 2022-02-10 09:00:00 97 % [facility] respiratory rate 2022-02-10 09:00:00 16 /min Comm on [facility] blood pressure 2022-02-10 09:00:00 132 mm[Hg] Common [facility] - systolic [facility] blood pressure 2022-02-10 09:00:00 75 mm[Hg] [facility] diastolic [facility] height 2022-01-25 08:10:00 64.5 [in_i] Common [facility] weight 2022-01-25 08:10:00 210 [lb_av] [facility] temperature 2022-01-25 08:10:00 97.2 [degF] [facility] bmi 2022-01-25 08:10:00 35.49 kg/m2 [facility] oximetry 2022-01-25 08:10:00 98 % [facility] respiratory rate 2022-01-25 08:10:00 17 /min Comm on [facility] blood pressure 2022-01-25 08:10:00 138 mm[Hg] Common [facility] - systolic [facility] blood pressure 2022-01-25 08:10:00 76 mm[Hg] [facility] - diastolic [facility] height 2022-01-11 08:30:00 64.5 [in_i] Common [facility] weight 2022-01-11 08:30:00 210.2 [lb_av] Common [facility] - [facility] temperature 2022-01-11 08:30:00 97.3 [degF] [facility] bmi 2022-01-11 08:30:00 35.52 kg/m2 [facility] oximetry 2022-01-11 08:30:00 96 % Common [facility] respiratory rate 2022-01-11 08:30:00 17 /min Comm on [facility] blood pressure 2022-01-11 08:30:00 132 mm[Hg] [facility] - systolic [facility] blood pressure 2022-01-11 08:30:00 67 mm[Hg] Common [facility] - diastolic [facility] height 2021-12-27 08:20:00 64.5 [in_i] Common [facility] weight 2021-12-27 08:20:00 207 [lb_av] [facility] temperature 2021-12-27 08:20:00 97.7 [degF] [facility] bmi 2021-12-27 08:20:00 34.98 kg/m2 [facility] oximetry 2021-12-27 08:20:00 98 % [facility] respiratory rate 2021-12-27 08:20:00 18 /min Comm on [facility] blood pressure 2021-12-27 08:20:00 137 mm[Hg] [facility] - systolic [facility] blood pressure 2021-12-27 08:20:00 83 mm[Hg] [facility] - diastolic [facility] height 2021-12-12 13:30:00 64.5 [in_i] [facility] weight 2021-12-12 13:30:00 210.6 [lb_av] Common [facility] temperature 2021-12-12 13:30:00 97.5 [degF] [facility] bmi 2021-12-12 13:30:00 35.59 kg/m2 [facility] oximetry 2021-12-12 13:30:00 96 % Common [facility] respiratory rate 2021-12-12 13:30:00 17 /min Comm on [facility] blood pressure 2021-12-12 13:30:00 139 mm[Hg] Common [facility] - systolic [facility] blood pressure 2021-12-12 13:30:00 78 mm[Hg] Common [facility] - diastolic [facility] height 2021-11-28 13:30:00 64.5 [in_i] Common [facility] weight 2021-11-28 13:30:00 210.2 [lb_av] [facility] temperature 2021-11-28 13:30:00 97.5 [degF] Common [facility] bmi 2021-11-28 13:30:00 35.52 kg/m2 [facility] oximetry 2021-11-28 13:30:00 95 % [facility] respiratory rate 2021-11-28 13:30:00 17 /min Comm on [facility] blood pressure 2021-11-28 13:30:00 139 mm[Hg] Common [facility] - systolic [facility] blood pressure 2021-11-28 13:30:00 72 mm[Hg] Common [facility] - diastolic [facility] BP Diastolic 2021-10-17 00:00:00 84 mm[Hg] [facility] Height 2021-10-17 00:00:00 64 [in_i] [facility] BMI (Body Mass 2021-10-17 00:00:00 34.3 kg/m2 [facility] Index[facility] Urology BP Systolic 2021-10-17 00:00:00 132 mm[Hg] [facility] Body Weight 2021-10-17 00:00:00 200 [lb_av] [facility] height 2021-10-06 11:20:00 64.5 [in_i] Common [facility] weight 2021-10-06 11:20:00 212.9 [lb_av] [facility] temperature 2021-10-06 11:20:00 97.2 [degF] [facility] bmi 2021-10-06 11:20:00 35.98 kg/m2 [facility] oximetry 2021-10-06 11:20:00 95 % [facility] respiratory rate 2021-10-06 11:20:00 16 /min Comm on [facility] blood pressure 2021-10-06 11:20:00 163 mm[Hg] Common [facility] - systolic [facility] blood pressure 2021-10-06 11:20:00 87 mm[Hg] Common [facility] diastolic [facility] height 2021-10-06 11:00:00 64.5 [in_i] [facility] weight 2021-10-06 11:00:00 212.9 [lb_av] [facility] temperature 2021-10-06 11:00:00 97.2 [degF] [facility] bmi 2021-10-06 11:00:00 35.98 kg/m2 [facility] oximetry 2021-10-06 11:00:00 95 % [facility] respiratory rate 2021-10-06 11:00:00 16 /min Comm on [facility] blood pressure 2021-10-06 11:00:00 138 mm[Hg] [facility] - systolic [facility] blood pressure 2021-10-06 11:00:00 78 mm[Hg] [facility] - diastolic [facility] BP Diastolic 2021-10-03 00:00:00 82 mm[Hg] [facility] Height 2021-10-03 00:00:00 64 [in_i] [facility] BMI (Body Mass 2021-10-03 00:00:00 34.3 [facility] BP Systolic 2021-10-03 00:00:00 136 mm[Hg] [facility] Body Weight 2021-10-03 00:00:00 200 [lb_av] [facility] height 2021-09-28 15:30:00 64.5 [in_i] [facility] weight 2021-09-28 15:30:00 217 [lb_av] [facility] temperature 2021-09-28 15:30:00 98 [degF] [facility] bmi 2021-09-28 15:30:00 36.67 kg/m2 [facility] blood pressure 2021-09-28 15:30:00 132 mm[Hg] [facility] - systolic [facility] blood pressure 2021-09-28 15:30:00 70 mm[Hg] [facility] - diastolic [facility] HEIGHT 2021-09-21 21:23:00 162.6 cm WEIGHT 2021-09-21 21:23:00 95.255 kg HEIGHT 2021-09-21 21:23:00 162.6 cm WEIGHT 2021-09-21 21:23:00 95.255 kg HEIGHT 2021-09-21 21:23:00 162.6 cm WEIGHT 2021-09-21 21:23:00 95.255 kg height 2021-09-15 13:30:00 64.5 [in_i] [facility] weight 2021-09-15 13:30:00 219.4 [lb_av] [facility] - [facility] temperature 2021-09-15 13:30:00 97.2 [degF] Common [facility] bmi 2021-09-15 13:30:00 37.07 kg/m2 [facility] oximetry 2021-09-15 13:30:00 97 % Common [facility] respiratory rate 2021-09-15 13:30:00 17 /min Comm on [facility] blood pressure 2021-09-15 13:30:00 138 mm[Hg] Common [facility] - systolic [facility] blood pressure 2021-09-15 13:30:00 75 mm[Hg] Common [facility] - diastolic [facility] height 2021-08-31 09:40:00 64.5 [in_i] [facility] weight 2021-08-31 09:40:00 217.8 [lb_av] [facility] temperature 2021-08-31 09:40:00 97.2 [degF] Common [facility] bmi 2021-08-31 09:40:00 36.8 kg/m2 [facility] oximetry 2021-08-31 09:40:00 89 % Common [facility] respiratory rate 2021-08-31 09:40:00 16 /min Comm on [facility] blood pressure 2021-08-31 09:40:00 134 mm[Hg] Common [facility] - systolic [facility] blood pressure 2021-08-31 09:40:00 71 mm[Hg] Common [facility] - diastolic [facility] height 2021-08-18 15:10:00 64.5 [in_i] Common [facility] weight 2021-08-18 15:10:00 218.3 [lb_av] [facility] temperature 2021-08-18 15:10:00 98.1 [degF] [facility] bmi 2021-08-18 15:10:00 36.89 kg/m2 [facility] oximetry 2021-08-18 15:10:00 94 % Common [facility] respiratory rate 2021-08-18 15:10:00 16 /min Comm on [facility] blood pressure 2021-08-18 15:10:00 138 mm[Hg] Common [facility] - systolic [facility] blood pressure 2021-08-18 15:10:00 72 mm[Hg] Common [facility] - diastolic [facility] height 2021-07-21 08:40:00 64.5 [in_i] Common [facility] weight 2021-07-21 08:40:00 220.8 [lb_av] [facility] temperature 2021-07-21 08:40:00 97.2 [degF] Common [facility] bmi 2021-07-21 08:40:00 37.31 kg/m2 [facility] oximetry 2021-07-21 08:40:00 96 % [facility] respiratory rate 2021-07-21 08:40:00 17 /min Comm on [facility] blood pressure 2021-07-21 08:40:00 145 mm[Hg] [facility] systolic [facility] blood pressure 2021-07-21 08:40:00 73 mm[Hg] Common [facility] diastolic [facility] height 2021-07-13 11:40:00 64.5 [in_i] Common [facility] weight 2021-07-13 11:40:00 219.1 [lb_av] [facility] temperature 2021-07-13 11:40:00 97.9 [degF] [facility] bmi 2021-07-13 11:40:00 37.02 kg/m2 [facility] oximetry 2021-07-13 11:40:00 96 % Common [facility] respiratory rate 2021-07-13 11:40:00 16 /min Comm on [facility] blood pressure 2021-07-13 11:40:00 138 mm[Hg] Common [facility] - systolic [facility] blood pressure 2021-07-13 11:40:00 71 mm[Hg] [facility] - diastolic [facility] height 2021-05-13 10:40:00 64.5 [in_i] Common [facility] weight 2021-05-13 10:40:00 221 [lb_av] [facility] temperature 2021-05-13 10:40:00 98 [degF] [facility] bmi 2021-05-13 10:40:00 37.34 kg/m2 [facility] oximetry 2021-05-13 10:40:00 98 % [facility] respiratory rate 2021-05-13 10:40:00 18 /min Comm on [facility] blood pressure 2021-05-13 10:40:00 129 mm[Hg] Common [facility] - systolic [facility] blood pressure 2021-05-13 10:40:00 68 mm[Hg] Common [facility] - diastolic [facility] height 2021-03-21 10:30:00 64.5 [in_i] [facility] weight 2021-03-21 10:30:00 221 [lb_av] [facility] bmi 2021-03-21 10:30:00 37.34 kg/m2 [facility] Systolic blood 2022-03-09 21:03:00 138 mm[Hg] [facility] pressure Diastolic blood 2022-03-09 21:03:00 63 mm[Hg] [facility] pressure Heart rate 2022-03-09 21:03:00 86 /min [facility] Body temperature 2022-03-09 21:03:00 36.5 Sheyla [facility] Respiratory rate 2022-03-09 21:03:00 17 /min [facility] Oxygen saturation in 2022-03-09 21:03:00 95 /min [facility] Arterial blood by Pulse oximetry Body height 2022-03-07 20:32:00 162.6 cm [facility] Body weight 2022-03-07 20:32:00 89.268 kg [facility] BMI 2022-03-07 20:32:00 33.78 kg/m2 [facility] Body weight 2022-02-06 20:28:00 90.719 kg [facility] BMI 2022-02-06 20:28:00 34.33 kg/m2 [facility] Body height 2022-02-06 20:28:00 162.6 cm [facility] Systolic blood 2021-09-24 07:00:00 149 mm[Hg] [facility] Diastolic blood 2021-09-24 07:00:00 68 mm[Hg] [facility] Heart rate 2021-09-24 07:00:00 79 /min [facility] Body temperature 2021-09-24 07:00:00 36.22 Sheyla [facility] Respiratory rate 2021-09-24 07:00:00 18 /min [facility] Oxygen saturation in 2021-09-24 07:00:00 96 /min [facility] Arterial blood by [facility] Pulse oximetry Body height 2021-09-21 21:23:00 162.6 cm [facility] Body weight 2021-09-21 21:23:00 95.255 kg [facility] BMI 2021-09-21 21:23:00 36.05 kg/m2 [facility] Procedures Procedure Date / Time Performing Clinician Source Performed MRI SHOULDER W CONTRAST 2022-05-03 22:59:09 Osmar Rouse [facility] LEFT FL ARTHROGRAM SHOULDER 2022-05-03 20:34:[address] [facility] LEFT XR WRIST 2 VW LEFT 2022-04-14 21:23:12 RouseOsmar [facility] XR WRIST 2 VW LEFT 2022-03-16 15:25:20 Osmar Rouse [facility] CO AN ELECTIVE 2022-03-09 18:56:00 Mary Pemberton [facility] SUPRAGLOTTIC AIRWAY Vee Moore CARPAL TUNNEL RELEASE, 2022-03-09 18:39:00 Rouse, [facility] ENDOSCOPIC ORIF, FRACTURE, RADIUS, 2022-03-09 18:39:00 Rouse, [facility] DISTAL HC NERVE BLOCK, 2022-03-09 17:43:00 Dottie Young [facility] INTERSCALENE W IMG GUID POC GLUCOSE 2022-03-09 16:47:00 Rouse, [facility] ECG PRE/POST OP 2022-03-07 20:54:21 [facility] ospital BASIC METABOLIC PANEL 2022-03-07 20:44:00 [facility] CBC WITH PLATELET AND 2022-03-07 20:44:00 [facility] DIFFERENTIAL HEMOGLOBIN A1C 2022-03-07 20:44:00 [facility] ospital PROTHROMBIN TIME WITH INR 2022-03-07 20:44:00 [facility] PARTIAL THROMBOPLASTIN 2022-03-07 20:44:00 [facility] TIME (PTT) ESTIMATED GFR 2022-03-07 20:44:00 [facility] ospital COVID-19 QUALITATIVE 2022-03-07 20:44:[address] [facility] RT-PCR XR WRIST 3+ VW LEFT 2022-03-07 19:05:01 [facility] CO APPLY FOREARM 2022-03-02 00:17:[address] [facility] SPLINT,STATIC Medical Branch CO STRAPPING OF ELBOW OR 2022-03-02 00:17:20 Garrett Chávez [facility] WRIST Medical Branch NOTICE OF PRIVACY 2022-03-01 22:30:12 Doctor Mitul, [facility] PRACTICES [facility] CONSENT/REFUSAL FOR 2022-03-01 22:29:08 Doctor Mitul, [facility] DIAGNOSIS AND TREATMENT [facility] CT, abdomen + pelvis, w/o 2021-10-03 00:00:00 Lalo Snyder contrast Urology CBC W/PLT COUNT & AUTO 2021-09-24 05:48:00 Alexandro, Sumanth Coreas [facility] DIFFERENTIAL [place] BASIC METABOLIC PANEL 2021-09-24 05:48:00 Alexandro Sumanth Ezio [facility] MAGNESIUM 2021-09-24 05:48:00 [facility] 2021-09-24 05:48:00 [facility] W/PLT COUNT & AUTO 2021-09-24 05:48:00 Maribell Suresh [facility] CBC W/PLT COUNT & AUTO 2021-09-23 05:05:00 AlexandroSumanth [facility] BASIC METABOLIC PANEL 2021-09-23 05:05:00 AlexandroSumanth [facility] MAGNESIUM 2021-09-23 05:05:00 Alexandro Sumanth Ezio [facility] PHOSPHORUS 2021-09-23 05:05:00 Alexandro [facility] CBC W/PLT COUNT & AUTO 2021-09-23 05:05[facility]00 [facility] [place] FLUORO NON-SPECIFIC UP 2021-09-22 19:00:00 Sumanth [facility] TO 1 [facility] Center CYSTOSCOPY, WITH URETERAL 2021-09-22 18:19:00 Sumanth [facility] STENT INSERTION Center URINE CULTURE 2021-09-22 04:42:00 [facility] URINALYSIS W/ REFLEX URINE 2021-09-22 04:42:00 Nanda Dubon [facility] CULTURE iru [place] BLOOD CULTURE 2021-09-22 00:10:00 Randy [facility] COMPREHENSIVE METABOLIC 2021-09-22 00:07:00 Randy [facility] Medical PANEL [facility] CBC W/PLT COUNT & AUTO 2021-09-22 00:07:00 Nanda Dubon [facility] DIFFERENTIAL [facility] MAGNESIUM 2021-09-22 00:07:00 [facility] PHOSPHORUS 2021-09-22 00:07:00 Randy [facility] PROTHROMBIN TIME/INR 2021-09-22 00:07:00 Randy [facility] LACTIC ACID, VENOUS 2021-09-22 00:07:00 [facility] CBC W/PLT COUNT & AUTO 2021-09-22 00:07:00 [facility] BLOOD CULTURE 2021-09-21 23:58:00 Randy [facility] Hysterectomy [facility] Cholecystectomy [facility] Plan of Care Planned Activity Planned Date Details Comments Source Future Scheduled 2022-09-21 Tobacco Cessation [facility] Test 00:00:00 Counseling and Medical Cente r Screening (12+) [code = Tobacco Cessation Counseling and Screening (12+)] Future Scheduled 2022-06-06 COVID-19 VACCINE (#1) [facility] Test 13:43:44 [code = COVID-19 VACCINE (#1)] Future Scheduled 2022-06-06 Hepatitis C screening [facility] Test 13:43:44 (procedure) [code = 084018100] Future Scheduled 2022-06-06 BREAST CANCER [facility] Test 13:43:44 SCREENING [code = BREAST CANCER SCREENING] Future Scheduled 2022-06-[address] [facility] Test 13:43:44 [code = COLONOSCOPY SCREENING] Future Scheduled 2022-06-06 SHINGLES VACCINES (1 [facility] Test 13:43:44 of 2) [code = SHINGLES VACCINES (1 of 2)] Future Scheduled 2022-06-06 65+ [facility]OCOCCAL [facility] Test 13:43:44 VACCINE (1 - PCV) [code = 65+ PNEUMOCOCCAL VACCINE (1 - PCV)] Future Scheduled 2022-06-06 INFLUENZA VACCINE Method [facility] Test 13:43:44 [code = INFLUENZA VACCINE] Future Scheduled 2022-04-[address] [facility] Test 00:00:00 (12+) [code = Medical Center DEPRESSION SCREENING (12+)] Future Scheduled 2022-04-30 FALLS RISK SCREENING [facility] Test 00:00:00 [code = FALLS RISK Medical C enter SCREENING] Future Scheduled 2022-02-06 HEPATITIS B VACCINES Met [facility] Test 20:01:45 (1 of 3 - 3-dose series) [code = HEPATITIS B VACCINES (1 of 3 - 3-dose series)] Future Scheduled 2022-02-06 COVID-19 VACCINE (#1) [facility] Test 20:01:45 [code = COVID-19 VACCINE (#1)] Future Scheduled 2022-02-06 Hepatitis C screening [facility] Test 20:01:45 (procedure) [code = 558284184] Future Scheduled 2022-02-06 BREAST CANCER [facility] Test 20:01:45 SCREENING [code = BREAST CANCER SCREENING] Future Scheduled 2022-02-[address] [facility] Test 20:01:45 [code = COLONOSCOPY SCREENING] Future Scheduled 2022-02-06 SHINGLES VACCINES ([address] [facility] Test 20:01:45 of 2) [code = SHINGLES VACCINES (1 of 2)] Future Scheduled 2022-02-06 65+ P[facility]UMOCOCCAL [facility] Test 20:01:45 VACCINE (1 - PCV) [code = 65+ PNEUMOCOCCAL VACCINE (1 - PCV)] Future Scheduled 2022-02-06 INFLUENZA VACCINE Method [facility] Test 20:01:45 [code = INFLUENZA VACCINE] Future Scheduled 2021-12-29 INFLUENZA VACCINE (#1) [facility] Test 00:00:00 [code = INFLUENZA Medical Ce nter VACCINE (#1)] Diagnostic Test 2021-10-17 urinalysis, dipstick [place] [facility] Pending 00:00:00 [code = urinalysis, Urology dipstick] Diagnostic Test 2021-10-17 culture, urine + [place] [facility] Pending 00:00:00 sensitivity [code = Urology culture, urine + sensitivity] Future Scheduled 2021-09-[address] [facility] Test 00:00:00 WELLNESS (YEAR 2 or Medical Center FIRST YEAR if no IPPE) [code = MEDICARE ANNUAL WELLNESS (YEAR 2 or FIRST YEAR if no IPPE)] Future Scheduled 2012-08-07 PNEUMOCOCCAL 65+ YRS [facility] Test 00:00:00 (1 - PCV) [code = Medical Ce nter PNEUMOCOCCAL 65+ YRS (1 - PCV)] Future Scheduled 1997-08-07 SHINGLES VACCINES ([address] [facility] Test 00:00:00 of 2) [code = SHINGLES Medic al Center VACCINES (1 of 2)] Future Scheduled 1966-08-07 DTAP/TDAP/TD VACCINES [facility] Test 00:00:00 (1 - Tdap) [code = Medical C enter DTAP/TDAP/TD VACCINES (1 - Tdap)] Future Scheduled 1965-08-07 HEPATITIS C SCREENING [facility] Test 00:00:00 [code = HEPATITIS C Medical Center SCREENING] Future Scheduled 1948-02-07 COVID-19 VACCINE (#1) [facility] Test 00:00:00 [code = COVID-[address] VACCINE (#1)] Future Scheduled [address] [facility] Test 00:00:00 malignant neoplasm of Medica l Center breast (procedure) [code = 027006530] Future Scheduled [address] [facility] Test 00:00:00 (combo) [code = CT Medical C enter Colonography (combo)] Future Scheduled [address] [facility] Test 00:00:00 malignant neoplasm of Medica l Center colon (procedure) [code = 322992765] Future Scheduled [address] [facility] Test 00:00:00 malignant neoplasm of Medica l Center colon (procedure) [code = 578365581] Future Scheduled 1947 DXA SCAN [code = DXA [facility] Test 00:00:00 SCAN] Medical Center Future Scheduled [address] [facility] [facility] Test 00:00:00 malignant neoplasm of Medica l Center colon (procedure) [code = 231611872] Future Scheduled [address] [facility] [facility] Test 00:00:00 malignant neoplasm of Medica l Center colon (procedure) [code = 903826244] Future Scheduled 1947 Sigmoidoscopy [code = CH I [facility] Test 00:00:00 Sigmoidoscopy] Medical Cente r Encounters Start End Encounter Admission Attending Care Care Encounter Source Date/Time Date/Time Type Type Clinicians Facility Department ID 2022-05-02 Outpatient Felder, [facility] [id number] Common 09:14:00 Jaziel [id number] [facility] 2022-03-16 Outpatient Felder, STLMLC STLC [id number] Common 10:57:01 Jaziel [facility] 2021-11-15 Outpatient Felder, [facility] [id number] Common 10:22:00 Jaziel [facility] 2021-08-31 Outpatient Felder, [facility] [id number] Common 08:13:00 Jaziel [facility] 2021-08-29 Outpatient Felder, [facility] [id number] Common 16:06:01 Jaziel [facility] 2021-08-02 Outpatient Felder, STLMLC STLC [id number] Common 15:06:01 Jaziel [facility] 2021-07-13 Outpatient Felder, [facility] [id number] Common 11:40:00 Jaziel [facility] 2021-05-25 Outpatient Felder, STLMLC STLC [id number] Common 14:11:12 Jaziel [id number] [facility] 2021-05-25 Outpatient Felder, STLMLC STLC [id number] Common 13:59:47 Jaziel [id number] [facility] 2021-05-25 Outpatient Felder, STLMLC STLC [id number] Common 13:46:37 Jaziel [id number] [facility] 2021-05-25 Outpatient Felder, [facility]C [facility] [id number] Common 13:43:52 Jaziel [id number] [facility] 2021-05-25 Outpatient Felder, STLMLC STLC [id number] Common 13:36:49 Jaziel [id number] [facility] 2021-05-25 Outpatient Felder, STLMLC STLMLC [id number] Common 12:50:14 Jaziel [id number] [facility] 2021-05-25 Outpatient Felder, STLMLC STLMLC [id number] Common 12:30:16 Jaziel [id number] [facility] 2021-05-25 Outpatient Felder, STLMLC ST[facility]C [id number] Common 12:29:57 Jaziel [id number] [facility] 2021-05-25 Outpatient Felder, STLMLC STLC [id number] Common 12:28:23 Jaziel [id number] [facility] 2021-05-25 Outpatient Felder, STLMLC STLC [id number] Common 12:08:37 Jaziel [id number] [facility] 2021-05-25 Outpatient Feldre, STLMLC STLC [id number] Common 12:07:28 Jaziel [id number] [facility] 2021-05-25 Outpatient Felder, STLMLC STLC [id number] Common 12:01:53 Jaziel [id number] [facility] 2021-05-25 Outpatient Felder, STLMLC STLC [id number] Common 12:01:48 Jaziel [id number] [facility] 2021-05-25 Outpatient Felder, STLMLC STLMLC [id number] Common 11:49:47 Jaziel [id number] [facility] 2021-05-25 Outpatient Felder, STLMLC STLMLC [id number] Common 11:34:35 Jaziel [id number] [facility] 2021-05-25 Outpatient Felder, STLMLC STLC [id number] Common 11:27:18 Jaziel [id number] [facility] 2021-05-25 Outpatient Felder, STLMLC STLC [id number] Common 11:17:40 Jaziel [id number] [facility] 2021-05-25 Outpatient Felder, STLMLC STLMLC [id number] Common 11:17:19 [facility] [id number] [facility] 2021-05-[address] [facility] [id number] Common 10:57:41 [facility] 71756 [facility] 2022-05-26 2022-05-26 Treatment RouseOsmar noble 1.2.840.1 [id number] Methodi 15:00:00 16:00:00 Leena Singleton 20785.1.1 732 s t 3.430.2.7 Hospit a .3.303410 l .8 2022-05-26 2022-05-26 Outpatient ROUSE, [facility] [id number] [place] 00:00:00 00:00:00 OSMAR 732 Method i 2022-05-18 2022-05-18 Office Rouse, 1.2.840.1 [id number] Methodi 08:40:00 09:09:39 Visit Osmar 18198.1.[address] Dank 3.430.2.7 Hospit a .3.871293 l .8 2022-05-18 2022-05-18 Outpatient ROUSE, [facility] [id number] [place] 00:00:00 00:00:00 OSMAR 755 Method i 2022-05-18 2022-05-18 Outpatient ROUSE, [facility] [id number] [place] 00:00:00 00:00:00 OSMAR 600 Method i 2022-05-18 2022-05-18 Travel 1.2.840.1 1.2.621.417 4230 [id number] Methodi 00:00:00 00:00:[address] 3.430.2.7 0.2.7.3.698 Ho spita .3.409273 084.8 l .8 2022-05-09 2022-05-09 Treatment RouseOsmar 1.2.840.1 104 [id number] Methodi 11:00:00 12:00:00 Leena Singleton 70980.1.1 727 s t 3.430.2.7 Hospit a .3.659361 l .8 2022-05-09 2022-05-09 Outpatient ROUSE, [facility] [id number] [place] 00:00:00 00:00:00 VINCENT 727 Method i 2022-05-05 2022-05-05 OFF[facility] [id number] Co mmon 00:00:00 00:00:00 VISIT Spirit ESTAB PT - CHI LEVEL [address] [facility] 2022-05-03 2022-05-03 [facility], 1.2.840.1 [id number] Methodi 14:45:00 23:59:00 Encounter Osmar 90545.1.[address] Dank 3.430.2.7 Hospit a .3.261751 l .8 2022-05-03 2022-05-03 [facility], 1.2.840.1 [id number] Methodi 13:05:56 14:44:00 Encounter Osmar 15880.1.[address] Dank 3.430.2.7 Hospit a .3.972742 l .8 2022-05-03 2022-05-03 Travel 1.2.840.1 1.2.672.368 6971 [id number] Methodi 00:00:00 00:00:[address] 3.430.2.7 0.2.7.3.698 Ho spita .3.595128 084.8 l .8 2022-05-03 2022-05-03 Outpatient ROUSE, [facility] [id number] [place] 00:00:00 00:00:00 VINCENT 848 Method i 2022-05-03 2022-05-03 Outpatient [facility] [id number] 259 [place] 00:00:00 00:00:00 VINCENT 847 Method i 2022-04-28 2022-04-28 Evaluation Rouse Vikaswetha Dank 1.2.840.1 10 [id number] Methodi 13:00:00 14:00:00 Leena Singleton 08545.1.1 290 s t 3.430.2.7 Hospit a .3.039978 l .8 2022-04-28 2022-04-28 Plan of 1.2.840.1 [id number] 4085 Methodi 00:00:00 00:00:[address] Documentat 3.430.2.7 Hos annmarie ion .3.649366 l .8 2022-04-28 2022-04-28 Outpatient ROUSE, [facility] [id number] [place] 00:00:00 00:00:00 VINCSWETHA [address] 2022-04-27 2022-04-27 (TEL) STLMLC STLMLC [id number] Co mmon 00:00:00 00:00:00 Spirit [facility] 2022-04-14 2022-04-14 Office Rouse, 1.2.840.1 [id number] 8176 Methodi 15:20:00 16:16:24 Visit Vincent 81222.1.[address] Dank 3.430.2.7 Hospit a .3.997694 l .8 2022-04-14 2022-04-14 Outpatient ROUSE, [facility] [id number] [place] 00:00:00 00:00:[address] V[address]HA [address] 2022-04-14 2022-04-14 Travel 1.2.840.1 1.2.990.255 9347 [id number] Methodi 00:00:00 00:00:[address] 3.430.2.7 0.2.7.3.698 Ho spita .3.361548 084.8 l .8 2022-04-14 2022-04-14 Outpatient ROUSE, [facility] [id number] [place] 00:00:00 00:00:00 VINCENT [address] 2022-04-13 2022-04-13 (INJ) STLMLC STLMLC [id number] Co mmon 00:00:00 00:00:00 Injection Spir it - [facility] 2022-03-31 2022-03-31 Travel 1.2.840.1 1.2.280.728 0258 [id number] Methodi 00:00:00 00:00:[address] 3.430.2.7 0.2.7.3.698 Ho spita .3.418259 084.8 l .8 2022-03-30 2022-03-30 OFFICE STLMLC STLMLC [id number] Co mmon 00:00:00 00:00:00 VISIT Spirit ESTAB PT - CHI LEVEL [address] [facility] 2022-03-16 2022-03-16 Office Rouse, 1.2.840.1 [id number] Methodi 09:10:00 10:13:42 Visit Osmar 17057.1.[address] Dank 3.430.2.7 Hospit a .3.039883 l .8 2022-03-16 2022-03-16 Outpatient ROUSE, [facility] [id number] [place] 00:00:00 00:00:00 VINCENT [address] 2022-03-16 2022-03-16 Outpatient ROUSE, [facility] [id number] [place] 00:00:00 00:00:00 VINCENT [address] 2022-03-16 2022-03-16 Travel 1.2.840.1 1.2.100.717 5442 [id number] Methodi 00:00:00 00:00:[address] 3.430.2.7 0.2.7.3.698 Ho spita .3.534833 084.8 l .8 2022-03-10 2022-03-10 Telephone Hector, 1.2.840.1 [id number] 2099 [id number] Methodi 00:00:00 00:00:[address] Jeanie 3.430.2.7 Hospit a .3.363229 l .8 2022-03-10 2022-03-10 Telephone Paula, 1.2.840.1 [id number] 2099 628345 Methodi 00:00:00 00:00:[address] 3.430.2.7 Hospit a .3.297739 l .8 2022-03-10 2022-03-10 Telephone Mitchell, 1.2.840.1 [id number] 2100 [id number] Methodi 00:00:00 00:00:[address] 3.430.2.7 Hospit a .3.637497 l .8 2022-03-09 2022-03-09 Hospital [facility], 1.2.840.1 [id number] 70294 Methodi 09:31:00 15:38:00 Encounter Vincent 87510.1.[address] Dank 3.430.2.7 Hospit a .3.444041 l .8 2022-03-09 2022-03-09 Anesthesia Dottie Young 1.2.840.1 1 [id number] Methodi 12:39:00 14:00:00 Event Shannan Nicolas 68120.1.[address] 3.430.2.7 Hospit a .3.411690 l .8 2022-03-09 2022-03-09 Surgery [facility], 1.2.840.1 [id number] 5573 Methodi 12:15:00 13:55:[address] Dank 3.430.2.7 Hospit a .3.089476 l .8 2022-03-09 2022-03-09 Outpatient [facility] 527 [id number] 318 [place] 00:00:00 00:00:00 VINCENT [address] 2022-03-09 2022-03-09 Travel 1.2.840.1 1.2.493.996 2245 235385 Methodi 00:00:00 00:00:[address] 3.430.2.7 0.2.7.3.698 Ho spita .3.007994 084.8 l .8 2022-03-07 2022-03-07 Pre-Admiss Rouse, 1.2.840.1 [id number] 621 [id number] Methodi 15:00:00 16:00:00 ion Vincent 93794.1.[address] Testing Dank 3.430.2.7 Hospit a .3.780143 l .8 2022-03-07 2022-03-07 Office Rouse, 1.2.840.1 [id number] 6495 Methodi 13:00:00 13:57:43 Visit Vincent 41336.1.[address] Dank 3.430.2.7 Hospit a .3.485212 l .8 2022-03-07 2022-03-07 Outpatient ROUSE, [facility] [id number] 117 [place] 00:00:00 00:00:00 VINCENT [address] 2022-03-07 2022-03-07 Outpatient ROUSE, [facility] [id number] 312 [place] 00:00:00 00:00:00 VINCENT [address] 2022-03-07 2022-03-07 Outpatient ROUSE, [facility] [id number] 324 [place] 00:00:00 00:00:00 VINCENT [address] 2022-03-07 2022-03-07 Transcribe Rouse, 1.2.840.1 [id number] Methodi 00:00:00 00:00:00 Orders Vincent 99630.1.[address] Dank 3.430.2.7 Hospit a .3.915824 l .8 2022-03-07 2022-03-07 Travel 1.2.840.1 1.2.944.140 2764 806770 Methodi 00:00:00 00:00:[address] 3.430.2.7 0.2.7.3.698 Ho spita .3.481498 084.8 l .8 2022-03-06 2022-03-06 (TEL) STLMLC STLMLC [id number] Co mmon 00:00:00 00:00:00 [facility] 2022-03-02 2022-03-02 (TEL) STLMLC STLMLC [id number] Co mmon 00:00:00 00:00:00 [facility] 2022-03-01 2022-03-[address] [facility] 1.2.459.149 2557 5904 Univers 17:47:00 19:37:00 Garrett JONNATHANSULEMAN 350.1.13.10 i ty of Supa CRUM 4.2.7.2.686 [facility] 309.3550258 [address] 2022-03-01 2022-03-01 [facility] [id number] 53 Univers 17:47:00 19:37:00 GARRETT enrique [facility] 2022-02-10 2022-02-10 OFFICE STLMLC STLMLC [id number] Co mmon 00:00:00 00:00:00 VISIT EST Spir it PT LEVEL 3 - [facility] 2022-02-09 2022-02-09 (TEL) STLMLC STLMLC [id number] Co mmon 00:00:00 00:00:00 Spirit - [facility] 2022-02-06 2022-02-06 Office Rouse, 1.2.840.1 [id number] 4700 Methodi 14:50:00 16:55:25 Visit Osmar 44277.1.[address] Dank 3.430.2.7 Hospit a .3.615580 l .8 2022-02-06 2022-02-06 Office Rouse, 1.2.840.1 [id number] 1910 Methodi 14:50:00 16:55:25 Visit Osmar 13185.1.[address] Dank 3.430.2.7 Hospit a .3.531824 l .8 2022-02-06 2022-02-06 Travel 1.2.840.1 1.2.653.614 7218 712977 Methodi 00:00:00 00:00:[address] 3.430.2.7 0.2.7.3.698 Ho spita .3.883401 084.8 l .8 2022-02-06 2022-02-06 Travel 1.2.840.1 1.2.725.956 2058 535233 Methodi 00:00:00 00:00:[address] 3.430.2.7 0.2.7.3.698 Ho spita .3.296509 084.8 l .8 2022-02-03 2022-02-03 PATRICIA Tafoya 2.16.840. 2.16.840.1. CLAC [id number] [facility] 20:00:00 21:00:00 Casper 1.335774. 195275.4.6. 9[facility] 4.6.22590 [id number] 93794 2022-01-26 2022-01-26 Outpatient Czerwinski_ DMG DMG 537 [facility] 00:00:00 00:00:00 K 0929 Medica l Group 2022-01-25 2022-01-25 OFFICE STLMLC STLMLC [id number] Co mmon 00:00:00 00:00:00 VISIT Spirit [facility] PT - CHI LEVEL [address] [facility] 2022-01-20 2022-01-20 Travel 1.2.840.1 1.2.857.226 5130 501663 Methodi 00:00:00 00:00:[address] 3.430.2.7 0.2.7.3.698 Ho spita .3.588139 084.8 l .8 2022-01-20 2022-01-20 Travel 1.2.840.1 1.2.972.670 0349 553426 Methodi 00:00:00 00:00:[address] 3.430.2.7 0.2.7.3.698 Ho spita .3.847752 084.8 l .8 2022-01-12 2022-01-12 (TEL) STLMLC STLMLC [id number] Co mmon 00:00:00 00:00:00 Spirit - [facility] 2022-01-11 2022-01-11 OFFICE STLMLC STLMLC [id number] Co mmon 00:00:00 00:00:00 VISIT Spirit ESTAB PT - CHI LEVEL [address] [facility] 2022-01-09 2022-01-09 Outpatient FOG_Mehlhof AOSM AOSM 641 [id number] [place] 00:00:00 00:00:00 Jenny [id number] [facility] 2021-12-27 2021-12-27 OFFICE STLMLC STLC [id number] Co mmon 00:00:00 00:00:[address] 2021-12-12 2021-12-12 ([place]) [facility] [id number] Common 00:00:00 00:00:00 Visit [facility] 2021-11-28 2021-11-28 (TEL) STLMLC STLC [id number] Co mmon 00:00:00 00:00:00 [facility] 2021-11-28 2021-11-28 ([place]) Nurse [facility] [id number] Common 00:00:00 00:00:00 Visit [facility] 2021-11-11 2021-11-11 Outpatient CURRY_S DMG DMG [id number] [facility] 03:26:00 03:26:00 0715 Medica l Group 2021-10-19 2021-10-19 Outpatient Baum_L [facility] [id number] [place] 09:02:00 09:02:00 [address]23 [facility] 2021-10-17 2021-10-17 Outpatient Baum_L U [facility] [id number] [place] 02:53:00 02:53:00 73102 [facility] 2021-10-17 2021-10-17 Outpatient Gamalodr, Zoe [facility] [id number] 00:00:00 00:00:00 Margarita Sosa [id number] 8654-06-20 2021-10-[address] [facility] [place] [id number] [place] 00:00:00 00:00:00 Leon TOP CUTTER: [facility] [address] [facility] [address], [place] [address] , Ph. 2021-10-11 2021-10-12 Outpatient E [facility] 21:36:00 14:20:00 VINCENTIA 2021-10-06 2021-10-06 SUB ANNUAL STLMLC STLMLC [id number] Common 00:00:00 00:00:00 MCR Spirit WELLNESS - CHI VISIT [facility] 2021-10-06 2021-10-06 OFFICE STLC STLMLC [id number] Co mmon 00:00:00 00:00:00 VISIT Spirit ESTAB PT - CHI LEVEL [address] [facility] 2021-10-04 2021-10-04 Outpatient Baum_L [facility] [id number] [place] 10:53:00 10:53:00 [facility] 2021-10-03 2021-10-03 Outpatient Baum_L [facility] [id number]- [place] 05:53:00 05:53:00 [facility] 2021-10-03 2021-10-03 Outpatient Alexandro, [facility] [id number] 00:00:00 00:00:00 Sumanth [id number] 2021-10-03 2021-10-[address] [facility] [place] [id number] [place] 00:00:00 00:00:00 MD Alexandro: [place] [id number] [facility] [address], [place] [address] , Ph. 2021-09-30 2021-09-30 Outpatient Baum_L [facility] [id number]- [place] 05:15:00 05:15:00 [facility] 2021-09-28 2021-09-28 Outpatient Baum_L [facility] [id number] [place] 12:20:00 12:20:00 [id number] [facility] 2021-09-28 2021-09-28 (EST. STLMLC STLMLC [id number] Co mmon 00:00:00 00:00:00 VIDEO) EST Spi rit VIRTUAL - CHI VIDEO [facility] 2021-09-27 2021-09-27 Outpatient Baum_L [place] [id number] [place] 10:19:00 10:19:00 [id number] [facility] 2021-09-26 2021-09-26 (TEL) STLC STLC [id number] Co mmon 00:00:00 00:00:00 [facility] 2021-09-21 2021-09-24 [facility] Kj DiehlBenito [facility] [id number] [facility] 21:05:00 13:08:00 Encounter Maribell Suresh elier [facility] 2021-09-21 2021-09-24 [facility] [id number] [facility] 21:05:00 13:08:00 MARIBELL 2021-09-22 2021-09-22 Anesthesia Jacob Roberson [facility] [id number] [facility] 18:21:00 19:13:00 Event [facility] 2021-09-22 2021-09-22 Surgery Alexandro, [facility] [id number] [facility] 17:45:00 18:29:00 [facility] 2021-09-22 2021-09-22 (TEL) STLC STLC [id number] Co mmon 00:00:00 00:00:00 [facility] 2021-09-21 2021-09-21 Travel [facility] [id number] [facility] 00:00:00 [facility] 2021-09-20 2021-09-20 (TEL) STLC STLC [id number] Co mmon 00:00:00 00:00:00 [facility] 2021-09-15 2021-09-15 OFFICE STLMLC STLC [id number] Co mmon 00:00:00 00:00:00 VISIT Spirit ESTAB PT - CHI LEVEL [address] [facility] 2021-08-31 2021-08-31 OFFICE STLMLC STLMLC [id number] Co mmon 00:00:00 00:00:00 VISIT Spirit ESTAB PT - CHI LEVEL [address] [facility] 2021-08-18 2021-08-18 OFFICE STLMLC STLMLC [id number] Co mmon 00:00:00 00:00:00 VISIT Spirit ESTAB PT - CHI LEVEL [address] [facility] 2021-08-04 2021-08-04 ([place]) Nurse STLMLC STLMLC [id number] Common 00:00:00 00:00:00 Visit Spirit - CHI [facility] 2021-08-02 2021-08-02 OFFICE STLMLC STLMLC [id number] Co mmon 00:00:00 00:00:00 VISIT Spirit ESTAB PT - CHI LEVEL [address] [facility] 2021-08-01 2021-08-01 (TEL) STLMLC STLMLC [id number] Co mmon 00:00:00 00:00:00 [facility] 2021-07-25 2021-07-25 (TEL) STLMLC STLMLC [id number] Co mmon 00:00:00 00:00:00 [facility] 2021-07-21 2021-07-21 OFFICE STLMLC STLMLC [id number] Co mmon 00:00:00 00:00:00 VISIT EST Spir it PT LEVEL 3 - [facility] 2021-07-18 2021-07-18 (TEL) STLMLC STLMLC [id number] Co mmon 00:00:00 00:00:00 [facility] 2021-07-13 2021-07-13 OFFICE STLMLC STLMLC [id number] Co mmon 00:00:00 00:00:00 VISIT Spirit ESTAB PT - CHI LEVEL 2 [facility] 2021-07-13 2021-07-13 (TEL) STLMLC STLMLC [id number] Co mmon 00:00:00 00:00:00 [facility] 2021-07-12 2021-07-12 OFFICE STLMLC STLMLC [id number] Co mmon 00:00:00 00:00:00 VISIT Spirit ESTAB PT - CHI LEVEL [address] [facility] 2021-07-11 2021-07-11 (TEL) STLMLC STLMLC [id number] Co mmon 00:00:00 00:00:00 [facility] 2021-07-07 2021-07-07 ([place]) Nurse STLMLC STLMLC [id number] Common 00:00:00 00:00:00 Visit [facility] 2021-06-23 2021-06-23 (INJ) STLMLC STLMLC [id number] Co mmon 00:00:00 00:00:00 Injection Spir it [facility] 2021-05-26 2021-05-26 (TEL) STLMLC STLMLC [id number] Co mmon 00:00:00 00:00:00 [facility] 2021-05-20 2021-05-20 ([place]) Nurse STLMLC STLMLC [id number] Common 00:00:00 00:00:00 Visit [facility] 2021-05-20 2021-05-20 (TEL) STLMLC STLMLC [id number] Co mmon 00:00:00 00:00:00 [facility] 2021-05-13 2021-05-13 OFFICE STLMLC STLMLC [id number] Co mmon 00:00:00 00:00:00 VISIT EST Spir it PT LEVEL 3 [facility] 2021-05-12 2021-05-12 (TEL) STLMLC STLMLC [id number] Co mmon 00:00:00 00:00:00 [facility] 2021-05-06 2021-05-06 (TEL) STLMLC STLMLC [id number] Co mmon 00:00:00 00:00:00 [facility] 2021-05-06 2021-05-06 ([place]) Nurse STLMLC STLMLC [id number] Common 00:00:00 00:00:00 Visit [facility] 2021-04-15 2021-04-15 ([place]) Nurse STLMLC STLMLC [id number] Common 00:00:00 00:00:00 Visit [facility] 2021-04-05 2021-04-05 (TEL) STLMLC STLMLC [id number] Co mmon 00:00:00 00:00:00 [facility] 2021-04-01 2021-04-01 ([place]) Nurse STLMLC STLMLC [id number] Common 00:00:00 00:00:00 Visit [facility] 2021-03-21 2021-03-21 (TEL) STLMLC STLMLC [id number] Co mmon 00:00:00 00:00:00 [facility] 2021-03-21 2021-03-21 OFFICE STLMLC STLMLC [id number] Co mmon 00:00:00 00:00:00 VISIT EST Spir it PT LEVEL 3 [facility] 2021-03-18 2021-03-18 (INJ) STLMLC STLMLC [id number] Co mmon 00:00:00 00:00:00 Injection Spir [facility] 2021-02-16 2021-02-16 (INJ) STLMLC STLMLC [id number] Co mmon 00:00:00 00:00:00 Injection Spir [facility] 2021-02-02 2021-02-02 (TEL) STLMLC STLMLC [id number] Co mmon 00:00:00 00:00:00 [facility] 2021-01-20 2021-01-20 (TEL) STLMLC STLMLC [id number] Co mmon 00:00:00 00:00:00 [facility] 2021-01-12 2021-01-12 Outpatient STLMLC STLMLC [id number] Common 00:00:00 00:00:00 [facility] 2021-01-12 2021-01-12 Outpatient STLMLC STLMLC [id number] Common 00:00:00 00:00:00 [facility] 2020-12-29 2020-12-29 Outpatient STLMLC STLMLC [id number] Common 00:00:00 00:00:00 [facility] 2020-12-29 2020-12-29 Outpatient STLMLC STLMLC [id number] Common 00:00:00 00:00:00 [facility] 2020-12-22 2020-12-22 Outpatient STLMLC STLMLC [id number] Common 00:00:00 00:00:00 [facility] 2020-12-17 2020-12-17 Outpatient STLMLC STLMLC [id number] Common 00:00:00 00:00:00 [facility] 2020-12-08 2020-12-08 Outpatient CURRY_S DMG SASKIA [id number] [facility] 01:39:00 01:39:00 [facility] 2020-12-08 2020-12-08 Outpatient STLMLC STLMLC [id number] Common 00:00:00 00:00:00 [facility] 2020-11-18 2020-11-18 Outpatient STLMLC STLMLC [id number] Common 00:00:00 00:00:00 [facility] 2020-11-11 2020-11-11 Outpatient STLMLC STLMLC [id number] Common 00:00:00 00:00:00 [facility] 2020-11-10 2020-11-10 Outpatient STLMLC STLMLC [id number] Common 00:00:00 00:00:00 [facility] 2020-11-04 2020-11-04 Outpatient STLMLC STLMLC [id number] Common 00:00:00 00:00:00 [facility] 2020-10-29 2020-10-29 Outpatient Kautz_S DMG SASKIAG [id number] [facility] 02:30:00 02:30:00 0702 [facility] 2020-10-15 2020-10-15 Outpatient STLMLC STLMLC [id number] Common 00:00:00 00:00:00 [facility] 2020-09-24 2020-09-24 Outpatient DMG SASKIAG [id number] [facility] 08:00:00 08:00:00 0528 [facility] 2020-09-16 2020-09-16 Outpatient STLMLC STLMLC [id number] Common 00:00:00 00:00:00 [facility] 2020-09-07 2020-09-07 Outpatient STLMLC STLMLC [id number] Common 00:00:00 00:00:00 [facility] 2020-09-02 2020-09-02 Outpatient STLMLC STLMLC [id number] Common 00:00:00 00:00:00 [facility] 2020-08-24 2020-08-24 Outpatient STLMLC STLMLC [id number] Common 00:00:00 00:00:00 [facility] 2020-08-05 2020-08-05 Outpatient STLMLC STLMLC [id number] Common 00:00:00 00:00:00 [facility] 2020-07-22 2020-07-22 Outpatient STLMLC STLMLC [id number] Common 00:00:00 00:00:00 [facility] 2020-06-09 2020-06-09 Outpatient STLMLC STLMLC [id number] Common 00:00:00 00:00:00 [facility] 2020-06-02 2020-06-02 Outpatient STLMLC STLMLC [id number] Common 00:00:00 00:00:00 [facility] 2020-05-13 2020-05-13 Outpatient STLMLC STLMLC [id number] Common 00:00:00 00:00:00 [facility] 2020-04-28 2020-04-28 Outpatient STLMLC STLMLC [id number] Common 00:00:00 00:00:00 [facility] 2020-04-13 2020-04-13 Outpatient STLMLC STLMLC [id number] Common 00:00:00 00:00:00 [facility] 2020-03-30 2020-03-30 Outpatient STLMLC STLMLC [id number] Common 00:00:00 00:00:00 [facility] 2020-03-22 2020-03-22 Outpatient STLMLC STLMLC [id number] Common 00:00:00 00:00:00 [facility] 2020-03-16 2020-03-16 Outpatient STLMLC STLMLC [id number] Common 00:00:00 00:00:00 [facility] 2020-03-02 2020-03-02 Outpatient STLMLC STLMLC [id number] Common 00:00:00 00:00:00 [facility] 2020-02-20 2020-02-20 Outpatient STLMLC STLMLC [id number] Common 00:00:00 00:00:00 [facility] 2020-01-26 2020-01-26 Outpatient STLMLC STLMLC [id number] Common 00:00:00 00:00:00 [facility] 2020-01-15 2020-01-15 [id number] Common 14:00:00 14:00:[address] [facility] 2019-12-29 2019-12-29 [facility] [id number] Common 15:30:00 15:30:[address] [address] [address] [facility] 2019-12-15 2019-12-15 [facility] [id number] Common 15:30:00 15:30:00 [address] [address] [address] [facility] 2019-12-09 2019-12-09 [facility] [id number] Common 09:51:00 09:51:00 [address] [address] [facility] 2019-12-01 2019-12-01 [facility] [id number] Common 16:45:00 16:45:[address] [facility] 2019-11-17 2019-11-17 [facility] [id number] Common 10:15:00 10:15:[address] [facility] 2019-10-30 2019-10-30 [facility] [id number] Common 16:00:00 16:00:00 [address] [facility] 2019-10-30 2019-10-30 [facility] [id number] Common 15:30:00 15:30:[address] [facility] 2019-10-16 2019-10-16 [facility] [id number] Common 13:30:00 13:30:[address] [address] [facility] 2019-08-20 2019-08-20 [facility] [id number] Common 15:08:00 15:08:00 [address] [facility] 2019 2019 [facility] [id number] Common 10:45:00 10:45:[address] [facility] 2019-07-08 2019-07-08 [facility] [id number] Common 13:30:00 13:30:[address] [facility] 2019-07-02 2019-07-02 [facility] [id number] Common 11:14:00 11:14:00 [address] [facility] 2019-06-18 2019-06-18 [facility] [id number] Common 06:25:00 06:25:[address] [facility] 2019-06-17 2019-06-17 [facility] [id number] Common 14:15:00 14:15:[address] [facility] 2019-05-15 2019-05-15 [facility] [id number] Common 08:25:00 08:25:00 t [facility] 2019-05-13 2019-05-13 [facility] [id number] Common 14:39:00 14:39:00 t Bone Bone and Spiri t and Joint [facility] 2019-05-12 2019-05-12 [facility] [id number] Common 14:11:00 14:11:00 t Bone Bone and Spiri t and Joint [facility] 2019-05-07 2019-05-07 [facility] [id number] Common 13:00:00 13:00:[address] [facility] 2019-05-05 2019-05-05 [facility] [id number] Common 10:15:00 10:15:[address] [facility] 2019-05-01 2019-05-01 [facility] [id number] Common 08:30:00 08:30:[address] [facility] 2019-04-15 2019-04-15 [facility] [id number] Common 15:30:00 15:30:00 t Bone Bone and Spiri t and Joint [facility] 2019-04-11 2019-04-11 [facility] [id number] Common 11:41:00 11:41:00 t Bone Bone and Spiri t and Joint [facility] 2019-04-02 2019-04-02 [facility] [id number] Common 11:00:00 11:00:00 t Bone Bone and Spiri t and Joint [facility] 2019-03-05 2019-03-05 [facility] [id number] Common 13:00:00 13:00:[address] [facility] 2019-03-05 2019-03-05 [facility] [id number] Common 11:24:00 11:24:[address] [facility] 2019-02-21 2019-02-21 [facility] [id number] Common 09:01:00 09:01:00 t Bone Bone and Spiri t and Joint [facility] 2019-02-12 2019-02-12 [facility] [id number] Common 16:21:00 16:21:00 t Bone Bone and Spiri t and Joint [facility] 2019-02-11 2019-02-11 [facility] [id number] Common 14:30:00 14:30:00 t Bone Bone and Spiri t and Joint [facility] 2019-01-30 2019-01-30 [facility] [id number] Common 13:10:00 13:10:00 t Bone Bone and Spiri t and Joint [facility] 2019-01-29 2019-01-29 [facility] [id number] Common 09:15:00 09:15:[address] [facility] 2018-12-23 2018-12-23 [facility] [id number] Common 14:30:00 14:30:00 t Bone Bone and Spiri t and Joint [facility] 2018-12-17 2018-12-17 [facility] [id number] Common 13:15:00 13:15:[address] [facility] 2018-10-03 2018-10-03 [facility] [id number] Common 13:30:00 13:30:00 t Bone Bone and Spiri t and Joint [facility] 2018-09-12 2018-09-12 [facility] [id number] Common 12:09:00 12:09:00 t Bone Bone and Spiri t and Joint [facility] 2018-09-11 2018-09-11 [facility] [id number] Common 10:28:00 10:28:00 t Bone Bone and Spiri t and Joint [facility] 2018-09-05 2018-09-05 [facility] [id number] Common 14:45:00 14:45:[address] [place] [address] [address] [address] [facility] 2018-08-26 2018-08-26 [facility] [id number] Common 13:00:00 13:00:00 [address] [place] [address] [facility] 2018-07-29 2018-07-29 [facility] [id number] Common 16:45:00 16:45:00 [address] [place] [address] [facility] 2018-07-29 2018-07-29 [facility] [id number] Common 15:46:00 15:46:00 [address] [place] [address] [facility] 2018-07-10 2018-07-10 [facility] [id number] Common 15:43:00 15:43:00 [address] [place] [address] [facility] 2018-06-25 2018-06-25 [facility] [id number] Common 10:30:00 10:30:00 [address] [place] [address] [facility] 2018-05-30 2018-05-30 [facility] [id number] Common 16:16:00 16:16:00 [address] [place] [address] [facility] 2018-05-27 2018-05-27 [facility] [id number] Common 13:00:00 13:00:00 [address] [place] [address] [place] [address] [facility] 2018-05-20 2018-05-20 [facility] [id number] Common 12:05:00 12:05:[address] [facility] 2017-11-20 2017-11-20 [facility] [id number] Common 10:36:00 10:36:00 [address] [address] [facility] 2017-10-02 2017-10-02 Out[facility] [id number] Common 13:15:00 13:15:00 [address] [place] [address] [facility] 2017-09-13 2017-09-13 [facility] [id number] Common 10:07:00 10:07:00 [address] [place] [address] [facility] 2017-09-12 2017-09-12 [facility] [id number] Common 10:16:00 10:16:00 [address] [place] [address] [facility] 2017-09-11 2017-09-11 [facility] [id number] Common 13:15:00 13:15:00 [address] [place] [address] [facility] 2017-08-24 2017-08-24 [facility] [id number] Common 08:15:00 08:15:00 [address] [place] [address] [facility] 2017-08-22 2017-08-22 [facility] [id number] Common 13:00:00 13:00:00 [address] [place] [address] [facility] Results Test Description Test Time Test Comments Results Result Comments Source POC glucose 2022-03-09 16:56:00 Test Item Value Reference Range Interpretation Comme nts POC glucose (test code = 118 mg/dL 65-99 H Ope rator Name: Valeriano Slater [id number]) ID: [id number] hartable: RN Notified Lab Interpretation (test code = Abnormal 51495-4) [id number] 20:54:04 Test Item Value Reference Range Interpretation Comments Ventricular rate (test 66 code = 253) Atrial rate (test code = 66 255) CO interval (test code = 152 266) QRSD interval (test code 80 = 260) QT interval (test code = 422 264) QTC interval (test code 442 = 265) P axis 1 (test code = 24 267) QRS axis 1 (test code = 37 268) T wave axis (test code = 57 270) EKG impression (test Normal sinus code = 273) rhythm-Normal ECG-No previous ECGs available-Electronica lly Signed By Carol Sams MD ([id number]) on 03/08/2022 2:53:06 PM [facility] [Presence] in Respiratory specimen by CONNER with probe [id number] 22:05:44 Test Item Value Reference Range Interpretation Comments SARS-CoV-2 (COVID-19) RNA Not detected [Presence] in Respiratory specimen by CONNER with probe detection (test code = 46441-8) Whether patient is employed in a Unknown healthcare setting (test code = 89904-4) Whether the patient has symptoms Unknown related to condition of interest (test code = 50526-8) Whether the patient was Unknown hospitalized for condition of interest (test code = 58776-6) Whether the patient was admitted Unknown to intensive care unit (ICU) for condition of interest (test code = 29063-6) Whether patient resides in a Unknown congregate care setting (test code = 78219-3) status (test code = Unknown 07648-5) Date and time of symptom onset Unknown (test code = 61262-2) [facility] Urine by Culture 2021-10-07 00:00:00 Test Item Value Reference Range Interpretation Comments Bacteria identified in Urine by see below no growth A Culture (test code = 630-4) [facility] UrologyUrinalysis macro (dipstick) panel - [id number] 10:55:00 Test Item Value Reference Range Interpretation Comments leukocytes (test code moderate neg A = leukocytes) urobilinogen (test 1.0 E.U./dL sm amt (.5-1mg/dL) code = urobilinogen) protein (test code = 100 mg/dL See_Comment A [Autom ated protein) message] The sy stem which generated this result transmitted reference range : <=150 mg/d. The reference range was not used to interpret this result as normal/abnormal . pH (test code = pH) 6.0 4.5-8 blood (test code = large See_Comment A [Automat ed blood) message] The sy stem which generated this result transmitted reference range : <=3 RBC. The reference range was not used to interpret this result as normal/abnormal . specific gravity 1.025 1.005-1.025 (test code = specific gravity) ketone (test code = negative none ketone) bilirubin (test code small neg A = bilirubin) glucose (test code = negative See_Comment [Autom ated glucose) message] The sy stem which generated this result transmitted reference range : <=130 mg/d. The reference range was not used to interpret this result as normal/abnormal . color (test code = yellow yellow color) clarity (test code = clear clear or cloudy clarity) nitrite (test code = negative neg nitrite) [facility] UrologyUrinalysis macro (dipstick) panel - [id number] 10:55:00 Test Item Value Reference Range Interpretation Comments leukocytes (test code moderate neg A = leukocytes) urobilinogen (test 1.0 E.U./dL sm amt (.5-1mg/dL) code = urobilinogen) protein (test code = 100 mg/dL See_Comment A [Autom ated protein) message] The sy stem which generated this result transmitted reference range : <=150 mg/d. The reference range was not used to interpret this result as normal/abnormal . pH (test code = pH) 6.0 4.5-8 blood (test code = large See_Comment A [Automat ed blood) message] The sy stem which generated this result transmitted reference range : <=3 RBC. The reference range was not used to interpret this result as normal/abnormal . specific gravity 1.025 1.005-1.025 (test code = specific gravity) ketone (test code = negative none ketone) bilirubin (test code small neg A = bilirubin) glucose (test code = negative See_Comment [Autom ated glucose) message] The sy stem which generated this result transmitted reference range : <=130 mg/d. The reference range was not used to interpret this result as normal/abnormal . color (test code = yellow yellow color) clarity (test code = clear clear or cloudy clarity) nitrite (test code = negative neg nitrite) [facility] UrologyBLOOD [id number] 04:00:29 Test Item Value Reference Range Interpretation Comments CULTURE (BEAKER) (test No growth in 5 days code = 1095) BLOOD [id number] 04:00:28 Test Item Value Reference Range Interpretation Comments CULTURE (BEAKER) (test No growth in 5 days code = 1095) Urine [id number] 08:32:56 Test Item Value Reference Range Interpretation Comments Result (test code = 6463-4) [facility] growth [id number] 07:13:57 Test Item Value Reference Range Interpretation Comments MAGNESIUM (BEAKER) 2.1 mg/dL 1.5-3.0 Specimen slightly (test code = 627) hemolyzed Regional Operations Manager ID - LITOOperator ID - LITOOperator ID - LITOOperator ID - LITOBASIC METABOLIC [id number] 07:12:39 Test Item Value Reference Range Interpretation Comments SODIUM (BEAKER) 138 meq/L 135-148 (test code = 381) POTASSIUM (BEAKER) 4.3 meq/L 3.6-5.5 Specimen slightly (test code = 379) hemolyzed CHLORIDE (BEAKER) 110 meq/L 98-106 H (test code = 382) CO2 (BEAKER) (test 21 meq/L 20-29 code = 355) BLOOD UREA NITROGEN 13 mg/dL 10-26 (BEAKER) (test code = 354) CREATININE (BEAKER) 0.79 mg/dL 0.50-1.20 Specimen slightly (test code = 358) hemolyzed GLUCOSE RANDOM 83 mg/dL 70-110 (BEAKER) (test code = 652) CALCIUM (BEAKER) 8.3 mg/dL 8.5-10.5 L (test code = 697) EGFR (BEAKER) (test 71 mL/min/1.73 ESTIMA RONI GFR IS code = 1092) sq m NOT ACCURATE CREATININE CLEARANCE IN PREDICTING GLOMERULAR FILTRATION RATE . ESTIMATED GFR I S NOT APPLICABLE FOR DIALYSIS PATIEN TS. Regional Operations Manager ID - LITOOperator ID - LITOOperator ID - LITOOperator ID - LITOOperator ID - LITOOperator ID - LITOOperator ID - LITOOperator ID - LITOOperator ID - [id number] 07:11:21 Test Item Value Reference Range Interpretation Comments PHOSPHORUS (BEAKER) 2.4 mg/dL 2.5-4.5 L Specimen slightly (test code = 604) hemolyzed Regional Operations Manager ID - LITOCBC W/PLT COUNT & AUTO [id number] 06:52:06 Test Item Value Reference Range Interpretation Comments WHITE BLOOD CELL COUNT (BEAKER) 8.0 K/ L 4.0-10.0 (test code = 775) RED BLOOD CELL COUNT (BEAKER) 3.49 M/ L 4.00-5.00 L (test code = 761) HEMOGLOBIN (BEAKER) (test code = 10.8 GM/DL 12.0-15.5 L 410) HEMATOCRIT (BEAKER) (test code = 33.9 % 36.0-46.0 L 411) MEAN CORPUSCULAR VOLUME (BEAKER) 97.1 fL 82.0-99.0 (test code = 753) MEAN CORPUSCULAR HEMOGLOBIN 30.9 pg 27.0-33.0 (BEAKER) (test code = 751) MEAN CORPUSCULAR HEMOGLOBIN CONC 31.9 GM/DL 32.0-36.0 L (BEAKER) (test code = 752) RED CELL DISTRIBUTION WIDTH 13.3 % 12.0-15.0 (BEAKER) (test code = 412) PLATELET COUNT (BEAKER) (test 198 K/CU MM 150-430 code = 756) MEAN PLATELET VOLUME (BEAKER) 9.9 fL 6.0-11.5 (test code = 754) NUCLEATED RED BLOOD CELLS 0 /100 WBC 0-0 (BEAKER) (test code = 413) NEUTROPHILS RELATIVE PERCENT 66 % (BEAKER) (test code = 429) LYMPHOCYTES RELATIVE PERCENT 21 % (BEAKER) (test code = 430) MONOCYTES RELATIVE PERCENT 10 % (BEAKER) (test code = 431) EOSINOPHILS RELATIVE PERCENT 2 % (BEAKER) (test code = 432) BASOPHILS RELATIVE PERCENT 1 % (BEAKER) (test code = 437) NEUTROPHILS ABSOLUTE COUNT 5.28 K/ L 1.80-8.00 (BEAKER) (test code = 670) LYMPHOCYTES ABSOLUTE COUNT 1.72 K/ L 1.48-4.50 (BEAKER) (test code = 414) MONOCYTES ABSOLUTE COUNT (BEAKER) 0.76 K/ L 0.00-1.30 (test code = 415) EOSINOPHILS ABSOLUTE COUNT 0.17 K/ L 0.00-0.50 (BEAKER) (test code = 416) BASOPHILS ABSOLUTE COUNT (BEAKER) 0.05 K/ L 0.00-0.20 (test code = 417) IMMATURE GRANULOCYTES-RELATIVE 1 % 0-0 H PERCENT (BEAKER) (test code = 2801) [id number] 06:14:42 Test Item Value Reference Range Interpretation Comments MAGNESIUM (BEAKER) (test code = 2.2 mg/dL 1.5-3.0 627) Regional Operations Manager ID - [id number] ID - [id number] ID - [id number] ID - [id number] BASIC METABOLIC [id number] 06:13:34 Test Item Value Reference Range Interpretation Comments SODIUM (BEAKER) 137 meq/L 135-148 (test code = 381) POTASSIUM (BEAKER) 3.8 meq/L 3.6-5.5 (test code = 379) CHLORIDE (BEAKER) 111 meq/L 98-106 H (test code = 382) CO2 (BEAKER) (test 19 meq/L 20-29 L code = 355) BLOOD UREA NITROGEN 18 mg/dL 10-26 (BEAKER) (test code = 354) CREATININE (BEAKER) 0.74 mg/dL 0.50-1.20 (test code = 358) GLUCOSE RANDOM 113 mg/dL 70-110 H (BEAKER) (test code = 652) CALCIUM (BEAKER) 8.0 mg/dL 8.5-10.5 L (test code = 697) EGFR (BEAKER) (test 77 mL/min/1.73 ESTIMA RONI GFR IS code = 1092) sq m NOT ACCURATE CREATININE CLEARANCE IN PREDICTING GLOMERULAR FILTRATION RATE . ESTIMATED GFR I S NOT APPLICABLE FOR DIALYSIS PATIEN TS. Regional Operations Manager ID - [id number] ID - [id number] ID - [id number] ID - [id number] ID - [id number] ID - [id number] ID - [id number] ID - [id number] ID - [id number] ID - [id number] W/PLT COUNT & AUTO [id number] 06:12:05 Test Item Value Reference Range Interpretation Comments WHITE BLOOD CELL COUNT (BEAKER) 10.4 K/ L 4.0-10.0 H (test code = 775) RED BLOOD CELL COUNT (BEAKER) 3.25 M/ L 4.00-5.00 L (test code = 761) HEMOGLOBIN (BEAKER) (test code = 10.1 GM/DL 12.0-15.5 L 410) HEMATOCRIT (BEAKER) (test code = 30.7 % 36.0-46.0 L 411) MEAN CORPUSCULAR VOLUME (BEAKER) 94.5 fL 82.0-99.0 (test code = 753) MEAN CORPUSCULAR HEMOGLOBIN 31.1 pg 27.0-33.0 (BEAKER) (test code = 751) MEAN CORPUSCULAR HEMOGLOBIN CONC 32.9 GM/DL 32.0-36.0 (BEAKER) (test code = 752) RED CELL DISTRIBUTION WIDTH 13.2 % 12.0-15.0 (BEAKER) (test code = 412) PLATELET COUNT (BEAKER) (test 152 K/CU MM 150-430 code = 756) MEAN PLATELET VOLUME (BEAKER) 9.7 fL 6.0-11.5 (test code = 754) NUCLEATED RED BLOOD CELLS 0 /100 WBC 0-0 (BEAKER) (test code = 413) NEUTROPHILS RELATIVE PERCENT 76 % (BEAKER) (test code = 429) LYMPHOCYTES RELATIVE PERCENT 13 % (BEAKER) (test code = 430) MONOCYTES RELATIVE PERCENT 9 % (BEAKER) (test code = 431) EOSINOPHILS RELATIVE PERCENT 1 % (BEAKER) (test code = 432) BASOPHILS RELATIVE PERCENT 0 % (BEAKER) (test code = 437) NEUTROPHILS ABSOLUTE COUNT 7.90 K/ L 1.80-8.00 (BEAKER) (test code = 670) LYMPHOCYTES ABSOLUTE COUNT 1.36 K/ L 1.48-4.50 L (BEAKER) (test code = 414) MONOCYTES ABSOLUTE COUNT (BEAKER) 0.91 K/ L 0.00-1.30 (test code = 415) EOSINOPHILS ABSOLUTE COUNT 0.09 K/ L 0.00-0.50 (BEAKER) (test code = 416) BASOPHILS ABSOLUTE COUNT (BEAKER) 0.03 K/ L 0.00-0.20 (test code = 417) IMMATURE GRANULOCYTES-RELATIVE 1 % 0-0 H PERCENT (BEAKER) (test code = 2800) [id number] 06:12:02 Test Item Value Reference Range Interpretation Comments PHOSPHORUS (BEAKER) (test code = 2.1 mg/dL 2.5-4.5 L 604) Regional Operations Manager ID - [id number], FLUORO, NON-SPECIFIC, UP TO 1 [id number] 19:00:00 Reason for exam:->cysto w/ stent placement [facility] CENTERName: ORALIA PIERCE : 1945 Sex: FAn imaging unit was utilized for this procedure. No radiologist interpretation was requested. Refer to the EMR for findings. Refer to PACS for any patient radiation dose information.Urinalysis w/Microscopic + Reflex to [id number] 05:25:57 Test Item Value Reference Range Interpretation Comments Color, UA (test code = Yellow 5778-6) Clarity, UA (test code = Clear 5767-9) Specific [place], UA >=1.030 1.001-1.035 (test code = 5811-5) pH, UA (test code = 5.5 5.0-8.0 5803-2) Protein, UA (test code = 30 mg/dL Negative A 77910-0) Glucose, UA (test code = Negative Negative 365) Ketones, UA (test code = Negative Negative 2514-8) Bilirubin, UA (test code Negative Negative = 51831-3) Blood, UA (test code = Moderate Negative A 68993-9) Nitrite, UA (test code = Negative Negative 5802-4) Leukocytes, UA (test Trace Negative A code = 5799-2) Urobilinogen, UA (test 1.0 mg/dL 0.2-1.0 code = 07071-9) Bacteria, UA (test code Many = 32543-8) RBC, UA (test code = >100 See_Comment [Autom ated message] 799-7) The system [employer] generated this result transmit roni reference range : /HPF. The refer ence range was not u sed to interpret th is result as normal/abnormal . WBC, UA (test code = >100 See_Comment [Autom ated message] 80390-6) The system whic h generated this result transmit roni reference range : /HPF. The refer ence range was not u sed to interpret th is result as normal/abnormal . SQUAMOUS EPITHELIAL 50-100 See_Comment [Automa roni message] (test code = 62902-3) The sy stem which generated this result transmit roni reference range : /HPF. The refer ence range was not u sed to interpret th is result as normal/abnormal . Specimen Source (test code = 2795) Lab Interpretation (test Abnormal code = 67165-2) [facility] [id number] 05:25:57 Test Item Value Reference Range Interpretation Comments COLOR (BEAKER) (test code = 470) Yellow CLARITY (BEAKER) (test code = Clear 469) SPECIFIC GRAVITY UA (BEAKER) >= 1.001-1.035 (test code = 468) PH UA (BEAKER) (test code = 467) 5.5 5.0-8.0 PROTEIN UA (BEAKER) (test code = 30 mg/dL Negative A 464) GLUCOSE UA (BEAKER) (test code = Negative Negative 365) KETONES UA (BEAKER) (test code = Negative Negative 371) BILIRUBIN UA (BEAKER) (test code Negative Negative = 462) BLOOD UA (BEAKER) (test code = Moderate Negative A 461) NITRITE UA (BEAKER) (test code = Negative Negative 465) LEUKOCYTE ESTERASE UA (BEAKER) Trace Negative A (test code = 466) UROBILINOGEN UA (BEAKER) (test 1.0 mg/dL 0.2-1.0 code = 463) BACTERIA (BEAKER) (test code = Many 517) RBC UA-MANUAL (BEAKER) (test code >100 /HPF = 1659) WBC UA-MANUAL (BEAKER) (test code >100 /HPF = 1661) SQUAMOUS EPITHELIAL MANUAL 50-100 /HPF (BEAKER) (test code = 1663) SOURCE(BEAKER) (test code = 2795) COMPREHENSIVE METABOLIC [id number] 00:47:30 Test Item Value Reference Range Interpretation Comments TOTAL PROTEIN 5.8 gm/dL 6.0-8.5 L (BEAKER) (test code = 770) ALBUMIN (BEAKER) 2.6 g/dL 3.5-5.0 L (test code = 1145) ALKALINE PHOSPHATASE 50 U/L 30-115 (BEAKER) (test code = 346) BILIRUBIN TOTAL 1.3 mg/dL 0.1-1.2 H (BEAKER) (test code = 377) SODIUM (BEAKER) (test 135 meq/L 135-148 code = 381) POTASSIUM (BEAKER) 3.3 meq/L 3.6-5.5 L (test code = 379) CHLORIDE (BEAKER) 108 meq/L 98-106 H (test code = 382) CO2 (BEAKER) (test 20 meq/L 20-29 code = 355) BLOOD UREA NITROGEN 16 mg/dL 10-26 (BEAKER) (test code = 354) CREATININE (BEAKER) 0.83 mg/dL 0.50-1.20 (test code = 358) GLUCOSE RANDOM 151 mg/dL 70-110 H (BEAKER) (test code = 652) CALCIUM (BEAKER) 7.6 mg/dL 8.5-10.5 L (test code = 697) AST (SGOT) (BEAKER) 14 U/L 5-40 (test code = 353) ALT (SGPT) (BEAKER) 10 U/L 5-50 (test code = 347) EGFR (BEAKER) (test INSUFFIC IENT CLINICAL code = 1092) DATA TO CALCULA TE ESTIMATED GFR. Regional Operations Manager ID - [id number] ID - [id number] ID - [id number] ID - [id number] ID - [id number] ID - [id number] ID - [id number] ID - [id number] ID - [id number] ID - [id number] ID - [id number] ID - [id number] ID - [id number] ID - [id number] ID - [id number] ID -[id number] 00:40:39 Test Item Value Reference Range Interpretation Comments MAGNESIUM (BEAKER) (test code = 1.9 mg/dL 1.5-3.0 627) Regional Operations Manager ID - [id number] ID - [id number] ID - [id number] ID - [id number] 00:37:05 Test Item Value Reference Range Interpretation Comments PHOSPHORUS (BEAKER) (test code = 3.0 mg/dL 2.5-4.5 604) Regional Operations Manager ID - [id number] ACID, [id number] 00:37:05 Test Item Value Reference Range Interpretation Comments LACTATE BLOOD 0.78 mmol/L See_Comment [Automated me ssage] VENOUS (2) (BEAKER) The syst em which (test code = 2872) generated this result transmitted ref erence range: 0.50-<2. 00. The reference range was not used to interpr et this result as normal/abnormal . Regional Operations Manager ID - [id number] ID - [id number] ID - [id number] ID - [id number] [id number] 00:33:44 Test Item Value Reference Range Interpretation Comments PROTIME (BEAKER) 11.9 seconds 9.3-12.0 Final Infor mation (test code = 759) (Auto Outp ut) INR (BEAKER) (test 1.09 See_Comment Final Inf ormation code = 370) (Auto Output) [Automated mess age] The system ic h generated this result transmitted ref erence range: <=5.90. The reference range was not used to int erpret this result as normal/abnormal . RECOMMENDED COUMADIN/WARFARIN INR THERAPY RANGESSTANDARD DOSE: 2.0 - 3.0 Includes: PROPHYLAXIS for venous thrombosis, systemic embolization; TREATMENT for venous thrombosis and/or pulmonary embolus.HIGH RISK: Target INR is 2.5-3.5 for patients with mechanical heart valves.CBC W/PLT COUNT & AUTO [id number] 00:25:33 Test Item Value Reference Range Interpretation Comments WHITE BLOOD CELL COUNT (BEAKER) 18.1 K/ L 4.0-10.0 H (test code = 775) RED BLOOD CELL COUNT (BEAKER) 3.52 M/ L 4.00-5.00 L (test code = 761) HEMOGLOBIN (BEAKER) (test code = 11.2 GM/DL 12.0-15.5 L 410) HEMATOCRIT (BEAKER) (test code = 32.5 % 36.0-46.0 L 411) MEAN CORPUSCULAR VOLUME (BEAKER) 92.3 fL 82.0-99.0 (test code = 753) MEAN CORPUSCULAR HEMOGLOBIN 31.8 pg 27.0-33.0 (BEAKER) (test code = 751) MEAN CORPUSCULAR HEMOGLOBIN CONC 34.5 GM/DL 32.0-36.0 (BEAKER) (test code = 752) RED CELL DISTRIBUTION WIDTH 13.1 % 12.0-15.0 (BEAKER) (test code = 412) PLATELET COUNT (BEAKER) (test 172 K/CU MM 150-430 code = 756) MEAN PLATELET VOLUME (BEAKER) 9.2 fL 6.0-11.5 (test code = 754) NUCLEATED RED BLOOD CELLS 0 /100 WBC 0-0 (BEAKER) (test code = 413) NEUTROPHILS RELATIVE PERCENT 82 % (BEAKER) (test code = 429) LYMPHOCYTES RELATIVE PERCENT 9 % (BEAKER) (test code = 430) MONOCYTES RELATIVE PERCENT 8 % (BEAKER) (test code = 431) EOSINOPHILS RELATIVE PERCENT 0 % (BEAKER) (test code = 432) BASOPHILS RELATIVE PERCENT 0 % (BEAKER) (test code = 437) NEUTROPHILS ABSOLUTE COUNT 14.77 K/ L 1.80-8.00 H (BEAKER) (test code = 670) LYMPHOCYTES ABSOLUTE COUNT 1.59 K/ L 1.48-4.50 (BEAKER) (test code = 414) MONOCYTES ABSOLUTE COUNT (BEAKER) 1.40 K/ L 0.00-1.30 H (test code = 415) EOSINOPHILS ABSOLUTE COUNT 0.00 K/ L 0.00-0.50 (BEAKER) (test code = 416) BASOPHILS ABSOLUTE COUNT (BEAKER) 0.04 K/ L 0.00-0.20 (test code = 417) IMMATURE GRANULOCYTES-RELATIVE 2 % 0-0 H PERCENT (BEAKER) (test code = 2801) SARS-COV-2(COVID19),[id number] 00:00:00 Test Item Value Reference Range Interpretation Comments SARS-CoV-2 INTERPRETATION NEGATIVE SEE NOTE (test code = 77866-9) SOURCE (test code = 07712-0) NASOPHARYNGEAL Comp. Metabolic Panel (14) (CMP)[id number] 00:00:00 Test Item Value Reference Range Interpretation Comments Glucose (test code = 2345-7) 91 65-99 BUN (test code = 3094-0) 23 8-27 Creatinine (test code = 2160-0) 0.68 0.57-1.00 eGFR If NonAfricn Am (test code = 87 >59 18938-0) eGFR If Africn Am (test code = 16575-8) 100 >59 BUN/Creatinine Ratio (test code = 34 - 3097-3) Sodium (test code = 2951-2) 141 134-144 Potassium (test code = 2823-3) 4.5 3.5-5.2 Chloride (test code = 2075-0) 104 96-106 Carbon Dioxide, Total (test code = 24 -2027-12) Calcium (test code = 07922-0) 8.8 8.7-10.3 Protein, Total (test code = 2885-2) 7.1 6.0-8.5 Albumin (test code = 1751-7) 3.9 3.7-4.7 Globulin, Total (test code = 02644-7) 3.2 1.5-4.5 A/G Ratio (test code = 1759-0) 1.2 1.2-2.2 Bilirubin, Total (test code = 1974-) 0.6 0.0-1.2 Alkaline Phosphatase (test code = 77 44-121 6768-6) AST (SGOT) (test code = 1920-8) 15 0-40 ALT (SGPT) (test code = 1742-6) 15 0-32 SARS-COV 2 AntigenSARS-COV 2 AntigenSARS-COV 2 AntigenSARS-COV 2 Antigen
--- NOTE | 2022-06-06 14:18 | RAD REPORT ---
EXAM DESCRIPTION: RAD - Chest Single View - 06/06/2022 2:07 pm CLINICAL HISTORY: CHEST PAIN Chest pain. COMPARISON: Chest Single View dated 02/08/2022; Chest Single View dated 11/26/2020 FINDINGS: Portable technique limits examination quality. The lungs are grossly clear. The heart is normal in size. No displaced fractures. IMPRESSION: No acute intrathoracic process suspected.
[2022-06-06 14:48] LABS: Absolute Lymphocytes (CBC) 1.9 K/uL (0.7-4.9); Hematocrit 35.8 % (36.0-45.0); Lymphocytes % 30.2 % (15.3-44.8); MCV 91.3 fL (80-100); MPV 7.7 fL (7.6-11.3); RBC Red Blood Cell Count 3.92 M/uL (3.86-4.86)
[2022-06-06 15:12] LABS: Potassium 3.9 mmol/L (3.5-5.1); Troponin High Sensitivity 6.9 pg/mL (<58.9)
--- NOTE | 2022-06-06 16:09 | RAD REPORT ---
EXAM DESCRIPTION: CT - Chest For Pe Angio - 06/06/2022 3:57 pm CLINICAL HISTORY: Chest pain. Chest pain COMPARISON: No comparisons TECHNIQUE: CT angiogram of the pulmonary arteries was performed with MIP. All CT scans are performed using dose optimization technique as appropriate and may include automated exposure control or mA/KV adjustment according to patient size. FINDINGS: No evidence of pulmonary thromboembolism. No acute aortic finding demonstrated. The lungs are clear. No significant pericardial or pleural fluid. No concerning bony finding. IMPRESSION: No evidence of pulmonary thromboembolism. No acute lung findings.
--- NOTE | 2022-06-06 16:17 | EDPHYS ---
Physician Documentation [facility] Name: Oralia Garcia Age: 76 yrs Sex: Female : 1945 Arrival Date: 06/06/2022 Time: 13:39 Bed 18 Private MD: [facility] ED Physician Matteo Garner HPI: 06/06 14:35 This 76 yrs old Female presents to ER via Ambulatory with complaints of Chest Pain. ms3 14:35 76-year-old female with past medical history of anxiety, depression, restless legs, ms3 sciatica presents for chest spasms that began last night. Patient states the spasms last for a few seconds and are rated a 10/10. Patient states her current pain is a 0/10. Patient denies alleviating factors. Patient states the pain is worse with some movements.. Historical: - Allergies: 13:42 Codeine; ld1 13:42 Darvon; ld1 13:42 Morphine; ld1 - PMHx: 13:42 Anxiety; Depression; restless leg; SIATICA; ld1 - PSHx: 13:42 Cholecystectomy; Total abdominal hysterectomy; ld1 - Immunization history:: Adult Immunizations not immunized, Client reports receiving the 2nd dose of the Covid vaccine. - Social history:: Smoking status: Patient denies any tobacco usage or history of. Patient/guardian denies using alcohol. ROS: 14:35 Constitutional: Negative for fever, and chills. Neck: Negative for injury, pain, and ms3 swelling. 14:35 Respiratory: Negative for shortness of breath, cough, wheezing, and pleuritic chest pain, Abdomen/GI: Negative for abdominal pain, nausea, vomiting, diarrhea, and constipation, MS/Extremity: Negative for injury and deformity, Skin: Negative for injury, rash, and discoloration. 14:35 Cardiovascular: Positive for chest pain. 14:35 All other systems are negative. Exam: 13:48 ECG was reviewed by the Attending Physician. ms3 14:35 Constitutional: This is a well developed, well nourished patient who is awake, alert, ms3 and in no acute distress. Head/Face: Normocephalic, atraumatic. Neck: Trachea midline, no cervical lymphadenopathy. Supple, full range of motion without nuchal rigidity, or vertebral point tenderness. No Meningismus. Cardiovascular: Regular rate and rhythm with a normal S1 and S2. No gallops, murmurs, or rubs. Normal PMI, no JVD. No pulse deficits. Respiratory: Lungs have equal breath sounds bilaterally, clear to auscultation and percussion. No rales, rhonchi or wheezes noted. No increased work of breathing, no retractions or nasal flaring. Abdomen/GI: Soft, non-tender, with normal bowel sounds. No distension or tympany. No guarding or rebound. No evidence of tenderness throughout. Back: No spinal tenderness. No costovertebral tenderness. Full range of motion. Skin: Warm, dry with normal turgor. Normal color with no rashes, no lesions, and no evidence of cellulitis. MS/ Extremity: Pulses equal, no cyanosis. Neurovascular intact. Full, normal range of motion. 14:35 Psych: Awake, alert, with orientation to person, place and time. Behavior, mood, and affect are within normal limits. 14:35 Chest/axilla: Inspection: normal, Palpation: tenderness, that is moderate, of the Left lateral chestwall. Vital Signs: 13:40 Pulse 91; Resp 18; Temp 98.9(O); Pulse Ox 99% on R/A; Weight 86.18 kg; Height 5 ft. 4 ld1 in. (162.56 cm); Pain 0/10; 13:43 BP 119 / 65; ld1 15:48 BP 153 / 58; Pulse 82; Pulse Ox 100% on R/A; ap3 13:40 Body Mass Index 32.61 (86.18 kg, 162.56 cm) ld1 MDM: 13:46 Patient medically screened. ms3 18:08 Differential diagnosis: abnormal EKG, acute myocardial infarction, coronary artery ms3 disease chest wall pain, pulmonary embolus. HEART Score: History: Slightly Suspicious (0), ECG: Normal (0), Age: > or = 65 years (2), Risk Factors: No Risk Factors Known (0), Troponin: < or = 1 x Normal Limit (0), Total Score = 2. 18:09 Data reviewed: vital signs, nurses notes, lab test result(s), EKG, radiologic studies, ms3 and as a result, I will discharge patient. Consideration of Admission/Observation Escalation of care including admission/observation considered. Troponin negative, heart score 2, CT PE negative.. Independent interpretation of the following test(s) in the Emergency Department X-Ray: My interpretation is Chest x-ray image reviewed by me negative.. Counseling: I had a detailed discussion with the patient and/or guardian regarding: the historical points, exam findings, and any diagnostic results supporting the discharge/admit diagnosis, lab results, radiology results, the need for outpatient follow up, to return to the emergency department if symptoms worsen or persist or if there are any questions or concerns that arise at home. ED course: Discussed labs, EKG, chest x-ray, CTA with patient. Patient to follow-up with Dr. Cruz as discussed. Patient or stands and agrees with plan. All questions were answered. Return precautions discussed include worsening symptoms, or any other concerns. On reevaluation patient is alert and oriented x4, no apparent distress, nontoxic, ambulatory in emergency department, speaking full sentences. 06/06 13:44 Order name: Basic Metabolic Panel; Complete Time: 15:30 06/06 13:44 Order name: CBC with Diff; Complete Time: 15:30 06/06 13:44 Order name: D-Dimer; Complete Time: 15:30 06/06 13:44 Order name: Troponin HS; Complete Time: 15:30 06/06 13:44 Order name: XRAY Chest (1 view); Complete Time: 14:46 06/06 15:30 Order name: CT Chest For PE Angio; Complete Time: 16:11 ms3 06/06 13:44 Order name: EKG; Complete Time: 13:44 06/06 13:44 Order name: Cardiac monitoring; Complete Time: 14:29 06/06 13:44 Order name: EKG - Nurse/Tech; Complete Time: 13:44 06/06 13:44 Order name: IV Saline Lock; Complete Time: 14:29 06/06 13:44 Order name: Labs collected and sent; Complete Time: 14:29 06/06 13:44 Order name: O2 Per Protocol; Complete Time: 13:44 06/06 13:44 Order name: O2 Sat Monitoring; Complete Time: 13:44 ld EC:48 Rate is 88 beats/min. Rhythm is regular. QRS [place] is Normal. VT interval is normal. QRS ms3 interval is normal. Clinical impression: Normal ECG. Interpreted by me. Reviewed by me. Administered Medications: No medications were administered Disposition Summary: 06/06/22 16:17 Discharge Ordered Location: Home ms3 Condition: Stable ms3 Diagnosis - Chest pain, unspecified ms3 - Shortness of breath ms3 - Elevated blood-pressure reading, without diagnosis of hypertension ms3 Followup: ms3 - With: Jaziel Felder DO - When: 2 - 3 days - Reason: Recheck today's complaints Discharge Instructions: - Discharge Summary Sheet ms3 - Nonspecific Chest Pain, Adult ms3 - Shortness of Breath, Adult ms3 Forms: - Medication Reconciliation Form ms3 - Thank You Letter ms3 - Antibiotic Education ms3 - Prescription Opioid Use ms3 Prescriptions: - Cyclobenzaprine 5 mg Oral Tablet - take 1 tablet by ORAL route 3 times per day As needed; 15 tablet; Refills: 0, ms3 Product Selection Permitted Signatures: Dispatcher [employer] EDMatteo Carlson DO DO ms3 Margarette Reyes, RN RN ld1
--- NOTE | 2022-06-06 16:17 | ER ---
Nurse's Notes [facility] Name: Oralia Garcia Age: 76 yrs Sex: Female : 1945 Arrival Date: 06/06/2022 Time: 13:39 Bed 18 Private MD: Jaziel Felder Diagnosis: Chest pain, unspecified;Shortness of breath;Elevated blood-pressure reading, without diagnosis of hypertension Presentation: 06/06 13:40 Chief complaint: Patient states: Chest spasms began last night before bed. Coronavirus ld1 screen: At this time, the client does not indicate any symptoms associated with coronavirus-19. Ebola Screen: No symptoms or risks identified at this time. Initial Sepsis Screen: Does the patient meet any 2 criteria? No. Patient's initial sepsis screen is negative. Does the patient have a suspected source of infection? No. Patient's initial sepsis screen is negative. Risk Assessment: Do you want to hurt yourself or someone else? Patient reports no desire to harm self or others. Onset of symptoms was June 06, 2022. 13:40 Method Of Arrival: Ambulatory ld1 13:40 Acuity: LIGIA 3 ld1 Triage Assessment: 13:42 General: Appears in no apparent distress. comfortable, Behavior is calm, cooperative, ld1 appropriate for age. Pain: Complains of pain in chest Pain does not radiate. Pain currently is 0 out of 10 on a pain scale. at worst was 10 out of 10 on a pain scale. Quality of pain is described as throbbing. EENT: No signs and/or symptoms were reported regarding the EENT system. Neuro: Level of Consciousness is awake, alert, obeys commands, Oriented to person, place, time, situation. Cardiovascular: Capillary refill < 3 seconds Patient's skin is warm and dry. Respiratory: Airway is patent Respiratory effort is even, unlabored. GI: Abdomen is round non-distended. : No signs and/or symptoms were reported regarding the genitourinary system. Derm: No signs and/or symptoms reported regarding the dermatologic system. Musculoskeletal: No signs and/or symptoms reported regarding the musculoskeletal system. Historical: - Allergies: 13:42 Codeine; ld1 13:42 Darvon; ld1 13:42 Morphine; ld1 - PMHx: 13:42 Anxiety; Depression; restless leg; SIATICA; ld1 - PSHx: 13:42 Cholecystectomy; Total abdominal hysterectomy; ld1 - Immunization history:: Adult Immunizations not immunized, Client reports receiving the 2nd dose of the Covid vaccine. - Social history:: Smoking status: Patient denies any tobacco usage or history of. Patient/guardian denies using alcohol. Screenin:35 [facility] ED Fall Risk Assessment (Adult) History of falling in the last 3 months, ap3 including since admission Yes- single mechanical fall (1 pt) Confusion or Disorientation No (0 pts) Intoxicated or Sedated No (0 pts). Abuse screen: Denies threats or abuse. Nutritional screening: No deficits noted. Tuberculosis screening: No symptoms or risk factors identified. Assessment: 14:29 General: Appears comfortable, Behavior is calm, cooperative. Pain: Complains of pain in ap3 diaphragm and left breast Pain radiates to back Pain began gradually, 1 day ago. Neuro: Level of Consciousness is awake, alert, obeys commands, Oriented to person, place, time, situation, Speech is normal. Cardiovascular: Patient's skin is warm and dry. Respiratory: Airway is patent Respiratory effort is even, unlabored, Respiratory pattern is regular, symmetrical. Vital Signs: 13:40 Pulse 91; Resp 18; Temp 98.9(O); Pulse Ox 99% on R/A; Weight 86.18 kg; Height 5 ft. 4 ld1 in. (162.56 cm); Pain 0/10; 13:43 BP 119 / 65; ld1 15:48 BP 153 / 58; Pulse 82; Pulse Ox 100% on R/A; ap3 13:40 Body Mass Index 32.61 (86.18 kg, 162.56 cm) ld1 ED Course: 13:39 Patient arrived in ED. am2 13:39 Jaziel Felder DO is Private Physician. am2 13:42 Triage completed. ld1 13:42 Arm band placed on right wrist. EKG completed in triage. Results shown to MD. ld1 13:46 Matteo Garner DO is Attending Physician. ms3 14:03 XRAY Chest (1 view) In Process Unspecified. EDMS 14:22 Pallavi To, TRICIA is Primary Nurse. ap3 14:35 Patient has correct armband on for positive identification. Bed in low position. Call ap3 light in reach. Side rails up X 1. theatrical rigger on. Pulse ox on. NIBP on. Door closed. Noise minimized. 14:35 No provider procedures requiring assistance completed. Patient maintains SpO2 ap3 saturation greater than 95% on room air. 15:59 CT Chest For PE Angio In Process Unspecified. EDMS 16:16 aJziel Felder DO is Referral Physician. ms3 16:26 IV discontinued, intact, bleeding controlled, No redness/swelling at site. Pressure ap3 dressing applied. Administered Medications: No medications were administered Medication: 14:35 VIS not applicable for this client. ap3 Outcome: 16:17 Discharge ordered by MD. ms3 16:25 Discharged to home ambulatory. ap3 16:25 Condition: good 16:25 Discharge instructions given to patient, Instructed on discharge instructions, follow up and referral plans. medication usage, Demonstrated understanding of instructions, follow-up care, medications, Prescriptions given X 1. 16:34 Patient left the ED. ap3 Signatures: Dispatcher [employer] EDSC Pallavi Valentine am2 Pallavi To, RN RN ap3 Matteo Garner DO DO ms3 Margarette Reyes RN RN ld1
[2022-06-06 17:03] VITALS: TEMP 98.9
[2022-06-06 17:04] VITALS: BP 153/58; O2SAT 100
== END 2022-06-06 16:34 | disposition home or self-care (01) ==
LOC: ER 13:33
DX: R07.89 Other chest pain (principal); R03.0 Elevated blood-pressure reading, without diagnosis of hypertension; R06.02 Shortness of breath; Z88.5 Allergy status to narcotic agent
CPT/HCPCS: 85025; 80048; 36415; 85379; 84484; 71275; 71045; Q9967; 93005

== ENCOUNTER 2022-10-11 10:57 | Day surgery (SDC) | payer OTHER ==
[2022-10-11] MEDS: Ringers Lactate 1,000 ML IV ONE ×2 (11:27→11:46)
[2022-10-11] MEDS ORDERED: BUPIVACAINE 0.25% PF 10 ML VIAL ONE (11:35)
[2022-10-11] MEDS ORDERED: LIDOCAINE 1% 20 ML MDV ONE (11:36)
[2022-10-11] MEDS ORDERED: TRIAMCINOLONE ACETON 40 MG/ML VIAL ONE (11:36)
[2022-10-11] MEDS ORDERED: LIDOCAINE 2% MPF 5 ML VIAL ONE (11:52)
[2022-10-11] MEDS ORDERED: propofoL 200 MG/20 ML VIAL IV ONE ×2 (11:52→12:51)
[2022-10-11] MEDS ORDERED: HYDROCODONE/APAP 10/325 TAB ONE (13:26)
[2022-10-11 13:45] VITALS: O2SAT 100
--- NOTE | 2022-10-11 13:50 | RAD REPORT ---
EXAM DESCRIPTION: RAD - Fluoroscopy <1 Hour - 10/11/2022 1:43 pm CLINICAL HISTORY: BILATERAL SACROILITIS INJECTION COMPARISON: None available. FINDINGS: Two Images were sent to PACS, documenting needle positions during an image guided sacroili ac injection pain procedure. No radiologist was available for the procedure, nor will any image inter pretation he provided. Please refer to the procedural report for additional details. Fluoroscopy time: 0.4 Minutes. IMPRESSION: Documentation of fluoroscopy utilization as above.
[2022-10-11 13:52] VITALS: BP 112/63
[2022-10-11 13:56] VITALS: TEMP 97
== END 2022-10-11 13:32 | disposition home or self-care (01) ==
LOC: PRE 10:57 → OR 13:32
PROVIDERS: ATTEND Pain Medicine Interventional Pain Medicine
PROC: 3E0U33Z Introduction of Anti-inflammatory into Joints, Percutaneous Approach (ICD-10-PCS; principal; 2022-10-11 12:15)
DX: M46.1 Sacroiliitis, not elsewhere classified (principal); M54.16 Radiculopathy, lumbar region; M60.9 Myositis, unspecified; M70.61 Trochanteric bursitis, right hip; M70.62 Trochanteric bursitis, left hip; G89.4 Chronic pain syndrome; Z79.891 Long term (current) use of opiate analgesic
CPT/HCPCS: 27096; J2704 ×2; J2001 ×2; J3301; J7120; Q9967; 76000

== ENCOUNTER 2022-10-30 20:34 | Emergency (ER) | payer OTHER ==
--- OUTSIDE RECORDS SUMMARY | 2022-10-30 21:01 | XMS REPORT | Continuity of Care Document ---
:1945 Author Organization [facility] t Address [address] [place] [address]. [address] [place] [address] Care Team Providers Name Role Phone TOM FELDER Primary Care Physician Unavailable Tom Felder Attending Clinician Unavailable Osmar Rouse MD Attending Clinician Leena Singleton OT Attending Clinician Unavailable Hector VILLATORO, Dottie Ware Attending Clinician Lorraine Mitchell RN Attending Clinician Unavailable Shannan Hung Attending Clinician Garrett Chávez MD Attending Clinician GARRETT CHÁVEZ Attending Clinician Unavailable Lottie Shirley Attending Clinician Valentin Attending Clinician Unavailable Fam Attending Clinician Unavailable AUSTIN Attending Clinician Unavailable Margarita Quintero Attending Clinician [phone] MILLER COLEMAN Attending Clinician Unavailable Estuardo Mc Attending Clinician [phone] Brent VILLATORO, Javy Ruelas Attending Clinician [phone] Maribell Collins MD Attending Clinician Randy VILLATORO, Nanda Macias Attending Clinician MARIBELL SURESH Attending Clinician Unavailable Da VLILATORO, Jacob Garcia Attending Clinician Estuardo Mc MD Attending Clinician Kautz_S Attending Clinician Unavailable OSMAR ROUSE Admitting Clinician Unavailable GARRETT CHÁVEZ Admitting Clinician Unavailable Valentin Admitting Clinician Unavailable Fam Admitting Clinician Unavailable DAVID_S Admitting Clinician Unavailable MILLER COLEMAN Admitting Clinician Unavailable NANDA DUBON Admitting Clinician Unavailable [place]_S Admitting Clinician Unavailable Payers Payer Name Policy Type Policy Effective Date Expiration Date Sour ce Number [facility] [id number] 2020 (MEDICARE 00:00:00 REPLACEMENT HMO) [place] [id number] 2020 [facility] 00:00:00 - [facility] MEDICARE NOVITAS [id number] 2013 [facility] 00:00:00 - [facility] MEDICARE NOVITAS [id number] 2013 [facility] 00:00:00 - [facility] [place] [id number] 2020 [facility] 00:00:00 - [place] [id number] 2020 [facility] 00:00:00 - [facility] MEDICARE NOVITAS MB [id number] 2013 [facility] 00:00:00 - [facility] [place] [id number] 2020 [facility] 00:00:00 - [facility] MEDICARE NOVITAS MB [id number] 2013 [facility] 00:00:00 - [facility] MEDICARE NOVITAS [id number] 2013 [facility] 00:00:00 - [place] [id number] [facility] - [facility] MEDICARE NOVITAS MB [id number] 2013 [facility] 00:00:00 - [facility] C1 [id number] [facility] Health C1 [id number] [facility] - [facility] MEDICARE NOVITAS MB [id number] 2013 [facility] 00:00:00 - [facility] Problems Condition Condition Condition Status Onset Resolution Last Treating Co mments Source Name Details Category Date Date Treatment Clinician Date Fracture, Fracture, Disease Active 2021-04 Overview: Methodi Maria Fernandas, Nely, [address] left, left, 00:00: g of this Hospita closed closed 00 note l might be different from the original. Added automatic ally from request for surgery [id number] Left Left Disease Active 2021-04 Overview: Method i carpal carpal 05-[address] tunnel tunnel 00:00: g of this Hospita syndrome syndrome 00 note l might be different from the original. Added automatic ally from request for surgery [id number] Severe Severe Disease Recurre [facility] sepsis [facility] Right Right Disease Active [facility] ureteral [facility]teral [facility] calculus calculus 00:00: Medica l 00 Center Acute UTI Acute UTI Disease Active [facility] (urinary (urinary [facility] tract tract 00:00: Medical infection) infection) 00 Ce nter Gastro-eso Gastro-eso Problem C ommon phageal phageal Spirit reflux reflux - CHI disease disease St without without [facility] esophagiti esophagiti Me dical s s Center [id number] Vitamin D Problem Comm on deficiency Spirit - [facility] Restless Restless Problem Commo n legs leg Spirit syndrome syndrome - [facility] Malaise Malaise Problem Common and and Spirit fatigue fatigue - [facility] Essential Benign Problem Common hypertensi essential Spi rit on HTN - [facility] 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 - [facility] depressive [facility] [id number] Current Problem Common moderate Spirit episode of - [facility] major depressive [facility] disorder Medical without Center prior episode Postural Postural Problem Commo n vertigo vertigo Spirit - [facility] [id number] Tear of Problem Commo n right [facility] extent, Center unspecifie d whether traumatic Sciatica Low back Problem Commo n pain with Spirit left-sided - [facility], [facility] Medical pain Center laterality , unspecifie d chronicity [id number] Daytime Problem Comm on 00 somnolence Spirit - [facility] [id number] Mixed Problem Common hyperlipid Spirit emia - [facility] [id number] Vitamin Problem Commo n B12 Spirit deficiency - [facility] [id number] Constipati Problem Com mon on, Spirit unspecifie - [facility] [id number] Insomnia, Problem Com mon unspecifie Spirit d type - [facility] [id number] Body mass Problem Com mon index Spirit [BMI] - [facility] 34.0-34.9, [facility] [id number] Other Problem Common obesity 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 [facility] [id number] Status Problem Common post Spirit cystoscopy - [facility] with ureteral [facility] stent Medical placement Center Carpal Carpal Problem Common tunnel tunnel Spirit syndrome syndrome - [facility] No known No known Disease Unive rs active active ity of problems problems [facility] Allergies, Adverse Reactions, Alerts Allergy Allergy Status Severity Reaction(s) Onset Inactive Treating Comm ents Source Name Type Date Date Clinician Acetamin Propensi Active GI 2021-04 Method i ophen-Co ty to Intolerance 05-[address] [facility] adverse 00:00: Hospita reaction 00 l s to drug MORPHINE Allergy Active Itching [facility] 00:[facility] Medical 00 Center CODEINE Allergy Active Low Rash [facility] 00:00: Medical 00 Debary Codeine Propensi Active Rash [facility] ty to 5-25 [facility] adverse 00:00: Medical reaction 00 Center s Morphine Drug Active Itching [facility] Allergy 5-25 [facility] 00:[facility]: Medical 00 Center NO KNOWN Drug Active Univers ALLERGIE Class ity of S [facility] NO KNOWN Allergy Active [facility] Morphine Morphine Active rash [facility] - [facility] Family History Family Member Diagnosis Comments Start Date Stop Date Source Natural mother Heart disease [facility] Natural mother Parkinsonism [facility] Social History Social Habit Start Date Stop Date Quantity Comments Source Gender identity 2022-01-31 Identifies as Method ist 13:35:49 female gender Hospital (finding) History of Tobacco [facility] - Use [facility] Sexual orientation Method ist Hospital History SDOH [facility] Alcohol Comment Medical C enter History SDOH [facility] Transport Non-Med Medical Center History SDOH [facility] Alcohol Std Drinks Medica l Center History SDOH [facility] Alcohol Binge Medical Eren ter History of Social 2022-05-18 2022-05-[address] function 00:00:00 00:00:00 Hospital Exposure to 2022-02-19 2022-03-01 Not sure University of SARS-CoV-2 (event) 00:00:00 17:44:00 [facility] Alcohol intake 2021-09-23 2021-09-[address] [facility] 00:00:00 00:00:00 non-drinker Medical Cente r (finding) History [facility] 2021-09-22 2021-09-[address] [facility] Transport Med 00:00:00 00:00:[address] History [facility] 2021-09-22 2021-09-[address] [facility] Housing Unable to 00:00:00 00:00:00 Medical Center Pay History [facility] 2021-09-22 2021-09-[address] [facility] Housing Places 00:00:00 00:00:00 Medical Ce nter Lived History [facility] 2021-09-22 2021-09-[address] [facility] Housing Homeless 00:00:00 00:00:00 Medical Center Last Year History [facility] 2021-09-21 2021-09-[address] [facility] Alcohol Frequency 00:00:00 00:00:00 Medical Center Tobacco use and 2021-09-21 2021-09-[address] [facility] exposure 00:00:00 00:00:00 Medical Center Sex Assigned At [address] [facility] 00:00:00 00:00:00 Medical Center Smoking Status Start Date Stop Date Source Tobacco smoking consumption [facility] unknown Branch Never smoked tobacco [facility] Medications Ordered Filled Start Stop Current Ordering Indication Dosage Frequency Signature Comments Components Source Medication Medication Date Date Medication? Clinician (SIG) Name Name Vitamin B12 Vitamin B12 2021-04 No 1000ug Common (Cyanocobal (Cyanocobal 2-15 S pirit rivera) rivera) 00:00: - [facility] Vitamin B12 Vitamin B12 2021-04 No 1000ug Common (Cyanocobal (Cyanocobal 2-15 S pirit rivera) rivera) 00:00: - [facility] Vitamin B12 Vitamin B12 2021-04 No 1000ug Common (Cyanocobal (Cyanocobal 2-15 S pirit rivera) rivera) 00:00: - [facility] Cyanocobala Cyanocobala 2021-04 No 1000ug Common min min 2-15 Spirit 00:00: - [facility] Vitamin B12 Vitamin B12 2021-04 No 1000ug Common (Cyanocobal (Cyanocobal 2-01 S pirit rivera) rivera) 00:00: - [facility] Vitamin B12 Vitamin B12 2021-04 No 1000ug Common (Cyanocobal (Cyanocobal 2-01 S pirit rivera) rivera) 00:00: - [facility] Vitamin B12 Vitamin B12 2021-04 No 1000ug Common (Cyanocobal (Cyanocobal 2-01 S pirit rivera) rivera) 00:00: - [facility] Vitamin B12 Vitamin B12 2021-04 No 1000ug Common (Cyanocobal (Cyanocobal 2-01 S pirit rivera) rivera) 00:00: - [facility] Cyanocobala Cyanocobala 2021-04 No 1000ug Common min min 2-01 Spirit 00:00: - [facility] celecoxib 2021-04 Yes celecoxib Met hodi (CeleBREX) [...] tablet 15:38: tablet Hospit a 39 l celecoxib 2021-04 Yes celecoxib [facility] (CeleBREX) [...] 2021-04- No albuterol Me thodi (PROAIR 05-[address] HFA) 90 14:34: 00:00 HFA 90 Hospita mcg/actuati 43 :00 mcg/actuat l on inhaler ion aerosol inhaler INHALE 2 PUFFS BY MOUTH EVERY 6 HOURS NEEDED FOR COUGH OR WHEEZING OR SHORTNESS OF BREATH albuterol 2021-04- No albuterol Me thodi (PROAIR 05-[address] HFA) 90 14:34: 00:00 HFA 90 Hospita mcg/actuati 43 :00 mcg/actuat l on inhaler ion aerosol inhaler INHALE 2 PUFFS BY MOUTH EVERY 6 HOURS NEEDED FOR COUGH OR WHEEZING OR SHORTNESS OF BREATH acetaminoph 2021-04- No [id number] 1{tbl} Q6H Take 1 Methodi en-codeine 05-[address] (TYLENOL 00:00: 05:59 mouth Hospita WITH 00 :00 every 6 l CODEINE #3) (six) 300-30 mg hours as per tablet needed for moderate pain for up to 5 days .acute pain. acetaminoph 2021-04- [place] [id number] 1{tbl} Q6H Take 1 Methodi en-codeine 05-[address] (TYLENOL 00:00: 05:59 mouth [...] Wed Branch 03/01/22 at 1900, STAT HYDROcodone 2021-04- No 1{tbl} 1 tablet, Univers -acetaminop 05-01 Oral, ity of hen (NORCO 23:00: 00:04 ONCE, 1 Adis as 5) 5-325 mg 00 :00 dose, On Medi brad tablet 1 Wed Branch tablet 03/01/22 at 1800, PRIYA HYDROcodone 2021-04- No [id number] 1{tbl} Take 1 U nivers [...] S pirit rivera) rivera) 00:00: - [facility] Vitamin B12 Vitamin B12 2021-04 No 1000ug Common (Cyanocobal (Cyanocobal 0-27 S pirit rivera) rivera) 00:00: - [facility] Vitamin B12 Vitamin B12 2021-04 No 1000ug Common (Cyanocobal (Cyanocobal 0-27 S pirit rivera) rivera) 00:00: - [facility] Vitamin B12 Vitamin B12 2021-04 No 1000ug Common (Cyanocobal (Cyanocobal 0-27 S pirit rivera) rivera) 00:00: - [facility] Vitamin B12 Vitamin B12 2021-04 No 1000ug Common (Cyanocobal (Cyanocobal 0-27 S pirit rivera) rivera) 00:00: - [facility] Vitamin B12 Vitamin B12 2021-04 No 1000ug Common (Cyanocobal (Cyanocobal 0-27 S pirit rivera) rivera) 00:00: - [facility] Cyanocobala Cyanocobala 2021-04 No 1000ug Common min min 0-27 Spirit 00:00: - [facility] Vitamin B12 Vitamin B12 2021-04 No 1000ug Common (Cyanocobal (Cyanocobal 0-14 S pirit rivera) rivera) 00:00: - [facility] Vitamin B12 Vitamin B12 2021-04 No 1000ug Common (Cyanocobal (Cyanocobal 0-14 S pirit rivera) rivera) 00:00: - [facility] Vitamin B12 Vitamin B12 2021-04 No 1000ug Common (Cyanocobal (Cyanocobal 0-14 S pirit rivera) rivera) 00:00: - [facility] Vitamin B12 Vitamin B12 2021-04 No 1000ug Common (Cyanocobal (Cyanocobal 0-14 S pirit rivera) rivera) 00:00: - [facility] Vitamin B12 Vitamin B12 2021-04 No 1000ug Common (Cyanocobal (Cyanocobal 0-14 S pirit rivera) rivera) 00:00: - [facility] Vitamin B12 Vitamin B12 2021-04 No 1000ug Common (Cyanocobal (Cyanocobal 0-14 S pirit rivera) rivera) 00:00: - [facility] Vitamin B12 Vitamin B12 2021-04 No 1000ug Common (Cyanocobal (Cyanocobal 0-14 S pirit rivera) rivera) 00:00: - [facility] Vitamin B12 Vitamin B12 2021-04 No 1000ug Common (Cyanocobal (Cyanocobal 0-14 S pirit rivera) rivera) 00:00: - [facility] Cyanocobala Cyanocobala 2021-04 No 1000ug Common min min 0-14 Spirit 00:00: - [facility] Sulfamethox Sulfamethox 2021-04- No 1{table BID Sulfametho [...] TID Pyridium 200 MG 200 MG 0-14 10-16 t_after 200 MG 00:00: 00:00 _meals} 00 [...] a 55 l gabapentin 2021-04 Yes 100mg [id number] Take 1 Methodi (Neurontin) 0-[id number] 100 mg 00:00: 3D (100 mg Hospita capsule 00 total) by l mouth 3 (three) times a day. gabapentin 2021-04- No 100mg Q.[id number] Take 1 [facility] (Neurontin) 0-10 11-[id number] 100 mg 00:00: 00:00 3D (100 mg Hospita capsule 00 :00 total) by l mouth 3 (three) times a day. gabapentin 2021-04- No 100mg Q.[id number] Take 1 [facility] (Neurontin) 0-10 11-[id number] 100 mg 00:00: 00:00 3D (100 mg Hospita capsule 00 :00 total) by l mouth 3 (three) times a day. Vitamin B12 Vitamin B12 0 No 1000ug Common (Cyanocobal (Cyanocobal 9-28 S pirit rivera) rivera) 00:00: - [facility] Vitamin B12 Vitamin B12 2021-0 No 1000ug Common (Cyanocobal (Cyanocobal 9-28 S pirit rivera) rivera) 00:00: - [facility] Vitamin B12 Vitamin B12 2021-0 No 1000ug Common (Cyanocobal (Cyanocobal 9-28 S pirit rivera) rivera) 00:00: - [facility] Vitamin B12 Vitamin B12 2021-0 No 1000ug Common (Cyanocobal (Cyanocobal 9-28 S pirit rivera) rivera) 00:00: - [facility] Vitamin B12 Vitamin B12 2021-0 No 1000ug Common (Cyanocobal (Cyanocobal 9-28 S pirit rivera) rivera) 00:00: - [facility] Vitamin B12 Vitamin B12 2021-0 No 1000ug Common (Cyanocobal (Cyanocobal 9-28 S pirit rivera) rivera) 00:00: - [facility] Vitamin B12 Vitamin B12 2021-0 No 1000ug Common (Cyanocobal (Cyanocobal 9-28 S pirit rivera) rivera) 00:00: - [facility] Vitamin B12 Vitamin B12 2021-0 No 1000ug Common (Cyanocobal (Cyanocobal 9-28 S pirit rivera) rivera) 00:00: - [facility] Vitamin B12 Vitamin B12 2021-0 No 1000ug Common (Cyanocobal (Cyanocobal 9-28 S pirit rivera) rivera) 00:00: - [facility] Vitamin B12 Vitamin B12 2021-0 No 1000ug Common (Cyanocobal (Cyanocobal 9-28 S pirit rivera) rivera) 00:00: - [facility] Cyanocobala Cyanocobala 2021-0 No 1000ug Common min min 9-28 Spirit 00:00: - [facility] Vitamin B12 Vitamin B12 2021-0 No 1000ug Common (Cyanocobal (Cyanocobal 9-14 S pirit rivera) rivera) 00:00: - [facility] Vitamin B12 Vitamin B12 2021-0 No 1000ug Common (Cyanocobal (Cyanocobal 9-14 S pirit rivera) rivera) 00:00: - [facility] Vitamin B12 Vitamin B12 2021-0 No 1000ug Common (Cyanocobal (Cyanocobal 9-14 S pirit rivera) rivera) 00:00: - [facility] Vitamin B12 Vitamin B12 2021-0 No 1000ug Common (Cyanocobal (Cyanocobal 9-14 S pirit rivera) rivera) 00:00: - [facility] Vitamin B12 Vitamin B12 2-0 No 1000ug Common (Cyanocobal (Cyanocobal 9-14 S pirit rivera) rivera) 00:00: - [facility] Vitamin B12 Vitamin B12 2-0 No 1000ug Common (Cyanocobal (Cyanocobal 9-14 S pirit rivera) rivera) 00:00: - [facility] Vitamin B12 Vitamin B12 2022-0 No 1000ug Common (Cyanocobal (Cyanocobal 9-14 S pirit rivera) rivera) 00:00: - [facility] Vitamin B12 Vitamin B12 2022-0 No 1000ug Common (Cyanocobal (Cyanocobal 9-14 S pirit rivera) rivera) 00:00: - [facility] Vitamin B12 Vitamin B12 2-0 No 1000ug Common (Cyanocobal (Cyanocobal 9-14 S pirit rivera) rivera) 00:00: - [facility] Vitamin B12 Vitamin B12 2021-0 No 1000ug Common (Cyanocobal (Cyanocobal 9-14 S pirit rivera) rivera) 00:00: - [facility] Vitamin B12 Vitamin B12 2-0 No 1000ug Common (Cyanocobal (Cyanocobal 9-14 S pirit rivera) rivera) 00:00: - [facility] Vitamin B12 Vitamin B12 2021-0 No 1000ug Common (Cyanocobal (Cyanocobal 9-14 S pirit rivera) rivera) 00:00: - [facility] Cyanocobala Cyanocobala 2021-0 No 1000ug Common min min 9-14 Spirit 00:00: - [facility] Vitamin B12 Vitamin B12 2021-0 No 1000ug Common (Cyanocobal (Cyanocobal 8-30 S pirit rivera) rivera) 00:00: - [facility] Vitamin B12 Vitamin B12 2021-0 No 1000ug Common (Cyanocobal (Cyanocobal 8-30 S pirit rivera) rivera) 00:00: - [facility] Vitamin B12 Vitamin B12 2-0 No 1000ug Common (Cyanocobal (Cyanocobal 8-30 S pirit rivrea) rivera) 00:00: - [facility] Vitamin B12 Vitamin B12 2-0 No 1000ug Common (Cyanocobal (Cyanocobal 8-30 S pirit rivera) rivera) 00:00: - [facility] Vitamin B12 Vitamin B12 2-0 No 1000ug Common (Cyanocobal (Cyanocobal 8-30 S pirit rivera) rivera) 00:00: - [facility] Vitamin B12 Vitamin B12 2-0 No 1000ug Common (Cyanocobal (Cyanocobal 8-30 S pirit rivera) rivera) 00:00: - [facility] Vitamin B12 Vitamin B12 2022-0 No 1000ug Common (Cyanocobal (Cyanocobal 8-30 S pirit rivera) rivera) 00:00: - [facility] Vitamin B12 Vitamin B12 2021-0 No 1000ug Common (Cyanocobal (Cyanocobal 8-30 S pirit rivera) rivera) 00:00: - [facility] Vitamin B12 Vitamin B12 2021-0 No 1000ug Common (Cyanocobal (Cyanocobal 8-30 S pirit rivera) rivera) 00:00: - [facility] Vitamin B12 Vitamin B12 2021-0 No 1000ug Common (Cyanocobal (Cyanocobal 8-30 S pirit rivera) rivera) 00:00: - [facility] Vitamin B12 Vitamin B12 2021-0 No 1000ug Common (Cyanocobal (Cyanocobal 8-30 S pirit rivera) rivera) 00:00: - [facility] Vitamin B12 Vitamin B12 2021-0 No 1000ug Common (Cyanocobal (Cyanocobal 8-30 S pirit rivera) rivera) 00:00: - [facility] Vitamin B12 Vitamin B12 2021-0 No 1000ug Common (Cyanocobal (Cyanocobal 8-30 S pirit rivera) rivera) 00:00: - [facility] Vitamin B12 Vitamin B12 2021-0 No 1000ug Common (Cyanocobal (Cyanocobal 8-30 S pirit rivera) rivera) 00:00: - [facility] Cyanocobala Cyanocobala 2021-0 No 1000ug Common min min 8-30 Spirit 00:00: - [facility] Vitamin B12 Vitamin B12 2-0 No 1000ug Common (Cyanocobal (Cyanocobal 8-15 S pirit rivera) rivera) 00:00: - [facility] Vitamin B12 Vitamin B12 2-0 No 1000ug Common (Cyanocobal (Cyanocobal 8-15 S pirit rivera) rivera) 00:00: - [facility] Vitamin B12 Vitamin B12 2-0 No 1000ug Common (Cyanocobal (Cyanocobal 8-15 S pirit rivera) rivera) 00:00: - [facility] Vitamin B12 Vitamin B12 2-0 No 1000ug Common (Cyanocobal (Cyanocobal 8-15 S pirit rivera) rivera) 00:00: - [facility] Vitamin B12 Vitamin B12 2022-0 No 1000ug Common (Cyanocobal (Cyanocobal 8-15 S pirit rivera) rivera) 00:00: - [facility] Vitamin B12 Vitamin B12 2021-0 No 1000ug Common (Cyanocobal (Cyanocobal 8-15 S pirit rivera) rivera) 00:00: - [facility] Vitamin B12 Vitamin B12 2-0 No 1000ug Common (Cyanocobal (Cyanocobal 8-15 S pirit rivera) rivera) 00:00: - [facility] Vitamin B12 Vitamin B12 2021-0 No 1000ug Common (Cyanocobal (Cyanocobal 8-15 S pirit rivera) rivera) 00:00: - [facility] Vitamin B12 Vitamin B12 2021-0 No 1000ug Common (Cyanocobal (Cyanocobal 8-15 S pirit rivera) rivera) 00:00: - [facility] Vitamin B12 Vitamin B12 2021-0 No 1000ug Common (Cyanocobal (Cyanocobal 8-15 S pirit rivera) rivera) 00:00: - [facility] Vitamin B12 Vitamin B12 2021-0 No 1000ug Common (Cyanocobal (Cyanocobal 8-15 S pirit rivera) rivera) 00:00: - [facility] Vitamin B12 Vitamin B12 2021-0 No 1000ug Common (Cyanocobal (Cyanocobal 8-15 S pirit rivera) rivera) 00:00: - [facility] Vitamin B12 Vitamin B12 2021-0 No 1000ug Common (Cyanocobal (Cyanocobal 8-15 S pirit rivera) rivera) 00:00: - [facility] Vitamin B12 Vitamin B12 2-0 No 1000ug Common (Cyanocobal (Cyanocobal 8-15 S pirit rivera) rivera) 00:00: - [facility] Cyanocobala Cyanocobala 2021-0 No 1000ug Common min min 8-15 Spirit 00:00: - [facility] Vitamin B12 Vitamin B12 2-0 No 1000ug Common (Cyanocobal (Cyanocobal 8-01 S pirit rivera) rivera) 00:00: - [facility] Vitamin B12 Vitamin B12 2022-0 No 1000ug Common (Cyanocobal (Cyanocobal 8-01 S pirit rivera) rivera) 00:00: - [facility] Vitamin B12 Vitamin B12 2-0 No 1000ug Common (Cyanocobal (Cyanocobal 8-01 S pirit rivera) rivera) 00:00: - [facility] Vitamin B12 Vitamin B12 2022-0 No 1000ug Common (Cyanocobal (Cyanocobal 8-01 S pirit rivera) rivera) 00:00: - [facility] Vitamin B12 Vitamin B12 2022-0 No 1000ug Common (Cyanocobal (Cyanocobal 8-01 S pirit rivera) rivera) 00:00: - [facility] Vitamin B12 Vitamin B12 2-0 No 1000ug Common (Cyanocobal (Cyanocobal 8-01 S pirit rivera) rivera) 00:00: - [facility] Vitamin B12 Vitamin B12 2-0 No 1000ug Common (Cyanocobal (Cyanocobal 8-01 S pirit rivera) rivera) 00:00: - [facility] Vitamin B12 Vitamin B12 2-0 No 1000ug Common (Cyanocobal (Cyanocobal 8-01 S pirit rivera) rivera) 00:00: - [facility] Vitamin B12 Vitamin B12 2-0 No 1000ug Common (Cyanocobal (Cyanocobal 8-01 S pirit rivera) rivera) 00:00: - [facility] Vitamin B12 Vitamin B12 2-0 No 1000ug Common (Cyanocobal (Cyanocobal 8-01 S pirit rivera) rivera) 00:00: - [facility] Vitamin B12 Vitamin B12 2022-0 No 1000ug Common (Cyanocobal (Cyanocobal 8-01 S pirit rivera) rivera) 00:00: - [facility] Vitamin B12 Vitamin B12 2022-0 No 1000ug Common (Cyanocobal (Cyanocobal 8-01 S pirit rivera) rivera) 00:00: - [facility] Vitamin B12 Vitamin B12 2022-0 No 1000ug Common (Cyanocobal (Cyanocobal 8-01 S pirit rivera) rivera) 00:00: - [facility] Vitamin B12 Vitamin B12 2022-0 No 1000ug Common (Cyanocobal (Cyanocobal 8-01 S pirit rivera) rivera) 00:00: - [facility] Vitamin B12 Vitamin B12 2-0 No 1000ug Common (Cyanocobal (Cyanocobal 8-01 S pirit rivera) rivera) 00:00: - [facility] Vitamin B12 Vitamin B12 2-0 No 1000ug Common (Cyanocobal (Cyanocobal 8-01 S pirit rivera) rivera) 00:00: - [facility] Cyanocobala Cyanocobala 2021-0 No 1000ug Common min min 11-28 Spirit 00:00: - [facility] Vitamin B12 Vitamin B12 2021-0 No 1000ug Common (Cyanocobal (Cyanocobal 6-09 S pirit rivera) rivera) 00:00: - [facility] Vitamin B12 Vitamin B12 2-0 No 1000ug Common (Cyanocobal (Cyanocobal 6-09 S pirit rivera) rivera) 00:00: - [facility] Vitamin B12 Vitamin B12 2-0 No 1000ug Common (Cyanocobal (Cyanocobal 6-09 S pirit rivera) rivera) 00:00: - [facility] Vitamin B12 Vitamin B12 2-0 No 1000ug Common (Cyanocobal (Cyanocobal 6-09 S pirit rivera) rivera) 00:00: - [facility] Vitamin B12 Vitamin B12 2-0 No 1000ug Common (Cyanocobal (Cyanocobal 6-09 S pirit rivera) rivera) 00:00: - [facility] Vitamin B12 Vitamin B12 2022-0 No 1000ug Common (Cyanocobal (Cyanocobal 6-09 S pirit rivera) rivera) 00:00: - [facility] Vitamin B12 Vitamin B12 2022-0 No 1000ug Common (Cyanocobal (Cyanocobal 6-09 S pirit rivera) rivera) 00:00: - [facility] Vitamin B12 Vitamin B12 2022-0 No 1000ug Common (Cyanocobal (Cyanocobal 6-09 S pirit rivera) rivera) 00:00: - [facility] Vitamin B12 Vitamin B12 2022-0 No 1000ug Common (Cyanocobal (Cyanocobal 6-09 S pirit rivera) rivera) 00:00: - [facility] Vitamin B12 Vitamin B12 2-0 No 1000ug Common (Cyanocobal (Cyanocobal 6-09 S pirit rivera) rivera) 00:00: - [facility] Vitamin B12 Vitamin B12 2022-0 No 1000ug Common (Cyanocobal (Cyanocobal 6-09 S pirit rivera) rivera) 00:00: - [facility] Vitamin B12 Vitamin B12 2022-0 No 1000ug Common (Cyanocobal (Cyanocobal 6-09 S pirit rivera) rivera) 00:00: - [facility] Vitamin B12 Vitamin B12 2-0 No 1000ug Common (Cyanocobal (Cyanocobal 6-09 S pirit rivera) rivera) 00:00: - [facility] Vitamin B12 Vitamin B12 2022-0 No 1000ug Common (Cyanocobal (Cyanocobal 6-09 S pirit rivera) rivera) 00:00: - [facility] Vitamin B12 Vitamin B12 2-0 No 1000ug Common (Cyanocobal (Cyanocobal 6-09 S pirit rivera) rivera) 00:00: - [facility] Vitamin B12 Vitamin B12 2-0 No 1000ug Common (Cyanocobal (Cyanocobal 6-09 S pirit rivera) rivera) 00:00: - [facility] Vitamin B12 Vitamin B12 2-0 No 1000ug Common (Cyanocobal (Cyanocobal 6-09 S pirit rivera) rivera) 00:00: - [facility] Vitamin B12 Vitamin B12 2022-0 No 1000ug Common (Cyanocobal (Cyanocobal 6-09 S pirit rivera) rivera) 00:00: - [facility] Vitamin B12 Vitamin B12 2022-0 No 1000ug Common (Cyanocobal (Cyanocobal 6-09 S pirit rivera) rivera) 00:00: - [facility] Ondansetron Ondansetron 2021-0 No 1{table Ondansetro 4 MG 4 MG 6__ n 4 MG 00:00: e_tongu 00 e_and_a [...] 6-01 t n 4 MG 00:00: e_tongu e_and_a llow_to _dissol ve} Ondansetron Ondansetron 2021-0 No 1{table Ondansetro 4 MG 4 MG 6-01 t n 4 MG 00:00: e_tongu e_and_a llow_to _dissol ve} Ondansetron Ondansetron 2021-0 No 1{table Ondansetro 4 MG 4 MG 6-01 t n 4 MG 00:00: e_tongu e_and_a llow_to _dissol ve} Ondansetron Ondansetron 2021-0 No 1{table Ondansetro 4 MG 4 MG 6-01 t n 4 MG 00:00: e_tongu e_and_a llow_to _dissol ve} Ondansetron Ondansetron 2021-0 No 1{table Ondansetro 4 MG 4 MG 6-01 t_on n 4 MG 00:00: e_tongu 00 e_and_a llow_to _dissol ve} Ondansetron Ondansetron 2021-0 No 1{table Ondansetro 4 MG 4 MG 6-01 t_ n 4 MG 00:00: e_tongu e_and_a llow_to _dissol ve} Ondansetron Ondansetron 2021-0 [...] by mouth [facility] tablet 13:08: nightly. [address] celecoxib Yes 200mg QD Take [address] [facility] (CeleBREX) 5-28 mg by [facility] 200 MG 13:08: mouth Medical capsule 51 daily. [place] HYDROcodone 0 Yes 1{tbl} Take [address] [facility] -acetaminop 5-28 tablet by Chanel es [facility] (NORCO 13:08: mouth Medica l 7.5-325) 51 every 12 Center 7.5-325 mg (twelve) per tablet hours as needed for Pain. rOPINIRole Yes 4mg QD Take [address] [facility] [address] [facility] (REQUIP) 4 5-28 by mouth [facility] tablet 13:08: nightly. [address] celecoxib 0 Yes 200mg QD Take [address] [facility] (CeleBREX) 5-28 mg by [facility] 200 MG 13:08: mouth Medical capsule 51 daily. [place] HYDROcodone 0 Yes 1{tbl} Take [address] -acetaminop 5-28 tablet by [facility]el es [facility] (NORCO 13:08: mouth Medica l 7.5-325) 51 every 12 Center 7.5-325 mg (twelve) per tablet hours as needed for Pain. sulfamethox 0 2021- No 160mg{t Q.5D Take [address] [facility] azole-trime 5-28 06-04 rimetho tablet Sofia kes thoprim 00:00: 23:59 prim} (160 mg of Me dical (BACTRIM 00 :00 trimethopr Cente r DS) 800-160 im total) mg per by mouth 2 tablet (two) times daily for 7 days. nitrofurant 0 2022- No bacterial 100mg Q.5D Take [address] [facility] oin 5-25 05-25 urinary mg by [facility] (MACRODANTI 23:00: 00:00 tract mouth 2 M edical N) 100 MG 19 :00 infection (two) Cent er capsule times daily. Vitamin B12 Vitamin B12 0 No 1000ug Common (Cyanocobal (Cyanocobal 5-19 S pirit rivera) rivera) 00:00: - [facility] Vitamin B12 Vitamin B12 2021-0 No 1000ug Common (Cyanocobal (Cyanocobal 5-19 S pirit rivera) rivera) 00:00: - [facility] Vitamin B12 Vitamin B12 2021-0 No 1000ug Common (Cyanocobal (Cyanocobal 5-19 S pirit rivera) rivera) 00:00: - [facility] Vitamin B12 Vitamin B12 2021-0 No 1000ug Common (Cyanocobal (Cyanocobal 5-19 S pirit rivera) rivera) 00:00: - [facility] Vitamin B12 Vitamin B12 2021-0 No 1000ug Common (Cyanocobal (Cyanocobal 5-19 S pirit rivera) rivera) 00:00: - [facility] Vitamin B12 Vitamin B12 2021-0 No 1000ug Common (Cyanocobal (Cyanocobal 5-19 S pirit rivera) rivera) 00:00: - [facility] Vitamin B12 Vitamin B12 2021-0 No 1000ug Common (Cyanocobal (Cyanocobal 5-19 S pirit rivera) rivera) 00:00: - [facility] Vitamin B12 Vitamin B12 2-0 No 1000ug Common (Cyanocobal (Cyanocobal 5-19 S pirit rivera) rivera) 00:00: - [facility] Vitamin B12 Vitamin B12 2-0 No 1000ug Common (Cyanocobal (Cyanocobal 5-19 S pirit rivera) rivera) 00:00: - [facility] Vitamin B12 Vitamin B12 2-0 No 1000ug Common (Cyanocobal (Cyanocobal 5-19 S pirit rivera) rivera) 00:00: - [facility] Vitamin B12 Vitamin B12 2-0 No 1000ug Common (Cyanocobal (Cyanocobal 5-19 S pirit rivera) rivera) 00:00: - [facility] Vitamin B12 Vitamin B12 2-0 No 1000ug Common (Cyanocobal (Cyanocobal 5-19 S pirit rivera) rivera) 00:00: - [facility] Vitamin B12 Vitamin B12 2-0 No 1000ug Common (Cyanocobal (Cyanocobal 5-19 S pirit rivera) rivera) 00:00: - [facility] Vitamin B12 Vitamin B12 2-0 No 1000ug Common (Cyanocobal (Cyanocobal 5-19 S pirit rivera) rivera) 00:00: - [facility] Vitamin B12 Vitamin B12 2-0 No 1000ug Common (Cyanocobal (Cyanocobal 5-19 S pirit rivera) rivera) 00:00: - [facility] Vitamin B12 Vitamin B12 2-0 No 1000ug Common (Cyanocobal (Cyanocobal 5-19 S pirit rivera) rivera) 00:00: - [facility] Vitamin B12 Vitamin B12 2-0 No 1000ug Common (Cyanocobal (Cyanocobal 5-19 S pirit rivera) rivera) 00:00: - [facility] Vitamin B12 Vitamin B12 2-0 No 1000ug Common (Cyanocobal (Cyanocobal 5-19 S pirit rivera) rivera) 00:00: - [facility] Vitamin B12 Vitamin B12 2-0 No 1000ug Common (Cyanocobal (Cyanocobal 5-19 S pirit rivera) rivera) 00:00: - [facility] Vitamin B12 Vitamin B12 2-0 No 1000ug Common (Cyanocobal (Cyanocobal 5-19 S pirit rivera) rivera) 00:00: - [facility] Vitamin B12 Vitamin B12 2022-0 No 1000ug Common (Cyanocobal (Cyanocobal 5-19 S pirit rivera) rivera) 00:00: - [facility] Vitamin B12 Vitamin B12 2-0 No 1000ug Common (Cyanocobal (Cyanocobal 5-19 S pirit rivera) rivera) 00:00: - [facility] Vitamin B12 Vitamin B12 2021-0 No 1000ug Common (Cyanocobal (Cyanocobal 5-19 S pirit rivera) rivera) 00:00: - [facility] Vitamin B12 Vitamin B12 2-0 No 1000ug Common (Cyanocobal (Cyanocobal 5-19 S pirit rivera) rivera) 00:00: - [facility] Macrobid Macrobid 2021-0 2021- No BID Macrobid 100 MG 100 MG 09-15 100 MG 00:00: 00:00 00 :00 Pyridium Pyridium 2021-0 2022- No 1{table BID Pyridium 200 MG 200 MG 09-15 t_after 200 MG 00:00: 00:00 _meals} 00 :00 Vitamin B12 Vitamin B12 2021-0 No 1000ug Common (Cyanocobal (Cyanocobal 5-04 S pirit rivera) rivera) 00:00: - [facility] Vitamin B12 Vitamin B12 2021-0 No 1000ug Common (Cyanocobal (Cyanocobal 5-04 S pirit rivera) rivera) 00:00: - [facility] Vitamin B12 Vitamin B12 2021-0 No 1000ug Common (Cyanocobal (Cyanocobal 5-04 S pirit rivera) rivera) 00:00: - [facility] Vitamin B12 Vitamin B12 2-0 No 1000ug Common (Cyanocobal (Cyanocobal 5-04 S pirit rivera) rivera) 00:00: - [facility] Vitamin B12 Vitamin B12 2-0 No 1000ug Common (Cyanocobal (Cyanocobal 5-04 S pirit rivera) rivera) 00:00: - [facility] Vitamin B12 Vitamin B12 2022-0 No 1000ug Common (Cyanocobal (Cyanocobal 5-04 S pirit rivera) rivera) 00:00: - [facility] Vitamin B12 Vitamin B12 2022-0 No 1000ug Common (Cyanocobal (Cyanocobal 5-04 S pirit rivera) rivera) 00:00: - [facility] Vitamin B12 Vitamin B12 2-0 No 1000ug Common (Cyanocobal (Cyanocobal 5-04 S pirit rivera) rivera) 00:00: - [facility] Vitamin B12 Vitamin B12 2021-0 No 1000ug Common (Cyanocobal (Cyanocobal 5-04 S pirit rivera) rivera) 00:00: - [facility] Vitamin B12 Vitamin B12 2-0 No 1000ug Common (Cyanocobal (Cyanocobal 5-04 S pirit rivera) rivera) 00:00: - [facility] Vitamin B12 Vitamin B12 2021-0 No 1000ug Common (Cyanocobal (Cyanocobal 5-04 S pirit rivera) rivera) 00:00: - [facility] Vitamin B12 Vitamin B12 2021-0 No 1000ug Common (Cyanocobal (Cyanocobal 5-04 S pirit rivera) rivera) 00:00: - [facility] Vitamin B12 Vitamin B12 2021-0 No 1000ug Common (Cyanocobal (Cyanocobal 5-04 S pirit rivera) rivera) 00:00: - [facility] Vitamin B12 Vitamin B12 2021-0 No 1000ug Common (Cyanocobal (Cyanocobal 5-04 S pirit rivera) rivera) 00:00: - [facility] Vitamin B12 Vitamin B12 2021-0 No 1000ug Common (Cyanocobal (Cyanocobal 5-04 S pirit rivera) rivera) 00:00: - [facility] Vitamin B12 Vitamin B12 2-0 No 1000ug Common (Cyanocobal (Cyanocobal 5-04 S pirit rivera) rivera) 00:00: - [facility] Vitamin B12 Vitamin B12 2-0 No 1000ug Common (Cyanocobal (Cyanocobal 5-04 S pirit rivera) rivera) 00:00: - [facility] Vitamin B12 Vitamin B12 2-0 No 1000ug Common (Cyanocobal (Cyanocobal 5-04 S pirit rivera) rivera) 00:00: - [facility] Vitamin B12 Vitamin B12 2022-0 No 1000ug Common (Cyanocobal (Cyanocobal 5-04 S pirit rivera) rivera) 00:00: - [facility] Vitamin B12 Vitamin B12 2-0 No 1000ug Common (Cyanocobal (Cyanocobal 5-04 S pirit rivera) rivera) 00:00: - [facility] Vitamin B12 Vitamin B12 2-0 No 1000ug Common (Cyanocobal (Cyanocobal 5-04 S pirit rivera) rivera) 00:00: - [facility] Vitamin B12 Vitamin B12 2022-0 No 1000ug Common (Cyanocobal (Cyanocobal 5-04 S pirit rivera) rivera) 00:00: - [facility] Vitamin B12 Vitamin B12 2-0 No 1000ug Common (Cyanocobal (Cyanocobal 5-04 S pirit rivera) rivera) 00:00: - [facility] Vitamin B12 Vitamin B12 2-0 No 1000ug Common (Cyanocobal (Cyanocobal 5-04 S pirit rivera) rivera) 00:00: - [facility] Vitamin B12 Vitamin B12 2-0 No 1000ug Common (Cyanocobal (Cyanocobal 5-04 S pirit rivera) rivera) 00:00: - [facility] Vitamin B12 Vitamin B12 2-0 No 1000ug Common (Cyanocobal (Cyanocobal 4-21 S pirit rivera) rivera) 00:00: - [facility] Vitamin B12 Vitamin B12 2-0 No 1000ug Common (Cyanocobal (Cyanocobal 4-21 S pirit rivera) rivera) 00:00: - [facility] Vitamin B12 Vitamin B12 2-0 No 1000ug Common (Cyanocobal (Cyanocobal 4-21 S pirit rivera) rivera) 00:00: - [facility] Vitamin B12 Vitamin B12 2022-0 No 1000ug Common (Cyanocobal (Cyanocobal 4-21 S pirit rivera) rivera) 00:00: - [facility] Vitamin B12 Vitamin B12 2022-0 No 1000ug Common (Cyanocobal (Cyanocobal 4-21 S pirit rivera) rivera) 00:00: - [facility] Vitamin B12 Vitamin B12 2022-0 No 1000ug Common (Cyanocobal (Cyanocobal 4-21 S pirit rivera) rivera) 00:00: - [facility] Vitamin B12 Vitamin B12 2022-0 No 1000ug Common (Cyanocobal (Cyanocobal 4-21 S pirit rivera) rivera) 00:00: - [facility] Vitamin B12 Vitamin B12 2022-0 No 1000ug Common (Cyanocobal (Cyanocobal 4-21 S pirit rivera) rivera) 00:00: - [facility] Vitamin B12 Vitamin B12 2022-0 No 1000ug Common (Cyanocobal (Cyanocobal 4-21 S pirit rivera) rivera) 00:00: - [facility] Vitamin B12 Vitamin B12 2022-0 No 1000ug Common (Cyanocobal (Cyanocobal 4-21 S pirit rivera) rivera) 00:00: - [facility] Vitamin B12 Vitamin B12 2-0 No 1000ug Common (Cyanocobal (Cyanocobal 4-21 S pirit rivera) rivera) 00:00: - [facility] Vitamin B12 Vitamin B12 2022-0 No 1000ug Common (Cyanocobal (Cyanocobal 4-21 S pirit rivera) rivera) 00:00: - [facility] Vitamin B12 Vitamin B12 2-0 No 1000ug Common (Cyanocobal (Cyanocobal 4-21 S pirit rivera) rivera) 00:00: - [facility] Vitamin B12 Vitamin B12 2-0 No 1000ug Common (Cyanocobal (Cyanocobal 4-21 S pirit rivera) rivera) 00:00: - [facility] Vitamin B12 Vitamin B12 2022-0 No 1000ug Common (Cyanocobal (Cyanocobal 4-21 S pirit rivera) rivera) 00:00: - [facility] Vitamin B12 Vitamin B12 2022-0 No 1000ug Common (Cyanocobal (Cyanocobal 4-21 S pirit rivera) rivera) 00:00: - [facility] Vitamin B12 Vitamin B12 2022-0 No 1000ug Common (Cyanocobal (Cyanocobal 4-21 S pirit rivera) rivera) 00:00: - [facility] Vitamin B12 Vitamin B12 2022-0 No 1000ug Common (Cyanocobal (Cyanocobal 4-21 S pirit rivera) rivera) 00:00: - [facility] Vitamin B12 Vitamin B12 2022-0 No 1000ug Common (Cyanocobal (Cyanocobal 4-21 S pirit rivera) rivera) 00:00: - [facility] Vitamin B12 Vitamin B12 2-0 No 1000ug Common (Cyanocobal (Cyanocobal 4-21 S pirit rivera) rivera) 00:00: - [facility] Vitamin B12 Vitamin B12 2022-0 No 1000ug Common (Cyanocobal (Cyanocobal 4-21 S pirit rivera) rivera) 00:00: - [facility] Vitamin B12 Vitamin B12 2022-0 No 1000ug Common (Cyanocobal (Cyanocobal 4-21 S pirit rivera) rivera) 00:00: - [facility] Vitamin B12 Vitamin B12 2-0 No 1000ug Common (Cyanocobal (Cyanocobal 4-21 S pirit rivera) rivera) 00:00: - [facility] Vitamin B12 Vitamin B12 2-0 No 1000ug Common (Cyanocobal (Cyanocobal 4-21 S pirit rivera) rivera) 00:00: - [facility] Vitamin B12 Vitamin B12 2-0 No 1000ug Common (Cyanocobal (Cyanocobal 4-21 S pirit rivera) rivera) 00:00: - [facility] Vitamin B12 Vitamin B12 2-0 No 1000ug Common (Cyanocobal (Cyanocobal 4-21 S pirit rivera) rivera) 00:00: - [facility] Vitamin B12 Vitamin B12 2-0 No 1000ug Common (Cyanocobal (Cyanocobal 4-07 S pirit rivera) rivera) 00:00: - [facility] Vitamin B12 Vitamin B12 2022-0 No 1000ug Common (Cyanocobal (Cyanocobal 4-07 S pirit rivera) rivera) 00:00: - [facility] Vitamin B12 Vitamin B12 2022-0 No 1000ug Common (Cyanocobal (Cyanocobal 4-07 S pirit rivera) rivera) 00:00: - [facility] Vitamin B12 Vitamin B12 2022-0 No 1000ug Common (Cyanocobal (Cyanocobal 4-07 S pirit rivera) rivera) 00:00: - [facility] Vitamin B12 Vitamin B12 2022-0 No 1000ug Common (Cyanocobal (Cyanocobal 4-07 S pirit rivera) rivera) 00:00: - [facility] Vitamin B12 Vitamin B12 2022-0 No 1000ug Common (Cyanocobal (Cyanocobal 4-07 S pirit rivera) rivera) 00:00: - [facility] Vitamin B12 Vitamin B12 2-0 No 1000ug Common (Cyanocobal (Cyanocobal 4-07 S pirit rivera) rivera) 00:00: - [facility] Vitamin B12 Vitamin B12 2-0 No 1000ug Common (Cyanocobal (Cyanocobal 4-07 S pirit rivera) rivera) 00:00: - [facility] Vitamin B12 Vitamin B12 2-0 No 1000ug Common (Cyanocobal (Cyanocobal 4-07 S pirit rivera) rivera) 00:00: - [facility] Vitamin B12 Vitamin B12 2-0 No 1000ug Common (Cyanocobal (Cyanocobal 4-07 S pirit rivera) rivera) 00:00: - [facility] Vitamin B12 Vitamin B12 2-0 No 1000ug Common (Cyanocobal (Cyanocobal 4-07 S pirit rivera) rivera) 00:00: - [facility] Vitamin B12 Vitamin B12 2-0 No 1000ug Common (Cyanocobal (Cyanocobal 4-07 S pirit rivera) rivera) 00:00: - [facility] Vitamin B12 Vitamin B12 2-0 No 1000ug Common (Cyanocobal (Cyanocobal 4-07 S pirit rivera) rivera) 00:00: - [facility] Vitamin B12 Vitamin B12 2022-0 No 1000ug Common (Cyanocobal (Cyanocobal 4-07 S pirit rivera) rivera) 00:00: - [facility] Vitamin B12 Vitamin B12 2022-0 No 1000ug Common (Cyanocobal (Cyanocobal 4-07 S pirit rivera) rivera) 00:00: - [facility] Vitamin B12 Vitamin B12 2022-0 No 1000ug Common (Cyanocobal (Cyanocobal 4-07 S pirit rivera) rivera) 00:00: - [facility] Vitamin B12 Vitamin B12 2022-0 No 1000ug Common (Cyanocobal (Cyanocobal 4-07 S pirit rivera) rivera) 00:00: - [facility] Vitamin B12 Vitamin B12 2022-0 No 1000ug Common (Cyanocobal (Cyanocobal 4-07 S pirit rivera) rivera) 00:00: - [facility] Vitamin B12 Vitamin B12 2022-0 No 1000ug Common (Cyanocobal (Cyanocobal 4-07 S pirit rivera) rivera) 00:00: - [facility] Vitamin B12 Vitamin B12 2-0 No 1000ug Common (Cyanocobal (Cyanocobal 4-07 S pirit rivera) rivera) 00:00: - [facility] Vitamin B12 Vitamin B12 2021-0 No 1000ug Common (Cyanocobal (Cyanocobal 4-07 S pirit rivera) rivera) 00:00: - [facility] Vitamin B12 Vitamin B12 2021-0 No 1000ug Common (Cyanocobal (Cyanocobal 4-07 S pirit rivera) rivera) 00:00: - [facility] Vitamin B12 Vitamin B12 2-0 No 1000ug Common (Cyanocobal (Cyanocobal 4-07 S pirit rivera) rivera) 00:00: - [facility] Vitamin B12 Vitamin B12 2-0 No 1000ug Common (Cyanocobal (Cyanocobal 4-07 S pirit rivera) rivera) 00:00: - [facility] Vitamin B12 Vitamin B12 2-0 No 1000ug Common (Cyanocobal (Cyanocobal 4-07 S pirit rivera) rivera) 00:00: - [facility] Vitamin B12 Vitamin B12 2022-0 No 1000ug Common (Cyanocobal (Cyanocobal 4-07 S pirit rivera) rivera) 00:00: - [facility] Vitamin B12 Vitamin B12 2022-0 No 1000ug Common (Cyanocobal (Cyanocobal 4-07 S pirit rivera) rivera) 00:00: - [facility] Vitamin B12 Vitamin B12 2022-0 No 1000ug Common (Cyanocobal (Cyanocobal 4-07 S pirit rivera) rivera) 00:00: - [facility] Vitamin B12 Vitamin B12 0 No 1000ug Common (Cyanocobal (Cyanocobal 4-07 S pirit rivera) rivera) 00:00: - [facility] Vitamin B12 Vitamin B12 2021-0 No 1000ug Common (Cyanocobal (Cyanocobal 4-07 S pirit rivera) rivera) 00:00: - [facility] ProAir HFA ProAir HFA 0 No 2{puffs ProAir HFA 108 (90 108 (90 3-24 _as_nee 108 (90 Base) Base) 00:00: ded} Base) MCG/ACT MCG/ACT 00 MCG/ACT Vitamin B12 Vitamin B12 0 No 1000ug Common (Cyanocobal (Cyanocobal 3-24 S pirit rivera) rivera) 00:00: - [facility] ProAir HFA ProAir HFA 0 No 2{puffs ProAir HFA 108 (90 108 (90 3-24 _as_nee 108 (90 Base) Base) 00:00: ded} Base) MCG/ACT MCG/ACT 00 MCG/ACT Vitamin B12 Vitamin B12 0 No 1000ug Common (Cyanocobal (Cyanocobal 3-24 S pirit rivera) rivera) 00:00: - [facility] ProAir HFA ProAir HFA 0 No 2{puffs ProAir HFA 108 (90 108 (90 3-24 _as_nee 108 (90 Base) Base) 00:00: ded} Base) MCG/ACT MCG/ACT 00 MCG/ACT Vitamin B12 Vitamin B12 0 No 1000ug Common (Cyanocobal (Cyanocobal 3-24 S pirit rivera) rivera) 00:00: - [facility] ProAir HFA ProAir HFA 0 No 2{puffs ProAir HFA 108 (90 108 (90 3-24 _as_nee 108 (90 Base) Base) 00:00: ded} Base) MCG/ACT MCG/ACT 00 MCG/ACT Vitamin B12 Vitamin B12 2021-0 No 1000ug Common (Cyanocobal (Cyanocobal 3-24 S pirit rivera) rivera) 00:00: - [facility] ProAir HFA ProAir HFA No 2{puffs ProAir HFA 108 (90 108 (90 3-24 _as_nee 108 (90 Base) Base) 00:00: ded} Base) MCG/ACT MCG/ACT 00 MCG/ACT Vitamin B12 Vitamin B12 No 1000ug Common (Cyanocobal (Cyanocobal 3-24 S pirit rivera) rivera) 00:00: - [facility] ProAir HFA ProAir HFA No 2{puffs ProAir HFA 108 (90 108 (90 3-24 _as_nee 108 (90 Base) Base) 00:00: ded} Base) MCG/ACT MCG/ACT 00 MCG/ACT Vitamin B12 Vitamin B12 No 1000ug Common (Cyanocobal (Cyanocobal 3-24 S pirit rivera) rivera) 00:00: - [facility] ProAir HFA ProAir HFA No 2{puffs ProAir HFA 108 (90 108 (90 3-24 _as_nee 108 (90 Base) Base) 00:00: ded} Base) MCG/ACT MCG/ACT 00 MCG/ACT ProAir HFA ProAir HFA No 2{puffs ProAir HFA 108 (90 108 (90 3-24 _as_nee 108 (90 Base) Base) 00:00: ded} Base) MCG/ACT MCG/ACT 00 MCG/ACT Vitamin B12 Vitamin B12 No 1000ug Common (Cyanocobal (Cyanocobal 3-24 S pirit rivera) rivera) 00:00: - [facility] ProAir HFA ProAir HFA No 2{puffs ProAir HFA 108 (90 108 (90 3-24 _as_nee 108 (90 Base) Base) 00:00: ded} Base) MCG/ACT MCG/ACT 00 MCG/ACT Vitamin B12 Vitamin B12 0 No 1000ug Common (Cyanocobal (Cyanocobal 3-24 S pirit rivera) rivera) 00:00: - [facility] ProAir HFA ProAir HFA No 2{puffs ProAir HFA 108 (90 108 (90 3-24 _as_nee 108 (90 Base) Base) 00:00: ded} Base) MCG/ACT MCG/ACT 00 MCG/ACT Vitamin B12 Vitamin B12 0 No 1000ug Common (Cyanocobal (Cyanocobal 3-24 S pirit rivera) rivera) 00:00: - [facility] ProAir HFA ProAir HFA 0 No 2{puffs ProAir HFA 108 (90 108 (90 3-24 _as_nee 108 (90 Base) Base) 00:00: ded} Base) MCG/ACT MCG/ACT 00 MCG/ACT Vitamin B12 Vitamin B12 0 No 1000ug Common (Cyanocobal (Cyanocobal 3-24 S pirit rivera) rivera) 00:00: - [facility] ProAir HFA ProAir HFA 0 No 2{puffs ProAir HFA 108 (90 108 (90 3-24 _as_nee 108 (90 Base) Base) 00:00: ded} Base) MCG/ACT MCG/ACT 00 MCG/ACT Vitamin B12 Vitamin B12 0 No 1000ug Common (Cyanocobal (Cyanocobal 3-24 S pirit rivera) rivera) 00:00: - [facility] ProAir HFA ProAir HFA 0 No 2{puffs ProAir HFA 108 (90 108 (90 3-24 _as_nee 108 (90 Base) Base) 00:00: ded} Base) MCG/ACT MCG/ACT 00 MCG/ACT Vitamin B12 Vitamin B12 0 No 1000ug Common (Cyanocobal (Cyanocobal 3-24 S pirit rivera) rivera) 00:00: - [facility] ProAir HFA ProAir HFA 0 No 2{puffs ProAir HFA 108 (90 108 (90 3-24 _as_nee 108 (90 Base) Base) 00:00: ded} Base) MCG/ACT MCG/ACT 00 MCG/ACT Vitamin B12 Vitamin B12 0 No 1000ug Common (Cyanocobal (Cyanocobal 3-24 S pirit rivera) rivera) 00:00: - [facility] ProAir HFA ProAir HFA 0 No 2{puffs ProAir HFA 108 (90 108 (90 3-24 _as_nee 108 (90 Base) Base) 00:00: ded} Base) MCG/ACT MCG/ACT 00 MCG/ACT Vitamin B12 Vitamin B12 2021-0 No 1000ug Common (Cyanocobal (Cyanocobal 3-24 S pirit rivera) rivera) 00:00: - [facility] Vitamin B12 Vitamin B12 2021-0 No 1000ug Common (Cyanocobal (Cyanocobal 3-24 S pirit rivera) rivera) 00:00: - [facility] ProAir HFA ProAir HFA 0 No 2{puffs ProAir HFA 108 (90 108 (90 3-24 _as_nee 108 (90 Base) Base) 00:00: ded} Base) MCG/ACT MCG/ACT 00 MCG/ACT Vitamin B12 Vitamin B12 0 No 1000ug Common (Cyanocobal (Cyanocobal 3-24 S pirit rivera) rivera) 00:00: - [facility] ProAir HFA ProAir HFA 0 No 2{puffs ProAir HFA 108 (90 108 (90 3-24 _as_nee 108 (90 Base) Base) 00:00: ded} Base) MCG/ACT MCG/ACT 00 MCG/ACT Vitamin B12 Vitamin B12 0 No 1000ug Common (Cyanocobal (Cyanocobal 3-24 S pirit rivera) rivera) 00:00: - [facility] ProAir HFA ProAir HFA 0 No 2{puffs ProAir HFA 108 (90 108 (90 3-24 _as_nee 108 (90 Base) Base) 00:00: ded} Base) MCG/ACT MCG/ACT 00 MCG/ACT Vitamin B12 Vitamin B12 2021-0 No 1000ug Common (Cyanocobal (Cyanocobal 3-24 S pirit rivera) rivera) 00:00: - [facility] ProAir HFA ProAir HFA 0 No 2{puffs ProAir HFA 108 (90 108 (90 3-24 _as_nee 108 (90 Base) Base) 00:00: ded} Base) MCG/ACT MCG/ACT 00 MCG/ACT Vitamin B12 Vitamin B12 0 No 1000ug Common (Cyanocobal (Cyanocobal 3-24 S pirit rivera) rivera) 00:00: - [facility] ProAir HFA ProAir HFA 0 No 2{puffs ProAir HFA 108 (90 108 (90 3-24 _as_nee 108 (90 Base) Base) 00:00: ded} Base) MCG/ACT MCG/ACT 00 MCG/ACT Vitamin B12 Vitamin B12 0 No 1000ug Common (Cyanocobal (Cyanocobal 3-24 S pirit rivera) rivera) 00:00: - [facility] ProAir HFA ProAir HFA 0 No 2{puffs ProAir HFA 108 (90 108 (90 3-24 _as_nee 108 (90 Base) Base) 00:00: ded} Base) MCG/ACT MCG/ACT 00 MCG/ACT Vitamin B12 Vitamin B12 0 No 1000ug Common (Cyanocobal (Cyanocobal 3-24 S pirit rivera) rivera) 00:00: - [facility] ProAir HFA ProAir HFA 0 No 2{puffs ProAir HFA 108 (90 108 (90 3-24 _as_nee 108 (90 Base) Base) 00:00: ded} Base) MCG/ACT MCG/ACT 00 MCG/ACT Vitamin B12 Vitamin B12 0 No 1000ug Common (Cyanocobal (Cyanocobal 3-24 S pirit rivera) rivera) 00:00: - [facility] ProAir HFA ProAir HFA 0 No 2{puffs ProAir HFA 108 (90 108 (90 3-24 _as_nee 108 (90 Base) Base) 00:00: ded} Base) MCG/ACT MCG/ACT 00 MCG/ACT Vitamin B12 Vitamin B12 0 No 1000ug Common (Cyanocobal (Cyanocobal 3-24 S pirit rivera) rivera) 00:00: - [facility] ProAir HFA ProAir HFA 0 No 2{puffs ProAir HFA 108 (90 108 (90 3-24 _as_nee 108 (90 Base) Base) 00:00: ded} Base) MCG/ACT MCG/ACT 00 MCG/ACT Vitamin B12 Vitamin B12 0 No 1000ug Common (Cyanocobal (Cyanocobal 3-24 S pirit rivera) rivera) 00:00: - [facility] ProAir HFA ProAir HFA 0 No 2{puffs ProAir HFA 108 (90 108 (90 3-24 _as_nee 108 (90 Base) Base) 00:00: ded} Base) MCG/ACT MCG/ACT 00 MCG/ACT Vitamin B12 Vitamin B12 0 No 1000ug Common (Cyanocobal (Cyanocobal 3-24 S pirit rivera) rivera) 00:00: - [facility] ProAir HFA ProAir HFA 0 No 2{puffs ProAir HFA 108 (90 108 (90 3-24 _as_nee 108 (90 Base) Base) 00:00: ded} Base) MCG/ACT MCG/ACT 00 MCG/ACT Vitamin B12 Vitamin B12 0 No 1000ug Common (Cyanocobal (Cyanocobal 3-24 S pirit rivera) rivera) 00:00: - [facility] ProAir HFA ProAir HFA 0 No 2{puffs ProAir HFA 108 (90 108 (90 3-24 _as_nee 108 (90 Base) Base) 00:00: ded} Base) MCG/ACT MCG/ACT 00 MCG/ACT Vitamin B12 Vitamin B12 0 No 1000ug Common (Cyanocobal (Cyanocobal 3-24 S pirit rivera) rivera) 00:00: - [facility] ProAir HFA ProAir HFA 0 No 2{puffs ProAir HFA 108 (90 108 (90 3-24 _as_nee 108 (90 Base) Base) 00:00: ded} Base) MCG/ACT MCG/ACT 00 MCG/ACT Vitamin B12 Vitamin B12 0 No 1000ug Common (Cyanocobal (Cyanocobal 3-24 S pirit rivera) rivera) 00:00: - [facility] ProAir HFA ProAir HFA 0 No 2{puffs ProAir HFA 108 (90 108 (90 3-24 _as_nee 108 (90 Base) Base) 00:00: ded} Base) MCG/ACT MCG/ACT 00 MCG/ACT Vitamin B12 Vitamin B12 2021-0 No 1000ug Common (Cyanocobal (Cyanocobal 3-24 S pirit rivera) rivera) 00:00: - [facility] ProAir HFA ProAir HFA 2021-0 No 2{puffs ProAir HFA 108 (90 108 (90 3-24 _as_nee 108 (90 Base) Base) 00:00: ded} Base) MCG/ACT MCG/ACT 00 MCG/ACT Vitamin B12 Vitamin B12 0 No 1000ug Common (Cyanocobal (Cyanocobal 3-24 S pirit rivera) rivera) 00:00: - [facility] ProAir HFA ProAir HFA 0 No 2{puffs ProAir HFA 108 (90 108 (90 3-24 _as_nee 108 (90 Base) Base) 00:00: ded} Base) MCG/ACT MCG/ACT 00 MCG/ACT Vitamin B12 Vitamin B12 0 No 1000ug Common (Cyanocobal (Cyanocobal 3-24 S pirit rivera) rivera) 00:00: - [facility] Medrol 4 MG Medrol 4 MG 2021-0 2021- No Medrol 4 3-24 03-30 MG 00:00: 00:00 00 :00 Azithromyci Azithromyci 2021-0 2- No QD Azithromyc n 250 MG n 250 MG 3-24 03-29 in 250 MG 00:00: 00:00 00 :00 Kenalog Kenalog 2021-0 No 40mg Common (Triamcinol (Triamcinol 3-16 S pirit one) one) 00:00: - [facility] Kenalog Kenalog 2021-0 No 40mg Common (Triamcinol (Triamcinol 3-16 S pirit one) one) 00:00: - [facility] Kenalog Kenalog 2021-0 No 40mg Common (Triamcinol (Triamcinol 3-16 S pirit one) one) 00:00: - [facility] Kenalog Kenalog 2021-0 No 40mg Common (Triamcinol (Triamcinol 3-16 S pirit one) one) 00:00: - [facility] Kenalog Kenalog 2021-0 No 40mg Common (Triamcinol (Triamcinol 3-16 S pirit one) one) 00:00: - [facility] Kenalog Kenalog 2021-0 No 40mg Common (Triamcinol (Triamcinol 3-16 S pirit one) one) 00:00: - [facility] Kenalog Kenalog 2021-0 No 40mg Common (Triamcinol (Triamcinol 3-16 S pirit one) one) 00:00: - [facility] Kenalog Kenalog 2021-0 No 40mg Common (Triamcinol (Triamcinol 3-16 S pirit one) one) 00:00: - [facility] Kenalog Kenalog 0 No 40mg Common (Triamcinol (Triamcinol 3-16 S pirit one) one) 00:00: - [facility] Kenalog Kenalog 2021-0 No 40mg Common (Triamcinol (Triamcinol 3-16 S pirit one) one) 00:00: - [facility] Kenalog Kenalog 2021-0 No 40mg Common (Triamcinol (Triamcinol 3-16 S pirit one) one) 00:00: - [facility] Kenalog Kenalog 2021-0 No 40mg Common (Triamcinol (Triamcinol 3-16 S pirit one) one) 00:00: - [facility] Kenalog Kenalog 2021-0 No 40mg Common (Triamcinol (Triamcinol 3-16 S pirit one) one) 00:00: - [facility] Kenalog Kenalog 2021-0 No 40mg Common (Triamcinol (Triamcinol 3-16 S pirit one) one) 00:00: - [facility] Kenalog Kenalog 2021-0 No 40mg Common (Triamcinol (Triamcinol 3-16 S pirit one) one) 00:00: - [facility] Kenalog Kenalog 2022-0 No 40mg Common (Triamcinol (Triamcinol 3-16 S pirit one) one) 00:00: - [facility] Kenalog Kenalog 2021-0 No 40mg Common (Triamcinol (Triamcinol 3-16 S pirit one) one) 00:00: - [facility] Kenalog Kenalog 0 No 40mg Common (Triamcinol (Triamcinol 3-16 S pirit one) one) 00:00: - [facility] Kenjama Kenalog 0 No 40mg Common (Triamcinol (Triamcinol 3-16 S pirit one) one) 00:00: - [facility] Xochitl Kenalog 0 No 40mg Common (Triamcinol (Triamcinol 3-16 S pirit one) one) 00:00: - [facility] Xochitl Kenalog 2021-0 No 40mg Common (Triamcinol (Triamcinol 3-16 S pirit one) one) 00:00: - [facility] Kenjama Kenalog 2021-0 No 40mg Common (Triamcinol (Triamcinol 3-16 S pirit one) one) 00:00: - [facility] Kenjama Kenalog 2021-0 No 40mg Common (Triamcinol (Triamcinol 3-16 S pirit one) one) 00:00: - [facility] Kenjama Kenalog 2021-0 No 40mg Common (Triamcinol (Triamcinol 3-16 S pirit one) one) 00:00: - [facility] Kenjama Kenalog 2021-0 No 40mg Common (Triamcinol (Triamcinol 3-16 S pirit one) one) 00:00: - [facility] Kenalog Kenalog 2021-0 No 40mg Common (Triamcinol (Triamcinol 3-16 S pirit one) one) 00:00: - [facility] Kenalog Kenalog 2021-0 No 40mg Common (Triamcinol (Triamcinol 3-16 S pirit one) one) 00:00: - [facility] Kenalog Kenalog 2021-0 No 40mg Common (Triamcinol (Triamcinol 3-16 S pirit one) one) 00:00: - [facility] Kenalog Kenalog 2021-0 No 40mg Common (Triamcinol (Triamcinol 3-16 S pirit one) one) 00:00: - [facility] Kenalog Kenalog 2021-0 No 40mg Common (Triamcinol (Triamcinol 3-16 S pirit one) one) 00:00: - [facility] Xochitl Kenalog 2021-0 No 40mg Common (Triamcinol (Triamcinol 3-16 S pirit one) one) 00:00: - [facility] Xochitl Kenalog 2021-0 No 40mg Common (Triamcinol (Triamcinol 3-16 S pirit one) one) 00:00: - [facility] Kenjama Kenalog 2021-0 No 40mg Common (Triamcinol (Triamcinol 3-16 S pirit one) one) 00:00: - [facility] Kenjama Kenalog 2021-0 No 40mg Common (Triamcinol (Triamcinol 3-16 S pirit one) one) 00:00: - [facility] Kenjama Kenalog 2021-0 No 40mg Common (Triamcinol (Triamcinol 3-16 S pirit one) one) 00:00: - [facility] Kenalog Kenalog 2021-0 No 40mg Common (Triamcinol (Triamcinol 3-16 S pirit one) one) 00:00: - [facility] Vitamin B12 Vitamin B12 0 No 1000ug Common (Cyanocobal (Cyanocobal 3-10 S pirit rivera) rivera) 00:00: - [facility] Vitamin B12 Vitamin B12 2021-0 No 1000ug Common (Cyanocobal (Cyanocobal 3-10 S pirit rivera) rivera) 00:00: - [facility] Vitamin B12 Vitamin B12 2-0 No 1000ug Common (Cyanocobal (Cyanocobal 3-10 S pirit rivera) rivera) 00:00: - [facility] Vitamin B12 Vitamin B12 2-0 No 1000ug Common (Cyanocobal (Cyanocobal 3-10 S pirit rivera) rivera) 00:00: - [facility] Vitamin B12 Vitamin B12 2021-0 No 1000ug Common (Cyanocobal (Cyanocobal 3-10 S pirit rivera) rivera) 00:00: - [facility] Vitamin B12 Vitamin B12 2021-0 No 1000ug Common (Cyanocobal (Cyanocobal 3-10 S pirit rivera) rivera) 00:00: - [facility] Vitamin B12 Vitamin B12 2021-0 No 1000ug Common (Cyanocobal (Cyanocobal 3-10 S pirit rivera) rivera) 00:00: - [facility] Vitamin B12 Vitamin B12 2021-0 No 1000ug Common (Cyanocobal (Cyanocobal 3-10 S pirit rivera) rivera) 00:00: - [facility] Vitamin B12 Vitamin B12 2021-0 No 1000ug Common (Cyanocobal (Cyanocobal 3-10 S pirit rivera) rivera) 00:00: - [facility] Vitamin B12 Vitamin B12 2021-0 No 1000ug Common (Cyanocobal (Cyanocobal 3-10 S pirit rivera) rivera) 00:00: - [facility] Vitamin B12 Vitamin B12 2021-0 No 1000ug Common (Cyanocobal (Cyanocobal 3-10 S pirit rivera) rivera) 00:00: - [facility] Vitamin B12 Vitamin B12 2-0 No 1000ug Common (Cyanocobal (Cyanocobal 3-10 S pirit rivera) rivera) 00:00: - [facility] Vitamin B12 Vitamin B12 2022-0 No 1000ug Common (Cyanocobal (Cyanocobal 3-10 S pirit rivera) rivera) 00:00: - [facility] Vitamin B12 Vitamin B12 2022-0 No 1000ug Common (Cyanocobal (Cyanocobal 3-10 S pirit rivera) rivera) 00:00: - [facility] Vitamin B12 Vitamin B12 2021-0 No 1000ug Common (Cyanocobal (Cyanocobal 3-10 S pirit rivera) rivera) 00:00: - [facility] Vitamin B12 Vitamin B12 2021-0 No 1000ug Common (Cyanocobal (Cyanocobal 3-10 S pirit rivera) rivera) 00:00: - [facility] Vitamin B12 Vitamin B12 2-0 No 1000ug Common (Cyanocobal (Cyanocobal 3-10 S pirit rivera) rivera) 00:00: - [facility] Vitamin B12 Vitamin B12 2021-0 No 1000ug Common (Cyanocobal (Cyanocobal 3-10 S pirit rivera) rivera) 00:00: - [facility] Vitamin B12 Vitamin B12 2021-0 No 1000ug Common (Cyanocobal (Cyanocobal 3-10 S pirit rivera) rivera) 00:00: - [facility] Vitamin B12 Vitamin B12 2021-0 No 1000ug Common (Cyanocobal (Cyanocobal 3-10 S pirit rivera) rivera) 00:00: - [facility] Vitamin B12 Vitamin B12 2-0 No 1000ug Common (Cyanocobal (Cyanocobal 3-10 S pirit rivera) rivera) 00:00: - [facility] Vitamin B12 Vitamin B12 2-0 No 1000ug Common (Cyanocobal (Cyanocobal 3-10 S pirit rivera) rivera) 00:00: - [facility] Vitamin B12 Vitamin B12 2-0 No 1000ug Common (Cyanocobal (Cyanocobal 3-10 S pirit rivera) rivera) 00:00: - [facility] Vitamin B12 Vitamin B12 2-0 No 1000ug Common (Cyanocobal (Cyanocobal 3-10 S pirit rivera) rivera) 00:00: - [facility] Vitamin B12 Vitamin B12 2-0 No 1000ug Common (Cyanocobal (Cyanocobal 3-10 S pirit rivera) rivera) 00:00: - [facility] Vitamin B12 Vitamin B12 2022-0 No 1000ug Common (Cyanocobal (Cyanocobal 3-10 S pirit rivera) rivera) 00:00: - [facility] Vitamin B12 Vitamin B12 2021-0 No 1000ug Common (Cyanocobal (Cyanocobal 3-10 S pirit rivera) rivera) 00:00: - [facility] Vitamin B12 Vitamin B12 2-0 No 1000ug Common (Cyanocobal (Cyanocobal 3-10 S pirit rivera) rivera) 00:00: - [facility] Vitamin B12 Vitamin B12 2021-0 No 1000ug Common (Cyanocobal (Cyanocobal 3-10 S pirit rivera) rivera) 00:00: - [facility] Vitamin B12 Vitamin B12 2021-0 No 1000ug Common (Cyanocobal (Cyanocobal 3-10 S pirit rivera) rivera) 00:00: - [facility] Vitamin B12 Vitamin B12 2021-0 No 1000ug Common (Cyanocobal (Cyanocobal 3-10 S pirit rivera) rivera) 00:00: - [facility] Vitamin B12 Vitamin B12 2021-0 No 1000ug Common (Cyanocobal (Cyanocobal 3-10 S pirit rivera) rivera) 00:00: - [facility] Vitamin B12 Vitamin B12 2021-0 No 1000ug Common (Cyanocobal (Cyanocobal 3-10 S pirit rivera) rivera) 00:00: - [facility] Vitamin B12 Vitamin B12 2-0 No 1000ug Common (Cyanocobal (Cyanocobal 3-10 S pirit rivera) rivera) 00:00: - [facility] Vitamin B12 Vitamin B12 2-0 No 1000ug Common (Cyanocobal (Cyanocobal 3-10 S pirit rivera) rivera) 00:00: - [facility] Vitamin B12 Vitamin B12 2-0 No 1000ug Common (Cyanocobal (Cyanocobal 3-10 S pirit rivera) rivera) 00:00: - [facility] Vitamin B12 Vitamin B12 2022-0 No 1000ug Common (Cyanocobal (Cyanocobal 3-10 S pirit rivera) rivera) 00:00: - [facility] Vitamin B12 Vitamin B12 2-0 No 1000ug Common (Cyanocobal (Cyanocobal 2-24 S pirit rivera) rivera) 00:00: - [facility] Vitamin B12 Vitamin B12 2-0 No 1000ug Common (Cyanocobal (Cyanocobal 2-24 S pirit rivera) rivera) 00:00: - [facility] Vitamin B12 Vitamin B12 2-0 No 1000ug Common (Cyanocobal (Cyanocobal 2-24 S pirit rivera) rivera) 00:00: - [facility] Vitamin B12 Vitamin B12 2-0 No 1000ug Common (Cyanocobal (Cyanocobal 2-24 S pirit rivera) rivera) 00:00: - [facility] Vitamin B12 Vitamin B12 2-0 No 1000ug Common (Cyanocobal (Cyanocobal 2-24 S pirit rivera) rivera) 00:00: - [facility] Vitamin B12 Vitamin B12 2-0 No 1000ug Common (Cyanocobal (Cyanocobal 2-24 S pirit rivera) rivera) 00:00: - [facility] Vitamin B12 Vitamin B12 2-0 No 1000ug Common (Cyanocobal (Cyanocobal 2-24 S pirit rivera) rivera) 00:00: - [facility] Vitamin B12 Vitamin B12 2-0 No 1000ug Common (Cyanocobal (Cyanocobal 2-24 S pirit rivera) rivera) 00:00: - [facility] Vitamin B12 Vitamin B12 2-0 No 1000ug Common (Cyanocobal (Cyanocobal 2-24 S pirit rivera) rivera) 00:00: - [facility] Vitamin B12 Vitamin B12 2-0 No 1000ug Common (Cyanocobal (Cyanocobal 2-24 S pirit rivera) rivera) 00:00: - [facility] Vitamin B12 Vitamin B12 2022-0 No 1000ug Common (Cyanocobal (Cyanocobal 2-24 S pirit rivera) rivera) 00:00: - [facility] Vitamin B12 Vitamin B12 2022-0 No 1000ug Common (Cyanocobal (Cyanocobal 2-24 S pirit rivera) rivera) 00:00: - [facility] Vitamin B12 Vitamin B12 2022-0 No 1000ug Common (Cyanocobal (Cyanocobal 2-24 S pirit rivera) rivera) 00:00: - [facility] Vitamin B12 Vitamin B12 2-0 No 1000ug Common (Cyanocobal (Cyanocobal 2-24 S pirit rivera) rivera) 00:00: - [facility] Vitamin B12 Vitamin B12 2-0 No 1000ug Common (Cyanocobal (Cyanocobal 2-24 S pirit rivera) rivera) 00:00: - [facility] Vitamin B12 Vitamin B12 2021-0 No 1000ug Common (Cyanocobal (Cyanocobal 2-24 S pirit rivera) rivera) 00:00: - [facility] Vitamin B12 Vitamin B12 2-0 No 1000ug Common (Cyanocobal (Cyanocobal 2-24 S pirit rivera) rivera) 00:00: - [facility] Vitamin B12 Vitamin B12 2-0 No 1000ug Common (Cyanocobal (Cyanocobal 2-24 S pirit rivera) rivera) 00:00: - [facility] Vitamin B12 Vitamin B12 2021-0 No 1000ug Common (Cyanocobal (Cyanocobal 2-24 S pirit rivera) rivera) 00:00: - [facility] Vitamin B12 Vitamin B12 2021-0 No 1000ug Common (Cyanocobal (Cyanocobal 2-24 S pirit rivera) rivera) 00:00: - [facility] Vitamin B12 Vitamin B12 2-0 No 1000ug Common (Cyanocobal (Cyanocobal 2-24 S pirit rivera) rivera) 00:00: - [facility] Vitamin B12 Vitamin B12 2-0 No 1000ug Common (Cyanocobal (Cyanocobal 2-24 S pirit rivera) rivera) 00:00: - [facility] Vitamin B12 Vitamin B12 2022-0 No 1000ug Common (Cyanocobal (Cyanocobal 2-24 S pirit rivera) rivera) 00:00: - [facility] Vitamin B12 Vitamin B12 2022-0 No 1000ug Common (Cyanocobal (Cyanocobal 2-24 S pirit rivera) rivera) 00:00: - [facility] Vitamin B12 Vitamin B12 2-0 No 1000ug Common (Cyanocobal (Cyanocobal 2-24 S pirit rivera) rivera) 00:00: - [facility] Vitamin B12 Vitamin B12 2021-0 No 1000ug Common (Cyanocobal (Cyanocobal 2-24 S pirit rivera) rivera) 00:00: - [facility] Vitamin B12 Vitamin B12 2-0 No 1000ug Common (Cyanocobal (Cyanocobal 2-24 S pirit rivera) rivera) 00:00: - [facility] Vitamin B12 Vitamin B12 2021-0 No 1000ug Common (Cyanocobal (Cyanocobal 2-24 S pirit rivera) rivera) 00:00: - [facility] Vitamin B12 Vitamin B12 2021-0 No 1000ug Common (Cyanocobal (Cyanocobal 2-24 S pirit rivera) rivera) 00:00: - [facility] Vitamin B12 Vitamin B12 2021-0 No 1000ug Common (Cyanocobal (Cyanocobal 2-24 S pirit rivera) rivera) 00:00: - [facility] Vitamin B12 Vitamin B12 2021-0 No 1000ug Common (Cyanocobal (Cyanocobal 2-24 S pirit rivera) rivera) 00:00: - [facility] Vitamin B12 Vitamin B12 2021-0 No 1000ug Common (Cyanocobal (Cyanocobal 2-24 S pirit rivera) rivera) 00:00: - [facility] Vitamin B12 Vitamin B12 2-0 No 1000ug Common (Cyanocobal (Cyanocobal 2-24 S pirit rivera) rivera) 00:00: - [facility] Vitamin B12 Vitamin B12 2-0 No 1000ug Common (Cyanocobal (Cyanocobal 2-24 S pirit rivera) rivera) 00:00: - [facility] Vitamin B12 Vitamin B12 2-0 No 1000ug Common (Cyanocobal (Cyanocobal 2-24 S pirit rivera) rivera) 00:00: - [facility] Vitamin B12 Vitamin B12 2022-0 No 1000ug Common (Cyanocobal (Cyanocobal 2-24 S pirit rivera) rivera) 00:00: - [facility] Vitamin B12 Vitamin B12 2-0 No 1000ug Common (Cyanocobal (Cyanocobal 2-24 S pirit rivera) rivera) 00:00: - [facility] Vitamin B12 Vitamin B12 No 1000ug Common (Cyanocobal (Cyanocobal 2-24 S pirit rivera) rivera) 00:00: - [facility] CeleBREX CeleBREX 0 2022- No 1{capsu QD CeleBREX 200 MG 200 MG 05-26 le_with 200 MG 00:00: 00:00 _food} 00 :00 CeleBREX CeleBREX 2022- No 1{capsu QD CeleBREX 200 MG 200 MG 05-26 le_with 200 MG 00:00: 00:00 _food} 00 :00 CeleBREX CeleBREX 2022- No 1{capsu QD CeleBREX 200 MG 200 MG 05-26 le_with 200 MG 00:00: 00:00 _food} 00 :00 CeleBREX CeleBREX 2022- No 1{capsu QD CeleBREX 200 MG 200 MG 05-26 le_with 200 MG 00:00: 00:00 _food} 00 :00 CeleBREX CeleBREX 2022- No 1{capsu QD CeleBREX 200 MG 200 MG 05-26 le_with 200 MG 00:00: 00:00 _food} 00 :00 CeleBREX CeleBREX 0 2022- No 1{capsu QD CeleBREX 200 MG 200 MG 05-26 le_with 200 MG 00:00: 00:00 _food} 00 :00 CeleBREX CeleBREX 0 2022- No 1{capsu QD CeleBREX 200 MG 200 MG 05-26 le_with 200 MG 00:00: 00:00 _food} 00 :00 CeleBREX CeleBREX 2022- No 1{capsu QD CeleBREX 200 MG 200 MG 05-26 le_with 200 MG 00:00: 00:00 _food} 00 :00 CeleBREX CeleBREX 0 2022- No 1{capsu QD CeleBREX 200 MG [...] pirit rivera) rivera) 00:00: - [facility] Vitamin B12 Vitamin B12 2021-0 No 1000ug Common (Cyanocobal (Cyanocobal 1-21 S pirit rivera) rivera) 00:00: - [facility] Vitamin B12 Vitamin B12 2021-0 No 1000ug Common (Cyanocobal (Cyanocobal 1-21 S pirit rivera) rivera) 00:00: - [facility] Vitamin B12 Vitamin B12 2-0 No 1000ug Common (Cyanocobal (Cyanocobal 1-21 S pirit rivera) rivera) 00:00: - [facility] Vitamin B12 Vitamin B12 2-0 No 1000ug Common (Cyanocobal (Cyanocobal 1-21 S pirit rivera) rivera) 00:00: - [facility] Vitamin B12 Vitamin B12 2-0 No 1000ug Common (Cyanocobal (Cyanocobal 1-21 S pirit rivera) rivera) 00:00: - [facility] Vitamin B12 Vitamin B12 2-0 No 1000ug Common (Cyanocobal (Cyanocobal 1-21 S pirit rivera) rivera) 00:00: - [facility] Vitamin B12 Vitamin B12 2-0 No 1000ug Common (Cyanocobal (Cyanocobal 1-21 S pirit rivera) rivera) 00:00: - [facility] Vitamin B12 Vitamin B12 2021-0 No 1000ug Common (Cyanocobal (Cyanocobal 1-21 S pirit rivera) rivera) 00:00: - [facility] Vitamin B12 Vitamin B12 2-0 No 1000ug Common (Cyanocobal (Cyanocobal 1-21 S pirit rivera) rivera) 00:00: - [facility] Vitamin B12 Vitamin B12 2-0 No 1000ug Common (Cyanocobal (Cyanocobal 1-21 S pirit rivera) rivera) 00:00: - [facility] Vitamin B12 Vitamin B12 2021-0 No 1000ug Common (Cyanocobal (Cyanocobal 1-21 S pirit rivera) rivera) 00:00: - [facility] Vitamin B12 Vitamin B12 2021-0 No 1000ug Common (Cyanocobal (Cyanocobal 1-21 S pirit rivera) rivera) 00:00: - [facility] Vitamin B12 Vitamin B12 2-0 No 1000ug Common (Cyanocobal (Cyanocobal 1-21 S pirit rivera) rivera) 00:00: - [facility] Vitamin B12 Vitamin B12 2-0 No 1000ug Common (Cyanocobal (Cyanocobal 1-21 S pirit rivera) rivera) 00:00: - [facility] Vitamin B12 Vitamin B12 2-0 No 1000ug Common (Cyanocobal (Cyanocobal 1-21 S pirit rivera) rivera) 00:00: - [facility] Vitamin B12 Vitamin B12 2022-0 No 1000ug Common (Cyanocobal (Cyanocobal 1-21 S pirit rivera) rivera) 00:00: - [facility] Vitamin B12 Vitamin B12 2022-0 No 1000ug Common (Cyanocobal (Cyanocobal 1-21 S pirit rivera) rivera) 00:00: - [facility] Vitamin B12 Vitamin B12 2022-0 No 1000ug Common (Cyanocobal (Cyanocobal 1-21 S pirit rivera) rivera) 00:00: - [facility] Vitamin B12 Vitamin B12 2022-0 No 1000ug Common (Cyanocobal (Cyanocobal 1-21 S pirit rivera) rivera) 00:00: - [facility] Vitamin B12 Vitamin B12 2-0 No 1000ug Common (Cyanocobal (Cyanocobal 1-21 S pirit rivera) rivera) 00:00: - [facility] Vitamin B12 Vitamin B12 2-0 No 1000ug Common (Cyanocobal (Cyanocobal 1-21 S pirit rivera) rivera) 00:00: - [facility] Vitamin B12 Vitamin B12 2022-0 No 1000ug Common (Cyanocobal (Cyanocobal 1-21 S pirit rivera) rivera) 00:00: - [facility] Vitamin B12 Vitamin B12 2-0 No 1000ug Common (Cyanocobal (Cyanocobal 1-21 S pirit rivera) rivera) 00:00: - [facility] Vitamin B12 Vitamin B12 2-0 No 1000ug Common (Cyanocobal (Cyanocobal 1-21 S pirit rivera) rivera) 00:00: - [facility] Vitamin B12 Vitamin B12 2-0 No 1000ug Common (Cyanocobal (Cyanocobal 1-21 S pirit rivear) rivera) 00:00: - [facility] Vitamin B12 Vitamin B12 2022-0 No 1000ug Common (Cyanocobal (Cyanocobal 1-21 S pirit rivera) rivera) 00:00: - [facility] Vitamin B12 Vitamin B12 2022-0 No 1000ug Common (Cyanocobal (Cyanocobal 1-21 S pirit rivera) rivera) 00:00: - [facility] Vitamin B12 Vitamin B12 2022-0 No 1000ug Common (Cyanocobal (Cyanocobal 1-21 S pirit rivera) rivera) 00:00: - [facility] Vitamin B12 Vitamin B12 2022-0 No 1000ug Common (Cyanocobal (Cyanocobal 1-21 S pirit rivera) rivera) 00:00: - [facility] Vitamin B12 Vitamin B12 2022-0 No 1000ug Common (Cyanocobal (Cyanocobal 1-21 S pirit rivera) rivera) 00:00: - [facility] Vitamin B12 Vitamin B12 2022-0 No 1000ug Common (Cyanocobal (Cyanocobal 1-21 S pirit rivera) rivera) 00:00: - [facility] Vitamin B12 Vitamin B12 2-0 No 1000ug Common (Cyanocobal (Cyanocobal 1-21 S pirit rivera) rivera) 00:00: - [facility] Vitamin B12 Vitamin B12 2-0 No 1000ug Common (Cyanocobal (Cyanocobal 1-21 S pirit rivera) rivera) 00:00: - [facility] Vitamin B12 Vitamin B12 2022-0 No 1000ug Common (Cyanocobal (Cyanocobal 1-21 S pirit rivera) rivera) 00:00: - [facility] Vitamin B12 Vitamin B12 2-0 No 1000ug Common (Cyanocobal (Cyanocobal 1-21 S pirit rivera) rivera) 00:00: - [facility] Vitamin B12 Vitamin B12 2-0 No 1000ug Common (Cyanocobal (Cyanocobal 1-21 S pirit rivera) rivera) 00:00: - [facility] Vitamin B12 Vitamin B12 2-0 No 1000ug Common (Cyanocobal (Cyanocobal 1-21 S pirit rivera) rivera) 00:00: - [facility] Vitamin B12 Vitamin B12 2022-0 No 1000ug Common (Cyanocobal (Cyanocobal 1-07 S pirit rivera) rivera) 00:00: - [facility] Vitamin B12 Vitamin B12 2022-0 No 1000ug Common (Cyanocobal (Cyanocobal 1-07 S pirit rivera) rivera) 00:00: - [facility] Vitamin B12 Vitamin B12 2022-0 No 1000ug Common (Cyanocobal (Cyanocobal 1-07 S pirit rivera) rivera) 00:00: - [facility] Vitamin B12 Vitamin B12 2022-0 No 1000ug Common (Cyanocobal (Cyanocobal 1-07 S pirit rivera) rivera) 00:00: - [facility] Vitamin B12 Vitamin B12 2022-0 No 1000ug Common (Cyanocobal (Cyanocobal 1-07 S pirit rivera) rivera) 00:00: - [facility] Vitamin B12 Vitamin B12 2022-0 No 1000ug Common (Cyanocobal (Cyanocobal 1-07 S pirit rivera) rivera) 00:00: - [facility] Vitamin B12 Vitamin B12 2022-0 No 1000ug Common (Cyanocobal (Cyanocobal 1-07 S pirit rivera) rivera) 00:00: - [facility] Vitamin B12 Vitamin B12 2022-0 No 1000ug Common (Cyanocobal (Cyanocobal 1-07 S pirit rivera) rivera) 00:00: - [facility] Vitamin B12 Vitamin B12 2022-0 No 1000ug Common (Cyanocobal (Cyanocobal 1-07 S pirit rivera) rivera) 00:00: - [facility] Vitamin B12 Vitamin B12 2022-0 No 1000ug Common (Cyanocobal (Cyanocobal 1-07 S pirit rivera) rivera) 00:00: - [facility] Vitamin B12 Vitamin B12 2022-0 No 1000ug Common (Cyanocobal (Cyanocobal 1-07 S pirit rivera) rivera) 00:00: - [facility] Vitamin B12 Vitamin B12 2022-0 No 1000ug Common (Cyanocobal (Cyanocobal 1-07 S pirit rivera) rivera) 00:00: - [facility] Vitamin B12 Vitamin B12 2022-0 No 1000ug Common (Cyanocobal (Cyanocobal 1-07 S pirit rivera) rivera) 00:00: - [facility] Vitamin B12 Vitamin B12 2022-0 No 1000ug Common (Cyanocobal (Cyanocobal 1-07 S pirit rivera) rivera) 00:00: - [facility] Vitamin B12 Vitamin B12 2022-0 No 1000ug Common (Cyanocobal (Cyanocobal 1-07 S pirit rivera) rivera) 00:00: - [facility] Vitamin B12 Vitamin B12 2022-0 No 1000ug Common (Cyanocobal (Cyanocobal 1-07 S pirit rivera) rivera) 00:00: - [facility] Vitamin B12 Vitamin B12 2022-0 No 1000ug Common (Cyanocobal (Cyanocobal 1-07 S pirit rivera) rivera) 00:00: - [facility] Vitamin B12 Vitamin B12 2022-0 No 1000ug Common (Cyanocobal (Cyanocobal 1-07 S pirit rivera) rivera) 00:00: - [facility] Vitamin B12 Vitamin B12 2022-0 No 1000ug Common (Cyanocobal (Cyanocobal 1-07 S pirit rivera) rivera) 00:00: - [facility] Vitamin B12 Vitamin B12 2-0 No 1000ug Common (Cyanocobal (Cyanocobal 1-07 S pirit rivera) rivera) 00:00: - [facility] Vitamin B12 Vitamin B12 2-0 No 1000ug Common (Cyanocobal (Cyanocobal 1-07 S pirit rivera) rivera) 00:00: - [facility] Vitamin B12 Vitamin B12 2-0 No 1000ug Common (Cyanocobal (Cyanocobal 1-07 S pirit rivera) rivera) 00:00: - [facility] Vitamin B12 Vitamin B12 2-0 No 1000ug Common (Cyanocobal (Cyanocobal 1-07 S pirit rivera) rivera) 00:00: - [facility] Vitamin B12 Vitamin B12 2022-0 No 1000ug Common (Cyanocobal (Cyanocobal 1-07 S pirit rivera) rivera) 00:00: - [facility] Vitamin B12 Vitamin B12 2022-0 No 1000ug Common (Cyanocobal (Cyanocobal 1-07 S pirit rivera) rivera) 00:00: - [facility] Vitamin B12 Vitamin B12 2022-0 No 1000ug Common (Cyanocobal (Cyanocobal 1-07 S pirit rivera) rivera) 00:00: - [facility] Vitamin B12 Vitamin B12 2022-0 No 1000ug Common (Cyanocobal (Cyanocobal 1-07 S pirit rivera) rivera) 00:00: - [facility] Vitamin B12 Vitamin B12 2022-0 No 1000ug Common (Cyanocobal (Cyanocobal 1-07 S pirit rivera) rivera) 00:00: - [facility] Vitamin B12 Vitamin B12 2-0 No 1000ug Common (Cyanocobal (Cyanocobal 1-07 S pirit rivera) rivera) 00:00: - [facility] Vitamin B12 Vitamin B12 2-0 No 1000ug Common (Cyanocobal (Cyanocobal 1-07 S pirit rivera) rivera) 00:00: - [facility] Vitamin B12 Vitamin B12 2021-0 No 1000ug Common (Cyanocobal (Cyanocobal 1-07 S pirit rivera) rivera) 00:00: - [facility] Vitamin B12 Vitamin B12 2021-0 No 1000ug Common (Cyanocobal (Cyanocobal 1-07 S pirit rivera) rivera) 00:00: - [facility] Vitamin B12 Vitamin B12 2021-0 No 1000ug Common (Cyanocobal (Cyanocobal 1-07 S pirit rivera) rivera) 00:00: - [facility] Vitamin B12 Vitamin B12 2021-0 No 1000ug Common (Cyanocobal (Cyanocobal 1-07 S pirit rivera) rivera) 00:00: - [facility] Vitamin B12 Vitamin B12 2-0 No 1000ug Common (Cyanocobal (Cyanocobal 1-07 S pirit rivera) rivera) 00:00: - [facility] Vitamin B12 Vitamin B12 2-0 No 1000ug Common (Cyanocobal (Cyanocobal 1-07 S pirit rivera) rivera) 00:00: - [facility] Vitamin B12 Vitamin B12 2022-0 No 1000ug Common (Cyanocobal (Cyanocobal 1-07 S pirit rivera) rivera) 00:00: - [facility] Vitamin B12 Vitamin B12 2022-0 No 1000ug Common (Cyanocobal (Cyanocobal 1-07 S pirit rivera) rivera) 00:00: - [facility] Vitamin B12 Vitamin B12 1-1 No 1000ug Common (Cyanocobal (Cyanocobal 2-17 S pirit rivera) rivera) 00:00: - [facility] Vitamin B12 Vitamin B12 2020-04 No 1000ug Common (Cyanocobal (Cyanocobal 2-17 S pirit rivera) rivera) 00:00: - [facility] Vitamin B12 Vitamin B12 2020-04 No 1000ug Common (Cyanocobal (Cyanocobal 2-17 S pirit rivera) rivera) 00:00: - [facility] Vitamin B12 Vitamin B12 2020-04 No 1000ug Common (Cyanocobal (Cyanocobal 2-17 S pirit rivera) rivera) 00:00: - [facility] Vitamin B12 Vitamin B12 2020-04 No 1000ug Common (Cyanocobal (Cyanocobal 2-17 S pirit rivera) rivera) 00:00: - [facility] Vitamin B12 Vitamin B12 2020-04 No 1000ug Common (Cyanocobal (Cyanocobal 2-17 S pirit rivera) rivera) 00:00: - [facility] Vitamin B12 Vitamin B12 2020-04 No 1000ug Common (Cyanocobal (Cyanocobal 2-17 S pirit rivera) rivera) 00:00: - [facility] Vitamin B12 Vitamin B12 2020-04 No 1000ug Common (Cyanocobal (Cyanocobal 2-17 S pirit rivera) rivera) 00:00: - [facility] Vitamin B12 Vitamin B12 2020-04 No 1000ug Common (Cyanocobal (Cyanocobal 2-17 S pirit rivera) rivera) 00:00: - [facility] Vitamin B12 Vitamin B12 2020-04 No 1000ug Common (Cyanocobal (Cyanocobal 2-17 S pirit rivera) rivera) 00:00: - [facility] Vitamin B12 Vitamin B12 2020-04 No 1000ug Common (Cyanocobal (Cyanocobal 2-17 S pirit rivera) rivera) 00:00: - [facility] Vitamin B12 Vitamin B12 2020-04 No 1000ug Common (Cyanocobal (Cyanocobal 2-17 S pirit rivera) rivera) 00:00: - [facility] Vitamin B12 Vitamin B12 2020-04 No 1000ug Common (Cyanocobal (Cyanocobal 2-17 S pirit rivera) rivera) 00:00: - [facility] Vitamin B12 Vitamin B12 2020-04 No 1000ug Common (Cyanocobal (Cyanocobal 2-17 S pirit rivera) rivera) 00:00: - [facility] Vitamin B12 Vitamin B12 2020-04 No 1000ug Common (Cyanocobal (Cyanocobal 2-17 S pirit rivera) rivera) 00:00: - [facility] Vitamin B12 Vitamin B12 2020-04 No 1000ug Common (Cyanocobal (Cyanocobal 2-17 S pirit rivera) rivera) 00:00: - [facility] Vitamin B12 Vitamin B12 2020-04 No 1000ug Common (Cyanocobal (Cyanocobal 2-17 S pirit rivera) rivera) 00:00: - [facility] Vitamin B12 Vitamin B12 2020-04 No 1000ug Common (Cyanocobal (Cyanocobal 2-17 S pirit rivera) rivera) 00:00: - [facility] Vitamin B12 Vitamin B12 2020-04 No 1000ug Common (Cyanocobal (Cyanocobal 2-17 S pirit rivera) rivera) 00:00: - [facility] Vitamin B12 Vitamin B12 2020-04 No 1000ug Common (Cyanocobal (Cyanocobal 2-17 S pirit rivera) rivera) 00:00: - [facility] Vitamin B12 Vitamin B12 2020-04 No 1000ug Common (Cyanocobal (Cyanocobal 2-17 S pirit rivera) rivera) 00:00: - [facility] Vitamin B12 Vitamin B12 2020-04 No 1000ug Common (Cyanocobal (Cyanocobal 2-17 S pirit rivera) rivera) 00:00: - [facility] Vitamin B12 Vitamin B12 2020-04 No 1000ug Common (Cyanocobal (Cyanocobal 2-17 S pirit rivera) rivera) 00:00: - [facility] Vitamin B12 Vitamin B12 2020-04 No 1000ug Common (Cyanocobal (Cyanocobal 2-17 S pirit rivera) rivera) 00:00: - [facility] Vitamin B12 Vitamin B12 2020-04 No 1000ug Common (Cyanocobal (Cyanocobal 2-17 S pirit rivera) rivera) 00:00: - [facility] Vitamin B12 Vitamin B12 2020-04 No 1000ug Common (Cyanocobal (Cyanocobal 2-17 S pirit rivera) rivera) 00:00: - [facility] Vitamin B12 Vitamin B12 2020-04 No 1000ug Common (Cyanocobal (Cyanocobal 2-17 S pirit rivera) rivera) 00:00: - [facility] Vitamin B12 Vitamin B12 2020-04 No 1000ug Common (Cyanocobal (Cyanocobal 2-17 S pirit rivera) rivera) 00:00: - [facility] Vitamin B12 Vitamin B12 2020-04 No 1000ug Common (Cyanocobal (Cyanocobal 2-17 S pirit rivera) rivera) 00:00: - [facility] Vitamin B12 Vitamin B12 2020-04 No 1000ug Common (Cyanocobal (Cyanocobal 2-17 S pirit rivera) rivera) 00:00: - [facility] Vitamin B12 Vitamin B12 2020-04 No 1000ug Common (Cyanocobal (Cyanocobal 2-17 S pirit rivera) rivera) 00:00: - [facility] Vitamin B12 Vitamin B12 2020-04 No 1000ug Common (Cyanocobal (Cyanocobal 2-17 S pirit rivera) rivera) 00:00: - [facility] Vitamin B12 Vitamin B12 2020-04 No 1000ug Common (Cyanocobal (Cyanocobal 2-17 S pirit rivera) rivera) 00:00: - [facility] Vitamin B12 Vitamin B12 2020-04 No 1000ug Common (Cyanocobal (Cyanocobal 2-17 S pirit rivera) rivera) 00:00: - [facility] Vitamin B12 Vitamin B12 2020-04 No 1000ug Common (Cyanocobal (Cyanocobal 2-17 S pirit rivera) rivera) 00:00: - [facility] Vitamin B12 Vitamin B12 2020-04 No 1000ug Common (Cyanocobal (Cyanocobal 2-17 S pirit rivera) rivera) 00:00: - [facility] Vitamin B12 Vitamin B12 2020-04 No 1000ug Common (Cyanocobal (Cyanocobal 2-17 S pirit rivera) rivera) 00:00: - [facility] Vitamin B12 Vitamin B12 2020-04 No 1000ug Common (Cyanocobal (Cyanocobal 2-17 S pirit rivera) rivera) 00:00: - [facility] Vitamin B12 Vitamin B12 2020-04 No 1000ug Common (Cyanocobal (Cyanocobal 2-03 S pirit rivera) rivera) 00:00: - [facility] Vitamin B12 Vitamin B12 2020-04 No 1000ug Common (Cyanocobal (Cyanocobal 2-03 S pirit rivera) rivera) 00:00: - [facility] Vitamin B12 Vitamin B12 2020-04 No 1000ug Common (Cyanocobal (Cyanocobal 2-03 S pirit rivera) rivera) 00:00: - [facility] Vitamin B12 Vitamin B12 2020-04 No 1000ug Common (Cyanocobal (Cyanocobal 2-03 S pirit rivera) rivera) 00:00: - [facility] Vitamin B12 Vitamin B12 2020-04 No 1000ug Common (Cyanocobal (Cyanocobal 2-03 S pirit rivera) rivera) 00:00: - [facility] Vitamin B12 Vitamin B12 2020-04 No 1000ug Common (Cyanocobal (Cyanocobal 2-03 S pirit rivera) rivera) 00:00: - [facility] Vitamin B12 Vitamin B12 2020-04 No 1000ug Common (Cyanocobal (Cyanocobal 2-03 S pirit rivera) rivera) 00:00: - [facility] Vitamin B12 Vitamin B12 2020-04 No 1000ug Common (Cyanocobal (Cyanocobal 2-03 S pirit rivera) rivera) 00:00: - [facility] Vitamin B12 Vitamin B12 2020-04 No 1000ug Common (Cyanocobal (Cyanocobal 2-03 S pirit rivera) rivera) 00:00: - [facility] Vitamin B12 Vitamin B12 2020-04 No 1000ug Common (Cyanocobal (Cyanocobal 2-03 S pirit rivera) rivera) 00:00: - [facility] Vitamin B12 Vitamin B12 2020-04 No 1000ug Common (Cyanocobal (Cyanocobal 2-03 S pirit rivera) rivera) 00:00: - [facility] Vitamin B12 Vitamin B12 2020-04 No 1000ug Common (Cyanocobal (Cyanocobal 2-03 S pirit rivera) rievra) 00:00: - [facility] Vitamin B12 Vitamin B12 2020-04 No 1000ug Common (Cyanocobal (Cyanocobal 2-03 S pirit rivera) rivera) 00:00: - [facility] Vitamin B12 Vitamin B12 2020-04 No 1000ug Common (Cyanocobal (Cyanocobal 2-03 S pirit rivera) rivera) 00:00: - [facility] Vitamin B12 Vitamin B12 2020-04 No 1000ug Common (Cyanocobal (Cyanocobal 2-03 S pirit rivera) rivera) 00:00: - [facility] Vitamin B12 Vitamin B12 2020-04 No 1000ug Common (Cyanocobal (Cyanocobal 2-03 S pirit rivera) rivera) 00:00: - [facility] Vitamin B12 Vitamin B12 2020-04 No 1000ug Common (Cyanocobal (Cyanocobal 2-03 S pirit rivera) rivera) 00:00: - [facility] Vitamin B12 Vitamin B12 2020-04 No 1000ug Common (Cyanocobal (Cyanocobal 2-03 S pirit rivera) rivera) 00:00: - [facility] Vitamin B12 Vitamin B12 2020-04 No 1000ug Common (Cyanocobal (Cyanocobal 2-03 S pirit rivera) rivera) 00:00: - [facility] Vitamin B12 Vitamin B12 2020-04 No 1000ug Common (Cyanocobal (Cyanocobal 2-03 S pirit rivera) rivera) 00:00: - [facility] Vitamin B12 Vitamin B12 2020-04 No 1000ug Common (Cyanocobal (Cyanocobal 2-03 S pirit rivera) rivera) 00:00: - [facility] Vitamin B12 Vitamin B12 2020-04 No 1000ug Common (Cyanocobal (Cyanocobal 2-03 S pirit rivera) rivera) 00:00: - [facility] Vitamin B12 Vitamin B12 2020-04 No 1000ug Common (Cyanocobal (Cyanocobal 2-03 S pirit rivera) rivera) 00:00: - [facility] Vitamin B12 Vitamin B12 2020-04 No 1000ug Common (Cyanocobal (Cyanocobal 2-03 S pirit rivera) rivera) 00:00: - [facility] Vitamin B12 Vitamin B12 2020-04 No 1000ug Common (Cyanocobal (Cyanocobal 2-03 S pirit rivera) rivera) 00:00: - [facility] Vitamin B12 Vitamin B12 2020-04 No 1000ug Common (Cyanocobal (Cyanocobal 2-03 S pirit rivera) rivera) 00:00: - [facility] Vitamin B12 Vitamin B12 2020-04 No 1000ug Common (Cyanocobal (Cyanocobal 2-03 S pirit rivera) rivera) 00:00: - [facility] Vitamin B12 Vitamin B12 2020-04 No 1000ug Common (Cyanocobal (Cyanocobal 2-03 S pirit rivera) rivera) 00:00: - [facility] Vitamin B12 Vitamin B12 2020-04 No 1000ug Common (Cyanocobal (Cyanocobal 2-03 S pirit rivera) rivera) 00:00: - [facility] Vitamin B12 Vitamin B12 2020-04 No 1000ug Common (Cyanocobal (Cyanocobal 2-03 S pirit rivera) rivera) 00:00: - [facility] Vitamin B12 Vitamin B12 2020-04 No 1000ug Common (Cyanocobal (Cyanocobal 2-03 S pirit rivera) rivera) 00:00: - [facility] Vitamin B12 Vitamin B12 2020-04 No 1000ug Common (Cyanocobal (Cyanocobal 2-03 S pirit rivera) rivera) 00:00: - [facility] Vitamin B12 Vitamin B12 2020-04 No 1000ug Common (Cyanocobal (Cyanocobal 2-03 S pirit rivera) rivera) 00:00: - [facility] Vitamin B12 Vitamin B12 2020-04 No 1000ug Common (Cyanocobal (Cyanocobal 2-03 S pirit rivera) rivera) 00:00: - [facility] Vitamin B12 Vitamin B12 2020-04 No 1000ug Common (Cyanocobal (Cyanocobal 2-03 S pirit rivera) rivera) 00:00: - [facility] Vitamin B12 Vitamin B12 2020-04 No 1000ug Common (Cyanocobal (Cyanocobal 2-03 S pirit rivera) rivera) 00:00: - [facility] Vitamin B12 Vitamin B12 2020-04 No 1000ug Common (Cyanocobal (Cyanocobal 2-03 S pirit rivera) rivera) 00:00: - [facility] Vitamin B12 Vitamin B12 2020-04 No 1000ug Common (Cyanocobal (Cyanocobal 2-03 S pirit rivera) rivera) 00:00: - [facility] Augmentin Augmentin 2020-04 2021- No 1{table Augmentin 500-125 MG 500-125 MG 05-21 t} 500-125 MG 00:00: 00:00 00 :00 Augmentin Augmentin 2020- 2021- No 1{table Augmentin 500-125 MG 500-125 MG 05-21 t} 500-125 MG 00:00: 00:00 00 :00 Vitamin B12 Vitamin B12 2020-04 No 1000ug Common (Cyanocobal (Cyanocobal 1-19 S pirit rivera) rivera) 00:00: - [facility] Vitamin B12 Vitamin B12 2020-04 No 1000ug Common (Cyanocobal (Cyanocobal 1-19 S pirit rivera) rivera) 00:00: - [facility] Vitamin B12 Vitamin B12 2020-04 No 1000ug Common (Cyanocobal (Cyanocobal 1-19 S pirit rivera) rivera) 00:00: - [facility] Vitamin B12 Vitamin B12 2020-04 No 1000ug Common (Cyanocobal (Cyanocobal 1-19 S pirit rivera) rivera) 00:00: - [facility] Vitamin B12 Vitamin B12 2020- No 1000ug Common (Cyanocobal (Cyanocobal 1-19 S pirit rivera) rivera) 00:00: - [facility] Vitamin B12 Vitamin B12 2020-04 No 1000ug Common (Cyanocobal (Cyanocobal 1-19 S pirit rivera) rivera) 00:00: - [facility] Vitamin B12 Vitamin B12 2020-04 No 1000ug Common (Cyanocobal (Cyanocobal 1-19 S pirit rivera) rivera) 00:00: - [facility] Vitamin B12 Vitamin B12 2020-04 No 1000ug Common (Cyanocobal (Cyanocobal 1-19 S pirit rivera) rivera) 00:00: - [facility] Vitamin B12 Vitamin B12 2020-04 No 1000ug Common (Cyanocobal (Cyanocobal 1-19 S pirit rivera) rivera) 00:00: - [facility] Vitamin B12 Vitamin B12 2020-04 No 1000ug Common (Cyanocobal (Cyanocobal 1-19 S pirit rivera) rivera) 00:00: - [facility] Vitamin B12 Vitamin B12 2020-04 No 1000ug Common (Cyanocobal (Cyanocobal 1-19 S pirit rivera) rivera) 00:00: - [facility] Vitamin B12 Vitamin B12 2020-04 No 1000ug Common (Cyanocobal (Cyanocobal 1-19 S pirit rivera) rivera) 00:00: - [facility] Vitamin B12 Vitamin B12 2020-04 No 1000ug Common (Cyanocobal (Cyanocobal 1-19 S pirit rivera) rivera) 00:00: - [facility] Vitamin B12 Vitamin B12 2020-04 No 1000ug Common (Cyanocobal (Cyanocobal 1-19 S pirit rivera) rivera) 00:00: - [facility] Vitamin B12 Vitamin B12 2020-04 No 1000ug Common (Cyanocobal (Cyanocobal 1-19 S pirit rivera) rivera) 00:00: - [facility] Vitamin B12 Vitamin B12 2020-04 No 1000ug Common (Cyanocobal (Cyanocobal 1-19 S pirit rivera) rivera) 00:00: - [facility] Vitamin B12 Vitamin B12 2020-04 No 1000ug Common (Cyanocobal (Cyanocobal 1-19 S pirit rivera) rivera) 00:00: - [facility] Vitamin B12 Vitamin B12 2020-04 No 1000ug Common (Cyanocobal (Cyanocobal 1-19 S pirit rivera) rivera) 00:00: - [facility] Vitamin B12 Vitamin B12 2020-04 No 1000ug Common (Cyanocobal (Cyanocobal 1-19 S pirit rivera) rivera) 00:00: - [facility] Vitamin B12 Vitamin B12 2020-04 No 1000ug Common (Cyanocobal (Cyanocobal 1-19 S pirit rivera) rivera) 00:00: - [facility] Vitamin B12 Vitamin B12 2020-04 No 1000ug Common (Cyanocobal (Cyanocobal 1-19 S pirit rivera) rivera) 00:00: - [facility] Vitamin B12 Vitamin B12 2020-04 No 1000ug Common (Cyanocobal (Cyanocobal 1-19 S pirit rivera) rivera) 00:00: - [facility] Vitamin B12 Vitamin B12 2020-04 No 1000ug Common (Cyanocobal (Cyanocobal 1-19 S pirit rivera) rivera) 00:00: - [facility] Vitamin B12 Vitamin B12 2020-04 No 1000ug Common (Cyanocobal (Cyanocobal 1-19 S pirit rivera) rivera) 00:00: - [facility] Vitamin B12 Vitamin B12 2020-04 No 1000ug Common (Cyanocobal (Cyanocobal 1-19 S pirit rivera) rivera) 00:00: - [facility] Vitamin B12 Vitamin B12 2020-04 No 1000ug Common (Cyanocobal (Cyanocobal 1-19 S pirit rivera) rivera) 00:00: - [facility] Vitamin B12 Vitamin B12 2020-04 No 1000ug Common (Cyanocobal (Cyanocobal 1-19 S pirit rivera) rivera) 00:00: - [facility] Vitamin B12 Vitamin B12 2020-04 No 1000ug Common (Cyanocobal (Cyanocobal 1-19 S pirit rivera) rivera) 00:00: - [facility] Vitamin B12 Vitamin B12 2020-04 No 1000ug Common (Cyanocobal (Cyanocobal 1-19 S pirit rivera) rivera) 00:00: - [facility] Vitamin B12 Vitamin B12 2020-04 No 1000ug Common (Cyanocobal (Cyanocobal 1-19 S pirit rivera) rivera) 00:00: - [facility] Vitamin B12 Vitamin B12 2020-04 No 1000ug Common (Cyanocobal (Cyanocobal 1-19 S pirit rivera) rivera) 00:00: - [facility] Vitamin B12 Vitamin B12 2020-04 No 1000ug Common (Cyanocobal (Cyanocobal 1-19 S pirit rivera) rivera) 00:00: - [facility] Vitamin B12 Vitamin B12 2020-04 No 1000ug Common (Cyanocobal (Cyanocobal 1-19 S pirit rivera) rivera) 00:00: - [facility] Vitamin B12 Vitamin B12 2020-04 No 1000ug Common (Cyanocobal (Cyanocobal 1-19 S pirit rivera) rivera) 00:00: - [facility] Vitamin B12 Vitamin B12 2020-04 No 1000ug Common (Cyanocobal (Cyanocobal 1-19 S pirit rivera) rivera) 00:00: - [facility] Vitamin B12 Vitamin B12 2020-04 No 1000ug Common (Cyanocobal (Cyanocobal 1-19 S pirit rivera) rivera) 00:00: - [facility] Vitamin B12 Vitamin B12 2020-04 No 1000ug Common (Cyanocobal (Cyanocobal 1-19 S pirit rivera) rivera) 00:00: - [facility] Vitamin B12 Vitamin B12 2020-04 No 1000ug Common (Cyanocobal (Cyanocobal 1-19 S pirit rivera) rivera) 00:00: - [facility] Vitamin B12 Vitamin B12 2020-04 No 1000ug Common (Cyanocobal (Cyanocobal 0-20 S pirit rivera) rivera) 00:00: - [facility] Vitamin B12 Vitamin B12 2020-04 No 1000ug Common (Cyanocobal (Cyanocobal 0-20 S pirit rivera) rivera) 00:00: - [facility] Vitamin B12 Vitamin B12 2020-04 No 1000ug Common (Cyanocobal (Cyanocobal 0-20 S pirit rivera) rivera) 00:00: - [facility] Vitamin B12 Vitamin B12 2020-04 No 1000ug Common (Cyanocobal (Cyanocobal 0-20 S pirit rivera) rivera) 00:00: - [facility] Vitamin B12 Vitamin B12 2020-04 No 1000ug Common (Cyanocobal (Cyanocobal 0-20 S pirit rivera) rivera) 00:00: - [facility] Vitamin B12 Vitamin B12 2020-04 No 1000ug Common (Cyanocobal (Cyanocobal 0-20 S pirit rivera) rivera) 00:00: - [facility] Vitamin B12 Vitamin B12 2020-04 No 1000ug Common (Cyanocobal (Cyanocobal 0-20 S pirit rivera) rivera) 00:00: - [facility] Vitamin B12 Vitamin B12 2020-04 No 1000ug Common (Cyanocobal (Cyanocobal 0-20 S pirit rivera) rivera) 00:00: - [facility] Vitamin B12 Vitamin B12 2020-04 No 1000ug Common (Cyanocobal (Cyanocobal 0-20 S pirit rivera) rivera) 00:00: - [facility] Vitamin B12 Vitamin B12 2020-04 No 1000ug Common (Cyanocobal (Cyanocobal 0-20 S pirit rivera) rivera) 00:00: - [facility] Vitamin B12 Vitamin B12 2020-04 No 1000ug Common (Cyanocobal (Cyanocobal 0-20 S pirit rivera) rivera) 00:00: - [facility] Vitamin B12 Vitamin B12 2020-04 No 1000ug Common (Cyanocobal (Cyanocobal 0-20 S pirit rivera) rivera) 00:00: - [facility] Vitamin B12 Vitamin B12 2020-04 No 1000ug Common (Cyanocobal (Cyanocobal 0-20 S pirit rivera) rivera) 00:00: - [facility] Vitamin B12 Vitamin B12 2020-04 No 1000ug Common (Cyanocobal (Cyanocobal 0-20 S pirit rivera) rivera) 00:00: - [facility] Vitamin B12 Vitamin B12 2020-04 No 1000ug Common (Cyanocobal (Cyanocobal 0-20 S pirit rivera) rivera) 00:00: - [facility] Vitamin B12 Vitamin B12 2020-04 No 1000ug Common (Cyanocobal (Cyanocobal 0-20 S pirit rivera) rivera) 00:00: - [facility] Vitamin B12 Vitamin B12 2020-04 No 1000ug Common (Cyanocobal (Cyanocobal 0-20 S pirit rivera) rivera) 00:00: - [facility] Vitamin B12 Vitamin B12 2020-04 No 1000ug Common (Cyanocobal (Cyanocobal 0-20 S pirit rivera) rivera) 00:00: - [facility] Vitamin B12 Vitamin B12 2020-04 No 1000ug Common (Cyanocobal (Cyanocobal 0-20 S pirit rivera) rivera) 00:00: - [facility] Vitamin B12 Vitamin B12 2020-04 No 1000ug Common (Cyanocobal (Cyanocobal 0-20 S pirit rivera) rivera) 00:00: - [facility] Vitamin B12 Vitamin B12 2020-04 No 1000ug Common (Cyanocobal (Cyanocobal 0-20 S pirit rivera) rivera) 00:00: - [facility] Vitamin B12 Vitamin B12 2020-04 No 1000ug Common (Cyanocobal (Cyanocobal 0-20 S pirit rivera) rivera) 00:00: - [facility] Vitamin B12 Vitamin B12 2020-04 No 1000ug Common (Cyanocobal (Cyanocobal 0-20 S pirit rivera) rivera) 00:00: - [facility] Vitamin B12 Vitamin B12 2020-04 No 1000ug Common (Cyanocobal (Cyanocobal 0-20 S pirit rivera) rivera) 00:00: - [facility] Vitamin B12 Vitamin B12 2020-04 No 1000ug Common (Cyanocobal (Cyanocobal 0-20 S pirit rivera) rivera) 00:00: - [facility] Vitamin B12 Vitamin B12 2020-04 No 1000ug Common (Cyanocobal (Cyanocobal 0-20 S pirit rivera) rivera) 00:00: - [facility] Vitamin B12 Vitamin B12 2020-04 No 1000ug Common (Cyanocobal (Cyanocobal 0-20 S pirit rivera) rivera) 00:00: - [facility] Vitamin B12 Vitamin B12 2020-04 No 1000ug Common (Cyanocobal (Cyanocobal 0-20 S pirit rivera) rivera) 00:00: - [facility] Vitamin B12 Vitamin B12 2020-04 No 1000ug Common (Cyanocobal (Cyanocobal 0-20 S pirit rivera) rivera) 00:00: - [facility] Vitamin B12 Vitamin B12 2020-04 No 1000ug Common (Cyanocobal (Cyanocobal 0-20 S pirit rivera) rivera) 00:00: - [facility] Vitamin B12 Vitamin B12 2020-04 No 1000ug Common (Cyanocobal (Cyanocobal 0-20 S pirit rivera) rivera) 00:00: - [facility] Vitamin B12 Vitamin B12 2020-04 No 1000ug Common (Cyanocobal (Cyanocobal 0-20 S pirit rivera) rivera) 00:00: - [facility] Vitamin B12 Vitamin B12 2020-04 No 1000ug Common (Cyanocobal (Cyanocobal 0-20 S pirit rivera) rivera) 00:00: - [facility] Vitamin B12 Vitamin B12 2020-04 No 1000ug Common (Cyanocobal (Cyanocobal 0-20 S pirit rivera) rivera) 00:00: - [facility] Vitamin B12 Vitamin B12 2020-04 No 1000ug Common (Cyanocobal (Cyanocobal 0-20 S pirit rievra) rivera) 00:00: - [facility] Vitamin B12 Vitamin B12 2020-04 No 1000ug Common (Cyanocobal (Cyanocobal 0-20 S pirit rivera) rivera) 00:00: - [facility] Vitamin B12 Vitamin B12 2020-04 No 1000ug Common (Cyanocobal (Cyanocobal 0-20 S pirit rivera) rivera) 00:00: - [facility] Vitamin B12 Vitamin B12 2020-04 No 1000ug Common (Cyanocobal (Cyanocobal 0-20 S pirit rivera) rivera) 00:00: - [facility] Vitamin B12 Vitamin B12 No 1000ug Common (Cyanocobal (Cyanocobal 8-25 S pirit rivera) rivera) 00:00: - [facility] Vitamin B12 Vitamin B12 No 1000ug Common (Cyanocobal (Cyanocobal 8-25 S pirit rivera) rivera) 00:00: - [facility] Vitamin B12 Vitamin B12 2020-0 No 1000ug Common (Cyanocobal (Cyanocobal 8-25 S pirit rivera) irvera) 00:00: - [facility] Vitamin B12 Vitamin B12 2020-0 No 1000ug Common (Cyanocobal (Cyanocobal 8-25 S pirit rivera) rivera) 00:00: - [facility] Vitamin B12 Vitamin B12 2020-0 No 1000ug Common (Cyanocobal (Cyanocobal 8-25 S pirit rivera) rivera) 00:00: - [facility] Vitamin B12 Vitamin B12 2020-0 No 1000ug Common (Cyanocobal (Cyanocobal 8-25 S pirit rivera) rivera) 00:00: - [facility] Vitamin B12 Vitamin B12 2020-0 No 1000ug Common (Cyanocobal (Cyanocobal 8-25 S pirit rivera) rivera) 00:00: - [facility] Vitamin B12 Vitamin B12 2020-0 No 1000ug Common (Cyanocobal (Cyanocobal 8-25 S pirit rivera) rivera) 00:00: - [facility] Vitamin B12 Vitamin B12 2020-0 No 1000ug Common (Cyanocobal (Cyanocobal 8-25 S pirit rivera) rivera) 00:00: - [facility] Vitamin B12 Vitamin B12 2020-0 No 1000ug Common (Cyanocobal (Cyanocobal 8-25 S pirit rivera) rivera) 00:00: - [facility] Vitamin B12 Vitamin B12 2020-0 No 1000ug Common (Cyanocobal (Cyanocobal 8-25 S pirit rivera) rivera) 00:00: - [facility] Vitamin B12 Vitamin B12 2020-0 No 1000ug Common (Cyanocobal (Cyanocobal 8-25 S pirit rivera) rivera) 00:00: - [facility] Vitamin B12 Vitamin B12 2020-0 No 1000ug Common (Cyanocobal (Cyanocobal 8-25 S pirit rivera) rivera) 00:00: - [facility] Vitamin B12 Vitamin B12 2020-0 No 1000ug Common (Cyanocobal (Cyanocobal 8-25 S pirit rivera) rivera) 00:00: - [facility] Vitamin B12 Vitamin B12 1-0 No 1000ug Common (Cyanocobal (Cyanocobal 8-25 S pirit rivera) rivera) 00:00: - [facility] Vitamin B12 Vitamin B12 2021-0 No 1000ug Common (Cyanocobal (Cyanocobal 8-25 S pirit rivera) rivera) 00:00: - [facility] Vitamin B12 Vitamin B12 2020-0 No 1000ug Common (Cyanocobal (Cyanocobal 8-25 S pirit rivera) rivera) 00:00: - [facility] Vitamin B12 Vitamin B12 2020-0 No 1000ug Common (Cyanocobal (Cyanocobal 8-25 S pirit rivera) rivera) 00:00: - [facility] Vitamin B12 Vitamin B12 2020-0 No 1000ug Common (Cyanocobal (Cyanocobal 8-25 S pirit rivera) rivera) 00:00: - [facility] Vitamin B12 Vitamin B12 2020-0 No 1000ug Common (Cyanocobal (Cyanocobal 8-25 S pirit rivera) rivera) 00:00: - [facility] Vitamin B12 Vitamin B12 2020-0 No 1000ug Common (Cyanocobal (Cyanocobal 8-25 S pirit rivera) rivera) 00:00: - [facility] Vitamin B12 Vitamin B12 1-0 No 1000ug Common (Cyanocobal (Cyanocobal 8-25 S pirit rivera) rivera) 00:00: - [facility] Vitamin B12 Vitamin B12 2021-0 No 1000ug Common (Cyanocobal (Cyanocobal 8-25 S pirit rivera) rivera) 00:00: - [facility] Vitamin B12 Vitamin B12 2021-0 No 1000ug Common (Cyanocobal (Cyanocobal 8-25 S pirit rivera) rivera) 00:00: - [facility] Vitamin B12 Vitamin B12 2021-0 No 1000ug Common (Cyanocobal (Cyanocobal 8-25 S pirit rivera) rivera) 00:00: - [facility] Vitamin B12 Vitamin B12 2021-0 No 1000ug Common (Cyanocobal (Cyanocobal 8-25 S pirit rivera) rivera) 00:00: - [facility] Vitamin B12 Vitamin B12 1-0 No 1000ug Common (Cyanocobal (Cyanocobal 8-25 S pirit rivera) rivera) 00:00: - [facility] Vitamin B12 Vitamin B12 1-0 No 1000ug Common (Cyanocobal (Cyanocobal 8-25 S pirit rivera) rivera) 00:00: - [facility] Vitamin B12 Vitamin B12 2021-0 No 1000ug Common (Cyanocobal (Cyanocobal 8-25 S pirit rivera) rivera) 00:00: - [facility] Vitamin B12 Vitamin B12 1-0 No 1000ug Common (Cyanocobal (Cyanocobal 8-25 S pirit rivera) rivera) 00:00: - [facility] Vitamin B12 Vitamin B12 1-0 No 1000ug Common (Cyanocobal (Cyanocobal 8-25 S pirit rivera) rivera) 00:00: - [facility] Vitamin B12 Vitamin B12 1-0 No 1000ug Common (Cyanocobal (Cyanocobal 8-25 S pirit rivera) rivera) 00:00: - [facility] Vitamin B12 Vitamin B12 1-0 No 1000ug Common (Cyanocobal (Cyanocobal 8-25 S pirit rivera) rivera) 00:00: - [facility] Vitamin B12 Vitamin B12 1-0 No 1000ug Common (Cyanocobal (Cyanocobal 8-25 S pirit rivera) rivera) 00:00: - [facility] Vitamin B12 Vitamin B12 2021-0 No 1000ug Common (Cyanocobal (Cyanocobal 8-25 S pirit rivera) rivera) 00:00: - [facility] Vitamin B12 Vitamin B12 2021-0 No 1000ug Common (Cyanocobal (Cyanocobal 8-25 S pirit rivera) rivera) 00:00: - [facility] Vitamin B12 Vitamin B12 2021-0 No 1000ug Common (Cyanocobal (Cyanocobal 8-25 S pirit rivera) rivera) 00:00: - [facility] Vitamin B12 Vitamin B12 2021-0 No 1000ug Common (Cyanocobal (Cyanocobal 8-25 S pirit rivera) rivera) 00:00: - [facility] Vitamin B12 Vitamin B12 2021-0 No 1000ug Common (Cyanocobal (Cyanocobal 8-11 S pirit rivera) rivera) 00:00: - [facility] Vitamin B12 Vitamin B12 2021-0 No 1000ug Common (Cyanocobal (Cyanocobal 8-11 S pirit rivera) rivera) 00:00: - [facility] Vitamin B12 Vitamin B12 2021-0 No 1000ug Common (Cyanocobal (Cyanocobal 8-11 S pirit rivera) rivera) 00:00: - [facility] Vitamin B12 Vitamin B12 1-0 No 1000ug Common (Cyanocobal (Cyanocobal 8-11 S pirit rivera) rivera) 00:00: - [facility] Vitamin B12 Vitamin B12 1-0 No 1000ug Common (Cyanocobal (Cyanocobal 8-11 S pirit rivera) rivera) 00:00: - [facility] Vitamin B12 Vitamin B12 1-0 No 1000ug Common (Cyanocobal (Cyanocobal 8-11 S pirit rivera) rivera) 00:00: - [facility] Vitamin B12 Vitamin B12 1-0 No 1000ug Common (Cyanocobal (Cyanocobal 8-11 S pirit rivera) rivera) 00:00: - [facility] Vitamin B12 Vitamin B12 1-0 No 1000ug Common (Cyanocobal (Cyanocobal 8-11 S pirit rivera) rivera) 00:00: - [facility] Vitamin B12 Vitamin B12 2021-0 No 1000ug Common (Cyanocobal (Cyanocobal 8-11 S pirit rivera) rivera) 00:00: - [facility] Vitamin B12 Vitamin B12 2021-0 No 1000ug Common (Cyanocobal (Cyanocobal 8-11 S pirit rivera) rivera) 00:00: - [facility] Vitamin B12 Vitamin B12 2021-0 No 1000ug Common (Cyanocobal (Cyanocobal 8-11 S pirit rivera) rivera) 00:00: - [facility] Vitamin B12 Vitamin B12 2021-0 No 1000ug Common (Cyanocobal (Cyanocobal 8-11 S pirit rivera) rivera) 00:00: - [facility] Vitamin B12 Vitamin B12 2021-0 No 1000ug Common (Cyanocobal (Cyanocobal 8-11 S pirit rivera) rivera) 00:00: - [facility] Vitamin B12 Vitamin B12 2021-0 No 1000ug Common (Cyanocobal (Cyanocobal 8-11 S pirit rivera) rivera) 00:00: - [facility] Vitamin B12 Vitamin B12 2021-0 No 1000ug Common (Cyanocobal (Cyanocobal 8-11 S pirit rivera) rivera) 00:00: - [facility] Vitamin B12 Vitamin B12 1-0 No 1000ug Common (Cyanocobal (Cyanocobal 8-11 S pirit rivera) rivera) 00:00: - [facility] Vitamin B12 Vitamin B12 1-0 No 1000ug Common (Cyanocobal (Cyanocobal 8-11 S pirit rivera) rivera) 00:00: - [facility] Vitamin B12 Vitamin B12 1-0 No 1000ug Common (Cyanocobal (Cyanocobal 8-11 S pirit rivera) rivera) 00:00: - [facility] Vitamin B12 Vitamin B12 1-0 No 1000ug Common (Cyanocobal (Cyanocobal 8-11 S pirit rivera) rivera) 00:00: - [facility] Vitamin B12 Vitamin B12 1-0 No 1000ug Common (Cyanocobal (Cyanocobal 8-11 S pirit rivera) rivera) 00:00: - [facility] Vitamin B12 Vitamin B12 2021-0 No 1000ug Common (Cyanocobal (Cyanocobal 8-11 S pirit rivera) rivera) 00:00: - [facility] Vitamin B12 Vitamin B12 2021-0 No 1000ug Common (Cyanocobal (Cyanocobal 8-11 S pirit rivera) rivera) 00:00: - [facility] Vitamin B12 Vitamin B12 2021-0 No 1000ug Common (Cyanocobal (Cyanocobal 8-11 S pirit rivera) rivera) 00:00: - [facility] Vitamin B12 Vitamin B12 2021-0 No 1000ug Common (Cyanocobal (Cyanocobal 8-11 S pirit rivera) rivera) 00:00: - [facility] Vitamin B12 Vitamin B12 2021-0 No 1000ug Common (Cyanocobal (Cyanocobal 8-11 S pirit rivera) rivera) 00:00: - [facility] Vitamin B12 Vitamin B12 2021-0 No 1000ug Common (Cyanocobal (Cyanocobal 8-11 S pirit rivera) rivera) 00:00: - [facility] Vitamin B12 Vitamin B12 1-0 No 1000ug Common (Cyanocobal (Cyanocobal 8-11 S pirit rivera) rivera) 00:00: - [facility] Vitamin B12 Vitamin B12 2020-0 No 1000ug Common (Cyanocobal (Cyanocobal 8-11 S pirit rivera) rivera) 00:00: - [facility] Vitamin B12 Vitamin B12 2020-0 No 1000ug Common (Cyanocobal (Cyanocobal 8-11 S pirit rivera) rivera) 00:00: - [facility] Vitamin B12 Vitamin B12 1-0 No 1000ug Common (Cyanocobal (Cyanocobal 8-11 S pirit rivera) rivera) 00:00: - [facility] Vitamin B12 Vitamin B12 1-0 No 1000ug Common (Cyanocobal (Cyanocobal 8-11 S pirit rivera) rivera) 00:00: - [facility] Vitamin B12 Vitamin B12 1-0 No 1000ug Common (Cyanocobal (Cyanocobal 8-11 S pirit rivera) rivera) 00:00: - [facility] Vitamin B12 Vitamin B12 2021-0 No 1000ug Common (Cyanocobal (Cyanocobal 8-11 S pirit rivera) rivera) 00:00: - [facility] Vitamin B12 Vitamin B12 2021-0 No 1000ug Common (Cyanocobal (Cyanocobal 8-11 S pirit rivera) rivera) 00:00: - [facility] Vitamin B12 Vitamin B12 2021-0 No 1000ug Common (Cyanocobal (Cyanocobal 8-11 S pirit rivera) rivera) 00:00: - [facility] Vitamin B12 Vitamin B12 1-0 No 1000ug Common (Cyanocobal (Cyanocobal 8-11 S pirit rivera) rivera) 00:00: - [facility] Vitamin B12 Vitamin B12 2020-0 No 1000ug Common (Cyanocobal (Cyanocobal 8-11 S pirit rivera) rivera) 00:00: - [facility] Vitamin B12 Vitamin B12 2020-0 No 1000ug Common (Cyanocobal (Cyanocobal 8-11 S pirit rivera) rivera) 00:00: - [facility] CeleBREX CeleBREX 2020-0 2021- No 1{capsu CeleBREX 200 MG 200 MG 8 11-08 le_with 200 MG 00:00: 00:00 _food} 00 :00 CeleBREX CeleBREX 2020-0 2021- No 1{capsu CeleBREX 200 MG 200 MG 8 11-08 le_with 200 MG 00:00: 00:00 _food} 00 :00 CeleBREX CeleBREX 2020-0 2021- No 1{capsu CeleBREX 200 MG 200 MG 8 11-08 le_with 200 MG 00:00: 00:00 _food} 00 :00 Vitamin B12 Vitamin B12 2020-0 No 1000ug Common (Cyanocobal (Cyanocobal 7-22 S pirit rivera) rivera) 00:00: - [facility] Vitamin B12 Vitamin B12 2020-0 No 1000ug Common (Cyanocobal (Cyanocobal 7-22 S pirit rivera) rivera) 00:00: - [facility] Vitamin B12 Vitamin B12 1-0 No 1000ug Common (Cyanocobal (Cyanocobal 7-22 S pirit rivera) rivera) 00:00: - [facility] Vitamin B12 Vitamin B12 1-0 No 1000ug Common (Cyanocobal (Cyanocobal 7-22 S pirit rivera) rivera) 00:00: - [facility] Vitamin B12 Vitamin B12 2021-0 No 1000ug Common (Cyanocobal (Cyanocobal 7-22 S pirit rivera) rivera) 00:00: - [facility] Vitamin B12 Vitamin B12 2020-0 No 1000ug Common (Cyanocobal (Cyanocobal 7-22 S pirit rivera) rivera) 00:00: - [facility] Vitamin B12 Vitamin B12 2021-0 No 1000ug Common (Cyanocobal (Cyanocobal 7-22 S pirit rivera) rivera) 00:00: - [facility] Vitamin B12 Vitamin B12 2021-0 No 1000ug Common (Cyanocobal (Cyanocobal 7-22 S pirit rivera) rivera) 00:00: - [facility] Vitamin B12 Vitamin B12 2021-0 No 1000ug Common (Cyanocobal (Cyanocobal 7-22 S pirit rivera) rivera) 00:00: - [facility] Vitamin B12 Vitamin B12 1-0 No 1000ug Common (Cyanocobal (Cyanocobal 7-22 S pirit rivera) rivera) 00:00: - [facility] Vitamin B12 Vitamin B12 1-0 No 1000ug Common (Cyanocobal (Cyanocobal 7-22 S pirit rivera) rivera) 00:00: - [facility] Vitamin B12 Vitamin B12 1-0 No 1000ug Common (Cyanocobal (Cyanocobal 7-22 S pirit rivera) rivera) 00:00: - [facility] Vitamin B12 Vitamin B12 1-0 No 1000ug Common (Cyanocobal (Cyanocobal 7-22 S pirit rivera) rivera) 00:00: - [facility] Vitamin B12 Vitamin B12 1-0 No 1000ug Common (Cyanocobal (Cyanocobal 7-22 S pirit rivera) rivera) 00:00: - [facility] Vitamin B12 Vitamin B12 2021-0 No 1000ug Common (Cyanocobal (Cyanocobal 7-22 S pirit rivera) rivera) 00:00: - [facility] Vitamin B12 Vitamin B12 2021-0 No 1000ug Common (Cyanocobal (Cyanocobal 7-22 S pirit rivera) rivera) 00:00: - [facility] Vitamin B12 Vitamin B12 2021-0 No 1000ug Common (Cyanocobal (Cyanocobal 7-22 S pirit rivera) rivera) 00:00: - [facility] Vitamin B12 Vitamin B12 2021-0 No 1000ug Common (Cyanocobal (Cyanocobal 7-22 S pirit rivera) rivera) 00:00: - [facility] Vitamin B12 Vitamin B12 2021-0 No 1000ug Common (Cyanocobal (Cyanocobal 7-22 S pirit rivera) rivera) 00:00: - [facility] Vitamin B12 Vitamin B12 2021-0 No 1000ug Common (Cyanocobal (Cyanocobal 7-22 S pirit rivera) rivera) 00:00: - [facility] Vitamin B12 Vitamin B12 2021-0 No 1000ug Common (Cyanocobal (Cyanocobal 7-22 S pirit rivera) rivera) 00:00: - [facility] Vitamin B12 Vitamin B12 1-0 No 1000ug Common (Cyanocobal (Cyanocobal 7-22 S pirit rivera) rivera) 00:00: - [facility] Vitamin B12 Vitamin B12 2021-0 No 1000ug Common (Cyanocobal (Cyanocobal 7-22 S pirit rivera) rivera) 00:00: - [facility] Vitamin B12 Vitamin B12 1-0 No 1000ug Common (Cyanocobal (Cyanocobal 7-22 S pirit rivera) rivera) 00:00: - [facility] Vitamin B12 Vitamin B12 1-0 No 1000ug Common (Cyanocobal (Cyanocobal 7-22 S pirit rivera) rivera) 00:00: - [facility] Vitamin B12 Vitamin B12 1-0 No 1000ug Common (Cyanocobal (Cyanocobal 7-22 S pirit rivera) rivera) 00:00: - [facility] Vitamin B12 Vitamin B12 2021-0 No 1000ug Common (Cyanocobal (Cyanocobal 7-22 S pirit rivera) rivera) 00:00: - [facility] Vitamin B12 Vitamin B12 2021-0 No 1000ug Common (Cyanocobal (Cyanocobal 7-22 S pirit rivera) rivera) 00:00: - [facility] Vitamin B12 Vitamin B12 2021-0 No 1000ug Common (Cyanocobal (Cyanocobal 7-22 S pirit rivera) rivera) 00:00: - [facility] Vitamin B12 Vitamin B12 2021-0 No 1000ug Common (Cyanocobal (Cyanocobal 7-22 S pirit rivera) rivera) 00:00: - [facility] Vitamin B12 Vitamin B12 1-0 No 1000ug Common (Cyanocobal (Cyanocobal 7-22 S pirit rivera) rivera) 00:00: - [facility] Vitamin B12 Vitamin B12 1-0 No 1000ug Common (Cyanocobal (Cyanocobal 7-22 S pirit rivera) rivera) 00:00: - [facility] Vitamin B12 Vitamin B12 1-0 No 1000ug Common (Cyanocobal (Cyanocobal 7-22 S pirit rivera) rivera) 00:00: - [facility] Vitamin B12 Vitamin B12 2020-0 No 1000ug Common (Cyanocobal (Cyanocobal 7-22 S pirit rivera) rivera) 00:00: - [facility] Vitamin B12 Vitamin B12 1-0 No 1000ug Common (Cyanocobal (Cyanocobal 7-22 S pirit rivera) rivera) 00:00: - [facility] Vitamin B12 Vitamin B12 2020-0 No 1000ug Common (Cyanocobal (Cyanocobal 7-22 S pirit rivera) rivera) 00:00: - [facility] Vitamin B12 Vitamin B12 1-0 No 1000ug Common (Cyanocobal (Cyanocobal 7-22 S pirit rivera) rivera) 00:00: - [facility] Vitamin B12 Vitamin B12 1-0 No 1000ug Common (Cyanocobal (Cyanocobal 7-22 S pirit rivera) rivera) 00:00: - [facility] LORazepam LORazepam 2020-0 No QD LORazepam 0.5 MG 0.5 MG 7-14 0.5 MG 00:00: 00 LORazepam LORazepam 2020-0 No QD LORazepam 0.5 MG 0.5 MG 7-14 0.5 MG 00:00: 00 LORazepam LORazepam 2020-0 No QD LORazepam 0.5 MG 0.5 MG 7-14 0.5 MG 00:00: 00 LORazepam LORazepam 2020-0 No QD LORazepam 0.5 MG 0.5 MG 7-14 0.5 MG 00:00: 00 LORazepam LORazepam 0 No QD LORazepam 0.5 [...] MG 0.5 MG 7-14 0.5 MG 00:: 00 LORazepam LORazepam 2020-0 No QD LORazepam 0.5 MG 0.5 MG 7-14 0.5 MG 00:00: 00 LORazepam LORazepam 2020-0 No QD LORazepam 0.5 MG 0.5 MG 7-14 0.5 MG 00:00: 00 LORazepam LORazepam 2020-0 No QD LORazepam 0.5 MG 0.5 MG 7-14 0.5 MG 00:00: 00 Vitamin B12 Vitamin B12 2020-0 No 1000ug Common (Cyanocobal (Cyanocobal 7-08 S pirit rivera) rivera) 00:00: - [facility] Vitamin B12 Vitamin B12 2020-0 No 1000ug Common (Cyanocobal (Cyanocobal 7-08 S pirit rivera) rivera) 00:00: - [facility] Vitamin B12 Vitamin B12 2020-0 No 1000ug Common (Cyanocobal (Cyanocobal 7-08 S pirit rivera) rivera) 00:00: - [facility] Vitamin B12 Vitamin B12 2020-0 No 1000ug Common (Cyanocobal (Cyanocobal 7-08 S pirit rivera) rivera) 00:00: - [facility] Vitamin B12 Vitamin B12 2020-0 No 1000ug Common (Cyanocobal (Cyanocobal 7-08 S pirit rivera) rivera) 00:00: - [facility] Vitamin B12 Vitamin B12 1-0 No 1000ug Common (Cyanocobal (Cyanocobal 7-08 S pirit rivera) rivera) 00:00: - [facility] Vitamin B12 Vitamin B12 1-0 No 1000ug Common (Cyanocobal (Cyanocobal 7-08 S pirit rivera) rivera) 00:00: - [facility] Vitamin B12 Vitamin B12 1-0 No 1000ug Common (Cyanocobal (Cyanocobal 7-08 S pirit rivera) rivera) 00:00: - [facility] Vitamin B12 Vitamin B12 2021-0 No 1000ug Common (Cyanocobal (Cyanocobal 7-08 S pirit rivera) rivera) 00:00: - [facility] Vitamin B12 Vitamin B12 1-0 No 1000ug Common (Cyanocobal (Cyanocobal 7-08 S pirit rivera) rivera) 00:00: - [facility] Vitamin B12 Vitamin B12 2020-0 No 1000ug Common (Cyanocobal (Cyanocobal 7-08 S pirit rivera) rivera) 00:00: - [facility] Vitamin B12 Vitamin B12 2021-0 No 1000ug Common (Cyanocobal (Cyanocobal 7-08 S pirit rivera) rivera) 00:00: - [facility] Vitamin B12 Vitamin B12 2020-0 No 1000ug Common (Cyanocobal (Cyanocobal 7-08 S pirit rivera) rivera) 00:00: - [facility] Vitamin B12 Vitamin B12 2020-0 No 1000ug Common (Cyanocobal (Cyanocobal 7-08 S pirit rivera) rivera) 00:00: - [facility] Vitamin B12 Vitamin B12 2020-0 No 1000ug Common (Cyanocobal (Cyanocobal 7-08 S pirit rivera) rivera) 00:00: - [facility] Vitamin B12 Vitamin B12 2020-0 No 1000ug Common (Cyanocobal (Cyanocobal 7-08 S pirit rivera) rivera) 00:00: - [facility] Vitamin B12 Vitamin B12 2020-0 No 1000ug Common (Cyanocobal (Cyanocobal 7-08 S pirit rivera) rivera) 00:00: - [facility] Vitamin B12 Vitamin B12 1-0 No 1000ug Common (Cyanocobal (Cyanocobal 7-08 S pirit rivera) rivera) 00:00: - [facility] Vitamin B12 Vitamin B12 1-0 No 1000ug Common (Cyanocobal (Cyanocobal 7-08 S pirit rivera) rivera) 00:00: - [facility] Vitamin B12 Vitamin B12 1-0 No 1000ug Common (Cyanocobal (Cyanocobal 7-08 S pirit rivera) rivera) 00:00: - [facility] Vitamin B12 Vitamin B12 2021-0 No 1000ug Common (Cyanocobal (Cyanocobal 7-08 S pirit rivera) rivera) 00:00: - [facility] Vitamin B12 Vitamin B12 202-0 No 1000ug Common (Cyanocobal (Cyanocobal 7-08 S pirit rivera) rivera) 00:00: - [facility] Vitamin B12 Vitamin B12 2021-0 No 1000ug Common (Cyanocobal (Cyanocobal 7-08 S pirit rivera) rivera) 00:00: - [facility] Vitamin B12 Vitamin B12 2021-0 No 1000ug Common (Cyanocobal (Cyanocobal 7-08 S pirit rivera) rivera) 00:00: - [facility] Vitamin B12 Vitamin B12 2021-0 No 1000ug Common (Cyanocobal (Cyanocobal 7-08 S pirit rivera) rivera) 00:00: - [facility] Vitamin B12 Vitamin B12 2020-0 No 1000ug Common (Cyanocobal (Cyanocobal 7-08 S pirit rivera) rivera) 00:00: - [facility] Vitamin B12 Vitamin B12 2021-0 No 1000ug Common (Cyanocobal (Cyanocobal 7-08 S pirit rivera) rivera) 00:00: - [facility] Vitamin B12 Vitamin B12 2021-0 No 1000ug Common (Cyanocobal (Cyanocobal 7-08 S pirit rivera) rivera) 00:00: - [facility] Vitamin B12 Vitamin B12 1-0 No 1000ug Common (Cyanocobal (Cyanocobal 7-08 S pirit rivera) rivera) 00:00: - [facility] Vitamin B12 Vitamin B12 2021-0 No 1000ug Common (Cyanocobal (Cyanocobal 7-08 S pirit rivera) rivera) 00:00: - [facility] Vitamin B12 Vitamin B12 2021-0 No 1000ug Common (Cyanocobal (Cyanocobal 7-08 S pirit rivera) rivera) 00:00: - [facility] Vitamin B12 Vitamin B12 2021-0 No 1000ug Common (Cyanocobal (Cyanocobal 7-08 S pirit rivera) rivera) 00:00: - [facility] Vitamin B12 Vitamin B12 2021-0 No 1000ug Common (Cyanocobal (Cyanocobal 7-08 S pirit rivera) rivera) 00:00: - [facility] Vitamin B12 Vitamin B12 2021-0 No 1000ug Common (Cyanocobal (Cyanocobal 7-08 S pirit rivera) rivera) 00:00: - [facility] Vitamin B12 Vitamin B12 1-0 No 1000ug Common (Cyanocobal (Cyanocobal 7-08 S pirit rivera) rivera) 00:00: - [facility] Vitamin B12 Vitamin B12 2021-0 No 1000ug Common (Cyanocobal (Cyanocobal 7-08 S pirit rivera) rivera) 00:00: - [facility] Vitamin B12 Vitamin B12 2021-0 No 1000ug Common (Cyanocobal (Cyanocobal 7-08 S pirit rivera) rivera) 00:00: - [facility] Vitamin B12 Vitamin B12 2020-0 No 1000ug Common (Cyanocobal (Cyanocobal 7-08 S pirit rivera) rivera) 00:00: - [facility] Vitamin B12 Vitamin B12 1-0 No 1000ug Common (Cyanocobal (Cyanocobal 6-18 S pirit rivera) rivera) 00:00: - [facility] Vitamin B12 Vitamin B12 1-0 No 1000ug Common (Cyanocobal (Cyanocobal 6-18 S pirit rivera) rivera) 00:00: - [facility] Vitamin B12 Vitamin B12 1-0 No 1000ug Common (Cyanocobal (Cyanocobal 6-18 S pirit rivera) rivera) 00:00: - [facility] Vitamin B12 Vitamin B12 1-0 No 1000ug Common (Cyanocobal (Cyanocobal 6-18 S pirit rivera) rivera) 00:00: - [facility] Vitamin B12 Vitamin B12 2021-0 No 1000ug Common (Cyanocobal (Cyanocobal 6-18 S pirit rivera) rivera) 00:00: - [facility] Vitamin B12 Vitamin B12 2021-0 No 1000ug Common (Cyanocobal (Cyanocobal 6-18 S pirit rivera) rivera) 00:00: - [facility] Vitamin B12 Vitamin B12 2021-0 No 1000ug Common (Cyanocobal (Cyanocobal 6-18 S pirit rivera) rivera) 00:00: - [facility] Vitamin B12 Vitamin B12 2021-0 No 1000ug Common (Cyanocobal (Cyanocobal 6-18 S pirit rivera) rivera) 00:00: - [facility] Vitamin B12 Vitamin B12 2021-0 No 1000ug Common (Cyanocobal (Cyanocobal 6-18 S pirit rivera) rivera) 00:00: - [facility] Vitamin B12 Vitamin B12 2021-0 No 1000ug Common (Cyanocobal (Cyanocobal 6-18 S pirit rivera) rivera) 00:00: - [facility] Vitamin B12 Vitamin B12 2021-0 No 1000ug Common (Cyanocobal (Cyanocobal 6-18 S pirit rivera) rivera) 00:00: - [facility] Vitamin B12 Vitamin B12 1-0 No 1000ug Common (Cyanocobal (Cyanocobal 6-18 S pirit rivera) rivera) 00:00: - [facility] Vitamin B12 Vitamin B12 2021-0 No 1000ug Common (Cyanocobal (Cyanocobal 6-18 S pirit rivera) rivera) 00:00: - [facility] Vitamin B12 Vitamin B12 1-0 No 1000ug Common (Cyanocobal (Cyanocobal 6-18 S pirit rivera) rivera) 00:00: - [facility] Vitamin B12 Vitamin B12 1-0 No 1000ug Common (Cyanocobal (Cyanocobal 6-18 S pirit rivera) rivera) 00:00: - [facility] Vitamin B12 Vitamin B12 1-0 No 1000ug Common (Cyanocobal (Cyanocobal 6-18 S pirit rivera) rivera) 00:00: - [facility] Vitamin B12 Vitamin B12 2021-0 No 1000ug Common (Cyanocobal (Cyanocobal 6-18 S pirit rivera) rivera) 00:00: - [facility] Vitamin B12 Vitamin B12 2021-0 No 1000ug Common (Cyanocobal (Cyanocobal 6-18 S pirit rivera) rivera) 00:00: - [facility] Vitamin B12 Vitamin B12 2021-0 No 1000ug Common (Cyanocobal (Cyanocobal 6-18 S pirit rivera) rivera) 00:00: - [facility] Vitamin B12 Vitamin B12 2021-0 No 1000ug Common (Cyanocobal (Cyanocobal 6-18 S pirit rivera) rivera) 00:00: - [facility] Vitamin B12 Vitamin B12 2021-0 No 1000ug Common (Cyanocobal (Cyanocobal 6-18 S pirit rivera) rivera) 00:00: - [facility] Vitamin B12 Vitamin B12 1-0 No 1000ug Common (Cyanocobal (Cyanocobal 6-18 S pirit rivera) rivera) 00:00: - [facility] Vitamin B12 Vitamin B12 1-0 No 1000ug Common (Cyanocobal (Cyanocobal 6-18 S pirit rivera) rivera) 00:00: - [facility] Vitamin B12 Vitamin B12 2020-0 No 1000ug Common (Cyanocobal (Cyanocobal 6-18 S pirit rivera) rivera) 00:00: - [facility] Vitamin B12 Vitamin B12 1-0 No 1000ug Common (Cyanocobal (Cyanocobal 6-18 S pirit rivera) rivera) 00:00: - [facility] Vitamin B12 Vitamin B12 1-0 No 1000ug Common (Cyanocobal (Cyanocobal 6-18 S pirit rivera) rivera) 00:00: - [facility] Vitamin B12 Vitamin B12 1-0 No 1000ug Common (Cyanocobal (Cyanocobal 6-18 S pirit rivera) rivera) 00:00: - [facility] Vitamin B12 Vitamin B12 1-0 No 1000ug Common (Cyanocobal (Cyanocobal 6-18 S pirit rivera) rivera) 00:00: - [facility] Vitamin B12 Vitamin B12 2021-0 No 1000ug Common (Cyanocobal (Cyanocobal 6-18 S pirit rivera) rivera) 00:00: - [facility] Vitamin B12 Vitamin B12 2021-0 No 1000ug Common (Cyanocobal (Cyanocobal 6-18 S pirit rivera) rivera) 00:00: - [facility] Vitamin B12 Vitamin B12 2021-0 No 1000ug Common (Cyanocobal (Cyanocobal 6-18 S pirit rivera) rivera) 00:00: - [facility] Vitamin B12 Vitamin B12 1-0 No 1000ug Common (Cyanocobal (Cyanocobal 6-18 S pirit rivera) rivera) 00:00: - [facility] Vitamin B12 Vitamin B12 2020-0 No 1000ug Common (Cyanocobal (Cyanocobal 6-18 S pirit rivera) rivera) 00:00: - [facility] Vitamin B12 Vitamin B12 2020-0 No 1000ug Common (Cyanocobal (Cyanocobal 6-18 S pirit rivera) rivera) 00:00: - [facility] Vitamin B12 Vitamin B12 2020-0 No 1000ug Common (Cyanocobal (Cyanocobal 6-18 S pirit rivera) rivera) 00:00: - [facility] Vitamin B12 Vitamin B12 2020-0 No 1000ug Common (Cyanocobal (Cyanocobal 6-18 S pirit rivera) rivera) 00:00: - [facility] Vitamin B12 Vitamin B12 2020-0 No 1000ug Common (Cyanocobal (Cyanocobal 6-18 S pirit rivera) rivera) 00:00: - [facility] Vitamin B12 Vitamin B12 2020-0 No 1000ug Common (Cyanocobal (Cyanocobal 6-18 S pirit rivera) rivera) 00:00: - [facility] Vitamin B12 Vitamin B12 2020-0 No 1000ug Common (Cyanocobal (Cyanocobal 5-20 S pirit rivera) rivera) 00:00: - [facility] Vitamin B12 Vitamin B12 2020-0 No 1000ug Common (Cyanocobal (Cyanocobal 5-20 S pirit rivera) rivera) 00:00: - [facility] Vitamin B12 Vitamin B12 1-0 No 1000ug Common (Cyanocobal (Cyanocobal 5-20 S pirit rivera) rivera) 00:00: - [facility] Vitamin B12 Vitamin B12 2021-0 No 1000ug Common (Cyanocobal (Cyanocobal 5-20 S pirit rivera) rivera) 00:00: - [facility] Vitamin B12 Vitamin B12 2021-0 No 1000ug Common (Cyanocobal (Cyanocobal 5-20 S pirit rivera) rivera) 00:00: - [facility] Vitamin B12 Vitamin B12 2020-0 No 1000ug Common (Cyanocobal (Cyanocobal 5-20 S pirit rivera) rivera) 00:00: - [facility] Vitamin B12 Vitamin B12 2020-0 No 1000ug Common (Cyanocobal (Cyanocobal 5-20 S pirit rivera) rivera) 00:00: - [facility] Vitamin B12 Vitamin B12 2020-0 No 1000ug Common (Cyanocobal (Cyanocobal 5-20 S pirit rivera) rivera) 00:00: - [facility] Vitamin B12 Vitamin B12 2020-0 No 1000ug Common (Cyanocobal (Cyanocobal 5-20 S pirit rivera) rivera) 00:00: - [facility] Vitamin B12 Vitamin B12 2020-0 No 1000ug Common (Cyanocobal (Cyanocobal 5-20 S pirit rivera) rivera) 00:00: - [facility] Vitamin B12 Vitamin B12 2020-0 No 1000ug Common (Cyanocobal (Cyanocobal 5-20 S pirit rivera) rivera) 00:00: - [facility] Vitamin B12 Vitamin B12 2020-0 No 1000ug Common (Cyanocobal (Cyanocobal 5-20 S pirit rivera) rivera) 00:00: - [facility] Vitamin B12 Vitamin B12 2020-0 No 1000ug Common (Cyanocobal (Cyanocobal 5-20 S pirit rivera) rivera) 00:00: - [facility] Vitamin B12 Vitamin B12 2020-0 No 1000ug Common (Cyanocobal (Cyanocobal 5-20 S pirit rivera) rivera) 00:00: - [facility] Vitamin B12 Vitamin B12 2020-0 No 1000ug Common (Cyanocobal (Cyanocobal 5-20 S pirit rivera) rivera) 00:00: - [facility] Vitamin B12 Vitamin B12 2020-0 No 1000ug Common (Cyanocobal (Cyanocobal 5-20 S pirit rivera) rivera) 00:00: - [facility] Vitamin B12 Vitamin B12 2020-0 No 1000ug Common (Cyanocobal (Cyanocobal 5-20 S pirit rivera) rivera) 00:00: - [facility] Vitamin B12 Vitamin B12 2020-0 No 1000ug Common (Cyanocobal (Cyanocobal 5-20 S pirit rivera) rivera) 00:00: - [facility] Vitamin B12 Vitamin B12 2020-0 No 1000ug Common (Cyanocobal (Cyanocobal 5-20 S pirit rivera) rivera) 00:00: - [facility] Vitamin B12 Vitamin B12 2020-0 No 1000ug Common (Cyanocobal (Cyanocobal 5-20 S pirit rivera) rivera) 00:00: - [facility] Vitamin B12 Vitamin B12 2020-0 No 1000ug Common (Cyanocobal (Cyanocobal 5-20 S pirit rivera) rivera) 00:00: - [facility] Vitamin B12 Vitamin B12 2020-0 No 1000ug Common (Cyanocobal (Cyanocobal 5-20 S pirit rivera) rivera) 00:00: - [facility] Vitamin B12 Vitamin B12 2020-0 No 1000ug Common (Cyanocobal (Cyanocobal 5-20 S pirit rivera) rivera) 00:00: - [facility] Vitamin B12 Vitamin B12 2020-0 No 1000ug Common (Cyanocobal (Cyanocobal 5-20 S pirit rivera) rivera) 00:00: - [facility] Vitamin B12 Vitamin B12 2020-0 No 1000ug Common (Cyanocobal (Cyanocobal 5-20 S pirit rivera) rivera) 00:00: - [facility] Vitamin B12 Vitamin B12 2020-0 No 1000ug Common (Cyanocobal (Cyanocobal 5-20 S pirit rivera) rivera) 00:00: - [facility] Vitamin B12 Vitamin B12 1-0 No 1000ug Common (Cyanocobal (Cyanocobal 5-20 S pirit rivera) rivera) 00:00: - [facility] Vitamin B12 Vitamin B12 2020-0 No 1000ug Common (Cyanocobal (Cyanocobal 5-20 S pirit rivera) rivera) 00:00: - [facility] Vitamin B12 Vitamin B12 2020-0 No 1000ug Common (Cyanocobal (Cyanocobal 5-20 S pirit rivera) rivera) 00:00: - [facility] Vitamin B12 Vitamin B12 2020-0 No 1000ug Common (Cyanocobal (Cyanocobal 5-20 S pirit rivera) rivera) 00:00: - [facility] Vitamin B12 Vitamin B12 2020-0 No 1000ug Common (Cyanocobal (Cyanocobal 5-20 S pirit rivera) rivera) 00:00: - [facility] Vitamin B12 Vitamin B12 2020-0 No 1000ug Common (Cyanocobal (Cyanocobal 5-20 S pirit rivera) rivera) 00:00: - [facility] Vitamin B12 Vitamin B12 2020-0 No 1000ug Common (Cyanocobal (Cyanocobal 5-20 S pirit rivera) rivera) 00:00: - [facility] Vitamin B12 Vitamin B12 2020-0 No 1000ug Common (Cyanocobal (Cyanocobal 5-20 S pirit rivera) rivera) 00:00: - [facility] Vitamin B12 Vitamin B12 2020-0 No 1000ug Common (Cyanocobal (Cyanocobal 5-20 S pirit rivera) rivera) 00:00: - [facility] Vitamin B12 Vitamin B12 2020-0 No 1000ug Common (Cyanocobal (Cyanocobal 5-20 S pirit rivera) rivera) 00:00: - [facility] Vitamin B12 Vitamin B12 2020-0 No 1000ug Common (Cyanocobal (Cyanocobal 5-20 S pirit rivera) rivera) 00:00: - [facility] Vitamin B12 Vitamin B12 2020-0 No 1000ug Common (Cyanocobal (Cyanocobal 5-20 S pirit rivera) rivera) 00:00: - [facility] Vitamin B12 Vitamin B12 1-0 No 1000ug Common (Cyanocobal (Cyanocobal 5-06 S pirit rivera) rivera) 00:00: - [facility] Vitamin B12 Vitamin B12 2021-0 No 1000ug Common (Cyanocobal (Cyanocobal 5-06 S pirit rivera) rivera) 00:00: - [facility] Vitamin B12 Vitamin B12 2020-0 No 1000ug Common (Cyanocobal (Cyanocobal 5-06 S pirit rivera) rivera) 00:00: - [facility] Vitamin B12 Vitamin B12 2020-0 No 1000ug Common (Cyanocobal (Cyanocobal 5-06 S pirit rivera) rivera) 00:00: - [facility] Vitamin B12 Vitamin B12 2020-0 No 1000ug Common (Cyanocobal (Cyanocobal 5-06 S pirit rivera) rivear) 00:00: - [facility] 00 [facility] Vitamin B12 Vitamin B12 2020-0 No 1000ug Common (Cyanocobal (Cyanocobal 5-06 S pirit rivera) rivera) 00:00: - [facility] Vitamin B12 Vitamin B12 2020-0 No 1000ug Common (Cyanocobal (Cyanocobal 5-06 S pirit rivera) rivera) 00:00: - [facility] Vitamin B12 Vitamin B12 2020-0 No 1000ug Common (Cyanocobal (Cyanocobal 5-06 S pirit rivera) rivera) 00:00: - [facility] Vitamin B12 Vitamin B12 2020-0 No 1000ug Common (Cyanocobal (Cyanocobal 5-06 S pirit rivera) rivera) 00:00: - [facility] Vitamin B12 Vitamin B12 2020-0 No 1000ug Common (Cyanocobal (Cyanocobal 5-06 S pirit rivera) rivera) 00:00: - [facility] Vitamin B12 Vitamin B12 1-0 No 1000ug Common (Cyanocobal (Cyanocobal 5-06 S pirit rivera) rivera) 00:00: - [facility] Vitamin B12 Vitamin B12 1-0 No 1000ug Common (Cyanocobal (Cyanocobal 5-06 S pirit rivera) rivera) 00:00: - [facility] Vitamin B12 Vitamin B12 1-0 No 1000ug Common (Cyanocobal (Cyanocobal 5-06 S pirit rivera) rivera) 00:00: - [facility] Vitamin B12 Vitamin B12 2021-0 No 1000ug Common (Cyanocobal (Cyanocobal 5-06 S pirit rivera) rivera) 00:00: - [facility] Vitamin B12 Vitamin B12 2020-0 No 1000ug Common (Cyanocobal (Cyanocobal 5-06 S pirit rivera) rivera) 00:00: - [facility] Vitamin B12 Vitamin B12 2020-0 No 1000ug Common (Cyanocobal (Cyanocobal 5-06 S pirit rivera) rivera) 00:00: - [facility] Vitamin B12 Vitamin B12 2020-0 No 1000ug Common (Cyanocobal (Cyanocobal 5-06 S pirit rivera) rivera) 00:00: - [facility] Vitamin B12 Vitamin B12 2020-0 No 1000ug Common (Cyanocobal (Cyanocobal 5-06 S pirit rivera) rivera) 00:00: - [facility] Vitamin B12 Vitamin B12 2020-0 No 1000ug Common (Cyanocobal (Cyanocobal 5-06 S pirit rivera) rivera) 00:00: - [facility] Vitamin B12 Vitamin B12 2020-0 No 1000ug Common (Cyanocobal (Cyanocobal 5-06 S pirit rivera) rivera) 00:00: - [facility] Vitamin B12 Vitamin B12 2020-0 No 1000ug Common (Cyanocobal (Cyanocobal 5-06 S pirit rivera) rivera) 00:00: - [facility] Vitamin B12 Vitamin B12 2020-0 No 1000ug Common (Cyanocobal (Cyanocobal 5-06 S pirit rivera) rivera) 00:00: - [facility] Vitamin B12 Vitamin B12 2020-0 No 1000ug Common (Cyanocobal (Cyanocobal 5-06 S pirit rivera) rivera) 00:00: - [facility] Vitamin B12 Vitamin B12 2020-0 No 1000ug Common (Cyanocobal (Cyanocobal 5-06 S pirit rivera) rivera) 00:00: - [facility] Vitamin B12 Vitamin B12 1-0 No 1000ug Common (Cyanocobal (Cyanocobal 5-06 S pirit rivera) rivera) 00:00: - [facility] Vitamin B12 Vitamin B12 2021-0 No 1000ug Common (Cyanocobal (Cyanocobal 5-06 S pirit rivera) rivera) 00:00: - [facility] Vitamin B12 Vitamin B12 2020-0 No 1000ug Common (Cyanocobal (Cyanocobal 5-06 S pirit rivera) rivera) 00:00: - [facility] Vitamin B12 Vitamin B12 2020-0 No 1000ug Common (Cyanocobal (Cyanocobal 5-06 S pirit rivera) rivera) 00:00: - [facility] Vitamin B12 Vitamin B12 2020-0 No 1000ug Common (Cyanocobal (Cyanocobal 5-06 S pirit rivera) rivera) 00:00: - [facility] Vitamin B12 Vitamin B12 2020-0 No 1000ug Common (Cyanocobal (Cyanocobal 5-06 S pirit rivera) rivera) 00:00: - [facility] Vitamin B12 Vitamin B12 2020-0 No 1000ug Common (Cyanocobal (Cyanocobal 5-06 S pirit rivera) rivera) 00:00: - [facility] Vitamin B12 Vitamin B12 2020-0 No 1000ug Common (Cyanocobal (Cyanocobal 5-06 S pirit rivera) rivera) 00:00: - [facility] Vitamin B12 Vitamin B12 2020-0 No 1000ug Common (Cyanocobal (Cyanocobal 5-06 S pirit rivera) rivera) 00:00: - [facility] Vitamin B12 Vitamin B12 2020-0 No 1000ug Common (Cyanocobal (Cyanocobal 5-06 S pirit rivera) rivera) 00:00: - [facility] Vitamin B12 Vitamin B12 2020-0 No 1000ug Common (Cyanocobal (Cyanocobal 5-06 S pirit rivera) rivera) 00:00: - [facility] Vitamin B12 Vitamin B12 2020-0 No 1000ug Common (Cyanocobal (Cyanocobal 5-06 S pirit rivera) rivera) 00:00: - [facility] Vitamin B12 Vitamin B12 1-0 No 1000ug Common (Cyanocobal (Cyanocobal 5-06 S pirit rivear) rivera) 00:00: - [facility] Vitamin B12 Vitamin B12 2021-0 No 1000ug Common (Cyanocobal (Cyanocobal 5-06 S pirit rivera) rivera) 00:00: - [facility] Vitamin B12 Vitamin B12 2020-0 No 1000ug Common (Cyanocobal (Cyanocobal 4-27 S pirit rivera) rivera) 00:00: - [facility] Vitamin B12 Vitamin B12 2021-0 No 1000ug Common (Cyanocobal (Cyanocobal 4-27 S pirit rivera) rivera) 00:00: - [facility] Vitamin B12 Vitamin B12 2021-0 No 1000ug Common (Cyanocobal (Cyanocobal 4-27 S pirit rivera) rivera) 00:00: - [facility] Vitamin B12 Vitamin B12 2021-0 No 1000ug Common (Cyanocobal (Cyanocobal 4-27 S pirit rivera) rivera) 00:00: - [facility] Vitamin B12 Vitamin B12 2020-0 No 1000ug Common (Cyanocobal (Cyanocobal 4-27 S pirit rivera) rivera) 00:00: - [facility] Vitamin B12 Vitamin B12 2021-0 No 1000ug Common (Cyanocobal (Cyanocobal 4-27 S pirit rivera) rivera) 00:00: - [facility] 00 [facility] Vitamin B12 Vitamin B12 1-0 No 1000ug Common (Cyanocobal (Cyanocobal 4-27 S pirit rivera) rivera) 00:00: - [facility] 00 [facility] Vitamin B12 Vitamin B12 1-0 No 1000ug Common (Cyanocobal (Cyanocobal 4-27 S pirit rivera) rivera) 00:00: - [facility] Vitamin B12 Vitamin B12 2021-0 No 1000ug Common (Cyanocobal (Cyanocobal 4-27 S pirit rivera) rivera) 00:00: - [facility] 00 [facility] Vitamin B12 Vitamin B12 2021-0 No 1000ug Common (Cyanocobal (Cyanocobal 4-27 S pirit rivera) rivera) 00:00: - [facility] 00 [facility] Vitamin B12 Vitamin B12 2021-0 No 1000ug Common (Cyanocobal (Cyanocobal 4-27 S pirit rivera) rivera) 00:00: - [facility] 00 [facility] Vitamin B12 Vitamin B12 2021-0 No 1000ug Common (Cyanocobal (Cyanocobal 4-27 S pirit rivera) rivera) 00:00: - [facility] 00 [facility] Vitamin B12 Vitamin B12 2021-0 No 1000ug Common (Cyanocobal (Cyanocobal 4-27 S pirit rivera) rivera) 00:00: - [facility] 00 [facility] Vitamin B12 Vitamin B12 1-0 No 1000ug Common (Cyanocobal (Cyanocobal 4-27 S pirit rivera) rivera) 00:00: - [facility] 00 [facility] Vitamin B12 Vitamin B12 1-0 No 1000ug Common (Cyanocobal (Cyanocobal 4-27 S pirit rivera) rivera) 00:00: - [facility] 00 [facility] Vitamin B12 Vitamin B12 2021-0 No 1000ug Common (Cyanocobal (Cyanocobal 4-27 S pirit rivera) rivera) 00:00: - [facility] 00 [facility] Vitamin B12 Vitamin B12 2020-0 No 1000ug Common (Cyanocobal (Cyanocobal 4-27 S pirit rivera) rivera) 00:00: - [facility] 00 [facility] Vitamin B12 Vitamin B12 1-0 No 1000ug Common (Cyanocobal (Cyanocobal 4-27 S pirit rivera) rivera) 00:00: - [facility] 00 [facility] Vitamin B12 Vitamin B12 1-0 No 1000ug Common (Cyanocobal (Cyanocobal 4-27 S pirit rivera) rivera) 00:00: - [facility] 00 [facility] Vitamin B12 Vitamin B12 1-0 No 1000ug Common (Cyanocobal (Cyanocobal 4-27 S pirit rivera) rivera) 00:00: - [facility] 00 [facility] Vitamin B12 Vitamin B12 1-0 No 1000ug Common (Cyanocobal (Cyanocobal 4-27 S pirit rivera) rivera) 00:00: - [facility] 00 [facility] Vitamin B12 Vitamin B12 2021-0 No 1000ug Common (Cyanocobal (Cyanocobal 4-27 S pirit rivera) rivera) 00:00: - [facility] 00 [facility] Vitamin B12 Vitamin B12 2021-0 No 1000ug Common (Cyanocobal (Cyanocobal 4-27 S pirit rivera) rivera) 00:00: - [facility] 00 [facility] Vitamin B12 Vitamin B12 2021-0 No 1000ug Common (Cyanocobal (Cyanocobal 4-27 S pirit rivera) rivera) 00:00: - [facility] 00 [facility] Vitamin B12 Vitamin B12 2021-0 No 1000ug Common (Cyanocobal (Cyanocobal 4-27 S pirit rivera) rivera) 00:00: - [facility] Vitamin B12 Vitamin B12 2021-0 No 1000ug Common (Cyanocobal (Cyanocobal 4-27 S pirit rivera) rivera) 00:00: - [facility] 00 [facility] Vitamin B12 Vitamin B12 2021-0 No 1000ug Common (Cyanocobal (Cyanocobal 4-27 S pirit rivera) rivera) 00:00: - [facility] Vitamin B12 Vitamin B12 2021-0 No 1000ug Common (Cyanocobal (Cyanocobal 4-27 S pirit rivera) rivera) 00:00: - [facility] Vitamin B12 Vitamin B12 1-0 No 1000ug Common (Cyanocobal (Cyanocobal 4-27 S pirit rivera) rivera) 00:00: - [facility] Vitamin B12 Vitamin B12 1-0 No 1000ug Common (Cyanocobal (Cyanocobal 4-27 S pirit rivera) rivera) 00:00: - [facility] Vitamin B12 Vitamin B12 1-0 No 1000ug Common (Cyanocobal (Cyanocobal 4-27 S pirit rivera) rivera) 00:00: - [facility] 00 [facility] Vitamin B12 Vitamin B12 1-0 No 1000ug Common (Cyanocobal (Cyanocobal 4-27 S pirit rivera) rivera) 00:00: - [facility] Vitamin B12 Vitamin B12 1-0 No 1000ug Common (Cyanocobal (Cyanocobal 4-27 S pirit rivera) rivera) 00:00: - [facility] Vitamin B12 Vitamin B12 2021-0 No 1000ug Common (Cyanocobal (Cyanocobal 4-27 S pirit rivera) rivera) 00:00: - [facility] Vitamin B12 Vitamin B12 2021-0 No 1000ug Common (Cyanocobal (Cyanocobal 4-27 S pirit rivera) rivera) 00:00: - [facility] 00 [facility] Vitamin B12 Vitamin B12 2021-0 No 1000ug Common (Cyanocobal (Cyanocobal 4-27 S pirit rivera) rivera) 00:00: - [facility] Vitamin B12 Vitamin B12 2021-0 No 1000ug Common (Cyanocobal (Cyanocobal 4-27 S pirit rivera) rivera) 00:00: - [facility] 00 [facility] Vitamin B12 Vitamin B12 2021-0 No 1000ug Common (Cyanocobal (Cyanocobal 4-27 S pirit rivera) rivera) 00:00: - [facility] 00 [facility] Vitamin B12 Vitamin B12 1-0 No 1000ug Common (Cyanocobal (Cyanocobal 4-08 S pirit rivera) rivera) 00:00: - [facility] 00 [facility] Vitamin B12 Vitamin B12 2020-0 No 1000ug Common (Cyanocobal (Cyanocobal 4-08 S pirit rivera) rivera) 00:00: - [facility] Vitamin B12 Vitamin B12 2020-0 No 1000ug Common (Cyanocobal (Cyanocobal 4-08 S pirit rivera) rivera) 00:00: - [facility] Vitamin B12 Vitamin B12 1-0 No 1000ug Common (Cyanocobal (Cyanocobal 4-08 S pirit rivera) rivera) 00:00: - [facility] Vitamin B12 Vitamin B12 1-0 No 1000ug Common (Cyanocobal (Cyanocobal 4-08 S pirit rivera) rivera) 00:00: - [facility] Vitamin B12 Vitamin B12 1-0 No 1000ug Common (Cyanocobal (Cyanocobal 4-08 S pirit rivera) rivera) 00:00: - [facility] Vitamin B12 Vitamin B12 1-0 No 1000ug Common (Cyanocobal (Cyanocobal 4-08 S pirit rivera) rivera) 00:00: - [facility] Vitamin B12 Vitamin B12 2021-0 No 1000ug Common (Cyanocobal (Cyanocobal 4-08 S pirit rivera) rivera) 00:00: - [facility] Vitamin B12 Vitamin B12 2021-0 No 1000ug Common (Cyanocobal (Cyanocobal 4-08 S pirit rivera) rivera) 00:00: - [facility] Vitamin B12 Vitamin B12 2021-0 No 1000ug Common (Cyanocobal (Cyanocobal 4-08 S pirit rivera) rivera) 00:00: - [facility] Vitamin B12 Vitamin B12 2021-0 No 1000ug Common (Cyanocobal (Cyanocobal 4-08 S pirit rivera) rivera) 00:00: - [facility] Vitamin B12 Vitamin B12 2021-0 No 1000ug Common (Cyanocobal (Cyanocobal 4-08 S pirit rivera) rivera) 00:00: - [facility] Vitamin B12 Vitamin B12 2021-0 No 1000ug Common (Cyanocobal (Cyanocobal 4-08 S pirit rivera) rivera) 00:00: - [facility] Vitamin B12 Vitamin B12 2020-0 No 1000ug Common (Cyanocobal (Cyanocobal 4-08 S pirit rivera) rivera) 00:00: - [facility] Vitamin B12 Vitamin B12 2020-0 No 1000ug Common (Cyanocobal (Cyanocobal 4-08 S pirit rivera) rivera) 00:00: - [facility] Vitamin B12 Vitamin B12 2020-0 No 1000ug Common (Cyanocobal (Cyanocobal 4-08 S pirit rivera) rivera) 00:00: - [facility] Vitamin B12 Vitamin B12 2020-0 No 1000ug Common (Cyanocobal (Cyanocobal 4-08 S pirit rivera) rivera) 00:00: - [facility] Vitamin B12 Vitamin B12 1-0 No 1000ug Common (Cyanocobal (Cyanocobal 4-08 S pirit rivera) rivera) 00:00: - [facility] Vitamin B12 Vitamin B12 1-0 No 1000ug Common (Cyanocobal (Cyanocobal 4-08 S pirit rivera) rivera) 00:00: - [facility] Vitamin B12 Vitamin B12 2021-0 No 1000ug Common (Cyanocobal (Cyanocobal 4-08 S pirit rivera) rivera) 00:00: - [facility] Vitamin B12 Vitamin B12 2021-0 No 1000ug Common (Cyanocobal (Cyanocobal 4-08 S pirit rivera) rivera) 00:00: - [facility] Vitamin B12 Vitamin B12 2021-0 No 1000ug Common (Cyanocobal (Cyanocobal 4-08 S pirit rivera) rivera) 00:00: - [facility] Vitamin B12 Vitamin B12 2021-0 No 1000ug Common (Cyanocobal (Cyanocobal 4-08 S pirit rivera) rivera) 00:00: - [facility] Vitamin B12 Vitamin B12 2021-0 No 1000ug Common (Cyanocobal (Cyanocobal 4-08 S pirit rivera) rivera) 00:00: - [facility] Vitamin B12 Vitamin B12 2021-0 No 1000ug Common (Cyanocobal (Cyanocobal 4-08 S pirit rivera) rivera) 00:00: - [facility] Vitamin B12 Vitamin B12 1-0 No 1000ug Common (Cyanocobal (Cyanocobal 4-08 S pirit rivera) rivera) 00:00: - [facility] Vitamin B12 Vitamin B12 1-0 No 1000ug Common (Cyanocobal (Cyanocobal 4-08 S pirit rivera) rivera) 00:00: - [facility] Vitamin B12 Vitamin B12 1-0 No 1000ug Common (Cyanocobal (Cyanocobal 4-08 S pirit rivera) rivera) 00:00: - [facility] Vitamin B12 Vitamin B12 1-0 No 1000ug Common (Cyanocobal (Cyanocobal 4-08 S pirit rivera) rivera) 00:00: - [facility] Vitamin B12 Vitamin B12 1-0 No 1000ug Common (Cyanocobal (Cyanocobal 4-08 S pirit rivera) rivera) 00:00: - [facility] Vitamin B12 Vitamin B12 1-0 No 1000ug Common (Cyanocobal (Cyanocobal 4-08 S pirit rivera) rivera) 00:00: - [facility] Vitamin B12 Vitamin B12 2021-0 No 1000ug Common (Cyanocobal (Cyanocobal 4-08 S pirit rivera) rivera) 00:00: - [facility] Vitamin B12 Vitamin B12 2021-0 No 1000ug Common (Cyanocobal (Cyanocobal 4-08 S pirit rivera) rivera) 00:00: - [facility] Vitamin B12 Vitamin B12 2021-0 No 1000ug Common (Cyanocobal (Cyanocobal 4-08 S pirit rivera) rivera) 00:00: - [facility] Vitamin B12 Vitamin B12 1-0 No 1000ug Common (Cyanocobal (Cyanocobal 4-08 S pirit rivera) rivera) 00:00: - [facility] Vitamin B12 Vitamin B12 2020-0 No 1000ug Common (Cyanocobal (Cyanocobal 4-08 S pirit rivera) rivera) 00:00: - [facility] Vitamin B12 Vitamin B12 2020-0 No 1000ug Common (Cyanocobal (Cyanocobal 4-08 S pirit rivera) rivera) 00:00: - [facility] Vitamin B12 Vitamin B12 2020-0 No 1000ug Common (Cyanocobal (Cyanocobal 4-08 S pirit rivera) rivera) 00:00: - [facility] Vitamin B12 Vitamin B12 2020-0 No 1000ug Common (Cyanocobal (Cyanocobal 3-25 S pirit rivera) rivera) 00:00: - [facility] Vitamin B12 Vitamin B12 2020-0 No 1000ug Common (Cyanocobal (Cyanocobal 3-25 S pirit rivera) rivera) 00:00: - [facility] Vitamin B12 Vitamin B12 2020-0 No 1000ug Common (Cyanocobal (Cyanocobal 3-25 S pirit rivera) rivera) 00:00: - [facility] Vitamin B12 Vitamin B12 1-0 No 1000ug Common (Cyanocobal (Cyanocobal 3-25 S pirit rivera) rivera) 00:00: - [facility] Vitamin B12 Vitamin B12 1-0 No 1000ug Common (Cyanocobal (Cyanocobal 3-25 S pirit rivera) rivera) 00:00: - [facility] Vitamin B12 Vitamin B12 2021-0 No 1000ug Common (Cyanocobal (Cyanocobal 3-25 S pirit rivera) rivera) 00:00: - [facility] Vitamin B12 Vitamin B12 2021-0 No 1000ug Common (Cyanocobal (Cyanocobal 3-25 S pirit rivera) rivera) 00:00: - [facility] Vitamin B12 Vitamin B12 2021-0 No 1000ug Common (Cyanocobal (Cyanocobal 3-25 S pirit rivera) rivera) 00:00: - [facility] Vitamin B12 Vitamin B12 2020-0 No 1000ug Common (Cyanocobal (Cyanocobal 3-25 S pirit rivera) rivera) 00:00: - [facility] Vitamin B12 Vitamin B12 1-0 No 1000ug Common (Cyanocobal (Cyanocobal 3-25 S pirit rivera) rivera) 00:00: - [facility] Vitamin B12 Vitamin B12 2020-0 No 1000ug Common (Cyanocobal (Cyanocobal 3-25 S pirit rivera) rivera) 00:00: - [facility] Vitamin B12 Vitamin B12 2020-0 No 1000ug Common (Cyanocobal (Cyanocobal 3-25 S pirit rivera) rivera) 00:00: - [facility] Vitamin B12 Vitamin B12 2020-0 No 1000ug Common (Cyanocobal (Cyanocobal 3-25 S pirit rivera) rivera) 00:00: - [facility] Vitamin B12 Vitamin B12 2020-0 No 1000ug Common (Cyanocobal (Cyanocobal 3-25 S pirit rivera) rivera) 00:00: - [facility] Vitamin B12 Vitamin B12 2020-0 No 1000ug Common (Cyanocobal (Cyanocobal 3-25 S pirit rivera) rivera) 00:00: - [facility] Vitamin B12 Vitamin B12 1-0 No 1000ug Common (Cyanocobal (Cyanocobal 3-25 S pirit river[place]) rivera) 00:00: - [facility] Vitamin B12 Vitamin B12 1-0 No 1000ug Common (Cyanocobal (Cyanocobal 3-25 S pirit rivera) rivera) 00:00: - [facility] Vitamin B12 Vitamin B12 1-0 No 1000ug Common (Cyanocobal (Cyanocobal 3-25 S pirit rivera) rivera) 00:00: - [facility] Vitamin B12 Vitamin B12 2021-0 No 1000ug Common (Cyanocobal (Cyanocobal 3-25 S pirit rivera) rivera) 00:00: - [facility] Vitamin B12 Vitamin B12 1-0 No 1000ug Common (Cyanocobal (Cyanocobal 3-25 S pirit rivera) rivera) 00:00: - [facility] Vitamin B12 Vitamin B12 2020-0 No 1000ug Common (Cyanocobal (Cyanocobal 3-25 S pirit rivera) rivera) 00:00: - [facility] Vitamin B12 Vitamin B12 2020-0 No 1000ug Common (Cyanocobal (Cyanocobal 3-25 S pirit rivera) rivera) 00:00: - [facility] Vitamin B12 Vitamin B12 2020-0 No 1000ug Common (Cyanocobal (Cyanocobal 3-25 S pirit rivera) rivera) 00:00: - [facility] Vitamin B12 Vitamin B12 2020-0 No 1000ug Common (Cyanocobal (Cyanocobal 3-25 S pirit rivera) rivera) 00:00: - [facility] Vitamin B12 Vitamin B12 2020-0 No 1000ug Common (Cyanocobal (Cyanocobal 3-25 S pirit rivera) rivera) 00:00: - [facility] Vitamin B12 Vitamin B12 2020-0 No 1000ug Common (Cyanocobal (Cyanocobal 3-25 S pirit rivera) rivera) 00:00: - [facility] Vitamin B12 Vitamin B12 2020-0 No 1000ug Common (Cyanocobal (Cyanocobal 3-25 S pirit river[place]) rivera) 00:00: - [facility] Vitamin B12 Vitamin B12 1-0 No 1000ug Common (Cyanocobal (Cyanocobal 3-25 S pirit rivera) rivera) 00:00: - [facility] Vitamin B12 Vitamin B12 2020-0 No 1000ug Common (Cyanocobal (Cyanocobal 3-25 S pirit rivera) rivera) 00:00: - [facility] Vitamin B12 Vitamin B12 1-0 No 1000ug Common (Cyanocobal (Cyanocobal 3-25 S pirit rivera) rivera) 00:00: - [facility] Vitamin B12 Vitamin B12 2021-0 No 1000ug Common (Cyanocobal (Cyanocobal 3-25 S pirit river[place]) rivera) 00:00: - [facility] Vitamin B12 Vitamin B12 2020-0 No 1000ug Common (Cyanocobal (Cyanocobal 3-25 S pirit rivera) rivera) 00:00: - [facility] Vitamin B12 Vitamin B12 2020-0 No 1000ug Common (Cyanocobal (Cyanocobal 3-25 S pirit river[place]) rivera) 00:00: - [facility] Vitamin B12 Vitamin B12 2020-0 No 1000ug Common (Cyanocobal (Cyanocobal 3-25 S pirit rivera) rivera) 00:00: - [facility] Vitamin B12 Vitamin B12 2020-0 No 1000ug Common (Cyanocobal (Cyanocobal 3-25 S pirit river[place]) rivera) 00:00: - [facility] Vitamin B12 Vitamin B12 2020-0 No 1000ug Common (Cyanocobal (Cyanocobal 3-25 S pirit rivera) rivera) 00:00: - [facility] Vitamin B12 Vitamin B12 2020-0 No 1000ug Common (Cyanocobal (Cyanocobal 3-25 S pirit rivera) rivera) 00:00: - [facility] Vitamin B12 Vitamin B12 2020-0 No 1000ug Common (Cyanocobal (Cyanocobal 3-25 S pirit rivera) rivera) 00:00: - [facility] Vitamin B12 Vitamin B12 2020-0 No 1000ug Common (Cyanocobal (Cyanocobal 2-10 S pirit rivera) rivera) 00:00: - [facility] Vitamin B12 Vitamin B12 2020-0 No 1000ug Common (Cyanocobal (Cyanocobal 2-10 S pirit rivera) rivera) 00:00: - [facility] Vitamin B12 Vitamin B12 2020-0 No 1000ug Common (Cyanocobal (Cyanocobal 2-10 S pirit rivera) rivera) 00:00: - [facility] Vitamin B12 Vitamin B12 2020-0 No 1000ug Common (Cyanocobal (Cyanocobal 2-10 S pirit rivera) rivera) 00:00: - [facility] Vitamin B12 Vitamin B12 2020-0 No 1000ug Common (Cyanocobal (Cyanocobal 2-10 S pirit rivera) rivera) 00:00: - [facility] Vitamin B12 Vitamin B12 2020-0 No 1000ug Common (Cyanocobal (Cyanocobal 2-10 S pirit rivera) rivera) 00:00: - [facility] Vitamin B12 Vitamin B12 2020-0 No 1000ug Common (Cyanocobal (Cyanocobal 2-10 S pirit rivera) rivera) 00:00: - [facility] Vitamin B12 Vitamin B12 2021-0 No 1000ug Common (Cyanocobal (Cyanocobal 2-10 S pirit rivera) rivera) 00:00: - [facility] Vitamin B12 Vitamin B12 2020-0 No 1000ug Common (Cyanocobal (Cyanocobal 2-10 S pirit rivera) rivera) 00:00: - [facility] Vitamin B12 Vitamin B12 2020-0 No 1000ug Common (Cyanocobal (Cyanocobal 2-10 S pirit rivera) rivera) 00:00: - [facility] Vitamin B12 Vitamin B12 2020-0 No 1000ug Common (Cyanocobal (Cyanocobal 2-10 S pirit rivera) rivera) 00:00: - [facility] Vitamin B12 Vitamin B12 2020-0 No 1000ug Common (Cyanocobal (Cyanocobal 2-10 S pirit rivera) rivera) 00:00: - [facility] Vitamin B12 Vitamin B12 2020-0 No 1000ug Common (Cyanocobal (Cyanocobal 2-10 S pirit river[place]) rivera) 00:00: - [facility] Vitamin B12 Vitamin B12 2020-0 No 1000ug Common (Cyanocobal (Cyanocobal 2-10 S pirit rivera) rivera) 00:00: - [facility] Vitamin B12 Vitamin B12 1-0 No 1000ug Common (Cyanocobal (Cyanocobal 2-10 S pirit rivera) rivera) 00:00: - [facility] Vitamin B12 Vitamin B12 1-0 No 1000ug Common (Cyanocobal (Cyanocobal 2-10 S pirit rivera) rivera) 00:00: - [facility] Vitamin B12 Vitamin B12 2021-0 No 1000ug Common (Cyanocobal (Cyanocobal 2-10 S pirit rivera) rivera) 00:00: - [facility] Vitamin B12 Vitamin B12 202-0 No 1000ug Common (Cyanocobal (Cyanocobal 2-10 S pirit rivera) rivera) 00:00: - [facility] Vitamin B12 Vitamin B12 1-0 No 1000ug Common (Cyanocobal (Cyanocobal 2-10 S pirit rivera) rivera) 00:00: - [facility] Vitamin B12 Vitamin B12 1-0 No 1000ug Common (Cyanocobal (Cyanocobal 2-10 S pirit rivera) rivera) 00:00: - [facility] Vitamin B12 Vitamin B12 1-0 No 1000ug Common (Cyanocobal (Cyanocobal 2-10 S pirit rivera) rivera) 00:00: - [facility] Vitamin B12 Vitamin B12 2020-0 No 1000ug Common (Cyanocobal (Cyanocobal 2-10 S pirit rivera) rivera) 00:00: - [facility] Vitamin B12 Vitamin B12 1-0 No 1000ug Common (Cyanocobal (Cyanocobal 2-10 S pirit rivera) rivera) 00:00: - [facility] Vitamin B12 Vitamin B12 2020-0 No 1000ug Common (Cyanocobal (Cyanocobal 2-10 S pirit rivera) rivera) 00:00: - [facility] Vitamin B12 Vitamin B12 2020-0 No 1000ug Common (Cyanocobal (Cyanocobal 2-10 S pirit rivera) rivera) 00:00: - [facility] Vitamin B12 Vitamin B12 1-0 No 1000ug Common (Cyanocobal (Cyanocobal 2-10 S pirit rivera) rivera) 00:00: - [facility] Vitamin B12 Vitamin B12 2021-0 No 1000ug Common (Cyanocobal (Cyanocobal 2-10 S pirit rivera) rivera) 00:00: - [facility] Vitamin B12 Vitamin B12 1-0 No 1000ug Common (Cyanocobal (Cyanocobal 2-10 S pirit rivera) rivera) 00:00: - [facility] Vitamin B12 Vitamin B12 2021-0 No 1000ug Common (Cyanocobal (Cyanocobal 2-10 S pirit rivera) rivera) 00:00: - [facility] Vitamin B12 Vitamin B12 2021-0 No 1000ug Common (Cyanocobal (Cyanocobal 2-10 S pirit rivera) rivera) 00:00: - [facility] Vitamin B12 Vitamin B12 2021-0 No 1000ug Common (Cyanocobal (Cyanocobal 2-10 S pirit rivera) rivera) 00:00: - [facility] Vitamin B12 Vitamin B12 2021-0 No 1000ug Common (Cyanocobal (Cyanocobal 2-10 S pirit rivera) rivera) 00:00: - [facility] Vitamin B12 Vitamin B12 2021-0 No 1000ug Common (Cyanocobal (Cyanocobal 2-10 S pirit rivera) rivera) 00:00: - [facility] Vitamin B12 Vitamin B12 1-0 No 1000ug Common (Cyanocobal (Cyanocobal 2-10 S pirit rivera) rivera) 00:00: - [facility] Vitamin B12 Vitamin B12 1-0 No 1000ug Common (Cyanocobal (Cyanocobal 2-10 S pirit rivera) rivera) 00:00: - [facility] Vitamin B12 Vitamin B12 1-0 No 1000ug Common (Cyanocobal (Cyanocobal 2-10 S pirit rivera) rivera) 00:00: - [facility] Vitamin B12 Vitamin B12 1-0 No 1000ug Common (Cyanocobal (Cyanocobal 2-10 S pirit rivera) rivera) 00:00: - [facility] Vitamin B12 Vitamin B12 1-0 No 1000ug Common (Cyanocobal (Cyanocobal 2-10 S pirit rivera) rivera) 00:00: - [facility] Vitamin B12 Vitamin B12 2021-0 No 1000ug Common (Cyanocobal (Cyanocobal 2-03 S pirit rivera) rivera) 00:00: - [facility] Vitamin B12 Vitamin B12 2021-0 No 1000ug Common (Cyanocobal (Cyanocobal 2-03 S pirit rivera) rivera) 00:00: - [facility] Vitamin B12 Vitamin B12 2021-0 No 1000ug Common (Cyanocobal (Cyanocobal 2-03 S pirit rivera) rivera) 00:00: - [facility] Vitamin B12 Vitamin B12 2021-0 No 1000ug Common (Cyanocobal (Cyanocobal 2-03 S pirit rivera) rivera) 00:00: - [facility] Vitamin B12 Vitamin B12 2021-0 No 1000ug Common (Cyanocobal (Cyanocobal 2-03 S pirit rivera) rivera) 00:00: - [facility] Vitamin B12 Vitamin B12 2021-0 No 1000ug Common (Cyanocobal (Cyanocobal 2-03 S pirit rivera) rivera) 00:00: - [facility] Vitamin B12 Vitamin B12 1-0 No 1000ug Common (Cyanocobal (Cyanocobal 2-03 S pirit rivera) rivera) 00:00: - [facility] Vitamin B12 Vitamin B12 2020-0 No 1000ug Common (Cyanocobal (Cyanocobal 2-03 S pirit rivera) rivera) 00:00: - [facility] Vitamin B12 Vitamin B12 1-0 No 1000ug Common (Cyanocobal (Cyanocobal 2-03 S pirit rivera) rivera) 00:00: - [facility] Vitamin B12 Vitamin B12 1-0 No 1000ug Common (Cyanocobal (Cyanocobal 2-03 S pirit rivera) rivera) 00:00: - [facility] Vitamin B12 Vitamin B12 1-0 No 1000ug Common (Cyanocobal (Cyanocobal 2-03 S pirit rivera) rivera) 00:00: - [facility] Vitamin B12 Vitamin B12 1-0 No 1000ug Common (Cyanocobal (Cyanocobal 2-03 S pirit rivera) rivera) 00:00: - [facility] Vitamin B12 Vitamin B12 2021-0 No 1000ug Common (Cyanocobal (Cyanocobal 2-03 S pirit rivera) rivera) 00:00: - [facility] Vitamin B12 Vitamin B12 2021-0 No 1000ug Common (Cyanocobal (Cyanocobal 2-03 S pirit rivera) rivera) 00:00: - [facility] Vitamin B12 Vitamin B12 2021-0 No 1000ug Common (Cyanocobal (Cyanocobal 2-03 S pirit rivera) rivera) 00:00: - [facility] Vitamin B12 Vitamin B12 2021-0 No 1000ug Common (Cyanocobal (Cyanocobal 2-03 S pirit rivera) rivera) 00:00: - [facility] Vitamin B12 Vitamin B12 2021-0 No 1000ug Common (Cyanocobal (Cyanocobal 2-03 S pirit rivera) rivera) 00:00: - [facility] Vitamin B12 Vitamin B12 2021-0 No 1000ug Common (Cyanocobal (Cyanocobal 2-03 S pirit rivera) rivera) 00:00: - [facility] Vitamin B12 Vitamin B12 2020-0 No 1000ug Common (Cyanocobal (Cyanocobal 2-03 S pirit rivera) rivera) 00:00: - [facility] Vitamin B12 Vitamin B12 2020-0 No 1000ug Common (Cyanocobal (Cyanocobal 2-03 S pirit rivera) rivera) 00:00: - [facility] Vitamin B12 Vitamin B12 2020-0 No 1000ug Common (Cyanocobal (Cyanocobal 2-03 S pirit rivera) rivera) 00:00: - [facility] Vitamin B12 Vitamin B12 2020-0 No 1000ug Common (Cyanocobal (Cyanocobal 2-03 S pirit rivera) rivera) 00:00: - [facility] Vitamin B12 Vitamin B12 1-0 No 1000ug Common (Cyanocobal (Cyanocobal 2-03 S pirit rivera) rivera) 00:00: - [facility] Vitamin B12 Vitamin B12 1-0 No 1000ug Common (Cyanocobal (Cyanocobal 2-03 S pirit rivera) rivera) 00:00: - [facility] Vitamin B12 Vitamin B12 2021-0 No 1000ug Common (Cyanocobal (Cyanocobal 2-03 S pirit rivera) rivera) 00:00: - [facility] Vitamin B12 Vitamin B12 2021-0 No 1000ug Common (Cyanocobal (Cyanocobal 2-03 S pirit rivera) rivera) 00:00: - [facility] Vitamin B12 Vitamin B12 2021-0 No 1000ug Common (Cyanocobal (Cyanocobal 2-03 S pirit rivera) rivera) 00:00: - [facility] Vitamin B12 Vitamin B12 2021-0 No 1000ug Common (Cyanocobal (Cyanocobal 2-03 S pirit rivera) rivera) 00:00: - [facility] Vitamin B12 Vitamin B12 2020-0 No 1000ug Common (Cyanocobal (Cyanocobal 2-03 S pirit rivera) rivera) 00:00: - [facility] Vitamin B12 Vitamin B12 2020-0 No 1000ug Common (Cyanocobal (Cyanocobal 2-03 S pirit rivera) rivera) 00:00: - [facility] Vitamin B12 Vitamin B12 2020-0 No 1000ug Common (Cyanocobal (Cyanocobal 2-03 S pirit rivera) rivera) 00:00: - [facility] Vitamin B12 Vitamin B12 2020-0 No 1000ug Common (Cyanocobal (Cyanocobal 2-03 S pirit rivera) rivera) 00:00: - [facility] Vitamin B12 Vitamin B12 2020-0 No 1000ug Common (Cyanocobal (Cyanocobal 2-03 S pirit rivera) rivera) 00:00: - [facility] Vitamin B12 Vitamin B12 2020-0 No 1000ug Common (Cyanocobal (Cyanocobal 2-03 S pirit rivera) rivera) 00:00: - [facility] Vitamin B12 Vitamin B12 2020-0 No 1000ug Common (Cyanocobal (Cyanocobal 2-03 S pirit rivera) rivera) 00:00: - [facility] Vitamin B12 Vitamin B12 2020-0 No 1000ug Common (Cyanocobal (Cyanocobal 2-03 S pirit rivera) rivera) 00:00: - [facility] Vitamin B12 Vitamin B12 1-0 No 1000ug Common (Cyanocobal (Cyanocobal 2-03 S pirit rivera) rivera) 00:00: - [facility] Vitamin B12 Vitamin B12 2021-0 No 1000ug Common (Cyanocobal (Cyanocobal 2-03 S pirit rivera) rivera) 00:00: - [facility] Vitamin B12 Vitamin B12 2021-0 No 1000ug Common (Cyanocobal (Cyanocobal 1-14 S pirit rivera) rivera) 00:00: - [facility] Vitamin B12 Vitamin B12 2020-0 No 1000ug Common (Cyanocobal (Cyanocobal 1-14 S pirit rivera) rivera) 00:00: - [facility] Vitamin B12 Vitamin B12 2020-0 No 1000ug Common (Cyanocobal (Cyanocobal 1-14 S pirit rivera) rivera) 00:00: - [facility] Vitamin B12 Vitamin B12 2020-0 No 1000ug Common (Cyanocobal (Cyanocobal 1-14 S pirit rivera) rivera) 00:00: - [facility] Vitamin B12 Vitamin B12 2020-0 No 1000ug Common (Cyanocobal (Cyanocobal 1-14 S pirit rivera) rivera) 00:00: - [facility] Vitamin B12 Vitamin B12 2020-0 No 1000ug Common (Cyanocobal (Cyanocobal 1-14 S pirit rivera) rivera) 00:00: - [facility] Vitamin B12 Vitamin B12 2020-0 No 1000ug Common (Cyanocobal (Cyanocobal 1-14 S pirit rivera) rivera) 00:00: - [facility] Vitamin B12 Vitamin B12 2020-0 No 1000ug Common (Cyanocobal (Cyanocobal 1-14 S pirit rivera) rivera) 00:00: - [facility] Vitamin B12 Vitamin B12 2020-0 No 1000ug Common (Cyanocobal (Cyanocobal 1-14 S pirit rivera) rivera) 00:00: - [facility] Vitamin B12 Vitamin B12 2020-0 No 1000ug Common (Cyanocobal (Cyanocobal 1-14 S pirit rivera) rivera) 00:00: - [facility] Vitamin B12 Vitamin B12 1-0 No 1000ug Common (Cyanocobal (Cyanocobal 1-14 S pirit rivera) rivera) 00:00: - [facility] Vitamin B12 Vitamin B12 2020-0 No 1000ug Common (Cyanocobal (Cyanocobal 1-14 S pirit rivera) rivera) 00:00: - [facility] Vitamin B12 Vitamin B12 2021-0 No 1000ug Common (Cyanocobal (Cyanocobal 1-14 S pirit rivera) rivera) 00:00: - [facility] Vitamin B12 Vitamin B12 2020-0 No 1000ug Common (Cyanocobal (Cyanocobal 1-14 S pirit rivera) rivera) 00:00: - [facility] Vitamin B12 Vitamin B12 2020-0 No 1000ug Common (Cyanocobal (Cyanocobal 1-14 S pirit rivera) rivera) 00:00: - [facility] Vitamin B12 Vitamin B12 2020-0 No 1000ug Common (Cyanocobal (Cyanocobal 1-14 S pirit rivera) rivera) 00:00: - [facility] Vitamin B12 Vitamin B12 2020-0 No 1000ug Common (Cyanocobal (Cyanocobal 1-14 S pirit rivera) rivera) 00:00: - [facility] Vitamin B12 Vitamin B12 2020-0 No 1000ug Common (Cyanocobal (Cyanocobal 1-14 S pirit rivera) rivera) 00:00: - [facility] Vitamin B12 Vitamin B12 2020-0 No 1000ug Common (Cyanocobal (Cyanocobal 1-14 S pirit rivera) rivera) 00:00: - [facility] Vitamin B12 Vitamin B12 2020-0 No 1000ug Common (Cyanocobal (Cyanocobal 1-14 S pirit rivera) rivera) 00:00: - [facility] Vitamin B12 Vitamin B12 2020-0 No 1000ug Common (Cyanocobal (Cyanocobal 1-14 S pirit rivera) rivera) 00:00: - [facility] Vitamin B12 Vitamin B12 2020-0 No 1000ug Common (Cyanocobal (Cyanocobal 1-14 S pirit rivera) rivera) 00:00: - [facility] Vitamin B12 Vitamin B12 1-0 No 1000ug Common (Cyanocobal (Cyanocobal 1-14 S pirit rivera) rivera) 00:00: - [facility] Vitamin B12 Vitamin B12 2020-0 No 1000ug Common (Cyanocobal (Cyanocobal 1-14 S pirit rivera) rivera) 00:00: - [facility] Vitamin B12 Vitamin B12 2020-0 No 1000ug Common (Cyanocobal (Cyanocobal 1-14 S pirit rivera) rivera) 00:00: - [facility] Vitamin B12 Vitamin B12 2020-0 No 1000ug Common (Cyanocobal (Cyanocobal 1-14 S pirit rivera) rivera) 00:00: - [facility] Vitamin B12 Vitamin B12 2020-0 No 1000ug Common (Cyanocobal (Cyanocobal 1-14 S pirit rivera) rivera) 00:00: - [facility] Vitamin B12 Vitamin B12 2020-0 No 1000ug Common (Cyanocobal (Cyanocobal 1-14 S pirit rivera) rivera) 00:00: - [facility] Vitamin B12 Vitamin B12 2020-0 No 1000ug Common (Cyanocobal (Cyanocobal 1-14 S pirit rivera) rivera) 00:00: - [facility] Vitamin B12 Vitamin B12 2020-0 No 1000ug Common (Cyanocobal (Cyanocobal 1-14 S pirit rivera) rivera) 00:00: - [facility] Vitamin B12 Vitamin B12 2020-0 No 1000ug Common (Cyanocobal (Cyanocobal 1-14 S pirit rivera) rivera) 00:00: - [facility] Vitamin B12 Vitamin B12 2020-0 No 1000ug Common (Cyanocobal (Cyanocobal 1-14 S pirit rivera) rivera) 00:00: - [facility] Vitamin B12 Vitamin B12 2020-0 No 1000ug Common (Cyanocobal (Cyanocobal 1-14 S pirit rivera) rivera) 00:00: - [facility] Vitamin B12 Vitamin B12 2020-0 No 1000ug Common (Cyanocobal (Cyanocobal 1-14 S pirit rivera) rivera) 00:00: - [facility] Vitamin B12 Vitamin B12 2020-0 No 1000ug Common (Cyanocobal (Cyanocobal 1-14 S pirit rivera) rivera) 00:00: - [facility] Vitamin B12 Vitamin B12 2020-0 No 1000ug Common (Cyanocobal (Cyanocobal 1-14 S pirit rivera) rivera) 00:00: - [facility] Vitamin B12 Vitamin B12 2020-0 No 1000ug Common (Cyanocobal (Cyanocobal 1-14 S pirit rivera) rivera) 00:00: - [facility] Vitamin B12 Vitamin B12 2020-0 No 1000ug Common (Cyanocobal (Cyanocobal 1-14 S pirit rivera) rivera) 00:00: - [facility] Vitamin B12 Vitamin B12 2020-1 No 1000ug Common (Cyanocobal (Cyanocobal 2-30 S pirit rivera) rivera) 00:00: - [facility] Vitamin B12 Vitamin B12 2020-1 No 1000ug Common (Cyanocobal (Cyanocobal 2-30 S pirit rivera) rivera) 00:00: - [facility] Vitamin B12 Vitamin B12 2020-1 No 1000ug Common (Cyanocobal (Cyanocobal 2-30 S pirit rivera) rivera) 00:00: - [facility] Vitamin B12 Vitamin B12 2020-1 No 1000ug Common (Cyanocobal (Cyanocobal 2-30 S pirit rivera) rivera) 00:00: - [facility] Vitamin B12 Vitamin B12 2020-1 No 1000ug Common (Cyanocobal (Cyanocobal 2-30 S pirit rivera) rivera) 00:00: - [facility] Vitamin B12 Vitamin B12 2020-1 No 1000ug Common (Cyanocobal (Cyanocobal 2-30 S pirit rivera) rivera) 00:00: - [facility] Vitamin B12 Vitamin B12 2020-1 No 1000ug Common (Cyanocobal (Cyanocobal 2-30 S pirit rivera) rivera) 00:00: - [facility] Vitamin B12 Vitamin B12 2020-1 No 1000ug Common (Cyanocobal (Cyanocobal 2-30 S pirit rivera) rivera) 00:00: - [facility] Vitamin B12 Vitamin B12 2020-1 No 1000ug Common (Cyanocobal (Cyanocobal 2-30 S pirit rivera) rivera) 00:00: - [facility] Vitamin B12 Vitamin B12 2020-1 No 1000ug Common (Cyanocobal (Cyanocobal 2-30 S pirit rivera) rivera) 00:00: - [facility] Vitamin B12 Vitamin B12 2020-1 No 1000ug Common (Cyanocobal (Cyanocobal 2-30 S pirit rivera) rivera) 00:00: - [facility] Vitamin B12 Vitamin B12 2020-1 No 1000ug Common (Cyanocobal (Cyanocobal 2-30 S pirit rivera) rivera) 00:00: - [facility] Vitamin B12 Vitamin B12 2020-1 No 1000ug Common (Cyanocobal (Cyanocobal 2-30 S pirit rivera) rivera) 00:00: - [facility] Vitamin B12 Vitamin B12 2020-1 No 1000ug Common (Cyanocobal (Cyanocobal 2-30 S pirit rivera) rivera) 00:00: - [facility] Vitamin B12 Vitamin B12 2020-1 No 1000ug Common (Cyanocobal (Cyanocobal 2-30 S pirit rivera) rivera) 00:00: - [facility] Vitamin B12 Vitamin B12 2020-1 No 1000ug Common (Cyanocobal (Cyanocobal 2-30 S pirit rivera) rivera) 00:00: - [facility] Vitamin B12 Vitamin B12 2020-1 No 1000ug Common (Cyanocobal (Cyanocobal 2-30 S pirit rivera) rivera) 00:00: - [facility] Vitamin B12 Vitamin B12 2020-1 No 1000ug Common (Cyanocobal (Cyanocobal 2-30 S pirit rivera) rivera) 00:00: - [facility] Vitamin B12 Vitamin B12 2020-1 No 1000ug Common (Cyanocobal (Cyanocobal 2-30 S pirit rivera) rivera) 00:00: - [facility] Vitamin B12 Vitamin B12 2020-1 No 1000ug Common (Cyanocobal (Cyanocobal 2-30 S pirit rivera) rivera) 00:00: - [facility] Vitamin B12 Vitamin B12 2020-1 No 1000ug Common (Cyanocobal (Cyanocobal 2-30 S pirit rivera) rivera) 00:00: - [facility] Vitamin B12 Vitamin B12 2020-1 No 1000ug Common (Cyanocobal (Cyanocobal 2-30 S pirit rivera) rivera) 00:00: - [facility] Vitamin B12 Vitamin B12 2020-1 No 1000ug Common (Cyanocobal (Cyanocobal 2-30 S pirit rivera) rivera) 00:00: - [facility] Vitamin B12 Vitamin B12 2020-1 No 1000ug Common (Cyanocobal (Cyanocobal 2-30 S pirit rivera) rivera) 00:00: - [facility] Vitamin B12 Vitamin B12 2020-1 No 1000ug Common (Cyanocobal (Cyanocobal 2-30 S pirit rivera) rivera) 00:00: - [facility] Vitamin B12 Vitamin B12 2020-1 No 1000ug Common (Cyanocobal (Cyanocobal 2-30 S pirit rivera) rivera) 00:00: - [facility] Vitamin B12 Vitamin B12 2020-1 No 1000ug Common (Cyanocobal (Cyanocobal 2-30 S pirit rivera) rivera) 00:00: - [facility] Vitamin B12 Vitamin B12 2020-1 No 1000ug Common (Cyanocobal (Cyanocobal 2-30 S pirit rivera) rivera) 00:00: - [facility] Vitamin B12 Vitamin B12 2020-1 No 1000ug Common (Cyanocobal (Cyanocobal 2-30 S pirit rivera) rivera) 00:00: - [facility] Vitamin B12 Vitamin B12 2020-1 No 1000ug Common (Cyanocobal (Cyanocobal 2-30 S pirit rivera) rivera) 00:00: - [facility] Vitamin B12 Vitamin B12 2020-1 No 1000ug Common (Cyanocobal (Cyanocobal 2-30 S pirit rivera) rivera) 00:00: - [facility] Vitamin B12 Vitamin B12 2020-1 No 1000ug Common (Cyanocobal (Cyanocobal 2-30 S pirit rivera) rivera) 00:00: - [facility] Vitamin B12 Vitamin B12 2020-1 No 1000ug Common (Cyanocobal (Cyanocobal 2-30 S pirit rivera) rivera) 00:00: - [facility] Vitamin B12 Vitamin B12 2020-1 No 1000ug Common (Cyanocobal (Cyanocobal 2-30 S pirit rivera) rivera) 00:00: - [facility] Vitamin B12 Vitamin B12 2020-1 No 1000ug Common (Cyanocobal (Cyanocobal 2-30 S pirit rivera) rivera) 00:00: - [facility] Vitamin B12 Vitamin B12 2020-1 No 1000ug Common (Cyanocobal (Cyanocobal 2-30 S pirit rivera) rivera) 00:00: - [facility] Vitamin B12 Vitamin B12 2020-1 No 1000ug Common (Cyanocobal (Cyanocobal 2-30 S pirit rivera) rivera) 00:00: - [facility] Vitamin B12 Vitamin B12 2020-1 No 1000ug Common (Cyanocobal (Cyanocobal 2-30 S pirit rivera) rivera) 00:00: - [facility] Vitamin B12 Vitamin B12 2020-1 No 1000ug Common (Cyanocobal (Cyanocobal 2-15 S pirit rivera) rivera) 00:00: - [facility] Vitamin B12 Vitamin B12 2020-1 No 1000ug Common (Cyanocobal (Cyanocobal 2-15 S pirit rivera) rivera) 00:00: - [facility] Vitamin B12 Vitamin B12 2020-1 No 1000ug Common (Cyanocobal (Cyanocobal 2-15 S pirit rivera) rivera) 00:00: - [facility] Vitamin B12 Vitamin B12 2020-1 No 1000ug Common (Cyanocobal (Cyanocobal 2-15 S pirit rivera) rivera) 00:00: - [facility] Vitamin B12 Vitamin B12 2020-1 No 1000ug Common (Cyanocobal (Cyanocobal 2-15 S pirit rivera) rivera) 00:00: - [facility] Vitamin B12 Vitamin B12 2020-1 No 1000ug Common (Cyanocobal (Cyanocobal 2-15 S pirit rivera) rivera) 00:00: - [facility] Vitamin B12 Vitamin B12 2020-1 No 1000ug Common (Cyanocobal (Cyanocobal 2-15 S pirit rivera) rivera) 00:00: - [facility] Vitamin B12 Vitamin B12 2020-1 No 1000ug Common (Cyanocobal (Cyanocobal 2-15 S pirit rivera) rivera) 00:00: - [facility] Vitamin B12 Vitamin B12 2020-1 No 1000ug Common (Cyanocobal (Cyanocobal 2-15 S pirit rivera) rivera) 00:00: - [facility] Vitamin B12 Vitamin B12 2020-1 No 1000ug Common (Cyanocobal (Cyanocobal 2-15 S pirit rivera) rivera) 00:00: - [facility] Vitamin B12 Vitamin B12 2020-1 No 1000ug Common (Cyanocobal (Cyanocobal 2-15 S pirit rivera) rivera) 00:00: - [facility] Vitamin B12 Vitamin B12 2020-1 No 1000ug Common (Cyanocobal (Cyanocobal 2-15 S pirit rivera) rivera) 00:00: - [facility] Vitamin B12 Vitamin B12 2020-1 No 1000ug Common (Cyanocobal (Cyanocobal 2-15 S pirit rivera) rivera) 00:00: - [facility] Vitamin B12 Vitamin B12 2020-1 No 1000ug Common (Cyanocobal (Cyanocobal 2-15 S pirit rivera) rivera) 00:00: - [facility] Vitamin B12 Vitamin B12 2020-1 No 1000ug Common (Cyanocobal (Cyanocobal 2-15 S pirit rivera) rivera) 00:00: - [facility] Vitamin B12 Vitamin B12 2020-1 No 1000ug Common (Cyanocobal (Cyanocobal 2-15 S pirit rivera) rivera) 00:00: - [facility] Vitamin B12 Vitamin B12 2020-1 No 1000ug Common (Cyanocobal (Cyanocobal 2-15 S pirit rivera) rivera) 00:00: - [facility] Vitamin B12 Vitamin B12 2020-1 No 1000ug Common (Cyanocobal (Cyanocobal 2-15 S pirit rivera) rivera) 00:00: - [facility] Vitamin B12 Vitamin B12 2020-1 No 1000ug Common (Cyanocobal (Cyanocobal 2-15 S pirit rivera) rivera) 00:00: - [facility] Vitamin B12 Vitamin B12 2020-1 No 1000ug Common (Cyanocobal (Cyanocobal 2-15 S pirit rivera) rivera) 00:00: - [facility] Vitamin B12 Vitamin B12 2020-1 No 1000ug Common (Cyanocobal (Cyanocobal 2-15 S pirit rivera) rivera) 00:00: - [facility] Vitamin B12 Vitamin B12 2020-1 No 1000ug Common (Cyanocobal (Cyanocobal 2-15 S pirit rivera) rivera) 00:00: - [facility] Vitamin B12 Vitamin B12 2020-1 No 1000ug Common (Cyanocobal (Cyanocobal 2-15 S pirit rivera) rivera) 00:00: - [facility] Vitamin B12 Vitamin B12 2020-1 No 1000ug Common (Cyanocobal (Cyanocobal 2-15 S pirit rivera) rivera) 00:00: - [facility] Vitamin B12 Vitamin B12 2020-1 No 1000ug Common (Cyanocobal (Cyanocobal 2-15 S pirit rivera) rivera) 00:00: - [facility] Vitamin B12 Vitamin B12 2020-1 No 1000ug Common (Cyanocobal (Cyanocobal 2-15 S pirit rivera) rivera) 00:00: - [facility] Vitamin B12 Vitamin B12 2020-1 No 1000ug Common (Cyanocobal (Cyanocobal 2-15 S pirit rivera) rivera) 00:00: - [facility] Vitamin B12 Vitamin B12 2020-1 No 1000ug Common (Cyanocobal (Cyanocobal 2-15 S pirit rivera) rivera) 00:00: - [facility] Vitamin B12 Vitamin B12 2020-1 No 1000ug Common (Cyanocobal (Cyanocobal 2-15 S pirit rivera) rivera) 00:00: - [facility] Vitamin B12 Vitamin B12 2020-1 No 1000ug Common (Cyanocobal (Cyanocobal 2-15 S pirit rivera) rivera) 00:00: - [facility] Vitamin B12 Vitamin B12 2020-1 No 1000ug Common (Cyanocobal (Cyanocobal 2-15 S pirit rivera) rivera) 00:00: - [facility] Vitamin B12 Vitamin B12 2020-1 No 1000ug Common (Cyanocobal (Cyanocobal 2-15 S pirit rivera) rivera) 00:00: - [facility] Vitamin B12 Vitamin B12 2020-1 No 1000ug Common (Cyanocobal (Cyanocobal 2-15 S pirit rivera) rivera) 00:00: - [facility] Vitamin B12 Vitamin B12 2020-1 No 1000ug Common (Cyanocobal (Cyanocobal 2-15 S pirit rivera) rivera) 00:00: - [facility] Vitamin B12 Vitamin B12 2020-1 No 1000ug Common (Cyanocobal (Cyanocobal 2-15 S pirit rivera) rivera) 00:00: - [facility] Vitamin B12 Vitamin B12 2020-1 No 1000ug Common (Cyanocobal (Cyanocobal 2-15 S pirit rivera) rivera) 00:00: - [facility] Vitamin B12 Vitamin B12 2020-1 No 1000ug Common (Cyanocobal (Cyanocobal 2-15 S pirit rivera) rivera) 00:00: - [facility] Vitamin B12 Vitamin B12 2020-1 No 1000ug Common (Cyanocobal (Cyanocobal 2-15 S pirit rivera) rivera) 00:00: - [facility] Vitamin B12 Vitamin B12 2020-1 No 1000ug Common (Cyanocobal (Cyanocobal 2-01 S pirit rivera) rivera) 00:00: - [facility] Vitamin B12 Vitamin B12 2020-1 No 1000ug Common (Cyanocobal (Cyanocobal 2-01 S pirit rivera) rivera) 00:00: - [facility] Vitamin B12 Vitamin B12 2020-1 No 1000ug Common (Cyanocobal (Cyanocobal 2-01 S pirit rivera) rivera) 00:00: - [facility] Vitamin B12 Vitamin B12 2020-1 No 1000ug Common (Cyanocobal (Cyanocobal 2-01 S pirit rivera) rivera) 00:00: - [facility] Vitamin B12 Vitamin B12 2020-1 No 1000ug Common (Cyanocobal (Cyanocobal 2-01 S pirit rivera) rivera) 00:00: - [facility] Vitamin B12 Vitamin B12 2020-1 No 1000ug Common (Cyanocobal (Cyanocobal 2-01 S pirit rivera) rivera) 00:00: - [facility] Vitamin B12 Vitamin B12 2020-1 No 1000ug Common (Cyanocobal (Cyanocobal 2-01 S pirit rivera) rivera) 00:00: - [facility] Vitamin B12 Vitamin B12 2020-1 No 1000ug Common (Cyanocobal (Cyanocobal 2-01 S pirit rivera) rivera) 00:00: - [facility] Vitamin B12 Vitamin B12 2020-1 No 1000ug Common (Cyanocobal (Cyanocobal 2-01 S pirit rivera) rivera) 00:00: - [facility] Vitamin B12 Vitamin B12 2020-1 No 1000ug Common (Cyanocobal (Cyanocobal 2-01 S pirit rivera) rivera) 00:00: - [facility] Vitamin B12 Vitamin B12 2020-1 No 1000ug Common (Cyanocobal (Cyanocobal 2-01 S pirit rivera) rivera) 00:00: - [facility] Vitamin B12 Vitamin B12 2020-1 No 1000ug Common (Cyanocobal (Cyanocobal 2-01 S pirit rivera) rivera) 00:00: - [facility] Vitamin B12 Vitamin B12 2020-1 No 1000ug Common (Cyanocobal (Cyanocobal 2-01 S pirit rivera) rivera) 00:00: - [facility] Vitamin B12 Vitamin B12 2020-1 No 1000ug Common (Cyanocobal (Cyanocobal 2-01 S pirit rivera) rivera) 00:00: - [facility] Vitamin B12 Vitamin B12 2020-1 No 1000ug Common (Cyanocobal (Cyanocobal 2-01 S pirit rivera) rivera) 00:00: - [facility] Vitamin B12 Vitamin B12 2020-1 No 1000ug Common (Cyanocobal (Cyanocobal 2-01 S pirit rivera) rivera) 00:00: - [facility] Vitamin B12 Vitamin B12 2020-1 No 1000ug Common (Cyanocobal (Cyanocobal 2-01 S pirit rivera) rivera) 00:00: - [facility] Vitamin B12 Vitamin B12 2020-1 No 1000ug Common (Cyanocobal (Cyanocobal 2-01 S pirit rivera) rivera) 00:00: - [facility] Vitamin B12 Vitamin B12 2020-1 No 1000ug Common (Cyanocobal (Cyanocobal 2-01 S pirit rivera) rivera) 00:00: - [facility] Vitamin B12 Vitamin B12 2020-1 No 1000ug Common (Cyanocobal (Cyanocobal 2-01 S pirit rivera) rivera) 00:00: - [facility] Vitamin B12 Vitamin B12 2020-1 No 1000ug Common (Cyanocobal (Cyanocobal 2-01 S pirit rivera) rivera) 00:00: - [facility] Vitamin B12 Vitamin B12 2020-1 No 1000ug Common (Cyanocobal (Cyanocobal 2-01 S pirit rivera) rivera) 00:00: - [facility] Vitamin B12 Vitamin B12 2020-1 No 1000ug Common (Cyanocobal (Cyanocobal 2-01 S pirit rivera) rivera) 00:00: - [facility] Vitamin B12 Vitamin B12 2020-1 No 1000ug Common (Cyanocobal (Cyanocobal 2-01 S pirit rivera) rivera) 00:00: - [facility] Vitamin B12 Vitamin B12 2020-1 No 1000ug Common (Cyanocobal (Cyanocobal 2-01 S pirit rivera) rivera) 00:00: - [facility] Vitamin B12 Vitamin B12 2020-1 No 1000ug Common (Cyanocobal (Cyanocobal 2-01 S pirit rivera) rivera) 00:00: - [facility] Vitamin B12 Vitamin B12 2020-1 No 1000ug Common (Cyanocobal (Cyanocobal 2-01 S pirit rivera) rivera) 00:00: - [facility] Vitamin B12 Vitamin B12 2020-1 No 1000ug Common (Cyanocobal (Cyanocobal 2-01 S pirit rivera) rivera) 00:00: - [facility] Vitamin B12 Vitamin B12 2020-1 No 1000ug Common (Cyanocobal (Cyanocobal 2-01 S pirit rivera) rivera) 00:00: - [facility] Vitamin B12 Vitamin B12 2020-1 No 1000ug Common (Cyanocobal (Cyanocobal 2-01 S pirit rivera) rivera) 00:00: - [facility] Vitamin B12 Vitamin B12 2020-1 No 1000ug Common (Cyanocobal (Cyanocobal 2-01 S pirit rivera) rivera) 00:00: - [facility] Vitamin B12 Vitamin B12 2020-1 No 1000ug Common (Cyanocobal (Cyanocobal 2-01 S pirit rivera) rivera) 00:00: - [facility] Vitamin B12 Vitamin B12 2020-1 No 1000ug Common (Cyanocobal (Cyanocobal 2-01 S pirit rivera) rivera) 00:00: - [facility] Vitamin B12 Vitamin B12 2020- No 1000ug Common (Cyanocobal (Cyanocobal 2-01 S pirit rivera) rivera) 00:00: - [facility] Vitamin B12 Vitamin B12 2020-1 No 1000ug Common (Cyanocobal (Cyanocobal 2-01 S pirit rivera) rivera) 00:00: - [facility] Vitamin B12 Vitamin B12 2020- No 1000ug Common (Cyanocobal (Cyanocobal 2-01 S pirit rivera) rivera) 00:00: - [facility] Vitamin B12 Vitamin B12 2020- No 1000ug Common (Cyanocobal (Cyanocobal 2-01 S pirit rivera) rivera) 00:00: - [facility] Vitamin B12 Vitamin B12 2020- No 1000ug Common (Cyanocobal (Cyanocobal 2-01 S pirit rivera) rivera) 00:00: - [facility] Bupivicaine Bupivicaine 2020- No Common [place] Silverthorne 1-23 Spirit 00:00: - [facility] Kenalog Kenalog 2020- No 40mg Common (Triamcinol (Triamcinol 1-23 S pirit one) one) 00:00: - [facility] Bupivicaine Bupivicaine 2020- No Common [place] Silver[place]orne 1-23 Spirit 00:00: - [facility] Kenalog Kenalog 2020- No 40mg Common (Triamcinol (Triamcinol 1-23 S pirit one) one) 00:00: - [facility] Bupivicaine Bupivicaine 2020-1 No Common [place] Silver[place] 1-23 Spirit 00:00: - [facility] Kenalog Kenalog 2020- No 40mg Common (Triamcinol (Triamcinol 1-23 S pirit one) one) 00:00: - [facility] Bupivicaine Bupivicaine 2020-1 No Common [place] 1-23 Spirit 00:00: - [facility] Kenalog Kenalog 2020-1 No 40mg Common (Triamcinol (Triamcinol 1-23 S pirit one) one) 00:00: - [facility] Kenalog Kenalog 2020- No 40mg Common (Triamcinol (Triamcinol 1-23 S pirit one) one) 00:00: - [facility] Bupivicaine Bupivicaine 2020-1 No Common [place] 1-23 Spirit 00:00: - [facility] Bupivicaine Bupivicaine 2020- No 2.5mg Common [place] 1-23 Spirit 00:00: - [facility] Kenalog Kenalog 2019- No 40mg Common (Triamcinol (Triamcinol 1-23 S pirit one) one) 00:00: - [facility] Bupivicaine Bupivicaine 2020- No 2.5mg Common [place] 1-23 Spirit 00:00: - [facility] Kenalog Kenalog 2019- No 40mg Common (Triamcinol (Triamcinol 1-23 S pirit one) one) 00:00: - [facility] Bupivicaine Bupivicaine 2020-1 No 2.5mg Common [place] 1-23 Spirit 00:00: - [facility] Kenalog Kenalog 2020- No 40mg Common (Triamcinol (Triamcinol 1-23 S pirit one) one) 00:00: - [facility] Bupivicaine Bupivicaine 2020-1 No 2.5mg Common [place] 1-23 Spirit 00:00: - [facility] Kenalog Kenalog 2020- No 40mg Common (Triamcinol (Triamcinol 1-23 S pirit one) one) 00:00: - [facility] Kenalog Kenalog 2020- No 40mg Common (Triamcinol (Triamcinol 1-23 S pirit one) one) 00:00: - [facility] Bupivicaine Bupivicaine 2020-1 No 2.5mg Common [place] 1-23 Spirit 00:00: - [facility] Kenalog Kenalog 2020-1 No 40mg Common (Triamcinol (Triamcinol 1-23 S pirit one) one) 00:00: - [facility] Bupivicaine Bupivicaine 2020-1 No 2.5mg Common [place] 1-23 Spirit 00:00: - [facility] 00 [facility] Kenalog Kenalog 2020-1 No 40mg Common (Triamcinol (Triamcinol 1-23 S pirit one) one) 00:00: - [facility] Bupivicaine Bupivicaine 2020-1 No 2.5mg Common [place] 1-23 Spirit 00:00: - [facility] Kenalog Kenalog 2020- No 40mg Common (Triamcinol (Triamcinol 1-23 S pirit one) one) 00:00: - [facility] Bupivicaine Bupivicaine 2020-1 No 2.5mg Common [place] 1-23 Spirit 00:00: - [facility] Bupivicaine Bupivicaine 2020-1 No 2.5mg Common [place] 1-23 Spirit 00:00: - [facility] Kenalog Kenalog 2020-1 No 40mg Common (Triamcinol (Triamcinol 1-23 S pirit one) one) 00:00: - [facility] Bupivicaine Bupivicaine 2020-1 No 2.5mg Common [place] 1-23 Spirit 00:00: - [facility] Kenalog Kenalog 2020-1 No 40mg Common (Triamcinol (Triamcinol 1-23 S pirit one) one) 00:00: - [facility] Kenalog Kenalog 2020-1 No 40mg Common (Triamcinol (Triamcinol 1-23 S pirit one) one) 00:00: - [facility] Bupivicaine Bupivicaine 2020-1 No 2.5mg Common [place] 1-23 Spirit 00:00: - [facility] Kenalog Kenalog 2020-1 No 40mg Common (Triamcinol (Triamcinol 1-23 S pirit one) one) 00:00: - [facility] Bupivicaine Bupivicaine 2020-1 No 2.5mg Common [place] 1-23 Spirit 00:00: - [facility] Kenalog Kenalog 2020-1 No 40mg Common (Triamcinol (Triamcinol 1-23 S pirit one) one) 00:00: - [facility] Bupivicaine Bupivicaine 2020-1 No 2.5mg Common [place] 1-23 Spirit 00:00: - [facility] Kenalog Kenalog 2020-1 No 40mg Common (Triamcinol (Triamcinol 1-23 S pirit one) one) 00:00: - [facility] Bupivicaine Bupivicaine 2020-1 No 2.5mg Common [place] 1-23 Spirit 00:00: - [facility] Kenalog Kenalog 2020-1 No 40mg Common (Triamcinol (Triamcinol 1-23 S pirit one) one) 00:00: - [facility] Bupivicaine Bupivicaine 2020-1 No 2.5mg Common [place] 1-23 Spirit 00:00: - [facility] Kenalog Kenalog 2020-1 No 40mg Common (Triamcinol (Triamcinol 1-23 S pirit one) one) 00:00: - [facility] Bupivicaine Bupivicaine 2020-1 No 2.5mg Common [place] 1-23 Spirit 00:00: - [facility] Kenalog Kenalog 2020-1 No 40mg Common (Triamcinol (Triamcinol 1-23 S pirit one) one) 00:00: - [facility] Bupivicaine Bupivicaine 2020-1 No 2.5mg Common [place] 1-23 Spirit 00:00: - [facility] Kenalog Kenalog 2020-1 No 40mg Common (Triamcinol (Triamcinol 1-23 S pirit one) one) 00:00: - [facility] Bupivicaine Bupivicaine 2020-1 No 2.5mg Common [place] 1-23 Spirit 00:00: - [facility] Kenalog Kenalog 2020-1 No 40mg Common (Triamcinol (Triamcinol 1-23 S pirit one) one) 00:00: - [facility] Bupivicaine Bupivicaine 2020-1 No 2.5mg Common [place] 1-23 Spirit 00:00: - [facility] Kenalog Kenalog 2020- No 40mg Common (Triamcinol (Triamcinol 1-23 S pirit one) one) 00:00: - [facility] Bupivicaine Bupivicaine 2020-1 No 2.5mg Common [place] Silverthorne 1-23 Spirit 00:00: - [facility] Bupivicaine Bupivicaine 2020-1 No 2.5mg Common [place] 1-23 Spirit 00:00: - [facility] Kenalog Kenalog 2020- No 40mg Common (Triamcinol (Triamcinol 1-23 S pirit one) one) 00:00: - [facility] Kenalog Kenalog 2020- No 40mg Common (Triamcinol (Triamcinol 1-23 S pirit one) one) 00:00: - [facility] Bupivicaine Bupivicaine 2020-1 No 2.5mg Common [place] Silver[place] 1-23 Spirit 00:00: - [facility] Kenalog Kenalog 2020-1 No 40mg Common (Triamcinol (Triamcinol 1-23 S pirit one) one) 00:00: - [facility] Bupivicaine Bupivicaine 2020-1 No 2.5mg Common [place] 1-23 Spirit 00:00: - [facility] Kenalog Kenalog 2020-1 No 40mg Common (Triamcinol (Triamcinol 1-23 S pirit one) one) 00:00: - [facility] Bupivicaine Bupivicaine 2020-1 No 2.5mg Common [place] 1-23 Spirit 00:00: - [facility] Kenalog Kenalog 2020- No 40mg Common (Triamcinol (Triamcinol 1-23 S pirit one) one) 00:00: - [facility] Bupivicaine Bupivicaine 2020-1 No 2.5mg Common [place] 1-23 Spirit 00:00: - [facility] Kenalog Kenalog 2019- No 40mg Common (Triamcinol (Triamcinol 1-23 S pirit one) one) 00:00: - [facility] Bupivicaine Bupivicaine 2020-1 No 2.5mg Common [place] 1-23 Spirit 00:00: - [facility] Kenalog Kenalog 2019-1 No 40mg Common (Triamcinol (Triamcinol 1-23 S pirit one) one) 00:00: - [facility] Bupivicaine Bupivicaine 2020-1 No 2.5mg Common [place] 1-23 Spirit 00:00: - [facility] Kenalog Kenalog 2020- No 40mg Common (Triamcinol (Triamcinol 1-23 S pirit one) one) 00:00: - [facility] Bupivicaine Bupivicaine 2020-1 No 2.5mg Common [place] 1-23 Spirit 00:00: - [facility] Kenalog Kenalog 2020- No 40mg Common (Triamcinol (Triamcinol 1-23 S pirit one) one) 00:00: - [facility] Bupivicaine Bupivicaine 2020-1 No 2.5mg Common [place] 1-23 Spirit 00:00: - [facility] Kenalog Kenalog 2020-1 No 40mg Common (Triamcinol (Triamcinol 1-23 S pirit one) one) 00:00: - [facility] Bupivicaine Bupivicaine 2020-1 No 2.5mg Common [place] 1-23 Spirit 00:00: - [facility] Bupivicaine Bupivicaine 2020-1 No Common [place] 1-23 Spirit 00:00: - [facility] Kenalog Kenalog 2020-1 No 40mg Common (Triamcinol (Triamcinol 1-23 S pirit one) one) 00:00: - [facility] Kenalog Kenalog 2020-1 No 40mg Common (Triamcinol (Triamcinol 1-23 S pirit one) one) 00:00: - [facility] Bupivicaine Bupivicaine 2020-1 No Common [place] 1-23 Spirit 00:00: - [facility] Bupivicaine Bupivicaine 2020-1 No Common [place] 1-23 Spirit 00:00: - [facility] Kenalog Kenalog 2020-1 No 40mg Common (Triamcinol (Triamcinol 1-23 S pirit one) one) 00:00: - [facility] Vitamin B12 Vitamin B12 2020-1 No 1000ug Common (Cyanocobal (Cyanocobal 1-17 S pirit rivera) rivera) 00:00: - [facility] Vitamin B12 Vitamin B12 2020-1 No 1000ug Common (Cyanocobal (Cyanocobal 1-17 S pirit rivera) rivera) 00:00: - [facility] Vitamin B12 Vitamin B12 2020-1 No 1000ug Common (Cyanocobal (Cyanocobal 1-17 S pirit rivera) rivera) 00:00: - [facility] Vitamin B12 Vitamin B12 2020-1 No 1000ug Common (Cyanocobal (Cyanocobal 1-17 S pirit rivera) rivera) 00:00: - [facility] Vitamin B12 Vitamin B12 2020-1 No 1000ug Common (Cyanocobal (Cyanocobal 1-17 S pirit rivera) rivera) 00:00: - [facility] Vitamin B12 Vitamin B12 2020-1 No 1000ug Common (Cyanocobal (Cyanocobal 1-17 S pirit rivera) rivera) 00:00: - [facility] Vitamin B12 Vitamin B12 2020-1 No 1000ug Common (Cyanocobal (Cyanocobal 1-17 S pirit rivera) rivera) 00:00: - [facility] Vitamin B12 Vitamin B12 2020-1 No 1000ug Common (Cyanocobal (Cyanocobal 1-17 S pirit rivera) rivera) 00:00: - [facility] Vitamin B12 Vitamin B12 2020-1 No 1000ug Common (Cyanocobal (Cyanocobal 1-17 S pirit rivera) rivera) 00:00: - [facility] Vitamin B12 Vitamin B12 2020-1 No 1000ug Common (Cyanocobal (Cyanocobal 1-17 S pirit rivera) rivera) 00:00: - [facility] Vitamin B12 Vitamin B12 2020-1 No 1000ug Common (Cyanocobal (Cyanocobal 1-17 S pirit rivera) rivera) 00:00: - [facility] Vitamin B12 Vitamin B12 2020-1 No 1000ug Common (Cyanocobal (Cyanocobal 1-17 S pirit rivera) rivera) 00:00: - [facility] Vitamin B12 Vitamin B12 2020-1 No 1000ug Common (Cyanocobal (Cyanocobal 1-17 S pirit rivera) rivera) 00:00: - [facility] Vitamin B12 Vitamin B12 2020-1 No 1000ug Common (Cyanocobal (Cyanocobal 1-17 S pirit rivera) rivera) 00:00: - [facility] Vitamin B12 Vitamin B12 2020-1 No 1000ug Common (Cyanocobal (Cyanocobal 1-17 S pirit rivera) rivera) 00:00: - [facility] Vitamin B12 Vitamin B12 2020-1 No 1000ug Common (Cyanocobal (Cyanocobal 1-17 S pirit rivera) rivera) 00:00: - [facility] Vitamin B12 Vitamin B12 2020-1 No 1000ug Common (Cyanocobal (Cyanocobal 1-17 S pirit rivera) rivera) 00:00: - [facility] Vitamin B12 Vitamin B12 2020-1 No 1000ug Common (Cyanocobal (Cyanocobal 1-17 S pirit rivera) rivera) 00:00: - [facility] Vitamin B12 Vitamin B12 2020-1 No 1000ug Common (Cyanocobal (Cyanocobal 1-17 S pirit rivera) rivera) 00:00: - [facility] Vitamin B12 Vitamin B12 2020-1 No 1000ug Common (Cyanocobal (Cyanocobal 1-17 S pirit rivera) rivera) 00:00: - [facility] Vitamin B12 Vitamin B12 2020-1 No 1000ug Common (Cyanocobal (Cyanocobal 1-17 S pirit rivera) rivera) 00:00: - [facility] Vitamin B12 Vitamin B12 2020-1 No 1000ug Common (Cyanocobal (Cyanocobal 1-17 S pirit rivera) rivera) 00:00: - [facility] Vitamin B12 Vitamin B12 2020-1 No 1000ug Common (Cyanocobal (Cyanocobal 1-17 S pirit rivera) rivera) 00:00: - [facility] Vitamin B12 Vitamin B12 2020-1 No 1000ug Common (Cyanocobal (Cyanocobal 1-17 S pirit rivera) rivera) 00:00: - [facility] Vitamin B12 Vitamin B12 2020-1 No 1000ug Common (Cyanocobal (Cyanocobal 1-17 S pirit rivera) rivera) 00:00: - [facility] Vitamin B12 Vitamin B12 2020-1 No 1000ug Common (Cyanocobal (Cyanocobal 1-17 S pirit rivera) rivera) 00:00: - [facility] Vitamin B12 Vitamin B12 2020-1 No 1000ug Common (Cyanocobal (Cyanocobal 1-17 S pirit rivera) rivera) 00:00: - [facility] Vitamin B12 Vitamin B12 2020-1 No 1000ug Common (Cyanocobal (Cyanocobal 1-17 S pirit rivera) rivera) 00:00: - [facility] Vitamin B12 Vitamin B12 2020-1 No 1000ug Common (Cyanocobal (Cyanocobal 1-17 S pirit rivera) rivera) 00:00: - [facility] Vitamin B12 Vitamin B12 2020-1 No 1000ug Common (Cyanocobal (Cyanocobal 1-17 S pirit rivera) rivera) 00:00: - [facility] Vitamin B12 Vitamin B12 2020-1 No 1000ug Common (Cyanocobal (Cyanocobal 1-17 S pirit rivera) rivera) 00:00: - [facility] Vitamin B12 Vitamin B12 2020-1 No 1000ug Common (Cyanocobal (Cyanocobal 1-17 S pirit rivera) rivera) 00:00: - [facility] Vitamin B12 Vitamin B12 2020-1 No 1000ug Common (Cyanocobal (Cyanocobal 1-17 S pirit rivera) rivera) 00:00: - [facility] Vitamin B12 Vitamin B12 2020-1 No 1000ug Common (Cyanocobal (Cyanocobal 1-17 S pirit rivera) rivera) 00:00: - [facility] Vitamin B12 Vitamin B12 2020-1 No 1000ug Common (Cyanocobal (Cyanocobal 1-17 S pirit rivera) rivera) 00:00: - [facility] Vitamin B12 Vitamin B12 2020-1 No 1000ug Common (Cyanocobal (Cyanocobal 1-17 S pirit rivera) rivera) 00:00: - [facility] Vitamin B12 Vitamin B12 2020-1 No 1000ug Common (Cyanocobal (Cyanocobal 1-17 S pirit rivera) rivera) 00:00: - [facility] Vitamin B12 Vitamin B12 2020-1 No 1000ug Common (Cyanocobal (Cyanocobal 1-17 S pirit rivera) rivera) 00:00: - [facility] Vitamin B12 Vitamin B12 2020-1 No 1000ug Common (Cyanocobal (Cyanocobal 1-03 S pirit rivera) rivera) 00:00: - [facility] Vitamin B12 Vitamin B12 2020-1 No 1000ug Common (Cyanocobal (Cyanocobal 1-03 S pirit rivera) rivera) 00:00: - [facility] Vitamin B12 Vitamin B12 2020-1 No 1000ug Common (Cyanocobal (Cyanocobal 1-03 S pirit rivera) rivera) 00:00: - [facility] Vitamin B12 Vitamin B12 2020-1 No 1000ug Common (Cyanocobal (Cyanocobal 1-03 S pirit rivera) rivera) 00:00: - [facility] Vitamin B12 Vitamin B12 2020-1 No 1000ug Common (Cyanocobal (Cyanocobal 1-03 S pirit rivera) rivera) 00:00: - [facility] Vitamin B12 Vitamin B12 2020-1 No 1000ug Common (Cyanocobal (Cyanocobal 1-03 S pirit rivera) rivera) 00:00: - [facility] Vitamin B12 Vitamin B12 2020-1 No 1000ug Common (Cyanocobal (Cyanocobal 1-03 S pirit rivera) rivera) 00:00: - [facility] Vitamin B12 Vitamin B12 2020-1 No 1000ug Common (Cyanocobal (Cyanocobal 1-03 S pirit rivera) rivera) 00:00: - [facility] Vitamin B12 Vitamin B12 2020-1 No 1000ug Common (Cyanocobal (Cyanocobal 1-03 S pirit rivera) rivera) 00:00: - [facility] Vitamin B12 Vitamin B12 2020-1 No 1000ug Common (Cyanocobal (Cyanocobal 1-03 S pirit rivera) rivera) 00:00: - [facility] Vitamin B12 Vitamin B12 2020-1 No 1000ug Common (Cyanocobal (Cyanocobal 1-03 S pirit rivera) rivera) 00:00: - [facility] Vitamin B12 Vitamin B12 2020-1 No 1000ug Common (Cyanocobal (Cyanocobal 1-03 S pirit rivera) rivera) 00:00: - [facility] Vitamin B12 Vitamin B12 2020-1 No 1000ug Common (Cyanocobal (Cyanocobal 1-03 S pirit rivera) rivera) 00:00: - [facility] Vitamin B12 Vitamin B12 2020-1 No 1000ug Common (Cyanocobal (Cyanocobal 1-03 S pirit rivera) rivera) 00:00: - [facility] Vitamin B12 Vitamin B12 2020-1 No 1000ug Common (Cyanocobal (Cyanocobal 1-03 S pirit rivera) rivera) 00:00: - [facility] Vitamin B12 Vitamin B12 2020-1 No 1000ug Common (Cyanocobal (Cyanocobal 1-03 S pirit rivera) rivera) 00:00: - [facility] Vitamin B12 Vitamin B12 2020-1 No 1000ug Common (Cyanocobal (Cyanocobal 1-03 S pirit rivera) rivera) 00:00: - [facility] Vitamin B12 Vitamin B12 2020-1 No 1000ug Common (Cyanocobal (Cyanocobal 1-03 S pirit rivera) rivera) 00:00: - [facility] Vitamin B12 Vitamin B12 2020-1 No 1000ug Common (Cyanocobal (Cyanocobal 1-03 S pirit rivera) rivera) 00:00: - [facility] Vitamin B12 Vitamin B12 2020-1 No 1000ug Common (Cyanocobal (Cyanocobal 1-03 S pirit rivera) rivera) 00:00: - [facility] Vitamin B12 Vitamin B12 2020-1 No 1000ug Common (Cyanocobal (Cyanocobal 1-03 S pirit rivera) rivera) 00:00: - [facility] Vitamin B12 Vitamin B12 2020-1 No 1000ug Common (Cyanocobal (Cyanocobal 1-03 S pirit rivera) rivera) 00:00: - [facility] Vitamin B12 Vitamin B12 2020-1 No 1000ug Common (Cyanocobal (Cyanocobal 1-03 S pirit rivera) rivera) 00:00: - [facility] Vitamin B12 Vitamin B12 2020-1 No 1000ug Common (Cyanocobal (Cyanocobal 1-03 S pirit rivera) rivera) 00:00: - [facility] Vitamin B12 Vitamin B12 2020-1 No 1000ug Common (Cyanocobal (Cyanocobal 1-03 S pirit rivera) rivera) 00:00: - [facility] Vitamin B12 Vitamin B12 2020-1 No 1000ug Common (Cyanocobal (Cyanocobal 1-03 S pirit rivera) rivera) 00:00: - [facility] Vitamin B12 Vitamin B12 2020-1 No 1000ug Common (Cyanocobal (Cyanocobal 1-03 S pirit rivera) rivera) 00:00: - [facility] Vitamin B12 Vitamin B12 2020-1 No 1000ug Common (Cyanocobal (Cyanocobal 1-03 S pirit rivera) rivera) 00:00: - [facility] Vitamin B12 Vitamin B12 2020-1 No 1000ug Common (Cyanocobal (Cyanocobal 1-03 S pirit rivera) rivera) 00:00: - [facility] Vitamin B12 Vitamin B12 2020-1 No 1000ug Common (Cyanocobal (Cyanocobal 1-03 S pirit rivera) rivera) 00:00: - [facility] Vitamin B12 Vitamin B12 2020-1 No 1000ug Common (Cyanocobal (Cyanocobal 1-03 S pirit rivera) rivera) 00:00: - [facility] Vitamin B12 Vitamin B12 2020-1 No 1000ug Common (Cyanocobal (Cyanocobal 1-03 S pirit rivera) rivera) 00:00: - [facility] 00 [facility] Vitamin B12 Vitamin B12 2020-1 No 1000ug Common (Cyanocobal (Cyanocobal 1-03 S pirit rivera) rivera) 00:00: - [facility] 00 [facility] Vitamin B12 Vitamin B12 2020-1 No 1000ug Common (Cyanocobal (Cyanocobal 1-03 S pirit rivera) rivera) 00:00: - [facility] 00 [facility] Vitamin B12 Vitamin B12 2020-1 No 1000ug Common (Cyanocobal (Cyanocobal 1-03 S pirit rivera) rivera) 00:00: - [facility] 00 [facility] Vitamin B12 Vitamin B12 2020-1 No 1000ug Common (Cyanocobal (Cyanocobal 1-03 S pirit rivera) rivera) 00:00: - [facility] 00 [facility] Vitamin B12 Vitamin B12 2020-1 No 1000ug Common (Cyanocobal (Cyanocobal 1-03 S pirit rivera) rivera) 00:00: - [facility] 00 [facility] Vitamin B12 Vitamin B12 2020-1 No 1000ug Common (Cyanocobal (Cyanocobal 1-03 S pirit rivera) rivera) 00:00: - [facility] 00 [facility] Vitamin B12 Vitamin B12 2020-1 No 1000ug Common (Cyanocobal (Cyanocobal 0-23 S pirit rivera) rivera) 00:00: - [facility] 00 [facility] Vitamin B12 Vitamin B12 2020-1 No 1000ug Common (Cyanocobal (Cyanocobal 0-23 S pirit rivera) rivera) 00:00: - [facility] 00 [facility] Vitamin B12 Vitamin B12 2020-1 No 1000ug Common (Cyanocobal (Cyanocobal 0-23 S pirit rivera) rivera) 00:00: - [facility] 00 [facility] Vitamin B12 Vitamin B12 2020-1 No 1000ug Common (Cyanocobal (Cyanocobal 0-23 S pirit rivera) rivera) 00:00: - [facility] 00 [facility] Vitamin B12 Vitamin B12 2020-1 No 1000ug Common (Cyanocobal (Cyanocobal 0-23 S pirit rivera) rivera) 00:00: - [facility] Vitamin B12 Vitamin B12 2020-1 No 1000ug Common (Cyanocobal (Cyanocobal 0-23 S pirit rivera) rivera) 00:00: - [facility] Vitamin B12 Vitamin B12 2020-1 No 1000ug Common (Cyanocobal (Cyanocobal 0-23 S pirit rivera) rivera) 00:00: - [facility] 00 [facility] Vitamin B12 Vitamin B12 2020-1 No 1000ug Common (Cyanocobal (Cyanocobal 0-23 S pirit rivera) rivera) 00:00: - [facility] Vitamin B12 Vitamin B12 2020-1 No 1000ug Common (Cyanocobal (Cyanocobal 0-23 S pirit rivera) rivera) 00:00: - [facility] Vitamin B12 Vitamin B12 2020-1 No 1000ug Common (Cyanocobal (Cyanocobal 0-23 S pirit rivera) rivera) 00:00: - [facility] Vitamin B12 Vitamin B12 2020-1 No 1000ug Common (Cyanocobal (Cyanocobal 0-23 S pirit rivera) rivera) 00:00: - [facility] Vitamin B12 Vitamin B12 2020-1 No 1000ug Common (Cyanocobal (Cyanocobal 0-23 S pirit rivera) rivera) 00:00: - [facility] Vitamin B12 Vitamin B12 2020-1 No 1000ug Common (Cyanocobal (Cyanocobal 0-23 S pirit rivera) rivera) 00:00: - [facility] 00 [facility] Vitamin B12 Vitamin B12 2020-1 No 1000ug Common (Cyanocobal (Cyanocobal 0-23 S pirit rivera) rivera) 00:00: - [facility] Vitamin B12 Vitamin B12 2020-1 No 1000ug Common (Cyanocobal (Cyanocobal 0-23 S pirit rivera) rivera) 00:00: - [facility] Vitamin B12 Vitamin B12 2020-1 No 1000ug Common (Cyanocobal (Cyanocobal 0-23 S pirit rivera) rivera) 00:00: - [facility] Vitamin B12 Vitamin B12 2020-1 No 1000ug Common (Cyanocobal (Cyanocobal 0-23 S pirit rivera) rivera) 00:00: - [facility] 00 [facility] Vitamin B12 Vitamin B12 2020-1 No 1000ug Common (Cyanocobal (Cyanocobal 0-23 S pirit rivera) rivera) 00:00: - [facility] Vitamin B12 Vitamin B12 2020-1 No 1000ug Common (Cyanocobal (Cyanocobal 0-23 S pirit rivera) rivera) 00:00: - [facility] Vitamin B12 Vitamin B12 2020-1 No 1000ug Common (Cyanocobal (Cyanocobal 0-23 S pirit rivera) rivera) 00:00: - [facility] Vitamin B12 Vitamin B12 2020-1 No 1000ug Common (Cyanocobal (Cyanocobal 0-23 S pirit rivera) rivera) 00:00: - [facility] Vitamin B12 Vitamin B12 2020-1 No 1000ug Common (Cyanocobal (Cyanocobal 0-23 S pirit rivera) rivera) 00:00: - [facility] 00 [facility] Vitamin B12 Vitamin B12 2020-1 No 1000ug Common (Cyanocobal (Cyanocobal 0-23 S pirit rivera) rivera) 00:00: - [facility] Vitamin B12 Vitamin B12 2020-1 No 1000ug Common (Cyanocobal (Cyanocobal 0-23 S pirit rivera) rivera) 00:00: - [facility] Vitamin B12 Vitamin B12 2020-1 No 1000ug Common (Cyanocobal (Cyanocobal 0-23 S pirit rivera) rivera) 00:00: - [facility] Vitamin B12 Vitamin B12 2020-1 No 1000ug Common (Cyanocobal (Cyanocobal 0-23 S pirit rivera) rivera) 00:00: - [facility] Vitamin B12 Vitamin B12 2020-1 No 1000ug Common (Cyanocobal (Cyanocobal 0-23 S pirit rivera) rivera) 00:00: - [facility] 00 [facility] Vitamin B12 Vitamin B12 2020-1 No 1000ug Common (Cyanocobal (Cyanocobal 0-23 S pirit rivera) rivera) 00:00: - [facility] Vitamin B12 Vitamin B12 2020-1 No 1000ug Common (Cyanocobal (Cyanocobal 0-23 S pirit rivera) rivera) 00:00: - [facility] 00 [facility] Vitamin B12 Vitamin B12 2020-1 No 1000ug Common (Cyanocobal (Cyanocobal 0-23 S pirit rivera) irvera) 00:00: - [facility] 00 [facility] Vitamin B12 Vitamin B12 2020-1 No 1000ug Common (Cyanocobal (Cyanocobal 0-23 S pirit rivera) rivera) 00:00: - [facility] 00 [facility] Vitamin B12 Vitamin B12 2020-1 No 1000ug Common (Cyanocobal (Cyanocobal 0-23 S pirit rivera) rivera) 00:00: - [facility] 00 [facility] Vitamin B12 Vitamin B12 2020-1 No 1000ug Common (Cyanocobal (Cyanocobal 0-23 S pirit rivera) rivera) 00:00: - [facility] 00 [facility] Vitamin B12 Vitamin B12 2020-1 No 1000ug Common (Cyanocobal (Cyanocobal 0-23 S pirit rivera) rivera) 00:00: - [facility] Vitamin B12 Vitamin B12 2020-1 No 1000ug Common (Cyanocobal (Cyanocobal 0-23 S pirit rivera) rivera) 00:00: - [facility] 00 [facility] Vitamin B12 Vitamin B12 2020-1 No 1000ug Common (Cyanocobal (Cyanocobal 0-23 S pirit rivera) rivera) 00:00: - [facility] 00 [facility] Vitamin B12 Vitamin B12 2020-1 No 1000ug Common (Cyanocobal (Cyanocobal 0-23 S pirit rivera) rivera) 00:00: - [facility] 00 [facility] Vitamin B12 Vitamin B12 2020-1 No 1000ug Common (Cyanocobal (Cyanocobal 0-23 S pirit rivera) rivera) 00:00: - [facility] 00 [facility] Vitamin B12 Vitamin B12 2020-0 No 1000ug Common (Cyanocobal (Cyanocobal 9-28 S pirit rivera) rivera) 00:00: - [facility] 00 [facility] Vitamin B12 Vitamin B12 2020-0 No 1000ug Common (Cyanocobal (Cyanocobal 9-28 S pirit rivera) rivera) 00:00: - [facility] 00 [facility] Vitamin B12 Vitamin B12 2020-0 No 1000ug Common (Cyanocobal (Cyanocobal 9-28 S pirit rivera) rivera) 00:00: - [facility] 00 [facility] Vitamin B12 Vitamin B12 2020-0 No 1000ug Common (Cyanocobal (Cyanocobal 9-28 S pirit rivera) rivera) 00:00: - [facility] 00 [facility] Vitamin B12 Vitamin B12 2020-0 No 1000ug Common (Cyanocobal (Cyanocobal 9-28 S pirit rivera) rivera) 00:00: - [facility] 00 [facility] Vitamin B12 Vitamin B12 2020-0 No 1000ug Common (Cyanocobal (Cyanocobal 9-28 S pirit rivera) rivera) 00:00: - [facility] 00 [facility] Vitamin B12 Vitamin B12 2020-0 No 1000ug Common (Cyanocobal (Cyanocobal 9-28 S pirit rivera) rivera) 00:00: - [facility] 00 [facility] Vitamin B12 Vitamin B12 2020-0 No 1000ug Common (Cyanocobal (Cyanocobal 9-28 S pirit rivera) rivera) 00:00: - [facility] 00 [facility] Vitamin B12 Vitamin B12 2020-0 No 1000ug Common (Cyanocobal (Cyanocobal 9-28 S pirit rivera) rivera) 00:00: - [facility] 00 [facility] Vitamin B12 Vitamin B12 2020-0 No 1000ug Common (Cyanocobal (Cyanocobal 9-28 S pirit rivera) rivera) 00:00: - [facility] 00 [facility] Vitamin B12 Vitamin B12 2020-0 No 1000ug Common (Cyanocobal (Cyanocobal 9-28 S pirit rivera) rivera) 00:00: - [facility] 00 [facility] Vitamin B12 Vitamin B12 2020-0 No 1000ug Common (Cyanocobal (Cyanocobal 9-28 S pirit rivera) rivera) 00:00: - [facility] 00 [facility] Vitamin B12 Vitamin B12 2020-0 No 1000ug Common (Cyanocobal (Cyanocobal 9-28 S pirit rivera) rivera) 00:00: - [facility] 00 [facility] Vitamin B12 Vitamin B12 2020-0 No 1000ug Common (Cyanocobal (Cyanocobal 9-28 S pirit rivera) rivera) 00:00: - [facility] 00 [facility] Vitamin B12 Vitamin B12 2020-0 No 1000ug Common (Cyanocobal (Cyanocobal 9-28 S pirit rivera) rivera) 00:00: - [facility] 00 [facility] Vitamin B12 Vitamin B12 2020-0 No 1000ug Common (Cyanocobal (Cyanocobal 9-28 S pirit rivera) rivera) 00:00: - [facility] 00 [facility] Vitamin B12 Vitamin B12 2020-0 No 1000ug Common (Cyanocobal (Cyanocobal 9-28 S pirit rivera) rivera) 00:00: - [facility] 00 [facility] Vitamin B12 Vitamin B12 2020-0 No 1000ug Common (Cyanocobal (Cyanocobal 9-28 S pirit rivera) rivera) 00:00: - [facility] 00 [facility] Vitamin B12 Vitamin B12 2020-0 No 1000ug Common (Cyanocobal (Cyanocobal 9-28 S pirit rivera) rivera) 00:00: - [facility] 00 [facility] Vitamin B12 Vitamin B12 2020-0 No 1000ug Common (Cyanocobal (Cyanocobal 9-28 S pirit rivera) rivera) 00:00: - [facility] Vitamin B12 Vitamin B12 2020-0 No 1000ug Common (Cyanocobal (Cyanocobal 9-28 S pirit rivera) rivera) 00:00: - [facility] 00 [facility] Vitamin B12 Vitamin B12 2020-0 No 1000ug Common (Cyanocobal (Cyanocobal 9-28 S pirit rivera) rivera) 00:00: - [facility] 00 [facility] Vitamin B12 Vitamin B12 2020-0 No 1000ug Common (Cyanocobal (Cyanocobal 9-28 S pirit rivera) rivera) 00:00: - [facility] 00 [facility] Vitamin B12 Vitamin B12 2020-0 No 1000ug Common (Cyanocobal (Cyanocobal 9-28 S pirit rivera) rivera) 00:00: - [facility] 00 [facility] Vitamin B12 Vitamin B12 2020-0 No 1000ug Common (Cyanocobal (Cyanocobal 9-28 S pirit rivera) rivera) 00:00: - [facility] 00 [facility] Vitamin B12 Vitamin B12 2020-0 No 1000ug Common (Cyanocobal (Cyanocobal 9-28 S pirit rivera) rivera) 00:00: - [facility] 00 [facility] Vitamin B12 Vitamin B12 2020-0 No 1000ug Common (Cyanocobal (Cyanocobal 9-28 S pirit rivera) rivera) 00:00: - [facility] 00 [facility] Vitamin B12 Vitamin B12 2020-0 No 1000ug Common (Cyanocobal (Cyanocobal 9-28 S pirit rivera) rivera) 00:00: - [facility] 00 [facility] Vitamin B12 Vitamin B12 2020-0 No 1000ug Common (Cyanocobal (Cyanocobal 9-28 S pirit rivera) rivera) 00:00: - [facility] 00 [facility] Vitamin B12 Vitamin B12 2020-0 No 1000ug Common (Cyanocobal (Cyanocobal 9-28 S pirit rivera) rivera) 00:00: - [facility] 00 [facility] Vitamin B12 Vitamin B12 2020-0 No 1000ug Common (Cyanocobal (Cyanocobal 9-28 S pirit rivera) rivera) 00:00: - [facility] 00 [facility] Vitamin B12 Vitamin B12 2020-0 No 1000ug Common (Cyanocobal (Cyanocobal 9-28 S pirit rivera) rivera) 00:00: - [facility] 00 [facility] Vitamin B12 Vitamin B12 2020-0 No 1000ug Common (Cyanocobal (Cyanocobal 9-28 S pirit rivera) rivera) 00:00: - [facility] Vitamin B12 Vitamin B12 2020-0 No 1000ug Common (Cyanocobal (Cyanocobal 9-28 S pirit rivera) rivera) 00:00: - [facility] Vitamin B12 Vitamin B12 2020-0 No 1000ug Common (Cyanocobal (Cyanocobal 9-28 S pirit rivera) rivera) 00:00: - [facility] Vitamin B12 Vitamin B12 2020-0 No 1000ug Common (Cyanocobal (Cyanocobal 9-28 S pirit rivera) rivera) 00:00: - [facility] Vitamin B12 Vitamin B12 2020-0 No 1000ug Common (Cyanocobal (Cyanocobal 9-28 S pirit rivera) rivera) 00:00: - [facility] Vitamin B12 Vitamin B12 2020-0 No 1000ug Common (Cyanocobal (Cyanocobal 9-28 S pirit rivera) rivera) 00:00: - [facility] Vitamin B12 Vitamin B12 2020-0 No 1000ug Common (Cyanocobal (Cyanocobal 9-17 S pirit rivera) rivera) 00:00: - [facility] Vitamin B12 Vitamin B12 2020-0 No 1000ug Common (Cyanocobal (Cyanocobal 9-17 S pirit rivera) rivera) 00:00: - [facility] Vitamin B12 Vitamin B12 2020-0 No 1000ug Common (Cyanocobal (Cyanocobal 9-17 S pirit rivera) rivera) 00:00: - [facility] Vitamin B12 Vitamin B12 2020-0 No 1000ug Common (Cyanocobal (Cyanocobal 9-17 S pirit rivera) rivera) 00:00: - [facility] Vitamin B12 Vitamin B12 2020-0 No 1000ug Common (Cyanocobal (Cyanocobal 9-17 S pirit rivera) rivera) 00:00: - [facility] Vitamin B12 Vitamin B12 2020-0 No 1000ug Common (Cyanocobal (Cyanocobal 9-17 S pirit rivera) rivera) 00:00: - [facility] Vitamin B12 Vitamin B12 2020-0 No 1000ug Common (Cyanocobal (Cyanocobal 9-17 S pirit rivera) rivera) 00:00: - [facility] Vitamin B12 Vitamin B12 2020-0 No 1000ug Common (Cyanocobal (Cyanocobal 9-17 S pirit rivera) rivera) 00:00: - [facility] Vitamin B12 Vitamin B12 2020-0 No 1000ug Common (Cyanocobal (Cyanocobal 9-17 S pirit rivera) rivera) 00:00: - [facility] Vitamin B12 Vitamin B12 2020-0 No 1000ug Common (Cyanocobal (Cyanocobal 9-17 S pirit rivera) rivera) 00:00: - [facility] Vitamin B12 Vitamin B12 2020-0 No 1000ug Common (Cyanocobal (Cyanocobal 9-17 S pirit rivera) rivera) 00:00: - [facility] Vitamin B12 Vitamin B12 2020-0 No 1000ug Common (Cyanocobal (Cyanocobal 9-17 S pirit rivera) rivera) 00:00: - [facility] Vitamin B12 Vitamin B12 2020-0 No 1000ug Common (Cyanocobal (Cyanocobal 9-17 S pirit rivera) rivera) 00:00: - [facility] Vitamin B12 Vitamin B12 2020-0 No 1000ug Common (Cyanocobal (Cyanocobal 9-17 S pirit rivera) rivera) 00:00: - [facility] Vitamin B12 Vitamin B12 2020-0 No 1000ug Common (Cyanocobal (Cyanocobal 9-17 S pirit rivera) rivera) 00:00: - [facility] Vitamin B12 Vitamin B12 2020-0 No 1000ug Common (Cyanocobal (Cyanocobal 9-17 S pirit rivera) rivera) 00:00: - [facility] Vitamin B12 Vitamin B12 2020-0 No 1000ug Common (Cyanocobal (Cyanocobal 9-17 S pirit rivera) rivera) 00:00: - [facility] Vitamin B12 Vitamin B12 2020-0 No 1000ug Common (Cyanocobal (Cyanocobal 9-17 S pirit rivera) rivera) 00:00: - [facility] Vitamin B12 Vitamin B12 2020-0 No 1000ug Common (Cyanocobal (Cyanocobal 9-17 S pirit rivera) rivera) 00:00: - [facility] Vitamin B12 Vitamin B12 2020-0 No 1000ug Common (Cyanocobal (Cyanocobal 9-17 S pirit rivera) rivera) 00:00: - [facility] Vitamin B12 Vitamin B12 2020-0 No 1000ug Common (Cyanocobal (Cyanocobal 9-17 S pirit rivera) rivera) 00:00: - [facility] Vitamin B12 Vitamin B12 2020-0 No 1000ug Common (Cyanocobal (Cyanocobal 9-17 S pirit rivera) rivera) 00:00: - [facility] Vitamin B12 Vitamin B12 2020-0 No 1000ug Common (Cyanocobal (Cyanocobal 9-17 S pirit rivera) rivera) 00:00: - [facility] Vitamin B12 Vitamin B12 2020-0 No 1000ug Common (Cyanocobal (Cyanocobal 9-17 S pirit rivera) rivera) 00:00: - [facility] Vitamin B12 Vitamin B12 2020-0 No 1000ug Common (Cyanocobal (Cyanocobal 9-17 S pirit rivera) rivera) 00:00: - [facility] Vitamin B12 Vitamin B12 2020-0 No 1000ug Common (Cyanocobal (Cyanocobal 9-17 S pirit rivera) rivera) 00:00: - [facility] Vitamin B12 Vitamin B12 2020-0 No 1000ug Common (Cyanocobal (Cyanocobal 9-17 S pirit rivera) rivera) 00:00: - [facility] Vitamin B12 Vitamin B12 2020-0 No 1000ug Common (Cyanocobal (Cyanocobal 9-17 S pirit rivera) rivera) 00:00: - [facility] Vitamin B12 Vitamin B12 2020-0 No 1000ug Common (Cyanocobal (Cyanocobal 9-17 S pirit rivera) rivera) 00:00: - [facility] Vitamin B12 Vitamin B12 2020-0 No 1000ug Common (Cyanocobal (Cyanocobal 9-17 S pirit rivera) rivera) 00:00: - [facility] Vitamin B12 Vitamin B12 2020-0 No 1000ug Common (Cyanocobal (Cyanocobal 9-17 S pirit rivera) rivera) 00:00: - [facility] Vitamin B12 Vitamin B12 2020-0 No 1000ug Common (Cyanocobal (Cyanocobal 9-17 S pirit rivera) rivera) 00:00: - [facility] Vitamin B12 Vitamin B12 2020-0 No 1000ug Common (Cyanocobal (Cyanocobal 9-17 S pirit rivera) rivera) 00:00: - [facility] Vitamin B12 Vitamin B12 2020-0 No 1000ug Common (Cyanocobal (Cyanocobal 9-17 S pirit rivera) rivera) 00:00: - [facility] Vitamin B12 Vitamin B12 2020-0 No 1000ug Common (Cyanocobal (Cyanocobal 9-17 S pirit rivera) rivera) 00:00: - [facility] Vitamin B12 Vitamin B12 2020-0 No 1000ug Common (Cyanocobal (Cyanocobal 9-17 S pirit rivera) rivera) 00:00: - [facility] Vitamin B12 Vitamin B12 2020-0 No 1000ug Common (Cyanocobal (Cyanocobal 9-17 S pirit rivera) rivera) 00:00: - [facility] Vitamin B12 Vitamin B12 2020-0 No 1000ug Common (Cyanocobal (Cyanocobal 9-17 S pirit rivera) rivear) 00:00: - [facility] Vitamin B12 Vitamin B12 2020-0 No 1000ug Common (Cyanocobal (Cyanocobal 8-31 S pirit rivera) rivera) 00:00: - [facility] Vitamin B12 Vitamin B12 2020-0 No 1000ug Common (Cyanocobal (Cyanocobal 8-31 S pirit rivera) rivera) 00:00: - [facility] Vitamin B12 Vitamin B12 2020-0 No 1000ug Common (Cyanocobal (Cyanocobal 8-31 S pirit rivera) rivera) 00:00: - [facility] Vitamin B12 Vitamin B12 2020-0 No 1000ug Common (Cyanocobal (Cyanocobal 8-31 S pirit rivera) rivera) 00:00: - [facility] Vitamin B12 Vitamin B12 2020-0 No 1000ug Common (Cyanocobal (Cyanocobal 8-31 S pirit rivera) rivera) 00:00: - [facility] Vitamin B12 Vitamin B12 2020-0 No 1000ug Common (Cyanocobal (Cyanocobal 8-31 S pirit rivera) rivera) 00:00: - [facility] Vitamin B12 Vitamin B12 2020-0 No 1000ug Common (Cyanocobal (Cyanocobal 8-31 S pirit rivera) rivera) 00:00: - [facility] Vitamin B12 Vitamin B12 2020-0 No 1000ug Common (Cyanocobal (Cyanocobal 8-31 S pirit rivera) rivera) 00:00: - [facility] Vitamin B12 Vitamin B12 2020-0 No 1000ug Common (Cyanocobal (Cyanocobal 8-31 S pirit rivera) rivera) 00:00: - [facility] Vitamin B12 Vitamin B12 2020-0 No 1000ug Common (Cyanocobal (Cyanocobal 8-31 S pirit rivera) rivera) 00:00: - [facility] Vitamin B12 Vitamin B12 2020-0 No 1000ug Common (Cyanocobal (Cyanocobal 8-31 S pirit rivera) rivera) 00:00: - [facility] Vitamin B12 Vitamin B12 2020-0 No 1000ug Common (Cyanocobal (Cyanocobal 8-31 S pirit rivera) rivera) 00:00: - [facility] Vitamin B12 Vitamin B12 2020-0 No 1000ug Common (Cyanocobal (Cyanocobal 8-31 S pirit rivera) rivera) 00:00: - [facility] Vitamin B12 Vitamin B12 2020-0 No 1000ug Common (Cyanocobal (Cyanocobal 8-31 S pirit rivera) rivera) 00:00: - [facility] Vitamin B12 Vitamin B12 2020-0 No 1000ug Common (Cyanocobal (Cyanocobal 8-31 S pirit rivera) rivera) 00:00: - [facility] Vitamin B12 Vitamin B12 2020-0 No 1000ug Common (Cyanocobal (Cyanocobal 8-31 S pirit rivera) rivera) 00:00: - [facility] Vitamin B12 Vitamin B12 2020-0 No 1000ug Common (Cyanocobal (Cyanocobal 8-31 S pirit rivera) rivera) 00:00: - [facility] Vitamin B12 Vitamin B12 2020-0 No 1000ug Common (Cyanocobal (Cyanocobal 8-31 S pirit rivera) rivera) 00:00: - [facility] Vitamin B12 Vitamin B12 2020-0 No 1000ug Common (Cyanocobal (Cyanocobal 8-31 S pirit rivera) rivera) 00:00: - [facility] Vitamin B12 Vitamin B12 2020-0 No 1000ug Common (Cyanocobal (Cyanocobal 8-31 S pirit rivera) rivera) 00:00: - [facility] Vitamin B12 Vitamin B12 2020-0 No 1000ug Common (Cyanocobal (Cyanocobal 8-31 S pirit rivera) rivera) 00:00: - [facility] Vitamin B12 Vitamin B12 2020-0 No 1000ug Common (Cyanocobal (Cyanocobal 8-31 S pirit rivera) rivera) 00:00: - [facility] Vitamin B12 Vitamin B12 2020-0 No 1000ug Common (Cyanocobal (Cyanocobal 8-31 S pirit rivera) rivera) 00:00: - [facility] Vitamin B12 Vitamin B12 2020-0 No 1000ug Common (Cyanocobal (Cyanocobal 8-31 S pirit rivera) rivera) 00:00: - [facility] Vitamin B12 Vitamin B12 2020-0 No 1000ug Common (Cyanocobal (Cyanocobal 8-31 S pirit rivera) rivera) 00:00: - [facility] Vitamin B12 Vitamin B12 2020-0 No 1000ug Common (Cyanocobal (Cyanocobal 8-31 S pirit rivera) rivera) 00:00: - [facility] Vitamin B12 Vitamin B12 2020-0 No 1000ug Common (Cyanocobal (Cyanocobal 8-31 S pirit rivera) rivera) 00:00: - [facility] Vitamin B12 Vitamin B12 2020-0 No 1000ug Common (Cyanocobal (Cyanocobal 8-31 S pirit rivera) rivera) 00:00: - [facility] Vitamin B12 Vitamin B12 2020-0 No 1000ug Common (Cyanocobal (Cyanocobal 8-31 S pirit rivera) rivera) 00:00: - [facility] Vitamin B12 Vitamin B12 2020-0 No 1000ug Common (Cyanocobal (Cyanocobal 8-31 S pirit rivera) rivera) 00:00: - [facility] Vitamin B12 Vitamin B12 2020-0 No 1000ug Common (Cyanocobal (Cyanocobal 8-31 S pirit rivera) rivera) 00:00: - [facility] Vitamin B12 Vitamin B12 2020-0 No 1000ug Common (Cyanocobal (Cyanocobal 8-31 S pirit rivera) rivera) 00:00: - [facility] Vitamin B12 Vitamin B12 2020-0 No 1000ug Common (Cyanocobal (Cyanocobal 8-31 S pirit rivera) rivera) 00:00: - [facility] Vitamin B12 Vitamin B12 2020-0 No 1000ug Common (Cyanocobal (Cyanocobal 8-31 S pirit rivera) rivera) 00:00: - [facility] Vitamin B12 Vitamin B12 2020-0 No 1000ug Common (Cyanocobal (Cyanocobal 8-31 S pirit rivera) rivera) 00:00: - [facility] Vitamin B12 Vitamin B12 2020-0 No 1000ug Common (Cyanocobal (Cyanocobal 8-31 S pirit rivera) rivera) 00:00: - [facility] Vitamin B12 Vitamin B12 2020-0 No 1000ug Common (Cyanocobal (Cyanocobal 8-31 S pirit rivera) rivera) 00:00: - [facility] Vitamin B12 Vitamin B12 2020-0 No 1000ug Common (Cyanocobal (Cyanocobal 8-31 S pirit rivera) rivera) 00:00: - [facility] Vitamin B12 Vitamin B12 2020-0 No 1000ug Common (Cyanocobal (Cyanocobal 8-17 S pirit rivera) rivera) 00:00: - [facility] Vitamin B12 Vitamin B12 2020-0 No 1000ug Common (Cyanocobal (Cyanocobal 8-17 S pirit rivera) rivera) 00:00: - [facility] Vitamin B12 Vitamin B12 2020-0 No 1000ug Common (Cyanocobal (Cyanocobal 8-17 S pirit rivera) rivera) 00:00: - [facility] Vitamin B12 Vitamin B12 2020-0 No 1000ug Common (Cyanocobal (Cyanocobal 8-17 S pirit rivera) rivera) 00:00: - [facility] Vitamin B12 Vitamin B12 2020-0 No 1000ug Common (Cyanocobal (Cyanocobal 8-17 S pirit rivera) rivera) 00:00: - [facility] Vitamin B12 Vitamin B12 2020-0 No 1000ug Common (Cyanocobal (Cyanocobal 8-17 S pirit rivera) rivera) 00:00: - [facility] Vitamin B12 Vitamin B12 2020-0 No 1000ug Common (Cyanocobal (Cyanocobal 8-17 S pirit rivera) rivera) 00:00: - [facility] Vitamin B12 Vitamin B12 2020-0 No 1000ug Common (Cyanocobal (Cyanocobal 8-17 S pirit rivera) rivera) 00:00: - [facility] Vitamin B12 Vitamin B12 2020-0 No 1000ug Common (Cyanocobal (Cyanocobal 8-17 S pirit rivera) rivera) 00:00: - [facility] Vitamin B12 Vitamin B12 2020-0 No 1000ug Common (Cyanocobal (Cyanocobal 8-17 S pirit rivera) rivera) 00:00: - [facility] Vitamin B12 Vitamin B12 2020-0 No 1000ug Common (Cyanocobal (Cyanocobal 8-17 S pirit rivera) rivera) 00:00: - [facility] Vitamin B12 Vitamin B12 2020-0 No 1000ug Common (Cyanocobal (Cyanocobal 8-17 S pirit rivera) rivera) 00:00: - [facility] Vitamin B12 Vitamin B12 2020-0 No 1000ug Common (Cyanocobal (Cyanocobal 8-17 S pirit rivera) rivera) 00:00: - [facility] Vitamin B12 Vitamin B12 2020-0 No 1000ug Common (Cyanocobal (Cyanocobal 8-17 S pirit rivera) rivera) 00:00: - [facility] Vitamin B12 Vitamin B12 2020-0 No 1000ug Common (Cyanocobal (Cyanocobal 8-17 S pirit rivera) rivera) 00:00: - [facility] Vitamin B12 Vitamin B12 2020-0 No 1000ug Common (Cyanocobal (Cyanocobal 8-17 S pirit rivera) rivera) 00:00: - [facility] Vitamin B12 Vitamin B12 2020-0 No 1000ug Common (Cyanocobal (Cyanocobal 8-17 S pirit rivera) rivera) 00:00: - [facility] Vitamin B12 Vitamin B12 2020-0 No 1000ug Common (Cyanocobal (Cyanocobal 8-17 S pirit rivera) rivera) 00:00: - [facility] Vitamin B12 Vitamin B12 2020-0 No 1000ug Common (Cyanocobal (Cyanocobal 8-17 S pirit rivera) rivera) 00:00: - [facility] Vitamin B12 Vitamin B12 2020-0 No 1000ug Common (Cyanocobal (Cyanocobal 8-17 S pirit rivera) rivera) 00:00: - [facility] Vitamin B12 Vitamin B12 2020-0 No 1000ug Common (Cyanocobal (Cyanocobal 8-17 S pirit rivera) rivera) 00:00: - [facility] Vitamin B12 Vitamin B12 2020-0 No 1000ug Common (Cyanocobal (Cyanocobal 8-17 S pirit rivera) rivera) 00:00: - [facility] Vitamin B12 Vitamin B12 2020-0 No 1000ug Common (Cyanocobal (Cyanocobal 8-17 S pirit rivera) rivera) 00:00: - [facility] Vitamin B12 Vitamin B12 2020-0 No 1000ug Common (Cyanocobal (Cyanocobal 8-17 S pirit rivera) rivera) 00:00: - [facility] Vitamin B12 Vitamin B12 2020-0 No 1000ug Common (Cyanocobal (Cyanocobal 8-17 S pirit rivera) rivera) 00:00: - [facility] Vitamin B12 Vitamin B12 2020-0 No 1000ug Common (Cyanocobal (Cyanocobal 8-17 S pirit rivera) rivera) 00:00: - [facility] Vitamin B12 Vitamin B12 2020-0 No 1000ug Common (Cyanocobal (Cyanocobal 8-17 S pirit rivera) rivera) 00:00: - [facility] Vitamin B12 Vitamin B12 2020-0 No 1000ug Common (Cyanocobal (Cyanocobal 8-17 S pirit rivera) rivera) 00:00: - [facility] Vitamin B12 Vitamin B12 2020-0 No 1000ug Common (Cyanocobal (Cyanocobal 8-17 S pirit rivera) rivera) 00:00: - [facility] Vitamin B12 Vitamin B12 2020-0 No 1000ug Common (Cyanocobal (Cyanocobal 8-17 S pirit rivera) rivera) 00:00: - [facility] Vitamin B12 Vitamin B12 2020-0 No 1000ug Common (Cyanocobal (Cyanocobal 8-17 S pirit rivera) rivera) 00:00: - [facility] Vitamin B12 Vitamin B12 2020-0 No 1000ug Common (Cyanocobal (Cyanocobal 8-17 S pirit rivera) rivera) 00:00: - [facility] Vitamin B12 Vitamin B12 2020-0 No 1000ug Common (Cyanocobal (Cyanocobal 8-17 S pirit rivera) rivera) 00:00: - [facility] Vitamin B12 Vitamin B12 2020-0 No 1000ug Common (Cyanocobal (Cyanocobal 8-17 S pirit rivera) rivera) 00:00: - [facility] Vitamin B12 Vitamin B12 2020-0 No 1000ug Common (Cyanocobal (Cyanocobal 8-17 S pirit rivera) rivera) 00:00: - [facility] Vitamin B12 Vitamin B12 2020-0 No 1000ug Common (Cyanocobal (Cyanocobal 8-17 S pirit rivera) rivera) 00:00: - [facility] Vitamin B12 Vitamin B12 2020-0 No 1000ug Common (Cyanocobal (Cyanocobal 8-17 S pirit rivera) rivera) 00:00: - [facility] Vitamin B12 Vitamin B12 2020-0 No 1000ug Common (Cyanocobal (Cyanocobal 8-17 S pirit rivera) rivera) 00:00: - [facility] Vitamin B12 Vitamin B12 2020-0 No 1000ug Common (Cyanocobal (Cyanocobal 8-03 S pirit rivera) rivera) 00:00: - [facility] Vitamin B12 Vitamin B12 2020-0 No 1000ug Common (Cyanocobal (Cyanocobal 8-03 S pirit rivera) rivera) 00:00: - [facility] Vitamin B12 Vitamin B12 2020-0 No 1000ug Common (Cyanocobal (Cyanocobal 8-03 S pirit rivera) rivera) 00:00: - [facility] Vitamin B12 Vitamin B12 2020-0 No 1000ug Common (Cyanocobal (Cyanocobal 8-03 S pirit rivera) rivera) 00:00: - [facility] Vitamin B12 Vitamin B12 2020-0 No 1000ug Common (Cyanocobal (Cyanocobal 8-03 S pirit rivera) rivera) 00:00: - [facility] Vitamin B12 Vitamin B12 2020-0 No 1000ug Common (Cyanocobal (Cyanocobal 8-03 S pirit rivera) rivera) 00:00: - [facility] Vitamin B12 Vitamin B12 2020-0 No 1000ug Common (Cyanocobal (Cyanocobal 8-03 S pirit rivera) rivera) 00:00: - [facility] Vitamin B12 Vitamin B12 2020-0 No 1000ug Common (Cyanocobal (Cyanocobal 8-03 S pirit rivera) rivera) 00:00: - [facility] Vitamin B12 Vitamin B12 2020-0 No 1000ug Common (Cyanocobal (Cyanocobal 8-03 S pirit rivera) rivera) 00:00: - [facility] Vitamin B12 Vitamin B12 2020-0 No 1000ug Common (Cyanocobal (Cyanocobal 8-03 S pirit rivera) rivera) 00:00: - [facility] Vitamin B12 Vitamin B12 2020-0 No 1000ug Common (Cyanocobal (Cyanocobal 8-03 S pirit rivera) rivera) 00:00: - [facility] Vitamin B12 Vitamin B12 2020-0 No 1000ug Common (Cyanocobal (Cyanocobal 8-03 S pirit rivera) rivera) 00:00: - [facility] Vitamin B12 Vitamin B12 2020-0 No 1000ug Common (Cyanocobal (Cyanocobal 8-03 S pirit rivera) rivera) 00:00: - [facility] Vitamin B12 Vitamin B12 2020-0 No 1000ug Common (Cyanocobal (Cyanocobal 8-03 S pirit rivera) rivera) 00:00: - [facility] Vitamin B12 Vitamin B12 2020-0 No 1000ug Common (Cyanocobal (Cyanocobal 8-03 S pirit rivera) rivera) 00:00: - [facility] Vitamin B12 Vitamin B12 2020-0 No 1000ug Common (Cyanocobal (Cyanocobal 8-03 S pirit rivera) rivera) 00:00: - [facility] Vitamin B12 Vitamin B12 2020-0 No 1000ug Common (Cyanocobal (Cyanocobal 8-03 S pirit rivera) rivera) 00:00: - [facility] Vitamin B12 Vitamin B12 2020-0 No 1000ug Common (Cyanocobal (Cyanocobal 8-03 S pirit rivera) rivera) 00:00: - [facility] Vitamin B12 Vitamin B12 2020-0 No 1000ug Common (Cyanocobal (Cyanocobal 8-03 S pirit rivera) rivera) 00:00: - [facility] Vitamin B12 Vitamin B12 2020-0 No 1000ug Common (Cyanocobal (Cyanocobal 8-03 S pirit rivera) rivera) 00:00: - [facility] Vitamin B12 Vitamin B12 2020-0 No 1000ug Common (Cyanocobal (Cyanocobal 8-03 S pirit rivera) rivera) 00:00: - [facility] Vitamin B12 Vitamin B12 2020-0 No 1000ug Common (Cyanocobal (Cyanocobal 8-03 S pirit rivera) rivera) 00:00: - [facility] Vitamin B12 Vitamin B12 2020-0 No 1000ug Common (Cyanocobal (Cyanocobal 8-03 S pirit rivera) rivera) 00:00: - [facility] Vitamin B12 Vitamin B12 2020-0 No 1000ug Common (Cyanocobal (Cyanocobal 8-03 S pirit rivera) rivera) 00:00: - [facility] Vitamin B12 Vitamin B12 2020-0 No 1000ug Common (Cyanocobal (Cyanocobal 8-03 S pirit rivera) rivera) 00:00: - [facility] Vitamin B12 Vitamin B12 2020-0 No 1000ug Common (Cyanocobal (Cyanocobal 8-03 S pirit rivera) rivera) 00:00: - [facility] Vitamin B12 Vitamin B12 2020-0 No 1000ug Common (Cyanocobal (Cyanocobal 8-03 S pirit rivera) rivera) 00:00: - [facility] Vitamin B12 Vitamin B12 2020-0 No 1000ug Common (Cyanocobal (Cyanocobal 8-03 S pirit rivera) rivera) 00:00: - [facility] Vitamin B12 Vitamin B12 2020-0 No 1000ug Common (Cyanocobal (Cyanocobal 8-03 S pirit rivera) rivera) 00:00: - [facility] Vitamin B12 Vitamin B12 2020-0 No 1000ug Common (Cyanocobal (Cyanocobal 8-03 S pirit rivera) rivera) 00:00: - [facility] Vitamin B12 Vitamin B12 2020-0 No 1000ug Common (Cyanocobal (Cyanocobal 8-03 S pirit rivera) rivera) 00:00: - [facility] Vitamin B12 Vitamin B12 2020-0 No 1000ug Common (Cyanocobal (Cyanocobal 8-03 S pirit rivera) rivera) 00:00: - [facility] Vitamin B12 Vitamin B12 2020-0 No 1000ug Common (Cyanocobal (Cyanocobal 8-03 S pirit rivera) rivera) 00:00: - [facility] Vitamin B12 Vitamin B12 2020-0 No 1000ug Common (Cyanocobal (Cyanocobal 8-03 S pirit rivera) rivera) 00:00: - [facility] Vitamin B12 Vitamin B12 2020-0 No 1000ug Common (Cyanocobal (Cyanocobal 8-03 S pirit rivera) rivera) 00:00: - [facility] Vitamin B12 Vitamin B12 2020-0 No 1000ug Common (Cyanocobal (Cyanocobal 8-03 S pirit rivera) rivera) 00:00: - [facility] Vitamin B12 Vitamin B12 2020-0 No 1000ug Common (Cyanocobal (Cyanocobal 8-03 S pirit rivera) rivera) 00:00: - [facility] Vitamin B12 Vitamin B12 2020-0 No 1000ug Common (Cyanocobal (Cyanocobal 8-03 S pirit rivera) rivera) 00:00: - [facility] Vitamin B12 Vitamin B12 2020-0 No 1000ug Common (Cyanocobal (Cyanocobal 7-20 S pirit rivera) rivera) 00:00: - [facility] Vitamin B12 Vitamin B12 2020-0 No 1000ug Common (Cyanocobal (Cyanocobal 7-20 S pirit rivera) rivera) 00:00: - [facility] Vitamin B12 Vitamin B12 2020-0 No 1000ug Common (Cyanocobal (Cyanocobal 7-20 S pirit rivera) rivera) 00:00: - [facility] Vitamin B12 Vitamin B12 2020-0 No 1000ug Common (Cyanocobal (Cyanocobal 7-20 S pirit rivera) rivera) 00:00: - [facility] Vitamin B12 Vitamin B12 2020-0 No 1000ug Common (Cyanocobal (Cyanocobal 7-20 S pirit rivera) rivera) 00:00: - [facility] Vitamin B12 Vitamin B12 2020-0 No 1000ug Common (Cyanocobal (Cyanocobal 7-20 S pirit rivera) rivera) 00:00: - [facility] Vitamin B12 Vitamin B12 2020-0 No 1000ug Common (Cyanocobal (Cyanocobal 7-20 S pirit rivera) rivera) 00:00: - [facility] Vitamin B12 Vitamin B12 2020-0 No 1000ug Common (Cyanocobal (Cyanocobal 7-20 S pirit rivera) rivera) 00:00: - [facility] Vitamin B12 Vitamin B12 2020-0 No 1000ug Common (Cyanocobal (Cyanocobal 7-20 S pirit rivera) rivera) 00:00: - [facility] Vitamin B12 Vitamin B12 2020-0 No 1000ug Common (Cyanocobal (Cyanocobal 7-20 S pirit rivera) rivera) 00:00: - [facility] Vitamin B12 Vitamin B12 2020-0 No 1000ug Common (Cyanocobal (Cyanocobal 7-20 S pirit rivera) rivera) 00:00: - [facility] Vitamin B12 Vitamin B12 2020-0 No 1000ug Common (Cyanocobal (Cyanocobal 7-20 S pirit rivera) rivera) 00:00: - [facility] Vitamin B12 Vitamin B12 2020-0 No 1000ug Common (Cyanocobal (Cyanocobal 7-20 S pirit rivera) rivera) 00:00: - [facility] Vitamin B12 Vitamin B12 2020-0 No 1000ug Common (Cyanocobal (Cyanocobal 7-20 S pirit rivera) rivera) 00:00: - [facility] Vitamin B12 Vitamin B12 2020-0 No 1000ug Common (Cyanocobal (Cyanocobal 7-20 S pirit rivera) rivear) 00:00: - [facility] Vitamin B12 Vitamin B12 2020-0 No 1000ug Common (Cyanocobal (Cyanocobal 7-20 S pirit rivera) rivera) 00:00: - [facility] Vitamin B12 Vitamin B12 2020-0 No 1000ug Common (Cyanocobal (Cyanocobal 7-20 S pirit rivera) rivera) 00:00: - [facility] Vitamin B12 Vitamin B12 2020-0 No 1000ug Common (Cyanocobal (Cyanocobal 7-20 S pirit rivera) rivera) 00:00: - [facility] Vitamin B12 Vitamin B12 2020-0 No 1000ug Common (Cyanocobal (Cyanocobal 7-20 S pirit rivera) rivera) 00:00: - [facility] Vitamin B12 Vitamin B12 2020-0 No 1000ug Common (Cyanocobal (Cyanocobal 7-20 S pirit rivera) rivera) 00:00: - [facility] Vitamin B12 Vitamin B12 2020-0 No 1000ug Common (Cyanocobal (Cyanocobal 7-20 S pirit rivera) rivera) 00:00: - [facility] Vitamin B12 Vitamin B12 2020-0 No 1000ug Common (Cyanocobal (Cyanocobal 7-20 S pirit rivera) rivera) 00:00: - [facility] Vitamin B12 Vitamin B12 2020-0 No 1000ug Common (Cyanocobal (Cyanocobal 7-20 S pirit rivera) rivera) 00:00: - [facility] Vitamin B12 Vitamin B12 2020-0 No 1000ug Common (Cyanocobal (Cyanocobal 7-20 S pirit rivera) rivera) 00:00: - [facility] Vitamin B12 Vitamin B12 2020-0 No 1000ug Common (Cyanocobal (Cyanocobal 7-20 S pirit rivera) rivera) 00:00: - [facility] Vitamin B12 Vitamin B12 2020-0 No 1000ug Common (Cyanocobal (Cyanocobal 7-20 S pirit rivera) rivera) 00:00: - [facility] Vitamin B12 Vitamin B12 2020-0 No 1000ug Common (Cyanocobal (Cyanocobal 7-20 S pirit rivera) rivera) 00:00: - [facility] Vitamin B12 Vitamin B12 2020-0 No 1000ug Common (Cyanocobal (Cyanocobal 7-20 S pirit rivera) rivera) 00:00: - [facility] Vitamin B12 Vitamin B12 2020-0 No 1000ug Common (Cyanocobal (Cyanocobal 7-20 S pirit rivera) rivera) 00:00: - [facility] Vitamin B12 Vitamin B12 2020-0 No 1000ug Common (Cyanocobal (Cyanocobal 7-20 S pirit rivera) rivera) 00:00: - [facility] Vitamin B12 Vitamin B12 2020-0 No 1000ug Common (Cyanocobal (Cyanocobal 7-20 S pirit rivera) rivera) 00:00: - [facility] Vitamin B12 Vitamin B12 2020-0 No 1000ug Common (Cyanocobal (Cyanocobal 7-20 S pirit rivera) rivera) 00:00: - [facility] Vitamin B12 Vitamin B12 2020-0 No 1000ug Common (Cyanocobal (Cyanocobal 7-20 S pirit rivera) rivera) 00:00: - [facility] Vitamin B12 Vitamin B12 2020-0 No 1000ug Common (Cyanocobal (Cyanocobal 7-20 S pirit rivera) rivera) 00:00: - [facility] Vitamin B12 Vitamin B12 2020-0 No 1000ug Common (Cyanocobal (Cyanocobal 7-20 S pirit rivera) rivera) 00:00: - [facility] Vitamin B12 Vitamin B12 2020-0 No 1000ug Common (Cyanocobal (Cyanocobal 7-20 S pirit rivera) rivera) 00:00: - [facility] Vitamin B12 Vitamin B12 2020-0 No 1000ug Common (Cyanocobal (Cyanocobal 7-20 S pirit rivera) rivera) 00:00: - [facility] Vitamin B12 Vitamin B12 2020-0 No 1000ug Common (Cyanocobal (Cyanocobal 7-20 S pirit rivera) rivera) 00:00: - [facility] Zolpidem Zolpidem 2020-0 Yes Tom 1 tablet Common Tartrate Tartrate 10-29 Felder at bedtime Spirit 00:00: - [facility] Vitamin B12 Vitamin B12 2020-0 No 1000ug Common (Cyanocobal (Cyanocobal 7-02 S pirit rivera) rivera) 00:00: - [facility] Vitamin B12 Vitamin B12 2020-0 No 1000ug Common (Cyanocobal (Cyanocobal 7-02 S pirit rivera) rivera) 00:00: - [facility] Vitamin B12 Vitamin B12 2020-0 No 1000ug Common (Cyanocobal (Cyanocobal 7-02 S pirit rivera) rivera) 00:00: - [facility] Vitamin B12 Vitamin B12 2020-0 No 1000ug Common (Cyanocobal (Cyanocobal 7-02 S pirit rivera) rivera) 00:00: - [facility] Vitamin B12 Vitamin B12 2020-0 No 1000ug Common (Cyanocobal (Cyanocobal 7-02 S pirit rivera) rivera) 00:00: - [facility] Vitamin B12 Vitamin B12 2020-0 No 1000ug Common (Cyanocobal (Cyanocobal 7-02 S pirit rivera) rivera) 00:00: - [facility] Vitamin B12 Vitamin B12 2020-0 No 1000ug Common (Cyanocobal (Cyanocobal 7-02 S pirit rivera) rivera) 00:00: - [facility] Vitamin B12 Vitamin B12 2020-0 No 1000ug Common (Cyanocobal (Cyanocobal 7-02 S pirit rivera) rivera) 00:00: - [facility] Vitamin B12 Vitamin B12 2020-0 No 1000ug Common (Cyanocobal (Cyanocobal 7-02 S pirit rivera) rivera) 00:00: - [facility] Vitamin B12 Vitamin B12 2020-0 No 1000ug Common (Cyanocobal (Cyanocobal 7-02 S pirit rivera) rivera) 00:00: - [facility] Vitamin B12 Vitamin B12 2020-0 No 1000ug Common (Cyanocobal (Cyanocobal 7-02 S pirit rivera) rivera) 00:00: - [facility] Vitamin B12 Vitamin B12 2020-0 No 1000ug Common (Cyanocobal (Cyanocobal 7-02 S pirit rivera) rivera) 00:00: - [facility] Vitamin B12 Vitamin B12 2020-0 No 1000ug Common (Cyanocobal (Cyanocobal 7-02 S pirit rivera) rivera) 00:00: - [facility] Vitamin B12 Vitamin B12 2020-0 No 1000ug Common (Cyanocobal (Cyanocobal 7-02 S pirit rivera) rivera) 00:00: - [facility] Vitamin B12 Vitamin B12 2020-0 No 1000ug Common (Cyanocobal (Cyanocobal 7-02 S pirit rivera) rivera) 00:00: - [facility] Vitamin B12 Vitamin B12 2020-0 No 1000ug Common (Cyanocobal (Cyanocobal 7-02 S pirit rivera) rivera) 00:00: - [facility] Vitamin B12 Vitamin B12 2020-0 No 1000ug Common (Cyanocobal (Cyanocobal 7-02 S pirit rivera) rivera) 00:00: - [facility] Vitamin B12 Vitamin B12 2020-0 No 1000ug Common (Cyanocobal (Cyanocobal 7-02 S pirit rivera) rviera) 00:00: - [facility] Vitamin B12 Vitamin B12 2020-0 No 1000ug Common (Cyanocobal (Cyanocobal 7-02 S pirit rivera) rivera) 00:00: - [facility] Vitamin B12 Vitamin B12 2020-0 No 1000ug Common (Cyanocobal (Cyanocobal 7-02 S pirit rivera) rivera) 00:00: - [facility] Vitamin B12 Vitamin B12 2020-0 No 1000ug Common (Cyanocobal (Cyanocobal 7-02 S pirit rivera) rivera) 00:00: - [facility] Vitamin B12 Vitamin B12 2020-0 No 1000ug Common (Cyanocobal (Cyanocobal 7-02 S pirit rivera) rivera) 00:00: - [facility] Vitamin B12 Vitamin B12 2020-0 No 1000ug Common (Cyanocobal (Cyanocobal 7-02 S pirit rivera) rivera) 00:00: - [facility] Vitamin B12 Vitamin B12 2020-0 No 1000ug Common (Cyanocobal (Cyanocobal 7-02 S pirit rivera) rivera) 00:00: - [facility] Vitamin B12 Vitamin B12 2020-0 No 1000ug Common (Cyanocobal (Cyanocobal 7-02 S pirit rivera) rivera) 00:00: - [facility] Vitamin B12 Vitamin B12 2020-0 No 1000ug Common (Cyanocobal (Cyanocobal 7-02 S pirit rivera) rivera) 00:00: - [facility] Vitamin B12 Vitamin B12 2020-0 No 1000ug Common (Cyanocobal (Cyanocobal 7-02 S pirit rivera) rivera) 00:00: - [facility] Vitamin B12 Vitamin B12 2020-0 No 1000ug Common (Cyanocobal (Cyanocobal 7-02 S pirit rivera) rivera) 00:00: - [facility] Vitamin B12 Vitamin B12 2020-0 No 1000ug Common (Cyanocobal (Cyanocobal 7-02 S pirit rivera) rivera) 00:00: - [facility] Vitamin B12 Vitamin B12 2020-0 No 1000ug Common (Cyanocobal (Cyanocobal 7-02 S pirit rivera) rivera) 00:00: - [facility] Vitamin B12 Vitamin B12 2020-0 No 1000ug Common (Cyanocobal (Cyanocobal 7-02 S pirit rivera) rivera) 00:00: - [facility] Vitamin B12 Vitamin B12 2020-0 No 1000ug Common (Cyanocobal (Cyanocobal 7-02 S pirit rivera) rivera) 00:00: - [facility] Vitamin B12 Vitamin B12 2020-0 No 1000ug Common (Cyanocobal (Cyanocobal 7-02 S pirit rivera) rivera) 00:00: - [facility] Vitamin B12 Vitamin B12 2020-0 No 1000ug Common (Cyanocobal (Cyanocobal 7-02 S pirit rivera) rivera) 00:00: - [facility] Vitamin B12 Vitamin B12 2020-0 No 1000ug Common (Cyanocobal (Cyanocobal 7-02 S pirit rivera) rivera) 00:00: - [facility] Vitamin B12 Vitamin B12 2020-0 No 1000ug Common (Cyanocobal (Cyanocobal 7-02 S pirit rivera) rivera) 00:00: - [facility] Vitamin B12 Vitamin B12 2020-0 No 1000ug Common (Cyanocobal (Cyanocobal 7-02 S pirit rivera) rivera) 00:00: - [facility] Vitamin B12 Vitamin B12 2020-0 No 1000ug Common (Cyanocobal (Cyanocobal 7-02 S pirit rivera) rivera) 00:00: - [facility] Kenalog Kenalog 2020-0 No 40mg Common (Triamcinol (Triamcinol 6-18 S pirit one) one) 00:00: - [facility] Kenalog Kenalog 2020-0 No 40mg Common (Triamcinol (Triamcinol 6-18 S pirit one) one) 00:00: - [facility] Kenalog Kenalog 2020-0 No 40mg Common (Triamcinol (Triamcinol 6-18 S pirit one) one) 00:00: - [facility] Kenalog Kenalog 2020-0 No 40mg Common (Triamcinol (Triamcinol 6-18 S pirit one) one) 00:00: - [facility] Kenalog Kenalog 2020-0 No 40mg Common (Triamcinol (Triamcinol 6-18 S pirit one) one) 00:00: - [facility] Kenalog Kenalog 2020-0 No 40mg Common (Triamcinol (Triamcinol 6-18 S pirit one) one) 00:00: - [facility] Kenalog Kenalog 2020-0 No 40mg Common (Triamcinol (Triamcinol 6-18 S pirit one) one) 00:00: - [facility] Kenalog Kenalog 2020-0 No 40mg Common (Triamcinol (Triamcinol 6-18 S pirit one) one) 00:00: - [facility] Kenalog Kenalog 2020-0 No 40mg Common (Triamcinol (Triamcinol 6-18 S pirit one) one) 00:00: - [facility] Kenalog Kenalog 2020-0 No 40mg Common (Triamcinol (Triamcinol 6-18 S pirit one) one) 00:00: - [facility] Kenalog Kenalog 2020-0 No 40mg Common (Triamcinol (Triamcinol 6-18 S pirit one) one) 00:00: - [facility] Kenalog Kenalog 2020-0 No 40mg Common (Triamcinol (Triamcinol 6-18 S pirit one) one) 00:00: - [facility] Kenalog Kenalog 2020-0 No 40mg Common (Triamcinol (Triamcinol 6-18 S pirit one) one) 00:00: - [facility] Kenalog Kenalog 2020-0 No 40mg Common (Triamcinol (Triamcinol 6-18 S pirit one) one) 00:00: - [facility] Kenalog Kenalog 2020-0 No 40mg Common (Triamcinol (Triamcinol 6-18 S pirit one) one) 00:00: - [facility] Kenalog Kenalog 2020-0 No 40mg Common (Triamcinol (Triamcinol 6-18 S pirit one) one) 00:00: - [facility] Kenalog Kenalog 2020-0 No 40mg Common (Triamcinol (Triamcinol 6-18 S pirit one) one) 00:00: - [facility] Kenalog Kenalog 2020-0 No 40mg Common (Triamcinol (Triamcinol 6-18 S pirit one) one) 00:00: - [facility] Kenalog Kenalog 2020-0 No 40mg Common (Triamcinol (Triamcinol 6-18 S pirit one) one) 00:00: - [facility] Kenalog Kenalog 2020-0 No 40mg Common (Triamcinol (Triamcinol 6-18 S pirit one) one) 00:00: - [facility] Kenalog Kenalog 2020-0 No 40mg Common (Triamcinol (Triamcinol 6-18 S pirit one) one) 00:00: - [facility] Kenalog Kenalog 2020-0 No 40mg Common (Triamcinol (Triamcinol 6-18 S pirit one) one) 00:00: - [facility] Kenalog Kenalog 2020-0 No 40mg Common (Triamcinol (Triamcinol 6-18 S pirit one) one) 00:00: - [facility] Kenalog Kenalog 2020-0 No 40mg Common (Triamcinol (Triamcinol 6-18 S pirit one) one) 00:00: - [facility] Kenalog Kenalog 2020-0 No 40mg Common (Triamcinol (Triamcinol 6-18 S pirit one) one) 00:00: - [facility] Kenalog Kenalog 2020-0 No 40mg Common (Triamcinol (Triamcinol 6-18 S pirit one) one) 00:00: - [facility] Kenalog Kenalog 2020-0 No 40mg Common (Triamcinol (Triamcinol 6-18 S pirit one) one) 00:00: - [facility] Kenalog Kenalog 2020-0 No 40mg Common (Triamcinol (Triamcinol 6-18 S pirit one) one) 00:00: - [facility] Kenalog Kenalog 2020-0 No 40mg Common (Triamcinol (Triamcinol 6-18 S pirit one) one) 00:00: - [facility] Kenalog Kenalog 2020-0 No 40mg Common (Triamcinol (Triamcinol 6-18 S pirit one) one) 00:00: - [facility] Kenalog Kenalog 2020-0 No 40mg Common (Triamcinol (Triamcinol 6-18 S pirit one) one) 00:00: - [facility] Kenalog Kenalog 2020-0 No 40mg Common (Triamcinol (Triamcinol 6-18 S pirit one) one) 00:00: - [facility] Kenalog Kenalog 2020-0 No 40mg Common (Triamcinol (Triamcinol 6-18 S pirit one) one) 00:00: - [facility] Kenalog Kenalog 2020-0 No 40mg Common (Triamcinol (Triamcinol 6-18 S pirit one) one) 00:00: - [facility] Kenalog Kenalog 2020-0 No 40mg Common (Triamcinol (Triamcinol 6-18 S pirit one) one) 00:00: - [facility] Kenalog Kenalog 2020-0 No 40mg Common (Triamcinol (Triamcinol 6-18 S pirit one) one) 00:00: - [facility] Kenalog Kenalog 2020-0 No 40mg Common (Triamcinol (Triamcinol 6-18 S pirit one) one) 00:00: - [facility] Kenalog Kenalog 2020-0 No 40mg Common (Triamcinol (Triamcinol 6-18 S pirit one) one) 00:00: - [facility] Vitamin B12 Vitamin B12 2020-0 No 1000ug Common (Cyanocobal (Cyanocobal 3-10 S pirit rivera) rivera) 00:00: - [facility] Vitamin B12 Vitamin B12 2020-0 No 1000ug Common (Cyanocobal (Cyanocobal 3-10 S pirit rivera) rivera) 00:00: - [facility] Vitamin B12 Vitamin B12 2020-0 No 1000ug Common (Cyanocobal (Cyanocobal 3-10 S pirit rivera) rivera) 00:00: - [facility] Vitamin B12 Vitamin B12 2020-0 No 1000ug Common (Cyanocobal (Cyanocobal 3-10 S pirit rivera) rivera) 00:00: - [facility] Vitamin B12 Vitamin B12 2020-0 No 1000ug Common (Cyanocobal (Cyanocobal 3-10 S pirit rivera) rivera) 00:00: - [facility] Vitamin B12 Vitamin B12 2020-0 No 1000ug Common (Cyanocobal (Cyanocobal 3-10 S pirit rivera) rivera) 00:00: - [facility] Vitamin B12 Vitamin B12 2020-0 No 1000ug Common (Cyanocobal (Cyanocobal 3-10 S pirit rivera) rivera) 00:00: - [facility] Vitamin B12 Vitamin B12 2020-0 No 1000ug Common (Cyanocobal (Cyanocobal 3-10 S pirit rivera) rivera) 00:00: - [facility] Vitamin B12 Vitamin B12 2020-0 No 1000ug Common (Cyanocobal (Cyanocobal 3-10 S pirit rivera) rivera) 00:00: - [facility] Vitamin B12 Vitamin B12 2020-0 No 1000ug Common (Cyanocobal (Cyanocobal 3-10 S pirit rivera) rivera) 00:00: - [facility] Vitamin B12 Vitamin B12 2020-0 No 1000ug Common (Cyanocobal (Cyanocobal 3-10 S pirit rivera) rivera) 00:00: - [facility] Vitamin B12 Vitamin B12 2020-0 No 1000ug Common (Cyanocobal (Cyanocobal 3-10 S pirit rivera) rivera) 00:00: - [facility] Vitamin B12 Vitamin B12 2020-0 No 1000ug Common (Cyanocobal (Cyanocobal 3-10 S pirit rivera) rivera) 00:00: - [facility] Vitamin B12 Vitamin B12 2020-0 No 1000ug Common (Cyanocobal (Cyanocobal 3-10 S pirit rivera) rivera) 00:00: - [facility] Vitamin B12 Vitamin B12 2020-0 No 1000ug Common (Cyanocobal (Cyanocobal 3-10 S pirit rivera) rivera) 00:00: - [facility] Vitamin B12 Vitamin B12 2020-0 No 1000ug Common (Cyanocobal (Cyanocobal 3-10 S pirit rivera) rivera) 00:00: - [facility] Vitamin B12 Vitamin B12 2020-0 No 1000ug Common (Cyanocobal (Cyanocobal 3-10 S pirit rivera) rivera) 00:00: - [facility] Vitamin B12 Vitamin B12 2020-0 No 1000ug Common (Cyanocobal (Cyanocobal 3-10 S pirit rivera) rivera) 00:00: - [facility] Vitamin B12 Vitamin B12 2020-0 No 1000ug Common (Cyanocobal (Cyanocobal 3-10 S pirit rivera) rivera) 00:00: - [facility] Vitamin B12 Vitamin B12 2020-0 No 1000ug Common (Cyanocobal (Cyanocobal 3-10 S pirit rivera) rivera) 00:00: - [facility] Vitamin B12 Vitamin B12 2020-0 No 1000ug Common (Cyanocobal (Cyanocobal 3-10 S pirit rivera) rivera) 00:00: - [facility] Vitamin B12 Vitamin B12 2020-0 No 1000ug Common (Cyanocobal (Cyanocobal 3-10 S pirit rivera) rivera) 00:00: - [facility] Vitamin B12 Vitamin B12 2020-0 No 1000ug Common (Cyanocobal (Cyanocobal 3-10 S pirit rivera) rivera) 00:00: - [facility] Vitamin B12 Vitamin B12 2020-0 No 1000ug Common (Cyanocobal (Cyanocobal 3-10 S pirit rivera) rivera) 00:00: - [facility] Vitamin B12 Vitamin B12 2020-0 No 1000ug Common (Cyanocobal (Cyanocobal 3-10 S pirit rivera) rivera) 00:00: - [facility] Vitamin B12 Vitamin B12 2020-0 No 1000ug Common (Cyanocobal (Cyanocobal 3-10 S pirit rivera) rivera) 00:00: - [facility] Vitamin B12 Vitamin B12 2020-0 No 1000ug Common (Cyanocobal (Cyanocobal 3-10 S pirit rivera) rivera) 00:00: - [facility] Vitamin B12 Vitamin B12 2020-0 No 1000ug Common (Cyanocobal (Cyanocobal 3-10 S pirit rivera) rivera) 00:00: - [facility] Vitamin B12 Vitamin B12 2020-0 No 1000ug Common (Cyanocobal (Cyanocobal 3-10 S pirit rivera) rivera) 00:00: - [facility] Vitamin B12 Vitamin B12 2020-0 No 1000ug Common (Cyanocobal (Cyanocobal 3-10 S pirit rivera) rivera) 00:00: - [facility] Vitamin B12 Vitamin B12 2020-0 No 1000ug Common (Cyanocobal (Cyanocobal 3-10 S pirit rivera) rivera) 00:00: - [facility] Vitamin B12 Vitamin B12 2020-0 No 1000ug Common (Cyanocobal (Cyanocobal 3-10 S pirit rivera) rivera) 00:00: - [facility] Vitamin B12 Vitamin B12 2020-0 No 1000ug Common (Cyanocobal (Cyanocobal 3-10 S pirit rivera) rivera) 00:00: - [facility] Vitamin B12 Vitamin B12 2020-0 No 1000ug Common (Cyanocobal (Cyanocobal 3-10 S pirit rivera) rivera) 00:00: - [facility] Vitamin B12 Vitamin B12 2020-0 No 1000ug Common (Cyanocobal (Cyanocobal 3-10 S pirit rivera) rivera) 00:00: - [facility] Vitamin B12 Vitamin B12 2020-0 No 1000ug Common (Cyanocobal (Cyanocobal 3-10 S pirit rivera) rivera) 00:00: - [facility] Vitamin B12 Vitamin B12 2020-0 No 1000ug Common (Cyanocobal (Cyanocobal 3-10 S pirit rivera) rivera) 00:00: - [facility] Vitamin B12 Vitamin B12 2020-0 No 1000ug Common (Cyanocobal (Cyanocobal 3-10 S pirit rivera) rivera) 00:00: - [facility] Vitamin B12 Vitamin B12 2020-0 No 1000ug Common (Cyanocobal (Cyanocobal 2-18 S pirit rivera) rivera) 00:00: - [facility] Vitamin B12 Vitamin B12 2020-0 No 1000ug Common (Cyanocobal (Cyanocobal 2-18 S pirit rivera) rivera) 00:00: - [facility] Vitamin B12 Vitamin B12 2020-0 No 1000ug Common (Cyanocobal (Cyanocobal 2-18 S pirit rivera) rivera) 00:00: - [facility] Vitamin B12 Vitamin B12 2020-0 No 1000ug Common (Cyanocobal (Cyanocobal 2-18 S pirit rivera) irvera) 00:00: - [facility] Vitamin B12 Vitamin B12 2020-0 No 1000ug Common (Cyanocobal (Cyanocobal 2-18 S pirit rivera) rivera) 00:00: - [facility] Vitamin B12 Vitamin B12 2020-0 No 1000ug Common (Cyanocobal (Cyanocobal 2-18 S pirit rivera) rivera) 00:00: - [facility] Vitamin B12 Vitamin B12 2020-0 No 1000ug Common (Cyanocobal (Cyanocobal 2-18 S pirit rivera) rivera) 00:00: - [facility] Vitamin B12 Vitamin B12 2020-0 No 1000ug Common (Cyanocobal (Cyanocobal 2-18 S pirit rivera) rivera) 00:00: - [facility] Vitamin B12 Vitamin B12 2020-0 No 1000ug Common (Cyanocobal (Cyanocobal 2-18 S pirit rivera) rivera) 00:00: - [facility] Vitamin B12 Vitamin B12 2020-0 No 1000ug Common (Cyanocobal (Cyanocobal 2-18 S pirit rivera) rivera) 00:00: - [facility] Vitamin B12 Vitamin B12 2020-0 No 1000ug Common (Cyanocobal (Cyanocobal 2-18 S pirit rivera) rivera) 00:00: - [facility] Vitamin B12 Vitamin B12 2020-0 No 1000ug Common (Cyanocobal (Cyanocobal 2-18 S pirit rivera) rivera) 00:00: - [facility] Vitamin B12 Vitamin B12 2020-0 No 1000ug Common (Cyanocobal (Cyanocobal 2-18 S pirit rivera) rivera) 00:00: - [facility] Vitamin B12 Vitamin B12 2020-0 No 1000ug Common (Cyanocobal (Cyanocobal 2-18 S pirit rivera) rivera) 00:00: - [facility] Vitamin B12 Vitamin B12 2020-0 No 1000ug Common (Cyanocobal (Cyanocobal 2-18 S pirit rivera) rivera) 00:00: - [facility] Vitamin B12 Vitamin B12 2020-0 No 1000ug Common (Cyanocobal (Cyanocobal 2-18 S pirit rivera) rivera) 00:00: - [facility] Vitamin B12 Vitamin B12 2020-0 No 1000ug Common (Cyanocobal (Cyanocobal 2-18 S pirit rivera) rivera) 00:00: - [facility] Vitamin B12 Vitamin B12 2020-0 No 1000ug Common (Cyanocobal (Cyanocobal 2-18 S pirit rivera) rivera) 00:00: - [facility] Vitamin B12 Vitamin B12 2020-0 No 1000ug Common (Cyanocobal (Cyanocobal 2-18 S pirit rivera) rivera) 00:00: - [facility] Vitamin B12 Vitamin B12 2020-0 No 1000ug Common (Cyanocobal (Cyanocobal 2-18 S pirit rivera) rivera) 00:00: - [facility] Vitamin B12 Vitamin B12 2020-0 No 1000ug Common (Cyanocobal (Cyanocobal 2-18 S pirit rivera) rivera) 00:00: - [facility] Vitamin B12 Vitamin B12 2020-0 No 1000ug Common (Cyanocobal (Cyanocobal 2-18 S pirit rivera) rivera) 00:00: - [facility] Vitamin B12 Vitamin B12 2020-0 No 1000ug Common (Cyanocobal (Cyanocobal 2-18 S pirit rivera) rivera) 00:00: - [facility] Vitamin B12 Vitamin B12 2020-0 No 1000ug Common (Cyanocobal (Cyanocobal 2-18 S pirit rivera) rivera) 00:00: - [facility] Vitamin B12 Vitamin B12 2020-0 No 1000ug Common (Cyanocobal (Cyanocobal 2-18 S pirit rivera) rivera) 00:00: - [facility] Vitamin B12 Vitamin B12 2020-0 No 1000ug Common (Cyanocobal (Cyanocobal 2-18 S pirit rivera) rivera) 00:00: - [facility] Vitamin B12 Vitamin B12 2020-0 No 1000ug Common (Cyanocobal (Cyanocobal 2-18 S pirit rivera) rivera) 00:00: - [facility] Vitamin B12 Vitamin B12 2020-0 No 1000ug Common (Cyanocobal (Cyanocobal 2-18 S pirit rivera) rivera) 00:00: - [facility] Vitamin B12 Vitamin B12 2020-0 No 1000ug Common (Cyanocobal (Cyanocobal 2-18 S pirit rivera) rivera) 00:00: - [facility] Vitamin B12 Vitamin B12 2020-0 No 1000ug Common (Cyanocobal (Cyanocobal 2-18 S pirit rivera) rivera) 00:00: - [facility] Vitamin B12 Vitamin B12 2020-0 No 1000ug Common (Cyanocobal (Cyanocobal 2-18 S pirit rivera) rivera) 00:00: - [facility] Vitamin B12 Vitamin B12 2020-0 No 1000ug Common (Cyanocobal (Cyanocobal 2-18 S pirit rivera) rivera) 00:00: - [facility] Vitamin B12 Vitamin B12 2020-0 No 1000ug Common (Cyanocobal (Cyanocobal 2-18 S pirit rivera) rivera) 00:00: - [facility] Vitamin B12 Vitamin B12 2020-0 No 1000ug Common (Cyanocobal (Cyanocobal 2-18 S pirit rivera) rivera) 00:00: - [facility] Vitamin B12 Vitamin B12 2020-0 No 1000ug Common (Cyanocobal (Cyanocobal 2-18 S pirit rivera) rivera) 00:00: - [facility] Vitamin B12 Vitamin B12 2020-0 No 1000ug Common (Cyanocobal (Cyanocobal 2-18 S pirit rivera) rivera) 00:00: - [facility] Vitamin B12 Vitamin B12 2020-0 No 1000ug Common (Cyanocobal (Cyanocobal 2-18 S pirit rivera) rivera) 00:00: - [facility] Vitamin B12 Vitamin B12 2020-0 No 1000ug Common (Cyanocobal (Cyanocobal 2-18 S pirit rivera) rivera) 00:00: - [facility] Vitamin B12 Vitamin B12 2020-0 No 1000ug Common (Cyanocobal (Cyanocobal 1-08 S pirit rivera) rivera) 00:00: - [facility] Vitamin B12 Vitamin B12 2020-0 No 1000ug Common (Cyanocobal (Cyanocobal 1-08 S pirit rivera) rivera) 00:00: - [facility] Vitamin B12 Vitamin B12 2020-0 No 1000ug Common (Cyanocobal (Cyanocobal 1-08 S pirit rivera) rivera) 00:00: - [facility] Vitamin B12 Vitamin B12 2020-0 No 1000ug Common (Cyanocobal (Cyanocobal 1-08 S pirit rivera) rivera) 00:00: - [facility] Vitamin B12 Vitamin B12 2020-0 No 1000ug Common (Cyanocobal (Cyanocobal 1-08 S pirit rivera) rivera) 00:00: - [facility] Vitamin B12 Vitamin B12 2020-0 No 1000ug Common (Cyanocobal (Cyanocobal 1-08 S pirit rivera) rivera) 00:00: - [facility] Vitamin B12 Vitamin B12 2020-0 No 1000ug Common (Cyanocobal (Cyanocobal 1-08 S pirit rivera) rivera) 00:00: - [facility] Vitamin B12 Vitamin B12 2020-0 No 1000ug Common (Cyanocobal (Cyanocobal 1-08 S pirit rivera) rivera) 00:00: - [facility] Vitamin B12 Vitamin B12 2020-0 No 1000ug Common (Cyanocobal (Cyanocobal 1-08 S pirit rivera) rivera) 00:00: - [facility] Vitamin B12 Vitamin B12 2020-0 No 1000ug Common (Cyanocobal (Cyanocobal 1-08 S pirit rivera) rivera) 00:00: - [facility] Vitamin B12 Vitamin B12 2020-0 No 1000ug Common (Cyanocobal (Cyanocobal 1-08 S pirit rivera) rivera) 00:00: - [facility] Vitamin B12 Vitamin B12 2020-0 No 1000ug Common (Cyanocobal (Cyanocobal 1-08 S pirit rivera) rivera) 00:00: - [facility] Vitamin B12 Vitamin B12 2020-0 No 1000ug Common (Cyanocobal (Cyanocobal 1-08 S pirit rivera) rivera) 00:00: - [facility] Vitamin B12 Vitamin B12 2020-0 No 1000ug Common (Cyanocobal (Cyanocobal 1-08 S pirit rivera) rivera) 00:00: - [facility] Vitamin B12 Vitamin B12 2020-0 No 1000ug Common (Cyanocobal (Cyanocobal 1-08 S pirit rivera) rivera) 00:00: - [facility] Vitamin B12 Vitamin B12 2020-0 No 1000ug Common (Cyanocobal (Cyanocobal 1-08 S pirit rivera) rivera) 00:00: - [facility] Vitamin B12 Vitamin B12 2020-0 No 1000ug Common (Cyanocobal (Cyanocobal 1-08 S pirit rivera) rivera) 00:00: - [facility] Vitamin B12 Vitamin B12 2020-0 No 1000ug Common (Cyanocobal (Cyanocobal 1-08 S pirit rivera) rivera) 00:00: - [facility] Vitamin B12 Vitamin B12 2020-0 No 1000ug Common (Cyanocobal (Cyanocobal 1-08 S pirit rivera) rivera) 00:00: - [facility] Vitamin B12 Vitamin B12 2020-0 No 1000ug Common (Cyanocobal (Cyanocobal 1-08 S pirit rievra) rivera) 00:00: - [facility] Vitamin B12 Vitamin B12 2020-0 No 1000ug Common (Cyanocobal (Cyanocobal 1-08 S pirit rivera) rivera) 00:00: - [facility] Vitamin B12 Vitamin B12 2020-0 No 1000ug Common (Cyanocobal (Cyanocobal 1-08 S pirit rivera) rivera) 00:00: - [facility] Vitamin B12 Vitamin B12 2020-0 No 1000ug Common (Cyanocobal (Cyanocobal 1-08 S pirit rivera) rivera) 00:00: - [facility] Vitamin B12 Vitamin B12 2020-0 No 1000ug Common (Cyanocobal (Cyanocobal 1-08 S pirit rivera) rivera) 00:00: - [facility] Vitamin B12 Vitamin B12 2020-0 No 1000ug Common (Cyanocobal (Cyanocobal 1-08 S pirit rivera) rivera) 00:00: - [facility] Vitamin B12 Vitamin B12 2020-0 No 1000ug Common (Cyanocobal (Cyanocobal 1-08 S pirit rivera) rivera) 00:00: - [facility] Vitamin B12 Vitamin B12 2020-0 No 1000ug Common (Cyanocobal (Cyanocobal 1-08 S pirit rivera) rivera) 00:00: - [facility] Vitamin B12 Vitamin B12 2020-0 No 1000ug Common (Cyanocobal (Cyanocobal 1-08 S pirit rivera) rivera) 00:00: - [facility] Vitamin B12 Vitamin B12 2020-0 No 1000ug Common (Cyanocobal (Cyanocobal 1-08 S pirit rivera) rivera) 00:00: - [facility] Vitamin B12 Vitamin B12 2020-0 No 1000ug Common (Cyanocobal (Cyanocobal 1-08 S pirit irvera) rivera) 00:00: - [facility] Vitamin B12 Vitamin B12 2020-0 No 1000ug Common (Cyanocobal (Cyanocobal 1-08 S pirit rivera) rivera) 00:00: - [facility] Vitamin B12 Vitamin B12 2020-0 No 1000ug Common (Cyanocobal (Cyanocobal 1-08 S pirit rivera) rivera) 00:00: - [facility] Vitamin B12 Vitamin B12 2020-0 No 1000ug Common (Cyanocobal (Cyanocobal 1-08 S pirit rivera) rivera) 00:00: - [facility] Vitamin B12 Vitamin B12 2020-0 No 1000ug Common (Cyanocobal (Cyanocobal 1-08 S pirit rivera) rivera) 00:00: - [facility] Vitamin B12 Vitamin B12 2020-0 No 1000ug Common (Cyanocobal (Cyanocobal 1-08 S pirit rivera) rivera) 00:00: - [facility] Vitamin B12 Vitamin B12 2020-0 No 1000ug Common (Cyanocobal (Cyanocobal 1-08 S pirit rivera) rivera) 00:00: - [facility] Vitamin B12 Vitamin B12 2020-0 No 1000ug Common (Cyanocobal (Cyanocobal 1-08 S pirit rivera) rivera) 00:00: - [facility] Vitamin B12 Vitamin B12 2020-0 No 1000ug Common (Cyanocobal (Cyanocobal 1-08 S pirit rivera) rivera) 00:00: - [facility] 00 [facility] Kenalog Kenalog 2019-1 No 1mL Common (Triamcinol (Triamcinol 0-15 S pirit one) one) 00:00: - [facility] LIDOCAINE LIDOCAINE 2019-1 No 5mL Com mon HCL 10MG/ML HCL 10MG/ML 0-15 S pirit 00:00: - [facility] 00 [facility] Kenalog Kenalog 2019-1 No 1mL Common (Triamcinol (Triamcinol 0-15 S pirit one) one) 00:00: - [facility] LIDOCAINE LIDOCAINE 2019-1 No 5mL Com mon HCL 10MG/ML HCL 10MG/ML 0-15 S pirit 00:00: - [facility] 00 [facility] Kenalog Kenalog 2019-1 No 1mL Common (Triamcinol (Triamcinol 0-15 S pirit one) one) 00:00: - [facility] LIDOCAINE LIDOCAINE 2019-1 No 5mL Com mon HCL 10MG/ML HCL 10MG/ML 0-15 S pirit 00:00: - [facility] 00 [facility] Kenalog Kenalog 2019-1 No 1mL Common (Triamcinol (Triamcinol 0-15 S pirit one) one) 00:00: - [facility] 00 [facility] LIDOCAINE LIDOCAINE 2019-1 No 5mL Com mon HCL 10MG/ML HCL 10MG/ML 0-15 S pirit 00:00: - [facility] 00 [facility] Kenalog Kenalog 2019-1 No 1mL Common (Triamcinol (Triamcinol 0-15 S pirit one) one) 00:00: - [facility] 00 [facility] LIDOCAINE LIDOCAINE 2019-1 No 5mL Com mon HCL 10MG/ML HCL 10MG/ML 0-15 S pirit 00:00: - [facility] 00 [facility] Kenalog Kenalog 2019-1 No 1mL Common (Triamcinol (Triamcinol 0-15 S pirit one) one) 00:00: - [facility] 00 [facility] LIDOCAINE LIDOCAINE 2019-1 No 5mL Com mon HCL 10MG/ML HCL 10MG/ML 0-15 S pirit 00:00: - [facility] Kenalog Kenalog 2019-1 No 1mL Common (Triamcinol (Triamcinol 0-15 S pirit one) one) 00:00: - [facility] 00 [facility] LIDOCAINE LIDOCAINE 2019-1 No 5mL Com mon HCL 10MG/ML HCL 10MG/ML 0-15 S pirit 00:00: - [facility] Kenalog Kenalog 2019-1 No 1mL Common (Triamcinol (Triamcinol 0-15 S pirit one) one) 00:00: - [facility] LIDOCAINE LIDOCAINE 2019-1 No 5mL Com mon HCL 10MG/ML HCL 10MG/ML 0-15 S pirit 00:00: - [facility] 00 [facility] Kenalog Kenalog 2019-1 No 1mL Common (Triamcinol (Triamcinol 0-15 S pirit one) one) 00:00: - [facility] LIDOCAINE LIDOCAINE 2019-1 No 5mL Com mon HCL 10MG/ML HCL 10MG/ML 0-15 S pirit 00:00: - [facility] Kenalog Kenalog 2019-1 No 1mL Common (Triamcinol (Triamcinol 0-15 S pirit one) one) 00:00: - [facility] LIDOCAINE LIDOCAINE 2019-1 No 5mL Com mon HCL 10MG/ML HCL 10MG/ML 0-15 S pirit 00:00: - [facility] 00 [facility] LIDOCAINE LIDOCAINE 2019-1 No 5mL Com mon HCL 10MG/ML HCL 10MG/ML 0-15 S pirit 00:00: - [facility] 00 [facility] Kenalog Kenalog 2019-1 No 1mL Common (Triamcinol (Triamcinol 0-15 S pirit one) one) 00:00: - [facility] LIDOCAINE LIDOCAINE 2019-1 No 5mL Com mon HCL 10MG/ML HCL 10MG/ML 0-15 S pirit 00:00: - [facility] 00 [facility] Kenalog Kenalog 2019-1 No 1mL Common (Triamcinol (Triamcinol 0-15 S pirit one) one) 00:00: - [facility] LIDOCAINE LIDOCAINE 2019-1 No 5mL Com mon HCL 10MG/ML HCL 10MG/ML 0-15 S pirit 00:00: - [facility] 00 [facility] Kenalog Kenalog 2019-1 No 1mL Common (Triamcinol (Triamcinol 0-15 S pirit one) one) 00:00: - [facility] 00 [facility] LIDOCAINE LIDOCAINE 2019-1 No 5mL Com mon HCL 10MG/ML HCL 10MG/ML 0-15 S pirit 00:00: - [facility] 00 [facility] LIDOCAINE LIDOCAINE 2019-1 No 5mL Com mon HCL 10MG/ML HCL 10MG/ML 0-15 S pirit 00:00: - [facility] Kenalog Kenalog 2019-1 No 1mL Common (Triamcinol (Triamcinol 0-15 S pirit one) one) 00:00: - [facility] 00 [facility] LIDOCAINE LIDOCAINE 2019-1 No 5mL Com mon HCL 10MG/ML HCL 10MG/ML 0-15 S pirit 00:00: - [facility] 00 [facility] Kenalog Kenalog 2019-1 No 1mL Common (Triamcinol (Triamcinol 0-15 S pirit one) one) 00:00: - [facility] LIDOCAINE LIDOCAINE 2019-1 No 5mL Com mon HCL 10MG/ML HCL 10MG/ML 0-15 S pirit 00:00: - [facility] Kenalog Kenalog 2019-1 No 1mL Common (Triamcinol (Triamcinol 0-15 S pirit one) one) 00:00: - [facility] 00 [facility] Kenalog Kenalog 2019-1 No 1mL Common (Triamcinol (Triamcinol 0-15 S pirit one) one) 00:00: - [facility] LIDOCAINE LIDOCAINE 2019-1 No 5mL Com mon HCL 10MG/ML HCL 10MG/ML 0-15 S pirit 00:00: - [facility] 00 [facility] Kenalog Kenalog 2019-1 No 1mL Common (Triamcinol (Triamcinol 0-15 S pirit one) one) 00:00: - [facility] 00 [facility] LIDOCAINE LIDOCAINE 2019-1 No 5mL Com mon HCL 10MG/ML HCL 10MG/ML 0-15 S pirit 00:00: - [facility] 00 [facility] Kenalog Kenalog 2019-1 No 1mL Common (Triamcinol (Triamcinol 0-15 S pirit one) one) 00:00: - [facility] 00 [facility] LIDOCAINE LIDOCAINE 2019-1 No 5mL Com mon HCL 10MG/ML HCL 10MG/ML 0-15 S pirit 00:00: - [facility] 00 [facility] Kenalog Kenalog 2019-1 No 1mL Common (Triamcinol (Triamcinol 0-15 S pirit one) one) 00:00: - [facility] 00 [facility] LIDOCAINE LIDOCAINE 2019-1 No 5mL Com mon HCL 10MG/ML HCL 10MG/ML 0-15 S pirit 00:00: - [facility] 00 [facility] Kenalog Kenalog 2019-1 No 1mL Common (Triamcinol (Triamcinol 0-15 S pirit one) one) 00:00: - [facility] 00 [facility] LIDOCAINE LIDOCAINE 2019-1 No 5mL Com mon HCL 10MG/ML HCL 10MG/ML 0-15 S pirit 00:00: - [facility] 00 [facility] Kenalog Kenalog 2019-1 No 1mL Common (Triamcinol (Triamcinol 0-15 S pirit one) one) 00:00: - [facility] 00 [facility] LIDOCAINE LIDOCAINE 2019-1 No 5mL Com mon HCL 10MG/ML HCL 10MG/ML 0-15 S pirit 00:00: - [facility] 00 [facility] Kenalog Kenalog 2019-1 No 1mL Common (Triamcinol (Triamcinol 0-15 S pirit one) one) 00:00: - [facility] 00 [facility] LIDOCAINE LIDOCAINE 2019-1 No 5mL Com mon HCL 10MG/ML HCL 10MG/ML 0-15 S pirit 00:00: - [facility] Kenalog Kenalog 2019- No 1mL Common (Triamcinol (Triamcinol 0-15 S pirit one) one) 00:00: - [facility] LIDOCAINE LIDOCAINE 2019-1 No 5mL Com mon HCL 10MG/ML HCL 10MG/ML 0-15 S pirit 00:00: - [facility] 00 [facility] Kenalog Kenalog 2019-1 No 1mL Common (Triamcinol (Triamcinol 0-15 S pirit one) one) 00:00: - [facility] LIDOCAINE LIDOCAINE 2019-1 No 5mL Com mon HCL 10MG/ML HCL 10MG/ML 0-15 S pirit 00:00: - [facility] 00 [facility] Kenalog Kenalog 2019- No 1mL Common (Triamcinol (Triamcinol 0-15 S pirit one) one) 00:00: - [facility] 00 [facility] LIDOCAINE LIDOCAINE 2019-1 No 5mL Com mon HCL 10MG/ML HCL 10MG/ML 0-15 S pirit 00:00: - [facility] 00 [facility] Kenalog Kenalog 2019- No 1mL Common (Triamcinol (Triamcinol 0-15 S pirit one) one) 00:00: - [facility] 00 [facility] LIDOCAINE LIDOCAINE 2019-1 No 5mL Com mon HCL 10MG/ML HCL 10MG/ML 0-15 S pirit 00:00: - [facility] 00 [facility] Kenalog Kenalog 2019-1 No 1mL Common (Triamcinol (Triamcinol 0-15 S pirit one) one) 00:00: - [facility] 00 [facility] LIDOCAINE LIDOCAINE 2019-1 No 5mL Com mon HCL 10MG/ML HCL 10MG/ML 0-15 S pirit 00:00: - [facility] 00 [facility] Kenalog Kenalog 2019-1 No 1mL Common (Triamcinol (Triamcinol 0-15 S pirit one) one) 00:00: - [facility] 00 [facility] LIDOCAINE LIDOCAINE 2019-1 No 5mL Com mon HCL 10MG/ML HCL 10MG/ML 0-15 S pirit 00:00: - [facility] 00 [facility] Kenalog Kenalog 2019- No 1mL Common (Triamcinol (Triamcinol 0-15 S pirit one) one) 00:00: - [facility] 00 [facility] LIDOCAINE LIDOCAINE 2019-1 No 5mL Com mon HCL 10MG/ML HCL 10MG/ML 0-15 S pirit 00:00: - [facility] 00 [facility] Kenalog Kenalog 2019-1 No 1mL Common (Triamcinol (Triamcinol 0-15 S pirit one) one) 00:00: - [facility] 00 [facility] LIDOCAINE LIDOCAINE 2019-1 No 5mL Com mon HCL 10MG/ML HCL 10MG/ML 0-15 S pirit 00:00: - [facility] 00 [facility] Kenalog Kenalog 2019-1 No 1mL Common (Triamcinol (Triamcinol 0-15 S pirit one) one) 00:00: - [facility] 00 [facility] LIDOCAINE LIDOCAINE 2019-1 No 5mL Com mon HCL 10MG/ML HCL 10MG/ML 0-15 S pirit 00:00: - [facility] Kenalog Kenalog 2019- No 1mL Common (Triamcinol (Triamcinol 0-15 S pirit one) one) 00:00: - [facility] 00 [facility] LIDOCAINE LIDOCAINE 2019-1 No 5mL Com mon HCL 10MG/ML HCL 10MG/ML 0-15 S pirit 00:00: - [facility] 00 [facility] Kenalog Kenalog 2019-1 No 1mL Common (Triamcinol (Triamcinol 0-15 S pirit one) one) 00:00: - [facility] 00 [facility] LIDOCAINE LIDOCAINE 2019-1 No 5mL Com mon HCL 10MG/ML HCL 10MG/ML 0-15 S pirit 00:00: - [facility] 00 [facility] Kenalog Kenalog 2019-1 No 1mL Common (Triamcinol (Triamcinol 0-15 S pirit one) one) 00:00: - [facility] Kenalog Kenalog 2019-1 No 1mL Common (Triamcinol (Triamcinol 0-15 S pirit one) one) 00:00: - [facility] 00 [facility] LIDOCAINE LIDOCAINE 2019-1 No 5mL Com mon HCL 10MG/ML HCL 10MG/ML 0-15 S pirit 00:00: - [facility] 00 [facility] Kenalog Kenalog 2019-1 No 1mL Common (Triamcinol (Triamcinol 0-15 S pirit one) one) 00:00: - [facility] LIDOCAINE LIDOCAINE 2019-1 No 5mL Com mon HCL 10MG/ML HCL 10MG/ML 0-15 S pirit 00:00: - [facility] 00 [facility] Kenalog Kenalog 2019-1 No 1mL Common (Triamcinol (Triamcinol 0-15 S pirit one) one) 00:00: - [facility] 00 [facility] LIDOCAINE LIDOCAINE 2019-1 No 5mL Com mon HCL 10MG/ML HCL 10MG/ML 0-15 S pirit 00:00: - [facility] 00 [facility] Kenalog 2019-0 No 40mg Common (Triamcinol (Triamcinol 8-20 S pirit one) one) 00:00: - [facility] 00 [facility] 2019-0 No 40mg Common (Triamcinol (Triamcinol 8-20 S pirit one) one) 00:00: - [facility] 00 [facility] 2019-0 No 40mg Common (Triamcinol (Triamcinol 8-20 S pirit one) one) 00:00: - [facility] 2019-0 No 40mg Common (Triamcinol (Triamcinol 8-20 S pirit one) one) 00:00: - [facility] 00 [facility] [place] Kenalog 2019-0 No 40mg Common (Triamcinol (Triamcinol 8-20 S pirit one) one) 00:00: - [facility] 00 [facility] [place] Kenalog 2019-0 No 40mg Common (Triamcinol (Triamcinol 8-20 S pirit one) one) 00:00: - [facility] 00 [facility] 2019-0 No 40mg Common (Triamcinol (Triamcinol 8-20 S pirit one) one) 00:00: - [facility] 00 [facility] Ken[facility] 2019-0 No 40mg Common (Triamcinol (Triamcinol 8-20 S pirit one) one) 00:00: - [facility] 00 [facility] Kenalog Kenalog 2019-0 No 40mg Common (Triamcinol (Triamcinol 8-20 S pirit one) one) 00:00: - [facility] 00 [facility] Kenalog Kenalog 2019-0 No 40mg Common (Triamcinol (Triamcinol 8-20 S pirit one) one) 00:00: - [facility] 00 [facility] Kenalog Kenalog 2019-0 No 40mg Common (Triamcinol (Triamcinol 8-20 S pirit one) one) 00:00: - [facility] 00 [facility] Kenalog Kenalog 2019-0 No 40mg Common (Triamcinol (Triamcinol 8-20 S pirit one) one) 00:00: - [facility] 00 [facility] Kenalog Kenalog 2019-0 No 40mg Common (Triamcinol (Triamcinol 8-20 S pirit one) one) 00:00: - [facility] 00 [facility] Kenalog Kenalog 2019-0 No 40mg Common (Triamcinol (Triamcinol 8-20 S pirit one) one) 00:00: - [facility] 00 [facility] Kenalog Kenalog 2019-0 No 40mg Common (Triamcinol (Triamcinol 8-20 S pirit one) one) 00:00: - [facility] 00 [facility] Kenalog Kenalog 2019-0 No 40mg Common (Triamcinol (Triamcinol 8-20 S pirit one) one) 00:00: - [facility] 00 [facility] Kenalog Kenalog 2019-0 No 40mg Common (Triamcinol (Triamcinol 8-20 S pirit one) one) 00:00: - [facility] 00 [facility] Kenalog Kenalog 2019-0 No 40mg Common (Triamcinol (Triamcinol 8-20 S pirit one) one) 00:00: - [facility] Kenalog Kenalog 2019-0 No 40mg Common (Triamcinol (Triamcinol 8-20 S pirit one) one) 00:00: - [facility] Kenalog Kenalog 2019-0 No 40mg Common (Triamcinol (Triamcinol 8-20 S pirit one) one) 00:00: - [facility] 00 [facility] Kenalog Kenalog 2019-0 No 40mg Common (Triamcinol (Triamcinol 8-20 S pirit one) one) 00:00: - [facility] 00 [facility] Kenalog Kenalog 2019-0 No 40mg Common (Triamcinol (Triamcinol 8-20 S pirit one) one) 00:00: - [facility] 00 [facility] Kenalog Kenalog 2019-0 No 40mg Common (Triamcinol (Triamcinol 8-20 S pirit one) one) 00:00: - [facility] 00 [facility] [place] Kenalog 2019-0 No 40mg Common (Triamcinol (Triamcinol 8-20 S pirit one) one) 00:00: - [facility] 00 [facility] Kenalog Kenalog 2019-0 No 40mg Common (Triamcinol (Triamcinol 8-20 S pirit one) one) 00:00: - [facility] 00 [facility] Kenalog Kenalog 2019-0 No 40mg Common (Triamcinol (Triamcinol 8-20 S pirit one) one) 00:00: - [facility] 00 [facility] [place] Kenalog 2019-0 No 40mg Common (Triamcinol (Triamcinol 8-20 S pirit one) one) 00:00: - [facility] 00 [facility] Kenalog Kenalog 2019-0 No 40mg Common (Triamcinol (Triamcinol 8-20 S pirit one) one) 00:00: - [facility] 00 [facility] Kenalog Kenalog 2019-0 No 40mg Common (Triamcinol (Triamcinol 8-20 S pirit one) one) 00:00: - [facility] 00 [facility] Kenalog Kenalog 2019-0 No 40mg Common (Triamcinol (Triamcinol 8-20 S pirit one) one) 00:00: - [facility] 00 [facility] Kenalog Kenalog 2019-0 No 40mg Common (Triamcinol (Triamcinol 8-20 S pirit one) one) 00:00: - [facility] 00 [facility] Kenalog Kenalog 2019-0 No 40mg Common (Triamcinol (Triamcinol 8-20 S pirit one) one) 00:00: - [facility] 00 [facility] Kenalog Kenalog 2019-0 No 40mg Common (Triamcinol (Triamcinol 8-20 S pirit one) one) 00:00: - [facility] 00 [facility] Kenalog Kenalog 2019-0 No 40mg Common (Triamcinol (Triamcinol 8-20 S pirit one) one) 00:00: - [facility] 00 [facility] Kenalog Kenalog 2019-0 No 40mg Common (Triamcinol (Triamcinol 8-20 S pirit one) one) 00:00: - [facility] 00 [facility] [place] Kenalog 2019-0 No 40mg Common (Triamcinol (Triamcinol 8-20 S pirit one) one) 00:00: - [facility] 00 [facility] Kenalog Kenalog 2019-0 No 40mg Common (Triamcinol (Triamcinol 8-20 S pirit one) one) 00:00: - [facility] 00 [facility] [place] Kenalog 2019-0 No 40mg Common (Triamcinol (Triamcinol 8-20 S pirit one) one) 00:00: - [facility] 00 [facility] [place] Kenalog 2019-0 No 40mg Common (Triamcinol (Triamcinol 2-26 S pirit one) one) 00:00: - [facility] 00 [facility] Kenalog Kenalog 2019-0 No 40mg Common (Triamcinol (Triamcinol 2-26 S pirit one) one) 00:00: - [facility] 00 [facility] Kenalog Kenalog 2019-0 No 40mg Common (Triamcinol (Triamcinol 2-26 S pirit one) one) 00:00: - [facility] 00 [facility] Kenalog Kenalog 2019-0 No 40mg Common (Triamcinol (Triamcinol 2-26 S pirit one) one) 00:00: - [facility] 00 [facility] Kenalog Kenalog 2019-0 No 40mg Common (Triamcinol (Triamcinol 2-26 S pirit one) one) 00:00: - [facility] 00 [facility] Kenalog Kenalog 2019-0 No 40mg Common (Triamcinol (Triamcinol 2-26 S pirit one) one) 00:00: - [facility] 00 [facility] Kenalog Kenalog 2019-0 No 40mg Common (Triamcinol (Triamcinol 2-26 S pirit one) one) 00:00: - [facility] 00 [facility] Kenalog Kenalog 2019-0 No 40mg Common (Triamcinol (Triamcinol 2-26 S pirit one) one) 00:00: - [facility] 00 [facility] [place] Kenalog 2019-0 No 40mg Common (Triamcinol (Triamcinol 2-26 S pirit one) one) 00:00: - [facility] 00 [facility] [place] Kenalog 2019-0 No 40mg Common (Triamcinol (Triamcinol 2-26 S pirit one) one) 00:00: - [facility] 00 [facility] Kenalog Kenalog 2019-0 No 40mg Common (Triamcinol (Triamcinol 2-26 S pirit one) one) 00:00: - [facility] 00 [facility] [place] Kenalog 2019-0 No 40mg Common (Triamcinol (Triamcinol 2-26 S pirit one) one) 00:00: - [facility] 00 [facility] [place] Kenalog 2019-0 No 40mg Common (Triamcinol (Triamcinol 2-26 S pirit one) one) 00:00: - [facility] 00 [facility] Kenalog Kenalog 2019-0 No 40mg Common (Triamcinol (Triamcinol 2-26 S pirit one) one) 00:00: - [facility] 00 [facility] Kenalog Kenalog 2019-0 No 40mg Common (Triamcinol (Triamcinol 2-26 S pirit one) one) 00:00: - [facility] 00 [facility] Kenalog Kenalog 2019-0 No 40mg Common (Triamcinol (Triamcinol 2-26 S pirit one) one) 00:00: - [facility] 00 [facility] Kenalog Kenalog 2019-0 No 40mg Common (Triamcinol (Triamcinol 2-26 S pirit one) one) 00:00: - [facility] 00 [facility] Kenalog Kenalog 2019-0 No 40mg Common (Triamcinol (Triamcinol 2-26 S pirit one) one) 00:00: - [facility] 00 [facility] Kenalog Kenalog 2019-0 No 40mg Common (Triamcinol (Triamcinol 2-26 S pirit one) one) 00:00: - [facility] 00 [facility] Xochitl Kenalog 2019-0 No 40mg Common (Triamcinol (Triamcinol 2-26 S pirit one) one) 00:00: - [facility] 00 [facility] [place] Kenalog 2019-0 No 40mg Common (Triamcinol (Triamcinol 2-26 S pirit one) one) 00:00: - [facility] 00 [facility] Xochitl Kenalog 2019-0 No 40mg Common (Triamcinol (Triamcinol 2-26 S pirit one) one) 00:00: - [facility] 00 [facility] [place] Kenalog 2019-0 No 40mg Common (Triamcinol (Triamcinol 2-26 S pirit one) one) 00:00: - [facility] [place] Kenalog 2019-0 No 40mg Common (Triamcinol (Triamcinol 2-26 S pirit one) one) 00:00: - [facility] [place] Kenalog 2019-0 No 40mg Common (Triamcinol (Triamcinol 2-26 S pirit one) one) 00:00: - [facility] [place] Kenalog 2019-0 No 40mg Common (Triamcinol (Triamcinol 2-26 S pirit one) one) 00:00: - [facility] [place] Kenalog 2019-0 No 40mg Common (Triamcinol (Triamcinol 2-26 S pirit one) one) 00:00: - [facility] [place] Kenalog 2019-0 No 40mg Common (Triamcinol (Triamcinol 2-26 S pirit one) one) 00:00: - [facility] X[facility]l Dashalog 2019-0 No 40mg Common (Triamcinol (Triamcinol 2-26 S pirit one) one) 00:00: - [facility] Xochitl Kenalog 2019-0 No 40mg Common (Triamcinol (Triamcinol 2-26 S pirit one) one) 00:00: - [facility] X[place]it[place] Kenalog 2019-0 No 40mg Common (Triamcinol (Triamcinol 2-26 S pirit one) one) 00:00: - [facility] Xochitl Kenjama 2019-0 No 40mg Common (Triamcinol (Triamcinol 2-26 S pirit one) one) 00:00: - [facility] Xochitl Leung 2019-0 No 40mg Common (Triamcinol (Triamcinol 2-26 S pirit one) one) 00:00: - [facility] X[facility]l [place]ama 2019-0 No 40mg Common (Triamcinol (Triamcinol 2-26 S pirit one) one) 00:00: - [facility] X[place]itl [place]ama 2019-0 No 40mg Common (Triamcinol (Triamcinol 2-26 S pirit one) one) 00:00: - [facility] Xochitl [place]ama 2019-0 No 40mg Common (Triamcinol (Triamcinol 2-26 S pirit one) one) 00:00: - [facility] X[place]l Kenalog 2019-0 No 40mg Common (Triamcinol (Triamcinol 2-26 S pirit one) one) 00:00: - [facility] Xochitl Kenalog 2019-0 No 40mg Common (Triamcinol (Triamcinol 2-26 S pirit one) one) 00:00: - [facility] albuterol albuterol No albuterol Pierce sulfate HFA [...] SHORTNESS OF BREATH azelastine- azelastine- No azelastine [place] fluticasone fluticasone -fluticaso [facility] 137 mcg-50 137 [...] Bactrim DS No 1 Q12H Bactrim DS [place] 800 mg-160 800 mg-160 800 mg-160 [facility] mg tablet mg tablet mg tablet Urology Take 1 Take 1 Take 1 tablet tablet tablet every 12 every 12 every 12 hours by hours by hours by oral route oral route oral route for 14 for 14 for 14 days. days. days. celecoxib celecoxib No celecoxib [place] 200 mg 200 mg 200 mg [facility] capsule capsule capsule Urolog y TAKE 1 TAKE 1 TAKE 1 CAPSULE BY CAPSULE BY CAPSULE BY MOUTH EVERY MOUTH EVERY MOUTH DAY WITH DAY WITH EVERY DAY FOOD FOOD WITH FOOD citalopram citalopram No citalopram [place] 40 mg 40 mg 40 mg [facility] tablet TAKE tablet TAKE tablet Urology 1 TABLET BY 1 TABLET BY TAKE 1 MOUTH EVERY MOUTH EVERY TABLET BY DAY DAY MOUTH EVERY DAY dexamethaso dexamethaso No dexamethas [place] ne 4 mg ne 4 mg one 4 mg [facility] tablet TAKE tablet TAKE tablet Urology ONE TABLET ONE TABLET TAKE ONE BY MOUTH BY MOUTH TABLET BY ONCE A DAY ONCE A DAY MOUTH ONCE WITH FOOD WITH FOOD A DAY WITH FOOD dicyclomine dicyclomine No dicyclomin [place] 20 mg 20 mg e 20 mg [facility] tablet TAKE tablet TAKE tablet Urology 1 TABLET BY 1 TABLET BY TAKE 1 MOUTH FOUR MOUTH FOUR TABLET BY TIMES DAILY TIMES DAILY MOUTH FOUR TIMES DAILY famotidine famotidine No famotidine [place] 20 mg 20 mg 20 mg [facility] tablet TAKE tablet TAKE tablet Urology 1 TABLET BY 1 TABLET BY TAKE 1 MOUTH EVERY MOUTH EVERY TABLET BY 12 HOURS 12 HOURS MOUTH FOR 10 DAYS FOR 10 DAYS EVERY 12 HOURS FOR 10 DAYS hydrocodone hydrocodone No hydrocodon [place] 7.5 7.5 e 7.5 [facility] mg-acetamin mg-acetamin mg-acetami Urology ophen 325 ophen 325 nophen 325 mg tablet mg tablet mg tablet TAKE 1 TAKE 1 TAKE 1 TABLET BY TABLET BY TABLET BY MOUTH EVERY MOUTH EVERY MOUTH 12 HOURS 12 HOURS EVERY 12 NEEDED FOR NEEDED FOR HOURS PAIN PAIN NEEDED FOR PAIN lorazepam lorazepam No lorazepam [place] 0.5 mg 0.5 mg 0.5 mg [facility] tablet TAKE tablet TAKE tablet Urology 1 TABLET BY 1 TABLET BY TAKE 1 MOUTH PRIOR MOUTH PRIOR TABLET BY TO MRI. AUGUST TO MRI. AUGUST MOUTH REPEAT IN REPEAT IN PRIOR TO 15 MINUTES 15 MINUTES MRI. MAY NEEDED NEEDED REPEAT IN 15 MINUTES NEEDED montelukast montelukast No montelukas [place] 10 mg 10 mg t 10 mg [facility] tablet TAKE tablet TAKE tablet Urology 1 TABLET BY 1 TABLET BY TAKE 1 MOUTH EVERY MOUTH EVERY TABLET BY DAY DAY MOUTH EVERY DAY ondansetron ondansetron No ondansetro [place] HCl 8 mg HCl 8 mg n HCl 8 mg M etro tablet TAKE tablet TAKE tablet Urology 1 TABLET BY 1 TABLET BY TAKE 1 MOUTH TWICE MOUTH TWICE TABLET BY DAILY FOR 5 DAILY FOR 5 MOUTH DAYS DAYS TWICE DAILY FOR 5 DAYS phenazopyri phenazopyri No phenazopyr [place] dine 200 mg dine 200 mg idine 200 [facility] tablet TAKE tablet TAKE mg tablet Urology 1 TABLET BY 1 TABLET BY TAKE 1 MOUTH TWICE MOUTH TWICE TABLET BY DAILY AFTER DAILY AFTER MOUTH MEALS FOR 2 MEALS FOR 2 TWICE DAYS DAYS DAILY AFTER MEALS FOR 2 DAYS prednisone prednisone No prednisone [place] 10 mg 10 mg 10 mg [facility] tablet tablet tablet Urology Promethegan Promethegan No Promethega [place] 12.5 mg 12.5 mg n 12.5 mg Metr o rectal rectal rectal Urology suppository suppository suppositor INSERT ONE INSERT ONE y INSERT SUPPOSITORY SUPPOSITORY ONE RECTALLY RECTALLY SUPPOSITOR EVERY 12 EVERY 12 Y RECTALLY HOURS FOR HOURS FOR EVERY 12 10 DAYS 10 DAYS HOURS FOR 10 DAYS ropinirole ropinirole No ropinirole [place] 4 mg tablet 4 mg tablet 4 mg M etro TAKE 1 TAKE 1 tablet Urology TABLET BY TABLET BY TAKE 1 MOUTH EVERY MOUTH EVERY TABLET BY NIGHT 1 TO NIGHT 1 TO MOUTH 3 HOURS 3 HOURS EVERY BEFORE BEFORE NIGHT 1 TO BEDTIME BEDTIME 3 HOURS BEFORE BEDTIME tramadol 50 tramadol 50 No tramadol [place] mg tablet mg tablet 50 mg Metr o TAKE 1 TAKE 1 tablet Urology TABLET BY TABLET BY TAKE 1 MOUTH EVERY MOUTH EVERY TABLET BY 12 HOURS 12 HOURS MOUTH NEEDED FOR NEEDED FOR EVERY 12 PAIN PAIN HOURS NEEDED FOR PAIN albuterol albuterol No albuterol Pierce sulfate HFA [...] SHORTNESS OF BREATH azelastine- azelastine- No azelastine [place] fluticasone fluticasone -fluticaso [facility] 137 mcg-50 137 mcg-50 ne 137 U rology mcg/spray mcg/spray mcg-50 nasal spray nasal spray mcg/spray SHAKE SHAKE nasal LIQUID AND LIQUID AND spray USE 1 SPRAY USE 1 SPRAY SHAKE IN EACH IN EACH LIQUID AND NOSTRIL NOSTRIL USE 1 TWICE DAILY TWICE DAILY SPRAY IN EACH NOSTRIL TWICE DAILY celecoxib celecoxib No celecoxib [place] 200 mg 200 mg 200 mg [facility] capsule capsule capsule Urolog y TAKE 1 TAKE 1 TAKE 1 CAPSULE BY CAPSULE BY CAPSULE BY MOUTH EVERY MOUTH EVERY MOUTH DAY WITH DAY WITH EVERY DAY FOOD FOOD WITH FOOD ciprofloxac ciprofloxac No ciprofloxa [place] in 500 mg in 500 mg avril 500 mg [facility] tablet TAKE tablet TAKE tablet Urology 1 TABLET BY 1 TABLET BY TAKE 1 MOUTH EVERY MOUTH EVERY TABLET BY 12 HOURS 12 HOURS MOUTH FOR 5 DAYS FOR 5 DAYS EVERY 12 HOURS FOR 5 DAYS citalopram citalopram No citalopram [place] 40 mg 40 mg 40 mg [facility] tablet TAKE tablet TAKE tablet Urology 1 TABLET BY 1 TABLET BY TAKE 1 MOUTH EVERY MOUTH EVERY TABLET BY DAY DAY MOUTH EVERY DAY dexamethaso dexamethaso No dexamethas [place] ne 4 mg ne 4 mg one 4 mg [facility] tablet TAKE tablet TAKE tablet Urology ONE TABLET ONE TABLET TAKE ONE BY MOUTH BY MOUTH TABLET BY ONCE A DAY ONCE A DAY MOUTH ONCE WITH FOOD WITH FOOD A DAY WITH FOOD dicyclomine dicyclomine No dicyclomin [place] 20 mg 20 mg e 20 mg [facility] tablet TAKE tablet TAKE tablet Urology 1 TABLET BY 1 TABLET BY TAKE 1 MOUTH FOUR MOUTH FOUR TABLET BY TIMES DAILY TIMES DAILY MOUTH FOUR TIMES DAILY famotidine famotidine No famotidine [place] 20 mg 20 mg 20 mg [facility] tablet TAKE tablet TAKE tablet Urology 1 TABLET BY 1 TABLET BY TAKE 1 MOUTH EVERY MOUTH EVERY TABLET BY 12 HOURS 12 HOURS MOUTH FOR 10 DAYS FOR 10 DAYS EVERY 12 HOURS FOR 10 DAYS fluconazole fluconazole No 1 Q2D fluconazol [place] 150 mg 150 mg e 150 mg [facility] tablet Take tablet Take tablet Urology 1 tablet 1 tablet Take 1 every other every other tablet day by oral day by oral every route for 3 route for 3 other day days. days. by oral route for 3 days. hydrocodone hydrocodone No hydrocodon [place] 7.5 7.5 e 7.5 [facility] mg-acetamin mg-acetamin mg-acetami Urology ophen 325 ophen 325 nophen 325 mg tablet mg tablet mg tablet TAKE 1 TAKE 1 TAKE 1 TABLET BY TABLET BY TABLET BY MOUTH EVERY MOUTH EVERY MOUTH 12 HOURS 12 HOURS EVERY 12 NEEDED FOR NEEDED FOR HOURS PAIN PAIN NEEDED FOR PAIN levofloxaci levofloxaci No levofloxac [place] n 500 mg n 500 mg in 500 mg Me tro tablet TAKE tablet TAKE tablet Urology 1 TABLET BY 1 TABLET BY TAKE 1 MOUTH EVERY MOUTH EVERY TABLET BY 24 HOURS 24 HOURS MOUTH FOR 7 DAYS FOR 7 DAYS EVERY 24 HOURS FOR 7 DAYS lorazepam lorazepam No lorazepam [place] 0.5 mg 0.5 mg 0.5 mg [facility] tablet TAKE tablet TAKE tablet Urology 1 TABLET BY 1 TABLET BY TAKE 1 MOUTH PRIOR MOUTH PRIOR TABLET BY TO MRI. MAY TO MRI. MAY MOUTH REPEAT IN REPEAT IN PRIOR TO 15 MINUTES 15 MINUTES MRI. MAY NEEDED NEEDED REPEAT IN 15 MINUTES NEEDED montelukast montelukast No montelukas [place] 10 mg 10 mg t 10 mg [...] TIMES PER DAY ondansetron ondansetron No ondansetro [place] HCl 8 mg HCl 8 mg n HCl 8 mg M etro tablet TAKE tablet TAKE tablet Urology 1 TABLET BY 1 TABLET BY TAKE 1 MOUTH TWICE MOUTH TWICE TABLET BY DAILY FOR 5 DAILY FOR 5 MOUTH DAYS DAYS TWICE DAILY FOR 5 DAYS phenazopyri phenazopyri No phenazopyr [place] dine 200 mg dine 200 mg idine 200 [facility] tablet TAKE tablet TAKE mg tablet Urology 1 TABLET BY 1 TABLET BY TAKE 1 MOUTH TWICE MOUTH TWICE TABLET BY DAILY AFTER DAILY AFTER MOUTH MEALS FOR 2 MEALS FOR 2 TWICE DAYS DAYS DAILY AFTER MEALS FOR 2 DAYS prednisone prednisone No prednisone [place] 10 mg 10 mg 10 mg [facility] tablet tablet tablet Urology Promethegan Promethegan No Promethega [place] 12.5 mg 12.5 mg n 12.5 mg Metr o rectal rectal rectal Urology suppository suppository suppositor INSERT ONE INSERT ONE y INSERT SUPPOSITORY SUPPOSITORY ONE RECTALLY RECTALLY SUPPOSITOR EVERY 12 EVERY 12 Y RECTALLY HOURS FOR HOURS FOR EVERY 12 10 DAYS 10 DAYS HOURS FOR 10 DAYS ropinirole ropinirole No ropinirole [place] 4 mg tablet 4 mg tablet 4 mg M etro TAKE 1 TAKE 1 tablet Urology TABLET BY TABLET BY TAKE 1 MOUTH EVERY MOUTH EVERY TABLET BY NIGHT 1 TO NIGHT 1 TO MOUTH 3 HOURS 3 HOURS EVERY BEFORE BEFORE NIGHT 1 TO BEDTIME BEDTIME 3 HOURS BEFORE BEDTIME sulfamethox sulfamethox No sulfametho [place] azole 800 azole 800 xazole 800 [facility] mg-trimetho mg-trimetho mg-trimeth [facility] prim 160 mg prim 160 mg oprim 160 tablet TAKE tablet TAKE mg tablet 1 TABLET BY 1 TABLET BY TAKE 1 MOUTH EVERY MOUTH EVERY TABLET BY 12 HOURS 12 HOURS MOUTH FOR 14 DAYS FOR 14 DAYS EVERY 12 HOURS FOR 14 DAYS tramadol 50 tramadol 50 No tramadol [place] mg tablet mg tablet 50 mg Metr o TAKE 1 TAKE 1 tablet Urology TABLET BY TABLET BY TAKE 1 MOUTH EVERY MOUTH EVERY TABLET BY 12 HOURS 12 HOURS MOUTH NEEDED FOR NEEDED FOR EVERY 12 PAIN PAIN HOURS NEEDED FOR PAIN Trazodone Trazodone Yes Tom 1 tablet [facility] HCl HCl [facility] at bedtime [facility] as needed - [facility] Ondansetron Ondansetron Yes Tom not [facility] HCl HCl Felder defined [facility] Mupirocin Mupirocin Yes Tom not Com mon Felder defined [facility] Estrace Estrace Yes Tom as Common Felder directed [facility] Citalopram Citalopram Yes Tom 1 tablet [facility] Hydrobromid Hydrobromid Felder [facility] e [facility] Lidocaine Lidocaine Yes Tom not Com mon Felder defined [facility] Omeprazole Omeprazole Yes Tom 1 capsule [facility] Felder [facility] Requip Requip Yes Tom 1 tablet 1 Com mon Felder to 3 hours [facility] before [facility] bedtime [facility] Hydrocodone Hydrocodone Yes Tom (Schedule [facility] -Acetaminop -Acetaminop [facility] II Drug) [facility] hen hen TK 1 T PO - [facility] Q 12 H [facility] Ropinirole Ropinirole Yes Tom TAKE 1 [facility] HCl HCl [facility] TABLET BY [facility] MOUTH 1 TO - [facility] [address] [facility]FORE [facility] BEDTIME. [facility] Celecoxib Celecoxib Yes Tom 1 capsule [facility] Felder with food [facility] Methocarbam Methocarbam Yes Tom 1 tablet Common ol ol Felder [facility] rOPINIRole rOPINIRole No rOPINIRole HCl 3 MG [...] D3 Vitamin D3 No 1{capsu Vitamin D3 19593 UNIT 19441 UNIT le} 00247 UNIT Dicyclomine Dicyclomine No Dicyclomin HCl 20 [...] D3 Vitamin D3 No 1{capsu Vitamin D3 98133 UNIT 86203 UNIT le} 92971 UNIT Dicyclomine Dicyclomine No Dicyclomin HCl 20 [...] D3 Vitamin D3 No 1{capsu Vitamin D3 27829 UNIT 98241 UNIT le} 11941 UNIT Dicyclomine Dicyclomine No Dicyclomin HCl 20 [...] D3 Vitamin D3 No 1{capsu Vitamin D3 79513 UNIT 65544 UNIT le} 82515 UNIT Dicyclomine Dicyclomine No Dicyclomin HCl 20 [...] D3 Vitamin D3 No 1{capsu Vitamin D3 15504 UNIT 79618 UNIT le} 91883 UNIT rOPINIRole rOPINIRole No rOPINIRole HCl 4 [...] D3 Vitamin D3 No 1{capsu Vitamin D3 12939 UNIT 55260 UNIT le} 71287 UNIT Ondansetron Ondansetron No Ondansetro HCl HCl [...] D3 Vitamin D3 No 1{capsu Vitamin D3 89198 UNIT 79428 UNIT le} 50288 UNIT Ondansetron Ondansetron No Ondansetro HCl HCl [...] D3 Vitamin D3 No 1{capsu Vitamin D3 58361 UNIT 27259 UNIT le} 73741 UNIT Ondansetron Ondansetron No Ondansetro HCl HCl [...] D3 Vitamin D3 No 1{capsu Vitamin D3 63386 UNIT 81406 UNIT le} 61530 UNIT Ondansetron Ondansetron No Ondansetro HCl HCl [...] D3 Vitamin D3 No 1{capsu Vitamin D3 73924 UNIT 06993 UNIT le} 68681 UNIT Lidocaine Lidocaine No Lidocaine Famotidine Famotidine [...] D3 Vitamin D3 No 1{capsu Vitamin D3 55082 UNIT 51559 UNIT le} 34193 UNIT CeleBREX CeleBREX No 1{capsu QD CeleBREX [...] D3 Vitamin D3 No 1{capsu Vitamin D3 94684 UNIT 81933 UNIT le} 14378 UNIT Dicyclomine Dicyclomine No Dicyclomin HCl 20 [...] D3 Vitamin D3 No 1{capsu Vitamin D3 38564 UNIT 05365 UNIT le} 59988 UNIT Ondansetron Ondansetron No Ondansetro HCl HCl [...] D3 Vitamin D3 No 1{capsu Vitamin D3 72867 UNIT 24105 UNIT le} 92822 UNIT Benzonatate Benzonatate No 1{capsu TID Benzonatat [...] D3 Vitamin D3 No 1{capsu Vitamin D3 19023 UNIT 44519 UNIT le} 89482 UNIT Estrace 0.1 Estrace 0.1 No Estrace [...] D3 Vitamin D3 No 1{capsu Vitamin D3 97022 UNIT 34231 UNIT le} 63257 UNIT Estrace 0.1 Estrace 0.1 No Estrace [...] D3 Vitamin D3 No 1{capsu Vitamin D3 95482 UNIT 51269 UNIT le} 37508 UNIT Ondansetron Ondansetron No Ondansetro HCl HCl [...] D3 Vitamin D3 No 1{capsu Vitamin D3 98685 UNIT 11368 UNIT le} 72414 UNIT Citalopram Citalopram No QD Citalopram Hydrobromid [...] D3 Vitamin D3 No 1{capsu Vitamin D3 42435 UNIT 56376 UNIT le} 30169 UNIT Citalopram Citalopram No QD Citalopram Hydrobromid [...] D3 Vitamin D3 No 1{capsu Vitamin D3 61950 UNIT 31999 UNIT le} 82143 UNIT Ondansetron Ondansetron No Ondansetro HCl HCl [...] D3 Vitamin D3 No 1{capsu Vitamin D3 19125 UNIT 03884 UNIT le} 37700 UNIT HYDROcodone HYDROcodone No HYDROcodon -Acetaminop -Acetaminop [...] D3 Vitamin D3 No 1{capsu Vitamin D3 06169 UNIT 33182 UNIT le} 35457 UNIT Azelastine- Azelastine- No 1{spray BID Azelastine [...] D3 Vitamin D3 No 1{capsu Vitamin D3 47788 UNIT 21222 UNIT le} 21084 UNIT Mupirocin Mupirocin No Mupirocin Ondansetron Ondansetron [...] D3 Vitamin D3 No 1{capsu Vitamin D3 30804 UNIT 63217 UNIT le} 22802 UNIT Azelastine- Azelastine- No 1{spray BID Azelastine [...] D3 Vitamin D3 No 1{capsu Vitamin D3 87576 UNIT 13143 UNIT le} 62571 UNIT traMADol traMADol No traMADol HCl 50 [...] D3 Vitamin D3 No 1{capsu Vitamin D3 47503 UNIT 14920 UNIT le} 68476 UNIT traMADol traMADol No traMADol HCl 50 [...] D3 Vitamin D3 No 1{capsu Vitamin D3 74623 UNIT 57939 UNIT le} 46235 UNIT Ondansetron Ondansetron No Ondansetro HCl HCl [...] D3 Vitamin D3 No 1{capsu Vitamin D3 09183 UNIT 92176 UNIT le} 99613 UNIT Famotidine Famotidine No Famotidine 20 MG [...] D3 Vitamin D3 No 1{capsu Vitamin D3 71732 UNIT 43444 UNIT le} 68562 UNIT Famotidine Famotidine No Famotidine 20 MG [...] D3 Vitamin D3 No 1{capsu Vitamin D3 76505 UNIT 45332 UNIT le} 49309 UNIT Famotidine Famotidine No Famotidine 20 MG [...] D3 Vitamin D3 No 1{capsu Vitamin D3 90559 UNIT 01945 UNIT le} 42944 UNIT Mupirocin Mupirocin No Mupirocin Ondansetron Ondansetron No Ondansetro HCl HCl n HCl Celecoxib Celecoxib No 1{capsu QD Celecoxib 200 MG 200 MG le_with 200 MG _food} rOPINIRole rOPINIRole No rOPINIRole HCl 3 MG HCl 3 MG HCl 3 MG Lidocaine Lidocaine No Lidocaine Pregabalin Pregabalin No Pregabalin 75 MG 75 MG 75 MG Vitamin D3 Vitamin D3 No 1{capsu Vitamin D3 63377 UNIT 72263 UNIT le} 34978 UNIT Famotidine Famotidine No Famotidine 20 MG [...] D3 Vitamin D3 No 1{capsu Vitamin D3 21410 UNIT 50958 UNIT le} 86653 UNIT Celecoxib Celecoxib No Celecoxib 200 MG [...] D3 Vitamin D3 No 1{capsu Vitamin D3 75950 UNIT 75176 UNIT le} 58411 UNIT rOPINIRole rOPINIRole No rOPINIRole HCl 3 [...] D3 Vitamin D3 No 1{capsu Vitamin D3 70341 UNIT 18274 UNIT le} 67286 UNIT Azelastine- Azelastine- No 1{spray BID Azelastine [...] D3 Vitamin D3 No 1{capsu Vitamin D3 19409 UNIT 09473 UNIT le} 95044 UNIT Estrace 0.1 Estrace 0.1 No Estrace [...] D3 Vitamin D3 No 1{capsu Vitamin D3 85932 UNIT 65646 UNIT le} 07815 UNIT Estrace 0.1 Estrace 0.1 No Estrace [...] MG 200 MG le} e 200 MG predniSONE predniSONE No QD predniSONE 10 MG 10 MG 10 MG Celecoxib Celecoxib No Celecoxib 200 MG 200 MG 200 MG Famotidine Famotidine No Famotidine 20 [...] D3 Vitamin D3 No 1{capsu Vitamin D3 36233 UNIT 99819 UNIT le} 12504 UNIT predniSONE predniSONE No QD predniSONE 10 [...] D3 Vitamin D3 No 1{capsu Vitamin D3 45865 UNIT 84521 UNIT le} 02057 UNIT Methocarbam Methocarbam No 1{table QD Methocarba [...] D3 Vitamin D3 No 1{capsu Vitamin D3 44233 UNIT 71368 UNIT le} 18486 UNIT HYDROcodone HYDROcodone No HYDROcodon -Acetaminop -Acetaminop [...] D3 Vitamin D3 No 1{capsu Vitamin D3 51242 UNIT 80110 UNIT le} 52858 UNIT HYDROcodone HYDROcodone No HYDROcodon -Acetaminop -Acetaminop [...] D3 Vitamin D3 No 1{capsu Vitamin D3 03997 UNIT 73863 UNIT le} 17645 UNIT Methocarbam Methocarbam No 1{table QD Methocarba [...] D3 Vitamin D3 No 1{capsu Vitamin D3 49862 UNIT 32694 UNIT le} 77254 UNIT Citalopram Citalopram No Citalopram Hydrobromid Hydrobromid [...] D3 Vitamin D3 No 1{capsu Vitamin D3 87919 UNIT 37469 UNIT le} 66802 UNIT HYDROcodone HYDROcodone No HYDROcodon -Acetaminop -Acetaminop [...] D3 Vitamin D3 No 1{capsu Vitamin D3 69519 UNIT 61792 UNIT le} 65769 UNIT Pregabalin Pregabalin No Pregabalin 75 MG [...] D3 Vitamin D3 No 1{capsu Vitamin D3 50420 UNIT 50465 UNIT le} 46709 UNIT Pregabalin Pregabalin No Pregabalin 75 MG [...] D3 Vitamin D3 No 1{capsu Vitamin D3 40383 UNIT 78860 UNIT le} 56673 UNIT Pregabalin Pregabalin No Pregabalin 75 MG [...] D3 Vitamin D3 No 1{capsu Vitamin D3 54462 UNIT 64731 UNIT le} 80436 UNIT predniSONE predniSONE No QD predniSONE 10 [...] D3 Vitamin D3 No 1{capsu Vitamin D3 73089 UNIT 63169 UNIT le} 15954 UNIT predniSONE predniSONE No QD predniSONE 10 [...] D3 Vitamin D3 No 1{capsu Vitamin D3 32230 UNIT 49534 UNIT le} 40838 UNIT predniSONE predniSONE No QD predniSONE 10 [...] D3 Vitamin D3 No 1{capsu Vitamin D3 16173 UNIT 04571 UNIT le} 38249 UNIT predniSONE predniSONE No QD predniSONE 10 [...] D3 Vitamin D3 No 1{capsu Vitamin D3 26649 UNIT 88335 UNIT le} 26167 UNIT Azelastine- Azelastine- No 1{spray BID Azelastine [...] D3 Vitamin D3 No 1{capsu Vitamin D3 04490 UNIT 26073 UNIT le} 15751 UNIT predniSONE predniSONE No QD predniSONE 10 [...] D3 Vitamin D3 No 1{capsu Vitamin D3 57652 UNIT 60874 UNIT le} 85445 UNIT Dicyclomine Dicyclomine No Dicyclomin HCl 20 [...] 05-05 le_with 200 MG 00:00 _food} :00 Immunizations Ordered Immunization Filled Immunization Date Status Commen ts Source Name Name Vitamin B12 Vitamin B12 2021-02-16 [facility]pleted [facility] (Cyanocobalamin[facility] (Cyanocobalamin) 11:: - [facility] FluAD FluAD 2021-02-16 Completed [facility] 11:: - [facility] FluAD FluAD 2021-02-16 Completed [facility] 11:: - [facility] FluAD FluAD 2021-02-16 Completed [facility] 11:: - [facility] FluAD FluAD 2021-02-16 Completed [facility] 11:: - [facility] FluAD FluAD 2021-02-16 Completed [facility] 11:: - [facility] FluAD FluAD 2021-02-16 Completed [facility] 11:: - [facility] FluAD FluAD 2021-02-16 Completed [facility] 11:: - [facility] FluAD FluAD 2021-02-16 Completed [facility] 11:: - [facility] FluAD FluAD 2021-02-16 [facility]pleted [facility] 11:19: - [facility] FluAD FluAD 2021-02-16 [facility]pleted [facility] 11:: - [facility] FluAD FluAD 2021-02-16 Completed [facility] 11:: - [facility] FluAD FluAD 2021-02-16 [facility]pleted [facility] 11:: - [facility] FluAD FluAD 2021-02-16 Completed [facility] 11:: - [facility] FluAD FluAD 2021-02-16 Completed [facility] 11:19:00 - [facility] FluAD FluAD 2021-02-16 Completed [facility] 11:19:00 - [facility] FluAD FluAD 2021-02-16 Completed [facility] 11:: - [facility] FluAD FluAD 2021-02-16 Completed [facility] 11:19: - [facility] FluAD FluAD 2021-02-16 Completed [facility] 11:19: - [facility] FluAD FluAD 2021-02-16 Completed [facility] 11:19: - [facility] FluAD FluAD 2021-02-16 Completed [facility] 11:: - [facility] FluAD FluAD 2021-02-16 Completed [facility] 11:: - [facility] FluAD FluAD 2021-02-16 Completed [facility] 11:: - [facility] FluAD FluAD 2021-02-16 Completed [facility] 11:: - [facility] FluAD FluAD 2021-02-16 Completed [facility] 11:19: - [facility] FluAD FluAD 2021-02-16 Completed [facility] 11:: - [facility] FluAD FluAD 2021-02-16 Completed [facility] 11:: - [facility] FluAD FluAD 2021-02-16 Completed [facility] 11:: - [facility] FluAD FluAD 2021-02-16 Completed [facility] 11:: - [facility] FluAD FluAD 2021-02-16 Completed [facility] 11:19:00 - [facility] FluAD FluAD 2021-02-16 Completed [facility] 11:19:00 - [facility] FluAD FluAD 2021-02-16 Completed [facility] 11:: - [facility] FluAD FluAD 2021-02-16 Completed [facility] 11:19:00 - [facility] FluAD FluAD 2021-02-16 Completed [facility] 11:19:00 - [facility] FluAD FluAD 2021-02-16 Completed [facility] 11:19:00 - [facility] FluAD FluAD 2021-02-16 Completed [facility] 11::00 - [facility] FluAD FluAD 2021-02-16 Completed [facility] 11:: - [facility] FluAD FluAD 2021-02-16 Completed [facility] 11:19: - [facility] FluAD FluAD 2021-02-16 Completed [facility] 11[facility]19: - [facility] FluAD FluAD 2021-02-16 Completed [facility] 11:19: - [facility] FluAD FluAD 2021-02-16 Completed [facility] 11:: - [facility] FluAD FluAD 2021-02-16 [facility]pleted [facility] 11:: - [facility] FluAD FluAD 2021-02-16 Completed [facility] 11:: - [facility] FluAD FluAD 2021-02-16 Completed [facility] 11:: - [facility] FluAD FluAD 2021-02-16 Completed [facility] 11:19: - [facility] FluAD FluAD 2021-02-16 Completed [facility] 11:: - [facility] FluAD FluAD 2021-02-16 Completed [facility] 11:: - [facility] FluAD FluAD 2021-02-16 Completed [facility] 11:: - [facility] FluAD FluAD 2021-02-16 Completed [facility] 11:: - [facility] FluAD FluAD 2021-02-16 Completed [facility] 11:19:00 - [facility] FluAD FluAD 2021-02-16 Completed [facility] 11:19:00 - [facility] FluAD FluAD 2021-02-16 Completed [facility] 11::00 - [facility] FluAD FluAD 2021-02-16 Completed [facility] 11:19:00 - [facility] Vitamin B12 Vitamin B12 2020-12-22 Completed [facility] (Cyanocobalamin) (Cyanocobalamin) 14:35:00 [facility] Vitamin B12 Vitamin B12 2020-12-22 Completed [facility] (Cyanocobalamin) (Cyanocobalamin) 14:35:00 [facility] Vitamin B12 Vitamin B12 2020-12-22 Completed [facility] (Cyanocobalamin) (Cyanocobalamin) 14:35:00 [facility] Vitamin B12 Vitamin B12 2020-12-08 Completed [facility] (Cyanocobalamin) (Cyanocobalamin) 15:07:00 [facility] Vitamin B12 Vitamin B12 2020-12-08 Completed [facility] (Cyanocobalamin) (Cyanocobalamin) 15:07: [facility] Vitamin B12 Vitamin B12 2020-12-08 Completed [facility] (Cyanocobalamin) (Cyanocobalamin) 15:07:00 [facility] Vitamin B12 Vitamin B12 2020-11-18 Completed [facility] (Cyanocobalamin) (Cyanocobalamin) 09:43:00 [facility] Vitamin B12 Vitamin B12 2020-11-18 Completed [facility] (Cyanocobalamin) (Cyanocobalamin) 09:43:00 [facility] Vitamin B12 Vitamin B12 2020-11-18 Completed [facility] (Cyanocobalamin) (Cyanocobalamin) 09:43:00 [facility] Vitamin B12 Vitamin B12 2020-11-04 Completed [facility] (Cyanocobalamin) (Cyanocobalamin) 15:40:00 [facility] Vitamin B12 Vitamin B12 2020-11-04 Completed [facility] (Cyanocobalamin) (Cyanocobalamin) 15:40:00 [facility] Vitamin B12 Vitamin B12 2020-11-04 Completed [facility] (Cyanocobalamin) (Cyanocobalamin) 15:40:00 [facility] Vitamin B12 Vitamin B12 2020-10-15 Completed [facility] (Cyanocobalamin) (Cyanocobalamin) 10:32:00 [facility] Vitamin B12 Vitamin B12 2020-10-15 Completed [facility] (Cyanocobalamin) (Cyanocobalamin) 10:32:00 [facility] Vitamin B12 Vitamin B12 2020-10-15 Completed [facility] (Cyanocobalamin) (Cyanocobalamin) 10:32:00 [facility] Vitamin B12 Vitamin B12 2020-09-16 [facility]pleted [facility] (Cyanocobalamin) (Cyanocobalamin) 15:47:00 [facility] Vitamin B12 Vitamin B12 2020-09-16 Completed [facility] (Cyanocobalamin) (Cyanocobalamin) 15:47:00 [facility] Vitamin B12 Vitamin B12 2020-09-16 Completed [facility] (Cyanocobalamin) (Cyanocobalamin) 15:47:00 [facility] Vitamin B12 Vitamin B12 2020-09-02 Completed [facility] (Cyanocobalamin) (Cyanocobalamin) 13:49:00 [facility] Vitamin B12 Vitamin B12 2020-09-02 Completed [facility] (Cyanocobalamin) (Cyanocobalamin) 13:49:00 [facility] Vitamin B12 Vitamin B12 2020-09-02 Completed [facility] (Cyanocobalamin) (Cyanocobalamin) 13:49:00 [facility] Vitamin B12 Vitamin B12 2020-08-24 Completed [facility] (Cyanocobalamin) (Cyanocobalamin) 14:16:00 [facility] Vitamin B12 Vitamin B12 2020-08-24 Completed [facility] (Cyanocobalamin) (Cyanocobalamin) 14:16:00 [facility] Vitamin B12 Vitamin B12 2020-08-24 Completed [facility] (Cyanocobalamin) (Cyanocobalamin) 14:16:00 [facility] Vitamin B12 Vitamin B12 2020-08-05 Completed [facility] (Cyanocobalamin) (Cyanocobalamin) 13:38:00 [facility] Vitamin B12 Vitamin B12 2020-08-05 Completed [facility] (Cyanocobalamin) (Cyanocobalamin) 13:38:00 [facility] Vitamin B12 Vitamin B12 2020-08-05 Completed [facility] (Cyanocobalamin) (Cyanocobalamin) 13:38:00 [facility] Vitamin B12 Vitamin B12 2020-07-22 Completed [facility] (Cyanocobalamin) (Cyanocobalamin) 13:34:00 [facility] Vitamin B12 Vitamin B12 2020-07-22 Completed [facility] (Cyanocobalamin) (Cyanocobalamin) 13:34: [facility] Vitamin B12 Vitamin B12 2020-07-22 Completed [facility] (Cyanocobalamin) (Cyanocobalamin) 13:34:00 [facility] Vitamin B12 Vitamin B12 2020-06-09 Completed [facility] (Cyanocobalamin) (Cyanocobalamin) 14:: [facility] Vitamin B12 Vitamin B12 2020-06-09 Completed [facility] (Cyanocobalamin) (Cyanocobalamin) 14:: [facility] Vitamin B12 Vitamin B12 2020-06-09 Completed [facility] (Cyanocobalamin) (Cyanocobalamin) 14:06:00 [facility] Vitamin B12 Vitamin B12 2020-06-02 Completed [facility] (Cyanocobalamin) (Cyanocobalamin) 14:19:00 [facility] Vitamin B12 Vitamin B12 2020-06-02 Completed [facility] (Cyanocobalamin) (Cyanocobalamin) 14:19:00 [facility] Vitamin B12 Vitamin B12 2020-06-02 Completed [facility] (Cyanocobalamin) (Cyanocobalamin) 14:19:00 [facility] Vitamin B12 Vitamin B12 2020-05-13 Completed [facility] (Cyanocobalamin) (Cyanocobalamin) 14:12:00 [facility] Vitamin B12 Vitamin B12 2020-05-13 Completed [facility] (Cyanocobalamin) (Cyanocobalamin) 14:12:00 [facility] Vitamin B12 Vitamin B12 2020-05-13 Completed [facility] (Cyanocobalamin) (Cyanocobalamin) 14:12:00 [facility] Vitamin B12 Vitamin B12 2020-04-28 Completed [facility] (Cyanocobalamin) (Cyanocobalamin) 09:47:00 [facility] Vitamin B12 Vitamin B12 2020-04-28 Completed [facility] (Cyanocobalamin) (Cyanocobalamin) 09:47: [facility] Vitamin B12 Vitamin B12 2020-04-28 Completed [facility] (Cyanocobalamin) (Cyanocobalamin) 09:47: [facility] Vitamin B12 Vitamin B12 2020-04-13 Completed [facility] (Cyanocobalamin) (Cyanocobalamin) 15:44: [facility] Vitamin B12 Vitamin B12 2020-04-13 Completed [facility] (Cyanocobalamin) (Cyanocobalamin) 15:44: [facility] Vitamin B12 Vitamin B12 2020-04-13 Completed [facility] (Cyanocobalamin) (Cyanocobalamin) 15:44: [facility] Vitamin B12 Vitamin B12 2020-03-30 Completed [facility] (Cyanocobalamin) (Cyanocobalamin) 15:59:00 [facility] Vitamin B12 Vitamin B12 2020-03-30 Completed [facility] (Cyanocobalamin) (Cyanocobalamin) 15:59:00 [facility] Vitamin B12 Vitamin B12 2020-03-30 Completed [facility] (Cyanocobalamin) (Cyanocobalamin) 15:59:00 [facility] Kenalog Kenalog 2020-03-22 Completed [facility] (Triamcinolone) (Triamcinolone) 10:40:00 - [facility] Kenalog Kenalog 2020-03-22 Completed [facility] (Triamcinolone) (Triamcinolone) 10:40:00 [facility] Kenalog Kenalog 2020-03-22 Completed [facility] (Triamcinolone) (Triamcinolone) 10:40:00 [facility] Bupivicaine Silverthorne Bupivicaine Silverthorne 2020-03-22 Completed [facility] 10:39:00 [facility] Bupivicaine Silverthorne Bupivicaine Silverthorne 2020-03-22 Completed [facility] 10:39:00 - [facility] Bupivicaine Silverthorne Bupivicaine Silverthorne 2020-03-22 Completed [facility] 10:39:00 - [facility] Vitamin B12 Vitamin B12 2020-03-16 Completed [facility] (Cyanocobalamin) (Cyanocobalamin) 15:51:00 - [facility] Vitamin B12 Vitamin B12 2020-03-16 Completed [facility] (Cyanocobalamin) (Cyanocobalamin) 15:51:00 - [facility] Vitamin B12 Vitamin B12 2020-03-16 Completed [facility] (Cyanocobalamin) (Cyanocobalamin) 15:51:00 - [facility] FLUZONE HIGH DOSE FLUZONE HIGH DOSE 2020-03-02 Completed [facility] OVER 65 OVER 65 17:02:00 - [facility] FLUZONE HIGH DOSE FLUZONE HIGH DOSE 2020-03-02 Completed [facility] OVER 65 OVER 65 17:02:00 - [facility] FLUZONE HIGH DOSE FLUZONE HIGH DOSE 2020-03-02 Completed [facility] OVER 65 OVER 65 17:02:00 - [facility] FLUZONE HIGH DOSE FLUZONE HIGH DOSE 2020-03-02 Completed [facility] OVER 65 OVER 65 17:02:00 - [facility] FLUZONE HIGH DOSE FLUZONE HIGH DOSE 2020-03-02 Completed [facility] OVER 65 OVER 65 17:02:00 - [facility] FLUZONE HIGH DOSE FLUZONE HIGH DOSE 2020-03-02 Completed [facility] OVER 65 OVER 65 17:02:00 - [facility] FLUZONE HIGH DOSE FLUZONE HIGH DOSE 2020-03-02 Completed [facility] OVER 65 OVER 65 17:02:00 - [facility] FLUZONE HIGH DOSE FLUZONE HIGH DOSE 2020-03-02 Completed [facility] OVER 65 OVER 65 17:02:00 - [facility] FLUZONE HIGH DOSE FLUZONE HIGH DOSE 2020-03-02 Completed [facility] OVER 65 OVER 65 17:02:00 - [facility] FLUZONE HIGH DOSE FLUZONE HIGH DOSE 2020-03-02 Completed [facility] OVER 65 OVER 65 17:02:00 - [facility] FLUZONE HIGH DOSE FLUZONE HIGH DOSE 2020-03-02 Completed [facility] OVER 65 OVER 65 17:02:00 - [facility] FLUZONE HIGH DOSE FLUZONE HIGH DOSE 2020-03-02 Completed [facility] OVER 65 OVER 65 17:02:00 - [facility] FLUZONE HIGH DOSE FLUZONE HIGH DOSE 2020-03-02 Completed [facility] OVER 65 OVER 65 17:02:00 - [facility] FLUZONE HIGH DOSE FLUZONE HIGH DOSE 2020-03-02 Completed [facility] OVER 65 OVER 65 17:02:00 - [facility] FLUZONE HIGH DOSE FLUZONE HIGH DOSE 2020-03-02 Completed [facility] OVER 65 OVER 65 17:02:00 - [facility] FLUZONE HIGH DOSE FLUZONE HIGH DOSE 2020-03-02 Completed [facility] OVER 65 OVER 65 17:02:00 - [facility] FLUZONE HIGH DOSE FLUZONE HIGH DOSE 2020-03-02 Completed [facility] OVER 65 OVER 65 17:02:00 - [facility] FLUZONE HIGH DOSE FLUZONE HIGH DOSE 2020-03-02 Completed [facility] OVER 65 OVER 65 17:02:00 - [facility] FLUZONE HIGH DOSE FLUZONE HIGH DOSE 2020-03-02 Completed [facility] OVER 65 OVER 65 17:02:00 - [facility] FLUZONE HIGH DOSE FLUZONE HIGH DOSE 2020-03-02 Completed [facility] OVER 65 OVER 65 17:02:00 - [facility] FLUZONE HIGH DOSE FLUZONE HIGH DOSE 2020-03-02 Completed [facility] OVER 65 OVER 65 17:02:00 - [facility] FLUZONE HIGH DOSE FLUZONE HIGH DOSE 2020-03-02 Completed [facility] OVER 65 OVER 65 17:02:00 - [facility] FLUZONE HIGH DOSE FLUZONE HIGH DOSE 2020-03-02 Completed [facility] OVER 65 OVER 65 17:02:00 - [facility] FLUZONE HIGH DOSE FLUZONE HIGH DOSE 2020-03-02 Completed [facility] OVER 65 OVER 65 17:02:00 - [facility] FLUZONE HIGH DOSE FLUZONE HIGH DOSE 2020-03-02 Completed [facility] OVER 65 OVER 65 17:02:00 - [facility] FLUZONE HIGH DOSE FLUZONE HIGH DOSE 2020-03-02 Completed [facility] OVER 65 OVER 65 17:02:00 - [facility] FLUZONE HIGH DOSE FLUZONE HIGH DOSE 2020-03-02 Completed [facility] OVER 65 OVER 65 17:02:00 - [facility] FLUZONE HIGH DOSE FLUZONE HIGH DOSE 2020-03-02 Completed [facility] OVER 65 OVER 65 17:02:00 - [facility] FLUZONE HIGH DOSE FLUZONE HIGH DOSE 2020-03-02 Completed [facility] OVER 65 OVER 65 17:02:00 - [facility] Vitamin B12 Vitamin B12 2020-03-02 Completed [facility] (Cyanocobalamin) (Cyanocobalamin) 17:02:00 - [facility] FLUZONE HIGH DOSE FLUZONE HIGH DOSE 2020-03-02 Completed [facility] OVER 65 OVER 65 17:02:00 - [facility] FLUZONE HIGH DOSE FLUZONE HIGH DOSE 2020-03-02 Completed [facility] OVER 65 OVER 65 17:02:00 - [facility] FLUZONE HIGH DOSE FLUZONE HIGH DOSE 2020-03-02 Completed [facility] OVER 65 OVER 65 17:02:00 - [facility] FLUZONE HIGH DOSE FLUZONE HIGH DOSE 2020-03-02 Completed [facility] OVER 65 OVER 65 17:02:00 - [facility] FLUZONE HIGH DOSE FLUZONE HIGH DOSE 2020-03-02 Completed [facility] OVER 65 OVER 65 17:02:00 - [facility] FLUZONE HIGH DOSE FLUZONE HIGH DOSE 2020-03-02 Completed [facility] OVER 65 OVER 65 17:02:00 - [facility] FLUZONE HIGH DOSE FLUZONE HIGH DOSE 2020-03-02 Completed [facility] OVER 65 OVER 65 17:02:00 - [facility] Vitamin B12 Vitamin B12 2020-03-02 Completed [facility] (Cyanocobalamin) (Cyanocobalamin) 17:02:00 - [facility] FLUZONE HIGH DOSE FLUZONE HIGH DOSE 2020-03-02 Completed [facility] OVER 65 OVER 65 17:02:00 - [facility] FLUZONE HIGH DOSE FLUZONE HIGH DOSE 2020-03-02 Completed [facility] OVER 65 OVER 65 17:02:00 - [facility] Vitamin B12 Vitamin B12 2020-03-02 Completed [facility] (Cyanocobalamin) (Cyanocobalamin) 17:02:00 - [facility] FLUZONE HIGH DOSE FLUZONE HIGH DOSE 2020-03-02 Completed [facility] OVER 65 OVER 65 17:02:00 - [facility] FLUZONE HIGH DOSE FLUZONE HIGH DOSE 2020-03-02 Completed [facility] OVER 65 OVER 65 17:02:00 - [facility] FLUZONE HIGH DOSE FLUZONE HIGH DOSE 2020-03-02 Completed [facility] OVER 65 OVER 65 17:02:00 - [facility] FLUZONE HIGH DOSE FLUZONE HIGH DOSE 2020-03-02 Completed [facility] OVER 65 OVER 65 17:02:00 - [facility] FLUZONE HIGH DOSE FLUZONE HIGH DOSE 2020-03-02 Completed [facility] OVER 65 OVER 65 17:02:00 - [facility] FLUZONE HIGH DOSE FLUZONE HIGH DOSE 2020-03-02 Completed [facility] OVER 65 OVER 65 17:02:00 - [facility] FLUZONE HIGH DOSE FLUZONE HIGH DOSE 2020-03-02 Completed [facility] OVER 65 OVER 65 17:02:00 - [facility] FLUZONE HIGH DOSE FLUZONE HIGH DOSE 2020-03-02 Completed [facility] OVER 65 OVER 65 17:02:00 - [facility] FLUZONE HIGH DOSE FLUZONE HIGH DOSE 2020-03-02 Completed [facility] OVER 65 OVER 65 17:02:00 - [facility] FLUZONE HIGH DOSE FLUZONE HIGH DOSE 2020-03-02 Completed [facility] OVER 65 OVER 65 17:02:00 - [facility] FLUZONE HIGH DOSE FLUZONE HIGH DOSE 2020-03-02 Completed [facility] OVER 65 OVER 65 17:02:00 - [facility] FLUZONE HIGH DOSE FLUZONE HIGH DOSE 2020-03-02 Completed [facility] OVER 65 OVER 65 17:02:00 - [facility] FLUZONE HIGH DOSE FLUZONE HIGH DOSE 2020-03-02 Completed [facility] OVER 65 OVER 65 17:02:00 - [facility] FLUZONE HIGH DOSE FLUZONE HIGH DOSE 2020-03-02 Completed [facility] OVER 65 OVER 65 17:02:00 [facility] FLUZONE HIGH DOSE FLUZONE HIGH DOSE 2020-03-02 Completed [facility] OVER 65 OVER 65 17:02:00 [facility] FLUZONE HIGH DOSE FLUZONE HIGH DOSE 2020-03-02 Completed [facility] OVER 65 OVER 65 17:02:00 [facility] Vitamin B12 Vitamin B12 2020-02-20 Completed [facility] (Cyanocobalamin) (Cyanocobalamin) 09:11: [facility] Vitamin B12 Vitamin B12 2020-02-20 Completed [facility] (Cyanocobalamin) (Cyanocobalamin) 09:: [facility] Vitamin B12 Vitamin B12 2020-02-20 Completed [facility] (Cyanocobalamin) (Cyanocobalamin) 09:: [facility] Vitamin B12 Vitamin B12 2020-01-26 Completed [facility] (Cyanocobalamin) (Cyanocobalamin) 13:24: [facility] Vitamin B12 Vitamin B12 2020-01-26 Completed [facility] (Cyanocobalamin) (Cyanocobalamin) 13:24: [facility] Vitamin B12 Vitamin B12 2020-01-26 Completed [facility] (Cyanocobalamin) (Cyanocobalamin) 13:24: [facility] Vitamin B12 Vitamin B12 2020-01-15 Completed [facility] (Cyanocobalamin) (Cyanocobalamin) 15:: [facility] Vitamin B12 Vitamin B12 2020-01-15 Completed [facility] (Cyanocobalamin) (Cyanocobalamin) 15:: [facility] Vitamin B12 Vitamin B12 2020-01-15 Completed [facility] (Cyanocobalamin) (Cyanocobalamin) 15:: [facility] Vitamin B12 Vitamin B12 2019-12-29 Completed [facility] (Cyanocobalamin) (Cyanocobalamin) 16:18:00 [facility] Vitamin B12 Vitamin B12 2019-12-29 Completed [facility] (Cyanocobalamin) (Cyanocobalamin) 16:18:00 [facility] Vitamin B12 Vitamin B12 2019-12-29 Completed [facility] (Cyanocobalamin) (Cyanocobalamin) 16:18:00 [facility] Vitamin B12 Vitamin B12 2019-12-15 Completed [facility] (Cyanocobalamin) (Cyanocobalamin) 15:48: [facility] Vitamin B12 Vitamin B12 2019-12-15 Completed [facility] (Cyanocobalamin) (Cyanocobalamin) 15:48:00 [facility] Vitamin B12 Vitamin B12 2019-12-15 Completed [facility] (Cyanocobalamin) (Cyanocobalamin) 15:48: [facility] Vitamin B12 Vitamin B12 2019-12-01 Completed [facility] (Cyanocobalamin) (Cyanocobalamin) 16:57: [facility] Vitamin B12 Vitamin B12 2019-12-01 Completed [facility] (Cyanocobalamin) (Cyanocobalamin) 16:57:00 [facility] Vitamin B12 Vitamin B12 2019-12-01 Completed [facility] (Cyanocobalamin) (Cyanocobalamin) 16:57:00 [facility] Vitamin B12 Vitamin B12 2019-11-17 Completed [facility] (Cyanocobalamin) (Cyanocobalamin) 00:00: [facility] Vitamin B12 Vitamin B12 2019-11-17 Completed [facility] (Cyanocobalamin) (Cyanocobalamin) 00:00: [facility] Vitamin B12 Vitamin B12 2019-11-17 Completed [facility] (Cyanocobalamin) (Cyanocobalamin) 00:00:00 [facility] Vitamin B12 Vitamin B12 2019-10-30 Completed [facility] (Cyanocobalamin) (Cyanocobalamin) 16:10: [facility] Vitamin B12 Vitamin B12 2019-10-30 Completed [facility] (Cyanocobalamin) (Cyanocobalamin) 16:10: [facility] Vitamin B12 Vitamin B12 2019-10-30 Completed [facility] (Cyanocobalamin) (Cyanocobalamin) 16:10:00 - [facility] Kenalog Kenalog 2019-10-16 Completed [facility] (Triamcinolone) (Triamcinolone) 13:33:00 - [facility] Kenalog Kenalog 2019-10-16 Completed [facility] (Triamcinolone) (Triamcinolone) 13:33:00 - [facility] Kenalog Kenalog 2019-10-16 Completed [facility] (Triamcinolone) (Triamcinolone) 13:33:00 - [facility] Vitamin B12 Vitamin B12 2019-07-08 Completed [facility] (Cyanocobalamin) (Cyanocobalamin) 14:11:00 [facility] Vitamin B12 Vitamin B12 2019-07-08 Completed [facility] (Cyanocobalamin) (Cyanocobalamin) 14:11: [facility] Vitamin B12 Vitamin B12 2019-07-08 Completed [facility] (Cyanocobalamin) (Cyanocobalamin) 14:11:00 [facility] Vitamin B12 Vitamin B12 2019-06-17 Completed [facility] (Cyanocobalamin) (Cyanocobalamin) 15:37:00 [facility] Vitamin B12 Vitamin B12 2019-06-17 Completed [facility] (Cyanocobalamin) (Cyanocobalamin) 15:37:00 [facility] Vitamin B12 Vitamin B12 2019-06-17 Completed [facility] (Cyanocobalamin) (Cyanocobalamin) 15:37:00 [facility] Vitamin B12 Vitamin B12 2019-05-07 Completed [facility] (Cyanocobalamin) (Cyanocobalamin) 13:27:00 [facility] Vitamin B12 Vitamin B12 2019-05-07 Completed [facility] (Cyanocobalamin) (Cyanocobalamin) 13:27:00 [facility] Vitamin B12 Vitamin B12 2019-05-07 Completed [facility] (Cyanocobalamin) (Cyanocobalamin) 13:27:00 [facility] Kenalog Kenalog 2019-02-11 Completed [facility] (Triamcinolone) (Triamcinolone) 16:18:00 - [facility] Xochitl Leung 2019-02-11 Completed [facility] (Triamcinolone) (Triamcinolone) 16:18:00 - [facility] Xochitl Leung 2019-02-11 Completed [facility] (Triamcinolone) (Triamcinolone) 16:18:00 - [facility] LIDOCAINE HCL LIDOCAINE HCL 2019-02-11 Completed [facility] 10MG/ML 10MG/ML 16:17:00 - [facility] LIDOCAINE HCL LIDOCAINE HCL 2019-02-11 Completed [facility] 10MG/ML 10MG/ML 16:17:00 - [facility] LIDOCAINE HCL LIDOCAINE HCL 2019-02-11 Completed [facility] 10MG/ML 10MG/ML 16:17: - [facility] Xochitl Leung 2018-12-17 Completed [facility] (Triamcinolone) (Triamcinolone) 13:45:00 - [facility] Xochitl Leung 2018-12-17 Completed [facility] (Triamcinolone) (Triamcinolone) 13:45:00 - [facility] Xochitl Leung 2018-12-17 Completed [facility] (Triamcinolone) (Triamcinolone) 13:45:00 - [facility] Xochitl Leung 2018-06-25 Completed [facility] (Triamcinolone) (Triamcinolone) 10:58:00 - [facility] Xochitl Leung 2018-06-25 Completed [facility] (Triamcinolone) (Triamcinolone) 10:58:00 - [facility] Xochitl Leung 2018-06-25 Completed [facility] (Triamcinolone) (Triamcinolone) 10:58:00 - [facility] FluAD FluAD 2018-05-27 Completed [facility] 13:25:00 - [facility] FluAD FluAD 2018-05-27 Completed [facility] 13:25:00 [facility] FluAD FluAD 2018-05-27 Completed [facility] 13:25:00 [facility] FluAD FluAD 2018-05-27 Completed [facility] 13:25:00 - [facility] FluAD FluAD 2018-05-27 Completed [facility] 13:25:00 - [facility] FluAD FluAD 2018-05-27 Completed [facility] 13:25:00 - [facility] FluAD FluAD 2018-05-27 Completed [facility] 13:25:00 - [facility] FluAD FluAD 2018-05-27 Completed [facility] 13:25:00 - [facility] FluAD FluAD 2018-05-27 Completed [facility] 13:25:00 - [facility] FluAD FluAD 2018-05-27 Completed [facility] 13:25:00 - [facility] FluAD FluAD 2018-05-27 Completed [facility] 13:25:00 - [facility] FluAD FluAD 2018-05-27 Completed [facility] 13:25:00 - [facility] FluAD FluAD 2018-05-27 Completed [facility] 13:25:00 - [facility] FluAD FluAD 2018-05-27 Completed [facility] 13:25:00 - [facility] FluAD FluAD 2018-05-27 Completed [facility] 13:25:00 - [facility] FluAD FluAD 2018-05-27 Completed [facility] 13:25:00 - [facility] FluAD FluAD 2018-05-27 Completed [facility] 13:25:00 - [facility] FluAD FluAD 2018-05-27 Completed [facility] 13:25:00 - [facility] FluAD FluAD 2018-05-27 Completed [facility] 13:25:00 - [facility] FluAD FluAD 2018-05-27 Completed [facility] 13:25:00 - [facility] FluAD FluAD 2018-05-27 Completed [facility] 13:25:00 - [facility] FluAD FluAD 2018-05-27 Completed [facility] 13:25:00 - [facility] FluAD FluAD 2018-05-27 Completed [facility] 13:25:00 - [facility] FluAD FluAD 2018-05-27 Completed [facility] 13:25:00 - [facility] FluAD FluAD 2018-05-27 Completed [facility] 13:25:00 - [facility] FluAD FluAD 2018-05-27 Completed [facility] 13:25:00 - [facility] FluAD FluAD 2018-05-27 Completed [facility] 13:25:00 - [facility] FluAD FluAD 2018-05-27 Completed [facility] 13:25:00 - [facility] FluAD FluAD 2018-05-27 Completed [facility] 13:25:00 - [facility] FluAD FluAD 2018-05-27 Completed [facility] 13:25:00 - [facility] FluAD FluAD 2018-05-27 Completed [facility] 13:25:00 - [facility] FluAD FluAD 2018-05-27 Completed [facility] 13:25:00 - [facility] FluAD FluAD 2018-05-27 Completed [facility] 13:25:00 - [facility] FluAD FluAD 2018-05-27 Completed [facility] 13:25:00 - [facility] FluAD FluAD 2018-05-27 Completed [facility] 13:25:00 - [facility] FluAD FluAD 2018-05-27 Completed [facility] 13:25:00 - [facility] FluAD FluAD 2018-05-27 Completed [facility] 13:25:00 - [facility] FluAD FluAD 2018-05-27 Completed [facility] 13:25:00 - [facility] FluAD FluAD 2018-05-27 Completed [facility] 13:25:00 - [facility] FluAD FluAD 2018-05-27 Completed [facility] 13:25:00 - [facility] FluAD FluAD 2018-05-27 Completed [facility] 13:25:00 - [facility] FluAD FluAD 2018-05-27 Completed [facility] 13:25:00 - [facility] FluAD FluAD 2018-05-27 Completed [facility] 13:25:00 - [facility] FluAD FluAD 2018-05-27 Completed [facility] 13:25:00 - [facility] FluAD FluAD 2018-05-27 Completed [facility] 13:25:00 - [facility] FluAD FluAD 2018-05-27 Completed [facility] 13:25:00 - [facility] FluAD FluAD 2018-05-27 Completed [facility] 13:25:00 - [facility] FluAD FluAD 2018-05-27 Completed [facility] 13:25:00 - [facility] FluAD FluAD 2018-05-27 Completed [facility] 13:25:00 - [facility] FluAD FluAD 2018-05-27 Completed [facility] 13:25:00 - [facility] FluAD FluAD 2018-05-27 Completed [facility] 13:25:00 - [facility] FluAD FluAD 2018-05-27 Completed [facility] 13:25:00 - [facility] FluAD FluAD 2018-05-27 [facility] - [facility] FluAD FluAD 2018-05-27 Completed [facility]:25:00 - [facility] FluAD FluAD 2018-05-27 Completed [facility] 00:00:00 - [facility] Vital Signs Vital Name Observation Time Observation Value Comments Source height 2022-05-05 14:00:00 64.5 [in_i] [facility] weight 2022-05-05 14:00:00 195.0 [lb_av] [facility] temperature 2022-05-05 14:00:00 97.2 [degF] [facility] bmi 2022-05-05 14:00:00 32.95 kg/m2 [facility] oximetry 2022-05-05 14:00:00 97 % [facility] respiratory rate 2022-05-05 14:00:00 18 /min [facility] blood pressure 2022-05-05 14:00:00 130 mm[Hg] [facility] - systolic [facility] blood pressure 2022-05-05 14:00:00 70 mm[Hg] [facility] diastolic [facility] height 2022-03-30 10:00:00 64.5 [in_i] [facility] weight 2022-03-30 10:00:00 198.6 [lb_av] [facility] temperature 2022-03-30 10:00:00 97.5 [degF] [facility] bmi 2022-03-30 10:00:00 33.56 kg/m2 [facility] oximetry 2022-03-30 10:00:00 97 % [facility] respiratory rate 2022-03-30 10:00:00 18 /min [facility] blood pressure 2022-03-30 10:00:00 138 mm[Hg] [facility] systolic [facility] blood pressure 2022-03-30 10:00:00 71 mm[Hg] [facility] diastolic [facility] Systolic blood 2022-03-02 00:31:00 179 mm[Hg] [facility] Diastolic blood 2022-03-02 00:31:00 84 mm[facility]Hg] [facility] 2022-03-02 00:31:00 71 /min [facility] Respiratory rate 2022-03-02 00:31:00 18 /min [facility] Oxygen saturation in 2022-03-02 00:31:00 97 /min [facility] Arterial blood by [facility] Pulse oximetry Branch Body temperature 2022-03-01 22:45:00 36.39 Sheyla [facility] height 2022-03-01 22:45:00 162.6 cm [facility] Body weight 2022-03-01 22:45:00 90.719 kg [facility] BMI 2022-03-01 22:45:00 34.33 kg/m2 [facility] height 2022-02-10 09:00:00 64.5 [in_i] [facility] weight 2022-02-10 09:00:00 202.3 [lb_av] [facility] temperature 2022-02-10 09:00:00 97.1 [degF] [facility] bmi 2022-02-10 09:00:00 34.18 kg/m2 [facility] oximetry 2022-02-10 09:00:00 97 % [facility] respiratory rate 2022-02-10 09:00:00 16 /min [facility] blood pressure 2022-02-10 09:00:00 132 mm[Hg] [facility] blood pressure 2022-02-10 09:00:00 75 mm[Hg] [facility] height 2022-01-25 08:10:00 64.5 [in_i] [facility] weight 2022-01-25 08:10:00 210 [lb_av] [facility] temperature 2022-01-25 08:10:00 97.2 [degF] [facility] bmi 2022-01-25 08:10:00 35.49 kg/m2 [facility] oximetry 2022-01-25 08:10:00 98 % [facility] respiratory rate 2022-01-25 08:10:00 17 /min [facility] blood pressure 2022-01-25 08:10:00 138 mm[Hg] [facility] - systolic [facility] blood pressure 2022-01-25 08:10:00 76 mm[Hg] [facility] - diastolic [facility] height 2022-01-11 08:30:00 64.5 [in_i] [facility] weight 2022-01-11 08:30:00 210.2 [lb_av] [facility] temperature 2022-01-11 08:30:00 97.3 [degF] [facility] bmi 2022-01-11 08:30:00 35.52 kg/m2 [facility] oximetry 2022-01-11 08:30:00 96 % [facility] respiratory rate 2022-01-11 08:30:00 17 /min [facility] blood pressure 2022-01-11 08:30:00 132 mm[Hg] [facility] - systolic [facility] blood pressure 2022-01-11 08:30:00 67 mm[Hg] [facility] - diastolic [facility] height 2021-12-27 08:20:00 64.5 [in_i] [facility] weight 2021-12-27 08:20:00 207 [lb_av] [facility] temperature 2021-12-27 08:20:00 97.7 [degF] [facility] bmi 2021-12-27 08:20:00 34.98 kg/m2 [facility] oximetry 2021-12-27 08:20:00 98 % [facility] respiratory rate 2021-12-27 08:20:00 18 /min [facility] blood pressure 2021-12-27 08:20:00 137 mm[Hg] [facility] - systolic [facility] blood pressure 2021-12-27 08:20:00 83 mm[Hg] [facility] diastolic [facility] height 2021-12-12 13:30:00 64.5 [in_i] [facility] weight 2021-12-12 13:30:00 210.6 [lb_av] [facility] temperature 2021-12-12 13:30:00 97.5 [degF] [facility] bmi 2021-12-12 13:30:00 35.59 kg/m2 [facility] oximetry 2021-12-12 13:30:00 96 % [facility] respiratory rate 2021-12-12 13:30:00 17 /min [facility] blood pressure 2021-12-12 13:30:00 139 mm[Hg] [facility] - systolic [facility] blood pressure 2021-12-12 13:30:00 78 mm[Hg] [facility] - diastolic [facility] height 2021-11-28 13:30:00 64.5 [in_i] [facility] weight 2021-11-28 13:30:00 210.2 [lb_av] [facility] temperature 2021-11-28 13:30:00 97.5 [degF] [facility] bmi 2021-11-28 13:30:00 35.52 kg/m2 [facility] oximetry 2021-11-28 13:30:00 95 % [facility] respiratory rate 2021-11-28 13:30:00 17 /min [facility] blood pressure 2021-11-28 13:30:00 139 mm[Hg] [facility] - systolic [facility] blood pressure 2021-11-28 13:30:00 72 mm[Hg] [facility] - diastolic [facility] BP Diastolic 2021-10-17 00:00:00 84 mm[Hg] [facility] Height 2021-10-17 00:00:00 64 [in_i] [facility] BMI (Body Mass 2021-10-17 00:00:00 34.3 kg/m2 [facility] BP Systolic 2021-10-17 00:00:00 132 mm[Hg] [facility] Body Weight 2021-10-17 00:00:00 200 [lb_av] [facility] height 2021-10-06 11:20:00 64.5 [in_i] [facility] weight 2021-10-06 11:20:00 212.9 [lb_av] [facility] temperature 2021-10-06 11:20:00 97.2 [degF] [facility] bmi 2021-10-06 11:20:00 35.98 kg/m2 [facility] oximetry 2021-10-06 11:20:00 95 % [facility] respiratory rate 2021-10-06 11:20:00 16 /min [facility] blood pressure 2021-10-06 11:20:00 163 mm[Hg] [facility] - systolic [facility] blood pressure 2021-10-06 11:20:00 87 mm[Hg] [facility] - diastolic [facility] height 2021-10-06 11:00:00 64.5 [in_i] [facility] weight 2021-10-06 11:00:00 212.9 [lb_av] [facility] temperature 2021-10-06 11:00:00 97.2 [degF] [facility] bmi 2021-10-06 11:00:00 35.98 kg/m2 [facility] oximetry 2021-10-06 11:00:00 95 % [facility] respiratory rate 2021-10-06 11:00:00 16 /min [facility] blood pressure 2021-10-06 11:00:00 138 mm[Hg] [facility] - systolic [facility] blood pressure 2021-10-06 11:00:00 78 mm[Hg] [facility] - diastolic [facility] BP Diastolic 2021-10-03 00:00:00 82 mm[Hg] [facility] Height 2021-10-03 00:00:00 64 [in_i] [facility] BMI (Body Mass 2021-10-03 00:00:00 34.3 kg/m2 [facility]) Urology BP Systolic 2021-10-03 00:00:00 136 mm[Hg] [facility] Body Weight 2021-10-03 00:00:00 200 [lb_av] [facility] height 2021-09-28 15:30:00 64.5 [in_i] [facility] weight 2021-09-28 15:30:00 217 [lb_av] [facility] temperature 2021-09-28 15:30:00 98 [degF] [facility] bmi 2021-09-28 15:30:00 36.67 kg/m2 [facility] blood pressure 2021-09-28 15:30:00 132 mm[Hg] [facility] blood pressure 2021-09-28 15:30:00 70 mm[Hg] [facility] - [facility] HEIGHT 2021-09-21 21:23:00 162.6 cm WEIGHT 2021-09-21 21:23:00 95.255 kg HEIGHT 2021-09-21 21:23:00 162.6 cm WEIGHT 2021-09-21 21:23:00 95.255 kg height 2021-09-15 13:30:00 64.5 [in_i] [facility] weight 2021-09-15 13:30:00 219.4 [lb_av] [facility] temperature 2021-09-15 13:30:00 97.2 [degF] [facility] bmi 2021-09-15 13:30:00 37.07 kg/m2 [facility] oximetry 2021-09-15 13:30:00 97 % [facility] respiratory rate 2021-09-15 13:30:00 17 /min [facility] blood pressure 2021-09-15 13:30:00 138 mm[Hg] [facility] blood pressure 2021-09-15 13:30:00 75 mm[Hg] [facility] height 2021-08-31 09:40:00 64.5 [in_i] [facility] weight 2021-08-31 09:40:00 217.8 [lb_av] [facility] temperature 2021-08-31 09:40:00 97.2 [degF] [facility] bmi 2021-08-31 09:40:00 36.8 kg/m2 [facility] oximetry 2021-08-31 09:40:00 89 % [facility] respiratory rate 2021-08-31 09:40:00 16 /min [facility] blood pressure 2021-08-31 09:40:00 134 mm[Hg] [facility] - systolic [facility] blood pressure 2021-08-31 09:40:00 71 mm[Hg] [facility] - diastolic [facility] height 2021-08-18 15:10:00 64.5 [in_i] [facility] weight 2021-08-18 15:10:00 218.3 [lb_av] [facility] temperature 2021-08-18 15:10:00 98.1 [degF] [facility] bmi 2021-08-18 15:10:00 36.89 kg/m2 [facility] oximetry 2021-08-18 15:10:00 94 % [facility] respiratory rate 2021-08-18 15:10:00 16 /min [facility] blood pressure 2021-08-18 15:10:00 138 mm[Hg] [facility] - systolic [facility] blood pressure 2021-08-18 15:10:00 72 mm[Hg] [facility] - diastolic [facility] height 2021-07-21 08:40:00 64.5 [in_i] [facility] weight 2021-07-21 08:40:00 220.8 [lb_av] [facility] temperature 2021-07-21 08:40:00 97.2 [degF] [facility] bmi 2021-07-21 08:40:00 37.31 kg/m2 [facility] oximetry 2021-07-21 08:40:00 96 % [facility] respiratory rate 2021-07-21 08:40:00 17 /min [facility] blood pressure 2021-07-21 08:40:00 145 mm[Hg] [facility] - systolic [facility] blood pressure 2021-07-21 08:40:00 73 mm[Hg] [facility] - diastolic [facility] height 2021-07-13 11:40:00 64.5 [in_i] [facility] weight 2021-07-13 11:40:00 219.1 [lb_av] [facility] temperature 2021-07-13 11:40:00 97.9 [degF] [facility] bmi 2021-07-13 11:40:00 37.02 kg/m2 [facility] oximetry 2021-07-13 11:40:00 96 % [facility] respiratory rate 2021-07-13 11:40:00 16 /min [facility] blood pressure 2021-07-13 11:40:00 138 mm[Hg] [facility] - systolic [facility] blood pressure 2021-07-13 11:40:00 71 mm[Hg] [facility] - diastolic [facility] height 2021-05-13 10:40:00 64.5 [in_i] [facility] weight 2021-05-13 10:40:00 221 [lb_av] [facility] temperature 2021-05-13 10:40:00 98 [degF] [facility] bmi 2021-05-13 10:40:00 37.34 kg/m2 [facility] oximetry 2021-05-13 10:40:00 98 % [facility] respiratory rate 2021-05-13 10:40:00 18 /min [facility] blood pressure 2021-05-13 10:40:00 129 mm[Hg] [facility] - [facility] blood pressure 2021-05-13 10:40:00 68 mm[Hg] [facility] - [facility] height 2021-03-21 10:30:00 64.5 [in_i] [facility] weight 2021-03-21 10:30:00 221 [lb_av] [facility] bmi 2021-03-21 10:30:00 37.34 kg/m2 [facility] Systolic blood 2022-03-09 21:03:00 138 mm[Hg] [facility] pressure Diastolic blood 2022-03-09 21:03:00 63 mm[Hg] [facility] pressure Heart rate 2022-03-09 21:03:00 86 /min [facility] Body temperature 2022-03-09 21:03:00 36.5 Sheyla [facility] Respiratory rate 2022-03-09 21:03:00 17 /min [facility] Oxygen saturation in 2022-03-09 21:03:00 95 /min [facility] Arterial blood by Pulse oximetry Body height 2022-03-07 20:32:00 162.6 cm [facility] Body weight 2022-03-07 20:32:00 89.268 kg [facility] BMI 2022-03-07 20:32:00 33.78 kg/m2 [facility] Body height 2022-02-06 20:28:00 162.6 cm [facility] Body weight 2022-02-06 20:28:00 90.719 kg [facility] BMI 2022-02-06 20:28:00 34.33 kg/m2 [facility] Systolic blood 2021-09-24 07:00:00 149 mm[Hg] [facility] Diastolic blood 2021-09-24 07:00:00 68 mm[Hg] [facility] Heart rate 2021-09-24 07:00:00 79 /min [facility] Body temperature 2021-09-24 07:00:00 36.22 Sheyla [facility] Respiratory rate 2021-09-24 07:00:00 18 /min [facility] Oxygen saturation in 2021-09-24 07:00:00 96 /min [facility] Arterial blood by Medical Ce nter Pulse oximetry Body height 2021-09-21 21:23:00 [address] [facility] Body weight 2021-09-21 21:23:[address] [facility] BMI 2021-09-21 21:23:00 36.05 kg/m2 [facility] Procedures Procedure Date / Time Performing Clinician Source Performed MRI SHOULDER W CONTRAST 2022-05-03 22:59:09 [facility] LEFT [place] ARTHROGRAM SHOULDER 2022-05-03 20:34:19 [facility] LEFT XR WRIST 2 VW LEFT 2022-04-14 21:23:12 [facility] XR WRIST 2 VW LEFT 2022-03-16 15:25:20 [facility] [place] AN ELECTIVE 2022-03-09 18:56:00 Mary Pemberton [facility] SUPRAGLOTTIC AIRWAY Vee Moore CARPAL TUNNEL RELEASE, 2022-03-09 18:39:00 [facility] ENDOSCOPIC ORIF, FRACTURE, RADIUS, 2022-03-09 18:39:00 [facility] DISTAL HC NERVE BLOCK, 2022-03-09 17:43:00 Dottie Young [facility] INTERSCALENE W IMG GUID POC GLUCOSE 2022-03-09 16:47:00 [facility] ECG PRE/POST OP 2022-03-07 20:54:21 [facility] COVID-19 QUALITATIVE 2022-03-07 20:44:00 [facility] RT-PCR BASIC METABOLIC PANEL 2022-03-07 20:44:00 [facility] CBC WITH PLATELET AND 2022-03-07 20:44:00 [facility] DIFFERENTIAL HEMOGLOBIN A1C 2022-03-07 20:44:00 [facility] PROTHROMBIN TIME WITH INR 2022-03-07 20:44:00 [facility] PARTIAL THROMBOPLASTIN 2022-03-07 20:44:00 [facility] TIME (PTT) ESTIMATED GFR 2022-03-07 20:44:00 [facility] ospital XR WRIST 3+ VW LEFT 2022-03-07 19:05:01 Osmar Rouse [facility] [place] APPLY FOREARM 2022-03-02 00:17:20 Garrett Chávez [facility] SPLINT,STATIC [facility] [place] STRAPPING OF ELBOW OR 2022-03-02 00:17:20 Garrett Chávez [facility] WRIST Medical Branch NOTICE OF PRIVACY 2022-03-01 22:30:12 Doctor Unassigned, [facility] PRACTICES [facility] CONSENT/REFUSAL FOR 2022-03-01 22:29:08 Doctor Unassigned, [facility] DIAGNOSIS AND TREATMENT [facility] CT, abdomen + pelvis, w/o 2021-10-03 00:00:00 Lalo Snyder contrast Urology CBC W/PLT COUNT & AUTO 2021-09-24 05:48:00 Estuardo Mc [facility] BASIC METABOLIC PANEL 2021-09-24 05:48:00 Estuardo Mc [facility] MAGNESIUM 2021-09-24 05:48:00 Estuardo Mc [facility] PHOSPHORUS 2021-09-24 05:48:00 Estuardo Mc [facility] CBC W/PLT COUNT & AUTO 2021-09-24 05:48:00 Maribell Suresh [facility] CBC W/PLT COUNT & AUTO 2021-09-23 05:05:00 Estuardo Mc [facility] BASIC METABOLIC PANEL 2021-09-23 05:05:00 Etsuardo Mc [facility] MAGNESIUM 2021-09-23 05:05:00 Estuardo Mc [facility] PHOSPHORUS 2021-09-23 05:05:00 Estuardo Mc [facility] CBC W/PLT COUNT & AUTO 2021-09-23 05:05:00 Maribell Suresh [facility] DIFFERENTIAL Center [place] FLUORO NON-SPECIFIC UP 2021-09-22 19:00:00 Estuardo Mc [facility] TO 1 HOUR Center CYSTOSCOPY, WITH URETERAL 2021-09-22 18:19:00 Estuardo Mc [facility] STENT INSERTION Center URINE CULTURE 2021-09-22 04:42:00 Patience [facility] Nkiru Debary URINALYSIS W/ REFLEX URINE 2021-09-22 04:42:00 [facility] N[facility] BLOOD CULTURE 2021-09-22 00:10:00 Patience [facility] Nkiru Debary COMPREHENSIVE METABOLIC 2021-09-22 00:07:00 Patience [facility] PANEL Nkiru Center CBC W/PLT COUNT & AUTO 2021-09-22 00:07:00 Patience [facility] DIFFERENTIAL Nkiru Debary MAGNESIUM 2021-09-22 00:07:00 [facility] PHOS[facility] 2021-09-22 00:07:00 [facility] Nkiru Debary PROTHROMBIN TIME/INR 2021-09-22 00:07:00 [facility] LACTIC ACID, VENOUS 2021-09-22 00:07[facility] CBC W/PLT COUNT & AUTO 2021-09-22 00:07:00 Patience [facility] DIFFERENTIAL Nkiru Center BLOOD CULTURE 2021-09-21 23:58:00 Patience [facility] Nkiru Debary Hysterectomy [facility] Cholecystectomy [facility] Plan of Care Planned Activity Planned Date Details Comments Source Future Scheduled 2022-12-29 Influenza Vaccine (#1) [facility] 00:00:00 [code = Influenza Medical Ce nter Vaccine (#1)] Future Scheduled 2022-10-13 [facility]ACCINE [facility]:19:17 [code = INFLUENZA VACCINE] Future Scheduled 2022-10-13 [facility] Test 21:19:17 malignant neoplasm of colon (procedure) [code = 277438138] Future Scheduled 2022-10-13 [facility] Test 21:19:17 malignant neoplasm of colon (procedure) [code = 669383173] Future Scheduled 2022-10-13 [facility] Test 21:19:17 malignant neoplasm of colon (procedure) [code = 692510139] Future Scheduled 2022-10-13 COVID-19 VACCINE (#1) [facility] Test 21:19:17 [code = COVID-19 VACCINE (#1)] Future Scheduled 2022-10-13 Hepatitis C screening [facility] Test 21:19:17 (procedure) [code = 552783606] Future Scheduled 2022-10-13 BREAST CANCER [facility] Test 21:19:17 SCREENING [code = BREAST CANCER SCREENING] Future Scheduled 2022-10-13 Screening for [facility] Test 21:19:17 malignant neoplasm of colon (procedure) [code = 954834597] Future Scheduled 2022-10-13 Screening for [facility] Test 21:19:17 malignant neoplasm of colon (procedure) [code = 775912283] Future Scheduled 2022-10-13 SHINGLES VACCINES (1 Met [facility] Test 21:19:17 of 2) [code = SHINGLES VACCINES (1 of 2)] Future Scheduled 2022-10-13 65+ [facility]OCOCCAL [facility] 21:19:17 VACCINE (1 - PCV) [code = 65+ PNEUMOCOCCAL VACCINE (1 - PCV)] Future Scheduled 2022-09-[address] [facility] Test 00:00:00 [facility] Screening (12+) [code = Tobacco Cessation Counseling and Screening (12+)] Future Scheduled 2022-09-[address] [facility] Test 00:00:00 [facility] Scre[facility] (12+) [code = Tobacco Cessation Counseling and Screening (12+)] Future Scheduled 2022-06-06 COVID-19 VACCINE (#1) [facility] Test 13:43:44 [code = COVID-19 VACCINE (#1)] Future Scheduled 2022-06-06 Hepatitis C screening [facility] Test 13:43:44 (procedure) [code = 924581855] Future Scheduled 2022-06-06 BREAST CANCER [facility] Test 13:43:44 SCREENING [code = BREAST CANCER SCREENING] Future Scheduled 2022-06-06 COLONOSCOPY SCREENING [facility] Test 13:43:44 [code = COLONOSCOPY SCREENING] Future Scheduled 2022-06-06 SHINGLES VACCINES (1 Met [facility] Test 13:43:44 of 2) [code = SHINGLES VACCINES (1 of 2)] Future Scheduled 2022-06-06 65+ [facility]OCOCCAL [facility] 13:43:44 VACCINE (1 - PCV) [code = 65+ PNEUMOCOCCAL VACCINE (1 - PCV)] Future Scheduled 2022-06-06 INFLUENZA VACCINE [facility] Test 13:43:44 [code = INFLUENZA VACCINE] Future Scheduled 2022-04-[address] [facility] Test 00:00:00 (12+) [code = Medical Center DEPRESSION SCREENING (12+)] Future Scheduled 2022-04-30 FALLS RISK SCREENING [facility] Test 00:00:00 [code = FALLS RISK Medical C enter SCREENING] Future Scheduled 2022-04-[address] [facility] Test 00:00:00 (12+) [code = Medical Center DEPRESSION SCREENING (12+)] Future Scheduled 2022-04-30 FALLS RISK SCREENING [facility] Test 00:00:00 [code = FALLS RISK Medical C enter SCREENING] Future Scheduled 2022-02-06 HEPATITIS B VACCINES Met [facility] Test 20:01:45 (1 of 3 - 3-dose series) [code = HEPATITIS B VACCINES (1 of 3 - 3-dose series)] Future Scheduled 2022-02-06 COVID-19 VACCINE (#1) [facility] Test 20:01:45 [code = COVID-19 VACCINE (#1)] Future Scheduled 2022-02-06 Hepatitis C screening [facility] Test 20:01:45 (procedure) [code = 722295853] Future Scheduled 2022-02-06 BREAST CANCER [facility] Test 20:01:45 SCREENING [code = BREAST CANCER SCREENING] Future Scheduled 2022-02-06 COLONOSCOPY SCREENING [facility] Test 20:01:45 [code = COLONOSCOPY SCREENING] Future Scheduled 2022-02-06 SHINGLES VACCINES (1 Met [facility] Test 20:01:45 of 2) [code = SHINGLES VACCINES (1 of 2)] Future Scheduled 2022-02-06 65+ [facility]OCOCCAL [facility] 20:01:45 VACCINE (1 - PCV) [code = 65+ PNEUMOCOCCAL VACCINE (1 - PCV)] Future Scheduled 2022-02-06 [facility]FLUENZA VACCINE [facility] 20:01:45 [code = INFLUENZA VACCINE] [...] FIRST YEAR if no IPPE)] Future Scheduled 2021-09-[address] [facility] [facility] Test 00:00:00 WELLNESS (YEAR 2 or Medical Center FIRST YEAR if no IPPE) [code = MEDICARE ANNUAL WELLNESS (YEAR 2 or FIRST YEAR if no IPPE)] Future Scheduled 2012-08-07 PNEUMOCOCCAL 65+ YRS [facility] Test 00:00:00 (1 - PCV) [code = Medical Ce nter PNEUMOCOCCAL 65+ YRS (1 - PCV)] Future Scheduled 2012-08-07 PNEUMOCOCCAL 65+ [facility] Test 00:00:00 (1 - PCV) [code = Medical Ce nter PNEUMOCOCCAL 65+ YRS (1 - PCV)] Future Scheduled 1997-08-07 SHINGLES VACCINES ([address] [facility] Test 00:00:00 of 2) [code = SHINGLES Medic al Center VACCINES (1 of 2)] Future Scheduled 1997-08-07 SHINGLES VACCINES ([address] [facility] Test 00:00:00 of 2) [code = SHINGLES Medic al Center VACCINES (1 of 2)] Future Scheduled 1966-08-07 DTAP/TDAP/TD VACCINES [facility] Test 00:00:00 (1 - Tdap) [code = Medical C enter DTAP/TDAP/TD VACCINES (1 - Tdap)] Future Scheduled 1966-08-07 DTAP/TDAP/TD VACCINES [facility] Test 00:00:00 (1 - Tdap) [code = Medical C enter DTAP/TDAP/TD VACCINES (1 - Tdap)] Future Scheduled 1965-08-07 HEPATITIS C SCREENING [facility] Test 00:00:00 [code = HEPATITIS C Medical Center SCREENING] Future Scheduled 1965-08-07 HEPATITIS C SCREENING [facility] Test 00:00:00 [code = HEPATITIS C Medical Center SCREENING] Future Scheduled 1948-02-07 COVID-19 VACCINE (#1) [facility] Test 00:00:00 [code = COVID-[address] VACCINE (#1)] Future Scheduled 1948-02-07 COVID-19 VACCINE (#1) [facility] Test 00:00:00 [code = COVID-[address] VACCINE (#1)] Future Scheduled [address] [facility] Test 00:00:00 malignant neoplasm of Medica l Center breast (procedure) [code = 372981811] Future Scheduled [address] [facility] Test 00:00:00 (combo) [code = CT Medical C enter Colonography (combo)] Future Scheduled [address] [facility] Test 00:00:00 malignant neoplasm [facility] Center colon (procedure) [code = 159176114] Future Scheduled [address] [facility] Test 00:00:00 malignant neoplasm of [facility] Center colon (procedure) [code = 183872814] Future Scheduled 1947 DXA SCAN [code = DXA [facility] Test 00:00:00 SCAN] Medical Center Future Scheduled [address] [facility] Test 00:00:00 malignant ne[facility] colon (procedure) [code = 166199271] Future Scheduled [address] [facility] Test 00:00:00 malignant neoplasm of [facility] Center colon (procedure) [code = 532145437] Future Scheduled 1947 Sigmoidoscopy [code = [facility] Test 00:[facility] S[facility]oscopy] [facility] Cent[facility] r Future Scheduled [address] [facility] Test 00:00:00 (combo) [code = CT Medical C enter Colonography (combo)] Future Scheduled [address] [facility] Test 00:00:00 malignant neoplasm of [facility] Center colon (procedure) [code = 057787248] Future Scheduled [address] [facility] Test 00:00:00 malignant neoplasm of [facility] Center colon (procedure) [code = 420821355] Future Scheduled 1947 DXA SCAN [code = DXA [facility] Test 00:00:00 SCAN] [facility] Future Scheduled [address] [facility] Test 00:00:00 malignant neoplasm of Medica l Center colon (procedure) [code = 291835038] Future Scheduled [address] [facility] Test 00:00:00 malignant neoplasm of Medica l Center colon (procedure) [code = 607964410] Future Scheduled 1947 Sigmoidoscopy [code = [facility] Test 00:[facility] S[facility] Start End Encounter Admission Attending Care Care Encounter Source Date/Time Date/Time Type Type Clinicians Facility Department ID 2022-10-02 Outpatient Felder, [facility] [id number] Common 15:56:00 Tom [id number] [facility] 2022-05-02 Outpatient Felder, [facility] [id number] Common 09:14:00 Tom [id number] [facility] 2022-03-16 [facility], [facility] [id number] Common 10:57:01 Tom 70575 [facility] 2021-11-15 Outpatient Felder, [facility] [id number] Common 10:22:00 Tom [facility] 2021-08-31 Outpatient Felder, [facility] [id number] Common 08:13:00 Tom [facility] 2021-08-29 Outpatient Felder, [facility] [id number] Common 16:06:01 Tom [facility] 2021-08-02 Outpatient Felder, [facility] [id number] Common 15:06:01 Tom [facility] 2021-07-13 Outpatient Felder, [facility] [id number] Common 11:40:00 Tom [facility] 2021-05-25 Outpatient Felder, [facility] [id number] Common 14:11:12 Tom 01608 [facility] 2021-05-25 Outpatient Felder, [facility] [id number] Common 13:59:47 Tom 52543 [facility] 2021-05-25 Outpatient Felder, [facility] [id number] Common 13:46:37 Tom 10995 [facility] 2021-05-25 Outpatient Felder, [facility] [id number] Common 13:43:52 Tom 34616 [facility] 2021-05-25 Outpatient Felder, [facility] [id number] Common 13:36:49 Tom 74950 [facility] 2021-05-25 Outpatient Felder, [facility] [id number] Common 12:50:14 Tom 12091 [facility] 2021-05-25 Outpatient Felder, [facility] [id number] Common 12:30:16 Tom 39965 [facility] 2021-05-25 Outpatient Felder, [facility] [id number] Common 12:29:57 Tom [id number] [facility] 2021-05-25 Outpatient Felder, [facility] ST[facility] [id number] Common 12:28:23 Tom [id number] [facility] 2021-05-25 Outpatient Felder, [facility] [id number] Common 12:08:37 Tom 34670 [facility] 2021-05-25 Outpatient Felder, [facility] [id number] Common 12:07:28 Tom 97978 [facility] 2021-05-25 Outpatient Felder, [facility] [id number] Common 12:01:53 Tom [id number] [facility] 2021-05-25 Outpatient Felder, [facility] [id number] Common 12:01:48 Tom 86216 [facility] 2021-05-25 Outpatient Felder, [facility] [id number] Common 11:49:47 Tom 22726 [facility] 2021-05-25 Outpatient Felder, [facility] [id number] Common 11:34:35 Tom 43339 [facility] 2021-05-25 Outpatient Felder, [facility] [id number] Common 11:27:18 Tom 56612 [facility] 2021-05-25 Outpatient Felder, STLC ST[facility] [id number] Common 11:17:40 Tom [id number] [facility] 2021-05-25 Outpatient Felder, [facility] [id number] Common 11:17:19 Tom 03212 [facility] 2021-05-25 Outpatient Felder, STLC STLC [id number] Common 10:57:41 Tom 22959 [facility] 2022-05-26 2022-05-26 Treatment LeonOsmar Chau 1.2.840.1 104 [id number] Methodi 15:00:00 16:00:00 Leena Singleton 19517.1.1 732 s t 3.430.2.7 Hospit a .3.127036 l .8 2022-05-26 2022-05-26 Treatment Osmar Rouse 1.2.840.1 104 [id number] Methodi 15:00:00 16:00:00 Leena Singleton 87613.1.1 732 s t 3.430.2.7 Hospit a .3.872970 l .8 2022-05-18 2022-05-18 Office Rouse, 1.2.840.1 [id number] 3292 Methodi 08:40:00 09:09:39 Visit Osmar 99868.1.[address] Dank 3.430.2.7 Hospit a .3.578190 l .8 2022-05-18 2022-05-18 Office Rouse, 1.2.840.1 [id number] 9243 Methodi 08:40:00 09:09:39 Visit Osmar 93341.1.[address] Dank 3.430.2.7 Hospit a .3.296135 l .8 2022-05-18 2022-05-18 Outpatient ROUSE, [facility] [id number] [address] [place] [address] 00:00:00 00:00:[address] OSMAR [address] 2022-05-18 2022-05-18 Travel 1.2.840.1 1.2.114.419 6097 142020 Methodi 00:00:00 00:00:[address] 3.430.2.7 0.2.7.3.698 Ho spita .3.611273 084.8 l .8 2022-05-18 2022-05-18 Travel 1.2.840.1 1.2.133.890 6190 046949 Methodi 00:00:00 00:00:[address] 3.430.2.7 0.2.7.3.698 Ho spita .3.706456 084.8 l .8 2022-05-09 2022-05-09 Treatment Osmar Rouse 1.2.840.1 104 [id number] Methodi 11:00:00 12:00:00 Leena Singleton 28512.1.1 727 s t 3.430.2.7 Hospit a .3.149435 l .8 2022-05-09 2022-05-09 Treatment Rouse, Osmar Lauu 1.2.840.1 104 [id number] [id number] Methodi 11:00:00 12:00:00 Leena Singleton 10945.1.1 727 s t 3.430.2.7 Hospit a .3.958199 l .8 2022-05-05 2022-05-05 OFFICE [facility] [id number] Co mmon 00:00:00 00:00:00 VISIT Mick HERNANDEZ PT - CHI LEVEL 4 [facility] 2022-05-03 2022-05-03 [facility], 1.2.840.1 [id number] 64560 25763 Methodi 14:45:00 23:59:00 Encounter Vikaent 43805.1.[address] Dank 3.430.2.7 Hospit a .3.212107 l .8 2022-05-03 2022-05-03 [facility], 1.2.840.1 [id number] 61675 Methodi 14:45:00 23:59:00 Encounter Vikaent 40627.1.[address] Dank 3.430.2.7 Hospit a .3.416113 l .8 2022-05-03 2022-05-03 [facility], 1.2.840.1 [id number] 56359 Methodi 13:05:56 14:44:00 Encounter Vincent 66670.1.[address] Dank 3.430.2.7 Hospit a .3.690557 l .8 2022-05-03 2022-05-03 [facility], 1.2.840.1 [id number] 84312 Methodi 13:05:56 14:44:00 Encounter Vincent 50676.1.[address] Dank 3.430.2.7 Hospit a .3.400664 l .8 2022-05-03 2022-05-03 Travel 1.2.840.1 1.2.134.244 9865 179608 Methodi 00:00:00 00:00:[address] 3.430.2.7 0.2.7.3.698 Ho spita .3.388880 084.8 l .8 2022-05-03 2022-05-03 Travel 1.2.840.1 1.2.226.717 7687 220576 Methodi 00:00:00 00:00:[address] 3.430.2.7 0.2.7.3.698 Ho spita .3.132738 084.8 l .8 2022-04-28 2022-04-28 Evaluation Osmar Rouse 1.2.840.1 10 6051925 [id number] Methodi 13:00:00 14:00:00 Leena Singleton 32761.1.1 290 s t 3.430.2.7 Hospit a .3.705895 l .8 2022-04-28 2022-04-28 Evaluation Osmar Rouse 1.2.840.1 10 [id number] 2520094264 Methodi 13:00:00 14:00:00 ManiAmiraen 41918.1.1 290 s t 3.430.2.7 Hospit a .3.476210 l .8 2022-04-28 2022-04-28 Plan of 1.2.840.1 [id number] 842095 9499 Methodi 00:00:00 00:00:[address] Documentat 3.430.2.7 Hos annmarie ion .3.492539 l .8 2022-04-28 2022-04-28 Plan of 1.2.840.1 [id number] 730147 1429 Methodi 00:00:00 00:00:[address] Documentat 3.430.2.7 Hos annmarie ion .3.919300 l .8 2022-04-27 2022-04-27 (TEL) [facility] [id number] Co mmon 00:00:00 00:00:00 [facility] 2022-04-14 2022-04-14 Office Rouse, 1.2.840.1 [id number] 057461 3269 Methodi 15:20:00 16:16:24 Visit Osmar 66736.1.[address] Dank 3.430.2.7 Hospit a .3.714742 l .8 2022-04-14 2022-04-14 Office Rouse, 1.2.840.1 [id number] 109241 2211 Methodi 15:20:00 16:16:24 Visit Osmar 69439.1.[address] Dank 3.430.2.7 Hospit a .3.567513 l .8 2022-04-14 2022-04-14 Travel 1.2.840.1 1.2.633.748 5559 545114 Methodi 00:00:00 00:00:[address] 3.430.2.7 0.2.7.3.698 Ho spita .3.545820 084.8 l .8 2022-04-14 2022-04-14 Outpatient ROUSE, [facility] [id number] 953 [place] 00:00:00 00:00:[address] OSMAR [address] 2022-04-14 2022-04-14 Travel 1.2.840.1 1.2.381.207 7889 013986 Methodi 00:00:00 00:00:[address] 3.430.2.7 0.2.7.3.698 Ho spita .3.920406 084.8 l .8 2022-04-13 2022-04-13 (INJ) [facility] [id number] Co mmon 00:00:00 00:00:00 Injection Spir it - [facility] 2022-03-31 2022-03-31 Travel 1.2.840.1 1.2.171.130 5323 894369 Methodi 00:00:00 00:00:[address] 3.430.2.7 0.2.7.3.698 Ho spita .3.123650 084.8 l .8 2022-03-31 2022-03-31 Travel 1.2.840.1 1.2.796.808 1260 825962 Methodi 00:00:00 00:00:[address] 3.430.2.7 0.2.7.3.698 Ho spita .3.848394 084.8 l .8 2022-03-30 2022-03-30 OFFICE [facility] [id number] Co mmon 00:00:00 00:00:00 VISIT Spirit ESTAB PT - CHI LEVEL 2 [facility] 2022-03-16 2022-03-16 Office Rouse, 1.2.840.1 [id number] 070121 1587 Methodi 09:10:00 10:13:42 Visit Vincent 02636.1.[address] Dank 3.430.2.7 Hospit a .3.525225 l .8 2022-03-16 2022-03-16 Office Rouse, 1.2.840.1 [id number] 776732 8289 Methodi 09:10:00 10:13:42 Visit Vincent 73171.1.[address] Dank 3.430.2.7 Hospit a .3.534891 l .8 2022-03-16 2022-03-16 Travel 1.2.840.1 1.2.316.911 4316 931245 Methodi 00:00:00 00:00:[address] 3.430.2.7 0.2.7.3.698 Ho spita .3.411889 084.8 l .8 2022-03-16 2022-03-16 Outpatient ROUSE, [facility] [id number] 967 [place] 00:00:00 00:00:00 OSMAR [address] 2022-03-16 2022-03-16 Travel 1.2.840.1 1.2.767.996 6772 576872 Methodi 00:00:00 00:00:[address] 3.430.2.7 0.2.7.3.698 Ho spita .3.941686 084.8 l .8 2022-03-10 2022-03-10 Telephone Hector, 1.2.840.1 [id number] 2099 674393 Methodi 00:00:00 00:00:[address] Jenaie 3.430.2.7 Hospit a .3.173736 l .8 2022-03-10 2022-03-10 Telephone Paula, 1.2.840.1 [id number] 2099 445829 Methodi 00:00:00 00:00:[address] 3.430.2.7 Hospit a .3.087103 l .8 2022-03-10 2022-03-10 Telephone Paula, 1.2.840.1 [id number] 2099 536425 Methodi 00:00:00 00:00:[address] 3.430.2.7 Hospit a .3.967915 l .8 2022-03-10 2022-03-10 Telephone Hector, 1.2.840.1 [id number] 2099 897075 Methodi 00:00:00 00:00:[address] Jeanie 3.430.2.7 Hospit a .3.887368 l .8 2022-03-10 2022-03-10 Telephone Paula, 1.2.840.1 [id number] 2099 153853 Methodi 00:00:00 00:00:[address] 3.430.2.7 Hospit a .3.017753 l .8 2022-03-10 2022-03-10 Telephone Paula, 1.2.840.1 [id number] 2099 643594 Methodi 00:00:00 00:00:[address] 3.430.2.7 Hospit a .3.601037 l .8 2022-03-09 2022-03-09 [facility], 1.2.840.1 [id number] 73132 85470 Methodi 09:31:00 15:38:00 Encounter Vincent 09877.1.[address] Dank 3.430.2.7 Hospit a .3.163009 l .8 2022-03-09 2022-03-09 [facility], 1.2.840.1 [id number] 93100 Methodi 09:31:00 15:38:00 Encounter Vincent 21824.1.[address] Dank 3.430.2.7 Hospit a .3.557529 l .8 2022-03-09 2022-03-09 Anesthesia Dottie Young 1.2.840.1 1 15403428 [id number] Methodi 12:39:00 14:00:00 Event Fidencio, Shannan 41999.1.[address] 3.430.2.7 Hospit a .3.619240 l .8 2022-03-09 2022-03-09 Anesthesia Dottie Young 1.2.840.1 1 20496965 [id number] Methodi 12:39:00 14:00:00 Event Fidencio, Shannan 53180.1.[address] 3.430.2.7 Hospit a .3.071672 l .8 2022-03-09 2022-03-09 Surgery [facility], 1.2.840.1 [id number] 775789 8231 Methodi 12:15:00 13:55:[address] Dank 3.430.2.7 Hospit a .3.012863 l .8 2022-03-09 2022-03-09 Surgery [facility], 1.2.840.1 [id number] 148434 2110 Methodi 12:15:00 13:55:[address] Dank 3.430.2.7 Hospit a .3.780568 l .8 2022-03-09 2022-03-09 Travel 1.2.840.1 1.2.060.279 7118 455728 Methodi 00:00:00 00:00:[address] 3.430.2.7 0.2.7.3.698 Ho spita .3.201479 084.8 l .8 2022-03-09 2022-03-09 Travel 1.2.840.1 1.2.120.624 4707 042313 Methodi 00:00:00 00:00:[address] 3.430.2.7 0.2.7.3.698 Ho spita .3.634378 084.8 l .8 2022-03-07 2022-03-07 Pre-Admiss Rouse, 1.2.840.1 [id number] 693 7502363 Methodi 15:00:00 16:00:00 ion Vincent 22234.1.[address] Testing Dank 3.430.2.7 Hospit a .3.304329 l .8 2022-03-07 2022-03-07 Pre-Admiss Rouse, 1.2.840.1 [id number] 447 7406542 Methodi 15:00:00 16:00:00 ion Vincent 77787.1.[address] Testing Dank 3.430.2.7 Hospit a .3.544903 l .8 2022-03-07 2022-03-07 Office Rouse, 1.2.840.1 [id number] 307191 6302 Methodi 13:00:00 13:57:43 Visit Vincent 27628.1.[address] Dank 3.430.2.7 Hospit a .3.122823 l .8 2022-03-07 2022-03-07 Office Rouse, 1.2.840.1 [id number] 698145 8199 Methodi 13:00:00 13:57:43 Visit Vincent 58666.1.[address] Dank 3.430.2.7 Hospit a .3.130336 l .8 2022-03-07 2022-03-07 Transcribe Rouse, 1.2.840.1 [id number] 414 0276266 Methodi 00:00:00 00:00:00 Orders Vincent 21613.1.[address] Dank 3.430.2.7 Hospit a .3.398783 l .8 2022-03-07 2022-03-07 Travel 1.2.840.1 1.2.220.974 3947 683264 Methodi 00:00:00 00:00:[address] 3.430.2.7 0.2.7.3.698 Ho spita .3.610804 084.8 l .8 2022-03-07 2022-03-07 [facility] [id number] 312 [place] 00:00:00 00:00:00 VINCENT [address] 2022-03-07 2022-03-07 Transcribe Rouse, 1.2.840.1 [id number] 013 5902302 Methodi 00:00:00 00:00:00 Orders Vincent 41449.1.[address] Dank 3.430.2.7 Hospit a .3.516206 l .8 2022-03-07 2022-03-07 Travel 1.2.840.1 1.2.412.030 8725 505104 Methodi 00:00:00 00:00:[address] 3.430.2.7 0.2.7.3.698 Ho spita .3.853321 084.8 l .8 2022-03-06 2022-03-06 (TEL) [facility]C [facility] [id number] Co mmon 00:00:00 00:00:00 [facility] 2022-03-02 2022-03-02 (TEL) STLMLC [facility] [id number] Co mmon 00:00:00 00:00:00 [facility] 2022-03-01 2022-03-01 [facility]iodemetrice [facility] 1.2.991.220 8117 5904 [facility] 17:47:00 19:37:00 Garrett HE 350.1.13.10 i ty of Supa CRUM 4.2.7.2.686 [facility] 084.3248060 [place] 243934 [place] 2022-03-01 2022-03-01 Emergency X SAIRA [facility] ERT [id number] 53 [facility] 17:47:00 19:37:00 GARRETT klaus of [facility] 2022-02-10 2022-02-10 OFFICE STLMLC ST[facility] [id number] Co mmon 00:00:00 00:00:00 VISIT EST Spir it PT LEVEL 3 - [facility] 2022-02-09 2022-02-09 (TEL) STLMLC [facility] [id number] Co mmon 00:00:00 00:00:00 Spirit - [facility] 2022-02-06 2022-02-06 Office Rouse, 1.2.840.1 [id number] 155334 9396 Methodi 14:50:00 16:55:25 Visit Osmar 83462.1.[address] Dank 3.430.2.7 Hospit a .3.980778 l .8 2022-02-06 2022-02-06 Office Rouse, 1.2.840.1 [id number] 879725 7200 Methodi 14:50:00 16:55:25 Visit Osmar 84347.1.[address] Dank 3.430.2.7 Hospit a .3.206422 l .8 2022-02-06 2022-02-06 Travel 1.2.840.1 1.2.651.895 4003 986023 Methodi 00:00:00 00:00:[address] 3.430.2.7 0.2.7.3.698 Ho spita .3.068445 084.8 l .8 2022-02-06 2022-02-06 Travel 1.2.840.1 1.2.762.687 3186 604826 Methodi 00:00:00 00:00:[address] 3.430.2.7 0.2.7.3.698 Ho spita .3.647043 084.8 l .8 2022-02-03 2022-02-03 PATRICIA Tafoya 2.16.840. 2.16.840.1. CLA XCSE33 [facility] 20:00:00 21:00:00 Casper Soto.975038. 828179.4.6. 9YW [facility] 4.6.83969 [id number] 56145 2022-01-26 2022-01-26 Outpatient Czerwinski_ [facility] 537 [facility] 00:00:00 00:00:00 K 0929 Medica l Group 2022-01-26 2022-01-26 Outpatient Czerwinski_ [facility] 537 [facility] 00:00:00 00:00:00 K 0506 Medica l Group 2022-01-25 2022-01-25 OFFICE STLMLC [facility] [id number] Co mmon 00:00:00 00:00:00 [facility] 2 [facility] 2022-01-20 2022-01-20 Travel 1.2.840.1 1.2.334.124 9107 924958 Methodi 00:00:00 00:00:[address] 3.430.2.7 0.2.7.3.698 Ho spita .3.503314 084.8 l .8 2022-01-20 2022-01-20 Travel 1.2.840.1 1.2.550.050 0885 716326 Methodi 00:00:00 00:00:[address] 3.430.2.7 0.2.7.3.698 Ho spita .3.960862 084.8 l .8 2022-01-12 2022-01-12 (TEL) STLMLC [facility] [id number] Co mmon 00:00:00 00:00:00 Spirit - [facility] 2022-01-11 2022-01-11 OFFICE STLMLC STLMLC [id number] Co mmon 00:00:00 00:00:00 [facility] L[facility] 2 [facility] 2022-01-09 2022-01-09 Outpatient FOG_Mehlhof AOSM AOSM 641 3587-20 [place] 00:00:00 00:00:00 Jenny 639679 [facility] 2021-12-27 2021-12-27 OFFICE STLMLC STLC [id number] Co mmon 00:00:00 00:00:00 [facility]IT [facility] - [facility]I LEV[facility] 2 [facility] 2021-12-12 2021-12-12 ([place]) Nurse [facility] [id number] Common 00:00:00 00:00:00 Visit [facility] 2021-11-28 2021-11-28 (TEL) STLMLC STLC [id number] Co mmon 00:00:00 00:00:00 [facility] 2021-11-28 2021-11-28 ([place]) Nurse [facility] [id number] Common 00:00:00 00:00:00 Visit [facility] 2021-11-11 2021-11-11 Outpatient CURRY_S DMG DMG [id number] 022 [facility] 03:26:00 03:26:00 0715 Medica l Group 2021-10-19 2021-10-19 Outpatient Baum_L [facility] [id number]- 202 [place] 09:02:00 09:02:00 96203 [facility] 2021-10-17 2021-10-17 Outpatient Baum_L [facility] U [id number]- 202 [place] 02:53:00 02:53:00 12792 [facility] 2021-10-17 2021-10-17 Outpatient PIERO Quintero Zoe [id number] 00:00:00 00:00:00 Margarita Sosa [id number] 2021-10-17 Margarita Sosa U [place] - [id number] [place] 00:00:00 00:00:00 Leon [employer]: [facility] [address] [facility] [address], [place] [address] , Ph. 2021-10-11 2021-10-12 Outpatient E [facility] [id number] [facility] 21:36:00 14:20:00 VINCENTIA 2021-10-06 2021-10-06 SUB ANNUAL STLMLC STLMLC [id number] [facility] 00:00:00 00:00:00 MCR Spirit WELLNESS - CHI VISIT [facility] 2021-10-06 2021-10-06 OFFICE STLMLC STLMLC [id number] [place] 00:00:00 00:00:00 VISIT Spirit ESTAB PT - CHI LEVEL 4 [facility] 2021-10-04 2021-10-04 Outpatient Baum_L U [facility] [place] [id number]- [place] 10:53:00 10:53:00 [facility] 2021-10-03 2021-10-03 Outpatient Baum_L [facility] [place] [id number]- [place] 05:53:00 05:53:00 [id number] [facility] 2021-10-03 2021-10-03 Outpatient Alexandro, [facility] [id number] 00:00:00 00:00:00 Estuardo [id number] 2021-10-03 2021-10-03 Estuardo [facility] [place] - [id number] [place] 00:00:00 00:00:00 MD Alexandro: [facility] [address] [facility] [address], [place] [address] , Ph. 2021-09-30 2021-09-30 Outpatient Baum_L [facility] [place] [place] [id number]- [place] 05:15:00 05:15:00 [facility] 2021-09-28 2021-09-28 Outpatient Baum_L [facility] U [id number] [place] 12:20:00 12:20:00 [id number] [facility] 2021-09-28 2021-09-28 (EST. STLMLC STLMLC [id number] Co mmon 00:00:00 00:00:00 VIDEO) EST Spi rit VIRTUAL - CHI VIDEO [facility] 2021-09-27 2021-09-27 Outpatient Baum_L [facility] [id number] [place] 10:19:00 10:19:00 [id number] [facility] 2021-09-26 2021-09-26 [facility] [id number] [facility] m[place] 00:00:00 00:00:00 [facility] 2021-09-21 2021-09-24 Hospital ER Javy KennedyBenito [facility] [id number] [facility] 21:05:00 13:08:00 Encounter Suresh Maribell [facility] 2021-09-21 2021-09-24 [facility] [id number] [facility] 21:05:00 13:08:00 MARIBELL 2021-09-22 2021-09-22 Anesthesia Jacob Roberson [facility] [id number] [facility] 18:21:00 19:13:00 Event [facility] 2021-09-22 2021-09-22 Surgery Alexandro, [facility] [id number] 17:45:00 18:29:00 [facility] 2021-09-22 2021-09-22 [facility] [id number] Co m[facility] 00:00:00 00:00:00 [facility] 2021-09-21 2021-09-21 Travel [facility] [id number] [facility] 00:00:00 [facility] 2021-09-20 2021-09-20 [facility]EL[facility] ST[facility] [id number] Co mmon 00:00:00 00:00:00 [facility] 2021-09-15 2021-09-15 OFFICE STLC STLC [id number] [place] m[place] 00:00:00 00:00:00 VISIT Mick HERNANDEZ PT - CHI LEVEL 2 [facility] 2021-08-31 2021-08-31 OFFICE STLC STLC [id number] [place] m[place] 00:00:00 00:00:00 VISIT Spirit ESTAB PT - CHI LEVEL 4 [facility] 2021-08-18 2021-08-18 OFFICE STLMLC STLMLC [id number] Co mmon 00:00:00 00:00:00 VISIT Spirit ESTAB PT - CHI LEVEL 4 [facility] 2021-08-04 2021-08-04 ([place]) Nurse STLMLC STLMLC [id number] [facility] 00:00:00 00:00:00 Visit Spirit - CHI [facility] 2021-08-02 2021-08-02 OFFICE STLMLC STLMLC [id number] Co mmon 00:00:00 00:00:00 VISIT Spirit ESTAB PT - CHI LEVEL 1 [facility] 2021-08-01 2021-08-01 (TEL) STLMLC STLMLC [id number] [facility] m[facility] 00:00:00 00:00:00 [facility] 2021-07-25 2021-07-25 (TEL) STLMLC STLMLC [id number] Co mmon 00:00:00 00:00:00 [facility] 2021-07-21 2021-07-21 OFFICE STLMLC STLMLC [id number] Co mmon 00:00:00 00:00:00 VISIT EST Spir it PT LEVEL 3 - CHI [facility] 2021-07-18 2021-07-18 (TEL) STLMLC STLMLC [id number] [facility] m[facility] 00:00:00 00:00:00 [facility] 2021-07-13 2021-07-13 OFFICE STLMLC STLMLC [id number] [facility] m[facility] 00:00:00 00:00:00 VISIT Spirit ESTAB PT - CHI LEVEL 2 [facility] 2021-07-13 2021-07-13 (TEL) STLMLC STLMLC [id number] Co mmon 00:00:00 00:00:00 [facility] 2021-07-12 2021-07-12 OFFICE STLMLC STLMLC [id number] Co mmon 00:00:00 00:00:00 VISIT Spirit ESTAB PT - CHI LEVEL 1 [facility] 2021-07-11 2021-07-11 (TEL) STLMLC STLMLC [id number] Co mmon 00:00:00 00:00:00 [facility] 2021-07-07 2021-07-07 ([place]) Nurse STLMLC STLMLC [id number] Common 00:00:00 00:00:00 Visit [facility] 2021-06-23 2021-06-23 (INJ) STLMLC STLMLC [id number] Co mmon 00:00:00 00:00:00 Injection Spir it [facility] 2021-05-26 2021-05-26 (TEL) STLMLC STLMLC [id number] Co mmon 00:00:00 00:00:00 [facility] 2021-05-20 2021-05-20 ([place]) Nurse STLMLC STLMLC [id number] Common 00:00:00 00:00:00 Visit [facility] 2021-05-20 2021-05-20 (TEL) STLMLC STLMLC [id number] Co mmon 00:00:00 00:00:00 [facility] 2021-05-13 2021-05-13 OFFICE STLMLC STLMLC [id number] Co mmon 00:00:00 00:00:00 VISIT EST Spir it PT LEVEL 3 [facility] 2021-05-12 2021-05-12 (TEL) STLMLC STLMLC [id number] Co mmon 00:00:00 00:00:00 [facility] 2021-05-06 2021-05-06 (TEL) STLMLC STLMLC [id number] Co mmon 00:00:00 00:00:00 [facility] 2021-05-06 2021-05-06 ([place]) Nurse STLMLC STLMLC [id number] Common 00:00:00 00:00:00 Visit [facility] 2021-04-15 2021-04-15 ([place]) Nurse STLMLC STLMLC [id number] Common 00:00:00 00:00:00 Visit [facility] 2021-04-05 2021-04-05 (TEL) STLMLC STLMLC [id number] Co mmon 00:00:00 00:00:00 [facility] 2021-04-01 2021-04-01 ([place]) Nurse STLMLC STLMLC [id number] Common 00:00:00 00:00:00 Visit [facility] 2021-03-21 2021-03-21 (TEL) STLMLC STLMLC [id number] Co mmon 00:00:00 00:00:00 [facility] 2021-03-21 2021-03-21 OFFICE STLMLC STLMLC [id number] Co mmon 00:00:00 00:00:00 VISIT EST Spir it PT LEVEL 3 [facility] 2021-03-18 2021-03-18 (INJ) STLMLC STLMLC [id number] Co mmon 00:00:00 00:00:00 Injection Spir [facility] 2021-02-16 2021-02-16 (INJ) STLMLC STLMLC [id number] Co mmon 00:00:00 00:00:00 Injection Spir [facility] 2021-02-02 2021-02-02 (TEL) STLMLC STLMLC [id number] Co mmon 00:00:00 00:00:00 [facility] 2021-01-20 2021-01-20 (TEL) STLMLC STLMLC [id number] Co mmon 00:00:00 00:00:00 [facility] 2021-01-12 2021-01-12 Outpatient STLMLC STLMLC [id number] Common 00:00:00 00:00:00 [facility] 2021-01-12 2021-01-12 Outpatient STLMLC STLMLC [id number] Common 00:00:00 00:00:00 [facility] 2021-01-04 2021-01-04 (TEL) STLMLC STLMLC [id number] Co mmon 00:00:00 00:00:00 [facility] 2020-12-29 2020-12-29 Outpatient STLMLC STLMLC [id number] Common 00:00:00 00:00:00 [facility] 2020-12-29 2020-12-29 Outpatient STLMLC STLMLC [id number] Common 00:00:00 00:00:00 [facility] 2020-12-22 2020-12-22 Outpatient STLMLC STLMLC [id number] Common 00:00:00 00:00:00 [facility] 2020-12-17 2020-12-17 Outpatient STLMLC STLMLC [id number] Common 00:00:00 00:00:00 [facility] 2020-12-08 2020-12-08 Outpatient CURRY_S DMG DMG [id number] [facility] 01:39:00 01:39:00 [facility] 2020-12-08 2020-12-08 Outpatient STLMLC STLMLC [id number] Common 00:00:00 00:00:00 [facility] 2020-11-18 2020-11-18 Outpatient STLMLC STLMLC [id number] Common 00:00:00 00:00:00 [facility] 2020-11-11 2020-11-11 Outpatient STLMLC STLMLC [id number] Common 00:00:00 00:00:00 [facility] 2020-11-10 2020-11-10 Outpatient STLMLC STLMLC [id number] Common 00:00:00 00:00:00 [facility] 2020-11-04 2020-11-04 Outpatient STLMLC STLMLC [id number] Common 00:00:00 00:00:00 [facility] 2020-10-29 2020-10-29 Outpatient Kautz_S DMG DMG [id number] [facility] 02:30:00 02:30:00 [facility] 2020-10-15 2020-10-15 Outpatient STLMLC STLMLC [id number] Common 00:00:00 00:00:00 [facility] 2020-09-24 2020-09-24 Outpatient DMG DMG [id number] [facility] 08:00:00 08:00:00 [facility] 2020-09-16 2020-09-16 Outpatient STLMLC STLMLC [id number] Common 00:00:00 00:00:00 [facility] 2020-09-07 2020-09-07 Outpatient STLMLC STLMLC [id number] Common 00:00:00 00:00:00 [facility] 2020-09-02 2020-09-02 Outpatient STLMLC STLMLC [id number] Common 00:00:00 00:00:00 [facility] 2020-08-24 2020-08-24 Outpatient STLMLC STLMLC [id number] Common 00:00:00 00:00:00 [facility] 2020-08-05 2020-08-05 Outpatient STLMLC STLMLC [id number] Common 00:00:00 00:00:00 [facility] 2020-07-22 2020-07-22 Outpatient STLMLC STLMLC [id number] Common 00:00:00 00:00:00 [facility] 2020-06-09 2020-06-09 Outpatient STLMLC STLMLC [id number] Common 00:00:00 00:00:00 [facility] 2020-06-02 2020-06-02 Outpatient STLMLC STLMLC [id number] Common 00:00:00 00:00:00 [facility] 2020-05-13 2020-05-13 Outpatient STLMLC STLMLC [id number] Common 00:00:00 00:00:00 [facility] 2020-04-28 2020-04-28 Outpatient STLMLC STLMLC [id number] Common 00:00:00 00:00:00 [facility] 2020-04-13 2020-04-13 Outpatient STLMLC STLMLC [id number] Common 00:00:00 00:00:00 [facility] 2020-03-30 2020-03-30 Outpatient STLMLC STLMLC [id number] Common 00:00:00 00:00:00 [facility] 2020-03-22 2020-03-22 Outpatient STLMLC STLMLC [id number] Common 00:00:00 00:00:00 [facility] 2020-03-16 2020-03-16 Outpatient STLMLC STLMLC [id number] Common 00:00:00 00:00:00 [facility] 2020-03-02 2020-03-02 Outpatient STLMLC STLMLC [id number] Common 00:00:00 00:00:00 [facility] 2020-02-20 2020-02-20 Outpatient STLMLC STLMLC [id number] Common 00:00:00 00:00:00 [facility] 2020-01-26 2020-01-26 Outpatient STLMLC STLMLC [id number] Common 00:00:00 00:00:00 [facility] 2020-01-15 2020-01-15 [facility] [id number] Common 14:00:00 14:00:[address] [facility] 2019-12-29 2019-12-29 [facility] [id number] Common 15:30:00 15:30:[address] [facility] 2019-12-15 2019-12-15 [facility] [id number] Common 15:30:00 15:30:[address] [facility] 2019-12-09 2019-12-09 [facility] [id number] Common 09:51:00 09:51:[address] [facility] 2019-12-01 2019-12-01 [facility] [id number] Common 16:45:00 16:45:[address] [facility] 2019-11-17 2019-11-17 [facility] [id number] Common 10:15:00 10:15:[address] [facility] 2019-10-30 2019-10-30 [facility] [id number] Common 16:00:00 16:00:[address] [facility] 2019-10-30 2019-10-30 [facility] [id number] Common 15:30:00 15:30:[address] [facility] 2019-10-16 2019-10-16 [facility] [id number] Common 13:30:00 13:30:[address] [facility] 2019-08-20 2019-08-20 [facility] [id number] Common 15:08:00 15:08:[address] [facility] 2019 2019 [facility] [id number] Common 10:45:00 10:45:[address] [facility] 2019-07-08 2019-07-08 [facility] [id number] Common 13:30:00 13:30:[address] [facility] 2019-07-02 2019-07-02 [facility] [id number] Common 11:14:00 11:14:[address] [facility] 2019-06-18 2019-06-18 [facility] [id number] Common 06:25:00 06:25:[address] [facility] 2019-06-17 2019-06-17 [facility] [id number] Common 14:15:00 14:15:[address] [facility] 2019-05-15 2019-05-15 [facility] [id number] Common 08:25:00 08:25:00 [facility] 2019-05-13 2019-05-13 [facility] [id number] Common 14:39:00 14:39:00 t [facility] Sp[facility] t and Joint [facility] 2019-05-12 2019-05-12 [facility] [id number] Common 14:11:00 14:11:00 t [facility] 2019-05-07 2019-05-07 [facility] [id number] Common 13:00:00 13:00:[address] [facility] 2019-05-05 2019-05-05 [facility] [id number] Common 10:15:00 10:15:[address] [facility] 2019-05-01 2019-05-01 [facility] [id number] Common 08:30:00 08:30:[address] [facility] 2019-04-15 2019-04-15 [facility] [id number] Common 15:30:00 15:30:00 t [facility] t [facility] 2019-04-11 2019-04-11 [facility] [id number] Common 11:41:00 11:41:00 t [facility] Sp[facility] t and Joint [facility] 2019-04-02 2019-04-02 [facility] [id number] Common 11:00:00 11:00:00 t [facility] Sp[facility] t and [facility] 2019-03-05 2019-03-05 [facility] [id number] Common 13:00:00 13:00:[address] [facility] 2019-03-05 2019-03-05 [facility] [id number] Common 11:24:00 11:24:[address] [facility] 2019-02-21 2019-02-21 [facility] [id number] Common 09:01:00 09:01:00 t Bone Bone and Spiri t and Joint [facility] 2019-02-12 2019-02-12 [facility] [id number] Common 16:21:00 16:21:00 t Bone Bone and Spiri t and Joint [facility] 2019-02-11 2019-02-11 [facility] [id number] Common 14:30:00 14:30:00 t Bone Bone and Spiri t and Joint [facility] - [facility] 2019-01-30 2019-01-30 [facility] [id number] Common 13:10:00 13:10:00 t [facility] Bone and Spiri t and Joint [facility] 2019-01-29 2019-01-29 [facility] [id number] Common 09:15:00 09:15:[address] [facility] 2018-12-23 2018-12-23 [facility] [id number] Common 14:30:00 14:30:00 t [facility] Bone and Spiri t and Joint [facility] 2018-12-17 2018-12-17 [facility] [id number] Common 13:15:00 13:15:[address] [facility] 2018-10-03 2018-10-03 [facility] [id number] Common 13:30:00 13:30:00 t Bone Bone and Spiri t and Joint [facility] 2018-09-12 2018-09-12 [facility] [id number] Common 12:09:00 12:09:00 t Bone Bone and Spiri t and Joint [facility] - [facility] 2018-09-11 2018-09-11 [facility] [id number] Common 10:28:00 10:28:00 t Bone Bone and Spiri t and Joint [facility] 2018-09-05 2018-09-05 [facility] [id number] Common 14:45:00 14:45:[address] [facility] 2018-08-26 2018-08-26 [facility] [id number] Common 13:00:00 13:00:[address] [facility] 2018-07-29 2018-07-29 [facility] [id number] Common 16:45:00 16:45:[address] [facility] 2018-07-29 2018-07-29 [facility] [id number] Common 15:46:00 15:46:[address] [facility] 2018-07-10 2018-07-10 [facility] [id number] Common 15:43:00 15:43:[address] [facility] 2018-06-25 2018-06-25 [facility] [id number] Common 10:30:00 10:30:[address] [facility] 2018-05-30 2018-05-30 [facility] [id number] Common 16:16:00 16:16:[address] [facility] 2018-05-27 2018-05-27 [facility] [id number] Common 13:00:00 13:00:[address] [facility] 2018-05-20 2018-05-20 [facility] [id number] Common 12:05:00 12:05:[address] [facility] 2017-11-20 2017-11-20 [facility] [id number] Common 10:36:00 10:36:[address] [facility] 2017-10-02 2017-10-02 [facility] [id number] Common 13:15:00 13:15:[address] [facility] 2017-09-13 2017-09-13 [facility] [id number] Common 10:07:00 10:07:[address] [facility] 2017-09-12 2017-09-12 [facility] [id number] Common 10:16:00 10:16:[address] [facility] 2017-09-11 2017-09-11 [facility] [id number] Common 13:15:00 13:15:[address] [facility] 2017-08-24 2017-08-24 [facility] [id number] Common 08:15:00 08:15:[address] [facility] 2017-08-22 2017-08-22 [facility] [id number] Common 13:00:00 13:00:[address] [facility] Results Test Description Test Time Test Comments Results Result Comments Source POC glucose 2022-03-09 16:56:00 Test Item Value Reference Range Interpretation Comme nts POC glucose (test code = 118 mg/dL 65-99 H Ope rator Name: Valeriano Slater [id number]) ID: [id number] hartable: RN Notified Lab Interpretation (test code = Abnormal 86957-7) [facility] [id number] 16:56:00 Test Item Value Reference Range Interpretation Comments POC glucose (test code 118 mg/dL 65-99 H Opera tor Name: Bal = 98600-8) Bryon ID : [id number] able: RN Notified Lab Interpretation Abnormal (test code = 22487-3) [facility] Pre/Post [id number] 20:54:04 Test Item Value Reference Range Interpretation Comments Ventricular rate (test 66 code = 253) Atrial rate (test code = 66 255) MN interval (test code = 152 266) QRSD [...] Sams MD ([id number]) on 03/08/2022 2:53:06 PM [facility] Pre/Post [id number] 20:54:04 Test Item Value Reference Range Interpretation Comments Ventricular rate (test 66 code = 253) Atrial rate (test code = 66 255) MN interval (test code = 152 266) QRSD [...] Sams MD ([id number]) on 03/08/2022 2:53:06 PM [facility] [Presence] in Respiratory specimen by CONNER with probe [id number] 22:05:44 Test Item Value Reference Range Interpretation Comments SARS-CoV-2 (COVID-19) RNA Not detected [Presence] in Respiratory specimen by CONNER with probe detection (test code = 12483-8) Whether patient is employed in a Unknown healthcare setting (test code = 79644-7) Whether the patient has symptoms Unknown related to condition of interest (test code = 30739-8) Whether the patient was Unknown hospitalized for condition of interest (test code = 56215-0) Whether the patient was admitted Unknown to intensive care unit (ICU) for condition of interest (test code = 32755-9) Whether patient resides in a Unknown congregate care setting (test code = 70423-8) status (test code = Unknown 49268-6) Date and time of symptom onset Unknown (test code = 72566-6) [facility] Urine by Culture 2021-10-07 00:00:00 Test Item Value Reference Range Interpretation Comments Bacteria identified in Urine by see below no growth A Culture (test code = 630-4) [facility] UrologyUrinalysis macro (dipstick) panel - [id number] 10:55:00 Test Item Value Reference Range Interpretation [...] nitrite (test code = negative neg nitrite) [facility] UrologyUrinalysis macro (dipstick) panel - [id number] 10:55:00 Test Item Value Reference Range Interpretation [...] nitrite (test code = negative neg nitrite) [facility] UrologyBLOOD [id number] 04:00:29 Test Item Value Reference Range Interpretation Comments CULTURE (BEAKER) (test No growth in 5 days code = 1095) BLOOD [id number] 04:00:28 Test Item Value Reference Range Interpretation Comments CULTURE (BEAKER) (test No growth in 5 days code = 1095) Urine [id number] 08:32:56 Test Item Value Reference Range Interpretation Comments Result (test code = 6463-4) No growth [id number] 07:13:57 Test Item Value Reference Range Interpretation Comments MAGNESIUM (BEAKER) 2.1 mg/dL 1.5-3.0 Specimen slightly (test code = 627) hemolyzed Oil Mixer ID - LITOOperator ID - LITOOperator ID - LITOOperator ID - LITOBASIC METABOLIC [id number] 07:12:39 Test Item Value Reference Range Interpretation [...] S NOT APPLICABLE FOR DIALYSIS PATIEN TS. Oil Mixer ID - LITOOperator ID - LITOOperator ID - LITOOperator ID - LITOOperator ID - LITOOperator ID - LITOOperator ID - LITOOperator ID - LITOOperator ID - [id number] 07:11:21 Test Item Value Reference Range Interpretation Comments PHOSPHORUS (BEAKER) 2.4 mg/dL 2.5-4.5 L Specimen slightly (test code = 604) hemolyzed Oil Mixer ID - LITOCBC W/PLT COUNT & AUTO [id number] 06:52:06 Test Item Value Reference Range Interpretation [...] H PERCENT (BEAKER) (test code = 2801) [id number] 06:14:42 Test Item Value Reference Range Interpretation Comments MAGNESIUM (BEAKER) (test code = 2.2 mg/dL 1.5-3.0 627) Oil Mixer ID - jlzx13Spefpled ID - awgv84Xazxursk ID - vame58Xgidjepu ID - [id number] BASIC METABOLIC [id number] 06:13:34 Test Item Value Reference Range Interpretation [...] S NOT APPLICABLE FOR DIALYSIS PATIEN TS. Oil Mixer ID - ewje27Nbpjvznp ID - xrmb90Yoqijgqj ID - hosi80Hoedtoek ID - wafm32Xakpehnc ID - fbgv11Nhybflqq ID - xgqu34Azpmfhap ID - xpvr18Blrrwptn ID - fimn79Lkoetkdu ID - jpqr10Kuzkyrrl ID - vsao35KTQ W/PLT COUNT & AUTO [id number] 06:12:05 Test Item Value Reference Range Interpretation [...] H PERCENT (BEAKER) (test code = 2801) [id number] 06:12:02 Test Item Value Reference Range Interpretation Comments PHOSPHORUS (BEAKER) (test code = 2.1 mg/dL 2.5-4.5 L 604) Oil Mixer ID - [id number], FLUORO, NON-SPECIFIC, UP TO 1 [id number] 19:00:00 Reason for exam:->cysto w/ stent placement [facility]ENTER[facility]ALIA PIERCE : 1945 Sex: FAn imaging unit was utilized for this procedure. No radiologist interpretation was requested. Refer to the EMR for findings. Refer to PACS for any patient radiation dose information.Urinalysis w/Microscopic + Reflex to [id number] 05:25:57 Test Item Value Reference Range Interpretation Comments Color, UA (test code = Yellow 5778-6) Clarity, UA (test code = Clear 5767-9) Specific [place], UA >=1.030 1.001-1.035 (test code = 5811-5) pH, UA (test code = 5.5 5.0-8.0 5803-2) Protein, UA (test code = 30 mg/dL Negative A 63431-8) Glucose, UA (test code = Negative Negative 365) Ketones, UA (test code = Negative Negative 2514-8) Bilirubin, UA (test code Negative Negative = 28144-8) Blood, UA (test code = Moderate Negative A 06894-2) Nitrite, UA (test code = Negative Negative 5802-4) Leukocytes, UA (test Trace Negative A code = 5799-2) Urobilinogen, UA (test 1.0 mg/dL 0.2-1.0 code = 35802-7) Bacteria, UA (test code Many = 67396-6) RBC, UA (test code = >100 See_Comment [Autom ated message] 799-7) The system [facility] generated this result transmit roni reference range : /HPF. The refer ence range was not u sed to interpret th is result as normal/abnormal . WBC, UA (test code = >100 See_Comment [Autom ated message] 75293-3) The system [facility] generated this result transmit roni reference range : /HPF. The refer ence range was not u sed to interpret th is result as normal/abnormal . SQUAMOUS EPITHELIAL 50-100 See_Comment [Automa roni message] (test code = 73969-4) The sy stem which generated this result transmit roni reference range : /HPF. The refer ence range was not u sed to interpret th is result as normal/abnormal . Specimen Source (test code = 2795) Lab Interpretation (test Abnormal code = 96892-9) [facility] [id number] 05:25:57 Test Item Value Reference Range Interpretation [...] code = 1663) SOURCE(BEAKER) (test code = 3911) COMPREHENSIVE METABOLIC [id number] 00:47:30 Test Item Value Reference Range Interpretation [...] 1092) DATA TO CALCULA TE ESTIMATED GFR. Oil Mixer ID - uksgwtbfe269Sxrjdfbc ID - rrzzzvehk696Xvllyogb ID - fpxqiieuj970Kntqaotl ID - rwmlzgkjr980Fwmileqp ID - miwywhfkt664Pthawryz ID - vateebckb804Ptcwajfe ID - qpimhhywn654Zofxjumo ID - awgqqrsca238Dglamdno ID - ciajkbzrx220Xlkfajrc ID - npuqmxpmj524Zwbxnjzj ID - tpvhotpjr567Wbiesrzk ID - dibmcjnio286Xmymsnco ID - korzowluy071Qprufqsr ID - ovfuylrws456Zvpkpeyf ID - ilivnayhl366Xsowjldt ID -[id number] 00:40:39 Test Item Value Reference Range Interpretation Comments MAGNESIUM (BEAKER) (test code = 1.9 mg/dL 1.5-3.0 627) Oil Mixer ID - pivafaudw117Tbyrfsrr ID - fbursydji944Gcgsvipx ID - jgisejjzp264Xuwioqos ID - ivvnitpeb734AZRMWHTUXE1432-27-24 00:37:05 Test Item Value Reference Range Interpretation Comments PHOSPHORUS (BEAKER) (test code = 3.0 mg/dL 2.5-4.5 604) Oil Mixer ID - ihayxgmor070BMCKYG ACID, [id number] 00:37:05 Test Item Value Reference Range Interpretation Comments LACTATE BLOOD 0.78 mmol/L See_Comment [Automated me ssage] VENOUS (2) (BEAKER) The syst em which (test code = 2872) generated this result transmitted ref erence range: 0.50-<2. 00. The reference range was not used to interpr et this result as normal/abnormal . Oil Mixer ID - jhalnpxjf231Pvsmhnxb ID - gxtqossxm828Jnvgwdjd ID - ihkoenabr372Dfebglyc ID - zrzlwvgkk532MJQGGGTGKFI TIME/[id number] 00:33:44 Test Item Value Reference Range Interpretation Comments PROTIME (BEAKER) 11.9 seconds 9.3-12.0 Final Infor mation (test code = 759) (Auto Outp ut) INR (BEAKER) (test 1.09 See_Comment Final Inf ormation code = 370) (Auto Output) [Automated mess age] The system [facility] generated this result transmitted ref erence range: <=5.90. The reference range was not used to int erpret this result as normal/abnormal . RECOMMENDED COUMADIN/WARFARIN INR THERAPY RANGESSTANDARD DOSE: 2.0 - 3.0 Includes: PROPHYLAXIS for venous thrombosis, systemic embolization; TREATMENT for venous thrombosis and/or pulmonary embolus.HIGH RISK: Target INR is 2.5-3.5 for patients with mechanical heart valves.CBC W/PLT COUNT & AUTO [id number] 00:25:33 Test Item Value Reference Range Interpretation [...] H PERCENT (BEAKER) (test code = 2801) SARS-COV-2(COVID19),[id number] 00:00:00 Test Item Value Reference Range Interpretation Comments SARS-CoV-2 INTERPRETATION NEGATIVE SEE NOTE (test code = 37430-2) SOURCE (test code = 91441-4) NASOPHARYNGEAL Comp. Metabolic Panel (14) [facility]2021-05-13 00:00:00 Test Item Value Reference Range Interpretation Comments Glucose (test code = 2345-7) 91 65-99 BUN (test code = 3094-0) 23 8-27 Creatinine (test code = 2160-0) 0.68 0.57-1.00 eGFR If NonAfricn Am (test code = 87 >59 97822-4) eGFR If Africn Am (test code = 35524-9) 100 >59 BUN/Creatinine Ratio (test code = 34 04-26 3097-3) Sodium (test code = 2951-2) 141 134-144 Potassium (test code = 2823-3) 4.5 3.5-5.2 Chloride (test code = 2075-0) 104 96-106 Carbon Dioxide, Total (test code = 2027-12) Calcium (test code = 14430-5) 8.8 8.7-10.3 Protein, Total (test code = 2885-2) 7.1 6.0-8.5 Albumin (test code = 1751-7) 3.9 3.7-4.7 Globulin, Total (test code = 76925-4) 3.2 1.5-4.5 A/G Ratio (test code = 1759-0) 1.2 1.2-2.2 Bilirubin, Total (test code = 1975-2) 0.6 0.0-1.2 Alkaline Phosphatase (test code = 77 44-121 6768-6) AST (SGOT) (test code = 1920-8) 15 0-40 ALT (SGPT) (test code = 1742-6) 15 0-32 SARS-COV 2 AntigenSARS-COV 2 AntigenSARS-COV 2 AntigenSARS-COV 2 Antigen Notes Date/Time Note Provider Source 2021-09-23 00:15:15-00:00 ESTUARDO MC [facility] OPERATIVE/PROCEDURE REPORT ORALIA PIERCE FACILITY: [facility] Billing #: [id number] Room: [address] [place] [address] MR #: [id number] : 1945 DATE OF PROCEDURE: 09/22/2021 SURGEON: Estuardo Mc MD TIME: 1900 hours. PREOPERATIVE DIAGNOSIS: Right distal ureteral st one with complicated urinary tract infection. POSTOPERATIVE DIAGNOSIS: Right distal ureteral s tone with complicated urinary tract infection. PROCEDURE: Cystoscopy, placement of right ureter al stent. NEUROSCIENCE SPECIALIST: None. ANESTHESIA: General anesthesia. COMPLICATIONS: None evident at the time of the p rocedure. FINDINGS: There was some resistance in the dista l ureter with a significant cystocele, otherwise normal anatom y. DISPOSITION: Stable to PACU. DRAINS: Right ureteral stent 24 cm 6-Montserratian. ESTIMATED BLOOD LOSS: Minimal. INDICATIONS FOR PROCEDURE: This is a very pleasa nt woman, who was transferred for higher level of care. She wa s noted to have a complex urinary tract infection. Therefor e, the stone is not being treated. She is being stented to be brought back when she is sterile. All the risks and benefits discussed in detail including bleeding, infection, damage to surrounding structures, need for further procedures. She is willing to proceed. PROCEDURE IN DETAIL: The patient was brought to the operative suite, placed in supine position. Once adequate level of general anesthesia was induced, she was prepped and draped in standard sterile fashion. A 20-Montserratian Olympus cy stoscope was entered into the bladder, please see the finding s. The right ureteral orifice was identified and a wire was p assed without difficulty. There was some resistance in the dis herlinda ureter. Under fluoroscopic guidance, the wire was seen t o be in the area of the kidney. A stent was placed. Proximal and distal coils were identified radiographically. The dist al coil was seen with the scope. The bladder was drained. Th e string was left attached and the patient was awoken and taken ba to post anesthesia recovery in excellent condition. LOB/MODL /[id number]
--- NOTE | 2022-10-30 21:40 | RAD REPORT ---
EXAM DESCRIPTION: RAD - Knee Left 3 View - 10/30/2022 9:33 pm CLINICAL HISTORY: Pain;Smash injury COMPARISON: Lumbar Spine 3 Views dated 10/30/2022 FINDINGS: Mild diffuse osteopenia. No definitive fracture or dislocation. No significant joint effus ion. If pain persists, follow-up nonemergent MRI may be helpful.
--- NOTE | 2022-10-30 21:47 | RAD REPORT ---
EXAM DESCRIPTION: RAD - Lumbar Spine 3 Views - 10/30/2022 9:33 pm CLINICAL HISTORY: SMASH INJURY Radiculopathy COMPARISON: Lumbar Spine 3 Views dated 05/12/2019; LUMBAR SPINE 3 VIEWS dated 03/05/2015 FINDINGS: Prominent diffuse osteopenia is seen. Levoscoliosis is present of the lumbar spine. Modera te degenerative anterolisthesis of L4 on 5 is present. Cholecystectomy clips. IMPRESSION: Moderate lower lumbar spondylosis.
--- NOTE | 2022-10-30 21:52 | RAD REPORT ---
EXAM DESCRIPTION: CT - CTHCSPWOC - 10/30/2022 9:42 pm CLINICAL HISTORY: Trauma, head and neck injury. fall COMPARISON: No comparisons TECHNIQUE: Axial 5 mm thick images of the head were obtained. Axial 2 mm thick images of the cervical spine were obtained with sagittal and coronal reconstruction images generated and reviewed. All CT scans are performed using dose optimization technique as appropriate and may include automated exposure control or mA/KV adjustment according to patient size. FINDINGS: CT HEAD WITHOUT CONTRAST: No acute hemorrhage, hydrocephalus or extra-axial collection is identified.Area of gliosis is seen ri ght frontal lobe.No areas of brain edema or midline shift. The paranasal sinuses and mastoids are clear.The calvarium is intact. CT CERVICAL SPINE WITHOUT CONTRAST: No fracture or subluxation.Moderate mid and lower cervical degenerative changes.No prevertebral soft tissues swelling is identified. IMPRESSION: No acute intracranial or cervical spine findings.
--- NOTE | 2022-10-30 22:10 | ER ---
Nurse's Notes [facility] Name: Oralia Garcia Age: 77 yrs Sex: Female : 1945 Arrival Date: 10/30/2022 Time: 20:34 Bed 12 Private MD: Jaziel Felder Diagnosis: Fall (on) (from) unspecified stairs and steps;Low back pain;Sprain of unspecified site of left knee Presentation: 10/30 20:41 Chief complaint: Patient states: left knee pain since last pm missed step on last rung kl of ladder and fell on left knee. Care prior to arrival: None. Mechanism of Injury: Fall down 1 steps. Trauma event details: Injury occurred in the [facility], Injury occurred: at home. 20:41 Acuity: LIGIA 4 kl 20:41 Method Of Arrival: Ambulatory kl Triage Assessment: 20:43 General: Appears uncomfortable, well groomed, well developed, Behavior is cooperative. kl Pain: Complains of pain in lateral aspect of left knee and posterior aspect of left knee Pain currently is 2 out of 10 on a pain scale. at worst was 10 out of 10 on a pain scale. Aggravated by weight bearing. Historical: - Allergies: 20:42 Codeine; kl 20:42 Darvon; kl - PMHx: 20:42 Anxiety; Depression; restless leg; SIATICA; kl - PSHx: 20:42 Cholecystectomy; Total abdominal hysterectomy; kl - Immunization history:: Adult Immunizations up to date. - Social history:: Smoking status: Patient denies any tobacco usage or history of. Screenin:50 [facility] ED Fall Risk Assessment (Adult) History of falling in the last 3 months, kl including since admission Yes- single mechanical fall (1 pt) Confusion or Disorientation No (0 pts) Intoxicated or Sedated No (0 pts) Impaired Gait Yes (1 pt) Mobility Assist Device Used Yes (1 pt) Altered Elimination No (0 pt) Score/Fall Risk Level 3 or more points = High Risk Oriented to surroundings, Maintained a safe environment, Educated pt \T\ family on fall prevention, incl call for assistance when getting out of bed, Used ambulatory aids as needed (educated on \T\ assisted with). Abuse screen: Denies threats or abuse. Nutritional screening: No deficits noted. Tuberculosis screening: No symptoms or risk factors identified. Assessment: 20:49 General: Appears uncomfortable, Behavior is calm, cooperative. Pain: Complains of pain kl in posterior aspect of left knee and lateral aspect of left knee. Neuro: No deficits noted. Cardiovascular: No deficits noted. Respiratory: No deficits noted. GI: No deficits noted. No signs and/or symptoms were reported involving the gastrointestinal system. : No deficits noted. No signs and/or symptoms were reported regarding the genitourinary system. EENT: No deficits noted. No signs and/or symptoms were reported regarding the EENT system. Derm: No deficits noted. No signs and/or symptoms reported regarding the dermatologic system. Musculoskeletal: Reports pain in posterior aspect of left knee and lateral aspect of left knee. 22:23 Reassessment: Patient appears in no apparent distress at this time. Patient is alert, kl oriented x 3, equal unlabored respirations, skin warm/dry/pink. Patient states feeling better. Patient states symptoms have improved. Vital Signs: 20:49 Weight 86.18 kg (R); Height 5 ft. 4 in. ; kl 20:49 Body Mass Index 32.61 (86.18 kg, 162.56 cm) kl ED Course: 20:37 Patient arrived in ED. mr 20:37 Jaziel Felder DO is Private Physician. mr 20:42 Triage completed. kl 20:45 [facility]C [facility] snw 20:45 Cyril Felton MD is Attending Physician. snw 20:51 Patient has correct armband on for positive identification. Bed in low position. Call kl light in reach. Side rails up X2. 21:35 Knee Left 3 View XRAY In Process Unspecified. EDMS 21:35 Lumbar Spine (3 Views) XRAY In Process Unspecified. EDMS 21:44 CT Head C Spine In Process Unspecified. EDMS 22:08 Jaziel Felder DO is Referral Physician. snw 22:23 No provider procedures requiring assistance completed. Patient did not have IV access kl during this emergency room visit. Knee immobilizer applied on left knee. Administered Medications: No medications were administered Medication: 20:51 VIS not applicable for this client. kl Outcome: 22:10 Discharge ordered by . snw 22:23 Discharged to home ambulatory. kl 22:23 Condition: stable 22:23 Discharge instructions given to patient, Instructed on discharge instructions, follow up and referral plans. medication usage, Demonstrated understanding of instructions, follow-up care, medications, Prescriptions given X 2. 22:23 Patient left the ED. ade Signatures: Dispatcher [employer] EDFrancie Hurley RN RN Vashti Levi, STUFFING MACHINE OPERATOR-C STUFFING MACHINE OPERATOR-Csnw Tierra Frausto mr Corrections: (The following items were deleted from the chart) 20:43 20:42 Allergies: Morphine; ade booker
--- NOTE | 2022-10-30 22:10 | EDPHYS ---
Physician Documentation [facility] Name: Oralia Garcia Age: 77 yrs Sex: Female : 1945 Arrival Date: 10/30/2022 Time: 20:34 Bed 12 Private MD: [facility] ED Physician Cyril Felton HPI: 10/30 22:03 This 77 yrs old Female presents to ER via Ambulatory with complaints of Fall Injury, snw Leg Pain. 22:03 Details of fall: The patient fell from an upright position, missed bottom rung of snw ladder and fell last pm. Onset: The symptoms/episode began/occurred 1 day(s) ago, and became persistent. Associated injuries: The patient sustained injury to the head, neck injury, injury to the low back, lateral aspect of left knee. Severity of symptoms: At their worst the symptoms were moderate. It is unknown whether or not the patient has had similar symptoms in the past. It is unknown whether or not the patient has recently seen a physician. pt fell post missing rung of ladder. struck left parieto-occiputal area, no LOC. struck lateral left leg. Historical: - Allergies: 20:42 Codeine; kl 20:42 Darvon; kl - PMHx: 20:42 Anxiety; Depression; restless leg; SIATICA; kl - PSHx: 20:42 Cholecystectomy; Total abdominal hysterectomy; kl - Immunization history:: Adult Immunizations up to date. - Social history:: Smoking status: Patient denies any tobacco usage or history of. ROS: 21:40 Constitutional: Negative for fever, chills, and weight loss, Eyes: Negative for injury, snw pain, redness, and discharge, ENT: Negative for injury, pain, and discharge, Neck: Negative for injury, pain, and swelling, Cardiovascular: Negative for chest pain, palpitations, and edema, Respiratory: Negative for shortness of breath, cough, wheezing, and pleuritic chest pain, Abdomen/GI: Negative for abdominal pain, nausea, vomiting, diarrhea, and constipation, Back: Negative for injury and pain, : Negative for injury, bleeding, discharge, and swelling, Skin: Negative for injury, rash, and discoloration, Neuro: Negative for headache, weakness, numbness, tingling, and seizure, Psych: Negative for depression, anxiety, suicide ideation, homicidal ideation, and hallucinations. 21:40 MS/extremity: Positive for injury or acute deformity, contusion, pain, of the lateral aspect of left knee. Exam: 21:39 Constitutional: This is a well developed, well nourished patient who is awake, alert, snw and in no acute distress. Eyes: Pupils equal round and reactive to light, extra-ocular motions intact. Lids and lashes normal. Conjunctiva and sclera are non-icteric and not injected. Cornea within normal limits. Periorbital areas with no swelling, redness, or edema. ENT: Nares patent. No nasal discharge, no septal abnormalities noted. Tympanic membranes are normal and external auditory canals are clear. Oropharynx with no redness, swelling, or masses, exudates, or evidence of obstruction, uvula midline. Mucous membranes moist. Neck: Trachea midline, no thyromegaly or masses palpated, and no cervical lymphadenopathy. Supple, full range of motion without nuchal rigidity, mild vertebral tenderness to C6-C7 area. No Meningismus. Chest/axilla: Normal chest wall appearance and motion. Nontender with no deformity. No lesions are appreciated. Cardiovascular: Regular rate and rhythm with a normal S1 and S2. No gallops, murmurs, or rubs. Normal PMI, no JVD. No pulse deficits. Respiratory: Lungs have equal breath sounds bilaterally, clear to auscultation and percussion. No rales, rhonchi or wheezes noted. No increased work of breathing, no retractions or nasal flaring. Abdomen/GI: Soft, non-tender, with normal bowel sounds. No distension or tympany. No guarding or rebound. No evidence of tenderness throughout. Back: No spinal tenderness. No costovertebral tenderness. Full range of motion. Skin: Warm, dry with normal turgor. Normal color with no rashes, no lesions, and no evidence of cellulitis. Neuro: Awake and alert, GCS 15, oriented to person, place, time, and situation. Cranial nerves II-XII grossly intact. Motor strength 5/5 in all extremities. Sensory grossly intact. Cerebellar exam normal. Normal gait. Psych: Awake, alert, with orientation to person, place and time. Behavior, mood, and affect are within normal limits. 21:39 Head/face: Noted is contusion, that is superficial, of the left occipital area and left base of the skull. 21:39 Musculoskeletal/extremity: Extremities: grossly normal except: noted in the lateral aspect of left knee: tenderness, ROM: intact in all extremities, Sensation intact. Vital Signs: 20:49 Weight 86.18 kg (R); Height 5 ft. 4 in. ; kl 20:49 Body Mass Index 32.61 (86.18 kg, 162.56 cm) kl MDM: 20:45 Patient medically screened. snw 22:11 Differential diagnosis: closed head injury, contusion, fracture, sprain. Data reviewed: snw vital signs, nurses notes, radiologic studies, CT scan, plain films. Counseling: I had a detailed discussion with the patient and/or guardian regarding: the historical points, exam findings, and any diagnostic results supporting the discharge/admit diagnosis, radiology results, the need for outpatient follow up, for definitive care, to return to the emergency department if symptoms worsen or persist or if there are any questions or concerns that arise at home. Refusal of service: The patient/guardian displays adequate decision making capability and despite a detailed discussion of alternatives, benefits, risks, and consequences refuses: Medications, declines pain medications at this time. Special discussion: Based on the patient's history, exam and DX evaluation, there is no indication for emergent intervention or inpatient TX. It is understood by the patient/guardian that if the SXs persist or worsen they need to return immediately for re-evaluation. Based on the history and exam findings, there is no indication for further emergent testing or inpatient evaluation. I discussed with the patient/guardian the need to see the orthopedic surgeon for further evaluation of the symptoms. I discussed with the patient/guardian the need to see the primary care provider for further evaluation of the symptoms. 10/30 21:07 Order name: CT Head C Spine; Complete Time: 21:58 snw 10/30 21:07 Order name: Knee Left 3 View XRAY; Complete Time: 21:44 snw 10/30 21:07 Order name: Lumbar Spine (3 Views) XRAY; Complete Time: 21:58 snw 10/30 21:08 Order name: Knee Immobilizer; Complete Time: 22:07 snw Administered Medications: No medications were administered Disposition Summary: 10/30/22 22:10 Discharge Ordered Location: Home snw Condition: Stable snw Diagnosis - Fall (on) (from) unspecified stairs and steps snw - Low back pain snw - Sprain of unspecified site of left knee snw Followup: snw - With: Jaziel Felder DO - When: 2 - 3 days - Reason: Recheck today's complaints, Continuance of care, Re-evaluation by your physician Followup: snw - With: Emergency Department - When: As needed - Reason: Worsening of condition Discharge Instructions: - Discharge Summary Sheet snw - Fall Prevention in the Home, Adult snw - How to Use a Knee Immobilizer snw - Knee Sprain, Adult snw - Musculoskeletal Pain snw - How to Use Cold Therapy snw - Heat Therapy snw Forms: - Medication Reconciliation Form snw - Thank You Letter snw - Antibiotic Education snw - Prescription Opioid Use snw - [email or web address] snw Prescriptions: - Diclofenac Sodium 75 mg Oral Tablet Sustained Release - take 1 tablet by ORAL route 2 times per day; 30 tablet; Refills: 0, Product snw Selection Permitted - orphenadrine citrate 100 mg Oral Tablet Sustained Release - take 1 tablet by ORAL route 2 times per day As needed; 20 tablet; Refills: 0, snw Product Selection Permitted Signatures: Dispatcher [employer] Francie Fregoso RN RN kl Waters, Shelly, ROLLER EMBOSSER-C ROLLER EMBOSSER-Csnw Corrections: (The following items were deleted from the chart) 20:43 20:42 Allergies: Morphine; ade booker
== END 2022-10-30 22:23 | disposition home or self-care (01) ==
LOC: ER 20:34
DX: S83.92XA Sprain of unspecified site of left knee, initial encounter (principal); M54.50 Low back pain, unspecified; W10.9XXA Fall (on) (from) unspecified stairs and steps, initial encounter; Z88.5 Allergy status to narcotic agent
CPT/HCPCS: 70450; 72100; 72125; 99283

== ENCOUNTER 2023-12-08 00:50 | Emergency (ER) | payer OTHER ==
[2023-12-08] MEDS ORDERED: KETOROLAC 30 MG/ML INJ ONE (01:28)
[2023-12-08] MEDS ORDERED: DIPHENHYDRAMINE 50 MG/ML VIAL ONE (01:29)
[2023-12-08] MEDS ORDERED: NA CHLORIDE 0.9% 1,000 ML ONE (01:29)
[2023-12-08 02:12] LABS: Anion Gap 5.3 mEq/L (5.0-15.0); Potassium 3.3 mEq/L (3.5-5.1)
[2023-12-08 02:21] LABS: SARS-CoV-2 Antigen CONTROL BLUE LINE VIS/BG OK; SARS-CoV-2 Antigen Rapid Res Positive (Negative)
[2023-12-08 02:29] LABS: Absolute Basophils 0.1 K/uL (0-0.5); Absolute Eosinophils 0.2 K/uL (0-0.5); Absolute Lymphocytes (CBC) 1.2 K/uL (0.7-4.9); Absolute Monocytes 0.9 K/uL (0.1-1.3); Absolute Neutrophil 3.6 K/uL (1.8-8.0); Basophils % 1.2 % (0-1.3); Eosinophils % 2.6 % (0-4.4); Hematocrit 34.8 % (36.0-45.0); Hemoglobin 11.8 g/dL (12.0-15.0); Lymphocytes % 19.7 % (15.3-44.8); MCH 31.4 pg (27.0-35.0); MCHC 33.9 g/dL (32.0-36.0); MCV 92.5 fL (80-100); MPV 7.9 fL (7.6-11.3); Monocytes % 15.3 % (3.3-12.3); Neutrophils % 61.2 % (41.7-73.7); Nucleated Red Blood Cells % 0.1 % (0-0); Platelets 200 thou/uL (152-406); RBC Red Blood Cell Count 3.76 M/uL (3.86-4.86); Red Cell Distribution Width 12.9 % (12.1-15.2)
[2023-12-08] MEDS ORDERED: POTASSIUM CL SA 10 MEQ TAB PO ONE (02:50)
--- NOTE | 2023-12-08 02:51 | EDPHYS ---
Physician Documentation [facility] Name: Oralia Garcia Age: 78 yrs Sex: Female : 1945 Arrival Date: 12/08/2023 Time: 00:50 Bed 15 Private MD: ED Physician Esteban Church HPI: 12/07 01:13 This 78 yrs old Female presents to ER via Ambulatory with complaints of Flu ec2 Symptoms. 01:13 Patient arrives today for evaluation of URI symptoms symptoms. Patient reports that she ec2 has been experiencing 2 days of symptoms, reports she is having cough and congestion, runny nose as well as body aches as well as subjective fevers and chills. No vomiting, no diarrhea.. Historical: - Allergies: 01:08 Codeine; al5 01:08 Darvon; al5 - PMHx: 01:08 Anxiety; Depression; restless leg; SIATICA; al5 - PSHx: 01:08 Cholecystectomy; Total abdominal hysterectomy; al5 - Immunization history:: Adult Immunizations up to date. - Infectious Disease History:: Denies. - Social history:: Smoking status: Patient denies any tobacco usage or history of. ROS: 01:13 Constitutional: as per hpi ec2 Exam: 01:13 Constitutional: GEN: NAD Head: atraumatic Eyes: EOMI Ears: External ears are ec2 normal. CV: regular rate LUNGS: no respiratory distress, no wheezes, no rales, no rhonchi ABD: non-distended SKIN: no evidence of rashes MSK: no evidence of trauma NEURO: moves all extremities equally Vital Signs: 01:06 BP 153 / 73; Pulse 92; Resp 18; Temp 98.5; Pulse Ox 98% on R/A; Weight 88.45 kg; Height al5 5 ft. 4 in. ; Pain 3/10; 01:15 BP 159 / 77; Pulse 81; Resp 16; Pulse Ox 96% on R/A; al5 01:30 BP 160 / 82; Pulse 77; Resp 18; Pulse Ox 98% on R/A; al5 02:00 BP 159 / 89; Pulse 96; Resp 18; Pulse Ox 96% on R/A; al5 02:30 BP 146 / 96; Pulse 93; Resp 18; Pulse Ox 98% on R/A; al5 01:06 Body Mass Index 33.47 (88.45 kg, 162.56 cm) al5 01:06 Pain Scale: Adult al5 MDM: 01:00 Patient medically screened. ec2 01:13 Data reviewed: vital signs. ED course: Patient arrives today for evaluation of URI ec2 signs symptoms. Examination remarkable for well-appearing nontoxic and appears otherwise in no acute distress with a reassuring examination. Will obtain lab work, chest x-ray, reassess. Differential includes viral infection, electrolyte disturbances, dehydration.. 02:30 ED course: Chest x-ray independently reviewed and interpreted by me, shows no acute ec2 intrathoracic process. . 02:30 ED course: Patient positive for COVID.. ec2 12/07 01:12 Order name: CBC with Diff; Complete Time: 02:48 ec2 12/07 01:12 Order name: BMP; Complete Time: 02:19 ec2 12/07 01:12 Order name: Influenza Screen (a \T\ B); Complete Time: 02:19 ec2 12/07 01:12 Order name: SARS RAPID; Complete Time: 02:25 ec2 12/07 01:12 Order name: CXR XRAY ec2 Administered Medications: 01:42 Drug: Ketorolac IVP 15 mg IVP once Route: IVP; Site: right antecubital; al5 02:48 Follow up: Response: No adverse reaction kl 01:42 Drug: Droperidol IVP 1.25 mg IVP once Route: IVP; Site: right antecubital; al5 02:48 Follow up: Response: No adverse reaction kl 01:42 Drug: diphenhydrAMINE IVP 12.5 mg IVP once Route: IVP; Site: right antecubital; al5 02:48 Follow up: Response: No adverse reaction kl 01:42 Drug: NS 0.9% IV 1000 ml IV at 1 bolus Per protocol; 1000 mL bolus Route: IV; Rate: 1 al5 bolus; Site: right antecubital; 03:02 Follow up: Response: No adverse reaction; IV Status: Completed infusion; IV Intake: al5 1000ml 02:59 Drug: Potassium Chloride PO 40 mEq PO once Route: PO; al5 02:59 Follow up: Response: No adverse reaction al5 Disposition Summary: 12/08/23 02:50 Discharge Ordered Notes: Location: Home ec2 Condition: Stable ec2 Diagnosis - Viral infection, unspecified ec2 - Hypokalemia ec2 - SARS-associated coronavirus as the cause of diseases classified elsewhere ec2 Followup: ec2 - With: Private Physician - When: - Reason: Re-evaluation by your physician Discharge Instructions: - Discharge Summary Sheet ec2 - Viral Illness, Adult ec2 Forms: - Medication Reconciliation Form ec2 - Antibiotic Education ec2 - Prescription Opioid Use ec2 - Patient Portal Instructions ec2 - Leadership Thank You Letter ec2 Prescriptions: - Zofran 4 mg Oral Tablet - take 1 tablet ORAL route every 12 hours As needed; 20 tablet; Refills: 0, ec2 Product Selection Permitted Signatures: Dispatcher [employer] EDEsteban Madden MD MD ec2 Pallavi Helm RN RN al5 Francie Sanches RN
--- NOTE | 2023-12-08 02:51 | ER ---
Nurse's Notes [facility] Name: Oralia Garcia Age: 78 yrs Sex: Female : 1945 Arrival Date: 12/08/2023 Time: 00:50 Bed 15 Private MD: Diagnosis: Viral infection, unspecified;Hypokalemia;SARS-associated coronavirus as the cause of diseases classified elsewhere Presentation: 12/07 01:06 Chief complaint: Patient states: c/o nasal congestion, runny nose, sinus pain, cough, al5 sore throat, headache, and body aches since yesterday evening. dr green told patient to take zyrtec to help, has had no relief. Coronavirus screen: chills, congestion, cough unrelated to allergies, headache, runny nose, sore throat, body aches. Ebola Screen: No symptoms or risks identified at this time. Initial Sepsis Screen: Does the patient meet any 2 criteria? HR > 90 bpm. No. Patient's initial sepsis screen is negative. Does the patient have a suspected source of infection? No. Patient's initial sepsis screen is negative. Risk Assessment: Do you want to hurt yourself or someone else? Patient reports no desire to harm self or others. Onset of symptoms was December 06, 2023. 01:06 Method Of Arrival: Ambulatory al5 01:06 Acuity: LIGIA 4 al5 Triage Assessment: 01:08 General: Appears in no apparent distress. ill, Behavior is calm, cooperative. Pain: al5 Complains of pain in generalized Pain currently is 3 out of 10 on a pain scale. EENT: Reports nasal congestion nasal discharge cough, sinus pain. Neuro: Level of Consciousness is awake, alert, obeys commands, Oriented to person, place, time, situation. Cardiovascular: Capillary refill < 3 seconds Patient's skin is warm and dry. Respiratory: Airway is patent Respiratory effort is even, unlabored, Respiratory pattern is regular, symmetrical. GI: No signs and/or symptoms were reported involving the gastrointestinal system. : No signs and/or symptoms were reported regarding the genitourinary system. Derm: Skin is intact, Skin is pink, warm \T\ dry. normal. Musculoskeletal: No signs and/or symptoms reported regarding the musculoskeletal system. Historical: - Allergies: 01:08 Codeine; al5 01:08 Darvon; al5 - PMHx: 01:08 Anxiety; Depression; restless leg; SIATICA; al5 - PSHx: 01:08 Cholecystectomy; Total abdominal hysterectomy; al5 - Immunization history:: Adult Immunizations up to date. - Infectious Disease History:: Denies. - Social history:: Smoking status: Patient denies any tobacco usage or history of. Screenin:11 [facility] ED Fall Risk Assessment (Adult) History of falling in the last 3 months, al5 including since admission No falls in past 3 months (0 pts) Confusion or Disorientation No (0 pts) Intoxicated or Sedated No (0 pts) Impaired Gait No (0 pts) Mobility Assist Device Used No (0 pt) Altered Elimination No (0 pt) Score/Fall Risk Level 0 - 2 = Low Risk Oriented to surroundings, Maintained a safe environment, Hourly rounding (assess needs \T\ fall precautionary measures) done. Abuse screen: Denies threats or abuse. Denies injuries from another. Nutritional screening: No deficits noted. Tuberculosis screening: No symptoms or risk factors identified. Assessment: 01:11 General: see triage assessment . al5 02:00 Reassessment: Patient appears in no apparent distress at this time. No changes from al5 previously documented assessment. Patient and/or family updated on plan of care and expected duration. Pain level reassessed. Patient is alert, oriented x 3, equal unlabored respirations, skin warm/dry/pink. Vital Signs: 01:06 BP 153 / 73; Pulse 92; Resp 18; Temp 98.5; Pulse Ox 98% on R/A; Weight 88.45 kg; Height al5 5 ft. 4 in. ; Pain 3/10; 01:15 BP 159 / 77; Pulse 81; Resp 16; Pulse Ox 96% on R/A; al5 01:30 BP 160 / 82; Pulse 77; Resp 18; Pulse Ox 98% on R/A; al5 02:00 BP 159 / 89; Pulse 96; Resp 18; Pulse Ox 96% on R/A; al5 02:30 BP 146 / 96; Pulse 93; Resp 18; Pulse Ox 98% on R/A; al5 01:06 Body Mass Index 33.47 (88.45 kg, 162.56 cm) al5 01:06 Pain Scale: Adult al5 ED Course: 00:54 Patient arrived in ED. im 00:55 Esteban Church MD is Attending Physician. ec2 00:56 Pallavi Helm RN is Primary Nurse. al5 01:08 Triage completed. al5 01:10 Arm band placed on right wrist. Patient placed in the treatment room, on a stretcher. al5 01:11 Patient has correct armband on for positive identification. Bed in low position. Call al5 light in reach. Side rails up X 1. Provided Education on: processes and procedures. 01:11 No provider procedures requiring assistance completed. al5 01:42 SARS RAPID Sent. al5 01:42 Influenza Screen (a \T\ B) Sent. al5 01:42 CBC with Diff Sent. al5 01:42 BMP Sent. al5 01:53 Inserted saline lock: 20 gauge in right antecubital area, using aseptic technique. al5 02:05 CXR XRAY In Process Unspecified. EDMS 03:01 IV discontinued, intact, bleeding controlled, No redness/swelling at site. Pressure al5 dressing applied. Administered Medications: 01:42 Drug: Ketorolac IVP 15 mg IVP once Route: IVP; Site: right antecubital; al5 02:48 Follow up: Response: No adverse reaction kl 01:42 Drug: Droperidol IVP 1.25 mg IVP once Route: IVP; Site: right antecubital; al5 02:48 Follow up: Response: No adverse reaction kl 01:42 Drug: diphenhydrAMINE IVP 12.5 mg IVP once Route: IVP; Site: right antecubital; al5 02:48 Follow up: Response: No adverse reaction kl 01:42 Drug: NS 0.9% IV 1000 ml IV at 1 bolus Per protocol; 1000 mL bolus Route: IV; Rate: 1 al5 bolus; Site: right antecubital; 03:02 Follow up: Response: No adverse reaction; IV Status: Completed infusion; IV Intake: al5 1000ml 02:59 Drug: Potassium Chloride PO 40 mEq PO once Route: PO; al5 02:59 Follow up: Response: No adverse reaction al5 Medication: 01:12 VIS not applicable for this client. al5 Intake: 03:02 IV: 1000ml; Total: 1000ml. al5 Outcome: 02:50 Discharge ordered by . ec2 03:01 Discharged to home ambulatory, al5 03:01 Condition: good 03:01 Discharge instructions given to patient, Instructed on discharge instructions, follow up and referral plans. medication usage, Demonstrated understanding of instructions, follow-up care, medications, Prescriptions given X 1, 03:02 Patient left the ED. al5 Signatures: Dispatcher [employer] Francie Fregoso, RN Polly oPnce Edwin, MD MD ec2 Pallavi Helm RN RN al5
[2023-12-08 03:18] VITALS: TEMP 98.5
[2023-12-08 03:23] VITALS: BP 146/96; O2SAT 98
--- NOTE | 2023-12-09 21:52 | RAD REPORT ---
EXAM DESCRIPTION: RAD - Chest Single View - 12/08/2023 2:04 am CLINICAL HISTORY: Cough. TECHNIQUE: Frontal view of the chest. COMPARISON: No relevant prior studies available. FINDINGS: Lungs: Unremarkable. No consolidation. Pleural space: Unremarkable. No pneumothorax. Heart: Unremarkable. No cardiomegaly. Mediastinum: Unremarkable. Normal mediastinal contour. Bones/joints: Multilevel spondylosis. No acute fracture. Vasculature: Thoracic aortic atherosclerosis. IMPRESSION: No acute disease. Electronically signed by: Josef Lewis MD 12/08/2023 03:06 AM CDT Due to temporary technical issues with the PACS/Fluency reporting system, reports are being signed by the in house radiologists without review as a courtesy to insure prompt reporting. The interpreting radiologist is fully responsible for the content of the report.
== END 2023-12-08 03:02 | disposition home or self-care (01) ==
LOC: ER 00:50
DX: U07.1 COVID-19 (principal); B34.9 Viral infection, unspecified; E87.6 Hypokalemia
CPT/HCPCS: 96361; 85025; 80048; 36415; 87804 ×2; 71045; 96375; 96374; 99284; 87811; J1200; J7030